=== PATIENT | female | born 1940 | race Caucasian/White ===

== ENCOUNTER 2022-10-28 09:28 | Outpatient (OUT) | payer MEDICARE, SELFPAY ==
[2022-10-28 09:46] LABS: Basophils Percent Auto 0.4 % (0.2-2.0); Eosinophils Absolute Auto 0.2 10^3/uL (0.0-0.7); Hematocrit 43.4 % (36.0-48.0); Hemoglobin 14.2 g/dL (12.0-16.0); Immature Granulocytes Abs Auto 0.01 10^3/uL (0.00-0.03); Immature Granulocytes Pct Auto 0.2 % (0.0-0.5); Lymphocytes Absolute Auto 1.6 10^3/uL (1.2-3.8); Lymphocytes Percent Auto 28.1 % (20.5-60.0); Mean Corpuscular HGB Conc 32.7 g/dL (29.9-35.2); Mean Corpuscular Hemoglobin 31.7 pg (26.7-34.0); Mean Corpuscular Volume 96.9 fL (81.0-99.0); Mean Platelet Volume 9.7 fL (9.5-13.5); Monocytes Absolute Auto 0.7 10^3/uL (0.3-0.8); Neutrophils Absolute Auto 3.2 10^3/uL (1.4-6.5); Neutrophils Percent Auto 55.3 % (43.0-75.0); Platelet Count 200 10^3/uL (150-450); Red Blood Count 4.48 10^6/uL (4.20-5.40); White Blood Count 5.7 10^3/uL (4.0-11.0)
[2022-10-28 10:26] LABS: Anion Gap 11.4; BUN Creatinine Ratio 16.9; Carbon Dioxide 28.5 mmol/L (21.0-32.0); Chloride 104 mmol/L (98-107); Chol HDL Ratio 3.2; Cholesterol 232 mg/dL (<=200); Estimated GFR (African America >60 (>=60); Estimated GFR (Non-African Ame >60 (>=60); Glucose 91 mg/dL (74-106); HDL Cholesterol 73 mg/dL (40-60); Potassium 3.9 mmol/L (3.5-5.1); Sodium 140 mmol/L (136-145); Triglycerides 103 mg/dL (<=150); VLDL CHOLESTEROL 20.6 mg/dL
== END 2022-10-28 09:29 ==
LOC: LAB 09:28
PROVIDERS: PCP Family Medicine
DX: I10 Essential (primary) hypertension (principal)
CPT/HCPCS: 36415; 80048; 80061; 85025

== ENCOUNTER 2022-10-31 10:06 | Outpatient (OUT) | payer MEDICARE, SELFPAY ==
--- NOTE | 2022-10-31 11:12 | CONS_ITS ---
CONSULTATION DATE: ??10/31/2022 TO:? Savanna Guajardo M.D. CHIEF COMPLAINT:? Includes left shoulder pain. HISTORY:? She reports the pain as being 2-7/10 pain, sharp in character, increased with activities such as lifting maneuvers and pushing/pulling maneuvers.? Denied any change in bowel and bladder habits or new sensorimotor changes in the upper or lower extremities. EXAM:? Her examination is notable for patient having no clinical radiculopathy or myelopathy involving the upper extremities.? She had nothing to suggest cervical facet loaded pain clinically on today?s visit.? She did have severe pain with left shoulder extension, internal rotation and adduction, as well as severe pain with left shoulder flexion with internal rotation.? She had a positive left sided empty can sign as well as full can sign, and a positive left sided Apley?s test.? IMPRESSION:? Our impression is patient appears to have chronic pain secondary to possible left rotator cuff tear with impingement syndrome. RECOMMENDATIONS:? I have recommended a left suprascapular nerve injection on today?s visit.? She is unable to have an MRI because of cochlear implants.? She had significant but only temporary reduction in symptoms with the left suprascapular nerve injection.? She may benefit from a rhizotomy of the left suprascapular nerve using radiofrequency ablation.? I have gone over the details of the procedure with the patient.? All her questions answered.? She agrees to proceed with the outlined plan. Of note, status post left suprascapular nerve injection in the office, she reports the pain is improved by at least 75%. As part of providing excellent, safe, comprehensive care, the following was completed at our patient's visit: 1. A medication reconciliation and review to ensure accurate knowledge of current/active medications, including asking our patients to inform us about any leru-eda-dzcjvki medications or herbal remedies/nutritional supplements/alternative remedies. 2. A review to specifically ensure our patients have had annual screening for: elevated body mass index (BMI, see intake chart for exact total), tobacco use, screening for depression, and screening for unhealthy alcohol use.? When screening is concerning, patients are provided with education and the specific recommendation to discuss the concerning health issue and treatment options with their primary care provider. NELSON
--- NOTE | 2022-10-31 11:12 | CONS_ITS ---
PROCEDURE DATE: ??10/31/2022 PROCEDURE:? Left suprascapular nerve injection in the office. PREOPERATIVE DIAGNOSIS:? Left rotator cuff tear.? Diagnosis codes:? S46.012a POSTOPERATIVE DIAGNOSIS:? Left rotator cuff tear. SOLUTION USED FOR INJECTION:? 2 mL of 2% lidocaine, 2 mL of 0.25% Marcaine and 10 mg of Kenalog, total of 5 mL and 1 mL used for the injection. IMMEDIATE COMPLICATIONS:? None. PROCEDURE:? After informed consent was obtained from the patient, placed in the sitting position.? Skin overlying the area was prepped with alcohol.? A 25 gauge 1 ? inch needle was inserted over the area of the suprascapular nerve.? Needle tip was advanced.? Resistance was encountered.? Patient had mild paresthesia, at which point we re-directed the needle tip and the paresthesia completely resolved.? We injected 1 mL of solution.? No indication of intravascular or intraneural needle tip placement.? No evidence of post procedural pneumothorax was noted.? She reports reduction in pain symptoms by at least 75%.? NELSON
== END 2022-10-31 10:07 | disposition home or self-care (01) ==
PROVIDERS: PCP Family Medicine; Visit Provider Anesthesiology Pain Medicine
DX: M25.512 Pain in left shoulder (principal); M75.42 Impingement syndrome of left shoulder; G89.29 Other chronic pain; M75.102 Unspecified rotator cuff tear or rupture of left shoulder, not specified as traumatic
CPT/HCPCS: 64418

== ENCOUNTER 2022-11-14 10:56 | Outpatient (OUT) | payer MEDICARE, SELFPAY ==
--- NOTE | 2022-11-14 11:20 | MM_ITS ---
Patient: EDUARDO LEA Exam Date: 11/14/2022 : 1940 Gender:F Ordering : DR Savanna Guajardo M.D. Admission #: [id number] Family : Order #: [id number] CLICK HERE TO VIEW EXAM RADIOLOGY REPORT PROCEDURE: MM TOMOSYNTHESIS SCREENING BI COMPARISON: MG MAMM SCREEN 3D [facility] CAD, 11/07/2021. MG MAMM SCREEN 3D [facility] CAD, 11/06/2020. MG MAMM SCREEN [facility] W CAD, 11/04/2019. MG MAMM [facility] SCRN W CAD DIG, 09/07/2013. INDICATIONS: Screening Calculator Name NCI Breast Cancer Risk Assessment Tool 5 Year Breast Cancer Risk 1.20% Lifetime Breast Cancer Risk 1.50% Personal Breast Cancer No Personal Ovarian Cancer No Treatments None Family Cancers Mother with ovarian cancer at age ~48. LOCATION: [facility] BREAST COMPOSITION: Extremely dense, which lowers the sensitivity of mammography. FINDINGS: DIAGNOSTIC CATEGORY 2--BENIGN FINDING: RIGHT BREAST: No significant suspicious finding. Scattered benign-appearing calcifications are present. No significant change has occurred. LEFT BREAST: No significant suspicious finding. No significant change has occurred. RECOMMENDATIONS: ROUTINE MAMMOGRAM AND CLINICAL EVALUATION IN 12 MONTHS. PLEASE NOTE: A NORMAL MAMMOGRAM DOES NOT EXCLUDE THE POSSIBILITY OF BREAST CANCER. A CLINICALLY SUSPICIOUS PALPABLE LUMP SHOULD BE BIOPSIED. Dictated by: David Alston M.D. on 11/14/2022 at 15:17 Approved by: David Alston M.D. on 11/14/2022 at 15:22
== END 2022-11-14 10:57 | disposition home or self-care (01) ==
LOC: MAMMO 10:56
PROVIDERS: PCP Family Medicine; Visit Provider Family Medicine
DX: Z12.31 Encounter for screening mammogram for malignant neoplasm of breast (principal); Z80.41 Family history of malignant neoplasm of ovary
CPT/HCPCS: 77063; 77067

== ENCOUNTER 2022-11-19 14:57 | Outpatient (OUT) | payer MEDICARE, SELFPAY ==
--- NOTE | 2022-11-19 17:47 | CONS_ITS ---
CONSULTATION DATE: ??11/19/2022 TO:? Savanna Guajardo M.D. CHIEF COMPLAINT:? Includes 3-5/10 pain in her left upper arm. HISTORY:? She describes it as a dull aching pain, which is increased with activities such as lifting maneuvers, pushing/pulling maneuvers.? She denies any change in bowel and bladder habits or new sensorimotor changes in the upper extremities. EXAMINATION:? Notable for patient having no clinical radiculopathy or myelopathy involving the upper extremities.? Patient appeared to have a moderate amount of crepitus of her left shoulder joint.? She had no tenderness overlying this area; however, she appeared to have some mild tenderness of the left deltoid.? Again, this is mild at best.? She had nothing to suggest rotator cuff dysfunction on today?s visit.? IMPRESSION:? Patient appears to have chronic pain secondary to residual left deltoid muscle tendonitis and/or spasm.? RECOMMENDATIONS:? I recommend no further intervention for her residual pain symptoms, but to continue with the use of baclofen and diclofenac as ordered.? Since she is doing fairly well, we will see the patient back in the office in approximately three months? time or sooner if needed. As part of providing excellent, safe, comprehensive care, the following was completed at our patient's visit: 1. A medication reconciliation and review to ensure accurate knowledge of current/active medications, including asking our patients to inform us about any lmie-apz-jniidwu medications or herbal remedies/nutritional supplements/alternative remedies. 2. A review to specifically ensure our patients have had annual screening for: elevated body mass index (BMI, see intake chart for exact total), tobacco use, screening for depression, and screening for unhealthy alcohol use.? When screening is concerning, patients are provided with education and the specific recommendation to discuss the concerning health issue and treatment options with their primary care provider. NELSON
== END 2022-11-19 14:58 | disposition home or self-care (01) ==
LOC: PM 14:59
PROVIDERS: PCP Family Medicine; Visit Provider Anesthesiology Pain Medicine
DX: G89.29 Other chronic pain (principal); M77.8 Other enthesopathies, not elsewhere classified; M62.838 Other muscle spasm
CPT/HCPCS: G0463

== ENCOUNTER 2022-12-06 09:38 | Outpatient (OUT) | payer MEDICARE, SELFPAY ==
--- NOTE | 2022-12-06 10:04 | PM.CN ---
Consult Note: HPI Data of Consult Patient: known to practice within the last 3 years Requesting Physician: Ana Gracia NP Primary Care Provider: Savanna Guajardo MD Consult Narrative cc:: CC: Ana Gracia NP Review of Systems ROS Status of ROS 10 or more systems reviewed and unremarkable except as noted in history and below Meds Home Medications and Allergies Home Medications Medication Instructions Recorded Confirmed Type acetaminophen 300 mg-codeine 30 mg 1 tab PO BID 11/06/22 11/06/22 History tablet baclofen 10 mg tablet 10 mg PO BID 11/06/22 11/06/22 History calcium-vitamin D3-vitamin K 500 1 tab PO DAILY 11/06/22 11/06/22 History mg-100 unit-40 mcg chewable tablet diclofenac sodium 50 mg 50 mg PO BID 11/06/22 11/06/22 History tablet,delayed release glucosamine-chondroitin 250 mg-200 2 tab PO DAILY 11/06/22 11/06/22 History mg tablet (Osteo Bi-Flex) lactobacillus combo no.13 1 1 cap PO DAILY 11/06/22 11/06/22 History billion cell capsule,delayed release (Probiotic Pearls Complete) magnesium 200 mg tablet 400 mg PO DAILY 11/06/22 11/06/22 History meclizine 25 mg chewable tablet 25 mg PO DAILY 11/06/22 11/06/22 History (Antivert) melatonin 5 mg tablet 5 mg PO DAILY 11/06/22 11/06/22 History metoprolol tartrate 50 mg tablet 50 mg PO DAILY 11/06/22 11/06/22 History multivitamin (Daily Multi-Vitamin 1 tab PO DAILY 11/06/22 11/06/22 History tablet) omega 9-xwo-jyk-fish oil 1,200 mg cap PO 11/06/22 History (144 mg-216 mg) capsule (Fish Oil) prasterone (dhea) 50 mg capsule 50 mg PO DAILY 11/06/22 11/06/22 History (DHEA) tramadol 50 mg tablet 50 mg PO BID 11/06/22 11/06/22 History vitamin B complex (B 1 tab PO DAILY 11/06/22 11/06/22 History Complex-Vitamin B12 tablet) zolmitriptan 5 mg tablet (Zomig) See Rx Instructions PO .COMPLEX 11/06/22 11/06/22 History Allergies Allergy/AdvReac Type Severity Reaction Status Date / Time No Known Drug Allergies Allergy Verified 11/06/22 15:33 Exam Constitutional Common normals: no apparent distress, average body habitus, oriented x3, healthy appearing, alert and well nourished General appearance: cooperative and well developed HENOR Common normals: normocephalic Head and scalp: normocephalic Head images: 1. Mouth: oral and palatal mucosa normal Eye Common normals: PERRL Pupil: PERRL Neck & C-Spine Common normals: full ROM General: normal visual inspection Cervical spine: cervical ROM abnormal, pain with cervical ROM, paracervical muscle tenderness and trapezius muscle tenderness Neck images: 1. Chest Common normals: inspection of chest normal Respiratory Common normals: normal respiratory effort, no retractions and no use of accessory muscles Back & Pelvis Thoracic spine/upper back: normal to inspection and thoracic ROM normal Lumbar spine/lower back: normal to inspection and lumbar ROM normal Extremity Common normals: normal to inspection and full ROM General: normal exam except as noted Neuro Common normals: oriented x3, CN's II-XII intact bilaterally, moves all extremities, no focal motor deficits, no sensory deficits noted, deep tendon reflexes 2+ bilaterally and gait normal Sensorium/orientation: alert Cranial nerves: CN normal except as noted Speech: speech normal Gait (neuro): normal gait Sensory exam: extremities Motor exam: strength 5/5 throughout and no movement abnormalities noted Psych Common normals: mental status grossly normal, thought process normal, cooperative, affect normal, speech normal and activity/motor behavior normal Attitude: calm and engaged Speech: normal speech Thought process: normal thought process Assessment and Plan Assessment and Plan (1) Cervical spondylosis: (2) Spondylosis of cervical region without myelopathy or radiculopathy: (3) Muscle spasm: Plan Pt following up in office for chronic neck pain. Patient experiencing pain in cervical area radiating down into shoulders. Patient has increased pain with lifting and activity, worsens throughout the day and evening. Patient experiencing pain bilaterally worse on the left than right. Sensation and strength intact 5/5 BUE. No radiculopathy, no headaches. Patient has failed conservative therapies at home including stretches, heat/ice, and prn NSAID use. Patient had FI in C3/4 13 Sep 2022 and received 80% relief of pain and improvement in ADLs. Patient would like to repeat FI injection to work towards a RFA thermal ablation. Patient prescribed naloxone as she is on tramadol, reviewed instructions with patient and importance of having while she is on a high risk opiod medication. Patients questions answered, will schedule for FI #2 and follow up in office.
== END 2022-12-06 09:39 | disposition home or self-care (01) ==
LOC: PM 09:39
PROVIDERS: PCP Family Medicine; Visit Provider Nurse Practitioner
DX: M47.812 Spondylosis without myelopathy or radiculopathy, cervical region (principal); M62.838 Other muscle spasm
CPT/HCPCS: G0463

== ENCOUNTER 2022-12-24 06:50 | Day surgery (SDC) | payer MEDICARE, SELFPAY ==
[2022-12-24 07:25] VITALS: BP 140/68; PULSE 54; RESP 16; TEMP 36.2; O2SAT 98
[2022-12-24 08:01] VITALS: RESP 20
[2022-12-24 08:03] VITALS: BP 143/66; PULSE 60; O2SAT 96
[2022-12-24] MEDS: BUPIVACAINE HCL 0.25% PF 25 MG/10 ML VIAL 8 ML INJ (08:04)
[2022-12-24 08:05] VITALS: BP 158/72; PULSE 57; O2SAT 96
--- NOTE | 2022-12-24 08:39 | W.PM.PROCNOT ---
Date of procedure: 12/24/22 Pre-op diagnosis: cervical spondylosis Post-op diagnosis: same as pre-op Procedure: Bilateral cervical 3/4, 4/5 facet injection Under fluoroscopic guidance Solution injected: 2millilitersMarcaine 0.25% Anesthesia :none Immediate complications none Time out process compliant After informed consent obtained from the patient placed in the Prone proposition . area was prepped and draped in a sterile fashion using betadine. 25 gauge spinal needle inserted over each of the above mentioned target areas . [place] were directed towards the target under fluoroscopic guidance . after encountering each of the targets , no indication of intravascular intraneuronal or intrathecal needle tip placement. Then 0 .5 to 1 Milliliter was injected at each level. [place] removed postoperatively. patient transferred to recovery in stable condition to be discharged home after meeting criteria Anesthesia: Local Surgeon: Christian Mortensen Condition: stable
== END 2022-12-24 08:14 | disposition home or self-care (01) ==
PROVIDERS: PCP Family Medicine; Visit Provider Anesthesiology Pain Medicine
DX: M47.812 Spondylosis without myelopathy or radiculopathy, cervical region (principal)
CPT/HCPCS: 64490; 64491

== ENCOUNTER 2023-01-01 08:36 | Outpatient (OUT) | payer MEDICARE, SELFPAY ==
--- NOTE | 2023-01-01 08:30 | PM.CN ---
Consult Note: HPI Data of Consult Patient: known to practice within the last 3 years Requesting Physician: Ana Gracia NP Primary Care Provider: Savanna Guajardo MD Consult Narrative Reason for consult: f/u from 12/24/22 Bilateral cervical 3/4, 4/5 facet injection #2 Narrative: Ninfa Franco a pleasant 82 year old female presents for evaluation of chronic neck and low back pain and evaluation after bilateral C 3/4 4/5 FB #2 procedure on 12/24. Patient received >80% pain relief and improvement in functional ability immediately following the procedure and for hours following. Patient found this to be beneficial and would like to discuss thermal RFA at bilateral C3/4 C4/5. cc:: CC: Ana Gracia NP Review of Systems ROS Status of ROS 10 or more systems reviewed and unremarkable except as noted in history and below Musculoskeletal Reports: back pain, neck pain, joint pain and muscle cramps PFSH PFS Medical History (Updated 01/01/23 @ 09:20 by Ana Gracia NP) Surgical History Meds Home Medications and Allergies Home Medications Medication Instructions Recorded Confirmed Type acetaminophen 300 mg-codeine 30 mg 1 tab PO BID 11/06/22 12/24/22 History tablet baclofen 10 mg tablet 10 mg PO BID 11/06/22 12/24/22 History calcium-vitamin D3-vitamin K 500 1 tab PO DAILY 11/06/22 12/24/22 History mg-100 unit-40 mcg chewable tablet diclofenac sodium 50 mg 50 mg PO BID 11/06/22 12/24/22 History tablet,delayed release glucosamine-chondroitin 250 mg-200 2 tab PO DAILY 11/06/22 12/24/22 History mg tablet (Osteo Bi-Flex) lactobacillus combo no.13 1 1 cap PO DAILY 11/06/22 12/24/22 History billion cell capsule,delayed release (Probiotic Pearls Complete) magnesium 200 mg tablet 400 mg PO DAILY 11/06/22 12/24/22 History meclizine 25 mg chewable tablet 25 mg PO DAILY 11/06/22 12/24/22 History (Antivert) melatonin 5 mg tablet 5 mg PO DAILY 11/06/22 12/24/22 History metoprolol tartrate 50 mg tablet 50 mg PO DAILY 11/06/22 12/24/22 History multivitamin (Daily Multi-Vitamin 1 tab PO DAILY 11/06/22 12/24/22 History tablet) omega 8-ths-zzj-fish oil 1,200 mg cap PO 11/06/22 History (144 mg-216 mg) capsule (Fish Oil) prasterone (dhea) 50 mg capsule 50 mg PO DAILY 11/06/22 12/24/22 History (DHEA) tramadol 50 mg tablet 50 mg PO BID 11/06/22 12/24/22 History vitamin B complex (B 1 tab PO DAILY 11/06/22 12/24/22 History Complex-Vitamin B12 tablet) zolmitriptan 5 mg tablet (Zomig) See Rx Instructions PO .COMPLEX 11/06/22 12/24/22 History Allergies Allergy/AdvReac Type Severity Reaction Status Date / Time No Known Drug Allergies Allergy Verified 12/24/22 07:27 Exam Narrative Exam Narrative: JEAN 11% Constitutional Documenting provider has reviewed patient's vital signs: yes Common normals: no apparent distress, average body habitus, oriented x3, healthy appearing, alert and well nourished General appearance: cooperative HENMT Common normals: normocephalic, hearing grossly normal bilaterally and moist oral mucous membranes Head and scalp: normocephalic Eye Common normals: PERRL Pupil: PERRL Neck & C-Spine Common normals: full ROM General: normal visual inspection Cervical spine: pain with cervical ROM and paracervical muscle tenderness Other: no radiculopathy. predominately axial neck pain Chest Common normals: inspection of chest normal Respiratory Common normals: normal respiratory effort, no retractions and no use of accessory muscles Back & Pelvis Thoracic spine/upper back: normal to inspection and thoracic ROM normal Lumbar spine/lower back: ROM limited and pain with ROM Sacroiliac joints: SI joint(s) abnormal (pain over left SIJ and with EVERT. Negative thigh thrust, danette, gaenslen) Extremity Common normals: normal to inspection and full ROM Neuro Common normals: oriented x3, CN's II-XII intact bilaterally, moves all extremities, no focal motor deficits, no sensory deficits noted, deep tendon reflexes 2+ bilaterally and gait normal Sensorium/orientation: alert Motor exam: strength 5/5 throughout and no movement abnormalities noted Psych Common normals: mental status grossly normal, thought process normal, cooperative, affect normal, speech normal and activity/motor behavior normal Speech: normal speech Thought process: normal thought process Results Additional Findings Additional findings: I have checked an [place]AR[place] report on this patient today and there are no aberrancies noted in the prescribing history.?? A drug screen was completed and reviewed within the last year, and if there has not been a drug screen completed we ordered one today to monitor higher risk, state monitored pain medication use. As part of providing excellent, safe, comprehensive care, the following was completed at our patient's visit: 1. A medication reconciliation and review to ensure accurate knowledge of current/active medications, including asking our patients to inform us about any gohi-wnc-whwcviz medications or herbal remedies/nutritional supplements/alternative remedies. 2. A review to specifically ensure our patients have had annual screening for: elevated body mass index (BMI), tobacco use, screening for depression, and screening for unhealthy alcohol use. When screening is concerning, patients are provided with education and the specific recommendation to discuss the concerning health issue and treatment options with their primary care provider. Assessment and Plan Assessment and Plan (1) Spondylosis of cervical region without myelopathy or radiculopathy: (2) Cervical spondylosis: (3) Muscle spasm: (4) Lumbar spondylosis: (5) Chronic left hip pain: Assessment and Plan: patient reporting left chronic hip pain, see assessment above will order left hip and SIJ xray (6) Chronic, continuous use of opioids: Assessment and Plan: no side effects. risks vs benefits discussed. (7) Medication management: Plan left then right c3/4 C4/5 thermal RFA with PO sedation (will order 5-10mg valium PRN prior to procedure) left hip/SIJ xray UTOX today refill diclofenac 50mg BID pain continue baclofen 10mg 1/2 tab-1tab HS PRN muscle spasms continue tramadol 50mg BID PRN pain continue HEP consider lumbar facet blocks next as patient demonstrating low back pain with radiation to left hip but no radiculopathy or neurogenic claudication, reviewed prior imaging of lumbar spine
--- NOTE | 2023-01-01 09:36 | XR_ITS ---
The [address] [address] Patient Name: EDUARDO LEA MRN: [id number] date: 1940 Sex: F Assigned Patient Location: PM Current Patient Location: Accession/Order Number: [id number] Exam Date: 01/01/2023 09:45 Report Date: 01/01/2023 13:39 At the request of: WILBERT BARRAGAN Procedure: XR hip LT 2V w/ pelvis PROCEDURE: XR hip LT 2V w/ pelvis DATE: 01/01/2023 8:45 AM CDT COMPARISONS: None CLINICAL INDICATION: Left hip pain FINDINGS: There is no evidence of fractures or other acute osseous abnormalities. There is some bone demineralization. There is no evidence of left hip degenerative change. There is evidence of some degenerative spondylosis of the lower lumbar spine seen on frontal view the pelvis. XR/XR hip LT 2V w/ pelvis IMPRESSION: No acute osseous abnormalities identified. No evidence of left hip degenerative changes.. Electronically authenticated by: GUILLERMO EM Date: 01/01/2023 13:39
== END 2023-01-01 08:37 | disposition home or self-care (01) ==
PROVIDERS: PCP Family Medicine; Visit Provider Nurse Practitioner
DX: M47.812 Spondylosis without myelopathy or radiculopathy, cervical region (principal); M62.838 Other muscle spasm; M47.816 Spondylosis without myelopathy or radiculopathy, lumbar region; M25.552 Pain in left hip; G89.29 Other chronic pain; Z79.891 Long term (current) use of opiate analgesic; Z51.81 Encounter for therapeutic drug level monitoring
CPT/HCPCS: 73502; G0463

== ENCOUNTER 2023-01-10 10:30 | Outpatient (OUT) | payer MEDICARE, SELFPAY ==
--- NOTE | 2023-01-10 10:39 | XR_ITS ---
The [address] [address] Patient Name: EDUARDO LEA MRN: [id number] date: 1940 Sex: F Assigned Patient Location: [facility] Current Patient Location: [facility] Accession/Order Number: [id number] Exam Date: 01/10/2023 10:55 Report Date: 01/10/2023 11:16 At the request of: RUBA HIGGINS Procedure: XR lumbar spine 2-3V EXAM: XR lumbar spine 2-3V HISTORY: Lesion Sciatic Nerve G57.02 COMPARISON: None. TECHNIQUE: 3 views FINDINGS: S-shaped scoliosis. Maintained vertebral body heights and disc spaces. Multilevel endplate degenerative changes of facet arthropathy. No gross acute fracture or subluxation. Constipation. Current exam is underpenetrated. XR/XR lumbar spine 2-3V IMPRESSION: Suboptimal exam that is underpenetration. Multilevel degenerative changes. Electronically authenticated by: CRUZ CARIAS Date: 01/10/2023 11:16
== END 2023-01-10 10:31 | disposition home or self-care (01) ==
LOC: RAD 10:33
PROVIDERS: PCP Family Medicine; Visit Provider Family Medicine
DX: G57.02 Lesion of sciatic nerve, left lower limb (principal)
CPT/HCPCS: 72100

== ENCOUNTER 2023-02-11 08:24 | Day surgery (SDC) | payer MEDICARE, SELFPAY ==
[2023-02-11 09:00] VITALS: BP 132/79; PULSE 75; RESP 16; TEMP 36.4; O2SAT 98
[2023-02-11] MEDS: 0.9 % SODIUM CHLORIDE 500 ML IV (09:13)
[2023-02-11] MEDS: BUPIVACAINE HCL 0.25% PF 25 MG/10 ML VIAL INJ (09:44)
[2023-02-11] MEDS: LIDOCAINE HCL 2% 400 MG/20 ML MDV 15 ML INJ (09:44)
[2023-02-11] MEDS: METHYLPREDNISOLONE ACETATE 40 MG/ML VIAL INJ (09:45)
[2023-02-11 10:02] VITALS: BP 120/65; PULSE 56; RESP 16; TEMP 36.7; O2SAT 100
[2023-02-11 10:05] VITALS: BP 121/62; PULSE 62; RESP 16; TEMP 36.7; O2SAT 99
--- NOTE | 2023-02-11 10:05 | W.PM.PROCNOT ---
Date of procedure: 02/11/23 Pre-op diagnosis: Cervical spondylosis Post-op diagnosis: same as pre-op Procedure: Left Cervical 3/4, 4/5 Radiofrequency ablation Under fluoroscopic guidance Rhizotomy was created using radio frequency ablation at 80?C for 90 seconds 1 to 2 lesions created at each site. Post lesioning injection of 2 mL each of 0.25% Marcaine and 2% lidocaine with Depo-Medrol 40mg. 0.5 to 1 mL injected at each site IV in place yes If Intravenous fluids: NS at KVO Anesthesia local 2% lidocaine for Anesthesia Other: MAC Timeout process compliant After informed consent obtained.Patient brought to the procedure room placed in the prone position skin overlying the area was prepped and draped in a sterile fashion using betadine. 25 gauge needle was used to create a skin wheal over each of the targeted areas utilizing 2% lidocaine. A rhizotomy needle with a 10 mm active tip was inserted over each of the anesthetized areas and directed towards each of the medial branches accomplished under fluoroscopic guidance. after encountering the same we had positive sensory stimulation, negative motor stimulation was noted. lesions were then created. Post lesioning, steroid solution was injected needles removed. Patient was transferred to recovery room in stable condition to be discharged home after meeting criteria. Anesthesia: Local Surgeon: Christian Mortensen Condition: stable
== END 2023-02-11 10:25 | disposition home or self-care (01) ==
LOC: SURGOUT 08:24
PROVIDERS: PCP Family Medicine; Visit Provider Anesthesiology Pain Medicine
DX: M47.812 Spondylosis without myelopathy or radiculopathy, cervical region (principal)
CPT/HCPCS: 64633; 64634; J1030; J2704

== ENCOUNTER 2023-02-25 08:07 | Day surgery (SDC) | payer MEDICARE, SELFPAY ==
[2023-02-25 08:52] VITALS: BP 144/75; PULSE 64; RESP 16; TEMP 36.7; O2SAT 95
[2023-02-25] MEDS: 0.9 % SODIUM CHLORIDE 500 ML IV (08:57)
[2023-02-25] MEDS: BUPIVACAINE HCL 0.25% PF 25 MG/10 ML VIAL 4 ML INJ (09:53)
[2023-02-25] MEDS: LIDOCAINE HCL 2% 400 MG/20 ML MDV 10 ML INJ (09:54)
[2023-02-25] MEDS: METHYLPREDNISOLONE ACETATE 40 MG/ML VIAL INJ (09:54)
[2023-02-25 10:06] VITALS: BP 126/70; PULSE 55; RESP 16; TEMP 36.4; O2SAT 97
[2023-02-25 10:10] VITALS: BP 130/69; PULSE 60; RESP 16; TEMP 36.4; O2SAT 96
--- NOTE | 2023-02-25 10:42 | W.PM.PROCNOT ---
Date of procedure: 02/25/23 Pre-op diagnosis: Cervical Spondylosis Post-op diagnosis: same as pre-op Procedure: Right Cervical 3/4, 4/5 Radiofrequency ablation Under fluoroscopic guidance Rhizotomy was created using radio frequency ablation at 80?C for 90 seconds 1 to 2 lesions created at each site. Post lesioning injection of 2 mL each of 0.25% Marcaine and 2% lidocaine with Depo-Medrol 40mg. 0.5 to 1 mL injected at each site IV in place yes If Intravenous fluids: NS at KVO Anesthesia local 2% lidocaine for Anesthesia Other: MAC Timeout process compliant After informed consent obtained.Patient brought to the procedure room placed in the prone position skin overlying the area was prepped and draped in a sterile fashion using betadine. 25 gauge needle was used to create a skin wheal over each of the targeted areas utilizing 2% lidocaine. A rhizotomy needle with a 10 mm active tip was inserted over each of the anesthetized areas and directed towards each of the medial branches accomplished under fluoroscopic guidance. after encountering the same we had positive sensory stimulation, negative motor stimulation was noted. lesions were then created. Post lesioning, steroid solution was injected needles removed. Patient was transferred to recovery room in stable condition to be discharged home after meeting criteria. Anesthesia: MAC Surgeon: Christian Mortensen Condition: stable
== END 2023-02-25 10:30 | disposition home or self-care (01) ==
LOC: SURGOUT 08:08
PROVIDERS: PCP Family Medicine; Visit Provider Anesthesiology Pain Medicine
DX: M47.812 Spondylosis without myelopathy or radiculopathy, cervical region (principal)
CPT/HCPCS: 64633; 64634; J1030; J2704

== ENCOUNTER 2023-03-27 08:23 | Outpatient (OUT) | payer MEDICARE, SELFPAY ==
--- NOTE | 2023-03-27 08:44 | PM.CN ---
Consult Note: HPI Data of Consult Patient: known to practice within the last 3 years Requesting Physician: Ana Gracia NP Primary Care Provider: Savanna Guajardo MD Consult Narrative Narrative: Ninfa Franco a pleasant 82 year old female presents for evaluation of chronic neck pain. Reporting 95% improvement on left side, no improvement on right side. Pain 5/10 achey pulling sensation improved with topical creams. cc:: CC: Ana Gracia NP Review of Systems ROS Status of ROS 10 or more systems reviewed and unremarkable except as noted in history and below Musculoskeletal Reports: neck pain PFSH PFSH Medical History (Updated 01/01/23 @ 09:20 by Ana Gracia NP) Hearing deficit ?H91.90 - Unspecified hearing loss, unspecified ear (ICD-10) Osteoarthritis ?M19.90 - Unspecified osteoarthritis, unspecified site (ICD-10) Surgical History History of bunionectomy of left great toe ?Z98.890 - Other specified postprocedural states (ICD-10) History of cervical discectomy ?Z98.890 - Other specified postprocedural states (ICD-10) History of hysterectomy ?Z90.710 - Acquired absence of both cervix and uterus (ICD-10) History of stapedectomy ?Z90.09 - Acquired absence of other part of head and neck (ICD-10) Meds Home Medications and Allergies Home Medications Medication Instructions Recorded Confirmed Type calcium-vitamin D3-vitamin K 500 1 tab PO DAILY 11/06/22 02/25/23 History mg-100 unit-40 mcg chewable tablet diclofenac sodium 50 mg 50 mg PO BID 11/06/22 02/25/23 History tablet,delayed release glucosamine-chondroitin 250 mg-200 2 tab PO DAILY 11/06/22 02/25/23 History mg tablet (Osteo Bi-Flex) lactobacillus combo no.13 1 1 cap PO DAILY 11/06/22 02/25/23 History billion cell capsule,delayed release (Probiotic Pearls Complete) magnesium 200 mg tablet 400 mg PO DAILY 11/06/22 02/25/23 History meclizine 25 mg chewable tablet 25 mg PO DAILY 11/06/22 02/25/23 History (Antivert) metoprolol tartrate 50 mg tablet 50 mg PO DAILY 11/06/22 02/25/23 History multivitamin (Daily Multi-Vitamin 1 tab PO DAILY 11/06/22 02/25/23 History tablet) omega 1-fei-dkz-fish oil 1,200 mg cap PO 11/06/22 History (144 mg-216 mg) capsule (Fish Oil) prasterone (dhea) 50 mg capsule 50 mg PO DAILY 11/06/22 02/25/23 History (DHEA) tramadol 50 mg tablet 50 mg PO BID 11/06/22 02/25/23 History vitamin B complex (B 1 tab PO DAILY 11/06/22 02/25/23 History Complex-Vitamin B12 tablet) zolmitriptan 5 mg tablet (Zomig) See Rx Instructions PO .COMPLEX 11/06/22 02/25/23 History tramadol 50 mg tablet 50 mg PO BID PRN pain 01/01/23 02/25/23 History Allergies Allergy/AdvReac Type Severity Reaction Status Date / Time No Known Drug Allergies Allergy Verified 02/25/23 08:49 Exam Narrative Exam Narrative: JEAN 11% Constitutional Documenting provider has reviewed patient's vital signs: yes Common normals: no apparent distress, average body habitus, oriented x3, healthy appearing, alert and well nourished General appearance: cooperative HENMT Common normals: normocephalic, hearing grossly normal bilaterally and moist oral mucous membranes Head and scalp: normocephalic Eye Common normals: PERRL Pupil: PERRL Neck & C-Spine Common normals: full ROM General: normal visual inspection Cervical spine: paracervical muscle tenderness Other: muscle tenderness Neck images: 1. 2. Chest Common normals: inspection of chest normal Respiratory Common normals: normal respiratory effort, no retractions and no use of accessory muscles Extremity Common normals: normal to inspection and full ROM Neuro Common normals: oriented x3, CN's II-XII intact bilaterally, moves all extremities, no focal motor deficits, no sensory deficits noted, deep tendon reflexes 2+ bilaterally and gait normal Sensorium/orientation: alert Motor exam: strength 5/5 throughout and no movement abnormalities noted Psych Common normals: mental status grossly normal, thought process normal, cooperative, affect normal, speech normal and activity/motor behavior normal Speech: normal speech Thought process: normal thought process Assessment and Plan Assessment and Plan (1) Cervical spondylosis: (2) Chronic, continuous use of opioids: Assessment and Plan: no side effects. risks vs benefits discussed. (3) Medication management: (4) Muscle spasm: Plan refill diclofenac 50mg BID pain continue baclofen 10mg 1/2 tab-1tab HS PRN muscle spasms continue tramadol 50mg BID PRN pain continue HEP start tens unit consider right cervical TPI if pain persists f/u when returns from [place] in the spring
== END 2023-03-27 08:24 | disposition home or self-care (01) ==
PROVIDERS: PCP Family Medicine; Visit Provider Nurse Practitioner
DX: M47.812 Spondylosis without myelopathy or radiculopathy, cervical region (principal); Z79.891 Long term (current) use of opiate analgesic; Z51.81 Encounter for therapeutic drug level monitoring; M62.838 Other muscle spasm
CPT/HCPCS: G0463

== ENCOUNTER 2023-09-09 18:18 | Emergency (ER) | payer MEDICARE, SELFPAY ==
[2023-09-09 18:20] VITALS: BP 149/89; PULSE 87; O2SAT 98; BMI 20.5
--- OUTSIDE RECORDS SUMMARY | 2023-09-09 18:26 | XMS_ITS | CCD ---
Author Organization [facility] Care Team Providers Care Reconsignment Clerk Name Role Phone GISELA, DR SAVANNA Willis Primary Care Unavailable BECKER ., DR VALENTINA Rothman Attending Unavailable BECKER ., DR VALENTINA Rothman Admitting Unavailable GUAJARDO, DR SAVANNA Willis Primary Care Unavailable BECKER ., DR VALENTINA Rothman Attending Unavailable BECKER ., DR VALENTINA Rothman Admitting Unavailable GUAJARDO, DR SAVANNA Willis Primary Care Unavailable BECKER ., DR VALENTINA Rothman Attending Unavailable BECKER ., DR VALENTINA Rothman Admitting Unavailable BECKER ., DR VALENTINA Rothman Admitting Unavailable BECKER ., DR VALENTINA Rothman Attending Unavailable GUAJARDO, DR SAVANNA Willis Consulting Unavailable GUAJARDO, DR SAVANNA Willis Primary Care Unavailable BECKER ., DR VALENTINA Rothman Consulting Unavailable LAKSHMIPATHY ., NARJOSHUAATH Admitting Jessy vailable LAKSHMIPATHY ., NARPAULINA Consulting Jessy vailable LAKSHMIPATHY ., AJ Attending Jessy vailable GUAJARDO, DR SAVANNA Willis Primary Care Unavailable GUAJARDO, DR SAVANNA Willis Primary Care Unavailable GUAJARDO, DR SAVANNA Willis Attending Unavailable MORAN, DR MINE Barriga Consulting Unavailable GUAJARDO, DR SAVANNA Willis Admitting Unavailable GUAJARDO, DR SAVANNA Willis Consulting Unavailable GUAJARDO, DR SAVANNA Willis Attending Unavailable GUAJARDO, DR SAVANNA Willis Admitting Unavailable BIRGIT, DR PB Mitchell Consulting Unavailable GUAJARDO, DR SAVANNA Willis Primary Care Unavailable GUAJARDO, DR SAVANNA Willis Consulting Unavailable GISELA, DR SAVANNA Willis Primary Care Unavailable LAKSHMIPATHY ., AJ Attending Jessy vailable LAKSHMIPATHY ., NARENDLOWELLATH Admitting Jessy vailable LAKSHMIPATHY ., NARPAULINA Consulting Jessy vailable RASTEGAR, ISAEL Consulting Unavailable GISELA, DR SAVANNA Willis Primary Care Unavailable GUAJARDO, DR SAVANNA Willis Consulting Unavailable GUAJARDO, DR SAVANNA Willis Attending Unavailable GUAJARDO, DR SAVANNA Willis Admitting Unavailable BECKER ., DR VALENTINA Rothman Admitting Unavailable BECKER ., DR VALENTINA Rothman Consulting Unavailable ROSITA ., DR VALENTINA Rothman Attending Unavailable GISELA, DR SAVANNA Willis Primary Care Unavailable ROSITA ., DR VALENTINA Rothman Admitting Unavailable ROSITA ., DR VALENTINA Rothman Attending Unavailable GISELA, DR SAVANNA Willis Primary Care Unavailable GISELA, DR SAVANNA Willis Consulting Unavailable VALERA ., JOLYNN Consulting Unavailable GISELA, DR SAVANNA Willis Primary Care Unavailable LAKSHMIPATHY ., NARENDRANATH Attending Jessy vacharismable MIMIMIERICY ., NARENDRANATH Admitting Jessy vailable LAKSHMIPATHY ., NARENDRANATH Consulting Jessy Savanna Mcclure Medications Current Medications Medication Drug Class(es) Dates Sig (Normalized) Sig (Original) atenolol 50 mg oral tablet (1 source) beta-Adrenergic Tera Start: 03-28-2023 take 1 tablet by mouth every twenty-four hours Atenolol 50 MG 1 tablet Orally Once a day for 90 days Mar, Active diclofenac potassium 25 mg oral tablet (7 sources) Nonsteroidal Anti-inflammatory Drug take 1 tablet by mouth four times daily at mealtime as needed Diclofenac Potassium 25 MG 1 tablet with food or milk as needed Orally Four times a day Active meclizine hydrochloride 25 mg oral tablet (7 sources) Antiemetic take 1 tablet by mouth every six hours as needed Meclizine HCl 25 MG 1 tablet orally every 6 hours prn for 30 days Active Metoprolol (7 sources) beta-Adrenergic Tera Metoprolol Succinate 25 MG 1 tablet once a day Active Multivitamin preparation (7 sources) Multivitamin Active predniSONE 20 mg oral tablet (5 sources) Start: 01-10-2023 take 2 tablets by mouth every twenty-four hours predniSONE 20 MG 2 tablets Orally Once a day for 5 days Jan, Active traMADol (5 sources) Opioid Agonist traMADol HCl Active Completed/Discontinued Medications Medication Drug Class(es) Dates Sig (Normalized) Sig (Original) triamcinolone acetonide 40 mg/ml injectable suspension (10 sources) Corticosteroid Start: 09-25-2022 Kenalog-40 Jan, 60 mg Problems Active Problems Problem Classification Problem Date Documented Date Episodic/Chronic Disorders of lipid metabolism (10 sources) Pure hypercholesterolemia; Translations: [Pure hypercholesterolemia, unspecified] Onset: 09-16-2013 Chronic Essential hypertension (8 sources) Essential (primary) hypertension; Translations: [Essential hypertension] Onset: 11-09-2021 Chronic Immunizations and screening for infectious disease (5 sources) Vaccination given; Translations: [Encounter for immunization] Episodic Nonspecific chest pain (4 sources) Chest pain, unspecified; Translations: [CHEST PAIN UNSPECIFIED] Onset: 10-02-2022 Episodic Osteoarthritis (1 source) Primary osteoarthritis, left shoulder; Translations: [PRIMARY OSTEOARTHRITIS LT SHOULDER] Onset: 12-27-2021 Chronic Other connective tissue disease (1 source) Other muscle spasm; Translations: [OTHER MUSCLE SPASM] Onset: 09-09-2022 Episodic Other hereditary and degenerative nervous system conditions (5 sources) Essential tremor; Translations: [Essential tremor] Onset: 03-12-2016 Chronic Other injuries and conditions due to external causes (5 sources) History of fall; Translations: [History of falling] Episodic Other lower respiratory disease (1 source) Pleurodynia; Translations: [PLEURODYNIA] Onset: 10-03-2022 Episodic Other nervous system disorders (1 source) Other chronic pain; Translations: [OTHER CHRONIC PAIN] Onset: 09-09-2022 Chronic Other nervous system disorders (5 sources) Carpal tunnel syndrome; Translations: [Carpal tunnel syndrome, right upper limb] Chronic Other nervous system disorders (5 sources) Left-sided piriformis syndrome; Translations: [Lesion of sciatic nerve, left lower limb] Chronic Other nervous system disorders (1 source) Lesion of sciatic nerve, left lower limb Chronic Other non-traumatic joint disorders (5 sources) Pain in left shoulder; Translations: [PAIN IN LEFT SHOULDER] Onset: 12-25-2021 Episodic Other screening for suspected conditions (not mental disorders or infectious disease) (5 sources) Encounter for screening mammogram for malignant neoplasm of breast; Translations: [ENC SCR MAMMO MALIG NEOPLASM BREAST] Onset: 11-07-2021 Episodic Other skin disorders (5 sources) Actinic keratosis; Translations: [Actinic keratosis] Episodic Other upper respiratory disease (7 sources) Seasonal allergic rhinitis; Translations: [Other seasonal allergic rhinitis] Onset: 09-10-2017 Chronic Other upper respiratory disease (5 sources) Allergic rhinitis; Translations: [Allergic rhinitis, unspecified] Chronic Other upper respiratory disease (1 source) Other seasonal allergic rhinitis Chronic Skin and subcutaneous tissue infections (9 sources) Cellulitis of right lower limb; Translations: [Cellulitis of right lower limb] Onset: 12-31-2021 Episodic Spondylosis; intervertebral disc disorders; other back problems (5 sources) Spondylosis without myelopathy or radiculopathy, cervical region; Translations: [SPONDYLS W/O MYELO-/RADICULOP CERV] Onset: 09-09-2022 Chronic Spondylosis; intervertebral disc disorders; other back problems (4 sources) Cervicalgia; Translations: [CERVICALGIA] Onset: 09-05-2022 Episodic Past or Other Problems Problem Classification Problem Date Documented Da te Episodic/Chronic Coagulation and hemorrhagic disorders (15 sources) Spontaneous ecchymosis; Translations: [Spontaneous ecchymoses] Onset: 12-26-2017 Episodic Other connective tissue disease (4 sources) Muscle wasting and atrophy, not elsewhere classified, unspecified site; Translations: [MUSCLE WASTING ATROPHY NEC UNS SITE] Onset: 01-28-2022 Episodic Other non-traumatic joint disorders (5 sources) Shoulder joint pain; Translations: [Pain in right shoulder] Onset: 03-12-2016 Episodic Residual codes; unclassified (1 source) Family history of malignant neoplasm of ovary; Translations: [FAM HX MALIGNANT NEOPLASM OVARY] Onset: 11-09-2021 Episodic Results Test Name Value Interpretation Reference Range Facil ity XR RIBS LT PA Stephen XR RIBS LT PA CH EXAMINATION: XR RIBS LT PA CH HISTORY: Chest pain ; left upper anterior rib pain since injury 6 days ago COMPARISON: No relevant comparison available. FINDINGS: LUNGS: Hyperexpanded lungs. No acute infiltrates or mass. PLEURA: No pneumothorax, effusion, or pleural thickening. MEDIASTINUM: No visible mass or adenopathy. CARDIAC: No cardiomegaly or cardiac silhouette abnormality. RIBS: No fracture. OTHER: Degenerative spurring along the inferior articular margin of humeral heads bilaterally. IMPRESSION: 1. No appreciable rib abnormality. 2. No acute cardiopulmonary process. Electronically authenticated by: PB GENAO Date: 2022-10-02 11:51 Normal [facility] XR CSPINE 2_3 VIEWSon 2022 XR CSPINE 2_3 VIEWS EXAM: XR CSPINE 2_3 VIEWS HISTORY: Neck pain COMPARISON: 12/13/2019 TECHNIQUE: 3 views cervical spine. FINDINGS: Bones: No radiographic evidence of fracture. Normal vertebral body heights. No aggressive appearing lesion. Alignment: No pathologic listhesis or abnormal curvature. Degenerative findings: There is fusion of C5-C6 vertebral body. There is disc desiccation at C6-C7. There are facet arthropathy. Additional findings: None. IMPRESSION: No acute finding. If symptoms persist, cervical spine MRI is recommended for better evaluation. Electronically authenticated by: ISAEL GRIFFIN Date: 2022-09-05 15:58 Normal [facility] CBC AUTO DIFFon 12-31-2021 BASO # 0.0 103/ul Normal 0.0-0.1 [facility] Comment on above: Performed By: #### C BC #### [facility] [address] [place] [address] Dr. Radha Land Basophils/100 WBC (Bld) 0.2 % Normal 0.2-2.0 [facility] Comment on above: Performed By: #### C BC #### [facility] [address] [place] [address] Dr. Radha Land EO # 0.2 103/ul Normal 0.0-0.7 [facility] Comment on above: Performed By: #### C BC #### [facility] [address] [place] [address] Dr. Radha Land Eosinophils/100 WBC (Bld) 1.7 % Normal 0.9-7.0 [facility] Comment on above: Performed By: #### C BC #### [facility] [address] [place] [address] Dr. Radha Land Erythrocyte distribution width (RBC) [Ratio] 13.4 % Normal 11.0-15.0 [facility] Comment on above: Performed By: #### C BC #### [facility] [address] [place] [address] Dr. Radha Land Hematocrit (Bld) [Volume fraction] 40.9 % Normal 36.0-48.0 [facility] Comment on above: Performed By: #### C BC #### [facility] [address] [place] [address] Dr. Radha Land Hemoglobin (Bld) [Mass/Vol] 13.1 g/dL Normal 12.0-16.0 [facility] Comment on above: Performed By: #### C BC #### [facility] [address] [place] [address] Dr. Radha Land IG # 0.05 10e3/ul Critically high 0.00-0.03 [facility] Comment on above: Performed By: #### C BC #### [facility] [address] [place] [address] Dr. Radha Land IG % 0.4 % Normal 0.0-0.5 [facility] Comment on above: Performed By: #### C BC #### [facility] [address] [place] [address] Dr. Radha Land LYMPH # 1.4 103/ul Normal 1.2-3.8 [facility] Comment on above: Performed By: #### C BC #### [facility] [address] [place] [address] Dr. Radha Land Lymphocytes/100 WBC (Bld) 10.8 % Critically low 20.5-60.0 [facility] Comment on above: Performed By: #### C BC #### [facility] [address] [place] [address] Dr. Radha Land MANUAL DIFF REQ NO Normal [facility] Comment on above: Performed By: #### C BC #### [facility] [address] [place] [address] Dr. Radha Land MCH (RBC) [Entitic mass] 31.5 pg Normal 26.7-34.0 [facility] Comment on above: Performed By: #### C BC #### [facility] [address] [place] [address] Dr. Radha Land MCHC (RBC) [Mass/Vol] 32.0 g/dL Normal 29.9-35.2 [facility] Comment on above: Performed By: #### C BC #### [facility] [address] [place] [address] Dr. Radha Land MCV (RBC) [Entitic vol] 98.3 fL Normal 81.0-99.0 [facility] Comment on above: Performed By: #### C BC #### [facility] [address] [place] [address] Dr. Radha Land MONO # 1.3 103/ul Critically high 0.3-0.8 [facility] Comment on above: Performed By: #### C BC #### [facility] [address] [place] [address] Dr. Radha Ladn Monocytes/100 WBC (Bld) 9.7 % Normal 1.7-12.0 [facility] Comment on above: Performed By: #### C BC #### [facility] [address] [place] [address] Dr. Radha Land NEUT # 10.2 103/ul Critically high 1.4-6.5 [facility] Comment on above: Performed By: #### C BC #### [facility] [address] [place] [address] Dr. Radha Land Neutrophils/100 WBC (Bld) 77.2 % Critically high 43.0-75.0 [facility] Comment on above: Performed By: #### C BC #### [facility] [address] [place] [address] Dr. Radha Land Platelet mean volume (Bld) [Entitic vol] 9.7 fL Normal 9.5-13.5 [facility] Comment on above: Performed By: #### C BC #### [facility] [address] [place] [address] Dr. Radha Land PLT 235 103/ul Normal 150-450 [facility] Comment on above: Performed By: #### C BC #### [facility] [address] [place] [address] Dr. Radha Land RBC 4.16 106/ul Critically low 4.20-5.40 [facility] Comment on above: Performed By: #### C BC #### [facility] [address] [place] [address] Dr. Radha Land WBC 13.2 103/ul Critically high 4.0-11.0 [facility] Comment on above: Performed By: #### C BC #### [facility] [address] [address] [address] Radha Land SED RATE WESTERGRENon 2021 SED RATE 35 mm/hr Critically high <=30 [facility] Comment on above: Performed By: #### S EDR #### [facility] [address] [address] [address] Radha Land CBC AUTO DIFFon 11-07-2021 BASO # 0.0 103/ul Normal 0.0-0.1 [facility] Comment on above: Performed By: #### C BC ####[facility] [address] [address]Dr. Radha Land Basophils/100 WBC (Bld) 0.3 % Normal 0.2-2.0 [facility] Comment on above: Performed By: #### C BC ####[facility] [address] [address]Dr. Radha Land EO # 0.2 103/ul Normal 0.0-0.7 [facility] Comment on above: Performed By: #### C BC ####[facility] [address] [address]Dr. Radha Land Eosinophils/100 WBC (Bld) 3.3 % Normal 0.9-7.0 [facility] Comment on above: Performed By: #### C BC ####[facility] [address] [address]DrHernandez Land Erythrocyte distribution width (RBC) [Ratio] 13.2 % Normal 11.0-15.0 [facility] Comment on above: Performed By: #### C BC ####[facility] [address] [address]DrHernandez Land Hematocrit (Bld) [Volume fraction] 41.9 % Normal 36.0-48.0 [facility] Comment on above: Performed By: #### C BC ####[facility] [address] [place], [place] [address]DrHernandez Land Hemoglobin (Bld) [Mass/Vol] 13.4 g/dL Normal 12.0-16.0 [facility] Comment on above: Performed By: #### C BC ####[facility] [address] [address]DrHernandez Land IG # 0.01 10e3/ul Normal 0.00-0.03 [facility] Comment on above: Performed By: #### C BC ####[facility] [address] [address]DrHernandez Land IG % 0.2 % Normal 0.0-0.5 [facility] Comment on above: Performed By: #### C BC ####[facility] [address] [place], [place] [address]DrHernandez Land LYMPH # 1.6 103/ul Normal 1.2-3.8 [facility] Comment on above: Performed By: #### C BC ####[facility] [address] [place] [address]DrHernandez Land Lymphocytes/100 WBC (Bld) 27.5 % Normal 20.5-60.0 [facility] Comment on above: Performed By: #### C BC ####[facility] [address] [place] [address]DrHernandez Land MANUAL DIFF REQ NO Normal [facility] Comment on above: Performed By: #### C BC ####[facility] [address] [address]DrHernandez Land MCH (RBC) [Entitic mass] 31.2 pg Normal 26.7-34.0 [facility] Comment on above: Performed By: #### C BC ####[facility] [address] [place] [id number] Land MCHC (RBC) [Mass/Vol] 32.0 g/dL Normal 29.9-35.2 [facility] Comment on above: Performed By: #### C BC ####[facility] [address] [place] [id number] Land MCV (RBC) [Entitic vol] 97.7 fL Normal 81.0-99.0 [facility] Comment on above: Performed By: #### C BC ####[facility] [address] [address]Dr. Radha Land MONO # 0.7 103/ul Normal 0.3-0.8 [facility] Comment on above: Performed By: #### C BC ####[facility] [address] [place] [id number]. Radha Land Monocytes/100 WBC (Bld) 12.4 % Critically high 1.7-12.0 [facility] Comment on above: Performed By: #### C BC ####[facility] [address] [place] [address]Dr. Radha Land NEUT # 3.2 103/ul Normal 1.4-6.5 [facility] Comment on above: Performed By: #### C BC ####[facility] [address] [place] [address]Dr. Radha Land Neutrophils/100 WBC (Bld) 56.3 % Normal 43.0-75.0 [facility] Comment on above: Performed By: #### C BC ####[facility] [address] [place], [place] [address]Dr. Radha Land Platelet mean volume (Bld) [Entitic vol] 9.4 fL Critically low 9.5-13.5 [facility] Comment on above: Performed By: #### C BC ####[facility] [address] [place], [place] [id number]. Radha Land PLT 226 103/ul Normal 150-450 [facility] Comment on above: Performed By: #### C BC ####[facility] [address] [place] [id number]. Radha Land RBC 4.29 106/ul Normal 4.20-5.40 [facility] Comment on above: Performed By: #### C BC ####[facility] [address] [place] [id number]. Radha Land WBC 5.7 103/ul Normal 4.0-11.0 [facility] Comment on above: Performed By: #### C BC ####[facility] [address] [place], [place] [address]UvDr. Radha Land LIPID PROFILEon 11-07-2021 CHOL-HDL RATIO NORM SEE BELOW Normal [facility] Comment on above: Result Comment: 3.3 - 4.4 LOW RISK 4.4 - 7.1 AVERAGE RISK 7.1 - 11.0 MODERATE RISK >11.0 HIGH RISK Performed By: #### L IPID, CMP #### [facility] [address] [place], [place] [address] Dr. Radha Land Cholesterol [Mass/Vol] 257 mg/dL Critically high <=200 [facility] Comment on above: Performed By: #### L IPID, CMP #### [facility] [address] [place], [place] [address] Dr. Radha Land Cholesterol in HDL [Mass/Vol] 76 mg/dL Critically high 40-60 [facility] Comment on above: Performed By: #### L IPID, CMP #### [facility] [address] [place], [place] [address] Dr. Radha Land Cholesterol in LDL [Mass/Vol] 163.8 mg/dL Normal [facility] Comment on above: Performed By: #### L IPID, CMP #### [facility] [address] [place], [place] [address] Dr. Radha Land Cholesterol.total/C holesterol in HDL [Mass ratio] 3.4 {ratio} Normal [facility] Comment on above: Performed By: #### L IPID, CMP #### [facility] [address] [place], [place] [address] Dr. Radha Land HDL NORMAL > or = 60 mg/dl - LO W CARDIOVASCULAR RISK <40 mg/dl - HIGH CARDIOVASCULAR RISK Normal [facility] Comment on above: Performed By: #### L IPID, CMP #### [facility] [address] [place], [place] [address] Dr. Radha Land LDL CALC NORMAL SEE BELOW Normal [facility] Comment on above: Result Comment: <100 mg/dl OPTIMAL 100 - 129 mg/dl NEAR OR ABOVE OPTIMAL 130 - 159 mg/dl BORDERLINE HIGH 160 - 189 mg/dl HIGH >190 mg/dl VERY HIGH Performed By: #### L IPID, CMP #### [facility] [address] [address] [address] Radha Land Triglyceride [Mass/Vol] 86 mg/dL Normal <=150 [facility] Comment on above: Performed By: #### L IPID, CMP #### [facility] [address] [address] [address] Radha Land VLDL CALC 17.2 mg/dL Normal [facility] Comment on above: Performed By: #### L IPID, CMP #### [facility] [address] [address] [address] Radha Land MG MAMM SCREEN 3D GIANCARLO CADon 11-07-2021 MG MAMM SCREEN 3D GIANCARLO CAD Patient: EDUARDO FRANCO Exam Date: 11/07/2021 : 1940 Gender:F Ordering : DR SAVANNA GUAJARDO M.D. Admission #: [id number] Family : Order #: [id number] CLICK HERE TO VIEW EXAM RADIOLOGY REPORT PROCEDURE: MAMMOGRAM SCREENING 3D BILATERAL CAD COMPARISON: MG MAMM SCREEN GIANCARLO W CAD, 11/04/2019. MG MAMM SCREEN 3D GIANCARLO CAD, 11/06/2020. INDICATIONS: Screening mammography Calculator Name NCI Breast Cancer Risk Assessment Tool 5 Year Breast Cancer Risk 1.20% Lifetime Breast Cancer Risk 1.70% Personal Breast Cancer No Personal Ovarian Cancer No Treatments None Family Cancers Mother with ovarian cancer at age 48. LOCATION: [facility] BREAST COMPOSITION: Extremely dense, which lowers the sensitivity of mammography. FINDINGS: DIAGNOSTIC CATEGORY 2--BENIGN FINDING. NO CHANGE FROM COMPARISON. Scattered benign-appearing calcifications are present. Scattered benign-appearing lymph nodes are present. RIGHT BREAST: No significant suspicious finding. LEFT BREAST: No significant suspicious finding. RECOMMENDATIONS: ROUTINE MAMMOGRAM AND CLINICAL EVALUATION IN 12 MONTHS. PLEASE NOTE: A NORMAL MAMMOGRAM DOES NOT EXCLUDE THE POSSIBILITY OF BREAST CANCER. A CLINICALLY SUSPICIOUS PALPABLE LUMP SHOULD BE BIOPSIED. Dictated by: Mine Arriaga MD on 11/07/2021 at 11:17 Approved by: Mine Arriaga MD on 11/07/2021 at 11:21 Normal [facility] PROF 14(COMP METB)on 022 Albumin [Mass/Vol] 3.6 g/dL Normal 3.4-5.0 [facility] Comment on above: Performed By: #### L IPID, CMP #### [facility] [address] [address] [address] Radha Land Albumin/Globulin [Mass ratio] 0.9 {ratio} Normal [facility] Comment on above: Performed By: #### L IPID, CMP #### [facility] [address] [address] [address] Radha Land ALP [Catalytic activity/Vol] 79 U/L Normal 46-116 [facility] Comment on above: Performed By: #### L IPID, CMP #### [facility] [address] [address] [address] Radha Land ALT [Catalytic activity/Vol] 32 U/L Normal 14-59 [facility] Comment on above: Performed By: #### L IPID, CMP #### [facility] [address] [address] [address] Radha Land Anion gap [Moles/Vol] 6.1 mmol/L Normal [facility] Comment on above: Performed By: #### L IPID, CMP #### [facility] [address] [address] [address] Radha Land AST [Catalytic activity/Vol] 28 U/L Normal 15-37 [facility] Comment on above: Performed By: #### L IPID, CMP #### [facility] [address] [address] [address] Radha Land Bilirubin [Mass/Vol] 0.6 mg/dL Normal 0.2-1.0 [facility] Comment on above: Performed By: #### L IPID, CMP #### [facility] [address] [address] [address] Radha Land Calcium [Mass/Vol] 9.1 mg/dL Normal 8.5-10.[address] [facility] Comment on above: Performed By: #### L IPID, CMP #### [facility] [address] [address] [address] Radha Land Chloride [Moles/Vol] 104 mmol/L Normal 98-107 [facility] Comment on above: Performed By: #### L IPID, CMP #### [facility] [address] [place] [address] Dr. Radha Land CO2 [Moles/Vol] 31.0 mmol/L Normal 21.0-32.0 [facility] Comment on above: Performed By: #### L IPID, CMP #### [facility] [address] [place] [address] Dr. Radha Land Creatinine [Mass/Vol] 0.86 mg/dL Normal 0.55-1.02 [facility] Comment on above: Performed By: #### L IPID, CMP #### [facility] [address] [place] [address] Dr. Radha Land EGFR-AF FAROESE >60 Normal >=60 [facility] Comment on above: Performed By: #### L IPID, CMP #### [facility] [address] [place] [address] Dr. Radha Land EGFR-NON AF FAROESE >60 Normal >=60 [facility] Comment on above: Performed By: #### L IPID, CMP #### [facility] [address] [place] [address] Dr. Radha Land Globulin (S) [Mass/Vol] 4.1 g/dL Normal [facility] Comment on above: Performed By: #### L IPID, CMP #### [facility] [address] [place] [address] Dr. Radha Land Glucose [Mass/Vol] 89 mg/dL Normal 74-106 [facility] Comment on above: Performed By: #### L IPID, CMP #### [facility] [address] [place] [address] Dr. Radha Land Potassium [Moles/Vol] 4.1 mmol/L Normal 3.5-5.1 [facility] Comment on above: Performed By: #### L IPID, CMP #### [facility] [address] [address] [address] Radha Land Protein [Mass/Vol] 7.7 g/dL Normal 6.4-8.2 [facility] Comment on above: Performed By: #### L IPID, CMP #### [facility] [address] [address] [address] Radha Land Sodium [Moles/Vol] 137 mmol/L Normal 136-145 [facility] Comment on above: Performed By: #### L IPID, CMP #### [facility] [address] [address] [address] Radha Land Urea nitrogen [Mass/Vol] 12.0 mg/dL Normal 7.0-18.0 [facility] Comment on above: Performed By: #### L IPID, CMP #### [facility] [address] [address] [address] Radha Land Urea nitrogen/Creatinine [Mass ratio] 14.0 mg/mg Normal [facility] Comment on above: Performed By: #### L IPID, CMP #### [facility] [address] [address] [address] Radha Land Vital Signs Date Time Vital Sign Value Performing Clinician Facility 01-10-2023 09:45-0400 Body height 165.1 cm Savanna Guajardo Other [facility] Other 01-10-2023 09:45-0400 Body mass index (BMI) [Ratio] 20.87 kg/m2 Savanna Guajardo Other [facility] Other 01-10-2023 09:45-0400 Body weight 56.88 kg Savanna Guajardo Other [facility] Other 01-10-2023 09:45-0400 Diastolic blood pressure 78 mm[Hg] Savanna Guajardo Other [facility] Other 01-10-2023 09:45-0400 Systolic blood pressure 142 mm[Hg] Savanna Guajardo Other [facility] Other 10-28-2022 08:30-0400 Body height 165.1 cm Savanna Guajardo Other [facility] Other 10-28-2022 08:30-0400 Body mass index (BMI) [Ratio] 20.47 kg/m2 Savanna Guajardo Other [facility] Other 10-28-2022 08:30-0400 Body weight 55.79 kg Savanna Guajardo Other [facility] Other 10-28-2022 08:30-0400 Diastolic blood pressure 47 mm[Hg] Savanna Guajardo Other [facility] Other 10-28-2022 08:30-0400 Systolic blood pressure 124 mm[Hg] Savanna Guajardo Other [facility] Other Encounters Encounter Date Encounter Type Care Provider Facility Start: 08-26-2023 End: 08-26-2023 ambulatory [facility] Work Phone: Start: 08-26-2023 End: 08-26-2023 Patient encounter procedure [facility] Work Phone: Start: 03-28-2023 End: 03-28-2023 ambulatory Savanna Guajardo Other [facility] Other Start: 03-28-2023 Telephone encounter Savanna Guajardo [facility] Start: 01-31-2023 End: 01-31-2023 ambulatory Savanna Guajardo Other [facility] Other Start: 01-31-2023 Nursing evaluation o f patient and report Savanna Guajardo [facility] Start: 01-14-2023 End: 01-14-2023 ambulatory Savanna Guajardo Other [facility] Other Start: 01-14-2023 Telephone encounter Savanna Guajardo [facility] Start: 01-10-2023 End: 01-10-2023 ambulatory Savanna Guajardo Other [facility] Other Start: 01-10-2023 Office outpatient visit 15 minutes Savanna Guajardo [facility] Start: 10-28-2022 End: 10-28-2022 ambulatory Savanna Guajardo Other [facility] Other Start: 10-28-2022 Patient encounter procedure Savanna Guajardo [facility] Start: 10-24-2022 End: 10-24-2022 ambulatory Savanna Guajardo Other [facility] Other Start: 10-24-2022 Telephone encounter Savanna Guajardo [facility] Start: 10-08-2022 End: 10-08-2022 ambulatory AJ ARCEO . Facility:[facility] Start: 10-02-2022 End: 10-03-[address] SAVANNA GUAJARDO Facility:[facility] Start: 09-05-2022 End: 09-06-[address] SAVANNA GUAJARDO Facility:[facility] Start: 09-05-2022 End: 09-06-[address] SAVANNA GUAJARDO Facility:[facility] Start: 05-03-[address] SAVANNA GUAJARDO Facil ity:[facility]1 Start: 03-26-[address] SAVANNA GUAJARDO Facil ity:[facility]1 Start: 01-28-2022 End: 01-29-[address] SAVANNA GUAJARDO Facility:[facility] Start: 01-07-2022 End: 01-08-[address] VALENTINA BECKER . Facility:[facility] Start: 12-31-2021 Adult health examination Savanna Guajardo Other [facility] Other Start: 12-31-2021 End: 01-01-[address] SAVANNA GUAJARDO Facility:[facility] Start: 12-25-2021 End: 12-26-[address] VALENTINA BECKER . Facility:[facility] Start: 12-19-2021 End: 12-20-[address] VALENTINA BECKER . Facility:[facility] Start: 11-07-2021 End: 11-08-[address] SAVANNA GUAJARDO Facility:[facility] Procedures Date Procedure Procedure Detail Performing Clinician Screening for malign ant neoplasm of breast Savanna Guajardo Other Immunizations Immunization Date Immunization Notes Care Provider Fa cili 02-28-2022 influenza virus vaccine, split virus (incl. purified surface antigen) Savanna Guajardo Other [facility] Other 02-28-2022 influenza virus vaccine, unspecified formulation [facility] 02-27-2021 influenza virus vaccine, split virus (incl. purified surface antigen) Savanna Guajardo Other [facility] Other 02-27-2021 influenza virus vaccine, unspecified formulation [facility] 02-16-2020 influenza virus vaccine, split virus (incl. purified surface antigen) Savanna Guajardo Other [facility] Other 02-16-2020 influenza virus vaccine, unspecified formulation [facility] 10-25-2019 pneumococcal polysaccharide vaccine, 23 valent Savanna Guajardo Other [facility] 03-10-2018 pneumococcal conjuga te vaccine, 13 valent Savanna Guajardo Other [facility] 01-08-2017 influenza virus vaccine, split virus (incl. purified surface antigen) Savanna Guajardo Other [facility] Other 01-08-2017 influenza virus vaccine, unspecified formulation [facility] 02-06-2016 influenza virus vaccine, split virus (incl. purified surface antigen) Savanna Guajardo Other [facility] Other 02-06-2016 influenza virus vaccine, unspecified formulation [facility] 03-24-2015 influenza virus vaccine, split virus (incl. purified surface antigen) Savanna Guajardo Other [facility] Other 03-24-2015 influenza virus vaccine, unspecified formulation [facility] 02-26-2013 tetanus and diphther ia toxoids, adsorbed, preservative free, for adult use (5 Lf of tetanus toxoid and 2 Lf of diphtheria toxoid) Savanna Guajardo Other [facility] Payers Date Payer Category Payer Medicare [id number] 1940 Unknown [id number] 2.16.84 [id number] 1940 Unknown [id number] 2.16.84 [id number] 1940 Unknown [id number] 2.16.84 [id number] 1940 Unknown [id number] 2.16.84 [id number] 1940 Unknown [id number] 2.16.84 [id number] 1940 Unknown [id number] 2.16.84 [id number] 1940 Unknown [id number] 2.16.84 [id number] 1940 Unknown [id number] 2.16.84 [id number] 1940 Unknown [id number] 2.16.84 [id number] 1940 Unknown [id number] 2.16.84 [id number] 1940 Unknown [id number] 2.16.84 [id number] 1940 Unknown [id number] 2.16.84 [id number] Private Health Insurance [id number] Social History Date Type Detail Facility Unknown if ever smoked [facility] Other Sex Assigned At Sex Assigned At Bir th [facility] Other Start: 1940 Sex Assigned At Female F [facility] Evaluation note 01-31-2023 Note Date & Type Note Facility 01-31-2023 Evaluation note Encounter Date Diagnosis Assessment Notes Jan, Seasonal allergic rhinitis, unspecified trigger (ICD-10 - J30.2) [facility] Other Evaluation note 01-10-2023 Note Date & Type Note Facility 01-10-2023 Evaluation note Encounter Date Diagnosis Assessment Notes Jan, Piriformis syndrome of left side (ICD-10 - G57.02) Unable to add more tramadol - likely has pain clinic w [facility]. PT order printed. Add steroids. Also gave copies of home exercises. [facility] Other Evaluation note 10-28-2022 Note Date & Type Note Facility 10-28-2022 Evaluation note Encounter Date Diagnosis Assessment Notes Oct, Medicare annual wellness visit, subsequent (ICD-10 - Z00.00) Personalized health advice was given to the beneficiary including a written plan for screenings discussed and provided. Advanced care planning reviewed and/or information given as requested. Additional counseling was provided here today in regards to, [ ]. The above visit was performed by [ ], under direct supervision of [ ]. Document reviewed and amended by provider signed below. Oct, Screening mammogram, encounter for (ICD-10 - Z12.31) Order handwritten and given to pt. Oct, Essential (primary) hypertension (ICD-10 - I10) Continue present meds. Due for labs. - order handwritten and given to pt [facility] Other Consultation note 09-05-2022 Note Date & Type Note Facility 09-05-2022 Note CONSULTATION CONSULTATION DATE: 09/05/2022 TO: Savanna Guajardo M.D. HISTORY: Patient is seen today, complaining of pain in her left upper neck and shoulder area. She reports the pain as being sharp in character, increased with activities such as lifting maneuvers, pushing/pulling maneuvers and cervical extension. She feels most comfortable in the semi-recumbent position. She denies any change in bowel and bladder habits or new sensorimotor changes in the upper extremities. EXAM: Notable for patient having no clinical radiculopathy or myelopathy involving her upper extremities. Patient did have severe pain with cervical facet loading maneuvers. It appeared to be most severe at the C4-5 level on the left side, and possibly C3-4 level on the left side as well, with associated myofascial spasm of the cervical paravertebral muscles. Patient also had a positive left sided Apley's sign, as well as a positive left sided full can test with associated pain with left shoulder abduction as well. IMPRESSION: Our impression is patient appears to have chronic pain secondary to cervical spondylosis, myofascial spasm of the cervical paravertebral muscles. Patient also appears to have left sided rotator cuff tear or strain. RECOMMENDATIONS: Will obtain cervical spine films with PA and lateral views, place a skin marker over the most painful area. It appears to be at approximately the C4-5 level. At this point, I have recommended proceeding with again, a diagnostic left sided C4-5, C3-4 level fact joint injection. I have placed her baclofen 10 mg pills, one-quarter pill b.i.d., half to one at bedtime and we will address her left rotator cuff matter at her next visit. She may be an appropriate candidate for a rhizotomy using radiofrequency ablation to the left suprascapular nerve. This was discussed briefly with the patient. We will evaluate this after we check her response to a diagnostic facet joint injection on the left side at C3-4, C4-5. As part of providing excellent, safe, comprehensive care, the following was completed at our patient's visit: 1. A medication reconciliation and review to ensure accurate knowledge of current/active medications, including asking our patients to inform us about any [id number] medications or herbal remedies/nutritional supplements/alternative remedies. 2. A review to specifically ensure our patients have had annual screening for: elevated body mass index (BMI, see intake chart for exact total), tobacco use, screening for depression, and screening for unhealthy alcohol use. When screening is concerning, patients are provided with education and the specific recommendation to discuss the concerning health issue and treatment options with their primary care provider. [facility] Consultation note 12-25-2021 Note Date & Type Note Facility 12-25-2021 Note CONSULTATION PROCEDURE DATE: 12/25/2021 PREOPERATIVE DIAGNOSIS: Left shoulder pain, osteoarthritis of the left shoulder. POSTOPERATIVE DIAGNOSIS: Left shoulder pain, osteoarthritis of the left shoulder. PROCEDURE: Left shoulder injection. Subsequent to obtaining informed consent, the patient placed in the sitting position. Alcohol prep was used to sterilize the site. A 25 gauge needle was advanced and it comes to rest in the left shoulder joint. Negative aspiration. Marcaine 0.125% along with Kenalog 40 mg are injected to the site. Negative heme. The patient tolerates the procedure well without any overt complication. Post procedurally range of motion exercises are performed. [facility] Consultation note 12-19-2021 Note Date & Type Note Facility 12-19-2021 Note CONSULTATION CONSULTATION DATE: 12/19/2021 This is a very pleasant, active and vibrant 81-year-old female returning to the clinic for a 3-month follow-up for her left arm, shoulder and neck pain. She was last seen on 09/13/2021 when at that time we changed her Tylenol 3 to Tramadol 50 mg b.i.d. which has been proven to be helpful. An ortho consult was sent to Dr. conde where she was office where she was seen by the physician bar assistant in the office and received left glenohumeral shoulder injections with Kenalog which proved to be very helpful. The patient states he has a 5-day bus trip coming up on January 01 and is hoping we can accomplish a repeat left shoulder injection prior to that trip. Activities such as twisting, pulling, turning, lifting and housework aggravate her pain. The use of heat is beneficial. She is on a vitamin regimen and is compliant with her exercises. REVIEW OF SYSTEMS, PAST MEDICAL HISTORY, ALLERGIES AND IMAGES: Have been reviewed and noted in the chart. PHYSICAL EXAM: VITAL SIGNS: Blood pressure 118/65, heart rate is 60, temperature is 97.7. Height is 65 , weighs 64 kg. . GENERAL APPEARANCE: Pleasant and appropriate, in no acute distress. FOCUSED EXAM: NECK: Range of motion is functional, lateral rotation and flexion/extension. No spinoaxial pain to compression of the cervical facets. Muscles are non-spasmodic to the trapezius, splenius capitis muscles. MUSCULOSKELETAL: Bilateral motor is 4 out of 5 bilaterally; slight weakness to the left upper extremity. Gross and fine motor movement is intact. Left shoulder with tenderness along the AC and glenohumeral joint to palpation. The patient has intact range of motion in adduction and abduction as well as lateral raises. NEUROLOGICAL: Negative polyneuropathy, brachioradialis is +2 bilaterally. DIAGNOSIS: Left shoulder osteoarthritis, cervicalgia. PLAN: Refill for her Tramadol 50 mg b.i.d. will be sent to the pharmacy. We were authorized to do a left shoulder steroid injection in hopes that we can accomplish this for her prior her bus trip. She will be contacted once we receive authorization. In the meantime, she is to use a menthol heat rub and continue with her heat on her shoulder daily. Compliance with her vitamin and exercise was encouraged. The patient agreed with the plan of care, to be contacted LARISA. [facility] Evaluation note Note Date & Type Note Facility Evaluation note No Information [facility] Other Evaluation note Note Date & Type Note Facility Evaluation note No assessment information [facility] Work Phone: History general Narrative - Reported Note Date & Type Note Facility History general Narrative - Reported Type Medical History migraine headache Medical History dizziness Medical History tremors Surgical History hysterectomy Surgical History bunionectomy Surgical History stapedectomy Hospitalization History see above [facility] Other Summary Purpose Family History Relationship Condition Age at Onset Recorded Date/T julia father Unknown family member Unknown Not Specified Unknown Advance Directives Advance Directive Response Recorded Date/ Time Advance Directives No August 25, 024 10:55am Chief Complaint and Reason for Visit Chief Complaint allergy shot Additional Source Comments INFORMATION SOURCE (unrecogn ized section and content) DATE CREATED AUTHOR 10/18/2022 [facility] REASON FOR VISIT (unrecogniz ed section and content) RefillWellnessHip Painlumbar xrayAllergy ShotAllergy Shotrefill Care Teams (unrecognized sec tion and content) Team Status: Active Member Role Status Dates Savanna Guajardo MD Primary Care Provider Active Team Status: Inactive Member Role Status Dates Savanna Guajardo MD Primary Care Provide r, Attending Provider Active Start: August 26, 2023 End: August 26, 2023 Goals (unrecognized section and content) Goals may be documented in a n alternate section FOR RECORDS PERTAINING TO PATIENTS WHO ARE OR HAVE BEEN ENROLLED IN A CHEMICAL DEPENDENCY/SUBSTANCEABUSE PROGRAM, SOME INFORMATION MAY BE OMITTED. This clinical summary was aggregated from multiple sources. Caution should be exercised in using it in the provision of clinical care. This summary normalizes information from multiple sources, and as a consequence, information in this document may materially change the coding, format and clinical context of patient data. In addition, data may be omitted in some cases. CLINICAL DECISIONS SHOULD BE BASED ON THE PRIMARY CLINICAL RECORDS. [facility] [employer] [facility]. provides no warranty or guarantee of the accuracy or completeness of information in this document.
[2023-09-09 18:33] VITALS: TEMP 37.1
[2023-09-09 18:37] VITALS: O2SAT 98
--- NOTE | 2023-09-09 18:39 | CT_ITS ---
[facility] [address] [id number] Patient Name: EDUARDO LEA MRN: [id number] date: 1940 Sex: F Assigned Patient Location: ER Current Patient Location: ER Accession/Order Number: [id number] Exam Date: 09/09/2023 19:10 Report Date: 09/09/2023 20:13 At the request of: MILA MONCADA Procedure: CT abdomen pelvis wo con EXAM: CT abdomen pelvis wo con , 09/09/2023 HISTORY: Left abd/flank pain COMPARISON: None. TECHNIQUE: Noncontrast CT scan of the abdomen and pelvis was performed. Coronal and sagittal reconstructions were performed. Dose reduction techniques were achieved by using automated exposure control and/or adjustment of mA and/or kV according to patient size and/or use of iterative reconstruction technique. FINDINGS: Moderate left-sided hydronephrosis and hydroureter due to an obstructing 4 mm calculus in the mid left ureter. The right kidney and ureter demonstrate no stone or dilatation. The urinary bladder is nondistended and shows no calculus. The liver demonstrate no obvious mass lesion. A few punctate benign calcifications in the liver. The spleen, pancreas and both adrenal glands are unremarkable. Cholelithiasis. No biliary dilatation. Mild atherosclerotic calcification of the abdominal aorta. Unremarkable IVC. Small umbilical hernia containing fatty tissue. Sigmoid and left colonic diverticulosis without diverticulitis. Moderate stool throughout the colon. No bowel loop dilatation. No free fluid in the peritoneal cavity. Status post hysterectomy. The bone windows demonstrate moderate degenerative changes at L5-S1 level. Mild osteopenia and levoscoliosis. Scans through the lung bases show minimal basal atelectasis. CT/CT abdomen pelvis wo con IMPRESSION: 1. Moderate left-sided hydronephrosis and hydroureter due to an obstructing 4 mm calculus in the mid left ureter. 2. Cholelithiasis. 3. Sigmoid and left colonic diverticulosis without diverticulitis. Electronically authenticated by: VIKKI CORREA Date: 09/09/2023 20:13
--- NOTE | 2023-09-09 18:40 | ED.ABDPAIN1 ---
HPI - Abdominal Pain General Chief Complaint: Abdominal Pain Stated Complaint: Flank Pain Time Seen by Provider: 09/09/23 18:39 Source: patient Mode of arrival: ambulance History of Present Illness HPI narrative: 83 year old female presents to the ED for intermittent left abd/flank pain. Onset was this afternoon after planting [place]. Reports intermittent, sharp pain. She has nausea when the pain occurs. Denies fever, chills, injury. Denies urinary sx, diarrhea. Related Data Home Medications ?Medication ?Instructions ?Recorded ?Confirmed calcium-vitamin D3-vitamin K 500 1 tab PO DAILY 11/06/22 09/09/23 mg-100 unit-40 mcg chewable tablet diclofenac sodium 50 mg 50 mg PO BID 11/06/22 09/09/23 tablet,delayed release glucosamine-chondroitin 250 mg-200 2 tab PO DAILY 11/06/22 09/09/23 mg tablet (Osteo Bi-Flex) lactobacillus combo no.13 1 1 cap PO DAILY 11/06/22 09/09/23 billion cell capsule,delayed release (Probiotic Pearls Complete) magnesium 200 mg tablet 400 mg PO DAILY 11/06/22 09/09/23 meclizine 25 mg chewable tablet 25 mg PO DAILY 11/06/22 09/09/23 (Antivert) metoprolol tartrate 50 mg tablet 50 mg PO DAILY 11/06/22 09/09/23 multivitamin (Daily Multi-Vitamin 1 tab PO DAILY 11/06/22 09/09/23 tablet) omega 3-xnk-wfw-fish oil 1,200 mg 1 cap PO DAILY 11/06/22 09/09/23 (144 mg-216 mg) capsule (Fish Oil) prasterone (dhea) 50 mg capsule 50 mg PO DAILY 11/06/22 02/25/23 (DHEA) vitamin B complex (B 1 tab PO DAILY 11/06/22 09/09/23 Complex-Vitamin B12 tablet) zolmitriptan 5 mg tablet (Zomig) See Rx Instructions PO .COMPLEX 11/06/22 09/09/23 atenolol 50 mg tablet 50 mg PO DAILY 09/09/23 09/09/23 naloxone 4 mg/actuation nasal spray 1 spray intranasal Q3M PRN opioid 09/09/23 09/09/23 overdose Previous Rx's ?Medication ?Instructions ?Recorded tramadol 50 mg tablet 50 mg PO BID PRN pain #60 tabs 03/27/23 cephalexin 500 mg capsule 500 mg PO BID 7 days #14 caps 09/09/23 hydrocodone 5 mg-acetaminophen 325 1 tab PO Q8H PRN pain 3 days #10 09/09/23 mg tablet tabs hydrocodone 5 mg-acetaminophen 325 1 tab PO Q8H PRN pain 3 days #10 09/09/23 mg tablet tabs ondansetron 4 mg disintegrating 4 mg PO Q8H PRN nausea and 09/09/23 tablet vomiting 4 days #12 tabs tamsulosin 0.4 mg capsule (Flomax) 0.4 mg PO DAILY #7 caps 09/09/23 Allergies Allergy/AdvReac Type Severity Reaction Status Date / Time No Known Drug Allergies Allergy Verified 02/25/23 08:49 Review of Systems ROS Constitutional Denies: fever or chills Ears, nose, mouth, and throat Denies: neck pain Cardiovascular Denies: shortness of breath when lying down Respiratory Denies: shortness of breath or cough Gastrointestinal Reports: abdominal pain and nausea; Denies: vomiting or diarrhea Genitourinary Denies: painful urination, urinary frequency, urinary urgency, urinary incontinence or blood in urine Musculoskeletal Reports: back pain; Denies: neck pain Integumentary/Breast Denies: rash, itching or redness Neurological Denies: headache or dizziness [facility] Medical History (Updated 09/09/23 @ 20:25 by Kayla Mendoza) Osteoarthritis ?M19.90 - Unspecified osteoarthritis, unspecified site (ICD-10) Hearing deficit ?H91.90 - Unspecified hearing loss, unspecified ear (ICD-10) Surgical History History of bunionectomy of left great toe ?Z98.890 - Other specified postprocedural states (ICD-10) History of cervical discectomy ?Z98.890 - Other specified postprocedural states (ICD-10) History of hysterectomy ?Z90.710 - Acquired absence of both cervix and uterus (ICD-10) History of stapedectomy ?Z90.09 - Acquired absence of other part of head and neck (ICD-10) Exam Constitutional Vital Signs, click to edit/add: Last Vital Signs Temp 98.7 F 09/09/23 18:33 Pulse 60 09/09/23 19:42 Resp 16 09/09/23 19:42 BP 117/54 09/09/23 19:42 Pulse Ox 97 09/09/23 19:42 O2 Del Method Room Air 09/09/23 18:37 Common normals: no apparent distress and oriented x3 General appearance: cooperative Eye Common normals: conjunctivae normal and no scleral icterus Neck & C-Spine Common normals: supple Chest Chest: symmetrical chest wall rise Respiratory Common normals: normal respiratory effort and no use of accessory muscles Effort & inspection: able to speak in complete sentences Cardio Common normals: regular rate and regular rhythm GI Common normals: Normal to inspection, nondistended, normoactive bowel sounds present, soft to palpation and non-tender Common normals: no CVA tenderness Neuro Common normals: oriented x3 Sensorium/orientation: awake and alert Course Vital Signs Vital signs: Vital Signs Pulse Rate 87 09/09/23 18:20 Respiratory Rate 16 09/09/23 18:20 Blood Pressure 149/89 H 09/09/23 18:20 Pulse Oximetry 98 09/09/23 18:20 Oxygen Delivery Method Room Air 09/09/23 18:20 Temperature 98.7 F 09/09/23 18:33 Pulse Rate 60 09/09/23 19:42 Respiratory Rate 16 09/09/23 19:42 Blood Pressure 117/54 09/09/23 19:42 Pulse Oximetry 97 09/09/23 19:42 Oxygen Delivery Method Room Air 09/09/23 18:37 MDM - Abdominal Pain MDM Narrative Medical decision making narrative: WBC count was unremarkable. Urinalysis was positive for blood. CT scan showed moderate left-sided hydronephrosis and hydroureter due to an obstructing 4 mm calculus in the mid left ureter. The patient declined medication for her discomfort here. Findings were discussed with the patient. Prescriptions were provided for Zofran, Keflex, [place], and Flomax. Follow up with urology for a recheck, further evaluation and treatment. Return precautions were discussed. Differential Diagnosis Differential diagnosis: Likely abdominal pain, calculus of kidney, diverticulitis, gastroenteritis and small bowel obstruction Medical Records Attestation: I reviewed the patient's medical records. Lab Data Attestation: I reviewed the patient's lab results. Labs: Lab Results 09/09/23 09/09/23 Range/Units 18:27 18:53 WBC 10.7 (4.0-11.0) 10^3/uL RBC 4.04 L (4.20-5.40) 10^6/uL Hgb 12.6 (12.0-16.0) g/dL Hct 39.0 (36.0-48.0) % MCV 96.5 (81.0-99.0) fL MCH 31.2 (26.7-34.0) pg MCHC 32.3 (29.9-35.2) g/dL RDW 13.0 (11.0-15.0) % Plt Count 240 (150-450) 10^3/uL MPV 9.5 (9.5-13.5) fL Neut % (Auto) 75.0 (43.0-75.0) % Lymph % (Auto) 13.7 L (20.5-60.0) % [place] % (Auto) 9.5 (1.7-12.0) % Eos % (Auto) 1.1 (0.9-7.0) % Baso % (Auto) 0.4 (0.2-2.0) % Neut # (Auto) 8.0 H (1.4-6.5) 10^3/uL Lymph # (Auto) 1.5 (1.2-3.8) 10^3/uL [place] # (Auto) 1.0 H (0.3-0.8) 10^3/uL Eos # (Auto) 0.1 (0.0-0.7) 10^3/uL Baso # (Auto) 0.0 (0.0-0.1) 10^3/uL Abs Immat Gran (auto) 0.03 (0.00-0.03) 10^3/uL Imm/Tot Granulo (auto) 0.3 (0.0-0.5) % Sodium 140 (136-145) mmol/L Potassium 3.9 (3.5-5.1) mmol/L Chloride 102 (98-107) mmol/L Carbon Dioxide 31.2 (21.0-32.0) mmol/L Anion Gap 10.7 BUN 22.0 H (7.0-18.0) mg/dL Creatinine 1.01 (0.55-1.02) mg/dL Est GFR ( Amer) >60 (>=60) Est GFR (Non-Af Amer) 52 L (>=60) BUN/Creatinine Ratio 21.8 Glucose 100 (74-106) mg/dL Calcium 9.8 (8.5-10.1) mg/dL Total Bilirubin 0.5 (0.2-1.0) mg/dL AST 24 (15-37) U/L ALT 30 (14-59) U/L Alkaline Phosphatase 74 (46-116) U/L Total Protein 7.1 (6.4-8.2) g/dL Albumin 3.6 (3.4-5.0) g/dL Globulin 3.5 g/dL Albumin/Globulin Ratio 1.0 Lipase 25.0 (16.0-77.0) U/L Urine Color Dk. yellow (YELLOW) Urine Clarity Clear (CLEAR) Urine pH 6.0 (5.0-9.0) Ur Specific [place] 1.020 (1.005-1.025) Urine Protein Negative (NEG/TRACE) mg/dL Urine Glucose (UA) Negative (NEGATIVE) mg/dL Urine Ketones Negative (NEGATIVE) mg/dL Urine Occult Blood Large A (NEGATIVE) Urine Nitrite Negative (NEGATIVE) Urine Bilirubin Negative (NEGATIVE) Urine Urobilinogen 0.2 (0.2-1.0) EU/dL Ur Leukocyte Esterase Trace A (NEGATIVE) Urine RBC 10-20 A (0-2) #/HPF Urine WBC 2-5 A (NONE SEEN) #/HPF Ur Squamous Epith Cells None seen (NONE/RARE) #/LPF Urine Crystals Seen A (None Seen) #/HPF Uric Acid Crystals Few Amorphous Sediment Rare Urine Bacteria None seen (NONE SEEN) #/HPF Urine Casts None seen (NONE SEEN) #/LPF Urine Mucus None seen (NONE SEEN) Ur Culture Indicated? No Imaging Data CT scan - abdomen: Attestation: I have reviewed the pertinent imaging results. Radiologist's impression: ITS Impressions Abdomen/Pelvis CT 09/09/23 18:39 IMPRESSION: 1. Moderate left-sided hydronephrosis and hydroureter due to an obstructing 4 mm calculus in the mid left ureter. 2. Cholelithiasis. 3. Sigmoid and left colonic diverticulosis without diverticulitis. Electronically authenticated by: VIKKI CORREA Date: 09/09/2023 20:13 Discharge Plan Discharge Stand Alone Forms: Portal Instructions Chief Complaint: Abdominal Pain Clinical Impression: Calculus of kidney Patient Disposition: Home, Self-Care Time of Disposition Decision: 20:25 Condition: Good Mode of Transportation: Private Vehicle Prescriptions / Home Meds: New cephalexin 500 mg capsule 500 mg PO BID 7 Days Qty: 14 0RF ondansetron 4 mg tablet,disintegrating 4 mg PO Q8H PRN (Reason: nausea and vomiting) 4 Days Qty: 12 0RF tamsulosin [Flomax] 0.4 mg capsule 0.4 mg PO DAILY Qty: 7 0RF hydrocodone-acetaminophen 5-325 mg tablet 1 tab PO Q8H PRN (Reason: pain) 3 Days Qty: 10 0RF hydrocodone-acetaminophen 5-325 mg tablet 1 tab PO Q8H PRN (Reason: pain) 3 Days Qty: 10 0RF No Action vitamin B complex [B Complex-Vitamin B12] Tablet 1 tab PO DAILY DHEA 50 mg capsule 50 mg PO DAILY diclofenac sodium 50 mg tablet,delayed release (DR/EC) 50 mg PO BID omega 1-ixl-zji-fish oil [Fish Oil] 1,200 (144-216) mg capsule 1 cap PO DAILY metoprolol tartrate 50 mg tablet 50 mg PO DAILY magnesium 200 mg tablet 400 mg PO DAILY meclizine [Antivert] 25 mg tablet,chewable 25 mg PO DAILY multivitamin [Daily Multi-Vitamin] Tablet 1 tab PO DAILY glucosamine-chondroitin [Osteo Bi-Flex] 250-200 mg tablet 2 tab PO DAILY Rx Instructions: give after food/meal Probiotic Pearls Complete 1 billion cell capsule,delayed release(DR/EC) 1 cap PO DAILY zolmitriptan [Zomig] 5 mg tablet See Rx Instructions .ROUTE .COMPLEX Rx Instructions: take 1 tab at onset of headache; if no relief, may repeat 1 tab after at least 2 hrs; max = 2 tabs/24 hrs calcium-vitamin D3-vitamin K 500-100-40 mg-unit-mcg tablet,chewable 1 tab PO DAILY tramadol 50 mg tablet 50 mg PO BID PRN (Reason: pain) Qty: 60 0RF atenolol 50 mg tablet 50 mg PO DAILY naloxone 4 mg/actuation spray,non-aerosol 1 spray INTRANASAL Q3M PRN (Reason: opioid overdose) Print Language: Bruneian Instructions: Kidney Stones (ED), How to Strain Your Urine (ED) Additional Instructions: Return to the ER if your condition worsens. Referrals: Savanna Guajardo MD [Primary Care Provider] - 1 week Roman Guan MD [Physician] - 1 week Discharge Date/Time: 09/09/23 20:53
[2023-09-09 18:48] LABS: Bilirubin Urine NEGATIVE (NEGATIVE); Blood Urine LARGE (NEGATIVE); Clarity Urine CLEAR (CLEAR); Color Urine DK. YELLOW (YELLOW); Glucose Urine UA NEGATIVE (NEGATIVE); Ketones Urine NEGATIVE (NEGATIVE); Leukocyte Esterase Urine TRACE (NEGATIVE); Nitrite Urine NEGATIVE (NEGATIVE); Protein Urine NEGATIVE (NEG/TRACE); Urobilinogen Urine 0.2 EU/dL (0.2-1.0)
[2023-09-09 18:50] LABS: Urine Microscopic Indicated YES
[2023-09-09 18:55] LABS: Bacteria Urine NONE SEEN #/HPF (NONE SEEN); Crystals Seen? Seen #/HPF (None Seen); Mucus Urine NONE SEEN (NONE SEEN); Squamous Epithelial Cell Urine NONE SEEN #/LPF (NONE/RARE); Uric Acid Crystals Urine FEW
[2023-09-09 18:56] LABS: Amorphous Sediment Urine RARE; Cast Seen? NONE SEEN #/LPF (NONE SEEN); Urine Culture Indicated NO
[2023-09-09] MEDS: 0.9 % SODIUM CHLORIDE 1,000 ML 100 ML IV (19:00)
[2023-09-09 19:05] LABS: Basophils Percent Auto 0.4 % (0.2-2.0); Eosinophils Absolute Auto 0.1 10^3/uL (0.0-0.7); Eosinophils Percent Auto 1.1 % (0.9-7.0); Hemoglobin 12.6 g/dL (12.0-16.0); Immature Granulocytes Abs Auto 0.03 10^3/uL (0.00-0.03); Immature Granulocytes Pct Auto 0.3 % (0.0-0.5); Lymphocytes Absolute Auto 1.5 10^3/uL (1.2-3.8); Lymphocytes Percent Auto 13.7 % (20.5-60.0); Mean Corpuscular HGB Conc 32.3 g/dL (29.9-35.2); Mean Corpuscular Hemoglobin 31.2 pg (26.7-34.0); Mean Corpuscular Volume 96.5 fL (81.0-99.0); Mean Platelet Volume 9.5 fL (9.5-13.5); Monocytes Percent Auto 9.5 % (1.7-12.0); Platelet Count 240 10^3/uL (150-450); Red Blood Count 4.04 10^6/uL (4.20-5.40); White Blood Count 10.7 10^3/uL (4.0-11.0)
[2023-09-09 19:17] LABS: Alanine Aminotransferase 30 U/L (14-59); Albumin Level 3.6 g/dL (3.4-5.0); Alkaline Phosphatase 74 U/L (46-116); Anion Gap 10.7; Aspartate Amino Transferase 24 U/L (15-37); BUN Creatinine Ratio 21.8; Bilirubin Total 0.5 mg/dL (0.2-1.0); Calcium 9.8 mg/dL (8.5-10.1); Carbon Dioxide 31.2 mmol/L (21.0-32.0); Chloride 102 mmol/L (98-107); Estimated GFR (African America >60 (>=60); Estimated GFR (Non-African Ame 52 (>=60); Globulin 3.5 g/dL; Glucose 100 mg/dL (74-106); Potassium 3.9 mmol/L (3.5-5.1); Sodium 140 mmol/L (136-145); Total Protein 7.1 g/dL (6.4-8.2)
[2023-09-09 19:42] VITALS: BP 117/54; PULSE 60; O2SAT 97
== END 2023-09-09 20:53 | disposition home or self-care (01) ==
PROVIDERS: Nurse Practitioner Family; Emergency Provider Emergency Medicine; PCP Family Medicine
DX: N13.2 Hydronephrosis with renal and ureteral calculous obstruction (principal); M19.90 Unspecified osteoarthritis, unspecified site; H91.90 Unspecified hearing loss, unspecified ear; Z98.890 Other specified postprocedural states; Z90.710 Acquired absence of both cervix and uterus; Z79.899 Other long term (current) drug therapy; Z90.09 Acquired absence of other part of head and neck
CPT/HCPCS: 36415; 74176; 80053; 81001; 83690; 85025; 99285

== ENCOUNTER 2023-09-15 12:41 | Outpatient (OUT) | payer MEDICARE, SELFPAY ==
--- OUTSIDE RECORDS SUMMARY | 2023-09-15 12:56 | XMS_ITS | CCD ---
Author Organization [facility] Care Team Providers Care Salesperson Burial Plots Name Role Phone GISELA, DR SAVANNA Willis Primary Care Unavailable ROSITA ., DR VALENTINA Rothman Attending Unavailable BECKER [...] DR VALENTINA Rothman Consulting Unavailable LAKSHMIPATHY ., NARPAULINA Admitting Jessy vailable LAKSHMIPATHY ., NARENDPATEL Consulting Jessy vailable LAKSHMIPATHY ., AJ Attending Jessy vailable GUAJARDO, DR SAVANNA Willis Primary Care Unavailable GISELA, DR SAVANNA Willis Primary Care Unavailable GISELA, DR SAVANNA Willis Attending Unavailable MARBLE, DR MINE Barriga Consulting Unavailable GISELA, DR SAVANNA Willis Admitting Unavailable GUAJARDO, DR SAVANNA Willis Consulting Unavailable GUAJARDO, DR SAVANNA Willis Attending Unavailable GUAJARDO, DR SAVANNA Willis Admitting Unavailable BIRGIT, DR PB Mitchell Consulting Unavailable GISELA, DR SAVANNA Willis Primary Care Unavailable GISELA, DR SAVANNA Willis Consulting Unavailable GISELA, DR SAVANNA Willis Primary Care Unavailable LAKSHMIPATHY ., AJ Attending Jessy vailable LAKSHMIPATHY ., NARENDRANATH Admitting Jessy vailable LAKSHMIPATHY ., NARENDLOWELLATH Consulting Jessy vailable RASTEDIOR ISAEL Consulting Unavailable GISELA, DR SAVANNA Willis Primary Care Unavailable GISELA, DR SAVANNA Willis Consulting Unavailable GUAJARDO, DR [...] Unavailable GISELA, DR SAVANNA Willis Consulting Unavailable VLAERA ., JOLYNN Consulting Unavailable GISELA, DR SAVANNA Willis Primary Care Unavailable LAKSHMIPATHY ., NARENDRANATH Attending Jessy vailable LAKSHMIERICY ., NARENDRANATH Admitting Jessy vailable LAKSHMIPATHY ., NARENDRANATH Consulting Jessy vailable Savanna Guajardo Unavailable Roman ORTEGA Attending Unavailable Medications Current Medications Medication Drug Class(es) Dates [...] by: PB GENAO Date: 2022-10-02 11:51 Normal [facility] XR CSPINE 2_3 VIEWSon 2022 XR CSPINE [...] ISAEL GRIFFIN Date: 2022-09-05 15:58 Normal [facility] CBC AUTO DIFFon 12-31-2021 BASO # 0.0 103/ul Normal 0.0-0.1 [facility] Comment on above: Performed By: #### C BC #### [facility] [address] [place] [address] Dr. Radha Land Basophils/100 WBC (Bld) 0.2 % Normal 0.2-2.0 [facility] Comment on above: Performed By: #### C BC #### [facility] [address] [place] [address] Dr. Radha Land EO # 0.2 103/ul Normal 0.0-0.7 [facility] Comment on above: Performed By: #### C BC #### [facility] [address] [place] [address] Dr. Radha Land Eosinophils/100 WBC (Bld) 1.7 % Normal 0.9-7.0 [facility] Comment on above: Performed By: #### C BC #### [facility] [address] [place] [address] Dr. Radha Land Erythrocyte distribution width (RBC) [Ratio] 13.4 % Normal 11.0-15.0 [facility] Comment on above: Performed By: #### C BC #### [facility] [address] [place] [address] Dr. Radha Land Hematocrit (Bld) [Volume fraction] 40.9 % Normal 36.0-48.0 [facility] Comment on above: Performed By: #### C BC #### [facility] [address] [place] [address] Dr. Radha Land Hemoglobin (Bld) [Mass/Vol] 13.1 g/dL Normal 12.0-16.0 [facility] Comment on above: Performed By: #### C BC #### [facility] [address] [place] [address] Dr. Radha Land IG # 0.05 10e3/ul Critically high 0.00-0.03 [facility] Comment on above: Performed By: #### C BC #### [facility] [address] [address] [address] Radha Land IG % 0.4 % Normal 0.0-0.5 [facility] Comment on above: Performed By: #### C BC #### [facility] [address] [place] [address] Dr. Radha Land LYMPH # 1.4 103/ul Normal 1.2-3.8 [facility] Comment on above: Performed By: #### C BC #### [facility] [address] [place] [address] Dr. Radha Land Lymphocytes/100 WBC (Bld) 10.8 % Critically low 20.5-60.0 [facility] Comment on above: Performed By: #### C BC #### [facility] [address] [place] [address] Dr. Radha Lnad MANUAL DIFF REQ NO Normal [facility] Comment on above: Performed By: #### C BC #### [facility] [address] [place] [address] Dr. Radha Land MCH (RBC) [Entitic mass] 31.5 pg Normal 26.7-34.0 [facility] Comment on above: Performed By: #### C BC #### [facility] [address] [place] [address] Dr. Radha Land MCHC (RBC) [Mass/Vol] 32.0 g/dL Normal 29.9-35.2 [facility] Comment on above: Performed By: #### C BC #### [facility] [address] [place] [address] Dr. Radha Land MCV (RBC) [Entitic vol] 98.3 fL Normal 81.0-99.0 [facility] Comment on above: Performed By: #### C BC #### [facility] [address] [place] [address] Dr. Radha Land MONO # 1.3 103/ul Critically high 0.3-0.8 [facility] Comment on above: Performed By: #### C BC #### [facility] [address] [place] [address] Dr. Radha Land Monocytes/100 WBC (Bld) 9.7 % Normal 1.7-12.0 [facility] Comment on above: Performed By: #### C BC #### [facility] [address] [place] [address] Dr. Radha Land NEUT # 10.2 103/ul Critically high 1.4-6.5 [facility] Comment on above: Performed By: #### C BC #### [facility] [address] [place] [address] Dr. Radha Land Neutrophils/100 WBC (Bld) 77.2 % Critically high 43.0-75.0 [facility] Comment on above: Performed By: #### C BC #### [facility] [address] [place] [address] Dr. Radha Land Platelet mean volume (Bld) [Entitic vol] 9.7 fL Normal 9.5-13.5 [facility] Comment on above: Performed By: #### C BC #### [facility] [address] [place] [address] Dr. Radha Land PLT 235 103/ul Normal 150-450 [facility] Comment on above: Performed By: #### C BC #### [facility] [address] [place], [place] [id number] Dr. Radha Land RBC 4.16 106/ul Critically low 4.20-5.40 [facility] Comment on above: Performed By: #### C BC #### [facility] [address] [place] [address] Dr. Radha Land WBC 13.2 103/ul Critically high 4.0-11.0 [facility] Comment on above: Performed By: #### C BC #### [facility] [address] [address] [address] Radha Land SED RATE WESTERGRENon 2021 SED RATE 35 mm/hr Critically high <=30 [facility] Comment on above: Performed By: #### S EDR #### [facility] [address] [address] [address] Radha Land CBC AUTO DIFFon 11-07-2021 BASO # 0.0 103/ul Normal 0.0-0.1 [facility] Comment on above: Performed By: #### C BC ####[facility] [address] [address]DrHernandez Land Basophils/100 WBC (Bld) 0.3 % Normal 0.2-2.0 [facility] Comment on above: Performed By: #### C BC ####[facility] [address] [place], [place] [address]Dr. Radha Land EO # 0.2 103/ul Normal 0.0-0.7 [facility] Comment on above: Performed By: #### C BC ####[facility] [address] [place], [place] [address]Dr. Radha Land Eosinophils/100 WBC (Bld) 3.3 % Normal 0.9-7.0 [facility] Comment on above: Performed By: #### C BC ####[facility] [address] [address]DrHernandez Land Erythrocyte distribution width (RBC) [Ratio] 13.2 % Normal 11.0-15.0 [facility] Comment on above: Performed By: #### C BC ####[facility] [address] [address]DrHernandez Land Hematocrit (Bld) [Volume fraction] 41.9 % Normal 36.0-48.0 [facility] Comment on above: Performed By: #### C BC ####[facility] [address] [place], [place] [address]DrHernandez Land Hemoglobin (Bld) [Mass/Vol] 13.4 g/dL Normal 12.0-16.0 [facility] Comment on above: Performed By: #### C BC ####[facility] [address] [address]DrHernandez Land IG # 0.01 10e3/ul Normal 0.00-0.03 [facility] Comment on above: Performed By: #### C BC ####[facility] [address] [address]DrHernandez Land IG % 0.2 % Normal 0.0-0.5 [facility] Comment on above: Performed By: #### C BC ####[facility] [address] [place], [place] [address]DrHernandez Land LYMPH # 1.6 103/ul Normal 1.2-3.8 [facility] Comment on above: Performed By: #### C BC ####[facility] [address] [place], [place] [address]DrHernandez Land Lymphocytes/100 WBC (Bld) 27.5 % Normal 20.5-60.0 [facility] Comment on above: Performed By: #### C BC ####[facility] [address] [place], [place] [address]DrHernandez Land MANUAL DIFF REQ NO Normal [facility] Comment on above: Performed By: #### C BC ####[facility] [address] [address]DrHernandez Land MCH (RBC) [Entitic mass] 31.2 pg Normal 26.7-34.0 [facility] Comment on above: Performed By: #### C BC ####[facility] [address] [address]DrHernandez Land MCHC (RBC) [Mass/Vol] 32.0 g/dL Normal 29.9-35.2 [facility] Comment on above: Performed By: #### C BC ####[facility] [address] [address]DrHernandez Land MCV (RBC) [Entitic vol] 97.7 fL Normal 81.0-99.0 [facility] Comment on above: Performed By: #### C BC ####[facility] [address] [address]DrHernandez Radha Land MONO # 0.7 103/ul Normal 0.3-0.8 [facility] Comment on above: Performed By: #### C BC ####[facility] [address] [address]DrHernandez Radha Emery Monocytes/100 WBC (Bld) 12.4 % Critically high 1.7-12.0 [facility] Comment on above: Performed By: #### C BC ####[facility] [address] [address]Dr. Radha Land NEUT # 3.2 103/ul Normal 1.4-6.5 [facility] Comment on above: Performed By: #### C BC ####[facility] [address] [address]Dr. Jacquelyncharlotte Land Neutrophils/100 WBC (Bld) 56.3 % Normal 43.0-75.0 [facility] Comment on above: Performed By: #### C BC ####[facility] [address] [place], [place] [address]DrHernandez Radha Emery Platelet mean volume (Bld) [Entitic vol] 9.4 fL Critically low 9.5-13.5 [facility] Comment on above: Performed By: #### C BC ####[facility] [address] [place], [place] [address]Dr. Radha Emery PLT 226 103/ul Normal 150-450 [facility] Comment on above: Performed By: #### C BC ####[facility] [address] [place], [place] [address]Dr. Radha Land RBC 4.29 106/ul Normal 4.20-5.40 [facility] Comment on above: Performed By: #### C BC ####[facility] [address] [id number]. Radha Land WBC 5.7 103/ul Normal 4.0-11.0 [facility] Comment on above: Performed By: #### C BC ####[facility] [address] [place], [place] [address]LjDr. Radha Land LIPID PROFILEon 11-07-2021 CHOL-HDL RATIO NORM SEE BELOW Normal [facility] Comment on above: Result Comment: 3.3 - 4.4 LOW RISK 4.4 - 7.1 AVERAGE RISK 7.1 - 11.0 MODERATE RISK >11.0 HIGH RISK Performed By: #### L IPID, CMP #### [facility] [address] [place], [place] [address] Dr. Radha Land Cholesterol [Mass/Vol] 257 mg/dL Critically high <=200 [facility] Comment on above: Performed By: #### L IPID, CMP #### [facility] [address] [place], [place] [address] Dr. Radha Land Cholesterol in HDL [Mass/Vol] 76 mg/dL Critically high 40-60 [facility] Comment on above: Performed By: #### L IPID, CMP #### [facility] [address] [place], [place] [address] Dr. Radha Land Cholesterol in LDL [Mass/Vol] 163.8 mg/dL Normal [facility] Comment on above: Performed By: #### L IPID, CMP #### [facility] [address] [place], [place] [address] Dr. Radha Land Cholesterol.total/C holesterol in HDL [Mass ratio] 3.4 {ratio} Normal [facility] Comment on above: Performed By: #### L IPID, CMP #### [facility] [address] [place], [place] [address] Dr. Radha Land HDL NORMAL > or = 60 mg/dl - LO W CARDIOVASCULAR RISK <40 mg/dl - HIGH CARDIOVASCULAR RISK Normal [facility] Comment on above: Performed By: #### L IPID, CMP #### [facility] [address] [place], [place] [address] Dr. Radha Land LDL CALC NORMAL SEE BELOW Normal [facility] Comment on above: Result Comment: <100 mg/dl OPTIMAL 100 - 129 mg/dl NEAR OR ABOVE OPTIMAL 130 - 159 mg/dl BORDERLINE HIGH 160 - 189 mg/dl HIGH >190 mg/dl VERY HIGH Performed By: #### L IPID, CMP #### [facility] [address] [address] [address] Radha Land Triglyceride [Mass/Vol] 86 mg/dL Normal <=150 [facility] Comment on above: Performed By: #### L IPID, CMP #### [facility] [address] [address] [address] Radha Land VLDL CALC 17.2 mg/dL Normal [facility] Comment on above: Performed By: #### L IPID, CMP #### [facility] [address] [address] [address] Radha Land MG MAMM SCREEN 3D GIANCARLO CADon 11-07-2021 MG MAMM SCREEN 3D GIANCARLO CAD Patient: EDUARDO LEA Exam Date: 11/07/2021 : 1940 Gender:F Ordering : DR SAVANNA GUAJARDO M.D. Admission #: [id number] Family : Order #: [id number] CLICK HERE TO VIEW EXAM RADIOLOGY REPORT [...] ovarian cancer at age 47. LOCATION: [facility] BREAST COMPOSITION: Extremely dense, which lowers [...] MD on 11/07/2021 at 11:21 Normal [facility] PROF 14(COMP METB)on 022 Albumin [Mass/Vol] 3.6 g/dL Normal 3.4-5.0 [facility] Comment on above: Performed By: #### L IPID, CMP #### [facility] [address] [address] [address] Radha Land Albumin/Globulin [Mass ratio] 0.9 {ratio} Normal [facility] Comment on above: Performed By: #### L IPID, CMP #### [facility] [address] [address] [address] Radha Land ALP [Catalytic activity/Vol] 79 U/L Normal 46-116 [facility] Comment on above: Performed By: #### L IPID, CMP #### [facility] [address] [address] [address] Radha Land ALT [Catalytic activity/Vol] 32 U/L Normal 14-59 [facility] Comment on above: Performed By: #### L IPID, CMP #### [facility] [address] [address] [address] Radha Land Anion gap [Moles/Vol] 6.1 mmol/L Normal [facility] Comment on above: Performed By: #### L IPID, CMP #### [facility] [address] [address] [address] Radha Land AST [Catalytic activity/Vol] 28 U/L Normal 15-37 [facility] Comment on above: Performed By: #### L IPID, CMP #### [facility] [address] [address] [address] Radha Land Bilirubin [Mass/Vol] 0.6 mg/dL Normal 0.2-1.0 [facility] Comment on above: Performed By: #### L IPID, CMP #### [facility] [address] [address] [address] Radha Land Calcium [Mass/Vol] 9.1 mg/dL Normal 8.5-10.1 [facility] Comment on above: Performed By: #### L IPID, CMP #### [facility] [address] [address] [address] Radha Land Chloride [Moles/Vol] 104 mmol/L Normal 98-107 [facility] Comment on above: Performed By: #### L IPID, CMP #### [facility] [address] [address] [address] Radha Land CO2 [Moles/Vol] 31.0 mmol/L Normal 21.0-32.0 [facility] Comment on above: Performed By: #### L IPID, CMP #### [facility] [address] [address] [address] Radha Land Creatinine [Mass/Vol] 0.86 mg/dL Normal 0.55-1.02 [facility] Comment on above: Performed By: #### L IPID, CMP #### [facility] [address] [place] [address] Dr. Radha Land EGFR-AF IRAQI >60 Normal >=60 [facility] Comment on above: Performed By: #### L IPID, CMP #### [facility] [address] [place] [address] Dr. Radha Land EGFR-NON AF IRAQI >60 Normal >=60 [facility] Comment on above: Performed By: #### L IPID, CMP #### [facility] [address] [place] [address] Dr. Radha Land Globulin (S) [Mass/Vol] 4.1 g/dL Normal [facility] Comment on above: Performed By: #### L IPID, CMP #### [facility] [address] [place] [address] Dr. Radha Land Glucose [Mass/Vol] 89 mg/dL Normal 74-106 [facility] Comment on above: Performed By: #### L IPID, CMP #### [facility] [address] [address] [address] Radha Land Potassium [Moles/Vol] 4.1 mmol/L Normal 3.5-5.1 [facility] Comment on above: Performed By: #### L IPID, CMP #### [facility] [address] [address] [address] Radha Land Protein [Mass/Vol] 7.7 g/dL Normal 6.4-8.2 [facility] Comment on above: Performed By: #### L IPID, CMP #### [facility] [address] [address] [address] Radha Land Sodium [Moles/Vol] 137 mmol/L Normal 136-145 [facility] Comment on above: Performed By: #### L IPID, CMP #### [facility] [address] [address] [address] Radha Land Urea nitrogen [Mass/Vol] 12.0 mg/dL Normal 7.0-18.0 [facility] Comment on above: Performed By: #### L IPID, CMP #### [facility] [address] [address] [address] Radha Land Urea nitrogen/Creatinine [Mass ratio] 14.0 mg/mg Normal [facility] Comment on above: Performed By: #### L IPID, CMP #### [facility] [address] [address] [address] Radha Land Vital Signs Date Time Vital Sign Value Performing Clinician Facility 01-10-2023 09:45-0400 Body height 165.1 cm Savanna Guajardo [facility] Other 01-10-2023 09:45-0400 Body mass index (BMI) [Ratio] 20.87 kg/m2 Savanna Guajardo [facility] Other 01-10-2023 09:45-0400 Body weight 56.88 kg Savanna Guajardo Other [facility] Other 01-10-2023 09:45-0400 Diastolic blood pressure 78 mm[Hg] Savanna Guajardo Other [facility] Other 01-10-2023 09:45-0400 Systolic blood pressure 142 mm[Hg] Savanna Guajardo Other [facility] Other 10-28-2022 08:30-0400 Body height 165.1 cm Savanna Guajardo Other [facility] Other 10-28-2022 08:30-0400 Body mass index (BMI) [Ratio] 20.47 kg/m2 Savanna Guajardo Other [facility] Other 10-28-2022 08:30-0400 Body weight 55.79 kg Savanna Guajardo Other [facility] Other 10-28-2022 08:30-0400 Diastolic blood pressure 47 mm[Hg] Savanna Guajardo Other [facility] Other 10-28-2022 08:30-0400 Systolic blood pressure 124 mm[Hg] Savanna Guajardo Other [facility] Other Encounters Encounter Date Encounter Type Care Provider Facility Start: 09-17-2023 ambulatory Roman ORTEGA [facility] ty:ANDREW Diallo Start: 09-11-2023 ambulatory Roman ORTEGA Facility :[facility]REW Diallo Start: 08-26-2023 End: 08-26-2023 ambulatory [facility] Work Phone: Start: 08-26-2023 End: 08-26-2023 Patient encounter procedure [facility] Work Phone: Start: 03-28-2023 End: 03-28-2023 ambulatory Savanna Guajardo Other [facility] Other Start: 03-28-2023 Telephone encounter Savanna Guajardo [facility] Start: 01-31-2023 End: 01-31-2023 ambulatory Savanna Guajardo Other [facility] Other Start: 01-31-2023 Nursing evaluation o f patient and report Savanna Guajardo [facility] Start: 01-14-2023 End: 01-14-2023 ambulatory Savanna Guajardo Other [facility] Other Start: 01-14-2023 Telephone encounter Savanna Guajardo [facility] Start: 01-10-2023 End: 01-10-2023 ambulatory Savanna Guajardo Other [facility] Other Start: 01-10-2023 Office outpatient visit 15 minutes Savanna Guajardo [facility] Start: 10-28-2022 End: 10-28-2022 ambulatory Savanna Guajardo Other [facility] Other Start: 10-28-2022 Patient encounter procedure Savanna Guajardo [facility] Start: 10-24-2022 End: 10-24-2022 ambulatory Savanna Guajardo Other [facility] Other Start: 10-24-2022 Telephone encounter Savanna Guajardo [facility] Start: 10-08-2022 End: 10-08-2022 ambulatory AJ LEMIAARON . Facility:[facility] Start: 10-02-2022 End: 10-03-2022 ambulatory [...] 12-31-2021 Adult health examination Savanna Guajardo Other [facility] Other Start: 12-31-2021 End: 01-01-[address] [...] Immunization Date Immunization Notes Care Provider Fa cility 02-28-2022 influenza virus vaccine, split virus (incl. purified surface antigen) Savanna Guajardo Other [facility] Other 02-28-2022 influenza virus vaccine, unspecified formulation [facility] 02-27-2021 influenza virus vaccine, split virus (incl. purified surface antigen) Savanna Guajardo Other [facility] Other 02-27-2021 influenza virus vaccine, unspecified formulation [facility] 02-16-2020 influenza virus vaccine, split virus (incl. purified surface antigen) Savanna Guajardo Other [facility] Other 02-16-2020 influenza virus vaccine, unspecified formulation [facility] 10-25-2019 pneumococcal polysaccharide vaccine, 23 valent Savanna Guajardo Other [facility] 03-10-2018 pneumococcal conjuga te vaccine, 13 valent Savanna Guajardo Other [facility] 01-08-2017 influenza virus vaccine, split virus (incl. purified surface antigen) Savanna Guajardo Other [facility] Other 01-08-2017 influenza virus vaccine, unspecified formulation [facility] 02-06-2016 influenza virus vaccine, split virus (incl. purified surface antigen) Savanna Guajardo Other [facility] Other 02-06-2016 influenza virus vaccine, unspecified formulation [facility] 03-24-2015 influenza virus vaccine, split virus (incl. purified surface antigen) Savanna Guajardo Other [facility] Other 03-24-2015 influenza virus vaccine, unspecified formulation [facility] 02-26-2013 tetanus and diphther ia toxoids, adsorbed, preservative free, for adult use (5 Lf of tetanus toxoid and 2 Lf of diphtheria toxoid) Savanna Guajardo Other [facility] Payers Date Payer Category Payer Medicare [id number] 1960 Medicare [id number] 1940 Unknown [id number] 2.16.84 [id number] 1940 Unknown [id number] 2.16.84 [id number] 1940 Unknown [id number] 2.16.84 [id number] 1940 Unknown [id number] 2.16.84 [id number] 1940 Unknown [id number] 2.16.84 [id number] 1940 Unknown [id number] 2.16.84 [id number] 1940 Unknown [id number] 2.16.84 [id number] 1940 Unknown [id number] 2.16.84 [id number] 1940 Unknown [id number] 2.16.84 0.1.679176.3.579.2.593 1940 Unknown [id number] 2.16.84 0.1.133196.3.579.2.593 1940 Unknown [id number] 2.16.84 [id number] 1940 Unknown [id number] 2.16.84 0.1.301886.3.579.2.593 1940 Unknown [id number] 2.16.8 40.1.874555.3.579.2.727 1940 Unknown [id number] 2.16.8 [id number] Private Health Insurance [id number] Social History Date Type Detail Facility Unknown if ever smoked [facility] Other Sex Assigned At Sex Assigned At Bir th [facility] Other Start: 1940 Sex Assigned At Female F [facility] Evaluation note 01-31-2023 Note Date & Type Note Facility 01-31-2023 Evaluation note Encounter Date Diagnosis Assessment Notes Jan, Seasonal allergic rhinitis, unspecified trigger (ICD-10 - J30.2) [facility] Other Evaluation note 01-10-2023 Note Date & Type Note Facility 01-10-2023 Evaluation note Encounter Date Diagnosis Assessment Notes Jan, Piriformis syndrome of left side (ICD-10 - G57.02) Unable to add more tramadol - likely has pain clinic w [facility]. PT order printed. Add steroids. Also gave copies of home exercises. [facility] Other Evaluation note 10-28-2022 Note Date & [...] - order handwritten and given to pt [facility] Other Consultation note 09-05-2022 Note Date & [...] our patients to inform us about any aefd-jkm-mbqbexk medications or herbal remedies/nutritional supplements/alternative remedies. 2. [...] options with their primary care provider. [facility] Consultation note 12-25-2021 Note Date & [...] range of motion exercises are performed. [facility] Consultation note 12-19-2021 Note Date & [...] where she was seen by the physician machine assistant in the office and received left [...] of care, to be contacted LARISA. [facility] Evaluation note Note Date & Type Note Facility Evaluation note No Information [facility] [employer] Other Evaluation note Note Date & Type Note Facility Evaluation note No assessment information [facility] [facility] Work Phone: History general Narrative - Reported Note Date & Type Note Facility History general Narrative - Reported Type Medical History migraine headache Medical History dizziness Medical History tremors Surgical History hysterectomy Surgical History bunionectomy Surgical History stapedectomy Hospitalization History see above Visible Measures Other Summary Purpose Family History No Family History Records Found Relationship Condition Age at Onset Recorded Date/T julia father Unknown family member Unknown Not Specified Unknown Advance Directives No Advanced Directives Records Found Advance Directive Response Recorded Date/ Time Advance Directives No August 25 024 10:55am Chief Complaint and Reason for Visit Chief Complaint allergy shot Additional Source Comments INFORMATION SOURCE (unrecogn ized section and content) DATE CREATED AUTHOR 10/18/2022 [facility] DATE CREATED AUTHOR AUTHOR'S ORGANTOD AT[facility] REASON FOR VISIT (unrecogniz ed section and [...] BE BASED ON THE PRIMARY CLINICAL RECORDS. [facility] [employer] [facility]. provides no warranty or guarantee of the accuracy or completeness of information in this document.
--- NOTE | 2023-09-15 13:02 | XR_ITS ---
The [address] [address] Patient Name: EDUARDO LEA MRN: [id number] date: 1940 Sex: F Assigned Patient Location: [facility] Current Patient Location: Accession/Order Number: [id number] Exam Date: 09/15/2023 12:58 Report Date: 09/17/2023 05:55 At the request of: STAN ORTEGA Procedure: XR abdomen 1V EXAMINATION: XR abdomen 1V HISTORY: Kidney Stone N20.0 , right flank pain COMPARISON: CT abdomen pelvis 09/09/2023, XR left hip header 01/01/2023 FINDINGS: KIDNEY/URETER - RIGHT: No visible renal or ureteral calcifications. KIDNEY/URETER - LEFT: 4 mm calcification projecting near superior aspect of left sacroiliac joint. PELVIS: No suspicious pelvic calcifications. BOWEL: No abnormal dilation or deviation. BONES: No acute abnormality. OTHER: Negative. No abnormal gaseous collections. XR/XR abdomen 1V IMPRESSION: 1. 1.2 cm opacity within right upper quadrant projecting over region of right kidney which could represent a stone, however, there were no kidney stones 9 days ago on the CT study suggesting this represents overlying artifact or bowel content. 2. 4 mm calcifications suspected to be within mid left ureter likely representing none to minimal progression of previously seen left ureteral stone. Electronically authenticated by: PB GENAO Date: 09/17/2023 05:55
== END 2023-09-15 12:42 | disposition home or self-care (01) ==
LOC: RAD 12:45
PROVIDERS: PCP Family Medicine; Visit Provider Urology
DX: N20.0 Calculus of kidney (principal)
CPT/HCPCS: 74018

== ENCOUNTER 2023-10-10 07:08 | Outpatient (OUT) | payer MEDICARE, SELFPAY ==
--- OUTSIDE RECORDS SUMMARY | 2023-10-10 07:12 | XMS_ITS | CCD ---
Author Organization [facility] Care Team Providers Care Methods Specialist Engineer Name Role Phone GISELA, DR SAVANNA Willis Primary Care Unavailable BECKER ., DR VALENTINA Rothman Attending Unavailable BECKER ., DR VALENTINA Rothman Admitting Unavailable HIGGINS, DR SAVANNA Willis Primary Care Unavailable BECKER ., DR VALENTINA Rothman Attending Unavailable BECKER ., DR VALENTINA Rothman Admitting Unavailable HIGGINS, DR SAVANNA Willis Primary Care Unavailable BECKER ., DR VALENTINA Rothman Attending Unavailable BECKER ., DR VALENTINA Rothman Admitting Unavailable BECKER ., DR VALENTINA Rothman Admitting Unavailable BECKER ., DR VALENTINA Rothman Attending Unavailable HIGGINS, DR SAVANNA Willis Consulting Unavailable HIGGINS, DR SAVANNA Willis Primary Care Unavailable BECKER ., DR VALENTINA Rothman Consulting Unavailable LAKSHMIPATHY ., NARPAULINA Admitting Jessy vailable LAKSHMIPATHY ., NARPAULINA Consulting Jessy vailable LAKSHMIPATHY ., AJ Attending Jessy vailable HIGGINS, DR SAVANNA Willis Primary Care Unavailable HIGGINS, DR SAVANNA Willis Primary Care Unavailable HIGGINS, DR SAVANNA Willis Attending Unavailable DURANT, DR MINE Barriga Consulting Unavailable GISELA, DR SAVANNA Willis Admitting Unavailable HIGGINS, DR SAVANNA Willis Consulting Unavailable HIGGINS, DR SAVANNA Willis Attending Unavailable HIGGINS, DR SAVANNA Willis Admitting Unavailable BIRGIT, DR PB Mitchell Consulting Unavailable GISELA, DR SAVANNA Willis Primary Care Unavailable HIGGINS, DR SAVANNA Willis Consulting Unavailable GISELA, DR SAVANNA Willis Primary Care Unavailable LAKSHMIPATHY ., AJ Attending Jessy vailable LAKSHMIPATHY ., NARENDLOWELLATH Admitting Jessy vailable LAKSHMIPATHY ., NARENDLOWELLATH Consulting Jessy vailable RASTEDIOR, ISAEL Consulting Unavailable GISELA, DR SAVANNA Willis Primary Care Unavailable GISELA, DR SAVANNA Willis Consulting Unavailable HIGGINS, DR SAVANNA Willis Attending Unavailable HIGGINS, DR SAVANNA Willis Admitting Unavailable BECKER ., DR VALENTINA Rothman Admitting Unavailable ROSITA ., DR VALENTINA Rothman Consulting Unavailable ROSITA ., DR VALENTINA Rothman Attending Unavailable GISELA, DR SAVANNA Willis Primary Care Unavailable ROSITA ., DR VALENTINA Rothman Admitting Unavailable ROSITA ., DR VLAENTINA Rothman Attending Unavailable HIGGINS, DR SAVANNA Willis Primary Care Unavailable HIGGINS, DR SAVANNA Willis Consulting Unavailable VALERA ., JOLYNN Consulting Unavailable GISELA, DR SAVANNA Willis Primary Care Unavailable LAKSHMIPATHY ., NARENDRANATH Attending Jessy vailable LAKSHMIPATHY ., NARENDRANATH Admitting Jessy vailable LAKSHMIPATHY ., NARENDRANATH Consulting Jessy vailable Savanna Higgins Unavailable SAVANNA HIGGINS Primary Care Physician Roman GUAN Attending Unavailable Roman GUAN Attending Unavailable Medications Current Medications Medication Drug Class(es) Dates Sig (Normalized) Sig (Original) atenolol 50 mg oral tablet (3 sources) beta-Adrenergic Tera Start: 09-29-2023 take 50 mg by mouth once daily Atenolol Active 50 MG PO Daily September 29, 2023 12:00am Start: 09-17-2023 take 1 tablet by mouth once da candice atenolol 50 mg Tab 50 mg = 1 tab(s), Oral, Daily Start Date: 09/17/23 Status: Ordered Start: 03-28-2023 take 1 tablet by christian th every twenty-four hours Atenolol 50 MG 1 tablet Orally Once a day for 90 days Mar, Active Caltrate (1 source) Start: 09-17-2023 take 1 mg by mouth once daily Caltrate mg, Oral, Daily, Refills(s) 0 Start Date: 09/17/23 Status: Ordered Caltrate 600 with D (1 source) Start: 02-19-2010 Caltrate 600 w ith D 1 tab(s), Oral, Daily, Refill(s) 0, Prophylaxis Start Date: 02/19/10 Status: Ordered Osteo Bi-Flex (1 source) Start: 09-17-2023 Osteo Bi-Flex Refill(s) 0 Start Date: 09/17/23 Status: Ordered diclofenac potassium 25 mg oral tablet (9 sources) Nonsteroidal Anti-inflammatory Drug Start: 09-29-2023 take 25 mg by mouth four times daily Diclofenac Potassium Active 25 MG PO Four times daily September 29, 2023 12:00am Start: 09-17-2023 diclofenac sod ium 50 mg Oral EC Tab 50 mg = 1 tab(s), Oral Start Date: 09/17/23 Status: Ordered take 1 tablet by christian th four times daily at mealtime as needed Diclofenac Potassium 25 MG 1 tablet with food or milk as needed Orally Four times a day Active Fish Oils (1 source) Start: 02-19-2010 take 1 tablet by mouth once daily [place]-3 Fish Oil 1 tab, Oral, Daily, Refill(s) 0, Prophylaxis Start Date: 02/19/10 Status: Ordered meclizine hydrochloride 25 mg oral tablet (8 sources) Antiemetic Start: 09-17-2023 meclizine 25 m g Tab 25 mg = 1 tab(s), Oral Start Date: 09/17/23 Status: Ordered take 1 tablet by christian th every six hours as needed Meclizine HCl 25 MG 1 tablet orally ever y 6 hours prn for 30 days Active methylPREDNISolone 4 mg oral tablet (1 source) Corticosteroid Start: 09-30-2023 take 1 tablet by mouth once Methylprednisolone (Medrol (Hebr)) 4 mg tablets,dose pack Active 0 PO per package directions September 30, 2023 12:00am PO PER PKG DIR for 6 days Misc Medication (1 source) Start: 02-28-2014 take 1 tablet by mouth once daily Misc Medication one tab, Oral, Daily Start Date: 02/28/14 Status: Ordered Multiple Vitamins oral capsule (1 source) Start: 02-19-2010 take 1 capsule by mouth once daily Multiple Vitamins oral capsule 1 cap(s), Oral, Daily, Refill(s) 0, Prophylaxis Start Date: 02/19/10 Status: Ordered Multivitamin preparation (7 sources) Multivitamin Act marysol predniSONE 20 mg oral tablet (5 sources) Start: 01-10-2023 take 2 tablets by mouth every twenty-four hours predniSONE 20 MG 2 tablets Orally Once a day for 5 days Jan, Active tamsulosin hydrochloride 0.4 mg oral capsule (1 source) alpha-Adrenergic Tera Start: 09-17-2023 End: 10-17-2023 take 1 capsule by mouth once daily Flomax 0.4 mg Cap 0.4 mg = 1 cap(s), Oral, Daily, Stop taking if experiencing dizziness or lightheadedness., X 30 day(s), # 30 cap(s), Refills(s) 0, Pharmacy: [facility]/pharmacy #[id number], 56.1, kg, 09/17/23 8:03:00 EDT, Weight Dosing Start Date: 09/17/23 Stop Date: 10/17/23 Status: Ordered tiZANidine 2 mg oral tablet (1 source) Central alpha-2 Adrenergic Agonist Start: 09-30-2023 take 2 mg by mouth every eight hours Tizanidine Active 2 MG PO Every 8 hours September 30, 2023 12:00am traMADol (5 sources) Opioid Agonist traMADol HCl Act marysol ZOLMitriptan 5 mg oral tablet (1 source) Serotonin-1b and Serotonin-1d Receptor Agonist Start: 02-19-2010 take 1 tablet by mouth once as needed for headache Zomig 5 mg oral tablet = 1 tab(s), Oral, Once, PRN for migraine headache, # 10 tab(s), Refills(s) 0 Start Date: 02/19/10 Status: Ordered Completed/Discontinued Medications Medication Drug Class(es) Dates Sig (Normalized) Sig (Original) 24 hr metoprolol succinate 25 mg extended release oral capsule (8 sources) beta-Adrenergic Tera Start: 09-29-2023 End: 09-30-2023 take 25 mg by mouth once daily Metoprolol Succinate Discontinued 25 MG PO Daily September 29, 2023 12:00am September 30, 2023 2:41pm Metoprolol Succi olena 25 MG 1 tablet once a day Active triamcinolone acetonide 40 mg/ml injectable suspension (10 sources) Corticosteroid Start: 09-25-2022 Kenalog-40 Jan, 60 mg Problems Active Problems Problem Classification Problem Date Documented Date Episodic/Chronic Calculus of urinary tract (2 sources) Ureteric stone; Translations: [Calculus of ureter] Onset: 09-17-2023 Episodic Cataract (1 source) Cataract 02-28-2014 Chronic Conditions associated with dizziness or vertigo (1 source) Meniere's disease 02-28-2014 Chronic Disorders of lipid metabolism (11 sources) Pure hypercholesterolemia; Translations: [Pure hypercholesterolemia, unspecified] Onset: 09-16-2013 02-28-2014 Chronic Essential hypertension (8 sources) Essential (primary) hypertension; Translations: [Essential hypertension] Onset: 11-09-2021 Chronic Headache; including migraine (1 source) Migraine 02-28-2014 Chronic Immunizations and screening for infectious disease [...] Spondylosis; intervertebral disc disorders; other back problems (6 sources) Cervicalgia; Translations: [Lumbago] Onset: 09-05-2022 Episodic Unclassified (1 source) tremors 1 02-28-2014 Comment on above: involuntary left su d Past or Other Problems Problem Classification Problem [...] Results Test Name Value Interpretation Reference Range Facility ED Note-Physicianon 09-18-19 ED Note-Physician [id number] 8#1.00TIFF [facility] [place] Formson 09-18-2023 Forms [id number] #1.00TIFF [facility] [place] RAD - CT Reporton 09-18-2023 RAD - CT Report [id number] 8#1.00TIFF [facility] [place] RAD - MISCon 09-18-2023 RAD - MISC [id number] 1#1.00TIFF [facility] [place] RAD - MISC [id number]# 1.00TIFF [facility] [id number] 9#1.00TIFF [facility] Ambulatory Visit Summaryon 0 09-17-2023 Ambulatory Visit Summary EDUARDO LEA :1940 Visit Date:09/17/2023 Ambulatory Visit Instructions Your Diagnosis Left ureteral stone Tests Performed XR Abdomen 1 View -- Results Pending -- Please visit your patient portal for your results or contact your primary care physician. Your Care Team Attending Physician - SHANNON SALGUERO, Roman Mitchell Primary Care Physician - SAVANNA HIGGINS MD This Is Your Medications List tamsulosin (Flomax 0.4 mg Cap) Contact prescribing physician if questions or concerns Non-Formulary Medication (Misc Medication) atenolol (atenolol 50 mg Tab) calcium carbonate (Caltrate) calcium-vitamin D (Caltrate 600 with D) chondroitin-glucosam ine (Osteo Bi-Flex) diclofenac (diclofenac sodium 50 mg Oral EC Tab) meclizine (meclizine 25 mg Tab) multivitamin (Multiple Vitamins oral capsule) omega-3 polyunsaturated fatty acids (Peru-3 Fish Oil) zolmitriptan (Zomig 5 mg oral tablet) Procedures Performed right cataract extraction with intraocular lens implantation (02/28/2014), Bunionectomy, Cataract extraction and insertion of intraocular lens, cervical herniated disc removed, Hysterectomy and bilateral salpingo-oophorectom y sample, stapidectomy. Discharge Vitals Heart Rate (Peripheral) 64 Blood Pressure 132/80 Weight 56.1 kg Weight 123.42 lb What to do next Scheduled Follow-Up Appointments Friday 12:15 PM EDT With: SHANNON SALGUERO, Roman Mitchell Where: [facility] Patient Educationon 09-17-19 Patient Education Urology Kidney Stones Kidney stones are solid, rock-like deposits that form inside of the kidneys. The kidneys are a pair of organs that make urine. A kidney stone may form in a kidney and move into other parts of the urinary tract, including the tubes that connect the kidneys to the bladder (ureters), the bladder, and the tube that carries urine out of the body (urethra). As the stone moves through these areas, it can cause intense pain and block the flow of urine. Kidney stones are created when high levels of certain minerals are found in the urine. The stones are usually passed out of the body through urination, but in some cases, medical treatment may be needed to remove them. What are the causes? Kidney stones may be caused by: ? A condition in which certain glands produce too much parathyroid hormone (primary hyperparathyroidism) , which causes too much calcium buildup in the blood. ? A buildup of uric acid crystals in the bladder (hyperuricosuria). Uric acid is a chemical that the body produces when you eat certain foods. It usually leaves the body in the urine. ? Narrowing (stricture) of one or both of the ureters. ? A kidney blockage that is present at (congenital obstruction). ? Past surgery on the kidney or the ureters. What increases the risk? The following factors may make you more likely to develop this condition: ? Having had a kidney stone in the past. ? Having a family history of kidney stones. ? Not drinking enough water. ? Eating a diet that is high in protein, salt (sodium), or sugar. ? Being overweight or obese. What are the signs or symptoms? Symptoms of a kidney stone may include: ? Pain in the side of the abdomen, right below the ribs (flank pain). Pain usually spreads (radiates) to the groin. ? Needing to urinate often or urgently. ? Painful urination. ? Blood in the urine (hematuria). ? Nausea. ? Vomiting. ? Fever and chills. How is this diagnosed? This condition may be diagnosed based on: ? Your symptoms and medical history. ? A physical exam. ? Blood tests. ? Urine tests. These may be done before and after the stone passes out of your body through urination. ? Imaging tests, such as a CT scan, abdominal X-ray, or ultrasound. ? A procedure to examine the inside of the bladder (cystoscopy). How is this treated? Treatment for kidney stones depends on the size, location, and makeup of the stones. Kidney stones will often pass out of the body through urination. You may need to: ? Increase your fluid intake to help pass the stone. In some cases, you may be given fluids through an IV and may need to be monitored in the hospital. ? Take medicine for pain. ? Make changes in your diet to help prevent kidney stones from coming back. Sometimes, procedures are needed to remove a kidney stone. This may involve: ? A procedure to break up kidney stones using: ? A focused beam of light (laser therapy). ? Shock waves (extracorporeal shock wave lithotripsy). ? Surgery to remove kidney stones. This may be needed if you have severe pain or have stones that block your urinary tract. Follow these instructions at home: Medicines ? Take [id number] and prescription medicines only as told by your health care provider. ? Ask your health care provider if the medicine prescribed to you requires you to avoid driving or using heavy machinery. Eating and drinking ? Drink enough fluid to keep your urine pale yellow. You may be instructed to drink at least 8?10 glasses of water each day. This will help you pass the kidney stone. ? If directed, change your diet. This may include: ? Limiting how much sodium you eat. ? Eating more fruits and vegetables. ? Limiting how much animal protein you eat. Animal proteins include red meat, poultry, fish, and eggs. ? Eating a normal amount of calcium (1,000?1,300 mg per day). ? Follow instructions from your health care provider about eating or drinking restrictions. General instructions ? Collect urine samples as told by your health care provider. You may need to collect a urine sample: ? 24 hours after you pass the stone. ? 8?12 weeks after you pass the kidney stone, and every 6?12 months after that. ? Strain your urine every time you urinate, for as long as directed. Use the strainer that your health care provider recommends. ? Do not throw out the kidney stone after passing it. Keep the stone so it can be tested by your health care provider. Testing the makeup of your kidney stone may help prevent you from getting kidney stones in the future. ? Keep all follow-up visits. You may need follow-up X-rays or ultrasounds to make sure that your stone has passed. How is this prevented? To prevent another kidney stone: ? Drink enough fluid to keep your urine pale yellow. This is the best way to prevent kidney stones. ? Eat a healthy diet. Follow recommendations from (more content not included)... [facility] Urology Office/Clinic Noteon 09-17-2023 Urology Office/Clinic Note Chief Complaint New pt HPI Staff 1 week follow up w/[facility]-09/15/23-[facility] Pt was seen at [facility] on 09/09/[address] due to abdominal [address] SCAN 09/09/23 Dysuria: denies pain or burning Incomplete bladder emptying: denies Hematuria: denies visible blood, UA shows MODERATE Frequency: every hour Urgency: denies Nocturia: sometimes Stream: denies hesitancy, denies weak stream Leaking: yes Post void dripping: denies Wearing pads/ Depends: yes wears pads daily, changes once a day Urge incontinence: yes Stress incontinence: yes Incontinence without Sensory Awareness: denies Abdominal pain: denies Flank pain: yes right sided flank pain Sexual complaints: denies History of Present Illness Tests reviewed: reviewed UA, [facility] I have reviewed the previous health record information and history for this patient from Dr. Guan. I have reviewed and verified the staff HPI to be accurate for this encounter. There have been no associated fever, chills, flank pain, or blood in the urine. Denies any urinary infections since last encounter. Review of Systems PHQ Score Initial Depression Screen Score: 0 SCORE ROS - Provider Constitutional: denies weight loss, denies hot flashes. Eyes: denies eye problems. Gastrointestinal: denies nausea, denies vomiting. Cardiovascular: denies chest pain or angina. Integumentary: no dryness Musculoskeletal: denies musculoskeletal symptoms. ENMT: denies otolaryngeal symptoms. Respiratory: no shortness of breath. Heme/Lymph: denies easy bleeding tendency, denies easy bruising tendency. Psychiatric: no confusion, no anxiety. Genitourinary: See HPI. Physical Exam Vitals & Measurements HR: 64(Peripheral) BP: 132/80 WT: 56.1 kg WT: 123.42 lb General Appearance: alert , no acute distress, well nourished, well developed female. Genitourinary: bladder nonpalpable, no flank pain. Assessment/Plan Eduardo is an 83 yo female new pt following up to [facility] ED visit 09/09/23 due to intermittent L abd/flank pain w/nausea. Pt accompanied by an adult male. 1. Left ureteral stone (N20.1: Calculus of ureter) CT AP wo con 09/09/23 - 4 mm obstructing stone mid L ureter, moderate L sided hydroureteronephrosi s. No R sided renal or ureteral stones. No bladder stones. [facility] 09/15/23 - 4 mm calcification projection suspected to be w/in mid L ureter likely representing none to minimal progression of previously seen L ureteral stone. UA shows moderate blood, neg for infection. Likely stone related. Will cont to monitor for resolution after stone free. Reviewed imaging with pt. Previously had a stone that she was unable to pass, required surgery 2 years ago in [place], [place]. Was told at this time that she had a puncture in her kidney that would heal. Having R sided pain in back (stone on L side) so this pain is unrelated. No fever, shaking, or chills. Completed Flomax script from ED. Discussed cont MET. Follow up 3 weeks with [facility] or sooner if needed. Pt understands and agrees with plan. -Restart Flomax 0.4 mg qd x 30 ct[address] SEs discussed. Rx sent to [facility]. -High fluid intake. -Pt to call or go to the ER if he were to experience fever, shaking, chills, uncontrolled nausea, vomiting, or pain. Follow-up With When Contact Information SHANNON SALGUERO, Roman Mitchell, URL [facility] [address], [place] [address]- Additional Instructions: 3 weeks with [facility] Patient Education Kidney Stones I, Cynthia Jones, personally scribed for Dr. Guan on 09/17/2023 08:39:08. . Documentation recorded by the scribe, Cynthia Jones, accurately reflects the services(s) I performed and decisions made by me. Authenticated by Dr. Guan on 09/17/2023 08:41:21. Problem List/Past Medical History Ongoing Hypercholesterolemia Left ureteral stone Meniere disease migraine headache tremors Historical No qualifying data Procedure/Surgical History right cataract extraction with intraocular lens implantation (02/28/2014), Bunionectomy, Cataract extraction and insertion of intraocular lens, cervical herniated disc removed, Hysterectomy and bilateral salpingo-oophorectom y sample, stapidectomy. Medications atenolol 50 mg Tab, 50 mg= 1 tab(s), Oral, Daily Caltrate, Oral, Daily Caltrate 600 with D, 1 tab(s), Oral, Daily diclofenac sodium 50 mg Oral EC Tab, 50 mg= 1 tab(s), Oral meclizine 25 mg Tab, 25 mg= 1 tab(s), Oral Misc Medication, one tab, Oral, Daily Multiple Vitamins oral capsule, 1 cap(s), Oral, Daily [place]-3 Fish Oil, 1 tab, Oral, Daily Osteo Bi-Flex Zomig 5 mg oral tablet, 1 tab(s), Oral, Once, PRN Allergies No Known Allergies Social History Alcohol - Denies Alcohol Use, 02/19/2010 Substance Abuse - Denies Substance Abuse, 02/19/2010 Tobacco - Denies Tobacco Use, 02/19/2010 Never (less than 100 in lifetime) Tobacco Use:. Never Smokeless Tobacco Use:., 09/17/2023 Family History Ovarian cancer: Mother. Lab Results (more content not included)... [facility] [place] Comment on above: Result Comment: Elec tronically Signed By: Roman GUAN MD\.br\Date and Time Signed: 09/17/23 08:41 EDT\.br\Electronically Co-Signed By: Cynthia Jones\.br\Date and Time Co-Signed: 09/17/23 08:39 EDT Basophils Auto (Bld) [#/Vol] on 09-09-2023 Basophils (Bld) [#/Vol] 0.0 10 3/uL 0.0-0.1 [facility] Basophils/100 WBC Auto (Bld) on 09-09-2023 Basophils/100 WBC (Bld) 0.4 % 0.2-2.0 [facility] Casts typing in urine sedime nt by light microscopyon 09-09-2023 Casts LM Nom (Urine sed) NONE SEEN #/LPF NONE SEEN [facility] Eosinophils/100 WBC Auto (Bl d)on 09-09-2023 Eosinophils/100 WBC (Bld) 1.1 % 0.9-7.0 [facility] Erythrocyte distribution wid th Auto (RBC) [Ratio]on 09-09-2023 Erythrocyte distribution width (RBC) [Ratio] 13.0 % 11.0-15.0 [facility] Estimated glomerular filtrat ion rate (GFR) non- Americanon 09-09-2023 GFR/1.73 sq M.predicted among non-blacks MDRD (S/P/Bld) [Vol rate/Area] 52 mL/min/{1.73_m2} >=60 [facility] Globulin Calc (S) [Mass/Vol] on 09-09-2023 Globulin (S) [Mass/Vol] 3.5 g/dL [facility] Hematocrit Auto (Bld) [Volum e fraction]on 09-09-2023 Hematocrit (Bld) [Volume fraction] 39.0 % 36.0-48.0 [facility] Hemoglobin [Mass/volume] in Bloodon 09-09-2023 Hemoglobin (Bld) [Mass/Vol] 12.6 g/dL 12.0-16.0 [facility] Laboratory - Chemistry and C hemistry - challengeon 09-09-2023 Albumin [Mass/Vol] 3.6 g/dL 3.4-5.0 [facility] ALP [Catalytic activity/Vol] 74 U/L 46-116 [facility] ALT [Catalytic activity/Vol] 30 U/L 14-59 [facility] AST [Catalytic activity/Vol] 24 U/L 15-37 [facility] Bilirubin [Mass/Vol] 0.5 mg/dL 0.2-1.0 [facility] Calcium [Mass/Vol] 9.8 mg/dL 8.5-10.1 [facility] Chloride [Moles/Vol] 102 mmol/L 98-107 [facility] CO2 [Moles/Vol] 31.2 mmol/L 21.0-32.0 [facility] Creatinine [Mass/Vol] 1.01 mg/dL 0.55-1.02 [facility] GFR/1.73 sq M.predicted MDRD (S/P/Bld) [Vol rate/Area] mL/min/{1.73_m2} >=60 [facility] Glucose [Mass/Vol] 100 mg/dL 74-106 [facility] Lipase [Catalytic activity/Vol] 25.0 U/L 16.0-77.0 [facility] Potassium [Moles/Vol] 3.9 mmol/L 3.5-5.1 [facility] Protein [Mass/Vol] 7.1 g/dL 6.4-8.2 [facility] Sodium [Moles/Vol] 140 mmol/L 136-145 [facility] Urea nitrogen [Mass/Vol] 22.0 mg/dL 7.0-18.0 [facility] Urea nitrogen/Creatinine [Mass ratio] 21.8 mg/mg [facility] Bilirubin Ql (U) Negative NEGATIVE [facility] Glucose (U) [Mass/Vol] Negative NEGATIVE [facility] Ketones Ql (U) Negative NEGATIVE [facility] pH (U) 6.0 [pH] 5.0-9.0 [facility] Specific gravity (U) [Rel density] 1.020 1.005-1.025 [facility] Urobilinogen Qn (U) 0.2 {Sosa'U}/dL 0.2-1.0 [facility] Laboratory - Hematology and Cell countson 09-09-2023 Immature granulocytes/100 WBC (Bld) 0.3 % 0.0-0.5 [facility] Laboratory - Specimen inform ationon 09-09-2023 Appearance (U) CLEAR CLEAR [facility] Color (U) DK. YELLOW YELLOW [facility] Laboratory - Urinalysison Amorphous sediment LM Ql (Urine sed) RARE [facility] Leukocyte esterase Test strip Ql (U) TRACE NEGATIVE [facility] Nitrite Ql (U) Negative NEGATIVE [facility] Protein Ql (U) Negative NEG/TRACE [facility] Leukocytes [#/volume] correc bill for nucleated erythrocytes in Blood by Automated counon 09-09-2023 WBC corrected for nucl RBC Auto (Bld) [#/Vol] 10.7 10 3/uL 4.0-11.0 [facility] Lymphocytes Auto (Bld) [#/Vo l]on 09-09-2023 Lymphocytes (Bld) [#/Vol] 1.5 10 3/uL 1.2-3.8 [facility] Lymphocytes/100 WBC Auto (Bl d)on 09-09-2023 Lymphocytes/100 WBC (Bld) 13.7 % 20.5-60.0 [facility] MCH Auto (RBC) [Entitic mass ]on 09-09-2023 MCH (RBC) [Entitic mass] 31.2 pg 26.7-34.0 [facility] MCHC Auto (RBC) [Mass/Vol]on 09-09-2023 MCHC (RBC) [Mass/Vol] 32.3 g/dL 29.9-35.2 [facility] MCV Auto (RBC) [Entitic vol] on 09-09-2023 MCV (RBC) [Entitic vol] 96.5 fL 81.0-99.0 [facility] Monocytes Auto (Bld) [#/Vol] on 09-09-2023 Monocytes (Bld) [#/Vol] 1.0 10 3/uL 0.3-0.8 [facility] Monocytes/100 WBC Auto (Bld) on 09-09-2023 Monocytes/100 WBC (Bld) 9.5 % 1.7-12.0 [facility] Mucus LM Ql (Urine sed)on Mucus Ql (Urine sed) NONE SEEN NONE SEEN [facility] Neutrophils Auto (Bld) [#/Vo l]on 09-09-2023 Neutrophils (Bld) [#/Vol] 8.0 10 3/uL 1.4-6.5 [facility] Neutrophils/100 WBC Auto (Bl d)on 09-09-2023 Neutrophils/100 WBC (Bld) 75.0 % 43.0-75.0 [facility] No Panel Informationon 09-08 Eosinophils # (Auto) 0.1 10 3/uL 0.0-0.7 [facility] Immature Granulocyte # (Auto) 0.03 10 3/uL 0.00-0.03 [facility] Urine Bacteria NONE SEEN #/HPF NONE SEEN [facility] Urine Culture Reflexed NO [facility] Urine Microscopic Review YES [facility] Urine Occult Blood LARGE NEGATIVE [facility] Urine Other Crystals Seen #/HPF None Seen [facility] Urine RBC 10-20 #/HPF 0-2 [facility] Urine Squamous Epithelial Cells NONE SEEN #/LPF NONE/RARE [facility] Urine Uric Acid Crystals FEW [facility] Urine WBC 2-5 #/HPF NONE SEEN [facility] Platelet mean volume Auto (B ld) [Entitic vol]on 09-09-2023 Platelet mean volume (Bld) [Entitic vol] 9.5 fL 9.5-13.5 [facility] Platelets Auto (Bld) [#/Vol] on 09-09-2023 Platelets (Bld) [#/Vol] 240 10 3/uL 150-450 [facility] RBC Auto (Bld) [#/Vol]on RBC (Bld) [#/Vol] 4.04 10 6/uL 4.20-5.40 [facility] Serum or plasma albumin/glob ulin mass ratioon 09-09-2023 Albumin/Globulin [Mass ratio] 1.0 {ratio} [facility] Serum or plasma anion gap de terminationon 09-09-2023 Anion gap [Moles/Vol] 10.7 mmol/L [facility] XR RIBS LT PA Stephen XR RIBS [...] by: PB GENAO Date: 2022-10-02 11:51 Normal [facility] XR CSPINE 2_3 VIEWSon 2022 [...] ISAEL GRIFFIN Date: 2022-09-05 15:58 Normal [facility] CBC AUTO DIFFon 12-31-2021 BASO # 0.0 103/ul Normal 0.0-0.1 [facility] Comment on above: Performed By: #### C BC #### [facility] [address] [place] [address] Dr. Radha Land Basophils/100 WBC (Bld) 0.2 % Normal 0.2-2.0 [facility] Comment on above: Performed By: #### C BC #### [facility] [address] [place] [address] Dr. Radha Land EO # 0.2 103/ul Normal 0.0-0.7 [facility] Comment on above: Performed By: #### C BC #### [facility] [address] [address] [address] Radha Land Eosinophils/100 WBC (Bld) 1.7 % Normal 0.9-7.0 [facility] Comment on above: Performed By: #### C BC #### [facility] [address] [place] [address] Dr. Radha Land Erythrocyte distribution width (RBC) [Ratio] 13.4 % Normal 11.0-15.0 [facility] Comment on above: Performed By: #### C BC #### [facility] [address] [place] [address] Dr. Radha Land Hematocrit (Bld) [Volume fraction] 40.9 % Normal 36.0-48.0 [facility] Comment on above: Performed By: #### C BC #### [facility] [address] [place] [address] Dr. Radha Land Hemoglobin (Bld) [Mass/Vol] 13.1 g/dL Normal 12.0-16.0 [facility] Comment on above: Performed By: #### C BC #### [facility] [address] [place] [address] Dr. Radha Land IG # 0.05 10e3/ul Critically high 0.00-0.03 [facility] Comment on above: Performed By: #### C BC #### [facility] [address] [place] [address] Dr. Radha Land IG % 0.4 % Normal 0.0-0.5 [facility] Comment on above: Performed By: #### C BC #### [facility] [address] [place] [address] Dr. Radha Land LYMPH # 1.4 103/ul Normal 1.2-3.8 [facility] Comment on above: Performed By: #### C BC #### [facility] [address] [place] [address] Dr. Radha Land Lymphocytes/100 WBC (Bld) 10.8 % Critically low 20.5-60.0 [facility] Comment on above: Performed By: #### C BC #### [facility] [address] [place] [address] Dr. Radha Land MANUAL DIFF REQ NO Normal [facility] Comment on above: Performed By: #### C BC #### [facility] [address] [place] [address] Dr. Radha Land MCH (RBC) [Entitic mass] 31.5 pg Normal 26.7-34.0 [facility] Comment on above: Performed By: #### C BC #### [facility] [address] [place] [address] Dr. Radha Land MCHC (RBC) [Mass/Vol] 32.0 g/dL Normal 29.9-35.2 [facility] Comment on above: Performed By: #### C BC #### [facility] [address] [place] [address] Dr. Radha Land MCV (RBC) [Entitic vol] 98.3 fL Normal 81.0-99.0 [facility] Comment on above: Performed By: #### C BC #### [facility] [address] [address] [address] Radha Land MONO # 1.3 103/ul Critically high 0.3-0.8 [facility] Comment on above: Performed By: #### C BC #### [facility] [address] [address] [address] Radha Land Monocytes/100 WBC (Bld) 9.7 % Normal 1.7-12.0 [facility] Comment on above: Performed By: #### C BC #### [facility] [address] [address] [address] Radha Land NEUT # 10.2 103/ul Critically high 1.4-6.5 [facility] Comment on above: Performed By: #### C BC #### [facility] [address] [place] [address] Dr. Radha Land Neutrophils/100 WBC (Bld) 77.2 % Critically high 43.0-75.0 [facility] Comment on above: Performed By: #### C BC #### [facility] [address] [place] [address] Dr. Radha Land Platelet mean volume (Bld) [Entitic vol] 9.7 fL Normal 9.5-13.5 [facility] Comment on above: Performed By: #### C BC #### [facility] [address] [place] [address] Dr. Radha Land PLT 235 103/ul Normal 150-450 [facility] Comment on above: Performed By: #### C BC #### [facility] [address] [place] [address] Dr. Radha Land RBC 4.16 106/ul Critically low 4.20-5.40 [facility] Comment on above: Performed By: #### C BC #### [facility] [address] [place] [address] Dr. Radha Land WBC 13.2 103/ul Critically high 4.0-11.0 [facility] Comment on above: Performed By: #### C BC #### [facility] [address] [place] [address] Dr. Radha Land SED RATE WESTERGRENon 2021 SED RATE 35 mm/hr Critically high <=30 [facility] Comment on above: Performed By: #### S EDR #### [facility] [address] [address] [address] Radha Land CBC AUTO DIFFon 11-07-2021 BASO # 0.0 103/ul Normal 0.0-0.1 [facility] Comment on above: Performed By: #### C BC ####[facility] [address] [address]DrHernandez Land Basophils/100 WBC (Bld) 0.3 % Normal 0.2-2.0 [facility] Comment on above: Performed By: #### C BC ####[facility] [address] [address]DrHernandez Land EO # 0.2 103/ul Normal 0.0-0.7 [facility] Comment on above: Performed By: #### C BC ####[facility] [address] [address]DrHernandez Land Eosinophils/100 WBC (Bld) 3.3 % Normal 0.9-7.0 [facility] Comment on above: Performed By: #### C BC ####[facility] [address] [id number] Land Erythrocyte distribution width (RBC) [Ratio] 13.2 % Normal 11.0-15.0 [facility] Comment on above: Performed By: #### C BC ####[facility] [address] [id number] Land Hematocrit (Bld) [Volume fraction] 41.9 % Normal 36.0-48.0 [facility] Comment on above: Performed By: #### C BC ####[facility] [address] [address]DrHernandez Land Hemoglobin (Bld) [Mass/Vol] 13.4 g/dL Normal 12.0-16.0 [facility] Comment on above: Performed By: #### C BC ####[facility] [address] [id number]. Radha Land IG # 0.01 10e3/ul Normal 0.00-0.03 [facility] Comment on above: Performed By: #### C BC ####[facility] [address] [id number]. Radha Land IG % 0.2 % Normal 0.0-0.5 [facility] Comment on above: Performed By: #### C BC ####[facility] [address] [id number]. Radha Land LYMPH # 1.6 103/ul Normal 1.2-3.8 [facility] Comment on above: Performed By: #### C BC ####[facility] [address] [address]Dr. Radha Land Lymphocytes/100 WBC (Bld) 27.5 % Normal 20.5-60.0 [facility] Comment on above: Performed By: #### C BC ####[facility] [address] [id number]. Radha Land MANUAL DIFF REQ NO Normal [facility] Comment on above: Performed By: #### C BC ####[facility] [address] [id number]. Radha Land MCH (RBC) [Entitic mass] 31.2 pg Normal 26.7-34.0 [facility] Comment on above: Performed By: #### C BC ####[facility] [address] [place], [place] [id number]. Radha Land MCHC (RBC) [Mass/Vol] 32.0 g/dL Normal 29.9-35.2 [facility] Comment on above: Performed By: #### C BC ####[facility] [address] [address]Dr. Radha Land MCV (RBC) [Entitic vol] 97.7 fL Normal 81.0-99.0 [facility] Comment on above: Performed By: #### C BC ####[facility] [address] [id number]. Radha Land MONO # 0.7 103/ul Normal 0.3-0.8 [facility] Comment on above: Performed By: #### C BC ####[facility] [address] [phone]. Radha Land Monocytes/100 WBC (Bld) 12.4 % Critically high 1.7-12.0 [facility] Comment on above: Performed By: #### C BC ####[facility] [address] [phone]. Radha Land NEUT # 3.2 103/ul Normal 1.4-6.5 [facility] Comment on above: Performed By: #### C BC ####[facility] [address] [place], [place] [address]Dr. Radha Land Neutrophils/100 WBC (Bld) 56.3 % Normal 43.0-75.0 [facility] Comment on above: Performed By: #### C BC ####[facility] [address] [address]Dr. Radha Land Platelet mean volume (Bld) [Entitic vol] 9.4 fL Critically low 9.5-13.5 [facility] Comment on above: Performed By: #### C BC ####[facility] [address] [phone]. Radha Land PLT 226 103/ul Normal 150-450 [facility] Comment on above: Performed By: #### C BC ####[facility] [address] [place], [place] [address]Dr. Radha Land RBC 4.29 106/ul Normal 4.20-5.40 [facility] Comment on above: Performed By: #### C BC ####[facility] [address] [address]Dr. Radha Land WBC 5.7 103/ul Normal 4.0-11.0 [facility] Comment on above: Performed By: #### C BC ####[facility] [address] [place], [place] [address]Dr. Radha Land LIPID PROFILEon 11-07-2021 CHOL-HDL RATIO NORM SEE BELOW Normal [facility] Comment on above: Result Comment: 3.3 - 4.4 LOW RISK 4.4 - 7.1 AVERAGE RISK 7.1 - 11.0 MODERATE RISK >11.0 HIGH RISK Performed By: #### L IPID, CMP #### [facility] [id number] Radha Land Cholesterol [Mass/Vol] 257 mg/dL Critically high <=200 [facility] Comment on above: Performed By: #### L IPID, CMP #### [facility] [id number] Radha Land Cholesterol in HDL [Mass/Vol] 76 mg/dL Critically high 40-60 [facility] Comment on above: Performed By: #### L IPID, CMP #### [facility] [address] [address] [address] Radha Land Cholesterol in LDL [Mass/Vol] 163.8 mg/dL Normal [facility] Comment on above: Performed By: #### L IPID, CMP #### [facility] [id number] Radha Land Cholesterol.total/Cho lesterol in HDL [Mass ratio] 3.4 {ratio} Normal [facility] Comment on above: Performed By: #### L IPID, CMP #### [facility] [id number] Radha Land HDL NORMAL > or = 60 mg/dl - LOW CARDIOVASCULAR RISK <40 mg/dl - HIGH CARDIOVASCULAR RISK Normal [facility] Comment on above: Performed By: #### L IPID, CMP #### [facility] [id number] Radha Land LDL CALC NORMAL SEE BELOW Normal [facility] Comment on above: Result Comment: <100 mg/dl OPTIMAL 100 - 129 mg/dl NEAR OR ABOVE OPTIMAL 130 - 159 mg/dl BORDERLINE HIGH 160 - 189 mg/dl HIGH >190 mg/dl VERY HIGH Performed By: #### L IPID, CMP #### [facility] [address] [place], [place] [address] Dr. Radha Land Triglyceride [Mass/Vol] 86 mg/dL Normal <=150 [facility] Comment on above: Performed By: #### L IPID, CMP #### [facility] [address] [place], [place] [address] Dr. Radha Land VLDL CALC 17.2 mg/dL Normal [facility] Comment on above: Performed By: #### L IPID, CMP #### [facility] [address] [place], [place] [address] Dr. Radha Land MG MAMM SCREEN 3D GIANCALRO CADon 11-07-2021 MG MAMM SCREEN 3D GIANCARLO CAD Patient: EDUARDO LEA Exam Date: 11/07/2021 : 1940 Gender:F Ordering : DR SAVANNA HIGGINS M.D. Admission #: [id number] Family : Order #: [id number] CLICK HERE TO VIEW EXAM RADIOLOGY REPORT [...] ovarian cancer at age 47. LOCATION: [facility] BREAST COMPOSITION: Extremely dense, which lowers the [...] MD on 11/07/2021 at 11:21 Normal [facility] PROF 14(COMP METB)on 022 Albumin [Mass/Vol] 3.6 g/dL Normal 3.4-5.0 [facility] Comment on above: Performed By: #### L IPID, CMP #### [facility] [address] [address] [address] Radha Land Albumin/Globulin [Mass ratio] 0.9 {ratio} Normal [facility] Comment on above: Performed By: #### L IPID, CMP #### [facility] [address] [address] [address] Radha Land ALP [Catalytic activity/Vol] 79 U/L Normal 46-116 [facility] Comment on above: Performed By: #### L IPID, CMP #### [facility] [address] [address] [address] Radha Land ALT [Catalytic activity/Vol] 32 U/L Normal 14-59 [facility] Comment on above: Performed By: #### L IPID, CMP #### [facility] [address] [address] [address] Radha Land Anion gap [Moles/Vol] 6.1 mmol/L Normal [facility] Comment on above: Performed By: #### L IPID, CMP #### [facility] [address] [address] [address] Radha Land AST [Catalytic activity/Vol] 28 U/L Normal 15-37 [facility] Comment on above: Performed By: #### L IPID, CMP #### [facility] [address] [address] [address] Radha Land Bilirubin [Mass/Vol] 0.6 mg/dL Normal 0.2-1.0 [facility] Comment on above: Performed By: #### L IPID, CMP #### [facility] [address] [address] [address] Radha Land Calcium [Mass/Vol] 9.1 mg/dL Normal 8.5-10.1 [facility] Comment on above: Performed By: #### L IPID, CMP #### [facility] [address] [address] [address] Radha Land Chloride [Moles/Vol] 104 mmol/L Normal 98-107 [facility] Comment on above: Performed By: #### L IPID, CMP #### [facility] [address] [address] [address] Radha Land CO2 [Moles/Vol] 31.0 mmol/L Normal 21.0-32.0 [facility] Comment on above: Performed By: #### L IPID, CMP #### [facility] [address] [address] [address] Radha Land Creatinine [Mass/Vol] 0.86 mg/dL Normal 0.55-1.02 [facility] Comment on above: Performed By: #### L IPID, CMP #### [facility] [address] [place] [address] Dr. Radha Land EGFR-AF GEORGIAN >60 Normal >=60 [facility] Comment on above: Performed By: #### L IPID, CMP #### [facility] [address] [place] [address] Dr. Radha Land EGFR-NON AF GEORGIAN >60 Normal >=60 [facility] Comment on above: Performed By: #### L IPID, CMP #### [facility] [address] [place] [address] Dr. Radha Land Globulin (S) [Mass/Vol] 4.1 g/dL Normal [facility] Comment on above: Performed By: #### L IPID, CMP #### [facility] [address] [address] [address] Radha Land Glucose [Mass/Vol] 89 mg/dL Normal 74-106 [facility] Comment on above: Performed By: #### L IPID, CMP #### [facility] [address] [address] [address] Radha Land Potassium [Moles/Vol] 4.1 mmol/L Normal 3.5-5.1 [facility] Comment on above: Performed By: #### L IPID, CMP #### [facility] [address] [address] [address] Radha Land Protein [Mass/Vol] 7.7 g/dL Normal 6.4-8.2 [facility] Comment on above: Performed By: #### L IPID, CMP #### [facility] [address] [address] [address] Radha Land Sodium [Moles/Vol] 137 mmol/L Normal 136-145 [facility] Comment on above: Performed By: #### L IPID, CMP #### [facility] [address] [address] [address] Radha Land Urea nitrogen [Mass/Vol] 12.0 mg/dL Normal 7.0-18.0 [facility] Comment on above: Performed By: #### L IPID, CMP #### [facility] [address] [place] [address] Dr. Radha Land Urea nitrogen/Creatinine [Mass ratio] 14.0 mg/mg Normal [facility] Comment on above: Performed By: #### L IPID, CMP #### [facility] [address] [place] [address] Dr. Radha Land Vital Signs Date Time Vital Sign Value Performing Clinician Facility 09-30-2023 14:31-0400 Body height 165.1 cm [facility] 09-30-2023 14:31-0400 Body mass index (BMI) [Ratio] 20.5 kg/m2 [facility] 09-30-2023 14:31-0400 Body weight 55.79 kg [facility] 09-30-2023 14:31-0400 Diastolic blood pressure 62 mm[Hg] [facility] 09-30-2023 14:31-0400 Heart rate 64 /min [facility] 09-30-2023 14:31-0400 Systolic blood pressure 104 mm[Hg] [facility] 09-17-2023 08:00-0400 Blood Pressure Location Roman GU[facility] 09-17-2023 08:00-0400 Diastolic blood pressure 80 mm[Hg] Roman GUAN [facility] 09-17-2023 08:00-0400 Heart rate 64 /min Roman GUAN [facility] 09-17-2023 08:00-0400 Systolic blood pressure 132 mm[Hg] Roman GUAN [facility] 01-10-2023 09:45-0400 Body height 165.1 cm Savanna Higgins Other [facility] Other 01-10-2023 09:45-0400 Body mass index (BMI) [Ratio] 20.87 kg/m2 Savanna Higgins Other [facility] Other 01-10-2023 09:45-0400 Body weight 56.88 kg Savanna Higgins Other [facility] Other 01-10-2023 09:45-0400 Diastolic blood pressure 78 mm[Hg] Savanna Higgins Other [employer] Other 01-10-2023 09:45-0400 Systolic blood pressure 142 mm[Hg] Savanna Higgins Other [employer] Other 10-28-2022 08:30-0400 Body height 165.1 cm Savanna Higgins Other [facility] Other 10-28-2022 08:30-0400 Body mass index (BMI) [Ratio] 20.47 kg/m2 Savanna Higgins Other [employer] Other 10-28-2022 08:30-0400 Body weight 55.79 kg Savanna Higgins Other [facility] Other 10-28-2022 08:30-0400 Diastolic blood pressure 47 mm[Hg] Savanna Higgins Other [employer] Other 10-28-2022 08:30-0400 Systolic blood pressure 124 mm[Hg] Savanna Higgins Other [employer] Other Encounters Encounter Date Encounter Type Care Provider Facility Start: 10-13-2023 ambulatory Romanarminda GUAN Facili ty:[facility] Start: 09-30-2023 End: 09-30-2023 ambulatory [facility] Work Phone: Start: 09-30-2023 End: 09-30-2023 Patient encounter procedure [facility] Work Phone: Start: 09-17-2023 End: 09-18-2023 ambulatory Roman GUAN Facility:[facility] Start: 09-17-2023 End: 09-17-2023 Patient encounter procedure Roman GU[facility] Start: 09-11-2023 ambulatory Roman GUAN Facility :[facility] Start: 09-09-2023 Non-patient / Non-visit [facility] Work Phone: Start: 08-26-2023 End: 08-26-2023 [facility] Work Phone: Start: 08-26-2023 End: 08-26-2023 Patient encounter procedure [facility] Work Phone: Start: 03-28-2023 End: 03-28-2023 ambulatory Savanna Higgins Other [employer] Other Start: 03-28-2023 Telephone encounter Savanna Higgins [facility] Start: 01-31-2023 End: 01-31-2023 ambulatory Savanna Higgins Other [employer] Other Start: 01-31-2023 Nursing evaluation o f patient and report Savanna Higgins [facility] Start: 01-14-2023 End: 01-14-2023 ambulatory Savanna Higgins Other [facility] Other Start: 01-14-2023 Telephone encounter Savanna Higgins [facility] Start: 01-10-2023 End: 01-10-2023 ambulatory Savanna Higgins Other [facility] Other Start: 01-10-2023 Office outpatient visit 15 minutes Savanna Higgins [facility] Start: 10-28-2022 End: 10-28-2022 ambulatory Savanna Higgins Other [facility] Other Start: 10-28-2022 Patient encounter procedure Savanna Higgins [facility] Start: 10-24-2022 End: 10-24-2022 ambulatory Savanna Higgins Other [facility] Other Start: 10-24-2022 Telephone encounter Savanna Higgins [facility] Start: 10-08-2022 End: 10-08-2022 ambulatory JA LEMIAARON . Facility:[facility] Start: 10-02-2022 End: 10-03-[address] SAVANNA HIGGNIS Facility:[facility] Start: 09-05-2022 End: 09-06-[address] SAVANNA HIGGINS Facility:[facility] Start: 09-05-2022 End: 09-06-[address] SAVANNA HIGGINS Facility:[facility] Start: 05-03-[address] SAVANNA HIGGINS Facil ity:[facility]1 Start: 03-26-[address] SAVANNA HIGGINS Facil ity:[facility]1 Start: 01-28-2022 End: 01-29-[address] SAVANNA HIGGINS Facility:[facility] Start: 01-07-2022 End: 01-08-[address] VALENTINA BECKER . Facility:[facility] Start: 12-31-2021 Adult health examination Savanna Higgins Other [facility] Other Start: 12-31-2021 End: 01-01-[address] SAVANNA HIGGINS Facility: Start: 12-25-2021 End: 12-26-[address] VALENTINA BECKER . Facility:[facility] Start: 12-19-2021 End: 12-20-[address] VALENTINA BECKER . Facility:[facility] Start: 11-07-2021 End: 11-08-[address] SAVANNA HIGGINS Facility: Procedures Date Procedure Procedure Detail Performing Clinician Start: 02-28-2014 right cataract extra ction with intraocular lens implantation Romanarminda GUAN Cataract extraction and insertion of intraocular lens Roman GUAN Comment on above: left eye cervical herniated d isc removed Roman GUAN Excision of bunion Roman SEVILLA Comment on above: bilateralwillard Hysterectomy and giancarlo ateral salpingo-oophorectomy sample (specimen) Roman GUAN Screening for malign ant neoplasm of breast Savanna Higgins Other stapidectomy 3 Roman Rothman Comment on above: right ear Plan of Treatment Date Care Activity Detail Author Patient Education Low back pain in adults [facility] Work Phone: Immunizations Immunization Date Immunization Notes Care Provider Fa cili 02-28-2022 influenza virus vaccine, split virus (incl. purified surface antigen) Savanna Higgnis Other [facility] Other 02-28-2022 influenza virus vaccine, unspecified formulation [facility] 02-27-2021 influenza virus vaccine, split virus (incl. purified surface antigen) Savanna Higgins Other [facility] Other 02-27-2021 influenza virus vaccine, unspecified formulation [facility] 02-16-2020 influenza virus vaccine, split virus (incl. purified surface antigen) Savanna Higgins Other [facility] Other 02-16-2020 influenza virus vaccine, unspecified formulation [facility] 10-25-2019 pneumococcal polysaccharide vaccine, 23 valent Savanna Higgins Other [facility] 03-10-2018 pneumococcal conjuga te vaccine, 13 valent Savanna Higgins Other [facility] 01-08-2017 influenza virus vaccine, split virus (incl. purified surface antigen) Savanna Higgins Other [facility] Other 01-08-2017 influenza virus vaccine, unspecified formulation [facility] 02-06-2016 influenza virus vaccine, split virus (incl. purified surface antigen) Savanna Higgins Other [facility] Other 02-06-2016 influenza virus vaccine, unspecified formulation [facility] 03-24-2015 influenza virus vaccine, split virus (incl. purified surface antigen) Savanna Higgins Other [facility] Other 03-24-2015 influenza virus vaccine, unspecified formulation [facility] 02-26-2013 tetanus and diphther ia toxoids, adsorbed, preservative free, for adult use (5 Lf of tetanus toxoid and 2 Lf of diphtheria toxoid) Savanna Higgins Other [facility] Payers Date Payer Category Payer Medicare [id number] 1960 Medicare [id number] 1940 Unknown [id number] 2.16.84 [id number] 1940 Unknown [id number] 2.16.84 0.1.785082.3.579.2.593 1940 Unknown [id number] 2.16.84 0.1.359455.3.579.2.593 1940 Unknown [id number] 2.16.84 0.1.751403.3.579.2.593 1940 Unknown [id number] 2.16.84 0.1.143237.3.579.2.593 1940 Unknown [id number] 2.16.84 0.1.273457.3.579.2.593 1940 Unknown [id number] 2.16.84 0.1.065606.3.579.2.593 1940 Unknown [id number] 2.16.84 0.1.184550.3.579.2.593 1940 Unknown [id number] 2.16.84 0.1.242903.3.579.2.593 1940 Unknown [id number] 2.16.84 0.1.361191.3.579.2.593 1940 Unknown [id number] 2.16.84 0.1.015381.3.579.2.593 1940 Unknown [id number] 2.16.84 0.1.848702.3.579.2.593 1940 Unknown [id number] 2.16.8 40.1.730521.3.579.2.727 1940 Unknown [id number] 2.16.8 40.1.170759.3.579.2.727 1940 Unknown [id number] 2.16.8 40.1.755425.3.579.2.727 Private Health Insurance [id number] Social History Date Type Detail Facility Unknown if ever smoked [facility] Other Sex Assigned At [facility] Start: 1940 Sex Ass[facility] Female [facility] Start: 09-17-2023 Tobacco smoking status Never s moked tobacco (finding) [facility] Tobacco smoking status Never [facility] Functional Status Date Assessment Result Facility 09-17-2023 Functional Status N/A [facility] Clinical Notes 12-19-2021 to 09-17-2023 Note Date & Type Note Facility 09-17-2023 Hospital Discharg e instructions Patient Education 09/17/2023 08:38:12 Kidney Stones Kidney Stones Kidney stones are solid, rock-like deposits that form inside of the kidneys. The kidneys are a pair of organs that make urine. A kidney stone may form in a kidney and move into other parts of the urinary tract, including the tubes that connect the kidneys to the bladder (ureters), the bladder, and the tube that carries urine out of the body (urethra). As the stone moves through these areas, it can cause intense pain and block the flow of urine. Kidney stones are created when high levels of certain minerals are found in the urine. The stones are usually passed out of the body through urination, but in some cases, medical treatment may be needed to remove them. What are the causes? Kidney stones may be caused by: A condition in which certain glands produce too much parathyroid hormone (primary hyperparathyroidism), which causes too much calcium buildup in the blood. A buildup of uric acid crystals in the bladder (hyperuricosuria). Uric acid is a chemical that the body produces when you eat certain foods. It usually leaves the body in the urine. Narrowing (stricture) of one or both of the ureters. A kidney blockage that is present at (congenital obstruction). Past surgery on the kidney or the ureters. What increases the risk? The following factors may make you more likely to develop this condition: Having had a kidney stone in the past. Having a family history of kidney stones. Not drinking enough water. Eating a diet that is high in protein, salt (sodium), or sugar. Being overweight or obese. What are the signs or symptoms? Symptoms of a kidney stone may include: Pain in the side of the abdomen, right below the ribs (flank pain). Pain usually spreads (radiates) to the groin. Needing to urinate often or urgently. Painful urination. Blood in the urine (hematuria). Nausea. Vomiting. Fever and chills. How is this diagnosed? This condition may be diagnosed based on: Your symptoms and medical history. A physical exam. Blood tests. Urine tests. These may be done before and after the stone passes out of your body through urination. Imaging tests, such as a CT scan, abdominal X-ray, or ultrasound. A procedure to examine the inside of the bladder (cystoscopy). How is this treated? Treatment for kidney stones depends on the size, location, and makeup of the stones. Kidney stones will often pass out of the body through urination. You may need to: Increase your fluid intake to help pass the stone. In some cases, you may be given fluids through an IV and may need to be monitored in the hospital. Take medicine for pain. Make changes in your diet to help prevent kidney stones from coming back. Sometimes, procedures are needed to remove a kidney stone. This may involve: A procedure to break up kidney stones using: ?A focused beam of light (laser therapy). ?Shock waves (extracorporeal shock wave lithotripsy). Surgery to remove kidney stones. This may be needed if you have severe pain or have stones that block your urinary tract. Follow these instructions at home: Medicines Take oguh-vey-ctzwbnn and prescription medicines only as told by your health care provider. Ask your health care provider if the medicine prescribed to you requires you to avoid driving or using heavy machinery. Eating and drinking Drink enough fluid to keep your urine pale yellow. You may be instructed to drink at least 8 10 glasses of water each day. This will help you pass the kidney stone. If directed, change your diet. This may include: ?Limiting how much sodium you eat. ?Eating more fruits and vegetables. ?Limiting how much animal protein you eat. Animal proteins include red meat, poultry, fish, and eggs. ?Eating a normal amount of calcium (1,000 1,300 mg per day). Follow instructions from your health care provider about eating or drinking restrictions. General instructions Collect urine samples as told by your health care provider. You may need to collect a urine sample: ?24 hours after you pass the stone. ?8 12 weeks after you pass the kidney stone, and every 6 12 months after that. Strain your urine every time you urinate, for as long as directed. Use the strainer that your health care provider recommends. Do not throw out the kidney stone after passing it. Keep the stone so it can be tested by your health care provider. Testing the makeup of your kidney stone may help prevent you from getting kidney stones in the future. Keep all follow-up visits. You may need follow-up X-rays or ultrasounds to make sure that your stone has passed. How is this prevented? To prevent another kidney stone: Drink enough fluid to keep your urine pale yellow. This is the best way to prevent kidney stones. Eat a healthy diet. Follow recommendations from your health care provider about foods to avoid. Recommendations vary depending on the type of kidney stone that you have. You may be instructed to eat a low-protein diet. Maintain a healthy weight. Where to find more information National Kidney Foundation (NKF): www.kidney.org Urology Care Foundation (F): www.urologyhealth.org Contact a health care provider if: You have pain that gets worse or does not get better with medicine. Get help right away if: You have a fever or chills. You develop severe pain. You develop new abdominal pain. You faint. You are unable to urinate. Summary Kidney stones are solid, rock-like deposits that form inside of the kidneys. Kidney stones can cause nausea, vomiting, blood in the urine, abdominal pain, and the urge to urinate often. Treatment for kidney stones depends on the size, location, and makeup of the stones. Kidney stones will often pass out of the body through urination. Kidney stones can be prevented by drinking enough fluids, eating a healthy diet, and maintaining a healthy weight. This information is not intended to replace advice given to you by your health care provider. Make sure you discuss any questions you have with your health care provider. Document Revised: 08/07/2022 Document Reviewed: 08/07/2022 [employer] Patient Education 2022 [employer]. Follow Up Care 09/11/2023 08:49:49 With:SHANNON SALGUERO, Roman Mitchell, URL Address: [facility] [address] , [place] [address]- When: Unknown [facility] 01-31-2023 Evaluation note Encounter Date Diagnosis Assessment Notes Jan, Seasonal allergic rhinitis, unspecified trigger (ICD-10 - J30.2) [facility] Other 09-01-2023 Evaluation note* Encounter Date Diagnosis Assessment Notes Treatment Notes Treatment Clinical Notes Jan, Piriformis syndrome of left side (ICD-10 - G57.02) Unable to add more tramadol - likely has pain clinic w [facility]. PT order printed. Add steroids. Also gave copies of home exercises. [facility] Other 06-19-2023 Evaluation note* Encounter Date Diagnosis Assessment Notes Treatment Notes Treatment Clinical Notes Oct, Medicare annual wellness visit, subsequent [...] - order handwritten and given to pt [facility] Other 04-27-2023 NoteCONSULTATION CONSULTATION DATE: 09/05/2022 TO: Savanna Higgins M.D. HISTORY: Patient is seen today, complaining [...] our patients to inform us about any zafw-nmw-aykhrfg medications or herbal remedies/nutritional supplements/alternative remedies. 2. [...] and treatment options with their primary care provider.[id number] Note CONSULTATION PROCEDURE DATE: 12/25/2021 PREOPERATIVE DIAGNOSIS: [...] Post procedurally range of motion exercises are performed.[facility] 12-19-2021 NoteCONSULTATION CONSULTATION DATE: 12/19/2021 This is a very [...] where she was seen by the physician assistant foreman in the office and received left glenohumeral [...] the plan of care, to be contacted [facility] Future Appointments Appointment Date:10/13/2023 12:15:00 PM Scheduled Provider:Roman GUAN MD Location:[facility] Appointment Type:URO Office Visit [facility] Evaluation [facility]No [facility] Other Evaluation noteNo assessment information available [facility] Work Phone: Evaluation note* Diagnosis Onset Date Resolution Status Right lumbar pain acute [facility] Work Phone: History general Narrative - Reported* Type Description Date Medical History migraine headache Medical History dizziness Medical History tremors Surgical History hysterectomy Surgical History bunionectomy Surgical History stapedectomy Hospitalization History see above [facility] Other Hospital course Narrative No data available for this section [facility] Progress note No data available for this section [facility] Summary Purpose Family History No Family History Records Found Relationship Condition Age at Onset Recorded Date/T julia father Unknown family member Unknown Not Specified Unknown Advance Directives No Advanced Directives Records Found Advance Directive Response Recorded Date/ Time Advance Directives No August 25 024 10:55am Chief Complaint and Reason for Visit Chief Complaint allergy shot Chief Complaint allergy shot check up Reason for Visit Right lumbar pain Additional Source Comments INFORMATION SOURCE (unrecogn ized section and content) DATE CREATED AUTHOR 10/18/2022 [facility] DATE CREATED AUTHOR AUTHOR'S ORGANIZ ATION 10/04/2023 [facility] REASON FOR VISIT (unrecogniz ed section and content) RefillWellnessHip Painlumbar xrayAllergy ShotAllergy Shotrefill Care Teams (unrecognized sec tion and content) Team Status: Active Member Role Status Dates Savanna Higgins MD Primary Care Provider Active Team Status: Inactive Member Role Status Dates Savanna Higgins MD Primary Care Provide r, Attending Provider Active Start: August 26, 2023 End: August 26, 2023 Team Status: Active Member Role Status Dates Savanna Higgins MD Primary Care Provide r, Attending Provider Active Start: September 09, 2023 Team Status: Inactive Member Role Status Dates Savanna Higgins MD Primary Care Provide r, Attending Provider Active Start: September 30, 2023 End: September 30, 2023 Goals (unrecognized section and content) Goals [...] BE BASED ON THE PRIMARY CLINICAL RECORDS. [facility] [employer] [facility]. provides no warranty or guarantee of the accuracy or completeness of information in this document.
--- NOTE | 2023-10-10 07:34 | XR_ITS ---
The [address] [address] Patient Name: EDUARDO LEA MRN: [id number] date: 1940 Sex: F Assigned Patient Location: [facility] Current Patient Location: [facility] Accession/Order Number: [id number] Exam Date: 10/10/2023 07:28 Report Date: 10/10/2023 08:00 At the request of: STAN ORTEGA Procedure: XR abdomen 1V EXAMINATION: XR abdomen 1V HISTORY: Kidney Stone N20.0 COMPARISON: No relevant comparison available. FINDINGS: KIDNEY/URETER - RIGHT: Personally seen large calcification now appears as 2 separate calcifications within inferior pole, 5 mm and 6 mm in size. KIDNEY/URETER - LEFT: No convincing renal or ureteral stones. Stable round calcification projecting near superior aspect of left sacroiliac joint is unchanged and favors a phlebolith. PELVIS: No visible ureteral stones. BOWEL: No abnormal dilation or deviation. BONES: No acute abnormality. OTHER: Scoliosis. Unremarkable bowel. XR/XR abdomen 1V IMPRESSION: 1. Fragmentation of previously seen large right kidney stone with a 5 mm and a 6 mm stone now projecting over the lower pole of the kidney. 2. No appreciable ureteral stones. Electronically authenticated by: PB GENAO Date: 10/10/2023 08:00
== END 2023-10-10 07:09 | disposition home or self-care (01) ==
LOC: LAB 07:11 → RAD 07:13
PROVIDERS: PCP Family Medicine; Visit Provider Urology
DX: N20.0 Calculus of kidney (principal)
CPT/HCPCS: 74018

== ENCOUNTER 2023-10-14 14:25 | Outpatient (OUT) | payer MEDICARE, SELFPAY ==
--- NOTE | 2023-10-14 14:28 | CT_ITS ---
The [address] [address] Patient Name: EDUARDO LEA MRN: [id number] date: 1940 Sex: F Assigned Patient Location: CT Current Patient Location: Accession/Order Number: [id number] Exam Date: 10/14/2023 14:35 Report Date: 10/15/2023 07:21 At the request of: STAN ORTEGA Procedure: CT abdomen pelvis wo con EXAM: CT abdomen pelvis wo con HISTORY: Kidney Stone COMPARISON: CT abdomen and pelvis 09/09/2023.. TECHNIQUE: Axial soft tissue windows of the abdomen and pelvis with coronal and sagittal reformats. CT dose reduction technique was used including Automated Exposure Control. Findings: Lack of intravenous contrast limits evaluation. ABDOMEN: Benign hepatic calcifications. The spleen, pancreas, and adrenal glands are unremarkable. There is a 0.7 cm stone within the gallbladder. Off the upper pole of the left kidney is a 1.5 cm cyst. No renal stones. No right-sided collecting system dilatation. Mild left pelviectasis. The bilateral ureters are nondilated. Evaluation of the bowel is limited given the absence of oral contrast. There are colonic diverticula. No bowel obstruction. The appendix is not definitely identified. The aorta is normal caliber. Mild atherosclerotic disease. No enlarged abdominal lymph nodes or free abdominal fluid. Tiny fat-containing umbilicus hernia. Pelvis: Near the left ureterovesicular junction there is a 0.5 cm stone. The uterus is surgically absent. No enlarged pelvic lymph nodes or free pelvic fluid. No aggressive sclerotic or lytic osseous lesions. Grade 1 anterolisthesis of L4 on L5. Multilevel degenerative spondylosis. Mild levoconvex scoliosis. CT/CT abdomen pelvis wo con IMPRESSION: 1. Mild left-sided pelvocaliectasis. This likely relates to a recently passed stone as there is a stone within the bladder near the left ureterovesicular junction. 2. Cholelithiasis. 3. Other nonemergent findings, as described above. Electronically authenticated by: MADINA DOBBS Date: 10/15/2023 07:21
== END 2023-10-14 14:26 | disposition home or self-care (01) ==
LOC: CT 14:25
PROVIDERS: PCP Family Medicine; Visit Provider Urology
DX: N20.0 Calculus of kidney (principal); K80.20 Calculus of gallbladder without cholecystitis without obstruction
CPT/HCPCS: 74176

== ENCOUNTER 2023-11-06 11:57 | Outpatient (OUT) | payer MEDICARE, SELFPAY ==
--- NOTE | 2023-11-06 | XR_ITS ---
The [address] [address] Patient Name: EDUARDO LEA MRN: [id number] date: 1940 Sex: F Assigned Patient Location: [facility] Current Patient Location: [facility] Accession/Order Number: [id number] Exam Date: 11/06/2023 12:05 Report Date: 11/06/2023 13:58 At the request of: RUBA HIGGINS Procedure: XR abdomen 1V EXAMINATION: XR abdomen 1V HISTORY: calculus of kidney COMPARISON: No relevant comparison available. FINDINGS: KIDNEY/URETER - RIGHT: Stable right nephrolithiasis KIDNEY/URETER - LEFT: No visible renal or ureteral calcifications. PELVIS: No visible ureteral calcifications. Any visible calcifications favor phleboliths. BOWEL: No abnormal dilation or deviation. BONES: No acute abnormality. Rotatory levoscoliosis. Moderate degenerative changes of the spine. OTHER: Negative. No abnormal gaseous collections. XR/XR abdomen 1V IMPRESSION: Stable right nephrolithiasis Electronically authenticated by: MINE GARCIA Date: 11/06/2023 13:58
--- OUTSIDE RECORDS SUMMARY | 2023-11-06 12:08 | XMS_ITS | CCD ---
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 Name Role Phone GISELA, DR SAVANNA Willis [...] ., NARPAULINA Admitting Jessy vailable LAKSHMIPATHY ., NARJOSHUAATH Consulting Jessy vailable LAKSHMIPATHY ., AJ Attending Jessy vailable HIGGINS, DR SAVANNA Willis Primary Care Unavailable HIGGINS, DR SAVANNA Willis Primary Care Unavailable HIGGINS, DR SAVANNA Willis Attending Unavailable SUM[place] ARGO, DR MINE Barriga Consulting Unavailable GISELA, DR SAVANNA Willis Admitting Unavailable HIGGINS, DR SAVANNA Willis Consulting Unavailable HIGGINS, DR SAVANNA Willis Attending Unavailable HIGGINS, DR SAVANNA Willis Admitting Unavailable BIRGIT, DR PB Mitchell Consulting Unavailable HIGGINS, DR SAVANNA Willis Primary Care Unavailable GISELA, DR SAVANNA Willis Consulting Unavailable GISELA, DR SAVANNA Willis Primary Care Unavailable LAKSHMIPATHY ., AJ Attending Jessy vailable LAKSHMIPATHY ., NARENDRANATH Admitting Jessy vailable LAKSHMIPATHY ., NARENDLOWELLATH Consulting Jessy vailable ISAEL GRIFFIN Consulting Unavailable GISELA, DR SAVANNA Willis Primary [...] SAVANNA Willis Primary Care Unavailable HIGGINS, DR SVAANNA Willis Consulting Unavailable VALERA ., JOLYNN Consulting [...] Sig (Original) atenolol 50 mg oral tablet (4 sources) beta-Adrenergic Tera Start: 09-17-2023 take 50 mg by mouth once daily Atenolol Active 50 MG PO Daily September 29, 2023 12:00am Start: 03-28-2023 take 1 tablet by christian th every twenty-four hours Atenolol 50 MG 1 tablet Orally Once a day for 90 days Mar, Active Caltrate (1 source) Start: 09-17-2023 take 1 mg by mouth once daily Caltrate mg, Oral, Daily, Refills(s) 0 Start Date: 09/17/23 Status: Ordered Caltrate 600 with D (2 sources) Start: 02-19-2010 Caltrate 600 w ith D 1 tab(s), Oral, Daily, Refill(s) 0, Prophylaxis Start Date: 02/19/10 Status: Ordered Osteo Bi-Flex (2 sources) Start: 09-17-2023 Osteo Bi-Flex Refill(s) 0 Start Date: 09/17/23 Status: Ordered diclofenac potassium 25 mg oral tablet (10 sources) Nonsteroidal Anti-inflammatory Drug Start: 09-29-2023 take [...] Four times a day Active Fish Oils (2 sources) Start: 02-19-2010 take 1 tablet by mouth once daily [place]-3 Fish Oil 1 tab, Oral, Daily, Refill(s) 0, Prophylaxis Start Date: 02/19/10 Status: Ordered meclizine hydrochloride 25 mg oral tablet (9 sources) Antiemetic Start: 09-17-2023 meclizine 25 m [...] 1 tablet by mouth once Methylprednisolone (Medrol (Herb)) 4 mg tablets,dose pack Active 0 PO per package directions September 30, 2023 12:00am PO PER PKG DIR for 6 days Misc Medication (1 source) Start: 02-28-2014 take 1 tablet by mouth once daily Misc Medication one tab, Oral, Daily Start Date: 02/28/14 Status: Ordered Multiple Vitamins oral capsule (2 sources) Start: 02-19-2010 take 1 capsule by mouth [...] Active tamsulosin hydrochloride 0.4 mg oral capsule (2 sources) alpha-Adrenergic Tera Start: 09-17-2023 End: 10-17-2023 take 1 capsule by mouth once daily Flomax 0.4 mg Cap 0.4 mg = 1 cap(s), Oral, Daily, Stop taking if experiencing dizziness or lightheadedness., X 30 day(s), # 30 cap(s), Refills(s) 0, Pharmacy: [facility]/pharmacy #[id number], 56.1, kg, 09/17/23 8:03:00 EDT, Weight Dosing Start Date: 09/17/23 Stop Date: 10/17/23 Status: Ordered tiZANidine 2 mg oral tablet (1 source) Central alpha-2 Adrenergic Agonist Start: 09-30-2023 take 2 mg by mouth every eight hours Tizanidine Active 2 MG PO Every 8 hours September 30, 2023 12:00am traMADol (5 sources) Opioid Agonist traMADol HCl Act marysol ZOLMitriptan 5 mg oral tablet (2 sources) Serotonin-1b and Serotonin-1d Receptor Agonist Start: 02-19-2010 [...] Documented Date Episodic/Chronic Calculus of urinary tract (7 sources) Ureteric stone; Translations: [Calculus of ureter] Onset: 09-17-2023 Episodic Cataract (2 sources) Cataract 02-28-2014 Chronic Conditions associated with dizziness or vertigo (2 sources) Meniere's disease 02-28-2014 Chronic Disorders of lipid metabolism (12 sources) Pure hypercholesterolemia; Translations: [Pure hypercholesterolemia, unspecified] Onset: 09-16-2013 02-28-2014 Chronic Essential hypertension (8 sources) Essential (primary) hypertension; Translations: [Essential hypertension] Onset: 11-09-2021 Chronic Headache; including migraine (2 sources) Migraine 02-28-2014 Chronic Immunizations and screening for [...] Cervicalgia; Translations: [Lumbago] Onset: 09-05-2022 Episodic Unclassified (2 sources) tremors 1 02-28-2014 Comment on above: involuntary [...] Test Name Value Interpretation Reference Range Facility RAD - CT Reporton 10-15-2023 [address] - [address] Report [id number]# 1.00TIFF [facility] Ambulatory Visit Summaryon 0 10-13-2023 Ambulatory Visit Summary EDUARDO LEA :1940 Visit Date:10/13/2023 Ambulatory Visit Instructions Your Diagnosis Kidney stones History of kidney stones Tests Performed CT Abdomen/Pelvis w/o Contrast -- Results Pending -- Please visit your patient portal for your results or contact your primary care physician. Your Care Team Attending Physician - SHANNON SALGUERO, Roman Mitchell Primary Care Physician - SAVANNA HIGGINS MD This Is Your Medications List Contact prescribing physician if questions or concerns atenolol (atenolol 50 mg Tab) calcium-vitamin D (Caltrate 600 with D) chondroitin-glucosam ine (Osteo Bi-Flex) diclofenac (diclofenac sodium 50 mg Oral EC Tab) meclizine (meclizine 25 mg Tab) multivitamin (Multiple Vitamins oral capsule) omega-3 polyunsaturated fatty acids ([place]-3 Fish Oil) tamsulosin (Flomax 0.4 mg Cap) zolmitriptan (Zomig 5 mg oral tablet) Procedures Performed right cataract extraction with intraocular lens implantation (02/28/2014), Bunionectomy, Cataract extraction and insertion of intraocular lens, cervical herniated disc removed, Hysterectomy and bilateral salpingo-oophorectom y sample, stapidectomy. Discharge Vitals Heart Rate (Peripheral) 80 Respiratory Rate 16 Blood Pressure 134/78 Height 165 cm Height 65 in Weight 57 kg Weight 125.4 lb BMI 20.94 What to do next You Need to Schedule the Following Appointments Follow Up with SHANNON SALGUERO, JJ Rucker When: Where: [facility] [address], [place] [address] [phone] Medications What How Much When Instructions Unchanged atenolol (atenolol 50 mg Tab) 1 Tablets By Mouth Every day Contact prescribing physician if questions or concerns Unchanged calcium-vitamin D (Caltrate 600 with D) 1 Tablets By Mouth Every day Contact prescribing physician if questions or concerns Unchanged chondroitin-glucosam ine (Osteo Bi-Flex) Contact prescribing physician if questions or concerns Unchanged diclofenac (diclofenac sodium 50 mg Oral EC Tab) 1 Tablets By Mouth Contact prescribing physician if questions or concerns Unchanged meclizine (meclizine 25 mg Tab) 1 Tablets By Mouth Contact prescribing physician if questions or concerns Unchanged multivitamin (Multiple Vitamins oral capsule) 1 Capsules By Mouth Every day Contact prescribing physician if questions or concerns Unchanged omega-3 polyunsaturated fatty acids ([place]-3 Fish Oil) 1 tab By Mouth Every day Contact prescribing physician if questions or concerns Unchanged tamsulosin (Flomax 0.4 mg Cap) 1 Capsules By Mouth Every day Duration: 30 Days Stop taking if experiencing dizziness or lightheadedness. Contact prescribing physician if questions or concerns Unchanged zolmitriptan (Zomig 5 mg oral tablet) 1 Tablets By Mouth Once as needed for for migraine headache Contact prescribing physician if questions or concerns Allergies No Known Allergies Problems Ongoing - Any problem that you are currently receiving treatment for. History of kidney stones Hypercholesterolemia Kidney stones Left ureteral stone Meniere disease migraine headache tremors Patient Survey You may receive a survey via text or e-mail asking about your office visit. Please share your experience with us by completing your survey. We appreciate your feedback and thank you for choosing us for your care. Education Materials Kidney Stones Kidney stones are rock-like masses that form inside of the kidneys. Kidneys are organs that make pee (urine). A kidney stone may move into other parts of the urinary tract, including: ? The tubes that connect the kidneys to the bladder (ureters). ? The bladder. ? The tube that carries urine out of the body (urethra). Kidney stones can cause very bad pain and can block the flow of pee. The stone usually leaves your body (passes) through your pee. You may need to have a doctor take out the stone. What are the causes? Kidney stones may be caused by: ? A condition in which certain glands make too much parathyroid hormone (primary hyperparathyroidism) . ? A buildup of a type of crystals in the bladder made of a chemical called uric acid. The body makes uric acid when you eat certain foods. ? Narrowing (stricture) of one or both of the ureters. ? A kidney blockage that you were born with. ? Past surgery on the kidney or the ureters, such as gastric bypass surgery. What increases the risk? You are more likely to develop this condition if: ? You have had a kidney stone in the past. ? You have a family history of kidney stones. ? You do not drink enough water. ? You eat a diet that is high in protein, salt (sodium), or sugar. ? You are overweight or very overweight (obese). What are the signs or symptoms? Symptoms of a kidney stone may include: ? Pain in the side of the belly, right below the ribs (flank pain). Pain usually spreads (radiates) to the groin. (more content not included)... [facility] Patient Educationon 10-13-19 24 Patient Education Urology Kidney Stones Kidney stones are rock-like masses that form inside of the kidneys. Kidneys are organs that make pee (urine). A kidney stone may move into other parts of the urinary tract, including: ? The tubes that connect the kidneys to the bladder (ureters). ? The bladder. ? The tube that carries urine out of the body (urethra). Kidney stones can cause very bad pain and can block the flow of pee. The stone usually leaves your body (passes) through your pee. You may need to have a doctor take out the stone. What are the causes? Kidney stones may be caused by: ? A condition in which certain glands make too much parathyroid hormone (primary hyperparathyroidism) . ? A buildup of a type of crystals in the bladder made of a chemical called uric acid. The body makes uric acid when you eat certain foods. ? Narrowing (stricture) of one or both of the ureters. ? A kidney blockage that you were born with. ? Past surgery on the kidney or the ureters, such as gastric bypass surgery. What increases the risk? You are more likely to develop this condition if: ? You have had a kidney stone in the past. ? You have a family history of kidney stones. ? You do not drink enough water. ? You eat a diet that is high in protein, salt (sodium), or sugar. ? You are overweight or very overweight (obese). What are the signs or symptoms? Symptoms of a kidney stone may include: ? Pain in the side of the belly, right below the ribs (flank pain). Pain usually spreads (radiates) to the groin. ? Needing to pee often or right away (urgently). ? Pain when going pee (urinating). ? Blood in your pee (hematuria). ? Feeling like you may vomit (nauseous). ? Vomiting. ? Fever and chills. How is this treated? Treatment depends on the size, location, and makeup of the kidney stones. The stones will often pass out of the body through peeing. You may need to: ? Drink more fluid to help pass the stone. In some cases, you may be given fluids through an IV tube put into one of your veins at the hospital. ? Take medicine for pain. ? Make changes in your diet to help keep kidney stones from coming back. Sometimes, medical procedures are needed to remove a kidney stone. This may involve: ? A procedure to break up kidney stones using a beam of light (laser) or shock waves. ? Surgery to remove the kidney stones. Follow these instructions at home: Medicines ? Take rxod-qcb-kehfvho and prescription medicines only as told by your doctor. ? Ask your doctor if the medicine prescribed to you requires you to avoid driving or using heavy machinery. Eating and drinking ? Drink enough fluid to keep your pee pale yellow. You may be told to drink at least 8?10 glasses of water each day. This will help you pass the stone. ? If told by your doctor, change your diet. This may include: ? Limiting how much salt you eat. ? Eating more fruits and vegetables. ? Limiting how much meat, poultry, fish, and eggs you eat. ? Follow instructions from your doctor about eating or drinking restrictions. General instructions ? Collect pee samples as told by your doctor. You may need to collect a pee sample: ? 24 hours after a stone comes out. ? 8?12 weeks after a stone comes out, and every 6?12 months after that. ? Strain your pee every time you pee (urinate), for as long as told. Use the strainer that your doctor recommends. ? Do not throw out the stone. Keep it so that it can be tested by your doctor. ? Keep all follow-up visits as told by your doctor. This is important. You may need follow-up tests. How is this prevented? To prevent another kidney stone: ? Drink enough fluid to keep your pee pale yellow. This is the best way to prevent kidney stones. ? Eat healthy foods. ? Avoid certain foods as told by your doctor. You may be told to eat less protein. ? Stay at a healthy weight. Where to find more information ? National Kidney Foundation (NKF): www.kidney.org ? U[employer] (UCF): www.urologyhealth.or g Contact a doctor if: ? You have pain that gets worse or does not get better with medicine. Get help right away if: ? You have a fever or chills. ? You get very bad pain. ? You get new pain in your belly (abdomen). ? You pass out (faint). ? You cannot pee. Summary ? Kidney stones are rock-like masses that form inside of the kidneys. ? Kidney stones can cause very bad pain and can block the flow of pee. ? The stones will often pass out of the body through peeing. ? Drink enough fluid to keep your pee pale yellow. This information is not intended to replace advice given to you by your health care provider. Make sure you discuss any questions you have with your health care provider. Document Revised: 12/31/2021 Document Reviewed: 12/31/2021 Elsevier Patient Education ? 2022 [employer] [facility] Urology Office/Clinic Noteon 10-13-2023 Urology Office/Clinic Note Chief Complaint 4wk KUB HPI Staff 3 week f/u with KUB Dx: left ureteral stone Flomax 0.4mg qd KUB 10/10/23 Has not been straining urine. Has not passed stone. Still getting frequent urge to void (q15min). Denies difficulty urinating. Denies pain/burning and visible blood in urine. Denies flank pain. History of Present Illness Tests reviewed: reviewed KUB I have reviewed the previous health record information and history for this patient from Dr. Guan. I have reviewed and verified the staff HPI to be accurate for this encounter. Review of Systems PHQ Score Initial [...] HPI. Physical Exam Vitals & Measurements HR: 80(Peripheral) RR: 16 BP: 134/78 HT: 65 in HT: 165 cm WT: 57 kg WT: 125.4 lb BMI: 20.94 General Appearance: alert , no acute distress, well nourished, well developed female. Assessment/Plan 1. Kidney stones (N20.0: Calculus of kidney) CT AP wo con 09/09/23 - 4 mm obstructing stone mid L ureter, moderate L sided hydroureteronephrosi s. No R sided renal or ureteral stones. No bladder stones. KUB 09/15/23 - 4 mm calcification projection suspected to be w/in mid L ureter likely representing none to minimal progression of previously seen L ureteral stone. KUB 10/10/23 TBH - Previously seen large calcification now appears as two separate calcifications within RIP, 5mm and 6mm. No convincing L renal or ureteral stones. Stable round calcification projecting near superior aspect of L sacroiliac joint is unchanged and favors a phlebolith. Has persistent R lower back pain that does not radiate (appears to be related to hip). PCP rx'd prednisone which she finished taking yesterday, had relief. Again discussed pain appears to be unrelated to stone. Denies gross hematuria. No sample provided for UA today. Started having increased frequency since noted stone. Reviewed recent KUB. Advised pt it is unclear whether left-sided stone is in the ureter. However sxs appear to be related. Discussed getting a more detailed imaging study. Pt is agreeable. -Schedule CT AP wo con 2. History of kidney stones (Z87.442: Personal history of urinary calculi) Previously had a stone that she was unable to pass, required surgery 2 years ago in [place], [place]. Was told at this time that she had a puncture in her kidney that would heal. Follow-up With When Contact Information SHANNON SALGUERO, Roman Mitchell, URL [facility] [address], [place] [address] [phone] Additional Instructions: f/u pending CT scan Patient Education Kidney Stones, Zadh-ed-[id number] I, Anabella Villalta, personally scribed for Dr. Guan on 10/13/2023 13:39:26. . Documentation recorded by the scribe, Anabella Villalta, accurately reflects the services(s) I performed and decisions made by me. Authenticated by Dr. Guan on 10/13/2023 13:41:24. Problem List/Past Medical History Ongoing History of kidney stones Hypercholesterolemia Kidney stones Left ureteral stone Meniere disease migraine headache tremors Historical No qualifying data Procedure/Surgical History right cataract extraction with intraocular lens implantation (02/28/2014), Bunionectomy, Cataract extraction and insertion of intraocular lens, cervical herniated disc removed, Hysterectomy and bilateral salpingo-oophorectom y sample, stapidectomy. Medications atenolol 50 mg Tab, 50 mg= 1 tab(s), Oral, Daily Caltrate 600 with D, 1 tab(s), Oral, Daily diclofenac sodium 50 mg Oral EC Tab, 50 mg= 1 tab(s), Oral Flomax 0.4 mg Cap, 0.4 mg= 1 cap(s), Oral, Daily meclizine 25 mg Tab, 25 mg= 1 tab(s), Oral Multiple Vitamins oral capsule, 1 cap(s), Oral, Daily [place]-3 Fish Oil, 1 tab, Oral, Daily Osteo Bi-Flex Zomig 5 mg oral tablet, 1 tab(s), Oral, Once, PRN Allergies No Known Allergies Social History Alcohol - Denies Alcohol Use, 02/19/2010 Substance Abuse - Denies Substance Abuse, 02/19/2010 Tobacco - Denies Tobacco Use, 02/19/2010 Never (less than 100 in lifetime) Tobacco Use:. Never Smokeless Tobacco Use:., 10/13/2023 Family History Ovarian cancer: Mother. Immunizations Vaccine Date Status Comments influenza virus vaccine, inactivated 02/14/2023 Recorded SARS-CoV-2 (COVID-19) [id number] 03/12/2022 Recorded 2023-10-13: TPV80 influenza virus vaccine, inactivated 02/28/2022 Recorded SARS-CoV-2 (COVID-19) mRNA-1273 vaccine 11/09/2021 Recorded 2023-10-13: TPV80 SARS-CoV-2 (COVID-19) mRNA-12 (more content not included)... [facility] Comment on above: Result Comment: Elec tronically Signed By: Roman GUAN MD\.br\Date and Time Signed: 10/13/23 13:41 EDT\.br\Electronically Co-Signed By: Anabella Villalta\.br\Date and Time Co-Signed: 10/13/23 13:39 EDT RAD - MISCon 10-12-2023 RAD - MISC [id number] #1.00TIFF [facility] ED Note-Physicianon 09-18-19 ED Note-Physician [id number] 8#1.00TIFF [facility] Formson 09-18-2023 Forms [id number] #1.00TIFF [facility] RAD - CT Reporton 09-18-2023 [address] - CT Report [id number] 8#1.00TIFF [facility] RAD - MISCon 09-18-2023 [facility] [id number] 1#1.00TIFF [facility] [id number]# 1.00TIFF [facility] [id number] 9#1.00TIFF [facility] Ambulatory Visit Summaryon 0 09-17-2023 Ambulatory Visit [...] physician if questions or concerns Non-Formulary Medication ([facility] Medication) atenolol (atenolol 50 mg Tab) calcium carbonate (Caltrate) calcium-vitamin D (Caltrate 600 with D) chondroitin-glucosam ine (Osteo Bi-Flex) diclofenac (diclofenac sodium 50 mg Oral EC Tab) meclizine (meclizine 25 mg Tab) multivitamin (Multiple Vitamins oral capsule) omega-3 polyunsaturated fatty acids ([place]-3 Fish Oil) zolmitriptan (Zomig 5 mg oral [...] SALGUERO, Roman Mitchell Where: [facility] Patient Educationon 09-17-19 Patient Education Urology Kidney [...] these instructions at home: Medicines ? Take pgcn-ire-hkmjinu and prescription medicines only as told by [...] recommendations from (more content not included)... [facility] Urology Office/Clinic Noteon 09-17-2023 Urology Office/Clinic Note Chief Complaint New pt HPI Staff 1 week follow up w/KUB-09/15/23-[facility] Pt was seen at [facility] on 09/09/[address] to [address] [...] yo female new pt following up to [facility] ED visit 09/09/23 due to intermittent L [...] pass, required surgery 2 years ago in [place]. Was told at this time that [...] [address] ct[address] SEs discussed. Rx sent to [facility]. -High fluid intake. -Pt to call or go to the ER if he were to experience fever, shaking, chills, uncontrolled nausea, vomiting, or pain. Follow-up With When Contact Information SHANNON SALGUERO, Roman Mitchell, URL [facility] [address], [place] [address]- Additional Instructions: 3 weeks with KUB Patient [...] Vitamins oral capsule, 1 cap(s), Oral, Daily [place]-3 Fish Oil, 1 tab, Oral, Daily Osteo [...] Lab Results (more content not included)... [facility] Comment on above: Result Comment: Elec tronically Signed By: Roman GUAN MD\.br\Date and Time Signed: 09/17/23 08:41 EDT\.br\Electronically Co-Signed By: Cynthia Jones\.br\Date and Time Co-Signed: 09/17/23 08:39 EDT Basophils Auto (Bld) [#/Vol] on 09-09-2023 Basophils (Bld) [#/Vol] 0.0 10 3/uL 0.0-0.1 [facility] Basophils/100 WBC Auto (Bld) on 09-09-2023 Basophils/100 WBC (Bld) 0.4 % 0.2-2.0 [facility] Casts typing in urine sedime nt by light microscopyon 09-09-2023 Casts LM Nom (Urine sed) NONE SEEN #/LPF NONE SEEN [facility] Eosinophils/100 WBC Auto (Bl d)on 09-09-2023 Eosinophils/100 WBC (Bld) 1.1 % 0.9-7.0 [facility] Erythrocyte distribution wid th Auto (RBC) [Ratio]on 09-09-2023 Erythrocyte distribution width (RBC) [Ratio] 13.0 % 11.0-15.0 [facility] Estimated glomerular filtrat ion rate (GFR) non- Americanon 09-09-2023 GFR/1.73 sq M.predicted among non-blacks MDRD (S/P/Bld) [Vol rate/Area] 52 mL/min/{1.73_m2} >=60 [facility] Globulin Calc (S) [Mass/Vol] on 09-09-2023 Globulin (S) [Mass/Vol] 3.5 g/dL [facility] Hematocrit Auto (Bld) [Volum e fraction]on 09-09-2023 Hematocrit (Bld) [Volume fraction] 39.0 % 36.0-48.0 [facility] Hemoglobin [Mass/volume] in Bloodon 09-09-2023 Hemoglobin (Bld) [Mass/Vol] 12.6 g/dL 12.0-16.0 [facility] Laboratory - Chemistry and C hemistry - challengeon 09-09-2023 Albumin [Mass/Vol] 3.6 g/dL 3.4-5.[address] [facility] ALP [Catalytic activity/Vol] 74 U/L 46-116 [facility] ALT [Catalytic activity/Vol] 30 U/L 14-59 [facility] AST [Catalytic activity/Vol] 24 U/L 15-37 [facility] Bilirubin [Mass/Vol] 0.5 mg/dL 0.2-1.0 [facility] Calcium [Mass/Vol] 9.8 mg/dL 8.5-10.[address] [facility] Chloride [Moles/Vol] 102 mmol/L 98-107 [facility] CO2 [Moles/Vol] 31.2 mmol/L 21.0-32.0 [facility] Creatinine [Mass/Vol] 1.01 mg/dL 0.55-1.02 [facility] GFR/1.73 sq M.predicted MDRD (S/P/Bld) [Vol rate/Area] mL/min/{1.73_m2} >=60 [facility] Glucose [Mass/Vol] 100 mg/dL 74-[address] [facility] Lipase [Catalytic activity/Vol] 25.0 U/L 16.0-77.0 [facility] Potassium [Moles/Vol] 3.9 mmol/L 3.5-5.1 [facility] Protein [Mass/Vol] 7.1 g/dL 6.4-8.[address] [facility] Sodium [Moles/Vol] 140 mmol/L 136-[address] [facility] Urea nitrogen [Mass/Vol] 22.0 mg/dL 7.0-18.0 [facility] Urea nitrogen/Creatinine [Mass ratio] 21.8 mg/mg [facility] Bilirubin Ql (U) Negative NEGATIVE [facility] Glucose (U) [Mass/Vol] Negative NEGATIVE [facility] Ketones Ql (U) Negative NEGATIVE [facility] pH (U) 6.0 [pH] 5.0-9.0 [facility] Specific gravity (U) [Rel density] 1.020 1.005-1.025 [facility] Urobilinogen Qn (U) 0.2 {Sosa'U}/dL 0.2-1.0 [facility] - Hematology and Cell countson 09-09-2023 Immature granulocytes/100 WBC (Bld) 0.3 % 0.0-0.5 [facility] - Specimen inform ationon 09-09-2023 Appearance (U) CLEAR CLEAR [facility] Color (U) DK. YELLOW YELLOW [facility] - Urinalysison Amorphous sediment LM Ql (Urine sed) RARE [facility] Leukocyte esterase Test strip Ql (U) TRACE NEGATIVE [facility] Nitrite Ql (U) Negative NEGATIVE [facility] Protein Ql (U) Negative NEG/TRACE [facility] Leukocytes [#/volume] correc bill for nucleated erythrocytes in Blood by Automated counon 09-09-2023 WBC corrected for nucl RBC Auto (Bld) [#/Vol] 10.7 10 3/uL 4.0-11.0 [facility] Lymphocytes Auto (Bld) [#/Vo l]on 09-09-2023 Lymphocytes (Bld) [#/Vol] 1.5 10 3/uL 1.2-3.8 [facility] Lymphocytes/100 WBC Auto (Bl d)on 09-09-2023 Lymphocytes/100 WBC (Bld) 13.7 % 20.5-60.0 [facility] MCH Auto (RBC) [Entitic mass ]on 09-09-2023 MCH (RBC) [Entitic mass] 31.2 pg 26.7-34.0 [facility] MCHC Auto (RBC) [Mass/Vol]on 09-09-2023 MCHC (RBC) [Mass/Vol] 32.3 g/dL 29.9-35.2 [facility] MCV Auto (RBC) [Entitic vol] on 09-09-2023 MCV (RBC) [Entitic vol] 96.5 fL 81.0-99.0 [facility] Monocytes Auto (Bld) [#/Vol] on 09-09-2023 Monocytes (Bld) [#/Vol] 1.0 10 3/uL 0.3-0.8 [facility] Monocytes/100 WBC Auto (Bld) on 09-09-2023 Monocytes/100 WBC (Bld) 9.5 % 1.7-12.0 [facility] Mucus LM Ql (Urine sed)on Mucus Ql (Urine sed) NONE SEEN NONE SEEN [facility] Neutrophils Auto (Bld) [#/Vo l]on 09-09-2023 Neutrophils (Bld) [#/Vol] 8.0 10 3/uL 1.4-6.5 [facility] Neutrophils/100 WBC Auto (Bl d)on 09-09-2023 Neutrophils/100 WBC (Bld) 75.0 % 43.0-75.0 [facility] No Panel Informationon 09-08 Eosinophils # (Auto) 0.1 10 3/uL 0.0-0.7 [facility] Immature Granulocyte # (Auto) 0.03 10 3/uL 0.00-0.03 [facility] Urine Bacteria NONE SEEN #/HPF NONE SEEN [facility] Urine Culture Reflexed NO [facility] Urine Microscopic Review YES [facility] Urine Occult Blood LARGE NEGATIVE [facility] Urine Other Crystals Seen #/HPF None Seen [facility] Urine RBC 10-20 #/HPF 0-2 [facility] Urine Squamous Epithelial Cells NONE SEEN #/LPF NONE/RARE [facility] Urine Uric Acid Crystals FEW [facility] Urine WBC 2-5 #/HPF NONE SEEN [facility] Platelet mean volume Auto (B ld) [Entitic vol]on 09-09-2023 Platelet mean volume (Bld) [Entitic vol] 9.5 fL 9.5-13.5 [facility] Platelets Auto (Bld) [#/Vol] on 09-09-2023 Platelets (Bld) [#/Vol] 240 10 3/uL 150-450 [facility] RBC Auto (Bld) [#/Vol]on RBC (Bld) [#/Vol] 4.04 10 6/uL 4.20-5.40 [facility] Serum or plasma albumin/glob ulin mass ratioon 09-09-2023 Albumin/Globulin [Mass ratio] 1.0 {ratio} [facility] Serum or plasma anion gap de terminationon 09-09-2023 Anion gap [Moles/Vol] 10.7 mmol/L [facility] XR RIBS LT PA Stephen [...] by: PB GENAO Date: 2022-10-02 11:51 Normal [facility] XR CSPINE 2_3 VIEWSon 2022 XR [...] ISAEL GRIFFIN Date: 2022-09-05 15:58 Normal [facility] CBC AUTO DIFFon 12-31-2021 BASO # 0.0 103/ul Normal 0.0-0.1 [facility] Comment on above: Performed By: #### C BC #### [facility] [address] [place] [address] Dr. Radha Land Basophils/100 WBC (Bld) 0.2 % Normal 0.2-2.0 [facility] Comment on above: Performed By: #### C BC #### [facility] [address] [place] [address] Dr. Radha Land EO # 0.2 103/ul Normal 0.0-0.7 [facility] Comment on above: Performed By: #### C BC #### [facility] [address] [place] [address] Dr. Radha Land Eosinophils/100 WBC (Bld) 1.7 % Normal 0.9-7.0 [facility] Comment on above: Performed By: #### C BC #### [facility] [address] [address] [address] Radha Land Erythrocyte distribution width (RBC) [Ratio] 13.4 % Normal 11.0-15.0 [facility] Comment on above: Performed By: #### C BC #### [facility] [address] [place] [address] Dr. Radha Land Hematocrit (Bld) [Volume fraction] 40.9 % Normal 36.0-48.0 [facility] Comment on above: Performed By: #### C BC #### [facility] [address] [place] [address] Dr. Radha Land Hemoglobin (Bld) [Mass/Vol] 13.1 g/dL Normal 12.0-16.0 [facility] Comment on above: Performed By: #### C BC #### [facility] [address] [place] [address] Dr. Radha Land IG # 0.05 10e3/ul Critically high 0.00-0.03 [facility] Comment on above: Performed By: #### C BC #### [facility] [address] [place] [address] Dr. Radha Land IG % 0.4 % Normal 0.0-0.5 [facility] Comment on above: Performed By: #### C BC #### [facility] [address] [place] [address] Dr. Radha Land LYMPH # 1.4 103/ul Normal 1.2-3.8 [facility] Comment on above: Performed By: #### C BC #### [facility] [address] [place] [address] Dr. Radha Land Lymphocytes/100 WBC (Bld) 10.8 % Critically low 20.5-60.0 [facility] Comment on above: Performed By: #### C BC #### [facility] [address] [place] [address] Dr. Radha Land MANUAL DIFF REQ NO Normal [facility] Comment on above: Performed By: #### C BC #### [facility] [address] [place] [address] Dr. Radha Land MCH (RBC) [Entitic mass] 31.5 pg Normal 26.7-34.0 [facility] Comment on above: Performed By: #### C BC #### [facility] [address] [place] [address] Dr. Radha Land MCHC (RBC) [Mass/Vol] 32.0 g/dL Normal 29.9-35.2 [facility] Comment on above: Performed By: #### C BC #### [facility] [address] [place] [address] Dr. Radha Land MCV (RBC) [Entitic vol] 98.3 fL Normal 81.0-99.0 [facility] Comment on above: Performed By: #### C BC #### [facility] [address] [place] [address] Dr. Radha Land MONO # 1.3 103/ul Critically high 0.3-0.8 [facility] Comment on above: Performed By: #### C BC #### [facility] [address] [place] [address] Dr. Radha Land Monocytes/100 WBC (Bld) 9.7 % Normal 1.7-12.0 [facility] Comment on above: Performed By: #### C BC #### [facility] [address] [place] [address] Dr. Radha Land NEUT # 10.2 103/ul Critically high 1.4-6.5 [facility] Comment on above: Performed By: #### C BC #### [facility] [address] [place] [address] Dr. Radha Land Neutrophils/100 WBC (Bld) 77.2 % Critically high 43.0-75.0 [facility] Comment on above: Performed By: #### C BC #### [facility] [address] [place] [address] Dr. Radha Land Platelet mean volume (Bld) [Entitic vol] 9.7 fL Normal 9.5-13.5 [facility] Comment on above: Performed By: #### C BC #### [facility] [address] [place] [address] Dr. Radha Land PLT 235 103/ul Normal 150-450 [facility] Comment on above: Performed By: #### C BC #### [facility] [address] [place] [address] Dr. Radha Land RBC 4.16 106/ul Critically low 4.20-5.40 [facility] Comment on above: Performed By: #### C BC #### [facility] [address] [place] [address] Dr. Radha Land WBC 13.2 103/ul Critically high 4.0-11.0 [facility] Comment on above: Performed By: #### C BC #### [facility] [address] [place] [address] Dr. Radha Land SED RATE WESTERGRENon 2021 SED RATE 35 mm/hr Critically high <=30 [facility] Comment on above: Performed By: #### S EDR #### [facility] [address] [address] [address] Radha Land CBC AUTO DIFFon 11-07-2021 BASO # 0.0 103/ul Normal 0.0-0.1 [facility] Comment on above: Performed By: #### C BC ####[facility] [address] [address]DrHernandez Land Basophils/100 WBC (Bld) 0.3 % Normal 0.2-2.0 [facility] Comment on above: Performed By: #### C BC ####[facility] [address] [place], [place] [address]DrHernandez Land EO # 0.2 103/ul Normal 0.0-0.7 [facility] Comment on above: Performed By: #### C BC ####[facility] [address] [place], [place] [address]Dr. Radha Land Eosinophils/100 WBC (Bld) 3.3 % Normal 0.9-7.0 [facility] Comment on above: Performed By: #### C BC ####[facility] [address] [address]DrHernandez Land Erythrocyte distribution width (RBC) [Ratio] 13.2 % Normal 11.0-15.0 [facility] Comment on above: Performed By: #### C BC ####[facility] [address] [place], [place] [address]DrHernandez Land Hematocrit (Bld) [Volume fraction] 41.9 % Normal 36.0-48.0 [facility] Comment on above: Performed By: #### C BC ####[facility] [address] [address]Dr. Radha Land Hemoglobin (Bld) [Mass/Vol] 13.4 g/dL Normal 12.0-16.0 [facility] Comment on above: Performed By: #### C BC ####[facility] [address] [address]Dr. Radha Land IG # 0.01 10e3/ul Normal 0.00-0.03 [facility] Comment on above: Performed By: #### C BC ####[facility] [address] [place], [place] [address]Dr. Radha Emery IG % 0.2 % Normal 0.0-0.5 [facility] Comment on above: Performed By: #### C BC ####[facility] [address] [place], [place] [address]Dr. Radha Emery LYMPH # 1.6 103/ul Normal 1.2-3.8 [facility] Comment on above: Performed By: #### C BC ####[facility] [address] [place], [place] [address]Dr. Radha Emery Lymphocytes/100 WBC (Bld) 27.5 % Normal 20.5-60.0 [facility] Comment on above: Performed By: #### C BC ####[facility] [address] [place], [place] [address]Dr. Radha Emery MANUAL DIFF REQ NO Normal [facility] Comment on above: Performed By: #### C BC ####[facility] [address] [place], [place] [address]Dr. Radha Land MCH (RBC) [Entitic mass] 31.2 pg Normal 26.7-34.0 [facility] Comment on above: Performed By: #### C BC ####[facility] [address] [place], [place] [address]Dr. Radha Emery MCHC (RBC) [Mass/Vol] 32.0 g/dL Normal 29.9-35.2 [facility] Comment on above: Performed By: #### C BC ####[facility] [address] [place], [place] [address]Dr. Radha Land MCV (RBC) [Entitic vol] 97.7 fL Normal 81.0-99.0 [facility] Comment on above: Performed By: #### C BC ####[facility] [address] [address]Dr. Radha Land MONO # 0.7 103/ul Normal 0.3-0.8 [facility] Comment on above: Performed By: #### C BC ####[facility] [address] [address]Dr. Radha Emery Monocytes/100 WBC (Bld) 12.4 % Critically high 1.7-12.0 [facility] Comment on above: Performed By: #### C BC ####[facility] [address] [place], [place] [address]Dr. Radha Land NEUT # 3.2 103/ul Normal 1.4-6.5 [facility] Comment on above: Performed By: #### C BC ####[facility] [address] [place], [place] [address]Dr. Radha Emery Neutrophils/100 WBC (Bld) 56.3 % Normal 43.0-75.0 [facility] Comment on above: Performed By: #### C BC ####[facility] [address] [place], [place] [address]Dr. Radha Emery Platelet mean volume (Bld) [Entitic vol] 9.4 fL Critically low 9.5-13.5 [facility] Comment on above: Performed By: #### C BC ####[facility] [address] [place], [place] [address]Dr. Radha Emery PLT 226 103/ul Normal 150-450 [facility] Comment on above: Performed By: #### C BC ####[facility] [address] [place], [place] [address]Dr. Jacquelyncharlotte Emery RBC 4.29 106/ul Normal 4.20-5.40 [facility] Comment on above: Performed By: #### C BC ####[facility] [address] [place], [place] [address]Dr. Radha Land WBC 5.7 103/ul Normal 4.0-11.0 [facility] Comment on above: Performed By: #### C BC ####[facility] [address] [place], [place] [address]WtDr. Radha Land LIPID PROFILEon 11-07-2021 CHOL-HDL RATIO NORM SEE BELOW [facility] Comment on above: Result Comment: 3.3 - 4.4 LOW RISK 4.4 - 7.1 AVERAGE RISK 7.1 - 11.0 MODERATE RISK >11.0 HIGH RISK Performed By: #### L IPID, CMP #### [facility] [address] [place], [place] [address] Dr. Radha Land Cholesterol [Mass/Vol] 257 mg/dL Critically high <=200 [facility] Comment on above: Performed By: #### L IPID, CMP #### [facility] [address] [place], [place] [address] Dr. Radha Land Cholesterol in HDL [Mass/Vol] 76 mg/dL Critically high 40-60 [facility] Comment on above: Performed By: #### L IPID, CMP #### [facility] [address] [place], [place] [address] Dr. Radha Land Cholesterol in LDL [Mass/Vol] 163.8 mg/dL Normal [facility] Comment on above: Performed By: #### L IPID, CMP #### [facility] [address] [place], [place] [address] Dr. Radha Land Cholesterol.total/Cho lesterol in HDL [Mass ratio] 3.4 {ratio} Normal [facility] Comment on above: Performed By: #### L IPID, CMP #### [facility] [address] [place], [place] [address] Dr. Radha Land HDL NORMAL > or = 60 mg/dl - LOW CARDIOVASCULAR RISK <40 mg/dl - HIGH CARDIOVASCULAR RISK Normal [facility] Comment on above: Performed By: #### L IPID, CMP #### [facility] [address] [place], [place] [address] Dr. Radha Land LDL CALC NORMAL SEE BELOW Normal [facility] Comment on above: Result Comment: <100 mg/dl OPTIMAL 100 - 129 mg/dl NEAR OR ABOVE OPTIMAL 130 - 159 mg/dl BORDERLINE HIGH 160 - 189 mg/dl HIGH >190 mg/dl VERY HIGH Performed By: #### L IPID, CMP #### [facility] [address] [address] [address] Radha Land Triglyceride [Mass/Vol] 86 mg/dL Normal <=150 [facility] Comment on above: Performed By: #### L IPID, CMP #### [facility] [address] [address] [address] Radha Land VLDL CALC 17.2 mg/dL Normal [facility] Comment on above: Performed By: #### L IPID, CMP #### [facility] [address] [address] [address] Radha Land MG MAMM SCREEN 3D GIANCAROL CADon 11-07-2021 MG MAMM SCREEN 3D GIANCARLO CAD Patient: EDUARDO LEA Exam Date: 11/07/2021 : 1940 Gender:F Ordering : DR SAVANNA HIGGINS M.D. Admission #: [id number] Family : Order #: [id number] CLICK HERE TO VIEW EXAM RADIOLOGY REPORT [...] ovarian cancer at age 47. LOCATION: [facility] BREAST COMPOSITION: Extremely dense, which lowers [...] Arriaga MD on 11/07/2021 at 11:21 Normal [facility] PROF 14(COMP METB)on 022 Albumin [Mass/Vol] 3.6 g/dL Normal 3.4-5.0 [facility] Comment on above: Performed By: #### L IPID, CMP #### [facility] [address] [place] [address] Dr. Radha Land Albumin/Globulin [Mass ratio] 0.9 {ratio} Normal [facility] Comment on above: Performed By: #### L IPID, CMP #### [facility] [address] [address] [address] Radha Land ALP [Catalytic activity/Vol] 79 U/L Normal 46-116 [facility] Comment on above: Performed By: #### L IPID, CMP #### [facility] [address] [place] [address] Dr. Radha Land ALT [Catalytic activity/Vol] 32 U/L Normal 14-59 [facility] Comment on above: Performed By: #### L IPID, CMP #### [facility] [address] [address] [address] Radha Land Anion gap [Moles/Vol] 6.1 mmol/L Normal [facility] Comment on above: Performed By: #### L IPID, CMP #### [facility] [address] [place] [address] Dr. Radha Land AST [Catalytic activity/Vol] 28 U/L Normal 15-37 [facility] Comment on above: Performed By: #### L IPID, CMP #### [facility] [address] [address] [address] Radha Land Bilirubin [Mass/Vol] 0.6 mg/dL Normal 0.2-1.0 [facility] Comment on above: Performed By: #### L IPID, CMP #### [facility] [address] [address] [address] Radha Land Calcium [Mass/Vol] 9.1 mg/dL Normal 8.5-10.1 [facility] Comment on above: Performed By: #### L IPID, CMP #### [facility] [address] [address] [address] Radha Land Chloride [Moles/Vol] 104 mmol/L Normal 98-107 [facility] Comment on above: Performed By: #### L IPID, CMP #### [facility] [address] [address] [address] Radha Land CO2 [Moles/Vol] 31.0 mmol/L Normal 21.0-32.0 [facility] Comment on above: Performed By: #### L IPID, CMP #### [facility] [address] [address] [address] Radha Land Creatinine [Mass/Vol] 0.86 mg/dL Normal 0.55-1.02 [facility] Comment on above: Performed By: #### L IPID, CMP #### [facility] [address] [place] [address] Dr. Radha Land EGFR-AF DUTCH >60 Normal >=60 [facility] Comment on above: Performed By: #### L IPID, CMP #### [facility] [address] [place] [address] Dr. Radha Land EGFR-NON AF DUTCH >60 Normal >=60 [facility] Comment on above: Performed By: #### L IPID, CMP #### [facility] [address] [place] [address] Dr. Radha Land Globulin (S) [Mass/Vol] 4.1 g/dL Normal [facility] Comment on above: Performed By: #### L IPID, CMP #### [facility] [address] [address] [address] Radha Land Glucose [Mass/Vol] 89 mg/dL Normal 74-106 [facility] Comment on above: Performed By: #### L IPID, CMP #### [facility] [address] [address] [address] Radha Land Potassium [Moles/Vol] 4.1 mmol/L Normal 3.5-5.1 [facility] Comment on above: Performed By: #### L IPID, CMP #### [facility] [address] [address] [address] Radha Land Protein [Mass/Vol] 7.7 g/dL Normal 6.4-8.2 [facility] Comment on above: Performed By: #### L IPID, CMP #### [facility] [address] [address] [address] Radha Land Sodium [Moles/Vol] 137 mmol/L Normal 136-145 [facility] Comment on above: Performed By: #### L IPID, CMP #### [facility] [address] [address] [address] Radha Land Urea nitrogen [Mass/Vol] 12.0 mg/dL Normal 7.0-18.0 [facility] Comment on above: Performed By: #### L IPID, CMP #### [facility] [address] [address] [address] Radha Land Urea nitrogen/Creatinine [Mass ratio] 14.0 mg/mg Normal [facility] Comment on above: Performed By: #### L IPID, CMP #### [facility] [address] [address] [address] Radha Land Vital Signs Date Time Vital Sign Value Performing Clinician Facility 10-13-2023 12:31-0400 Blood Pressure Location [facility] 10-13-2023 12:31-0400 Diastolic blood pressure 78 mm[Hg] Roman [facility] 10-13-2023 12:31-0400 Heart rate 80 /min Roman [facility] 10-13-2023 12:31-0400 Respiratory rate 16 /min Roman [facility] 10-13-2023 12:31-0400 Systolic blood pressure 134 mm[Hg] Roman GU[facility] 09-30-2023 14:31-0400 Body height 165.[address] [facility] 09-30-2023 14:31-0400 Body mass index (BMI) [Ratio] 20.5 kg/m2 [facility] 09-30-2023 14:31-0400 Body weight 55.[address] [facility] 09-30-2023 14:31-0400 Diastolic blood pressure 62 mm[Hg] [facility] 09-30-2023 14:31-0400 Heart rate 64 /min [facility] 09-30-2023 14:31-0400 Systolic blood pressure 104 mm[Hg] [facility] 09-17-2023 08:00-0400 Blood Pressure Location [facility] 09-17-2023 08:00-0400 Diastolic blood pressure 80 mm[Hg] Roman [facility] 09-17-2023 08:00-0400 Heart rate 64 /min Romanarminda GUAN [facility] 09-17-2023 08:00-0400 Systolic blood pressure 132 mm[Hg] Roman GU[facility] 01-10-2023 09:45-0400 Body height 165.1 cm Savanna Higgins Other [facility] Other 01-10-2023 09:45-0400 Body mass index (BMI) [Ratio] 20.87 kg/m2 Savanna Higgins Other [facility] Other 01-10-2023 09:45-0400 Body weight 56.88 kg Savanna Higgins Other [facility] Other 01-10-2023 09:45-0400 Diastolic blood pressure 78 mm[Hg] Savanna Higgins Other [facility] Other 01-10-2023 09:45-0400 Systolic blood pressure 142 mm[Hg] Savanna Higgins Other [facility] Other 10-28-2022 08:30-0400 Body height 165.1 cm Savanna Higgins Other [facility] Other 10-28-2022 08:30-0400 Body mass index (BMI) [Ratio] 20.47 kg/m2 Savanna Higgins Other [facility] Other 10-28-2022 08:30-0400 Body weight 55.79 kg Savanna Higgins Other [facility] Other 10-28-2022 08:30-0400 Diastolic blood pressure 47 mm[Hg] Savanna Higgins Other [facility] Other 10-28-2022 08:30-0400 Systolic blood pressure 124 mm[Hg] Savanna Higgins Other [facility] Other Encounters Encounter Date Encounter Type Care Provider Facility Start: 10-13-2023 End: 10-13-2023 ambulatory Roman GUAN Facility:[facility] Start: 10-13-2023 End: 10-13-2023 Patient encounter procedure Roman GUAN [facility] Start: 09-30-2023 End: 09-30-2023 ambulatory [facility] Work Phone: Start: 09-30-2023 End: 09-30-2023 Patient encounter procedure [facility] Work Phone: Start: 09-17-2023 End: 09-17-2023 ambulatory Roman GUAN Facility:[facility] Start: 09-17-2023 End: 09-17-2023 Patient encounter procedure Roman GUAN [facility] Start: 09-11-2023 ambulatory Roman GUAN Facility :[facility] Start: 09-09-2023 Non-patient / Non-visit [facility] Work Phone: Start: 08-26-2023 End: 08-26-2023 ambulatory [facility] Work Phone: Start: 08-26-2023 End: 08-26-2023 [facility] Start: 03-28-2023 End: 03-28-2023 ambulatory Savanna Higgins Other [facility] Other Start: 03-28-2023 Telephone encounter Savanna Higgins [facility] Start: 01-31-2023 End: 01-31-2023 ambulatory Savanna Higgins Other [facility] Other Start: 01-31-2023 Nursing evaluation o f patient and report Savanna Higgins [facility] Start: 01-14-2023 End: 01-14-2023 ambulatory Savanna Higgins Other [facility] Other Start: 01-14-2023 Telephone encounter Savanna Higgins [facility] Start: 01-10-2023 End: 01-10-2023 ambulatory Savanna Higgins Other [facility] Other Start: 01-10-2023 Office outpatient visit 15 minutes Savanna Higgins [facility] Start: 10-28-2022 End: 10-28-2022 ambulatory Savanna Higgins Other [facility] Other Start: 10-28-2022 Patient encounter procedure Savanna Higgins [facility] Start: 10-24-2022 End: 10-24-2022 ambulatory Savanna Higgins Other [facility] Other Start: 10-24-2022 Telephone encounter Savanna Higgins [facility] Start: 10-08-2022 End: 10-08-2022 ambulatory KYLEIGHRONY ESQUIVELLALAMIERICY . Facility:[facility] Start: 10-02-2022 End: 10-03-[address] SAVANNA HIGGINS Facility:[facility] Start: 09-05-2022 [...] 12-31-2021 Adult health examination Savanna Higgins Other [facility] Other Start: 12-31-2021 End: 01-01-[address] SAVANNA HIGGINS Facility:[facility] Start: 12-25-2021 End: 12-26-[address] VALENTINA BECKER . Facility:[facility] Start: 12-19-2021 End: 12-20-[address] VALENTINA BECKER . Facility:[facility] Start: 11-07-2021 End: 11-08-[address] SAVANNA HIGGINS Facility:[facility] Procedures Date Procedure Procedure Detail Performing Clinician Start: 02-28-2014 right cataract extra ction with intraocular lens implantation Roman GUAN Cataract extraction and insertion of intraocular lens Roman GUAN Comment on above: left eye cervical herniated d isc removed Roman GUAN Excision of bunion Roman SEVILLA Comment on above: bilateralwillard Hysterectomy and giancarlo ateral salpingo-oophorectomy sample (specimen) Roman GUAN Screening for malign ant neoplasm of breast Savanna Higgins Other stapidectomy 3 Roman ZAPATA S Comment on above: right ear Plan of Treatment Date Care Activity Detail Author Patient Education Low back pain in adults [facility] Work Phone: Immunizations Immunization Date Immunization Notes Care Provider Fa cility 02-14-2023 influenza virus vaccine, unspecified formulation Roman GUAN [facility] 03-12-2022 SARS-CoV-2 (COVID-19 ) [id number] Roman GUAN [facility] Comment on above: Result Comment: 2023: [id number] 02-28-2022 influenza virus vaccine, split virus (incl. purified surface antigen) Savanna Higgins Other [facility] Other 02-28-2022 influenza virus vaccine, unspecified formulation [facility] 11-09-2021 SARS-CoV-2 (COVID-19 ) mRNA-1273 vaccine Roman GUAN [facility] Comment on above: Result Comment: 2023: [id number] 03-08-2021 SARS-CoV-2 (COVID-19 ) mRNA-1273 vaccine Roman GUAN [facility] 02-27-2021 influenza virus vaccine, split virus (incl. purified surface antigen) Savanna Higgins Other [facility] Other 02-27-2021 influenza virus vaccine, unspecified formulation [facility] 06-29-2020 SARS-CoV-2 (COVID-19 ) mRNA-1273 vaccine Roman GUAN [facility] 06-01-2020 SARS-CoV-2 (COVID-19 ) mRNA-1273 vaccine Roman GUAN [facility] 03-14-2020 zoster vaccine recombinant Roman GUAN [facility] 02-16-2020 influenza virus vaccine, split virus (incl. purified surface antigen) Savanna Higgins Other [facility] Other 02-16-2020 influenza virus vaccine, unspecified formulation [facility] 10-25-2019 pneumococcal polysaccharide vaccine, 23 valent Savanna Higgins Other [facility] 01-25-2019 influenza virus vaccine, unspecified formulation Roman GUAN [facility] 03-10-2018 pneumococcal conjuga te vaccine, 13 valent Savanna Higgins Other [facility] 02-14-2018 influenza virus vaccine, unspecified formulation Roman GUAN [facility] 01-08-2017 influenza virus vaccine, split virus (incl. purified surface antigen) Savanna Higgins Other [facility] Other 01-08-2017 influenza virus vaccine, unspecified formulation [facility] 02-06-2016 influenza virus vaccine, split virus (incl. purified surface antigen) Savanna Higgins Other [facility] Other 02-06-2016 influenza virus vaccine, unspecified formulation [facility] 03-24-2015 influenza virus vaccine, split virus (incl. purified surface antigen) Savanna Higgins Other [facility] Other 03-24-2015 influenza virus vaccine, unspecified formulation [facility] 02-26-2013 tetanus and diphther ia toxoids, adsorbed, preservative free, for adult use (5 Lf of tetanus toxoid and 2 Lf of diphtheria toxoid) Savanna Higgins Other [facility] Payers Date Payer Category Payer Medicare [id number] 1960 Medicare [id number] 1940 Unknown [id number] 2.16.84 0.1.152361.3.579.2.593 1940 Unknown [id number] 2.16.84 0.1.838249.3.579.2.593 1940 Unknown [id number] 2.16.84 0.1.422594.3.579.2.593 1940 Unknown [id number] 2.16.84 0.1.519455.3.579.2.593 1940 Unknown [id number] 2.16.84 0.1.693321.3.579.2.593 1940 Unknown [id number] 2.16.84 0.1.354279.3.579.2.593 1940 Unknown [id number] 2.16.84 0.1.747682.3.579.2.593 1940 Unknown [id number] 2.16.84 0.1.748826.3.579.2.593 1940 Unknown [id number] 2.16.84 0.1.846674.3.579.2.593 1940 Unknown [id number] 2.16.84 0.1.324443.3.579.2.593 1940 Unknown [id number] 2.16.84 0.1.972808.3.579.2.593 1940 Unknown [id number] 2.16.84 0.1.414098.3.579.2.593 1940 Unknown [id number] 2.16.8 40.1.049311.3.579.2.727 1940 Unknown [id number] 2.16.8 40.1.076525.3.579.2.727 1940 Unknown [id number] 2.16.8 40.1.608490.3.579.2.727 Private Health Insurance [id number] [id number] Social History Date Type Detail Facility Unknown if ever smoked [facility] Other Sex Assigned At [facility] Start: 1940 Sex Assigned At Female F [facility] Start: 09-17-2023 End: 10-13-2023 Tobacco smoking status Never smoked tobacco (finding) [facility] Tobacco smoking status Never [facility] Functional Status Date Assessment Result Facility 10-13-2023 Functional Status N/A [facility] 09-17-2023 Functional Status N/A [facility] Clinical Notes 12-19-2021 to 10-13-2023 Note Date & Type Note Facility 10-13-2023 Hospital Discharg e instructions Patient Education 10/13/2023 13:39:08 Kidney Stones, Qbty-ns-Lmtt Kidney Stones Kidney stones are rock-like masses that form inside of the kidneys. Kidneys are organs that make pee (urine). A kidney stone may move into other parts of the urinary tract, including: The tubes that connect the kidneys to the bladder (ureters). The bladder. The tube that carries urine out of the body (urethra). Kidney stones can cause very bad pain and can block the flow of pee. The stone usually leaves your body (passes) through your pee. You may need to have a doctor take out the stone. What are the causes? Kidney stones may be caused by: A condition in which certain glands make too much parathyroid hormone (primary hyperparathyroidism). A buildup of a type of crystals in the bladder made of a chemical called uric acid. The body makes uric acid when you eat certain foods. Narrowing (stricture) of one or both of the ureters. A kidney blockage that you were born with. Past surgery on the kidney or the ureters, such as gastric bypass surgery. What increases the risk? You are more likely to develop this condition if: You have had a kidney stone in the past. You have a family history of kidney stones. You do not drink enough water. You eat a diet that is high in protein, salt (sodium), or sugar. You are overweight or very overweight (obese). What are the signs or symptoms? Symptoms of a kidney stone may include: Pain in the side of the belly, right below the ribs (flank pain). Pain usually spreads (radiates) to the groin. Needing to pee often or right away (urgently). Pain when going pee (urinating). Blood in your pee (hematuria). Feeling like you may vomit (nauseous). Vomiting. Fever and chills. How is this treated? Treatment depends on the size, location, and makeup of the kidney stones. The stones will often pass out of the body through peeing. You may need to: Drink more fluid to help pass the stone. In some cases, you may be given fluids through an IV tube put into one of your veins at the hospital. Take medicine for pain. Make changes in your diet to help keep kidney stones from coming back. Sometimes, medical procedures are needed to remove a kidney stone. This may involve: A procedure to break up kidney stones using a beam of light (laser) or shock waves. Surgery to remove the kidney stones. Follow these instructions at home: Medicines Take cuzm-zcc-macyuuh and prescription medicines only as told by your doctor. Ask your doctor if the medicine prescribed to you requires you to avoid driving or using heavy machinery. Eating and drinking Drink enough fluid to keep your pee pale yellow. You may be told to drink at least 8 10 glasses of water each day. This will help you pass the stone. If told by your doctor, change your diet. This may include: ?Limiting how much salt you eat. ?Eating more fruits and vegetables. ?Limiting how much meat, poultry, fish, and eggs you eat. Follow instructions from your doctor about eating or drinking restrictions. General instructions Collect pee samples as told by your doctor. You may need to collect a pee sample: ?24 hours after a stone comes out. ?8 12 weeks after a stone comes out, and every 6 12 months after that. Strain your pee every time you pee (urinate), for as long as told. Use the strainer that your doctor recommends. Do not throw out the stone. Keep it so that it can be tested by your doctor. Keep all follow-up visits as told by your doctor. This is important. You may need follow-up tests. How is this prevented? To prevent another kidney stone: Drink enough fluid to keep your pee pale yellow. This is the best way to prevent kidney stones. Eat healthy foods. Avoid certain foods as told by your doctor. You may be told to eat less protein. Stay at a healthy weight. Where to find more information National Kidney Foundation (NKF): www.kidney.org Urology Care Foundation (UCF): www.urologyhealth.org Contact a doctor if: You have pain that gets worse or does not get better with medicine. Get help right away if: You have a fever or chills. You get very bad pain. You get new pain in your belly (abdomen). You pass out (faint). You cannot pee. Summary Kidney stones are rock-like masses that form inside of the kidneys. Kidney stones can cause very bad pain and can block the flow of pee. The stones will often pass out of the body through peeing. Drink enough fluid to keep your pee pale yellow. This information is not intended to replace advice given to you by your health care provider. Make sure you discuss any questions you have with your health care provider. Document Revised: 12/31/2021 Document Reviewed: 12/31/2021 [employer] Patient Education 2022 [employer]. Follow Up Care 09/17/2023 08:40:02 With:SHANNON SALGUERO, Roman Mitchell, URL Address: [facility] [address] [place] [address]- [phone] When: Unknown [facility] 09-17-2023 Hospital Discharg e instructions Patient Education [...] Follow these instructions at home: Medicines Take nkhw-dwl-mmdkwbk and prescription medicines only as told by [...] Kidney Foundation (NKF): www.kidney.org Urology Care Foundation (UCF): www.urologyhealth.org Contact a health care provider if: [...] provider. Document Revised: 08/07/2022 Document Reviewed: 08/07/2022 [employer] Patient Education 2022 [employer]. Follow Up Care 09/11/2023 08:49:49 With:SHANNON SALGUERO, Roman R, URL Address: [facility] [address], [place] [address]- When: Unknown [facility] 01-31-2023 Evaluation note Encounter Date Diagnosis Assessment Notes Jan, Seasonal allergic rhinitis, unspecified trigger (ICD-10 - J30.2) [facility] Other 09-01-2023 Evaluation note* Encounter Date Diagnosis Assessment Notes Treatment Notes Treatment Clinical Notes Jan, Piriformis syndrome of left side (ICD-10 - G57.02) Unable to add more tramadol - likely has pain clinic w [facility]. PT order printed. Add steroids. Also gave copies of home exercises. [facility] Other 06-19-2023 Evaluation note* Encounter Date Diagnosis [...] - order handwritten and given to pt [facility] Other 04-27-2023 NoteCONSULTATION CONSULTATION DATE: 09/05/2022 TO: [...] our patients to inform us about any twkq-osd-jvcvzio medications or herbal remedies/nutritional supplements/alternative remedies. 2. [...] treatment options with their primary care provider.[id number] Note CONSULTATION PROCEDURE DATE: 12/25/2021 PREOPERATIVE DIAGNOSIS: [...] procedurally range of motion exercises are performed.[facility] 12-19-2021 NoteCONSULTATION CONSULTATION DATE: 12/19/2021 This [...] where she was seen by the physician patient observation assistant in the office and received left [...] the plan of care, to be contacted [place] Future Appointments Appointment Date:10/13/2023 12:15:00 PM Scheduled Provider:Roman GUAN MD Location:[facility] Appointment Type:URO Office Visit [facility] Evaluation noteNo InformationNort [employer] Other Evaluation noteNo assessment information available [facility] Work Phone: Evaluation note* Diagnosis Onset Date Resolution Status Right lumbar pain acute [facility] Work Phone: History general Narrative - Reported* Type Description Date Medical History migraine headache Medical History dizziness Medical History tremors Surgical History hysterectomy Surgical History bunionectomy Surgical History stapedectomy Hospitalization History see above [facility] Other Hospital course Narrative No data available for this section [facility] Progress note No data available for this section [facility] Summary Purpose Family History No Family History Records Found Relationship Condition Age at Onset Recorded Date/T julia father Unknown family member Unknown Not Specified Unknown Advance Directives No Advanced Directives Records Found Advance Directive Response Recorded Date/ Time Advance Directives No August 25 10:55am Chief Complaint and Reason for Visit Chief Complaint allergy shot Chief Complaint allergy shot check up Reason for Visit Right lumbar pain Additional Source Comments INFORMATION SOURCE (unrecogn ized section and content) DATE CREATED AUTHOR 10/18/2022 [facility] DATE CREATED AUTHOR AUTHOR'S ORGANIZ ATION 10/16/2023 [facility] REASON FOR VISIT [...] BE BASED ON THE PRIMARY CLINICAL RECORDS. [facility]. provides no warranty or guarantee of the accuracy or completeness of information in this document.
== END 2023-11-06 11:58 | disposition home or self-care (01) ==
LOC: RAD 11:58
PROVIDERS: PCP Family Medicine; Visit Provider Family Medicine
DX: N20.0 Calculus of kidney (principal)
CPT/HCPCS: 74018

== ENCOUNTER 2023-11-17 08:23 | Outpatient (OUT) | payer MEDICARE, SELFPAY ==
--- NOTE | 2023-11-17 08:25 | MM_ITS ---
Patient Name: EDUARDO LEA MR#: [id number] : 1940 Exam Date: 11/17/2023 Ordering Doctor: DR Savanna Guajardo M.D. RADIOLOGY REPORT PROCEDURE: MM TOMOSYNTHESIS SCREENING BI COMPARISON: MM TOMOSYNTHESIS SCREENING BI, 11/14/2022. MG MAMM SCREEN 3D GI[facility]LO CAD, 11/07/2021. INDICATIONS: Screening Calculator Name NCI Breast Cancer Risk Assessment Tool 5 Year Breast Cancer Risk 1.10% Lifetime Breast Cancer Risk 1.20% Personal Breast Cancer No Personal Ovarian Cancer No Treatments None Family Cancers Mother with ovarian cancer at age ~48. LOCATION: [facility] BREAST COMPOSITION: The breasts are extremely dense, which lowers the sensitivity of mammography. FINDINGS: DIAGNOSTIC CATEGORY 2--BENIGN FINDING. NO CHANGE FROM COMPARISON. Scattered benign-appearing calcifications are present. RIGHT BREAST: No significant suspicious finding. LEFT BREAST: No significant suspicious finding. RECOMMENDATIONS: ROUTINE MAMMOGRAM AND CLINICAL EVALUATION IN 12 MONTHS. PLEASE NOTE: A NORMAL MAMMOGRAM DOES NOT EXCLUDE THE POSSIBILITY OF BREAST CANCER. A CLINICALLY SUSPICIOUS PALPABLE LUMP SHOULD BE BIOPSIED. Dictated by: Bismark Arriaga MD on 11/17/2023 at 09:10 Approved by: Bismark Arriaga MD on 11/17/2023 at 09:10
--- OUTSIDE RECORDS SUMMARY | 2023-11-17 08:32 | XMS_ITS | CCD ---
Author Organization [facility] Care Team Providers Care Enrollment Nurse Name Role Phone GISELA, DR SAVANNA Willis [...] Unavailable HIGGINS, DR SAVANNA Willis Attending Unavailable FOOTVILLE, DR MINE [employer] Unavailable GISELA, DR [...] take 1 tablet by mouth once daily Cairo-3 Fish Oil 1 tab, Oral, Daily, Refill(s) [...] day(s), # 30 cap(s), Refills(s) 0, Pharmacy: [facility]/pharmacy #[id number], 56.1, kg, 09/17/23 8:03:00 EDT, [...] CT Reporton 10-15-2023 RAD - CT Report [id number]# 1.00TIFF Normal [facility] Ambulatory Visit Summaryon 0 10-13-2023 Ambulatory Visit [...] Vitamins oral capsule) omega-3 polyunsaturated fatty acids (Cairo-3 Fish Oil) tamsulosin (Flomax 0.4 mg Cap) [...] [address], [place] [address] [phone] Medications What How Much When Instructions Unchanged [...] or concerns Unchanged omega-3 polyunsaturated fatty acids (Cairo-3 Fish Oil) 1 tab By Mouth Every [...] the groin. (more content not included)... Normal [facility] Patient Educationon 10-13-19 24 Patient Education Urology [...] these instructions at home: Medicines ? Take ioks-ovf-vwazeag and prescription medicines only as told by [...] Reviewed: 12/31/2021 Elsevier Patient Education ? 2022 [employer] Najma [facility] Urology Office/Clinic Noteon 10-13-2023 Urology Office/Clinic Note [...] pass, required surgery 2 years ago in [place]. Was told at this time that she had a puncture in her kidney that would heal. Follow-up With When Contact Information SHANNON SALGUERO, Roman Mitchell, URL [facility] [address], [place] [address] [phone] Additional Instructions: f/u pending CT scan Patient Education Kidney Stones, Zwci-sy-Zlev I, Anabella Villalta, personally scribed for Dr. [...] Vitamins oral capsule, 1 cap(s), Oral, Daily Cairo-3 Fish Oil, 1 tab, Oral, Daily Osteo [...] virus vaccine, inactivated 02/14/2023 Recorded SARS-CoV-2 (COVID-19) mRNAMUL.ORD![id number] 03/12/2022 Recorded 2023-10-13: TPV80 influenza virus vaccine, inactivated 02/28/2022 Recorded SARS-CoV-2 (COVID-19) mRNA-1273 vaccine 11/09/2021 Recorded 2023-10-13: TPV80 SARS-CoV-2 (COVID-19) mRNA-12 (more content not included)... [facility] Comment on above: Result Comment: Elec tronically Signed By: Roman GUAN MD\.br\Date and Time Signed: 10/13/23 13:41 EDT\.br\Electronically Co-Signed By: Anabella Villalta\.br\Date and Time Co-Signed: 10/13/23 13:39 EDT RAD - MISCon 10-12-2023 RAD - MISC [id number] #1.00TIFF [facility] ED Note-Physicianon 09-18-19 ED Note-Physician [id number] 8#1.00TIFF [facility] Formson 09-18-2023 Forms [id number] #1.00TIFF [facility] RAD - CT Reporton 09-18-2023 RAD - CT Report [id number] 8#1.00TIFF [facility] RAD - MISCon 09-18-2023 [facility] [id number] 1#1.00TIFF [facility] [id number]# 1.00TIFF [facility] [id number] 9#1.00TIFF [facility] Ambulatory Visit Summaryon 0 09-17-2023 Ambulatory Visit [...] physician if questions or concerns Non-Formulary Medication ([facility]) atenolol (atenolol 50 mg Tab) calcium carbonate (Caltrate) calcium-vitamin D (Caltrate 600 with D) chondroitin-glucosam ine (Osteo Bi-Flex) diclofenac (diclofenac sodium 50 mg Oral EC Tab) meclizine (meclizine 25 mg Tab) multivitamin (Multiple Vitamins oral capsule) omega-3 polyunsaturated fatty acids (Cairo-3 Fish Oil) zolmitriptan (Zomig 5 mg oral [...] SALGUERO, Roman Mitchell Where: [facility] Patient Educationon 09-17-19 Patient Education Urology Kidney [...] these instructions at home: Medicines ? Take ynry-fah-ltjtero and prescription medicines only as told by [...] recommendations from (more content not included)... Normal [facility] Urology Office/Clinic Noteon 09-17-2023 Urology Office/Clinic Note Chief Complaint New pt HPI Staff 1 week follow up w/[facility]-09/15/23-[facility] Pt was seen at [facility] on 09/09/23 due to abdominal pain [...] yo female new pt following up to [facility] ED visit 09/09/23 due to intermittent [...] pass, required surgery 2 years ago in [place]. Was told at this time that [...] [address] ct[address] SEs discussed. Rx sent to [facility] [place]. -High fluid intake. -Pt to call or go to the ER if he were to experience fever, shaking, chills, uncontrolled nausea, vomiting, or pain. Follow-up With When Contact Information SHANNON SALGUERO, Roman Mitchell, URL [facility] [address], [place] [address]- Additional Instructions: 3 weeks with [facility] Patient [...] Vitamins oral capsule, 1 cap(s), Oral, Daily Cairo-3 Fish Oil, 1 tab, Oral, Daily Osteo [...] Lab Results (more content not included)... Normal [facility] Comment on above: Result Comment: Elec tronically Signed By: Roman GUAN MD\.br\Date and Time Signed: 09/17/23 08:41 EDT\.br\Electronically Co-Signed By: Cynthia Jones\.br\Date and Time Co-Signed: 09/17/23 08:39 EDT Basophils Auto (Bld) [#/Vol] on 09-09-2023 Basophils (Bld) [#/Vol] 0.0 10 3/uL 0.0-0.1 [facility] Basophils/100 WBC Auto (Bld) on 09-09-2023 Basophils/100 WBC (Bld) 0.4 % 0.2-2.0 [facility] Casts typing in urine sedime nt by light microscopyon 09-09-2023 Casts LM Nom (Urine sed) NONE SEEN #/LPF NONE SEEN [facility] Eosinophils/100 WBC Auto (Bl d)on 09-09-2023 Eosinophils/100 WBC (Bld) 1.1 % 0.9-7.0 [facility] Erythrocyte distribution wid th Auto (RBC) [Ratio]on 09-09-2023 Erythrocyte distribution width (RBC) [Ratio] 13.0 % 11.0-15.0 [facility] Estimated glomerular filtrat ion rate (GFR) non- Americanon 09-09-2023 GFR/1.73 sq M.predicted among non-blacks MDRD (S/P/Bld) [Vol rate/Area] 52 mL/min/{1.73_m2} >=60 [facility] Globulin Calc (S) [Mass/Vol] on 09-09-2023 Globulin (S) [Mass/Vol] 3.5 g/dL [facility] Hematocrit Auto (Bld) [Volum e fraction]on 09-09-2023 Hematocrit (Bld) [Volume fraction] 39.0 % 36.0-48.0 [facility] Hemoglobin [Mass/volume] in Bloodon 09-09-2023 Hemoglobin (Bld) [Mass/Vol] 12.6 g/dL 12.0-16.0 [facility] Laboratory - Chemistry and C hemistry - challengeon 09-09-2023 Albumin [Mass/Vol] 3.6 g/dL 3.4-5.0 [facility] ALP [Catalytic activity/Vol] 74 U/L 46-116 [facility] ALT [Catalytic activity/Vol] 30 U/L 14-59 [facility] AST [Catalytic activity/Vol] 24 U/L 15-37 [facility] Bilirubin [Mass/Vol] 0.5 mg/dL 0.2-1.0 [facility] Calcium [Mass/Vol] 9.8 mg/dL 8.5-10.1 [facility] Chloride [Moles/Vol] 102 mmol/L 98-107 [facility] CO2 [Moles/Vol] 31.2 mmol/L 21.0-32.0 [facility] Creatinine [Mass/Vol] 1.01 mg/dL 0.55-1.02 [facility] GFR/1.73 sq M.predicted MDRD (S/P/Bld) [Vol rate/Area] mL/min/{1.73_m2} >=60 [facility] Glucose [Mass/Vol] 100 mg/dL 74-106 [facility] Lipase [Catalytic activity/Vol] 25.0 U/L 16.0-77.0 [facility] Potassium [Moles/Vol] 3.9 mmol/L 3.5-5.1 [facility] Protein [Mass/Vol] 7.1 g/dL 6.4-8.2 [facility] Sodium [Moles/Vol] 140 mmol/L 136-145 [facility] Urea nitrogen [Mass/Vol] 22.0 mg/dL 7.0-18.0 [facility] Urea nitrogen/Creatinine [Mass ratio] 21.8 mg/mg [facility] Bilirubin Ql (U) Negative NEGATIVE [facility] Glucose (U) [Mass/Vol] Negative NEGATIVE [facility] Ketones Ql (U) Negative NEGATIVE [facility] pH (U) 6.0 [pH] 5.0-9.0 [facility] Specific gravity (U) [Rel density] 1.020 1.005-1.025 [facility] Urobilinogen Qn (U) 0.2 {Sosa'U}/dL 0.2-1.0 [facility] Laboratory - Hematology and Cell countson 09-09-2023 Immature granulocytes/100 WBC (Bld) 0.3 % 0.0-0.5 [facility] - Specimen inform ationon 09-09-2023 Appearance (U) CLEAR CLEAR [facility] Color (U) DK. YELLOW YELLOW [facility] - Urinalysison Amorphous sediment LM Ql (Urine sed) RARE [facility] Leukocyte esterase Test strip Ql (U) TRACE NEGATIVE [facility] Nitrite Ql (U) Negative NEGATIVE [facility] Protein Ql (U) Negative NEG/TRACE [facility] Leukocytes [#/volume] correc bill for nucleated erythrocytes in Blood by Automated counon 09-09-2023 WBC corrected for nucl RBC Auto (Bld) [#/Vol] 10.7 10 3/uL 4.0-11.0 [facility] Lymphocytes Auto (Bld) [#/Vo l]on 09-09-2023 Lymphocytes (Bld) [#/Vol] 1.5 10 3/uL 1.2-3.8 [facility] Lymphocytes/100 WBC Auto (Bl d)on 09-09-2023 Lymphocytes/100 WBC (Bld) 13.7 % 20.5-60.0 [facility] MCH Auto (RBC) [Entitic mass ]on 09-09-2023 MCH (RBC) [Entitic mass] 31.2 pg 26.7-34.0 [facility] MCHC Auto (RBC) [Mass/Vol]on 09-09-2023 MCHC (RBC) [Mass/Vol] 32.3 g/dL 29.9-35.2 [facility] MCV Auto (RBC) [Entitic vol] on 09-09-2023 MCV (RBC) [Entitic vol] 96.5 fL 81.0-99.0 [facility] Monocytes Auto (Bld) [#/Vol] on 09-09-2023 Monocytes (Bld) [#/Vol] 1.0 10 3/uL 0.3-0.8 [facility] Monocytes/100 WBC Auto (Bld) on 09-09-2023 Monocytes/100 WBC (Bld) 9.5 % 1.7-12.0 [facility] Mucus LM Ql (Urine sed)on Mucus Ql (Urine sed) NONE SEEN NONE SEEN [facility] Neutrophils Auto (Bld) [#/Vo l]on 09-09-2023 Neutrophils (Bld) [#/Vol] 8.0 10 3/uL 1.4-6.5 [facility] Neutrophils/100 WBC Auto (Bl d)on 09-09-2023 Neutrophils/100 WBC (Bld) 75.0 % 43.0-75.0 [facility] No Panel Informationon 09-08 Eosinophils # (Auto) 0.1 10 3/uL 0.0-0.7 [facility] Immature Granulocyte # (Auto) 0.03 10 3/uL 0.00-0.03 [facility] Urine Bacteria NONE SEEN #/HPF NONE SEEN [facility] Urine Culture Reflexed NO [facility] Urine Microscopic Review YES [facility] Urine Occult Blood LARGE NEGATIVE [facility] Urine Other Crystals Seen #/HPF None Seen [facility] Urine RBC 10-20 #/HPF 0-2 [facility] Urine Squamous Epithelial Cells NONE SEEN #/LPF NONE/RARE [facility] Urine Uric Acid Crystals FEW [facility] Urine WBC 2-5 #/HPF NONE SEEN [facility] Platelet mean volume Auto (B ld) [Entitic vol]on 09-09-2023 Platelet mean volume (Bld) [Entitic vol] 9.5 fL 9.5-13.5 [facility] Platelets Auto (Bld) [#/Vol] on 09-09-2023 Platelets (Bld) [#/Vol] 240 10 3/uL 150-450 [facility] RBC Auto (Bld) [#/Vol]on RBC (Bld) [#/Vol] 4.04 10 6/uL 4.20-5.40 [facility] Serum or plasma albumin/glob ulin mass ratioon 09-09-2023 Albumin/Globulin [Mass ratio] 1.0 {ratio} [facility] Serum or plasma anion gap de terminationon 09-09-2023 Anion gap [Moles/Vol] 10.7 mmol/L [facility] XR RIBS LT PA Stephen XR [...] PB GENAO Date: 2022-10-02 11:51 Normal [facility] XR CSPINE 2_3 VIEWSon 2022 [...] ISAEL GRIFFIN Date: 2022-09-05 15:58 Normal [facility] CBC AUTO DIFFon 12-31-2021 BASO # 0.0 103/ul Normal 0.0-0.1 [facility] Comment on above: Performed By: #### C BC #### [facility] [address] [place] [address] Dr. Radha Land Basophils/100 WBC (Bld) 0.2 % Normal 0.2-2.0 [facility] Comment on above: Performed By: #### C BC #### [facility] [address] [place] [address] Dr. Radha Land EO # 0.2 103/ul Normal 0.0-0.7 [facility] Comment on above: Performed By: #### C BC #### [facility] [address] [place] [address] Dr. Radha Land Eosinophils/100 WBC (Bld) 1.7 % Normal 0.9-7.0 [facility] Comment on above: Performed By: #### C BC #### [facility] [address] [address] [address] Radha Land Erythrocyte distribution width (RBC) [Ratio] 13.4 % Normal 11.0-15.0 [facility] Comment on above: Performed By: #### C BC #### [facility] [address] [place] [address] Dr. Radha Land Hematocrit (Bld) [Volume fraction] 40.9 % Normal 36.0-48.0 [facility] Comment on above: Performed By: #### C BC #### [facility] [address] [place] [address] Dr. Radha Land Hemoglobin (Bld) [Mass/Vol] 13.1 g/dL Normal 12.0-16.0 [facility] Comment on above: Performed By: #### C BC #### [facility] [address] [place] [address] Dr. Radha Land IG # 0.05 10e3/ul Critically high 0.00-0.03 [facility] Comment on above: Performed By: #### C BC #### [facility] [address] [place] [address] Dr. Radha Land IG % 0.4 % Normal 0.0-0.5 [facility] Comment on above: Performed By: #### C BC #### [facility] [address] [place] [address] Dr. Radha Land LYMPH # 1.4 103/ul Normal 1.2-3.8 [facility] Comment on above: Performed By: #### C BC #### [facility] [address] [place] [address] Dr. Radha Land Lymphocytes/100 WBC (Bld) 10.8 % Critically low 20.5-60.0 [facility] Comment on above: Performed By: #### C BC #### [facility] [address] [place] [address] Dr. Radha Land MANUAL DIFF REQ NO Normal [facility] Comment on above: Performed By: #### C BC #### [facility] [address] [place] [address] Dr. Radha Land MCH (RBC) [Entitic mass] 31.5 pg Normal 26.7-34.0 [facility] Comment on above: Performed By: #### C BC #### [facility] [address] [place] [address] Dr. Radha Land MCHC (RBC) [Mass/Vol] 32.0 g/dL Normal 29.9-35.2 [facility] Comment on above: Performed By: #### C BC #### [facility] [address] [place] [address] Dr. Radha Land MCV (RBC) [Entitic vol] 98.3 fL Normal 81.0-99.0 [facility] Comment on above: Performed By: #### C BC #### [facility] [address] [place] [address] Dr. Radha Land MONO # 1.3 103/ul Critically high 0.3-0.8 [facility] Comment on above: Performed By: #### C BC #### [facility] [address] [place] [address] Dr. Radha Land Monocytes/100 WBC (Bld) 9.7 % Normal 1.7-12.0 [facility] Comment on above: Performed By: #### C BC #### [facility] [address] [place] [address] Dr. Radha Land NEUT # 10.2 103/ul Critically high 1.4-6.5 [facility] Comment on above: Performed By: #### C BC #### [facility] [address] [place] [address] Dr. Radha Land Neutrophils/100 WBC (Bld) 77.2 % Critically high 43.0-75.0 [facility] Comment on above: Performed By: #### C BC #### [facility] [address] [place] [address] Dr. Radha Land Platelet mean volume (Bld) [Entitic vol] 9.7 fL Normal 9.5-13.5 [facility] Comment on above: Performed By: #### C BC #### [facility] [address] [place] [address] Dr. Radha Land PLT 235 103/ul Normal 150-450 [facility] Comment on above: Performed By: #### C BC #### [facility] [address] [place] [address] Dr. Radha Land RBC 4.16 106/ul Critically low 4.20-5.40 [facility] Comment on above: Performed By: #### C BC #### [facility] [address] [place] [address] Dr. Radha Land WBC 13.2 103/ul Critically high 4.0-11.0 [facility] Comment on above: Performed By: #### C BC #### [facility] [address] [place] [address] Dr. Radha Land SED RATE WESTERGRENon 2021 SED RATE 35 mm/hr Critically high <=30 [facility] Comment on above: Performed By: #### S EDR #### [facility] [address] [address] [address] Radha Land CBC AUTO DIFFon 11-07-2021 BASO # 0.0 103/ul Normal 0.0-0.1 [facility] Comment on above: Performed By: #### C BC ####[facility] [address] [address]DrHernandez Land Basophils/100 WBC (Bld) 0.3 % Normal 0.2-2.0 [facility] Comment on above: Performed By: #### C BC ####[facility] [address] [place], [place] [address]DrHernandez Land EO # 0.2 103/ul Normal 0.0-0.7 [facility] Comment on above: Performed By: #### C BC ####[facility] [address] [place], [place] [address]Dr. Radha Land Eosinophils/100 WBC (Bld) 3.3 % Normal 0.9-7.0 [facility] Comment on above: Performed By: #### C BC ####[facility] [address] [address]DrHernandez Land Erythrocyte distribution width (RBC) [Ratio] 13.2 % Normal 11.0-15.0 [facility] Comment on above: Performed By: #### C BC ####[facility] [address] [place], [place] [address]DrHernandez Land Hematocrit (Bld) [Volume fraction] 41.9 % Normal 36.0-48.0 [facility] Comment on above: Performed By: #### C BC ####[facility] [address] [address]Dr. Radha Land Hemoglobin (Bld) [Mass/Vol] 13.4 g/dL Normal 12.0-16.0 [facility] Comment on above: Performed By: #### C BC ####[facility] [address] [address]Dr. Radha Land IG # 0.01 10e3/ul Normal 0.00-0.03 [facility] Comment on above: Performed By: #### C BC ####[facility] [address] [place], [place] [address]Dr. Radha Emery IG % 0.2 % Normal 0.0-0.5 [facility] Comment on above: Performed By: #### C BC ####[facility] [address] [place], [place] [address]Dr. Radha Emery LYMPH # 1.6 103/ul Normal 1.2-3.8 [facility] Comment on above: Performed By: #### C BC ####[facility] [address] [place], [place] [address]Dr. Radha Emery Lymphocytes/100 WBC (Bld) 27.5 % Normal 20.5-60.0 [facility] Comment on above: Performed By: #### C BC ####[facility] [address] [place], [place] [address]Dr. Radha Emery MANUAL DIFF REQ NO Normal [facility] Comment on above: Performed By: #### C BC ####[facility] [address] [place], [place] [address]Dr. Radha Land MCH (RBC) [Entitic mass] 31.2 pg Normal 26.7-34.0 [facility] Comment on above: Performed By: #### C BC ####[facility] [address] [place], [place] [address]Dr. Radha Emery MCHC (RBC) [Mass/Vol] 32.0 g/dL Normal 29.9-35.2 [facility] Comment on above: Performed By: #### C BC ####[facility] [address] [place], [place] [address]Dr. Radha Land MCV (RBC) [Entitic vol] 97.7 fL Normal 81.0-99.0 [facility] Comment on above: Performed By: #### C BC ####[facility] [address] [address]Dr. Radha Land MONO # 0.7 103/ul Normal 0.3-0.8 [facility] Comment on above: Performed By: #### C BC ####[facility] [address] [address]Dr. Radha Emery Monocytes/100 WBC (Bld) 12.4 % Critically high 1.7-12.0 [facility] Comment on above: Performed By: #### C BC ####[facility] [address] [place], [place] [address]Dr. Radha Land NEUT # 3.2 103/ul Normal 1.4-6.5 [facility] Comment on above: Performed By: #### C BC ####[facility] [address] [place], [place] [address]Dr. Radha Emery Neutrophils/100 WBC (Bld) 56.3 % Normal 43.0-75.0 [facility] Comment on above: Performed By: #### C BC ####[facility] [address] [place], [place] [address]Dr. Radha Emery Platelet mean volume (Bld) [Entitic vol] 9.4 fL Critically low 9.5-13.5 [facility] Comment on above: Performed By: #### C BC ####[facility] [address] [place], [place] [address]Dr. Radha Emery PLT 226 103/ul Normal 150-450 [facility] Comment on above: Performed By: #### C BC ####[facility] [address] [place], [place] [address]Dr. Jacquelyncharlotte Emery RBC 4.29 106/ul Normal 4.20-5.40 [facility] Comment on above: Performed By: #### C BC ####[facility] [address] [place], [place] [address]Dr. Radha Land WBC 5.7 103/ul Normal 4.0-11.0 [facility] Comment on above: Performed By: #### C BC ####[facility] [address] [place], [place] [address]NwDr. Radha Land LIPID PROFILEon 11-07-2021 CHOL-HDL RATIO NORM SEE BELOW Normal [facility] Comment on above: Result Comment: 3.3 - 4.4 LOW RISK 4.4 - 7.1 AVERAGE RISK 7.1 - 11.0 MODERATE RISK >11.0 HIGH RISK Performed By: #### L IPID, CMP #### [facility] [address] [place], [place] [address] Dr. Radha Land Cholesterol [Mass/Vol] 257 mg/dL Critically high <=200 [facility] Comment on above: Performed By: #### L IPID, CMP #### [facility] [address] [place], [place] [address] Dr. Radha Land Cholesterol in HDL [Mass/Vol] 76 mg/dL Critically high 40-60 [facility] Comment on above: Performed By: #### L IPID, CMP #### [facility] [address] [place], [place] [address] Dr. Radha Land Cholesterol in LDL [Mass/Vol] 163.8 mg/dL Normal [facility] Comment on above: Performed By: #### L IPID, CMP #### [facility] [address] [place], [place] [address] Dr. Radha Land Cholesterol.total/Cho lesterol in HDL [Mass ratio] 3.4 {ratio} Normal [facility] Comment on above: Performed By: #### L IPID, CMP #### [facility] [address] [place], [place] [address] Dr. aRdha Land HDL NORMAL > or = 60 mg/dl - LOW CARDIOVASCULAR RISK <40 mg/dl - HIGH CARDIOVASCULAR RISK Normal [facility] Comment on above: Performed By: #### L IPID, CMP #### [facility] [address] [place], [place] [address] Dr. Radha Land LDL CALC NORMAL SEE BELOW Normal [facility] Comment on above: Result Comment: <100 mg/dl OPTIMAL 100 - 129 mg/dl NEAR OR ABOVE OPTIMAL 130 - 159 mg/dl BORDERLINE HIGH 160 - 189 mg/dl HIGH >190 mg/dl VERY HIGH Performed By: #### L IPID, CMP #### [facility] [address] [address] [address] Radha Land Triglyceride [Mass/Vol] 86 mg/dL Normal <=150 [facility] Comment on above: Performed By: #### L IPID, CMP #### [facility] [address] [address] [address] Radha Land VLDL CALC 17.2 mg/dL Normal [facility] Comment on above: Performed By: #### L IPID, CMP #### [facility] [address] [address] [address] Radha Land MG MAMM SCREEN 3D GIANCARLO CADon 11-07-2021 MG MAMM SCREEN 3D GIANCARLO CAD Patient: EDUARDO LEA Exam Date: 11/07/2021 : 1940 Gender:F Ordering : DR SAVANNA HIGGINS M.D. Admission #: [id number] Family : Order #: [id number] CLICK HERE TO VIEW EXAM RADIOLOGY REPORT [...] ovarian cancer at age 47. LOCATION: [facility] BREAST COMPOSITION: Extremely dense, which lowers the [...] Arriaga MD on 11/07/2021 at 11:21 Normal [facility] PROF 14(COMP METB)on 022 Albumin [Mass/Vol] 3.6 g/dL Normal 3.4-5.0 [facility] Comment on above: Performed By: #### L IPID, CMP #### [facility] [address] [place] [address] Dr. Radha Lnad Albumin/Globulin [Mass ratio] 0.9 {ratio} Normal [facility] Comment on above: Performed By: #### L IPID, CMP #### [facility] [address] [address] [address] Radha Land ALP [Catalytic activity/Vol] 79 U/L Normal 46-116 [facility] Comment on above: Performed By: #### L IPID, CMP #### [facility] [address] [place] [address] Dr. Radha Land ALT [Catalytic activity/Vol] 32 U/L Normal 14-59 [facility] Comment on above: Performed By: #### L IPID, CMP #### [facility] [address] [address] [address] Radha Land Anion gap [Moles/Vol] 6.1 mmol/L Normal [facility] Comment on above: Performed By: #### L IPID, CMP #### [facility] [address] [place] [address] Dr. Radha Land AST [Catalytic activity/Vol] 28 U/L Normal 15-37 [facility] Comment on above: Performed By: #### L IPID, CMP #### [facility] [address] [address] [address] Radha Land Bilirubin [Mass/Vol] 0.6 mg/dL Normal 0.2-1.0 [facility] Comment on above: Performed By: #### L IPID, CMP #### [facility] [address] [address] [address] Radha Land Calcium [Mass/Vol] 9.1 mg/dL Normal 8.5-10.1 [facility] Comment on above: Performed By: #### L IPID, CMP #### [facility] [address] [address] [address] Radha Land Chloride [Moles/Vol] 104 mmol/L Normal 98-107 [facility] Comment on above: Performed By: #### L IPID, CMP #### [facility] [address] [address] [address] Radha Land CO2 [Moles/Vol] 31.0 mmol/L Normal 21.0-32.0 [facility] Comment on above: Performed By: #### L IPID, CMP #### [facility] [address] [address] [address] Radha Land Creatinine [Mass/Vol] 0.86 mg/dL Normal 0.55-1.02 [facility] Comment on above: Performed By: #### L IPID, CMP #### [facility] [address] [place] [address] Dr. Radha Land EGFR-AF FRENCH >60 Normal >=60 [facility] Comment on above: Performed By: #### L IPID, CMP #### [facility] [address] [place] [address] Dr. Radha Land EGFR-NON AF FRENCH >60 Normal >=60 [facility] Comment on above: Performed By: #### L IPID, CMP #### [facility] [address] [place] [address] Dr. Radha Land Globulin (S) [Mass/Vol] 4.1 g/dL Normal [facility] Comment on above: Performed By: #### L IPID, CMP #### [facility] [address] [address] [address] Radha Land Glucose [Mass/Vol] 89 mg/dL Normal 74-106 [facility] Comment on above: Performed By: #### L IPID, CMP #### [facility] [address] [address] [address] Radha Land Potassium [Moles/Vol] 4.1 mmol/L Normal 3.5-5.1 [facility] Comment on above: Performed By: #### L IPID, CMP #### [facility] [address] [address] [address] Radha Land Protein [Mass/Vol] 7.7 g/dL Normal 6.4-8.2 [facility] Comment on above: Performed By: #### L IPID, CMP #### [facility] [address] [address] [address] Radha Land Sodium [Moles/Vol] 137 mmol/L Normal 136-145 [facility] Comment on above: Performed By: #### L IPID, CMP #### [facility] [address] [address] [address] Radha Land Urea nitrogen [Mass/Vol] 12.0 mg/dL Normal 7.0-18.0 [facility] Comment on above: Performed By: #### L IPID, CMP #### [facility] [address] [address] [address] Radha Land Urea nitrogen/Creatinine [Mass ratio] 14.0 mg/mg Normal [facility] Comment on above: Performed By: #### L IPID, CMP #### [facility] [address] [address] [address] Radha Land Vital Signs Date Time Vital Sign Value Performing Clinician Facility 10-13-2023 12:31-0400 Blood Pressure Location Roman GUAN [facility] 10-13-2023 12:31-0400 Diastolic blood pressure 78 mm[Hg] Roman GUAN [facility] 10-13-2023 12:31-0400 Heart rate 80 /min Roman GUAN [facility] 10-13-2023 12:31-0400 Respiratory rate 16 /min Roman GUAN [facility] 10-13-2023 12:31-0400 Systolic blood pressure 134 mm[Hg] Roman GUAN [facility] 09-30-2023 14:31-0400 Body height 165.1 cm [facility] 09-30-2023 14:31-0400 Body mass index (BMI) [Ratio] 20.5 kg/m2 [facility] 09-30-2023 14:31-0400 Body weight 55.79 kg [facility] 09-30-2023 14:31-0400 Diastolic blood pressure 62 mm[Hg] [facility] 09-30-2023 14:31-0400 Heart rate 64 /min [facility] 09-30-2023 14:31-0400 Systolic blood pressure 104 mm[Hg] [facility] 09-17-2023 08:00-0400 Blood Pressure Location Roman GUAN [facility] 09-17-2023 08:00-0400 Diastolic blood pressure 80 mm[Hg] Roman GUAN [facility] 09-17-2023 08:00-0400 Heart rate 64 /min Romanarminda GUAN [facility] 09-17-2023 08:00-0400 Systolic blood pressure 132 mm[Hg] Roman GUAN [facility] 01-10-2023 09:45-0400 Body height 165.1 cm Savanna Higgins Other [facility] Other 01-10-2023 09:45-0400 Body mass index (BMI) [Ratio] 20.87 kg/m2 Savanna Higgins Other [facility] Other 01-10-2023 09:45-0400 Body weight 56.88 kg Savanna Higgins Other [facility] Other 01-10-2023 09:45-0400 Diastolic blood pressure 78 mm[Hg] Savanna Higgins Other [facility] Other 01-10-2023 09:45-0400 Systolic blood pressure 142 mm[Hg] Savanna Higgins Other [facility] Other 10-28-2022 08:30-0400 Body height 165.1 cm Savanna Higgins Other [facility] Other 10-28-2022 08:30-0400 Body mass index (BMI) [Ratio] 20.47 kg/m2 Savanna Higgins Other [facility] Other 10-28-2022 08:30-0400 Body weight 55.79 kg Savanna Higgins Other [facility] Other 10-28-2022 08:30-0400 Diastolic blood pressure 47 mm[Hg] Savanna Higgins Other [facility] Other 10-28-2022 08:30-0400 Systolic blood pressure 124 mm[Hg] Savanna Higgins Other [facility] Other Encounters Encounter Date Encounter Type Care Provider Facility Start: 10-13-2023 End: 10-13-2023 ambulatory Roman GUAN Facility:[facility] Start: 10-13-2023 End: 10-13-2023 Patient encounter procedure Roman GUAN [facility] Start: 09-30-2023 End: 09-30-2023 ambulatory [facility] Work Phone: Start: 09-30-2023 End: 09-30-2023 Patient encounter procedure [facility] Work Phone: Start: 09-17-2023 End: 09-17-2023 ambulatory Roman GUAN Facility:[facility] Start: 09-17-2023 End: 09-17-2023 Patient encounter procedure Roman GUAN [facility] Start: 09-11-2023 ambulatory Roman GUAN Facility :[facility] Start: 09-09-2023 Non-patient / Non-visit [facility] [email or web address] Work Phone: Start: 08-26-2023 End: 08-26-2023 ambulatory [facility] Work Phone: Start: 08-26-2023 End: 08-26-2023 Patient encounter [facility]: Start: 03-28-2023 End: 03-28-2023 ambulatory Savanna Higgins Other [facility] Other Start: 03-28-2023 Telephone encounter Savanna Higgins [facility] Start: 01-31-2023 End: 01-31-2023 ambulatory Savanna Higgins Other [facility] Other Start: 01-31-2023 Nursing evaluation o f patient and report Savanna Higgins [facility] Start: 01-14-2023 End: 01-14-2023 ambulatory Savanna Higgins Other [facility] Other Start: 01-14-2023 Telephone encounter Savanna Higgins [facility] Start: 01-10-2023 End: 01-10-2023 ambulatory Savanna Higgins Other [facility] Other Start: 01-10-2023 Office outpatient visit 15 minutes Savanna Higgins [facility] Start: 10-28-2022 End: 10-28-2022 ambulatory Savanna Higgins Other [facility] Other Start: 10-28-2022 Patient encounter procedure Savanna Higgins [facility] Start: 10-24-2022 End: 10-24-2022 ambulatory Savanna Higgins Other [facility] Other Start: 10-24-2022 Telephone encounter Savanna Higgins [facility] Start: 10-08-2022 End: 10-08-2022 ambulatory KYLEIGHRONY ESQUIVELLALAMIERICY [...] 12-31-2021 Adult health examination Savanna Higgins Other [facility] Other Start: 12-31-2021 End: 01-01-[address] SAVANNA HIGGINS Facility:[facility] Start: 12-25-2021 End: 12-26-[address] VALENTINA BECKER . Facility:[facility] Start: 12-19-2021 End: 12-20-[address] VALENTIAN BECKER . Facility:[facility] Start: 11-07-2021 End: 11-08-2021 [...] Patient Education Low back pain in adults [facility] Work Phone: Immunizations Immunization Date Immunization Notes Care Provider Fa cility 02-14-2023 influenza virus vaccine, unspecified formulation Roman GUAN [facility] 03-12-2022 SARS-CoV-2 (COVID-19 ) [id number] Roman GUAN [facility] Comment on above: Result Comment: 2023: [id number] 02-28-2022 influenza virus vaccine, split virus (incl. purified surface antigen) Savanna Higgins Other [facility] Other 02-28-2022 influenza virus vaccine, unspecified formulation [facility] 11-09-2021 SARS-CoV-2 (COVID-19 ) mRNA-1273 vaccine Roman GUAN [facility] Comment on above: Result Comment: 2023: [id number] 03-08-2021 SARS-CoV-2 (COVID-19 ) mRNA-1273 vaccine Roman GUAN [facility] 02-27-2021 influenza virus vaccine, split virus (incl. purified surface antigen) Savanna Higgins Other [facility] Other 02-27-2021 influenza virus vaccine, unspecified formulation [facility] 06-29-2020 SARS-CoV-2 (COVID-19 ) mRNA-1273 vaccine Roman GUAN [facility] 06-01-2020 SARS-CoV-2 (COVID-19 ) mRNA-1273 vaccine Roman UGAN [facility] 03-14-2020 zoster vaccine recombinant Roman GUAN [facility] 02-16-2020 influenza virus vaccine, split virus (incl. purified surface antigen) Savanna Higgins Other [facility] Other 02-16-2020 influenza virus vaccine, unspecified formulation [facility] 10-25-2019 pneumococcal polysaccharide vaccine, 23 valent Savanna Higgins Other [facility] 01-25-2019 influenza virus vaccine, unspecified formulation Roman GUAN [facility] 03-10-2018 pneumococcal conjuga te vaccine, 13 valent Savanna Higgins Other [facility] 02-14-2018 influenza virus vaccine, unspecified formulation Roman GUAN [facility] 01-08-2017 influenza virus vaccine, split virus (incl. purified surface antigen) Savanna Higgins Other [facility] Other 01-08-2017 influenza virus vaccine, unspecified formulation [facility] 02-06-2016 influenza virus vaccine, split virus (incl. purified surface antigen) Savanna Higgins Other [facility] Other 02-06-2016 influenza virus vaccine, unspecified formulation [facility] 03-24-2015 influenza virus vaccine, split virus (incl. purified surface antigen) Savanna Higgins Other [facility] Other 03-24-2015 influenza virus vaccine, unspecified formulation [facility] 02-26-2013 tetanus and diphther ia toxoids, adsorbed, preservative free, for adult use (5 Lf of tetanus toxoid and 2 Lf of diphtheria toxoid) Savanna Higgins Other [facility] Payers Date Payer Category Payer Medicare [id number] 1960 Medicare [id number] 1940 Unknown [id number] 2.16.84 [id number] 1940 Unknown [id number] 2.16.84 [id number] 1940 Unknown [id number] 2.16.84 [id number] 1940 Unknown [id number] 2.16.84 0.1.817676.3.579.2.593 1940 Unknown [id number] 2.16.84 0.1.558038.3.579.2.593 1940 Unknown [id number] 2.16.84 0.1.731401.3.579.2.593 1940 Unknown [id number] 2.16.84 0.1.547311.3.579.2.593 1940 Unknown [id number] 2.16.84 0.1.954544.3.579.2.593 1940 Unknown [id number] 2.16.84 0.1.873394.3.579.2.593 1939 Unknown [id number] 2.16.84 0.1.594881.3.579.2.593 1939 Unknown [id number] 2.16.84 0.1.605363.3.579.2.593 1939 Unknown [id number] 2.16.84 0.1.693759.3.579.2.593 1940 Unknown [id number] 2.16.8 40.1.479453.3.579.2.727 1940 Unknown [id number] 2.16.8 40.1.131003.3.579.2.727 1940 Unknown [id number] 2.16.8 [id number] Private Health Insurance [id number] Social History Date Type Detail Facility Unknown if ever smoked [facility] Other Sex Assigned At [facility] Start: 1940 Sex Assigned At Female F [facility] Start: 09-17-2023 End: 10-13-2023 Tobacco smoking status Never smoked tobacco (finding) [facility] Tobacco smoking status Never [facility] Functional Status Date Assessment Result Facility 10-13-2023 Functional Status N/A [facility] 09-17-2023 Functional Status N/A [facility] Clinical Notes 12-19-2021 to 10-13-2023 Note Date & Type Note Facility 10-13-2023 Hospital Discharg e instructions Patient Education 10/13/2023 13:39:08 Kidney Stones, Skzr-kd-Hmwc Kidney Stones Kidney stones are rock-like masses [...] Follow these instructions at home: Medicines Take optf-bbl-veztsog and prescription medicines only as told by [...] provider. Document Revised: 12/31/2021 Document Reviewed: 12/31/2021 [employer] Patient Education 2022 [employer]. Follow Up Care 09/17/2023 08:40:02 With:SHANNON SALGUERO, Roman Mitchell, URL Address: [facility] [address] [place] [address]- [phone] When: Unknown [facility] 09-17-2023 Hospital Discharg e instructions Patient [...] Follow these instructions at home: Medicines Take phwg-kep-vyjrwic and prescription medicines only as told by [...] provider. Document Revised: 08/07/2022 Document Reviewed: 08/07/2022 [employer] Patient Education 2022 [employer]. Follow Up Care 09/11/2023 08:49:49 With:SHANNON SALGUERO, Roman R, URL Address: [facility] [address], [place] [address]- When: Unknown [facility] 01-31-2023 Evaluation note Encounter Date Diagnosis Assessment Notes Jan, Seasonal allergic rhinitis, unspecified trigger (ICD-10 - J30.2) [facility] Other 09-01-2023 Evaluation note* Encounter Date Diagnosis Assessment Notes Treatment Notes Treatment Clinical Notes Jan, Piriformis syndrome of left side (ICD-10 - G57.02) Unable to add more tramadol - likely has pain clinic w [facility]. PT order printed. Add steroids. Also gave copies of home exercises. [facility] Other 06-19-2023 Evaluation note* Encounter Date Diagnosis [...] - order handwritten and given to pt [facility] Other 04-27-2023 NoteCONSULTATION CONSULTATION DATE: 09/05/2022 TO: [...] our patients to inform us about any shhy-myv-zywzizp medications or herbal remedies/nutritional supplements/alternative remedies. 2. [...] treatment options with their primary care provider.[id number] Note CONSULTATION PROCEDURE DATE: 12/25/2021 PREOPERATIVE DIAGNOSIS: [...] procedurally range of motion exercises are performed.[facility] 12-19-2021 NoteCONSULTATION CONSULTATION DATE: 12/19/2021 This is [...] where she was seen by the physician fast food sales assistant in the office and received left [...] the plan of care, to be contacted [facility] Future Appointments Appointment Date:10/13/2023 12:15:00 PM Scheduled Provider:Roman GUAN MD Location:[facility] Appointment Type:URO Office Visit [facility] Evaluation noteNo InformationNort Sambazon Other Evaluation noteNo assessment information available [facility] Work Phone: Evaluation note* Diagnosis Onset Date Resolution Status Right lumbar pain acute [facility] Work Phone: History general Narrative - Reported* Type Description Date Medical History migraine headache Medical History dizziness Medical History tremors Surgical History hysterectomy Surgical History bunionectomy Surgical History stapedectomy Hospitalization History see above [facility] Other Hospital course Narrative No data available for this section [facility] note No data available for this section [facility] Summary Purpose Family History No [...] and content) DATE CREATED AUTHOR 10/18/2022 [facility] [place] [facility] DATE CREATED AUTHOR AUTHOR'S ORGANIZ ATION 10/16/2023 [facility] REASON FOR VISIT (unrecogniz ed section [...] BE BASED ON THE PRIMARY CLINICAL RECORDS. [facility] [employer] [facility]. provides no warranty or guarantee of the accuracy or completeness of information in this document.
== END 2023-11-17 08:24 | disposition home or self-care (01) ==
LOC: MAMMO 08:23
PROVIDERS: PCP Family Medicine; Visit Provider Family Medicine
DX: Z12.31 Encounter for screening mammogram for malignant neoplasm of breast (principal); Z80.41 Family history of malignant neoplasm of ovary
CPT/HCPCS: 77063; 77067

== ENCOUNTER 2023-11-25 13:20 | Outpatient (OUT) | payer MEDICARE, SELFPAY ==
--- NOTE | 2023-11-25 | CONS_ITS ---
CONSULTATION DATE: 11/25/2023 TO: Savanna Guajardo M.D. HISTORY: She presents today complaining of 5/10 pain in her lower back bilaterally, described as sharp, stabbing pain, increased with activity such as standing, walking and performing transitioning maneuvers. She feels most comfortable in the semi-recumbent position. Denies any change in bowel and bladder habits or new sensorimotor changes in the lower extremities. She has been out of her diclofenac for quite some time now. She has undergone activity modification since onset of her symptomatology. EXAMINATION: Notable for patient having severe pain with lumbar facet loading maneuvers, occurring bilaterally from approximately L4-S1, with associated myofascial spasms of the erector spinae muscle. 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 RECOMMENDATIONS: I recommend she restart her diclofenac 50 mg b.i.d. and aquatic therapy and to proceed with CT scan of her lumbar spine without contrast. As part of providing excellent, safe, comprehensive care, the following was completed at our patient's visit: 1. A medication reconciliation and review to ensure accurate knowledge of current/active medications, including asking our patients to inform us about any mzvm-bug-jvzwphn medications or herbal remedies/nutritional supplements/alternative remedies. 2. A review to specifically ensure our patients have had annual screening for: elevated body mass index (BMI, see intake chart for exact total), tobacco use, screening for depression, and screening for unhealthy alcohol use. When screening is concerning, patients are provided with education and the specific recommendation to discuss the concerning health issue and treatment options with their primary care provider. [facility]
--- OUTSIDE RECORDS SUMMARY | 2023-11-25 13:32 | XMS_ITS ---
Patient Summarization (C-CDA 2.1 CCD) Created on: November 25, 2023 Eduardo Lea : 1940 Sex: Female Author Organization Sample organization Care Team Providers Care Laboratory Equipment Cleaner Name Role Phone GISELA, DR SAVANNA Willis [...] DR VALENTINA Rothman Consulting Unavailable LAKSHMIPATHY ., AJ Admitting Jessy vailable LAKSHMIPATHY ., AJ Consulting Jessy vailable LAKSHMIPATHY ., AJ Attending Jessy vailable HIGGINS, DR SAVANNA Willis Primary Care Unavailable HIGGINS, DR SAVANNA Willis Primary Care Unavailable HIGGINS, DR SAVANNA Willis Attending Unavailable KLAMATH, DR MINE Barriga Consulting Unavailable HIGGINS, DR SAVANNA Willis Admitting Unavailable HIGGINS, DR SAVANNA Willis Consulting Unavailable HIGGINS, DR SAVANNA Willis Attending Unavailable HIGGINS, DR SAVANNA Willis Admitting Unavailable BIRGIT, DR PB Mitchell Consulting Unavailable HIGGINS, DR SAVANNA Willis Primary Care Unavailable HIGGINS, DR SAVANNA Willis Consulting Unavailable GISELA, DR SAVANNA Willis Primary Care Unavailable LAKSHMIPATHY ., NARPAULINA Attending Jessy vailable LAKSHMIPATHY ., NARENDLOWELLATH Admitting Jessy vailable LAKSHMIPATHY ., NARENDLOWELLATH Consulting Jessy vailable RASTEDIOR, ISAEL Consulting Unavailable GISELA, DR SAVANNA Willis Primary Care Unavailable HIGGINS, DR SAVANNA Willis Consulting Unavailable HIGGINS, DR SAVANNA Willis Attending Unavailable HIGGINS, DR SAVANNA Willis Admitting Unavailable BECKER ., DR VALENTINA Rothman Admitting Unavailable BECKER ., DR VALENTINA Rothman Consulting Unavailable BECKER ., DR VALENTINA Rothman Attending Unavailable GISELA, DR SAVANNA Willis Primary Care Unavailable BECKER ., DR VALENTINA Rothman Admitting Unavailable BECKER ., DR VALENTINA Rothman Attending Unavailable GISELA, DR SAVANNA Willis Primary Care Unavailable GISELA, DR SAVANNA Willis Consulting Unavailable VALERA ., JOLYNN Consulting Unavailable GISELA, DR SAVANNA Willis Primary Care Unavailable LAKSHMIPATHY ., NARENDRANATH Attending Jessy vailable LAKSHMIPATHY ., NARENDRANATH Admitting Jessy vailable LAKSHMIPATHY ., NARENDRANATH Consulting Jessy vailable Savanna Higgins Unavailable SAVANNA HIGGINS Primary Care Physician [phone] Roman GUAN Attending Unavailable Roman GUAN Attending Unavailable Encounters Encounter Date Encounter Type Care Provider Facility Start: 11-18-2023 End: 11-18-2023 ambulatory [facility] Work Phone: Start: 11-18-2023 End: 11-18-2023 Patient encounter procedure [facility] Work Phone: Start: 11-10-2023 Patient encounter procedure [facility] Start: 11-06-2023 End: 11-06-2023 Patient encounter procedure [facility] Work Phone: Start: 10-13-2023 End: 10-13-2023 ambulatory Roman GUAN Facility:[facility] Start: 10-13-2023 End: 10-13-2023 Patient encounter procedure Roman GUAN [facility] Start: 09-30-2023 End: 09-30-2023 ambulatory [facility] Work Phone: Start: 09-30-2023 End: 09-30-2023 Patient encounter procedure [facility] Physician [facility] Work Phone: Start: 09-17-2023 End: 09-17-2023 ambulatory Roman GUAN Facility:[facility] Start: 09-17-2023 End: 09-17-2023 Patient encounter procedure Roman GUAN [facility] Start: 09-11-2023 ambulatory Roman GUAN Facility : [facility] Start: 09-09-2023 Non-patient / Non-visit [facility] Work Phone: Start: 08-26-2023 End: 08-26-2023 ambulatory [facility] Work Phone: Start: 08-26-2023 End: 08-26-2023 Patient encounter procedure [facility] Start: 03-28-2023 End: 03-28-2023 ambulatory Savanna Higgins Other [facility] Other Start: 03-28-2023 Telephone encounter Savanna Higgins [facility] Start: 01-31-2023 End: 01-31-2023 ambulatory Savanna Higgins Other [facility] Other Start: 01-31-2023 Nursing evaluation o f patient and report Savanna Higgins [facility] Start: 01-14-2023 End: 01-14-2023 ambulatory Savanna Higgins Other [facility] Other Start: 01-14-2023 Telephone encounter Savanna Higgins [facility] Start: 01-10-2023 End: 01-10-2023 ambulatory Savanna Higgins Other [facility] Other Start: 01-10-2023 Office outpatient visit 15 minutes Savanna Higgins [facility] Start: 10-28-2022 End: 10-28-2022 ambulatory Savanna Higgins Other [facility] Other Start: 10-28-2022 Patient encounter procedure Savanna Gisela [facility] Start: 10-24-2022 End: 10-24-2022 ambulatory Savanna Higgins Other [facility] Other Start: 10-24-2022 Telephone encounter Savanna Higgins [facility] Start: 10-08-2022 End: 10-08-2022 ambulatory AJ ARCEO [...] 12-31-2021 Adult health examination Savanna Higgins Other [facility] Other Start: 12-31-2021 End: 01-01-[address] SAVANNA HIGGINS Facility:[facility] Start: 12-25-2021 End: 12-26-[address] VALENTINA BECKER . Facility:[facility] Start: 12-19-2021 End: 12-20-[address] VALENTINA BECKER . Facility:[facility] Start: 11-07-2021 End: 11-08-[address] SAVANNA HIGGINS Facility:[facility] Immunizations Immunization Date Immunization Notes Care Provider Fa cility 02-14-2023 influenza virus vaccine, unspecified formulation Roman GUAN [facility] 03-12-2022 SARS-CoV-2 (COVID-19 ) [id number].[id number] Roman GUAN [facility] Comment on above: Result Comment: 2023: TPV80 02-28-2022 influenza virus vaccine, split virus (incl. purified surface antigen) Savanna Higgins Other [facility] Other 02-28-2022 influenza virus vaccine, unspecified formulation [facility] 11-09-2021 SARS-CoV-2 (COVID-19 ) mRNA-1273 vaccine Roman GUAN [facility] Comment on above: Result Comment: 2023: TPV80 03-08-2021 SARS-CoV-2 (COVID-19 ) mRNA-1273 vaccine Romanarminda GUAN [facility] 02-27-2021 influenza virus vaccine, split virus (incl. purified surface antigen) Savanna Higgins Other [facility] Other 02-27-2021 influenza virus vaccine, unspecified formulation [facility] 06-29-2020 SARS-CoV-2 (COVID-19 ) mRNA-1273 vaccine Romanarminda GUAN [facility] 06-01-2020 SARS-CoV-2 (COVID-19 ) mRNA-1273 vaccine Romanarminda GUAN [facility] 03-14-2020 zoster vaccine recombinant Roman GUAN [facility] 02-16-2020 influenza virus vaccine, split virus (incl. purified surface antigen) Savanna Higgins Other [facility] Other 02-16-2020 influenza virus vaccine, unspecified formulation [facility] 10-25-2019 pneumococcal polysaccharide vaccine, 23 valent Savanna Higgins Other [facility] 01-25-2019 influenza virus vaccine, unspecified formulation Romanarminda GUAN [facility] 03-10-2018 pneumococcal conjuga te vaccine, 13 valent Savanna Higgins Other [facility] 02-14-2018 influenza virus vaccine, unspecified formulation Roman GUAN [facility] 01-08-2017 influenza virus vaccine, split virus (incl. purified surface antigen) Savanna Higgins Other [facility] Other 01-08-2017 influenza virus vaccine, unspecified formulation [facility] 02-06-2016 influenza virus vaccine, split virus (incl. purified surface antigen) Savanna Higgins Other [facility] Other 02-06-2016 influenza virus vaccine, unspecified formulation [facility] 03-24-2015 influenza virus vaccine, split virus (incl. purified surface antigen) Savanna Higgins Other [facility] Other 03-24-2015 influenza virus vaccine, unspecified formulation [facility] 02-26-2013 tetanus and diphther ia toxoids, adsorbed, preservative free, for adult use (5 Lf of tetanus toxoid and 2 Lf of diphtheria toxoid) Savanna Higgins Other [facility] Medications Current Medications Medication Drug Class(es) Dates Sig (Normalized) Sig (Original) atenolol 50 mg oral tablet (5 sources) beta-Adrenergic Tera Start: 09-17-2023 take 50 [...] Refill(s) 0 Start Date: 09/17/23 Status: Ordered Fish Oils (2 sources) Start: 02-19-2010 take 1 tablet by mouth once daily [place]-3 Fish Oil 1 tab, Oral, Daily, Refill(s) [...] 6 hours prn for 30 days Active meloxicam 7.5 mg oral tablet (2 sources) Nonsteroidal Anti-inflammatory Drug Start: 10-02-2023 End: 11-18-2023 take 7.5 mg by mouth once daily Meloxicam Active 7.5 MG PO Daily November 18, 2023 11:23am methylPREDNISolone 4 mg oral tablet (2 sources) Corticosteroid Start: 09-30-2023 take 1 tablet by [...] Multivitamin preparation (7 sources) Multivitamin Act marysol mupirocin 0.02 mg/mg topical ointment (1 source) RNA Synthetase Inhibitor Antibacterial Start: 11-18-2023 Mupirocin Active 1 APPLIC TOPICAL Twice daily November 18, 2023 12:00am predniSONE 20 mg oral tablet (5 sources) [...] day(s), # 30 cap(s), Refills(s) 0, Pharmacy: [facility]/pharmacy #[id number], 56.1, kg, 09/17/23 8:03:00 EDT, Weight Dosing Start Date: 09/17/23 Stop Date: 10/17/23 Status: Ordered tiZANidine 2 mg oral tablet (2 sources) Central alpha-2 Adrenergic Agonist Start: 09-30-2023 take [...] Drug Class(es) Dates Sig (Normalized) Sig (Original) diclofenac potassium 25 mg oral tablet (12 sources) Nonsteroidal Anti-inflammatory Drug Start: 10-02-2023 End: 10-02-2023 take 25 mg by mouth twice daily Diclofenac Potassium Discontinued 25 MG PO Twice daily October 02, 2023 11:30am October 02, 2023 4:24pm Start: 09-29-2023 End: 10-02-2023 take 25 mg by mouth four times daily Diclofenac Potassium Discontinued 25 MG PO Four times daily September 29, 2023 12:00am October 02, 2023 11:31am Start: 09-17-2023 diclofenac sod ium 50 mg Oral EC Tab 50 mg = 1 tab(s), Oral Start Date: 09/17/23 Status: Ordered take 1 tablet by [facility] four times daily at mealtime as needed Diclofenac Potassium 25 MG 1 tablet with food or milk as needed Orally Four times a day Active 24 hr metoprolol succinate 25 mg extended release oral capsule (9 sources) beta-Adrenergic Tera Start: 09-29-2023 End: 09-30-2023 take 25 mg by mouth once daily Metoprolol Succinate Discontinued 25 MG PO Daily September 29, 2023 12:00am September 30, 2023 2:41pm Metoprolol Succi olena 25 MG 1 tablet once a day Active triamcinolone acetonide 40 mg/ml injectable suspension (10 sources) Corticosteroid Start: 09-25-2022 Kenalog-40 Jan, 60 mg Payers Date Payer Category Payer Medicare [id number] 1960 Medicare [id number] 1940 Unknown [id number] 2.16.84 [id number] 1940 Unknown [id number] 2.16.84 0.1.424393.3.579.2.593 1940 Unknown [id number] 2.16.84 0.1.280616.3.579.2.593 1940 Unknown [id number] 2.16.84 0.1.536360.3.579.2.593 1940 Unknown [id number] 2.16.84 0.1.725027.3.579.2.593 1940 Unknown [id number] 2.16.84 0.1.812592.3.579.2.593 1940 Unknown [id number] 2.16.84 0.1.771405.3.579.2.593 1940 Unknown [id number] 2.16.84 0.1.475834.3.579.2.593 1940 Unknown [id number] 2.16.84 0.1.478168.3.579.2.593 1940 Unknown [id number] 2.16.84 0.1.943200.3.579.2.593 1940 Unknown [id number] 2.16.84 0.1.762236.3.579.2.593 1940 Unknown [id number] 2.16.84 0.1.574627.3.579.2.593 1940 Unknown [id number] 2.16.8 40.1.517241.3.579.2.727 1940 Unknown [id number] 2.16.8 40.1.068553.3.579.2.727 1940 Unknown [id number] 2.16.8 40.1.551574.3.579.2.727 Private Health Insurance [id number] Plan of Treatment Date Care Activity Detail Author Diagnostic radiograp hy of abdomen [facility] MG Breast - bilatera l Screening [facility] Patient Education Low back pain in adults [facility] Work Phone: Problems Active Problems Problem Classification Problem Date Documented Date Episodic/Chronic Calculus of urinary tract (9 sources) Ureteric stone; Translations: [Calculus of ureter] [...] conditions (not mental disorders or infectious disease) (7 sources) Encounter for screening mammogram for malignant neoplasm of breast; Translations: [Patient encounter status] Onset: 11-07-2021 Episodic Other skin disorders (5 [...] Spondylosis; intervertebral disc disorders; other back problems (8 sources) Cervicalgia; Translations: [Lumbago] Onset: 09-05-2022 Episodic [...] HX MALIGNANT NEOPLASM OVARY] Onset: 11-09-2021 Episodic Procedures Date Procedure Procedure Detail Performing Clinician [...] Roman Rothman Comment on above: right ear Results Test Name Value Interpretation Reference Range Facility RAD - CT Reporton 10-15-20[address] - [address] Report [id number]# 1.00TIFF Normal [facility] Ambulatory Visit Summaryon 0 10-13-2023 Ambulatory Visit Summary EDUARDO LEA :1940 Visit Date:10/13/2023 Ambulatory Visit Instructions Your Diagnosis Kidney stones History of kidney stones Tests Performed CT Abdomen/Pelvis w/o Contrast -- Results Pending -- Please visit your patient portal for your results or contact your primary care physician. Your Care Team Attending Physician - Roman GUAN MD Primary Care Physician - SAVANNA HIGGINS MD This Is Your Medications List Contact prescribing physician if questions or concerns atenolol (atenolol 50 mg Tab) calcium-vitamin D (Caltrate 600 with D) chondroitin-glucosam ine (Osteo Bi-Flex) diclofenac (diclofenac sodium 50 mg Oral EC Tab) meclizine (meclizine 25 mg Tab) multivitamin (Multiple Vitamins oral capsule) omega-3 polyunsaturated fatty acids ([place]-3 Fish Oil) tamsulosin (Flomax 0.4 mg Cap) [...] Following Appointments Follow Up with SHANNON SALGUERO, Roman Mitchell, URL When: Where: [facility] [address] [place] [address] [phone] Medications What How Much When Instructions Unchanged [...] or concerns Unchanged omega-3 polyunsaturated fatty acids ([place]-3 Fish Oil) 1 tab By Mouth Every [...] the groin. (more content not included)... Normal [facility] Patient Educationon 10-13-19 24 Patient Education [...] these instructions at home: Medicines ? Take kijx-rsi-xhumjkv and prescription medicines only as told by [...] provider. Document Revised: 12/31/2021 Document Reviewed: 12/31/2021 ElseNPTV Patient Education ? 2022 [employer]. [facility] Urology Office/Clinic Noteon 10-13-2023 Urology Office/Clinic Note [...] pass, required surgery 2 years ago in [place], [place]. Was told at this time that she had a puncture in her kidney that would heal. Follow-up With When Contact Information SHANNON SALGUERO, Roman Mitchell, URL [facility] [address], [place] [address]- [phone] Additional Instructions: f/u pending CT scan Patient Education Kidney Stones, Zjuy-nu-Rfdj Anabella Webber, personally scribed for Dr. Guan on 10/13/2023 13:39:26. . Documentation recorded by the scribeAnabella, accurately reflects the services(s) I performed and [...] Vitamins oral capsule, 1 cap(s), Oral, Daily [place]-3 Fish Oil, 1 tab, Oral, Daily Osteo [...] virus vaccine, inactivated 02/14/2023 Recorded SARS-CoV-2 (COVID-19) [id number].[id number] 03/12/2022 Recorded 2023-10-13: TPV80 influenza virus vaccine, inactivated 02/28/2022 Recorded SARS-CoV-2 (COVID-19) mRNA-1273 vaccine 11/09/2021 Recorded 2023-10-13: TPV80 SARS-CoV-2 (COVID-19) mRNA-12 (more content not included)... Normal [facility] Comment on above: Result Comment: Elec tronically Signed By: Roman GUAN MD\.br\Date and Time Signed: 10/13/23 13:41 EDT\.br\Electronically Co-Signed By: Anabella Villalta.br\Date and Time Co-Signed: 10/13/23 13:39 EDT RAD - MISCon 10-12-2023 RAD - MISC [id number] #1.00TIFF [facility] ED Note-Physicianon 09-18-19 ED Note-Physician [id number] 8#1.00TIFF Normal [facility] Formson 09-18-2023 Forms [id number] #1.00TIFF Normal [facility] RAD - CT Reporton 09-18-2023 [address] - CT Report [id number] 8#1.00TIFF Normal [facility] RAD - MISCon 09-18-2023 RAD - MISC [id number] 9#1.00TIFF [facility] RAD - MISC [id number]# 1.00TIFF [facility] RAD - MISC [id number] 1#1.00TIFF [facility] Ambulatory Visit Summaryon 0 09-17-2023 Ambulatory Visit [...] Vitamins oral capsule) omega-3 polyunsaturated fatty acids ([place]-3 Fish Oil) zolmitriptan (Zomig 5 mg oral tablet) Procedures Performed right cataract extraction with intraocular lens implantation (02/28/2014), Bunionectomy, Cataract extraction and insertion of intraocular lens, cervical herniated disc removed, Hysterectomy and bilateral salpingo-oophorectom y sample, stapidectomy. Discharge Vitals Heart Rate (Peripheral) 64 Blood Pressure 132/80 Weight 56.1 kg Weight 123.42 lb What to do next Scheduled Follow-Up Appointments Friday. 2023 12:15 PM EDT With: SHANNON SALGUERO, Roman Mitchell Where: [facility] [place] Normal [facility] Patient Educationon 09-17-19 24 Patient Education Urology Kidney Stones Kidney [...] these instructions at home: Medicines ? Take czcf-pht-ofgwmrr and prescription medicines only as told by [...] from (more content not included)... Normal [facility] Urology Office/Clinic Noteon 09-17-2023 Urology Office/Clinic Note Chief Complaint New pt HPI Staff 1 week follow up w/[facility]-09/15/23-[facility] Pt was seen at [facility] on 09/09/[address] to [address] [...] yo female new pt following up to [facility] ED visit 09/09/23 due to intermittent L [...] pass, required surgery 2 years ago in [place] Was told at this time that [...] [address] ct[address] SEs discussed. Rx sent to [facility] [place]. -High fluid intake. -Pt to call or go to the ER if he were to experience fever, shaking, chills, uncontrolled nausea, vomiting, or pain. Follow-up With When Contact Information SHANNON SALGUERO, Roman Mitchell, URL [facility] [address] [place] [address]- Additional Instructions: 3 weeks with [facility] Patient [...] Vitamins oral capsule, 1 cap(s), Oral, Daily [place]-3 Fish Oil, 1 tab, Oral, Daily Osteo [...] Lab Results (more content not included)... Normal [facility] Comment on above: Result Comment: Elec tronically Signed By: Roman GUAN MD\.br\Date and Time Signed: 09/17/23 08:41 EDT\.br\Electronically Co-Signed By: Cynthia Jones.br\Date and Time Co-Signed: 09/17/23 08:39 EDT Basophils Auto (Bld) [#/Vol] on 09-09-2023 Basophils (Bld) [#/Vol] 0.0 10 3/uL 0.0-0.[address] [facility] Basophils/100 WBC Auto (Bld) on 09-09-2023 Basophils/100 WBC (Bld) 0.4 % 0.2-2.[address] [facility] Casts typing in urine sedime nt by light microscopyon 09-09-2023 Casts LM Nom (Urine sed) NONE SEEN #/LPF NONE SEEN [facility] Eosinophils/100 WBC Auto (Bl d)on 09-09-2023 Eosinophils/100 WBC (Bld) 1.1 % 0.9-7.[address] [facility] Erythrocyte distribution wid th Auto (RBC) [Ratio]on 09-09-2023 Erythrocyte distribution width (RBC) [Ratio] 13.0 % 11.0-15.[address] [facility] Estimated glomerular filtrat ion rate (GFR) non- Americanon 09-09-2023 GFR/1.73 sq M.predicted among non-blacks MDRD (S/P/Bld) [Vol rate/Area] 52 mL/min/{1.73_m2} Low >=[address] [facility] Globulin Calc (S) [Mass/Vol] on 09-09-2023 Globulin (S) [Mass/Vol] 3.5 g/dL [facility] Hematocrit Auto (Bld) [Volum e fraction]on 09-09-2023 Hematocrit (Bld) [Volume fraction] 39.0 % 36.0-48.[address] [facility] Hemoglobin [Mass/volume] in Bloodon 09-09-2023 Hemoglobin (Bld) [Mass/Vol] 12.6 g/dL 12.0-16.[address] [facility] Laboratory - Chemistry and C hemistry - challengeon 09-09-2023 Albumin [Mass/Vol] 3.6 g/dL 3.4-5.0 [facility] ALP [Catalytic activity/Vol] 74 U/L 46-[address] [facility] ALT [Catalytic activity/Vol] 30 U/L 14-[address] [facility] AST [Catalytic activity/Vol] 24 U/L 15-[address] [facility] Bilirubin [Mass/Vol] 0.5 mg/dL 0.2-1.0 [facility] Bilirubin Ql (U) Negative NEGATIVE [facility] Calcium [Mass/Vol] 9.8 mg/dL 8.5-10.1 [facility] Chloride [Moles/Vol] 102 mmol/L 98-107 [facility] CO2 [Moles/Vol] 31.2 mmol/L 21.0-32.0 [facility] Creatinine [Mass/Vol] 1.01 mg/dL 0.55-1.02 [facility] GFR/1.73 sq M.predicted MDRD (S/P/Bld) [Vol rate/Area] mL/min/{1.73_m2} >=[address] [facility] Glucose (U) [Mass/Vol] Negative NEGATIVE [facility] Glucose [Mass/Vol] 100 mg/dL 74-106 [facility] Ketones Ql (U) Negative NEGATIVE [facility] Lipase [Catalytic activity/Vol] 25.0 U/L 16.0-77.[address] [facility] pH (U) 6.0 [pH] 5.0-9.[address] [facility] Potassium [Moles/Vol] 3.9 mmol/L 3.5-5.1 [facility] Protein [Mass/Vol] 7.1 g/dL 6.4-8.2 [facility] Sodium [Moles/Vol] 140 mmol/L 136-145 [facility] Specific gravity (U) [Rel density] 1.020 1.005-1.[address] [facility] Urea nitrogen [Mass/Vol] 22.0 mg/dL High 7.0-18.[address] [facility] Urea nitrogen/Creatinine [Mass ratio] 21.8 mg/mg [facility] Urobilinogen Qn (U) 0.2 {Sosa'U}/dL 0.2-1.[address] [facility] Laboratory - Hematology and Cell countson 09-09-2023 Immature granulocytes/100 WBC (Bld) 0.3 % 0.0-0.[address] [facility] Laboratory - Specimen inform ationon 09-09-2023 Appearance (U) CLEAR CLEAR [facility] Color (U) DK. YELLOW YELLOW [facility] Laboratory - Urinalysison Amorphous sediment LM Ql (Urine sed) RARE [facility] Leukocyte esterase Test strip Ql (U) TRACE Abnormal NEGATIVE [facility] Nitrite Ql (U) Negative NEGATIVE [facility] Protein Ql (U) Negative NEG/TRACE [facility] Leukocytes [#/volume] correc bill for nucleated erythrocytes in Blood by Automated counon 09-09-2023 WBC corrected for nucl RBC Auto (Bld) [#/Vol] 10.7 10 3/uL 4.0-11.[address] [facility] Lymphocytes Auto (Bld) [#/Vo l]on 09-09-2023 Lymphocytes (Bld) [#/Vol] 1.5 10 3/uL 1.2-3.[address] [facility] Lymphocytes/100 WBC Auto (Bl d)on 09-09-2023 Lymphocytes/100 WBC (Bld) 13.7 % Low 20.5-60.[address] [facility] MCH Auto (RBC) [Entitic mass ]on 09-09-2023 MCH (RBC) [Entitic mass] 31.2 pg 26.7-34.[address] [facility] MCHC Auto (RBC) [Mass/Vol]on 09-09-2023 MCHC (RBC) [Mass/Vol] 32.3 g/dL 29.9-35.2 [facility] MCV Auto (RBC) [Entitic vol] on 09-09-2023 MCV (RBC) [Entitic vol] 96.5 fL 81.0-99.[address] [facility] Monocytes Auto (Bld) [#/Vol] on 09-09-2023 Monocytes (Bld) [#/Vol] 1.0 10 3/uL High 0.3-0.[address] [facility] Monocytes/100 WBC Auto (Bld) on 09-09-2023 Monocytes/100 WBC (Bld) 9.5 % 1.7-12.[address] [facility] Mucus LM Ql (Urine sed)on Mucus Ql (Urine sed) NONE SEEN NONE SEEN [facility] Neutrophils Auto (Bld) [#/Vo l]on 09-09-2023 Neutrophils (Bld) [#/Vol] 8.0 10 3/uL High 1.4-6.5 [facility] [facility] Neutrophils/100 WBC Auto (Bl d)on 09-09-2023 Neutrophils/100 WBC (Bld) 75.0 % 43.0-75.[address] [facility] No Panel Informationon 09-08 Eosinophils # (Auto) 0.1 10 3/uL 0.0-0.7 [facility] Immature Granulocyte # (Auto) 0.03 10 3/uL 0.00-0.[address] [facility] Urine Bacteria NONE SEEN #/HPF NONE SEEN [facility] Urine Culture Reflexed NO [facility] Urine Microscopic Review YES [facility] Urine Occult Blood LARGE Abnormal NEGATIVE [facility] Urine Other Crystals Seen #/HPF Abnormal None Seen [facility] Urine RBC 10-20 #/HPF Abnormal 0-[address] [facility] Urine Squamous Epithelial Cells NONE SEEN #/LPF NONE/RARE [facility] Urine Uric Acid Crystals FEW [facility] Urine WBC 2-5 #/HPF Abnormal NONE SEEN [facility] Platelet mean volume Auto (B ld) [Entitic vol]on 09-09-2023 Platelet mean volume (Bld) [Entitic vol] 9.5 fL 9.5-13.[address] [facility] Platelets Auto (Bld) [#/Vol] on 09-09-2023 Platelets (Bld) [#/Vol] 240 10 3/uL 150-[address] [facility] RBC Auto (Bld) [#/Vol]on RBC (Bld) [#/Vol] 4.04 10 6/uL Low 4.20-5.40 [facility] Serum or plasma albumin/glob ulin mass ratioon 09-09-2023 Albumin/Globulin [Mass ratio] 1.0 {ratio} [facility] Serum or plasma anion gap de terminationon 09-09-2023 Anion gap [Moles/Vol] 10.7 mmol/L [facility] XR RIBS LT PA Stephen 3 XR RIBS LT PA CH EXAMINATION: XR [...] PB GENAO Date: 2022-10-02 11:51 Normal [facility] XR CSPINE 2_3 VIEWSon 2022 XR [...] ISAEL GRIFFIN Date: 2022-09-05 15:58 Normal [facility] CBC AUTO DIFFon 12-31-2021 BASO # 0.0 103/ul Normal 0.0-0.1 [facility] Comment on above: Performed By: #### C BC #### [facility] [address] [address] [address] Radha Land Basophils/100 WBC (Bld) 0.2 % Normal 0.2-2.0 [facility] Comment on above: Performed By: #### C BC #### [facility] [address] [address] [address] Radha Land EO # 0.2 103/ul Normal 0.0-0.7 [facility] Comment on above: Performed By: #### C BC #### [facility] [address] [address] [address] Radha Land Eosinophils/100 WBC (Bld) 1.7 % Normal 0.9-7.0 [facility] Comment on above: Performed By: #### C BC #### [facility] [address] [place] [address] Dr. Radha Land Erythrocyte distribution width (RBC) [Ratio] 13.4 % Normal 11.0-15.0 [facility] Comment on above: Performed By: #### C BC #### [facility] [address] [place] [address] Dr. Radha Land Hematocrit (Bld) [Volume fraction] 40.9 % Normal 36.0-48.0 [facility] Comment on above: Performed By: #### C BC #### [facility] [address] [place] [address] Dr. Radha Land Hemoglobin (Bld) [Mass/Vol] 13.1 g/dL Normal 12.0-16.0 [facility] Comment on above: Performed By: #### C BC #### [facility] [address] [place] [address] Dr. Radha Land IG # 0.05 10e3/ul Critically high 0.00-0.03 [facility] Comment on above: Performed By: #### C BC #### [facility] [address] [place] [address] Dr. Radha Land IG % 0.4 % Normal 0.0-0.5 [facility] Comment on above: Performed By: #### C BC #### [facility] [address] [place] [address] Dr. Radha Land LYMPH # 1.4 103/ul Normal 1.2-3.8 [facility] Comment on above: Performed By: #### C BC #### [facility] [address] [place] [address] Dr. Radha Land Lymphocytes/100 WBC (Bld) 10.8 % Critically low 20.5-60.0 [facility] Comment on above: Performed By: #### C BC #### [facility] [address] [place] [address] Dr. Radha Land MANUAL DIFF REQ NO Normal [facility] Comment on above: Performed By: #### C BC #### [facility] [address] [place] [address] Dr. Radha Land MCH (RBC) [Entitic mass] 31.5 pg Normal 26.7-34.0 [facility] Comment on above: Performed By: #### C BC #### [facility] [address] [place] [address] Dr. Radha Land MCHC (RBC) [Mass/Vol] 32.0 g/dL Normal 29.9-35.2 [facility] Comment on above: Performed By: #### C BC #### [facility] [address] [place] [address] Dr. Radha Land MCV (RBC) [Entitic vol] 98.3 fL Normal 81.0-99.0 [facility] Comment on above: Performed By: #### C BC #### [facility] [address] [place] [address] Dr. Radha Land MONO # 1.3 103/ul Critically high 0.3-0.8 [facility] Comment on above: Performed By: #### C BC #### [facility] [address] [place] [address] Dr. Radha Land Monocytes/100 WBC (Bld) 9.7 % Normal 1.7-12.0 [facility] Comment on above: Performed By: #### C BC #### [facility] [address] [place] [address] Dr. Radha Land NEUT # 10.2 103/ul Critically high 1.4-6.5 [facility] Comment on above: Performed By: #### C BC #### [facility] [address] [place] [address] Dr. Radha Land Neutrophils/100 WBC (Bld) 77.2 % Critically high 43.0-75.0 [facility] Comment on above: Performed By: #### C BC #### [facility] [address] [place] [address] Dr. Radha Land Platelet mean volume (Bld) [Entitic vol] 9.7 fL Normal 9.5-13.5 [facility] Comment on above: Performed By: #### C BC #### [facility] [address] [address] [address] Radha Land PLT 235 103/ul Normal 150-450 [facility] Comment on above: Performed By: #### C BC #### [facility] [address] [address] [address] Radha Land RBC 4.16 106/ul Critically low 4.20-5.40 [facility] Comment on above: Performed By: #### C BC #### [facility] [address] [address] [address] Radha Land WBC 13.2 103/ul Critically high 4.0-11.0 [facility] Comment on above: Performed By: #### C BC #### [facility] [address] [place] [address] Dr. Radha Land SED RATE WESTERGREN 2021 SED RATE 35 mm/hr Critically high <=30 [facility] Comment on above: Performed By: #### S EDR #### [facility] [address] [address] [address] Radha Land CBC AUTO DIFFon 11-07-2021 BASO # 0.0 103/ul Normal 0.0-0.1 [facility] Comment on above: Performed By: #### C BC ####[facility] [address] [address]DrHernandez Land Basophils/100 WBC (Bld) 0.3 % Normal 0.2-2.0 [facility] Comment on above: Performed By: #### C BC ####[facility] [address] [address]Dr. Radha Land EO # 0.2 103/ul Normal 0.0-0.7 [facility] Comment on above: Performed By: #### C BC ####[facility] [address] [address]DrHernandez Land Eosinophils/100 WBC (Bld) 3.3 % Normal 0.9-7.0 [facility] Comment on above: Performed By: #### C BC ####[facility] [address] [place], [place] [address]Dr. Radha Land Erythrocyte distribution width (RBC) [Ratio] 13.2 % Normal 11.0-15.0 [facility] Comment on above: Performed By: #### C BC ####[facility] [address] [place], [place] [address]Dr. Radha Land Hematocrit (Bld) [Volume fraction] 41.9 % Normal 36.0-48.0 [facility] Comment on above: Performed By: #### C BC ####[facility] [address] [place], [place] [address]Dr. Jacquelyncharlotte Land Hemoglobin (Bld) [Mass/Vol] 13.4 g/dL Normal 12.0-16.0 [facility] Comment on above: Performed By: #### C BC ####[facility] [address] [place], [place] [address]Dr. Radha Land IG # 0.01 10e3/ul Normal 0.00-0.03 [facility] Comment on above: Performed By: #### C BC ####[facility] [address] [place], [place] [address]Dr. Jacquelyncharlotte Land IG % 0.2 % Normal 0.0-0.5 [facility] Comment on above: Performed By: #### C BC ####[facility] [address] [place], [place] [address]Dr. Radha Land LYMPH # 1.6 103/ul Normal 1.2-3.8 [facility] Comment on above: Performed By: #### C BC ####[facility] [address] [place], [place] [address]Dr. Radha Land Lymphocytes/100 WBC (Bld) 27.5 % Normal 20.5-60.0 [facility] Comment on above: Performed By: #### C BC ####[facility] [address] [place], [place] [address]Dr. Radha Land MANUAL DIFF REQ NO Normal [facility] Comment on above: Performed By: #### C BC ####[facility] [address] [place], [place] [address]Dr. Radha Land MCH (RBC) [Entitic mass] 31.2 pg Normal 26.7-34.0 [facility] Comment on above: Performed By: #### C BC ####[facility] [address] [address]Dr. Radha Land MCHC (RBC) [Mass/Vol] 32.0 g/dL Normal 29.9-35.2 [facility] Comment on above: Performed By: #### C BC ####[facility] [address] [address]Dr. Radha Land MCV (RBC) [Entitic vol] 97.7 fL Normal 81.0-99.0 [facility] Comment on above: Performed By: #### C BC ####[facility] [address] [address]Dr. Radha Land MONO # 0.7 103/ul Normal 0.3-0.8 [facility] Comment on above: Performed By: #### C BC ####[facility] [address] [address]Dr. Radha Land Monocytes/100 WBC (Bld) 12.4 % Critically high 1.7-12.0 [facility] Comment on above: Performed By: #### C BC ####[facility] [address] [address]Dr. Radha Land NEUT # 3.2 103/ul Normal 1.4-6.5 [facility] Comment on above: Performed By: #### C BC ####[facility] [address] [address]Dr. Radha Emery Neutrophils/100 WBC (Bld) 56.3 % Normal 43.0-75.0 [facility] Comment on above: Performed By: #### C BC ####[facility] [address] [address]Dr. Radha Land Platelet mean volume (Bld) [Entitic vol] 9.4 fL Critically low 9.5-13.5 [facility] Comment on above: Performed By: #### C BC ####[facility] [address] [place], [place] [address]Yn. Radha Land PLT 226 103/ul Normal 150-450 [facility] Comment on above: Performed By: #### C BC ####[facility] [address] [place], [place] [address]Nd. Radha Land RBC 4.29 106/ul Normal 4.20-5.40 [facility] Comment on above: Performed By: #### C BC ####[facility] [address] [place], [place] [address]Ew. Radha Land WBC 5.7 103/ul Normal 4.0-11.0 [facility] Comment on above: Performed By: #### C BC ####[facility] [address] [place], [place] [address]Jv. Radha Land LIPID PROFILEon 11-07-2021 CHOL-HDL RATIO NORM SEE BELOW Normal [facility] Comment on above: Result Comment: 3.3 - 4.4 LOW RISK 4.4 - 7.1 AVERAGE RISK 7.1 - 11.0 MODERATE RISK >11.0 HIGH RISK Performed By: #### L IPID, CMP #### [facility] [address] [address] [address] Radha Land Cholesterol [Mass/Vol] 257 mg/dL Critically high <=200 [facility] Comment on above: Performed By: #### L IPID, CMP #### [facility] [address] [address] [address] Radha Land Cholesterol in HDL [Mass/Vol] 76 mg/dL Critically high 40-60 [facility] Comment on above: Performed By: #### L IPID, CMP #### [facility] [address] [address] [address] Radha Land Cholesterol in LDL [Mass/Vol] 163.8 mg/dL Normal [facility] Comment on above: Performed By: #### L IPID, CMP #### [facility] [address] [address] [address] Radha Land Cholesterol.total/Cho lesterol in HDL [Mass ratio] 3.4 {ratio} Normal [facility] Comment on above: Performed By: #### L IPID, CMP #### [facility] [address] [address] [address] Radha Land HDL NORMAL > or = 60 mg/dl - LOW CARDIOVASCULAR RISK <40 mg/dl - HIGH CARDIOVASCULAR RISK Normal [facility] Comment on above: Performed By: #### L IPID, CMP #### [facility] [address] [address] [address] Radha Land LDL CALC NORMAL SEE BELOW Normal [facility] Comment on above: Result Comment: <100 mg/dl OPTIMAL 100 - 129 mg/dl NEAR OR ABOVE OPTIMAL 130 - 159 mg/dl BORDERLINE HIGH 160 - 189 mg/dl HIGH >190 mg/dl VERY HIGH Performed By: #### L IPID, CMP #### [facility] [address] [address] [address] Radha Land Triglyceride [Mass/Vol] 86 mg/dL Normal <=150 [facility] Comment on above: Performed By: #### L IPID, CMP #### [facility] [address] [address] [address] Radha Land VLDL CALC 17.2 mg/dL Normal [facility] Comment on above: Performed By: #### L IPID, CMP #### [facility] [address] [address] [address] Radha Land MG MAMM SCREEN 3D GIANCARLO CADon 11-07-2021 MG MAMM SCREEN 3D GIANCARLO CAD Patient: EDUARDO LEA Exam Date: 11/07/2021 : 1940 Gender:F Ordering : DR SAVANNA HIGGINS M.D. Admission #: [id number] Family : Order #: [id number] CLICK HERE TO VIEW EXAM RADIOLOGY REPORT [...] ovarian cancer at age 47. LOCATION: [facility] BREAST COMPOSITION: Extremely dense, which lowers [...] Arriaga MD on 11/07/2021 at 11:21 Normal [facility] PROF 14(COMP METB)on 022 Albumin [Mass/Vol] 3.6 g/dL Normal 3.4-5.0 [facility] Comment on above: Performed By: #### L IPID, CMP #### [facility] [address] [place] [address] Dr. Radha Land Albumin/Globulin [Mass ratio] 0.9 {ratio} Normal [facility] Comment on above: Performed By: #### L IPID, CMP #### [facility] [address] [place] [address] Dr. Radha Land ALP [Catalytic activity/Vol] 79 U/L Normal 46-116 [facility] Comment on above: Performed By: #### L IPID, CMP #### [facility] [address] [place] [address] Dr. Radha Land ALT [Catalytic activity/Vol] 32 U/L Normal 14-59 [facility] Comment on above: Performed By: #### L IPID, CMP #### [facility] [address] [place] [address] Dr. Radha Land Anion gap [Moles/Vol] 6.1 mmol/L Normal [facility] Comment on above: Performed By: #### L IPID, CMP #### [facility] [address] [place] [address] Dr. Radha Land AST [Catalytic activity/Vol] 28 U/L Normal 15-37 [facility] Comment on above: Performed By: #### L IPID, CMP #### [facility] [address] [address] [address] Radha Land Bilirubin [Mass/Vol] 0.6 mg/dL Normal 0.2-1.0 [facility] Comment on above: Performed By: #### L IPID, CMP #### [facility] [address] [place] [address] Dr. Radha Land Calcium [Mass/Vol] 9.1 mg/dL Normal 8.5-10.1 [facility] Comment on above: Performed By: #### L IPID, CMP #### [facility] [address] [place] [address] Dr. Radha Land Chloride [Moles/Vol] 104 mmol/L Normal 98-107 [facility] Comment on above: Performed By: #### L IPID, CMP #### [facility] [address] [place] [address] Dr. Radha Land CO2 [Moles/Vol] 31.0 mmol/L Normal 21.0-32.0 [facility] Comment on above: Performed By: #### L IPID, CMP #### [facility] [address] [place] [address] Dr. Radha Land Creatinine [Mass/Vol] 0.86 mg/dL Normal 0.55-1.02 [facility] Comment on above: Performed By: #### L IPID, CMP #### [facility] [address] [place] [address] Dr. Radha Land EGFR-AF IRISH >60 Normal >=60 [facility] Comment on above: Performed By: #### L IPID, CMP #### [facility] [address] [place] [address] Dr. Radha Land EGFR-NON AF IRISH >60 Normal >=60 [facility] Comment on above: Performed By: #### L IPID, CMP #### [facility] [address] [place] [address] Dr. Radha Land Globulin (S) [Mass/Vol] 4.1 g/dL Normal [facility] Comment on above: Performed By: #### L IPID, CMP #### [facility] [address] [address] [address] Radha Land Glucose [Mass/Vol] 89 mg/dL Normal 74-106 [facility] Comment on above: Performed By: #### L IPID, CMP #### [facility] [address] [address] [address] Radha Land Potassium [Moles/Vol] 4.1 mmol/L Normal 3.5-5.1 [facility] Comment on above: Performed By: #### L IPID, CMP #### [facility] [address] [address] [address] Radha Land Protein [Mass/Vol] 7.7 g/dL Normal 6.4-8.2 [facility] Comment on above: Performed By: #### L IPID, CMP #### [facility] [address] [address] [address] Radha Land Sodium [Moles/Vol] 137 mmol/L Normal 136-145 [facility] Comment on above: Performed By: #### L IPID, CMP #### [facility] [address] [address] [address] Radha Land Urea nitrogen [Mass/Vol] 12.0 mg/dL Normal 7.0-18.0 [facility] Comment on above: Performed By: #### L IPID, CMP #### [facility] [address] [address] [address] Radha Land Urea nitrogen/Creatinine [Mass ratio] 14.0 mg/mg Normal [facility] Comment on above: Performed By: #### L IPID, CMP #### [facility] [address] [address] [address] Radha Land Social History Date Type Detail Facility Start: 09-17-2023 End: 10-13-2023 Tobacco smoking status Never smoked tobacco (finding) [facility] Start: 1940 Sex Assigned At Female F [facility] Unknown if ever smoked [facility] Other Sex Assigned At [facility] Tobacco smoking status Never [facility] Vital Signs Date Time Vital Sign Value Performing Clinician Facility 11-18-2023 10:53-0400 Body height 165.1 cm [facility] 11-18-2023 10:53-0400 Body mass index (BMI) [Ratio] 20.5 kg/m2 [facility] 11-18-2023 10:53-0400 Body weight 55.79 kg [facility] 11-18-2023 10:53-0400 Diastolic blood pressure 55 mm[Hg] [facility] 11-18-2023 10:53-0400 Heart rate 65 /min [facility] 11-18-2023 10:53-0400 Systolic blood pressure 132 mm[Hg] [facility] 11-06-2023 11:11-0400 Body height 165.1 cm [facility] 11-06-2023 11:11-0400 Body mass index (BMI) [Ratio] 20.2 kg/m2 [facility] 11-06-2023 11:11-0400 Body weight 55.33 kg [facility] 11-06-2023 11:11-0400 Diastolic blood pressure 67 mm[Hg] [facility] 11-06-2023 11:11-0400 Heart rate 61 /min [facility] 11-06-2023 11:11-0400 Systolic blood pressure 124 mm[Hg] [facility] 10-13-2023 12:31-0400 Blood Pressure Location Roman GUAN [facility] 10-13-2023 12:31-0400 Diastolic blood pressure 78 mm[Hg] Roman GUAN [facility] 10-13-2023 12:31-0400 Heart rate 80 /min Roman GUAN [facility] 10-13-2023 12:31-0400 Respiratory rate 16 /min Roman GUAN [facility] 10-13-2023 12:31-0400 Systolic blood pressure 134 mm[Hg] Roman GUAN [facility] 09-30-2023 14:31-0400 Body height 165.1 cm [facility] 09-30-2023 14:31-0400 Body mass index (BMI) [Ratio] 20.5 kg/m2 [facility] 09-30-2023 14:31-0400 Body weight 55.79 kg [facility] 09-30-2023 14:31-0400 Diastolic blood pressure 62 mm[Hg] [facility] 09-30-2023 14:31-0400 Heart rate 64 /min [facility] 09-30-2023 14:31-0400 Systolic blood pressure 104 mm[Hg] [facility] 09-17-2023 08:00-0400 Blood Pressure Location Roman GUAN [facility] [place] [facility] 09-17-2023 08:00-0400 Diastolic blood pressure 80 mm[Hg] Roman GUAN [facility] 09-17-2023 08:00-0400 Heart rate 64 /min Roman GUAN [facility] 09-17-2023 08:00-0400 Systolic blood pressure 132 mm[Hg] Roman GUAN [facility] 01-10-2023 09:45-0400 Body height 165.1 cm Savanna Higgins Other [facility] Other 01-10-2023 09:45-0400 Body mass index (BMI) [Ratio] 20.87 kg/m2 Savanna Higgins Other [facility] Other 01-10-2023 09:45-0400 Body weight 56.88 kg Savanna Higgins Other [facility] Other 01-10-2023 09:45-0400 Diastolic blood pressure 78 mm[Hg] Savanna Higgins Other [facility] Other 01-10-2023 09:45-0400 Systolic blood pressure 142 mm[Hg] Savanna Higgins Other [facility] Other 10-28-2022 08:30-0400 Body height 165.1 cm Savanna Higgins Other [facility] Other 10-28-2022 08:30-0400 Body mass index (BMI) [Ratio] 20.47 kg/m2 Savanna Higgins Other [facility] Other 10-28-2022 08:30-0400 Body weight 55.79 kg Savanna Higgins Other [facility] Other 10-28-2022 08:30-0400 Diastolic blood pressure 47 mm[Hg] Savanna Higgins Other [facility] Other 10-28-2022 08:30-0400 Systolic blood pressure 124 mm[Hg] Savanna Higgins Other [facility] Other Functional Status Date Assessment Result Facility 10-13-2023 Functional Status N/A [facility] 09-17-2023 Functional Status N/A [facility] Clinical Notes 12-19-2021 to 10-13-2023 Note Date & Type Note Facility 10-13-2023 Hospital Discharg e instructions Patient Education 10/13/2023 13:39:08 Kidney Stones, Dzwr-xr-Vvps Kidney Stones Kidney stones are rock-like masses [...] Follow these instructions at home: Medicines Take kmoz-lca-smvphgr and prescription medicines only as told by [...] provider. Document Revised: 12/31/2021 Document Reviewed: 12/31/2021 [employer] Patient Education 2022 [employer]. Follow Up Care 09/17/2023 08:40:02 With:SHANNON SALGUERO, JJ Rucker Address: [facility] [address] [place] [address]- [phone] When: Unknown [facility] 09-17-2023 Hospital Discharg e instructions Patient Education [...] Follow these instructions at home: Medicines Take xoda-ktk-grlxavd and prescription medicines only as told by [...] provider. Document Revised: 08/07/2022 Document Reviewed: 08/07/2022 [employer] Patient Education 2022 [employer]. Follow Up Care 09/11/2023 08:49:49 With:SHANNON SALGUERO, Roman Mitchell, URL Address: [facility] [address] , [place] [address]- When: Unknown [facility] 01-31-2023 Evaluation note Encounter Date Diagnosis Assessment Notes Jan, Seasonal allergic rhinitis, unspecified trigger (ICD-10 - J30.2) [facility] Other 09-01-2023 Evaluation note* Encounter Date Diagnosis Assessment Notes Treatment Notes Treatment Clinical Notes Jan, Piriformis syndrome of left side (ICD-10 - G57.02) Unable to add more tramadol - likely has pain clinic w [facility]. PT order printed. Add steroids. Also gave copies of home exercises. [facility] Other 06-19-2023 Evaluation note* Encounter Date Diagnosis [...] - order handwritten and given to pt [facility] Other 04-27-2023 NoteCONSULTATION CONSULTATION DATE: 09/05/2022 TO: [...] our patients to inform us about any [id number] medications or herbal remedies/nutritional supplements/alternative remedies. 2. [...] treatment options with their primary care provider.[id number] Note CONSULTATION PROCEDURE DATE: 12/25/2021 PREOPERATIVE DIAGNOSIS: [...] procedurally range of motion exercises are performed.[facility] 12-19-2021 NoteCONSULTATION CONSULTATION DATE: 12/19/2021 This [...] where she was seen by the physician hospital nursing assistant in the office and received left [...] the plan of care, to be contacted [facility] note Future Appointments Appointment Date:10/13/2023 12:15:00 PM Scheduled Provider:Roman GUAN MD Location:[facility] Appointment Type:URO Office Visit [facility] Evaluation noteNo InformationNort [employer] Other Evaluation noteNo assessment information available [facility] Work Phone: Evaluation note* Diagnosis Onset Date Resolution Status Right lumbar pain acute [facility] Work Phone: Evaluation note* Diagnosis Onset Date Resolution Status Right lumbar pain acute Medicare annual wellness visit, subsequent acute Nephrolithiasis acute Screening mammogram for breast cancer acute [facility] Work Phone: History general Narrative - Reported* Type Description Date Medical History migraine headache Medical History dizziness Medical History tremors Surgical History hysterectomy Surgical History bunionectomy Surgical History stapedectomy Hospitalization History see above [facility] Other Hospital course Narrative No data available for this section [facility] [place] note No data available for this section [facility] Summary Purpose Family History Relationship Condition Age at Onset Recorded Date/T julia father Unknown family member Unknown Not Specified Unknown Relationship Condition Age at Onset Recorded Date/T julia father Unknown family member Unknown mother Unknown Advance Directives Advance Directive Response Recorded Date/ Time Advance Directives No August 25, 024 10:55am Chief Complaint and Reason for Visit Chief Complaint allergy shot Chief Complaint allergy shot check up Reason for Visit Right lumbar pain Chief Complaint allergy shot check up wellness spot on leg Reason for Visit Right lumbar pain Medicare annual wellness visit, subsequent Nephrolithiasis Screening mammogram for breast cancer Additional Source Comments INFORMATION SOURCE (unrecogn ized section and content) DATE CREATED AUTHOR 10/18/2022 [facility] DATE CREATED AUTHOR AUTHOR'S ORGANIZ ATION 10/16/2023 [facility] REASON FOR VISIT (unrecogniz ed section [...] September 30, 2023 End: September 30, 2023 Team Status: Inactive Member Role Status Dates Savanna Higgins MD Primary Care Provide r, Attending Provider Active Start: November 06, 2023 End: November 06, 2023 Team Status: Inactive Member Role Status Dates Savanna Higgins MD Primary Care Provide r, Attending Provider Active Start: November 18, 2023 End: November 18, 2023 Goals (unrecognized section and content) Goals [...] BE BASED ON THE PRIMARY CLINICAL RECORDS. [employer] provides no warranty or guarantee of the accuracy or completeness of information in this document.
== END 2023-11-25 13:21 | disposition home or self-care (01) ==
LOC: PM 13:21
PROVIDERS: PCP Family Medicine; Visit Provider Anesthesiology Pain Medicine
DX: M47.816 Spondylosis without myelopathy or radiculopathy, lumbar region (principal); M62.838 Other muscle spasm
CPT/HCPCS: G0463

== ENCOUNTER 2023-12-02 09:06 | Outpatient (OUT) | payer MEDICARE, SELFPAY ==
--- NOTE | 2023-12-02 09:08 | CT_ITS ---
The [address] [address] Patient Name: EDUARDO LEA MRN: [id number] date: 1940 Sex: F Assigned Patient Location: CT Current Patient Location: Accession/Order Number: [id number] Exam Date: 12/02/2023 09:12 Report Date: 12/03/2023 05:58 At the request of: AJ ARCEO Procedure: CT lumbar spine wo con EXAMINATION: CT lumbar spine wo con HISTORY: Lumbar Spondylosis, Stenosis ; low back pain; no known injury COMPARISON: No relevant comparison available. TECHNIQUE: Axial, Coronal, and Sagittal images were created without IV contrast. Dose reduction techniques were achieved by using automated exposure control and/or adjustment of mA and/or kV according to patient size and/or use of iterative reconstruction technique. FINDINGS: VERTEBRAL BODIES: Left convex curvature lumbar spine. Minimal grade 1 anterior listhesis of L4 on 5. No fracture or bone lesion. FACET JOINTS: Moderate-marked degenerative facet arthropathy L3-L4 through L5-S1, left greater than right. No disruption or abnormal widening. DISCS: Marked disc space narrowing L2-L3, L5-S1 multilevel central canal stenosis. Multilevel moderate foramen narrowing; marked on the left at L5-S1. CENTRAL CANAL: Moderate-marked central canal narrowing posterior to L2-L3, L3-L4, L4-L5. No evidence of hemorrhage. PARASPINAL AREA: No visible mass. CT/CT lumbar spine wo con IMPRESSION: 1. Multilevel moderate-marked central canal and foraminal stenosis secondary to degenerative disc disease and facet arthropathy. 2. No appreciable acute abnormality. Electronically authenticated by: PB GENAO Date: 12/03/2023 05:58
--- OUTSIDE RECORDS SUMMARY | 2023-12-02 09:27 | XMS_ITS | CCD ---
Author Organization [facility] Care Team Providers Care Manager House Name Role Phone GISELA, DR SAVANNA Willis [...] Unavailable HIGGINS, DR SAVANNA Willis Attending Unavailable FULTON, DR MINE Barriga Consulting Unavailable HIGGINS, DR SAVANNA Willis Admitting Unavailable HIGGINS, DR SAVANNA Willis Consulting Unavailable HIGGINS, DR SAVANNA Willis Attending Unavailable HIGGINS, DR SAVANNA Willis Admitting Unavailable BIRGIT, DR PB Mitchell Consulting Unavailable HIGGINS, DR SAVANNA Willis Primary Care Unavailable HIGGINS, DR SAVANNA Willis Consulting Unavailable GISELA, DR SAVANNA Willis Primary Care Unavailable LAKSHMIPATHY ., NARENDPATEL Attending Jessy vailable LAKSHMIPATHY ., NARENDLOWELLATH Admitting Jessy vailable LAKSHMIPATHY ., NARENDLOWELLATH Consulting Jessy vailable RASTEGAR, ISAEL Consulting Unavailable [...] Primary Care Physician Roman GUAN Attending Unavailable SHANNON, Roman Mitchell Attending Unavailable Roman GUAN Attending Unavailable Medications [...] take 1 tablet by mouth once daily [place]-3 Fish Oil 1 tab, Oral, Daily, Refill(s) [...] day(s), # 30 cap(s), Refills(s) 0, Pharmacy: [facility]/pharmacy #[id number], 56.1, kg, 09/17/23 8:03:00 [...] 09/17/23 Status: [facility] four [facility] daily at mealtime as [...] shoulder; Translations: [PAIN IN LEFT SHOULDER] Onset: 08-16-2022 Episodic Other screening for suspected conditions (not [...] CT Reporton 10-15-2023 RAD - CT Report [id number]# 1.00TIFF Normal [facility] Ambulatory Visit Summaryon 0 10-13-2023 Ambulatory Visit Summary EDUARDO LEA :1940 Visit Date:10/13/2023 Ambulatory Visit Instructions Your Diagnosis Kidney stones History of kidney stones Tests Performed CT Abdomen/Pelvis w/o Contrast -- Results Pending -- Please visit your patient portal for your results or contact your primary care physician. Your Care Team Attending Physician - SHANNON SALGUERO, oRman Mitchell Primary Care Physician - SAVANNA HIGGINS MD This Is Your Medications List Contact prescribing physician if questions or concerns atenolol (atenolol 50 mg Tab) calcium-vitamin D (Caltrate 600 with D) chondroitin-glucosam ine (Osteo Bi-Flex) diclofenac (diclofenac sodium 50 mg Oral EC Tab) meclizine (meclizine 25 mg Tab) multivitamin (Multiple Vitamins oral capsule) omega-3 polyunsaturated fatty acids ([place]-3 Fish Oil) tamsulosin (Flomax 0.4 mg Cap) [...] Rucker When: Where: [facility] [address] , [place] [address] [phone] Medications What How Much When Instructions Unchanged [...] or concerns Unchanged omega-3 polyunsaturated fatty acids ([place]-3 Fish Oil) 1 tab By Mouth Every [...] the groin. (more content not included)... Normal [facility] Patient Educationon 10-13-19 24 Patient Education Urology [...] these instructions at home: Medicines ? Take bxit-qnh-ialihzg and prescription medicines only as told by [...] provider. Document Revised: 12/31/2021 Document Reviewed: 12/31/2021 [employer] Patient Education ? 2022 [employer]. [employer] [facility] Urology Office/Clinic Noteon 10-13-2023 Urology Office/Clinic Note [...] pass, required surgery 2 years ago in [place]. Was told at this time that she had a puncture in her kidney that would heal. Follow-up With When Contact Information SHANNON SALGUERO, Roman Mitchell, URL [facility] [address], [place] [address]- [phone] Additional Instructions: f/u pending CT scan Patient Education Kidney Stones, Paax-lf-Qlkn Anabella Webber, personally scribed for Dr. Guan [...] Vitamins oral capsule, 1 cap(s), Oral, Daily [place]-3 Fish Oil, 1 tab, Oral, Daily Osteo [...] virus vaccine, inactivated 02/14/2023 Recorded SARS-CoV-2 (COVID-19) [id number] 03/12/2022 Recorded 2023-10-13: TPV80 influenza virus vaccine, inactivated 02/28/2022 Recorded SARS-CoV-2 (COVID-19) mRNA-1273 vaccine 11/09/2021 Recorded 2023-10-13: TPV80 SARS-CoV-2 (COVID-19) mRNA-12 (more content not included)... Normal [facility] Comment on above: Result Comment: Elec tronically Signed By: Roman GUAN MD\.br\Date and Time Signed: 10/13/23 13:41 EDT\.br\Electronically Co-Signed By: Anabella Villalta\Date and Time Co-Signed: 10/13/23 13:39 EDT RAD - MISCon 10-12-2023 [facility] [id number] #1.00TIFF Normal [facility] ED Note-Physicianon 09-18-19 ED Note-Physician [id number] 8#1.00TIFF Normal [facility] Formson 09-18-2023 Forms [id number] #1.00TIFF Normal [facility] RAD - CT Reporton 09-18-2023 RAD - CT Report [id number] 8#1.00TIFF Normal [facility]23 [facility] [id number] 1#1.00TIFF Normal [facility] [id number]# 1.00TIFF [facility] [id number] 9#1.00TIFF [facility] Ambulatory Visit Summaryon 0 09-17-2023 Ambulatory [...] Vitamins oral capsule) omega-3 polyunsaturated fatty acids ([place]-3 Fish Oil) zolmitriptan (Zomig 5 mg oral [...] SALGUERO, Roman Mitchell Where: [facility] Patient Educationon 09-17-19 Patient Education Urology [...] these instructions at home: Medicines ? Take znys-knn-hurvddg and prescription medicines only as told by [...] recommendations from (more content not included)... Normal [facility] Urology Office/Clinic Noteon 09-17-2023 Urology Office/Clinic Note Chief Complaint New pt HPI Staff 1 week follow up w/[facility]-09/15/23-[facility] Pt was seen at [facility] on 09/09/23 due to abdominal pain [...] yo female new pt following up to [facility] ED visit 09/09/23 due to intermittent [...] pass, required surgery 2 years ago in [place]. Was told at this time that [...] [address] ct[address] SEs discussed. Rx sent to [facility]. -High fluid intake. -Pt to call or go to the ER if he were to experience fever, shaking, chills, uncontrolled nausea, vomiting, or pain. Follow-up With When Contact Information Roman GUAN MD, URL [facility] [address] [place] [address]- Additional Instructions: 3 weeks with [facility] Patient [...] Vitamins oral capsule, 1 cap(s), Oral, Daily [place]-3 Fish Oil, 1 tab, Oral, Daily Osteo [...] Lab Results (more content not included)... Normal [facility] Comment on above: Result Comment: Elec tronically Signed By: Roman GUAN MD\.br\Date and Time Signed: 09/17/23 08:41 EDT\.br\Electronically Co-Signed By: Cynthia Jonesbr\Date and Time Co-Signed: 09/17/23 08:39 EDT Basophils Auto (Bld) [#/Vol] on 09-09-2023 Basophils (Bld) [#/Vol] 0.0 10 3/uL 0.0-0.1 [facility] Basophils/100 WBC Auto (Bld) on 09-09-2023 Basophils/100 WBC (Bld) 0.4 % 0.2-2.0 [facility] Casts typing in urine sedime nt by light microscopyon 09-09-2023 Casts LM Nom (Urine sed) NONE SEEN #/LPF NONE SEEN [facility] Eosinophils/100 WBC Auto (Bl d)on 09-09-2023 Eosinophils/100 WBC (Bld) 1.1 % 0.9-7.0 [facility] Erythrocyte distribution wid th Auto (RBC) [Ratio]on 09-09-2023 Erythrocyte distribution width (RBC) [Ratio] 13.0 % 11.0-15.0 [facility] Estimated glomerular filtrat ion rate (GFR) non- Americanon 09-09-2023 GFR/1.73 sq M.predicted among non-blacks MDRD (S/P/Bld) [Vol rate/Area] 52 mL/min/{1.73_m2} Low >=60 [facility] Globulin Calc (S) [Mass/Vol] on 09-09-2023 Globulin (S) [Mass/Vol] 3.5 g/dL [facility] Hematocrit Auto (Bld) [Volum e fraction]on 09-09-2023 Hematocrit (Bld) [Volume fraction] 39.0 % 36.0-48.0 [facility] Hemoglobin [Mass/volume] in Bloodon 09-09-2023 Hemoglobin (Bld) [Mass/Vol] 12.6 g/dL 12.0-16.0 [facility] Laboratory - Chemistry and C hemistry - challengeon 09-09-2023 Albumin [Mass/Vol] 3.6 g/dL 3.4-5.0 [facility] ALP [Catalytic activity/Vol] 74 U/L 46-116 [facility] ALT [Catalytic activity/Vol] 30 U/L 14-59 [facility] AST [Catalytic activity/Vol] 24 U/L 15-37 [facility] Bilirubin [Mass/Vol] 0.5 mg/dL 0.2-1.0 [facility] Calcium [Mass/Vol] 9.8 mg/dL 8.5-10.1 [facility] Chloride [Moles/Vol] 102 mmol/L 98-107 [facility] CO2 [Moles/Vol] 31.2 mmol/L 21.0-32.0 [facility] Creatinine [Mass/Vol] 1.01 mg/dL 0.55-1.[address] [facility] GFR/1.73 sq M.predicted MDRD (S/P/Bld) [Vol rate/Area] mL/min/{1.73_m2} >=60 [facility] Glucose [Mass/Vol] 100 mg/dL 74-106 [facility] Lipase [Catalytic activity/Vol] 25.0 U/L 16.0-77.0 [facility] Potassium [Moles/Vol] 3.9 mmol/L 3.5-5.[address] [facility] Protein [Mass/Vol] 7.1 g/dL 6.4-8.2 [facility] Sodium [Moles/Vol] 140 mmol/L 136-145 [facility] Urea nitrogen [Mass/Vol] 22.0 mg/dL High 7.0-18.0 [facility] Urea nitrogen/Creatinine [Mass ratio] 21.8 mg/mg [facility] Bilirubin Ql (U) Negative NEGATIVE [facility] Glucose (U) [Mass/Vol] Negative NEGATIVE [facility] Ketones Ql (U) Negative NEGATIVE [facility] pH (U) 6.0 [pH] 5.0-9.0 [facility] Specific gravity (U) [Rel density] 1.020 1.005-1.025 [facility] Urobilinogen Qn (U) 0.2 {Sosa'U}/dL 0.2-1.0 [facility] Laboratory - Hematology and Cell countson 09-09-2023 Immature granulocytes/100 WBC (Bld) 0.3 % 0.0-0.5 [facility] Laboratory - Specimen inform ationon 09-09-2023 Appearance (U) CLEAR CLEAR [facility] Color (U) DK. YELLOW YELLOW [facility] Laboratory - Urinalysison Amorphous sediment LM Ql (Urine sed) RARE [facility] Leukocyte esterase Test strip Ql (U) TRACE Abnormal NEGATIVE [facility] Nitrite Ql (U) Negative NEGATIVE [facility] Protein Ql (U) Negative NEG/TRACE [facility] Leukocytes [#/volume] correc bill for nucleated erythrocytes in Blood by Automated counon 09-09-2023 WBC corrected for nucl RBC Auto (Bld) [#/Vol] 10.7 10 3/uL 4.0-11.0 [facility] Lymphocytes Auto (Bld) [#/Vo l]on 09-09-2023 Lymphocytes (Bld) [#/Vol] 1.5 10 3/uL 1.2-3.8 [facility] Lymphocytes/100 WBC Auto (Bl d)on 09-09-2023 Lymphocytes/100 WBC (Bld) 13.7 % Low 20.5-60.0 [facility] MCH Auto (RBC) [Entitic mass ]on 09-09-2023 MCH (RBC) [Entitic mass] 31.2 pg 26.7-34.0 [facility] MCHC Auto (RBC) [Mass/Vol]on 09-09-2023 MCHC (RBC) [Mass/Vol] 32.3 g/dL 29.9-35.[address] [facility] MCV Auto (RBC) [Entitic vol] on 09-09-2023 MCV (RBC) [Entitic vol] 96.5 fL 81.0-99.0 [facility] Monocytes Auto (Bld) [#/Vol] on 09-09-2023 Monocytes (Bld) [#/Vol] 1.0 10 3/uL High 0.3-0.8 [facility] Monocytes/100 WBC Auto (Bld) on 09-09-2023 Monocytes/100 WBC (Bld) 9.5 % 1.7-12.0 [facility] Mucus LM Ql (Urine sed)on Mucus Ql (Urine sed) NONE SEEN NONE SEEN [facility] Neutrophils Auto (Bld) [#/Vo l]on 09-09-2023 Neutrophils (Bld) [#/Vol] 8.0 10 3/uL High 1.4-6.5 [facility] Neutrophils/100 WBC Auto (Bl d)on 09-09-2023 Neutrophils/100 WBC (Bld) 75.0 % 43.0-75.0 [facility] No Panel Informationon 09-08 Eosinophils # (Auto) 0.1 10 3/uL 0.0-0.[address] [facility] Immature Granulocyte # (Auto) 0.03 10 3/uL 0.00-0.03 [facility] Urine Bacteria NONE SEEN #/HPF NONE SEEN [facility] Urine Culture Reflexed NO [facility] Urine Microscopic Review YES [facility] Urine Occult Blood LARGE Abnormal NEGATIVE [facility] Urine Other Crystals Seen #/HPF Abnormal None Seen [facility] Urine RBC 10-20 #/HPF Abnormal 0-2 [facility] Urine Squamous Epithelial Cells NONE SEEN #/LPF NONE/RARE [facility] Urine Uric Acid Crystals FEW [facility] Urine WBC 2-5 #/HPF Abnormal NONE SEEN [facility] Platelet mean volume Auto (B ld) [Entitic vol]on 09-09-2023 Platelet mean volume (Bld) [Entitic vol] 9.5 fL 9.5-13.5 [facility] Platelets Auto (Bld) [#/Vol] on 09-09-2023 Platelets (Bld) [#/Vol] 240 10 3/uL 150-450 [facility] RBC Auto (Bld) [#/Vol]on RBC (Bld) [#/Vol] 4.04 10 6/uL Low 4.20-5.40 [facility] Serum or plasma albumin/glob ulin mass ratioon 09-09-2023 Albumin/Globulin [Mass ratio] 1.0 {ratio} [facility] Serum or plasma anion gap de terminationon 09-09-2023 Anion gap [Moles/Vol] 10.7 mmol/L Fi [facility] XR RIBS LT PA Stephen 3 XR [...] PB GENAO Date: 2022-10-02 11:51 Normal [facility] XR CSPINE 2_3 VIEWSon 2022 [...] ISAEL GRIFFIN Date: 2022-09-05 15:58 Normal [facility] CBC AUTO DIFFon 12-31-2021 BASO # 0.0 103/ul Normal 0.0-0.1 [facility] Comment on above: Performed By: #### C BC #### [facility] [address] [address] [address] Radha Land Basophils/100 WBC (Bld) 0.2 % Normal 0.2-2.0 [facility] Comment on above: Performed By: #### C BC #### [facility] [address] [address] [address] Radha Land EO # 0.2 103/ul Normal 0.0-0.7 [facility] Comment on above: Performed By: #### C BC #### [facility] [address] [address] [address] Radha Land Eosinophils/100 WBC (Bld) 1.7 % Normal 0.9-7.0 [facility] Comment on above: Performed By: #### C BC #### [facility] [address] [place] [address] Dr. Radha Land Erythrocyte distribution width (RBC) [Ratio] 13.4 % Normal 11.0-15.0 [facility] Comment on above: Performed By: #### C BC #### [facility] [address] [place] [address] Dr. Radha Land Hematocrit (Bld) [Volume fraction] 40.9 % Normal 36.0-48.0 [facility] Comment on above: Performed By: #### C BC #### [facility] [address] [place] [address] Dr. Radha Land Hemoglobin (Bld) [Mass/Vol] 13.1 g/dL Normal 12.0-16.0 [facility] Comment on above: Performed By: #### C BC #### [facility] [address] [place] [address] Dr. Radha Land IG # 0.05 10e3/ul Critically high 0.00-0.03 [facility] Comment on above: Performed By: #### C BC #### [facility] [address] [place] [address] Dr. Radha Land IG % 0.4 % Normal 0.0-0.5 [facility] Comment on above: Performed By: #### C BC #### [facility] [address] [place] [address] Dr. Radha Land LYMPH # 1.4 103/ul Normal 1.2-3.8 [facility] Comment on above: Performed By: #### C BC #### [facility] [address] [place] [address] Dr. Radha Land Lymphocytes/100 WBC (Bld) 10.8 % Critically low 20.5-60.0 [facility] Comment on above: Performed By: #### C BC #### [facility] [address] [place] [address] Dr. Radha Land MANUAL DIFF REQ NO Normal [facility] Comment on above: Performed By: #### C BC #### [facility] [address] [place] [address] Dr. Radha Land MCH (RBC) [Entitic mass] 31.5 pg Normal 26.7-34.0 [facility] Comment on above: Performed By: #### C BC #### [facility] [address] [place] [address] Dr. Radha Land MCHC (RBC) [Mass/Vol] 32.0 g/dL Normal 29.9-35.2 [facility] Comment on above: Performed By: #### C BC #### [facility] [address] [place] [address] Dr. Radha Land MCV (RBC) [Entitic vol] 98.3 fL Normal 81.0-99.0 [facility] Comment on above: Performed By: #### C BC #### [facility] [address] [place] [address] Dr. Radha Land MONO # 1.3 103/ul Critically high 0.3-0.8 [facility] Comment on above: Performed By: #### C BC #### [facility] [address] [place] [address] Dr. Radha Land Monocytes/100 WBC (Bld) 9.7 % Normal 1.7-12.0 [facility] Comment on above: Performed By: #### C BC #### [facility] [address] [place] [address] Dr. Radha Land NEUT # 10.2 103/ul Critically high 1.4-6.5 [facility] Comment on above: Performed By: #### C BC #### [facility] [address] [place] [address] Dr. Radha Land Neutrophils/100 WBC (Bld) 77.2 % Critically high 43.0-75.0 [facility] Comment on above: Performed By: #### C BC #### [facility] [address] [place] [address] Dr. Radha Land Platelet mean volume (Bld) [Entitic vol] 9.7 fL Normal 9.5-13.5 [facility] Comment on above: Performed By: #### C BC #### [facility] [address] [address] [address] Radha Land PLT 235 103/ul Normal 150-450 [facility] Comment on above: Performed By: #### C BC #### [facility] [address] [address] [address] Radha Land RBC 4.16 106/ul Critically low 4.20-5.40 [facility] Comment on above: Performed By: #### C BC #### [facility] [address] [address] [address] Radha Land WBC 13.2 103/ul Critically high 4.0-11.0 [facility] Comment on above: Performed By: #### C BC #### [facility] [address] [address] [address] Radha Land [facility]ATE 35 mm/hr Critically high <=30 [facility] Comment on above: Performed By: #### S EDR #### [facility] [address] [place] [address] Dr. Radha Land CBC AUTO DIFFon 11-07-2021 BASO # 0.0 103/ul Normal 0.0-0.1 [facility] Comment on above: Performed By: #### C BC ####[facility] [address] [address]Dr. Radha Land Basophils/100 WBC (Bld) 0.3 % Normal 0.2-2.0 [facility] Comment on above: Performed By: #### C BC ####[facility] [address] [address]Dr. Radha Land EO # 0.2 103/ul Normal 0.0-0.7 [facility] Comment on above: Performed By: #### C BC ####[facility] [address] [address]Dr. Radha Land Eosinophils/100 WBC (Bld) 3.3 % Normal 0.9-7.0 [facility] Comment on above: Performed By: #### C BC ####[facility] [address] [place], [place] [address]Dr. Radha Land Erythrocyte distribution width (RBC) [Ratio] 13.2 % Normal 11.0-15.0 [facility] Comment on above: Performed By: #### C BC ####[facility] [address] [place], [place] [address]Dr. Radha Land Hematocrit (Bld) [Volume fraction] 41.9 % Normal 36.0-48.0 [facility] Comment on above: Performed By: #### C BC ####[facility] [address] [place], [place] [address]Dr. Radha Land Hemoglobin (Bld) [Mass/Vol] 13.4 g/dL Normal 12.0-16.0 [facility] Comment on above: Performed By: #### C BC ####[facility] [address] [place], [place] [address]Dr. Radha Land IG # 0.01 10e3/ul Normal 0.00-0.03 [facility] Comment on above: Performed By: #### C BC ####[facility] [address] [place], [place] [address]Dr. Radha Land IG % 0.2 % Normal 0.0-0.5 [facility] Comment on above: Performed By: #### C BC ####[facility] [address] [place], [place] [address]Dr. Radha Land LYMPH # 1.6 103/ul Normal 1.2-3.8 [facility] Comment on above: Performed By: #### C BC ####[facility] [address] [place], [place] [address]Dr. Radha Land Lymphocytes/100 WBC (Bld) 27.5 % Normal 20.5-60.0 [facility] Comment on above: Performed By: #### C BC ####[facility] [address] [address]Dr. Radha Land MANUAL DIFF REQ NO Normal [facility] Comment on above: Performed By: #### C BC ####[facility] [address] [address]Dr. Radha Land MCH (RBC) [Entitic mass] 31.2 pg Normal 26.7-34.0 [facility] Comment on above: Performed By: #### C BC ####[facility] [address] [address]Dr. Radha Land MCHC (RBC) [Mass/Vol] 32.0 g/dL Normal 29.9-35.2 [facility] Comment on above: Performed By: #### C BC ####[facility] [address] [address]Dr. Radha Emery MCV (RBC) [Entitic vol] 97.7 fL Normal 81.0-99.0 [facility] Comment on above: Performed By: #### C BC ####[facility] [address] [place], [place] [address]Dr. Radha Emery MONO # 0.7 103/ul Normal 0.3-0.8 [facility] Comment on above: Performed By: #### C BC ####[facility] [address] [address]Dr. Radha Emery Monocytes/100 WBC (Bld) 12.4 % Critically high 1.7-12.0 [facility] Comment on above: Performed By: #### C BC ####[facility] [address] [address]Dr. Radha Land NEUT # 3.2 103/ul Normal 1.4-6.5 [facility] Comment on above: Performed By: #### C BC ####[facility] [address] [place], [place] [address]Dr. Radha Emery Neutrophils/100 WBC (Bld) 56.3 % Normal 43.0-75.0 [facility] Comment on above: Performed By: #### C BC ####[facility] [address] [place], [place] [address]Gl. Radha Land Platelet mean volume (Bld) [Entitic vol] 9.4 fL Critically low 9.5-13.5 [facility] Comment on above: Performed By: #### C BC ####[facility] [address] [place], [place] [address]Ib. Radha Land PLT 226 103/ul Normal 150-450 [facility] Comment on above: Performed By: #### C BC ####[facility] [address] [id number][address] Radha Land RBC 4.29 106/ul Normal 4.20-5.40 [facility] Comment on above: Performed By: #### C BC ####[facility] [address] [id number]. Radha Land WBC 5.7 103/ul Normal 4.0-11.0 [facility] Comment on above: Performed By: #### C BC ####[facility] [address] [id number]. Radha Land LIPID PROFILEon 11-07-2021 CHOL-HDL RATIO NORM SEE BELOW Normal [facility] Comment on above: Result Comment: 3.3 - 4.4 LOW RISK 4.4 - 7.1 AVERAGE RISK 7.1 - 11.0 MODERATE RISK >11.0 HIGH RISK Performed By: #### L IPID, CMP #### [facility] [address] [address] [address] Radha Land Cholesterol [Mass/Vol] 257 mg/dL Critically high <=200 [facility] Comment on above: Performed By: #### L IPID, CMP #### [facility] [address] [address] [address] Radha Land Cholesterol in HDL [Mass/Vol] 76 mg/dL Critically high 40-60 [facility] Comment on above: Performed By: #### L IPID, CMP #### [facility] [address] [address] [address] Radha Land Cholesterol in LDL [Mass/Vol] 163.8 mg/dL Normal [facility] Comment on above: Performed By: #### L IPID, CMP #### [facility] [address] [address] [address] Radha Land Cholesterol.total/Cho lesterol in HDL [Mass ratio] 3.4 {ratio} Normal [facility] Comment on above: Performed By: #### L IPID, CMP #### [facility] [address] [address] [address] Radha Land HDL NORMAL > or = 60 mg/dl - LOW CARDIOVASCULAR RISK <40 mg/dl - HIGH CARDIOVASCULAR RISK Normal [facility] Comment on above: Performed By: #### L IPID, CMP #### [facility] [address] [address] [address] Radha Land LDL CALC NORMAL SEE BELOW Normal [facility] Comment on above: Result Comment: <100 mg/dl OPTIMAL 100 - 129 mg/dl NEAR OR ABOVE OPTIMAL 130 - 159 mg/dl BORDERLINE HIGH 160 - 189 mg/dl HIGH >190 mg/dl VERY HIGH Performed By: #### L IPID, CMP #### [facility] [address] [address] [address] Radha Land Triglyceride [Mass/Vol] 86 mg/dL Normal <=150 [facility] Comment on above: Performed By: #### L IPID, CMP #### [facility] [address] [address] [address] Radha Land VLDL CALC 17.2 mg/dL Normal [facility] Comment on above: Performed By: #### L IPID, CMP #### [facility] [address] [address] [address] Radha Land MG MAMM SCREEN 3D GIANCARLO CADon 11-07-2021 MG MAMM SCREEN 3D GIANCARLO CAD Patient: EDUARDO LEA Exam Date: 11/07/2021 : 1940 Gender:F Ordering : DR SAVANNA HIGGINS M.D. Admission #: [id number] Family : Order #: [id number] CLICK HERE TO VIEW EXAM RADIOLOGY REPORT [...] ovarian cancer at age 47. LOCATION: [facility] BREAST COMPOSITION: Extremely dense, which [...] Arriaga MD on 11/07/2021 at 11:21 Normal [facility] PROF 14(COMP METB)on 022 Albumin [Mass/Vol] 3.6 g/dL Normal 3.4-5.0 [facility] Comment on above: Performed By: #### L IPID, CMP #### [facility] [address] [place] [address] Dr. Radha Land Albumin/Globulin [Mass ratio] 0.9 {ratio} Normal [facility] Comment on above: Performed By: #### L IPID, CMP #### [facility] [address] [place] [address] Dr. Radha Land ALP [Catalytic activity/Vol] 79 U/L Normal 46-116 [facility] Comment on above: Performed By: #### L IPID, CMP #### [facility] [address] [address] [address] Radha Land ALT [Catalytic activity/Vol] 32 U/L Normal 14-59 [facility] Comment on above: Performed By: #### L IPID, CMP #### [facility] [address] [place] [address] Dr. Radha Land Anion gap [Moles/Vol] 6.1 mmol/L Normal [facility] Comment on above: Performed By: #### L IPID, CMP #### [facility] [address] [address] [address] Radha Land AST [Catalytic activity/Vol] 28 U/L Normal 15-37 [facility] Comment on above: Performed By: #### L IPID, CMP #### [facility] [address] [address] [address] Radha Land Bilirubin [Mass/Vol] 0.6 mg/dL Normal 0.2-1.0 [facility] Comment on above: Performed By: #### L IPID, CMP #### [facility] [address] [address] [address] Radha Land Calcium [Mass/Vol] 9.1 mg/dL Normal 8.5-10.1 [facility] Comment on above: Performed By: #### L IPID, CMP #### [facility] [address] [place] [address] Dr. Radha Land Chloride [Moles/Vol] 104 mmol/L Normal 98-107 [facility] Comment on above: Performed By: #### L IPID, CMP #### [facility] [address] [place] [address] Dr. Radha Land CO2 [Moles/Vol] 31.0 mmol/L Normal 21.0-32.0 [facility] Comment on above: Performed By: #### L IPID, CMP #### [facility] [address] [place] [address] Dr. Radha Land Creatinine [Mass/Vol] 0.86 mg/dL Normal 0.55-1.02 [facility] Comment on above: Performed By: #### L IPID, CMP #### [facility] [address] [place] [address] Dr. Radha Land EGFR-AF URUGUAYAN >60 Normal >=60 [facility] Comment on above: Performed By: #### L IPID, CMP #### [facility] [address] [place] [address] Dr. Radha Land EGFR-NON AF URUGUAYAN >60 Normal >=60 [facility] Comment on above: Performed By: #### L IPID, CMP #### [facility] [address] [address] [address] Radha Land Globulin (S) [Mass/Vol] 4.1 g/dL Normal [facility] Comment on above: Performed By: #### L IPID, CMP #### [facility] [address] [place] [address] Dr. Radha Land Glucose [Mass/Vol] 89 mg/dL Normal 74-106 [facility] Comment on above: Performed By: #### L IPID, CMP #### [facility] [address] [place] [address] Dr. Radha Land Potassium [Moles/Vol] 4.1 mmol/L Normal 3.5-5.1 [facility] Comment on above: Performed By: #### L IPID, CMP #### [facility] [address] [place] [address] Dr. Radha Land Protein [Mass/Vol] 7.7 g/dL Normal 6.4-8.2 [facility] Comment on above: Performed By: #### L IPID, CMP #### [facility] [address] [place] [address] Dr. Radha Land Sodium [Moles/Vol] 137 mmol/L Normal 136-145 [facility] Comment on above: Performed By: #### L IPID, CMP #### [facility] [address] [place] [address] Dr. Radha Land Urea nitrogen [Mass/Vol] 12.0 mg/dL Normal 7.0-18.0 [facility] Comment on above: Performed By: #### L IPID, CMP #### [facility] [address] [place] [address] Dr. Radha Land Urea nitrogen/Creatinine [Mass ratio] 14.0 mg/mg Normal [facility] Comment on above: Performed By: #### L IPID, CMP #### [facility] [address] [place] [address] Dr. Radha Land Vital Signs Date Time Vital Sign Value Performing Clinician Facility 11-18-2023 10:53-0400 Body height 165.1 cm [facility] 11-18-2023 10:53-0400 Body mass index (BMI) [Ratio] 20.5 kg/m2 [facility] 11-18-2023 10:53-0400 Body weight 55.79 kg [facility] 11-18-2023 10:53-0400 Diastolic blood pressure 55 mm[Hg] [facility] 11-18-2023 10:53-0400 Heart rate 65 /min [facility] 11-18-2023 10:53-0400 Systolic blood pressure 132 mm[Hg] [facility] 11-06-2023 11:11-0400 Body height 165.1 cm [facility] 11-06-2023 11:11-0400 Body mass index (BMI) [Ratio] 20.2 kg/m2 [facility] 11-06-2023 11:11-0400 Body weight 55.33 kg [facility] 11-06-2023 11:11-0400 Diastolic blood pressure 67 mm[Hg] [facility] 11-06-2023 11:11-0400 Heart rate 61 /min [facility] 11-06-2023 11:11-0400 Systolic blood pressure 124 mm[Hg] [facility] 10-13-2023 12:31-0400 Blood Pressure Location Roman GUAN [facility] 10-13-2023 12:31-0400 Diastolic blood pressure 78 mm[Hg] Roman GUAN [facility] 10-13-2023 12:31-0400 Heart rate 80 /min Roman GUAN [facility] 10-13-2023 12:31-0400 Respiratory rate 16 /min Roman GUAN [facility] 10-13-2023 12:31-0400 Systolic blood pressure 134 mm[Hg] Roman GUAN [facility] 09-30-2023 14:31-0400 Body height 165.1 cm [facility] 09-30-2023 14:31-0400 Body mass index (BMI) [Ratio] 20.5 kg/m2 [facility] 09-30-2023 14:31-0400 Body weight 55.79 kg [facility] 09-30-2023 14:31-0400 Diastolic blood pressure 62 mm[Hg] [facility] 09-30-2023 14:31-0400 Heart rate 64 /min [facility] 09-30-2023 14:31-0400 Systolic blood pressure 104 mm[Hg] [facility] 09-17-2023 08:00-0400 Blood Pressure Location Roman GUAN [facility] 09-17-2023 08:00-0400 Diastolic blood pressure 80 mm[Hg] Roman GUAN [facility] 09-17-2023 08:00-0400 Heart rate 64 /min Romanarminda GUAN [facility] 09-17-2023 08:00-0400 Systolic blood pressure 132 mm[Hg] Roman GUAN [facility] 01-10-2023 09:45-0400 Body height 165.1 cm Savanna Higgins Other [facility] Other 01-10-2023 09:45-0400 Body mass index (BMI) [Ratio] 20.87 kg/m2 Savanna Higgins Other [facility] Other 01-10-2023 09:45-0400 Body weight 56.88 kg Savanna Higgins Other [facility] Other 01-10-2023 09:45-0400 Diastolic blood pressure 78 mm[Hg] Savanna Higgins Other [facility] Other 01-10-2023 09:45-0400 Systolic blood pressure 142 mm[Hg] Savanna Higgins Other [facility] Other 10-28-2022 08:30-0400 Body height 165.1 cm Savanna Higgins Other [facility] Other 10-28-2022 08:30-0400 Body mass index (BMI) [Ratio] 20.47 kg/m2 Savanna Higgins Other [facility] Other 10-28-2022 08:30-0400 Body weight 55.79 kg Savanna Higgins Other [facility] Other 10-28-2022 08:30-0400 Diastolic blood pressure 47 mm[Hg] Savanna Higgins Other [facility] Other 10-28-2022 08:30-0400 Systolic blood pressure 124 mm[Hg] Savanna Higgins Other [employer] Other Encounters Encounter Date Encounter Type Care Provider Facility Start: 10-15-2024 ambulatory Roman Mota ty:[facility] [place] Start: 11-18-2023 End: 11-18-2023 ambulatory [facility] Work Phone: Start: 11-18-2023 End: 11-18-2023 Patient encounter procedure [facility] Work Phone: Start: 11-10-2023 Patient encounter procedure [facility] Start: 11-06-2023 End: 11-06-2023 Patient encounter procedure [facility] Work Phone: Start: 10-13-2023 End: 10-13-2023 ambulatory Roman GUAN Facility:[facility] [place] Start: 10-13-2023 End: 10-13-2023 Patient encounter procedure Roman GUAN [facility] [place] Start: 09-30-2023 End: 09-30-2023 ambulatory [facility] Work Phone: Start: 09-30-2023 End: 09-30-2023 Patient encounter procedure [facility] Work Phone: Start: 09-17-2023 End: 09-17-2023 ambulatory Roman GUAN Facility: [place] Start: 09-17-2023 End: 09-17-2023 Patient encounter procedure Roman GUAN [facility] [place] Start: 09-11-2023 ambulatory Roman GUAN Facility : [place] Start: 09-09-2023 Non-patient / Non-visit [facility] Work Phone: Start: 08-26-2023 End: 08-26-2023 ambulatory [facility] Work Phone: Start: 08-26-2023 End: 08-26-2023 Patient encounter procedure [facility] Work Phone: Start: 03-28-2023 End: 03-28-2023 ambulatory Savanna Higgins Other [facility] Other Start: 03-28-2023 Telephone encounter Savanna Higgins [facility] Start: 01-31-2023 End: 01-31-2023 ambulatory Savanna Higgins Other [facility] Other Start: 01-31-2023 Nursing evaluation o f patient and report Savanna Higgins [facility] Start: 01-14-2023 End: 01-14-2023 ambulatory Savanna Higgins Other [facility] Other Start: 01-14-2023 Telephone encounter Savanna Higgins [facility] Start: 01-10-2023 End: 01-10-2023 ambulatory Savanna Higgins Other [employer] [facility] Other Start: 01-10-2023 Office outpatient visit 15 minutes Savanna Higgins [facility] Start: 10-28-2022 End: 10-28-2022 ambulatory Savanna Higgins Other [facility] Other Start: 10-28-2022 Patient encounter procedure Savanna Higgins [facility] Start: 10-24-2022 End: 10-24-2022 ambulatory Savanna Higgins Other [facility] Other Start: 10-24-2022 Telephone encounter Savanna Higgins [facility] Start: 10-08-2022 End: 10-08-2022 ambulatory AJ LEMIAARON [...] 12-31-2021 Adult health examination Savanna Higgins Other [employer] Other Start: 12-31-2021 End: 01-01-[address] [...] breast Savanna Higgins Other stapidectomy 3 Roman JODI Rothman Comment on above: right ear Plan of Treatment Date Care Activity Detail Author Diagnostic radiograp hy of abdomen [facility] MG Breast - bilatera l Screening [facility] Patient Education Low back pain in adults [facility] Work Phone: Immunizations Immunization Date Immunization Notes Care Provider Fa cility 02-14-2023 influenza virus vaccine, unspecified formulation Roman GUAN [facility] 03-12-2022 SARS-CoV-2 (COVID-19 ) [id number] Roman GUAN [facility] Comment on above: Result Comment: 2023: [id number] 02-28-2022 influenza virus vaccine, split virus (incl. purified surface antigen) Savanna Higgins Other [employer] Other 02-28-2022 influenza virus vaccine, unspecified formulation [facility] 11-09-2021 SARS-CoV-2 (COVID-19 ) mRNA-1273 vaccine Roman GUAN [facility] Comment on above: Result Comment: 2023: [id number] 03-08-2021 SARS-CoV-2 (COVID-19 ) mRNA-1273 vaccine Roman GUAN [facility] 02-27-2021 influenza virus vaccine, split virus (incl. purified surface antigen) Savanna Higgins Other [employer] Other 02-27-2021 influenza virus vaccine, unspecified formulation [facility] 06-29-2020 SARS-CoV-2 (COVID-19 ) mRNA-1273 vaccine Roman GUAN [facility] 06-01-2020 SARS-CoV-2 (COVID-19 ) mRNA-1273 vaccine Roman GUAN [facility] 03-14-2020 zoster vaccine recombinant Roman GUAN [facility] 02-16-2020 influenza virus vaccine, split virus (incl. purified surface antigen) Savanna Higgins Other [employer] Other 02-16-2020 influenza virus vaccine, unspecified formulation [facility] 10-25-2019 pneumococcal polysaccharide vaccine, 23 valent Savanna Higgins Other [facility] 01-25-2019 influenza virus vaccine, unspecified formulation Roman GUAN [facility] 03-10-2018 pneumococcal conjuga te vaccine, 13 valent Savanna Higgins Other [facility] 02-14-2018 influenza virus vaccine, unspecified formulation Roman GUAN [facility] 01-08-2017 influenza virus vaccine, split virus (incl. purified surface antigen) Savanna Higgins Other [employer] Other 01-08-2017 influenza virus vaccine, unspecified formulation [facility] 02-06-2016 influenza virus vaccine, split virus (incl. purified surface antigen) Savanna Higgins Other [employer] Other 02-06-2016 influenza virus vaccine, unspecified formulation [facility] 03-24-2015 influenza virus vaccine, split virus (incl. purified surface antigen) Savanna Higgins Other [employer] Other 03-24-2015 influenza virus vaccine, unspecified formulation [facility] 02-26-2013 tetanus and diphther ia toxoids, adsorbed, preservative free, for adult use (5 Lf of tetanus toxoid and 2 Lf of diphtheria toxoid) Savanna Higgins Other [facility] Payers Date Payer Category Payer Medicare [id number] 1960 Medicare [id number] 1940 Unknown [id number] 2.16.84 [id number] 1940 Unknown [id number] 2.16.84 0.1.231855.3.579.2.593 1940 Unknown [id number] 2.16.84 0.1.233480.3.579.2.593 1940 Unknown [id number] 2.16.84 0.1.479113.3.579.2.593 1940 Unknown [id number] 2.16.84 0.1.191034.3.579.2.593 1940 Unknown [id number] 2.16.84 0.1.090334.3.579.2.593 1940 Unknown [id number] 2.16.84 0.1.324310.3.579.2.593 1940 Unknown [id number] 2.16.84 0.1.981176.3.579.2.593 1940 Unknown [id number] 2.16.84 0.1.610584.3.579.2.593 1940 Unknown [id number] 2.16.84 0.1.026006.3.579.2.593 1940 Unknown [id number] 2.16.84 0.1.149510.3.579.2.593 1940 Unknown [id number] 2.16.84 0.1.646334.3.579.2.593 1940 Unknown [id number] 2.16.8 40.1.018200.3.579.2.727 1940 Unknown [id number] 2.16.8 40.1.090660.3.579.2.727 1940 Unknown [id number] 2.16.8 40.1.554208.3.579.2.727 1940 Unknown [id number] 2.16.8 40.1.707786.3.579.2.727 Private Health Insurance [id number] Social History Date Type Detail Facility Unknown if ever smoked [employer] Other Sex Assigned At [facility] Start: 1940 Sex Assigned At Female F [facility] Start: 09-17-2023 End: 10-13-2023 Tobacco smoking status Never smoked tobacco (finding) [facility] Tobacco smoking status Never [facility] Functional Status Date Assessment Result Facility 10-13-2023 Functional Status N/A [facility] [place] 09-17-2023 Functional Status N/A [facility] Clinical Notes 12-19-2021 to 10-13-2023 Note Date & Type Note Facility 10-13-2023 Hospital Discharg e instructions Patient Education 10/13/2023 13:39:08 Kidney Stones, Okqh-jc-Cuyg Kidney Stones Kidney stones are rock-like masses [...] Follow these instructions at home: Medicines Take oefe-qhx-cvpegcr and prescription medicines only as told by [...] provider. Document Revised: 12/31/2021 Document Reviewed: 12/31/2021 [employer] Patient Education 2022 [employer]. Follow Up Care 09/17/2023 08:40:02 With:SHANNON SALGUERO, Roman Mitchell, JJ Address: [facility] [address], [place] [phone] When: Unknown [facility] 09-17-2023 Hospital Discharg e instructions Patient [...] Follow these instructions at home: Medicines Take jguh-vns-msdeogk and prescription medicines only as told by [...] provider. Document Revised: 08/07/2022 Document Reviewed: 08/07/2022 [employer] Patient Education 2022 [employer]. Follow Up Care 09/11/2023 08:49:49 With:SHANNON SALGUERO, JJ Rucker Address: [facility] [address], [place] [address]- When: Unknown [facility] [place] 01-31-2023 Evaluation note Encounter Date Diagnosis Assessment Notes Jan, Seasonal allergic rhinitis, unspecified trigger (ICD-10 - J30.2) [employer] Other 09-01-2023 Evaluation note* Encounter Date Diagnosis Assessment Notes Treatment Notes Treatment Clinical Notes Jan, Piriformis syndrome of left side (ICD-10 - G57.02) Unable to add more tramadol - likely has pain clinic w [facility]. PT order printed. Add steroids. Also gave copies of home exercises. [employer] Other 06-19-2023 Evaluation note* Encounter Date Diagnosis [...] - order handwritten and given to pt [employer] Other 04-27-2023 NoteCONSULTATION CONSULTATION DATE: 09/05/2022 TO: [...] our patients to inform us about any yoec-anp-ahfxprk medications or herbal remedies/nutritional supplements/alternative remedies. 2. [...] treatment options with their primary care provider.[id number] Note CONSULTATION PROCEDURE DATE: 12/25/2021 PREOPERATIVE DIAGNOSIS: [...] procedurally range of motion exercises are performed.[facility] 12-19-2021 NoteCONSULTATION CONSULTATION DATE: 12/19/2021 [...] where she was seen by the physician carpenter assistant in the office and received left [...] the plan of care, to be contacted [facility] Future Appointments Appointment Date:10/13/2023 12:15:00 PM Scheduled Provider:Roman GUAN MD Location:[facility] Appointment Type:URO Office Visit [facility] [place] Evaluation noteNo InformationNort [employer] Other Evaluation noteNo assessment information available [facility] Work Phone: Evaluation note* Diagnosis Onset Date Resolution Status Right lumbar pain acute [facility] Work Phone: Evaluation note* Diagnosis Onset Date Resolution Status Right lumbar pain acute Medicare annual wellness visit, subsequent acute Nephrolithiasis acute Screening mammogram for breast cancer acute [facility] Work Phone: History general Narrative - Reported* Type Description Date Medical History migraine headache Medical History dizziness Medical History tremors Surgical History hysterectomy Surgical History bunionectomy Surgical History stapedectomy Hospitalization History see above [employer] Other Hospital course Narrative No data available for this section [facility] [place] note No data available for this section [facility] [place] Summary Purpose Family History No Family History Records Found Relationship Condition Age at Onset Recorded Date/T julia father Unknown family member Unknown Not Specified Unknown Relationship Condition Age at Onset Recorded Date/T julia father Unknown family member Unknown mother Unknown Advance Directives No Advanced Directives Records [...] and content) DATE CREATED AUTHOR 10/18/2022 [facility] DATE CREATED AUTHOR AUTHOR'S ORGANIZ ATION 11/26/2023 [facility] REASON FOR VISIT (unrecogniz ed section [...] 2023 Team Status: Inactive Member Role Status Henrietta Higgins MD Primary Care Provide r, Attending Provider Active Start: November 06, 2023 End: November 06, 2023 Team Status: Inactive Member Role Status Henrietta Higgins MD Primary Care Provide r, Attending [...] BE BASED ON THE PRIMARY CLINICAL RECORDS. [facility] [facility]. provides no warranty or guarantee of the accuracy or completeness of information in this document.
== END 2023-12-02 09:07 | disposition home or self-care (01) ==
LOC: CT 09:06
PROVIDERS: PCP Family Medicine; Visit Provider Anesthesiology Pain Medicine
DX: M47.816 Spondylosis without myelopathy or radiculopathy, lumbar region (principal); M48.062 Spinal stenosis, lumbar region with neurogenic claudication; M51.36 Other intervertebral disc degeneration, lumbar region
CPT/HCPCS: 72131

== ENCOUNTER 2023-12-04 10:02 | Outpatient (RCR) | payer MEDICARE, SELFPAY | END 2024-01-16 10:14 | disposition home or self-care (01) | LOC: PT 10:02 | PROVIDERS: PCP Family Medicine; Visit Provider Anesthesiology Pain Medicine | DX: M47.816 Spondylosis without myelopathy or radiculopathy, lumbar region (principal) | CPT/HCPCS: 97110; 97113; 97161 ==

== ENCOUNTER 2023-12-09 12:51 | Outpatient (OUT) | payer MEDICARE, SELFPAY ==
--- NOTE | 2023-12-09 | CONS_ITS ---
CONSULTATION DATE: 12/09/2023 TO: Savanna Guajardo M.D. CHIEF COMPLAINT: Includes severe lower back pain, progressive left leg pain. HISTORY: She rates her pain today as being 4-7/10 pain, deep aching in character, increased with activities such as standing, walking and performing transitioning maneuvers. Denies any change in bowel and bladder habits, but reports progressive weakness of the left lower extremity. CURRENT MEDICATION: Includes diclofenac, tramadol p.r.n. Her JEAN on today?s visit is 31%. EXAMINATION: Notable for patient having hypoesthesia along the L5 dermatome, weakness of the left extensor hallucis. She had 3/5 strength of her left extensor hallucis. Straight leg raise is positive. She has a depressed left patella and Achilles reflex. She had no signs consistent with myelopathy involving the lower extremities. 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 RECOMMENDATIONS: I recommend patient start Zonegran 50 mg at h.s. The patient will initiate aquatic therapy. Prescription was given at her last visit, and to proceed with L5-S1 epidural steroid injection under fluoroscopic guidance. As part of providing excellent, safe, comprehensive care, the following was completed at our patient's visit: 1. A medication reconciliation and review to ensure accurate knowledge of current/active medications, including asking our patients to inform us about any vyja-sog-loliial medications or herbal remedies/nutritional supplements/alternative remedies. 2. A review to specifically ensure our patients have had annual screening for: elevated body mass index (BMI, see intake chart for exact total), tobacco use, screening for depression, and screening for unhealthy alcohol use. When screening is concerning, patients are provided with education and the specific recommendation to discuss the concerning health issue and treatment options with their primary care provider. NELSON
--- OUTSIDE RECORDS SUMMARY | 2023-12-09 13:12 | XMS_ITS | CCD ---
Author Organization [facility] Care Team Providers Care Custom Shop Worker Name Role Phone GISELA, DR SAVANNA Willis [...] Unavailable HIGGINS, DR SAVANNA Willis Attending Unavailable TECATE, DR MINE Barriga Consulting Unavailable HIGGINS, DR [...] Admitting Jessy vailable LAKSHMIPATHY ., NARENDLOWELLATH Consulting Jesys vailable RASTEGAR, ISAEL Consulting Unavailable GISELA, DR [...] take 1 tablet by mouth once daily White Oak-3 Fish Oil 1 tab, Oral, Daily, Refill(s) [...] day(s), # 30 cap(s), Refills(s) 0, Pharmacy: [facility]/pharmacy #[id number], 56.1, kg, 09/17/23 8:03:00 EDT, Weight [...] 09/17/23 Status: Ordered take 1 tablet by [facility] four times daily at mealtime [...] CT Reporton 10-15-2023 RAD - CT Report [id number]# 1.00TIFF Normal [facility] Ambulatory Visit Summaryon 0 10-13-2023 Ambulatory Visit [...] Vitamins oral capsule) omega-3 polyunsaturated fatty acids (White Oak-3 Fish Oil) tamsulosin (Flomax 0.4 mg Cap) [...] [address] , [place] [phone] Medications What How Much When Instructions Unchanged [...] or concerns Unchanged omega-3 polyunsaturated fatty acids (White Oak-3 Fish Oil) 1 tab By Mouth Every [...] groin. (more content not included)... Normal [facility] Patient Educationon 10-13-19 24 Patient Education Urology [...] these instructions at home: Medicines ? Take qkvk-gui-axhnkmt and prescription medicines only as told by [...] provider. Document Revised: 12/31/2021 Document Reviewed: 12/31/2021 [employer] with a Tweet Patient Education ? 2022 [employer]. [facility] Urology Office/Clinic Noteon 10-13-2023 Urology Office/Clinic Note [...] pass, required surgery 2 years ago in [place]. Was told at this time that she had a puncture in her kidney that would heal. Follow-up With When Contact Information SHANNON SALGUERO, Roman Mitchell, URL [facility] [address], [place] [address] [phone] Additional Instructions: f/u pending CT scan Patient Education Kidney Stones, Oder-uv-Zkbw Anabella Webber, personally scribed for Dr. Guan [...] Vitamins oral capsule, 1 cap(s), Oral, Daily White Oak-3 Fish Oil, 1 tab, Oral, Daily Osteo [...] virus vaccine, inactivated 02/14/2023 Recorded SARS-CoV-2 (COVID-19) [id number] 03/12/2022 Recorded 2023-10-13: TPV80 influenza virus vaccine, inactivated 02/28/2022 Recorded SARS-CoV-2 (COVID-19) mRNA-1273 vaccine 11/09/2021 Recorded 2023-10-13: TPV80 SARS-CoV-2 (COVID-19) mRNA-12 (more content not included)... Normal [facility] Comment on above: Result Comment: Elec tronically Signed By: Roman GUAN MD\.br\Date and Time Signed: 10/13/23 13:41 EDT\.br\Electronically Co-Signed By: Anabella Villalta\Date and Time Co-Signed: 10/13/23 13:39 EDT RAD - MISCon 10-12-2023 [facility] [id number] #1.00TIFF Normal [facility] ED Note-Physicianon 09-18-19 ED Note-Physician [id number] 8#1.00TIFF Normal [facility] Formson 09-18-2023 Forms [id number] #1.00TIFF Normal [facility] RAD - CT Reporton 09-18-2023 RAD - CT Report [id number] 8#1.00TIFF Normal [facility] [place] [id number] 1#1.00TIFF Normal [facility] [place] [facility] [place] [id number]# 1.00TIFF [facility] [place] [facility] [place] [id number] 9#1.00TIFF [facility] Ambulatory Visit Summaryon 0 09-17-2023 [...] Vitamins oral capsule) omega-3 polyunsaturated fatty acids (White Oak-3 Fish Oil) zolmitriptan (Zomig 5 mg oral [...] SALGUERO, Roman Mitchell Where: [facility] Patient Educationon 09-17-19 Patient Education Urology Kidney [...] these instructions at home: Medicines ? Take wttc-yhi-bocvhev and prescription medicines only as told by [...] recommendations from (more content not included)... Normal [facility] Urology Office/Clinic Noteon 09-17-2023 Urology Office/Clinic Note Chief Complaint New pt HPI Staff 1 week follow up w/[facility]-09/15/23-[facility] Pt was seen at [facility] on 09/09/23 due to abdominal pain [...] yo female new pt following up to [facility] ED visit 09/09/23 due to intermittent [...] pass, required surgery 2 years ago in [place] Was told at this time that [...] MD, URL [facility] [address] [place] [address]- Additional Instructions: 3 weeks with [facility] Patient [...] Vitamins oral capsule, 1 cap(s), Oral, Daily White Oak-3 Fish Oil, 1 tab, Oral, Daily Osteo [...] Lab Results (more content not included)... Normal [facility] Comment on above: Result Comment: Elec tronically Signed By: Roman GUAN MD\.br\Date and Time Signed: 09/17/23 08:41 EDT\.br\Electronically Co-Signed By: Cynthia Jonesbr\Date and Time Co-Signed: 09/17/23 08:39 EDT Basophils Auto (Bld) [#/Vol] on 09-09-2023 Basophils (Bld) [#/Vol] 0.0 10 3/uL 0.0-0.1 [facility] Basophils/100 WBC Auto (Bld) on 09-09-2023 Basophils/100 WBC (Bld) 0.4 % 0.2-2.0 [facility] Casts typing in urine sedime nt by light microscopyon 09-09-2023 Casts LM Nom (Urine sed) NONE SEEN #/LPF NONE SEEN [facility] Eosinophils/100 WBC Auto (Bl d)on 09-09-2023 Eosinophils/100 WBC (Bld) 1.1 % 0.9-7.0 [facility] Erythrocyte distribution wid th Auto (RBC) [Ratio]on 09-09-2023 Erythrocyte distribution width (RBC) [Ratio] 13.0 % 11.0-15.0 [facility] Estimated glomerular filtrat ion rate (GFR) non- Americanon 09-09-2023 GFR/1.73 sq M.predicted among non-blacks MDRD (S/P/Bld) [Vol rate/Area] 52 mL/min/{1.73_m2} Low >=60 [facility] Globulin Calc (S) [Mass/Vol] on 09-09-2023 Globulin (S) [Mass/Vol] 3.5 g/dL [facility] Hematocrit Auto (Bld) [Volum e fraction]on 09-09-2023 Hematocrit (Bld) [Volume fraction] 39.0 % 36.0-48.0 [facility] Hemoglobin [Mass/volume] in Bloodon 09-09-2023 Hemoglobin (Bld) [Mass/Vol] 12.6 g/dL 12.0-16.0 [facility] Laboratory - Chemistry and C hemistry - challengeon 09-09-2023 Albumin [Mass/Vol] 3.6 g/dL 3.4-5.0 [facility] ALP [Catalytic activity/Vol] 74 U/L 46-116 [facility] ALT [Catalytic activity/Vol] 30 U/L 14-59 [facility] AST [Catalytic activity/Vol] 24 U/L 15-37 [facility] Bilirubin [Mass/Vol] 0.5 mg/dL 0.2-1.0 [facility] Calcium [Mass/Vol] 9.8 mg/dL 8.5-10.1 [facility] Chloride [Moles/Vol] 102 mmol/L 98-107 [facility] CO2 [Moles/Vol] 31.2 mmol/L 21.0-32.0 [facility] Creatinine [Mass/Vol] 1.01 mg/dL 0.55-1.02 [facility] GFR/1.73 sq M.predicted MDRD (S/P/Bld) [Vol rate/Area] mL/min/{1.73_m2} >=60 [facility] Glucose [Mass/Vol] 100 mg/dL 74-106 [facility] Lipase [Catalytic activity/Vol] 25.0 U/L 16.0-77.0 [facility] Potassium [Moles/Vol] 3.9 mmol/L 3.5-5.1 [facility] Protein [Mass/Vol] 7.1 g/dL 6.4-8.2 [facility] Sodium [Moles/Vol] 140 mmol/L 136-145 [facility] Urea nitrogen [Mass/Vol] 22.0 mg/dL High 7.0-18.0 [facility] Urea nitrogen/Creatinine [Mass ratio] 21.8 mg/mg [facility] Bilirubin Ql (U) Negative NEGATIVE [facility] Glucose (U) [Mass/Vol] Negative NEGATIVE [facility] Ketones Ql (U) Negative NEGATIVE [facility] pH (U) 6.0 [pH] 5.0-9.0 [facility] Specific gravity (U) [Rel density] 1.020 1.005-1.025 [facility] Urobilinogen Qn (U) 0.2 {Sosa'U}/dL 0.2-1.0 [facility] Laboratory - Hematology and Cell countson 09-09-2023 Immature granulocytes/100 WBC (Bld) 0.3 % 0.0-0.5 [facility] Laboratory - Specimen inform ationon 09-09-2023 Appearance (U) CLEAR CLEAR [facility] Color (U) DK. YELLOW YELLOW [facility] Laboratory - Urinalysison Amorphous sediment LM Ql (Urine sed) RARE [facility] Leukocyte esterase Test strip Ql (U) TRACE Abnormal NEGATIVE [facility] Nitrite Ql (U) Negative NEGATIVE [facility] Protein Ql (U) Negative NEG/TRACE [facility] Leukocytes [#/volume] correc bill for nucleated erythrocytes in Blood by Automated counon 09-09-2023 WBC corrected for nucl RBC Auto (Bld) [#/Vol] 10.7 10 3/uL 4.0-11.0 [facility] Lymphocytes Auto (Bld) [#/Vo l]on 09-09-2023 Lymphocytes (Bld) [#/Vol] 1.5 10 3/uL 1.2-3.8 [facility] Lymphocytes/100 WBC Auto (Bl d)on 09-09-2023 Lymphocytes/100 WBC (Bld) 13.7 % Low 20.5-60.0 [facility] MCH Auto (RBC) [Entitic mass ]on 09-09-2023 MCH (RBC) [Entitic mass] 31.2 pg 26.7-34.0 [facility] MCHC Auto (RBC) [Mass/Vol]on 09-09-2023 MCHC (RBC) [Mass/Vol] 32.3 g/dL 29.9-35.2 [facility] MCV Auto (RBC) [Entitic vol] on 09-09-2023 MCV (RBC) [Entitic vol] 96.5 fL 81.0-99.0 [facility] Monocytes Auto (Bld) [#/Vol] on 09-09-2023 Monocytes (Bld) [#/Vol] 1.0 10 3/uL High 0.3-0.8 [facility] Monocytes/100 WBC Auto (Bld) on 09-09-2023 Monocytes/100 WBC (Bld) 9.5 % 1.7-12.0 [facility] Mucus LM Ql (Urine sed)on Mucus Ql (Urine sed) NONE SEEN NONE SEEN [facility] Neutrophils Auto (Bld) [#/Vo l]on 09-09-2023 Neutrophils (Bld) [#/Vol] 8.0 10 3/uL High 1.4-6.5 [facility] Neutrophils/100 WBC Auto (Bl d)on 09-09-2023 Neutrophils/100 WBC (Bld) 75.0 % 43.0-75.0 [facility] No Panel Informationon 09-08 Eosinophils # (Auto) 0.1 10 3/uL 0.0-0.7 [facility] Immature Granulocyte # (Auto) 0.03 10 3/uL 0.00-0.03 [facility] Urine Bacteria NONE SEEN #/HPF NONE SEEN [facility] Urine Culture Reflexed NO [facility] Urine Microscopic Review YES [facility] Urine Occult Blood LARGE Abnormal NEGATIVE [facility] Urine Other Crystals Seen #/HPF Abnormal None Seen [facility] Urine RBC 10-20 #/HPF Abnormal 0-2 [facility] Urine Squamous Epithelial Cells NONE SEEN #/LPF NONE/RARE [facility] Urine Uric Acid Crystals FEW [facility] Urine WBC 2-5 #/HPF Abnormal NONE SEEN [facility] Platelet mean volume Auto (B ld) [Entitic vol]on 09-09-2023 Platelet mean volume (Bld) [Entitic vol] 9.5 fL 9.5-13.5 [facility] Platelets Auto (Bld) [#/Vol] on 09-09-2023 Platelets (Bld) [#/Vol] 240 10 3/uL 150-450 [facility] RBC Auto (Bld) [#/Vol]on RBC (Bld) [#/Vol] 4.04 10 6/uL Low 4.20-5.40 [facility] Serum or plasma albumin/glob ulin mass ratioon 09-09-2023 Albumin/Globulin [Mass ratio] 1.0 {ratio} [facility] Serum or plasma anion gap de terminationon 09-09-2023 Anion gap [Moles/Vol] 10.7 mmol/L Fi [facility] XR RIBS LT PA Stephen 3 XR [...] PB GENAO Date: 2022-10-02 11:51 Normal [facility] XR CSPINE 2_3 VIEWSon 2022 XR [...] ISAEL GRIFFIN Date: 2022-09-05 15:58 Normal [facility] CBC AUTO DIFFon 12-31-2021 BASO # 0.0 103/ul Normal 0.0-0.1 [facility] Comment on above: Performed By: #### C BC #### [facility] [address] [address] [address] Radha Land Basophils/100 WBC (Bld) 0.2 % Normal 0.2-2.0 [facility] Comment on above: Performed By: #### C BC #### [facility] [address] [address] [address] Radha Ladn EO # 0.2 103/ul Normal 0.0-0.7 [facility] Comment on above: Performed By: #### C BC #### [facility] [address] [address] [address] Radha Land Eosinophils/100 WBC (Bld) 1.7 % Normal 0.9-7.0 [facility] Comment on above: Performed By: #### C BC #### [facility] [address] [place] [address] Dr. Radha Land Erythrocyte distribution width (RBC) [Ratio] 13.4 % Normal 11.0-15.0 [facility] Comment on above: Performed By: #### C BC #### [facility] [address] [place] [address] Dr. Radha Land Hematocrit (Bld) [Volume fraction] 40.9 % Normal 36.0-48.0 [facility] Comment on above: Performed By: #### C BC #### [facility] [address] [place] [address] Dr. Radha Land Hemoglobin (Bld) [Mass/Vol] 13.1 g/dL Normal 12.0-16.0 [facility] Comment on above: Performed By: #### C BC #### [facility] [address] [place] [address] Dr. Radha Land IG # 0.05 10e3/ul Critically high 0.00-0.03 [facility] Comment on above: Performed By: #### C BC #### [facility] [address] [place] [address] Dr. Radha Land IG % 0.4 % Normal 0.0-0.5 [facility] Comment on above: Performed By: #### C BC #### [facility] [address] [place] [address] Dr. Radha Land LYMPH # 1.4 103/ul Normal 1.2-3.8 [facility] Comment on above: Performed By: #### C BC #### [facility] [address] [place] [address] Dr. Radha Land Lymphocytes/100 WBC (Bld) 10.8 % Critically low 20.5-60.0 [facility] Comment on above: Performed By: #### C BC #### [facility] [address] [place] [address] Dr. Radha Land MANUAL DIFF REQ NO Normal [facility] Comment on above: Performed By: #### C BC #### [facility] [address] [place] [address] Dr. Radha Land MCH (RBC) [Entitic mass] 31.5 pg Normal 26.7-34.0 [facility] Comment on above: Performed By: #### C BC #### [facility] [address] [place] [address] Dr. Radha Land MCHC (RBC) [Mass/Vol] 32.0 g/dL Normal 29.9-35.2 [facility] Comment on above: Performed By: #### C BC #### [facility] [address] [place] [address] Dr. Radha Land MCV (RBC) [Entitic vol] 98.3 fL Normal 81.0-99.0 [facility] Comment on above: Performed By: #### C BC #### [facility] [address] [place] [address] Dr. Radha Land MONO # 1.3 103/ul Critically high 0.3-0.8 [facility] Comment on above: Performed By: #### C BC #### [facility] [address] [place] [address] Dr. Radha Land Monocytes/100 WBC (Bld) 9.7 % Normal 1.7-12.0 [facility] Comment on above: Performed By: #### C BC #### [facility] [address] [place] [address] Dr. Radha Land NEUT # 10.2 103/ul Critically high 1.4-6.5 [facility] Comment on above: Performed By: #### C BC #### [facility] [address] [place] [address] Dr. Radha Land Neutrophils/100 WBC (Bld) 77.2 % Critically high 43.0-75.0 [facility] Comment on above: Performed By: #### C BC #### [facility] [address] [place] [address] Dr. Radha Land Platelet mean volume (Bld) [Entitic vol] 9.7 fL Normal 9.5-13.5 [facility] Comment on above: Performed By: #### C BC #### [facility] [address] [address] [address] Radha Land PLT 235 103/ul Normal 150-450 [facility] Comment on above: Performed By: #### C BC #### [facility] [address] [address] [address] Radha Land RBC 4.16 106/ul Critically low 4.20-5.40 [facility] Comment on above: Performed By: #### C BC #### [facility] [address] [address] [address] Radha Land WBC 13.2 103/ul Critically high 4.0-11.0 [facility] Comment on above: Performed By: #### C BC #### [facility] [address] [address] [address] Radha Land [facility] SED RATE 35 mm/hr Critically high <=30 [facility] Comment on above: Performed By: #### S EDR #### [facility] [address] [place] [address] Dr. Radha Land CBC AUTO DIFFon 11-07-2021 BASO # 0.0 103/ul Normal 0.0-0.1 [facility] Comment on above: Performed By: #### C BC ####[facility] [address] [address]Dr. Radha Land Basophils/100 WBC (Bld) 0.3 % Normal 0.2-2.0 [facility] Comment on above: Performed By: #### C BC ####[facility] [address] [address]Dr. Radha Land EO # 0.2 103/ul Normal 0.0-0.7 [facility] Comment on above: Performed By: #### C BC ####[facility] [address] [address]Dr. Radha Land Eosinophils/100 WBC (Bld) 3.3 % Normal 0.9-7.0 [facility] Comment on above: Performed By: #### C BC ####[facility] [address] [place], [place] [address]Dr. Radha Land Erythrocyte distribution width (RBC) [Ratio] 13.2 % Normal 11.0-15.0 [facility] Comment on above: Performed By: #### C BC ####[facility] [address] [place], [place] [address]Dr. Radha Land Hematocrit (Bld) [Volume fraction] 41.9 % Normal 36.0-48.0 [facility] Comment on above: Performed By: #### C BC ####[facility] [address] [place], [place] [address]Dr. Radha Land Hemoglobin (Bld) [Mass/Vol] 13.4 g/dL Normal 12.0-16.0 [facility] Comment on above: Performed By: #### C BC ####[facility] [address] [place], [place] [address]Dr. Radha Land IG # 0.01 10e3/ul Normal 0.00-0.03 [facility] Comment on above: Performed By: #### C BC ####[facility] [address] [place], [place] [address]Dr. Radha Land IG % 0.2 % Normal 0.0-0.5 [facility] Comment on above: Performed By: #### C BC ####[facility] [address] [place], [place] [address]Dr. Radha Land LYMPH # 1.6 103/ul Normal 1.2-3.8 [facility] Comment on above: Performed By: #### C BC ####[facility] [address] [place], [place] [address]Dr. Radha Land Lymphocytes/100 WBC (Bld) 27.5 % Normal 20.5-60.0 [facility] Comment on above: Performed By: #### C BC ####[facility] [address] [address]Dr. Radha Land MANUAL DIFF REQ NO Normal [facility] Comment on above: Performed By: #### C BC ####[facility] [address] [address]Dr. Radha Land MCH (RBC) [Entitic mass] 31.2 pg Normal 26.7-34.0 [facility] Comment on above: Performed By: #### C BC ####[facility] [address] [address]Dr. Radha Land MCHC (RBC) [Mass/Vol] 32.0 g/dL Normal 29.9-35.2 [facility] Comment on above: Performed By: #### C BC ####[facility] [address] [address]Dr. Radha Emery MCV (RBC) [Entitic vol] 97.7 fL Normal 81.0-99.0 [facility] Comment on above: Performed By: #### C BC ####[facility] [address] [place], [place] [address]Dr. Radha Emery MONO # 0.7 103/ul Normal 0.3-0.8 [facility] Comment on above: Performed By: #### C BC ####[facility] [address] [address]Dr. Radha Emery Monocytes/100 WBC (Bld) 12.4 % Critically high 1.7-12.0 [facility] Comment on above: Performed By: #### C BC ####[facility] [address] [address]Dr. Radha Land NEUT # 3.2 103/ul Normal 1.4-6.5 [facility] Comment on above: Performed By: #### C BC ####[facility] [address] [place], [place] [address]Dr. Radha Emery Neutrophils/100 WBC (Bld) 56.3 % Normal 43.0-75.0 [facility] Comment on above: Performed By: #### C BC ####[facility] [address] [place], [place] [address]Qs. Radha Land Platelet mean volume (Bld) [Entitic vol] 9.4 fL Critically low 9.5-13.5 [facility] Comment on above: Performed By: #### C BC ####[facility] [address] [place], [place] [address]Bi. Radha Land PLT 226 103/ul Normal 150-450 [facility] Comment on above: Performed By: #### C BC ####[facility] [address] [address]Dr[address] Radha Land RBC 4.29 106/ul Normal 4.20-5.40 [facility] Comment on above: Performed By: #### C BC ####[facility] [address] [address] Radha Land WBC 5.7 103/ul Normal 4.0-11.0 [facility] Comment on above: Performed By: #### C BC ####[facility] [address] [address] Radha Land LIPID PROFILEon 11-07-2021 CHOL-HDL RATIO NORM SEE BELOW Normal [facility] Comment on above: Result Comment: 3.3 - 4.4 LOW RISK 4.4 - 7.1 AVERAGE RISK 7.1 - 11.0 MODERATE RISK >11.0 HIGH RISK Performed By: #### L IPID, CMP #### [facility] [address] [address] [address] Radha Land Cholesterol [Mass/Vol] 257 mg/dL Critically high <=200 [facility] Comment on above: Performed By: #### L IPID, CMP #### [facility] [address] [address] [address] Radha Land Cholesterol in HDL [Mass/Vol] 76 mg/dL Critically high 40-60 [facility] Comment on above: Performed By: #### L IPID, CMP #### [facility] [address] [address] [address] Radha Land Cholesterol in LDL [Mass/Vol] 163.8 mg/dL Normal [facility] Comment on above: Performed By: #### L IPID, CMP #### [facility] [address] [address] [address] Radha Land Cholesterol.total/Cho lesterol in HDL [Mass ratio] 3.4 {ratio} Normal [facility] Comment on above: Performed By: #### L IPID, CMP #### [facility] [address] [address] [address] Radha Land HDL NORMAL > or = 60 mg/dl - LOW CARDIOVASCULAR RISK <40 mg/dl - HIGH CARDIOVASCULAR RISK Normal [facility] Comment on above: Performed By: #### L IPID, CMP #### [facility] [address] [address] [address] Radha Land LDL CALC NORMAL SEE BELOW Normal [facility] [place] [facility] Comment on above: Result Comment: <100 mg/dl OPTIMAL 100 - 129 mg/dl NEAR OR ABOVE OPTIMAL 130 - 159 mg/dl BORDERLINE HIGH 160 - 189 mg/dl HIGH >190 mg/dl VERY HIGH Performed By: #### L IPID, CMP #### [facility] [address] [address] [address] Radha Land Triglyceride [Mass/Vol] 86 mg/dL Normal <=150 [facility] Comment on above: Performed By: #### L IPID, CMP #### [facility] [address] [address] [address] Radha Land VLDL CALC 17.2 mg/dL Normal [facility] Comment on above: Performed By: #### L IPID, CMP #### [facility] Laboratory [address] [address] [address] Radha Land MG MAMM SCREEN 3D GIANCARLO CADon 11-07-2021 MG MAMM SCREEN 3D GIANCARLO CAD Patient: EDUARDO LEA Exam Date: 11/07/2021 : 1940 Gender:F Ordering : DR SAVANNA HIGGINS M.D. Admission #: [id number] Family : Order #: [id number] CLICK HERE TO VIEW EXAM RADIOLOGY REPORT [...] ovarian cancer at age 47. LOCATION: [facility] BREAST COMPOSITION: Extremely dense, which lowers [...] Arriaga MD on 11/07/2021 at 11:21 Normal [facility] PROF 14(COMP METB)on 022 Albumin [Mass/Vol] 3.6 g/dL Normal 3.4-5.0 [facility] Comment on above: Performed By: #### L IPID, CMP #### [facility] [address] [place] [address] Dr. Radha Land Albumin/Globulin [Mass ratio] 0.9 {ratio} Normal [facility] Comment on above: Performed By: #### L IPID, CMP #### [facility] [address] [place] [address] Dr. Radha Land ALP [Catalytic activity/Vol] 79 U/L Normal 46-116 [facility] Comment on above: Performed By: #### L IPID, CMP #### [facility] [address] [address] [address] Radha Land ALT [Catalytic activity/Vol] 32 U/L Normal 14-59 [facility] Comment on above: Performed By: #### L IPID, CMP #### [facility] [address] [place] [address] Dr. Radha Land Anion gap [Moles/Vol] 6.1 mmol/L Normal [facility] Comment on above: Performed By: #### L IPID, CMP #### [facility] [address] [address] [address] aRdha Land AST [Catalytic activity/Vol] 28 U/L Normal 15-37 [facility] Comment on above: Performed By: #### L IPID, CMP #### [facility] [address] [address] [address] Radha Land Bilirubin [Mass/Vol] 0.6 mg/dL Normal 0.2-1.0 [facility] Comment on above: Performed By: #### L IPID, CMP #### [facility] [address] [address] [address] Radha Land Calcium [Mass/Vol] 9.1 mg/dL Normal 8.5-10.1 [facility] Comment on above: Performed By: #### L IPID, CMP #### [facility] [address] [place] [address] Dr. Radha Land Chloride [Moles/Vol] 104 mmol/L Normal 98-107 [facility] Comment on above: Performed By: #### L IPID, CMP #### [facility] [address] [place] [address] Dr. Radha Land CO2 [Moles/Vol] 31.0 mmol/L Normal 21.0-32.0 [facility] Comment on above: Performed By: #### L IPID, CMP #### [facility] [address] [place] [address] Dr. Radha Land Creatinine [Mass/Vol] 0.86 mg/dL Normal 0.55-1.02 [facility] Comment on above: Performed By: #### L IPID, CMP #### [facility] [address] [place] [address] Dr. Radha Land EGFR-AF ANGUILLAN >60 Normal >=60 [facility] Comment on above: Performed By: #### L IPID, CMP #### [facility] [address] [place] [address] Dr. Radha Land EGFR-NON AF ANGUILLAN >60 Normal >=60 [facility] Comment on above: Performed By: #### L IPID, CMP #### [facility] [address] [address] [address] Radha Land Globulin (S) [Mass/Vol] 4.1 g/dL Normal [facility] Comment on above: Performed By: #### L IPID, CMP #### [facility] [address] [place] [address] Dr. Radha Land Glucose [Mass/Vol] 89 mg/dL Normal 74-106 [facility] Comment on above: Performed By: #### L IPID, CMP #### [facility] [address] [place] [address] Dr. Radha Land Potassium [Moles/Vol] 4.1 mmol/L Normal 3.5-5.1 [facility] Comment on above: Performed By: #### L IPID, CMP #### [facility] [address] [place] [address] Dr. Radha Land Protein [Mass/Vol] 7.7 g/dL Normal 6.4-8.2 [facility] Comment on above: Performed By: #### L IPID, CMP #### [facility] [address] [place] [address] Dr. Radha Land Sodium [Moles/Vol] 137 mmol/L Normal 136-145 [facility] Comment on above: Performed By: #### L IPID, CMP #### [facility] [address] [place] [address] Dr. Radha Land Urea nitrogen [Mass/Vol] 12.0 mg/dL Normal 7.0-18.0 [facility] Comment on above: Performed By: #### L IPID, CMP #### [facility] [address] [place] [address] Dr. Radha Land Urea nitrogen/Creatinine [Mass ratio] 14.0 mg/mg Normal [facility] Comment on above: Performed By: #### L IPID, CMP #### [facility] [address] [place] [address] Dr. Radha Land Vital Signs Date Time Vital Sign Value Performing Clinician Facility 11-18-2023 10:53-0400 Body height 165.[address] [facility] 11-18-2023 10:53-0400 Body mass index (BMI) [Ratio] 20.5 kg/m2 [facility] 11-18-2023 10:53-0400 Body weight 55.[address] [facility] 11-18-2023 10:53-0400 Diastolic blood pressure 55 mm[Hg] [facility] 11-18-2023 10:53-0400 Heart rate 65 /min [facility] 11-18-2023 10:53-0400 Systolic blood pressure 132 mm[Hg] [facility] 11-06-2023 11:11-0400 Body height 165.[address] [facility] 11-06-2023 11:11-0400 Body mass index (BMI) [Ratio] 20.2 kg/m2 [facility] 11-06-2023 11:11-0400 Body weight 55.[address] [facility] 11-06-2023 11:11-0400 Diastolic blood pressure 67 mm[Hg] [facility] 11-06-2023 11:11-0400 Heart rate 61 /min [facility] 11-06-2023 11:11-0400 Systolic blood pressure 124 mm[Hg] [facility] 10-13-2023 12:31-0400 Blood Pressure Location Roman GUAN [facility] 10-13-2023 12:31-0400 Diastolic blood pressure 78 mm[Hg] Roman GUAN [facility] 10-13-2023 12:31-0400 Heart rate 80 /min Roman GUAN [facility] 10-13-2023 12:31-0400 Respiratory rate 16 /min Roman GUAN [facility] 10-13-2023 12:31-0400 Systolic blood pressure 134 mm[Hg] Roman GUAN [facility] 09-30-2023 14:31-0400 Body height 165.[address] [facility] 09-30-2023 14:31-0400 Body mass index (BMI) [Ratio] 20.5 kg/m2 [facility] 09-30-2023 14:31-0400 Body weight 55.[address] [facility] 09-30-2023 14:31-0400 Diastolic blood pressure 62 mm[Hg] [facility] 09-30-2023 14:31-0400 Heart rate 64 /min [facility] 09-30-2023 14:31-0400 Systolic blood pressure 104 mm[Hg] [facility] 09-17-2023 08:00-0400 Blood Pressure Location Roman GUAN [facility] 09-17-2023 08:00-0400 Diastolic blood pressure 80 mm[Hg] Roman GUAN [facility] 09-17-2023 08:00-0400 Heart rate 64 /min Romanarminda GUAN [facility] 09-17-2023 08:00-0400 Systolic blood pressure 132 mm[Hg] Roman GUAN [facility] 01-10-2023 09:45-0400 Body height 165.1 cm Savanna Higgins Other [facility] Other 01-10-2023 09:45-0400 Body mass index (BMI) [Ratio] 20.87 kg/m2 Savanna Higgins Other [facility] Other 01-10-2023 09:45-0400 Body weight 56.88 kg Savanna Higgins Other [facility] Other 01-10-2023 09:45-0400 Diastolic blood pressure 78 mm[Hg] aSvanna Higgins Other [facility] Other 01-10-2023 09:45-0400 Systolic blood pressure 142 mm[Hg] Savanna Higgins Other [facility] Other 10-28-2022 08:30-0400 Body height 165.1 cm Savanna Higgins Other [facility] Other 10-28-2022 08:30-0400 Body mass index (BMI) [Ratio] 20.47 kg/m2 Savanna Higgins Other [facility] Other 10-28-2022 08:30-0400 Body weight 55.79 kg Savanna Higgins Other [facility] Other 10-28-2022 08:30-0400 Diastolic blood pressure 47 mm[Hg] Savanna Higgins Other [facility] Other 10-28-2022 08:30-0400 Systolic blood pressure 124 mm[Hg] Savanna Higgins Other [facility] Other Encounters Encounter Date Encounter Type Care Provider Facility Start: 10-15-2024 ambulatory Roman Mota ty:[facility] Start: 11-18-2023 End: 11-18-2023 ambulatory [facility] Work Phone: Start: 11-18-2023 End: 11-18-2023 Patient encounter procedure [facility] Work Phone: Start: 11-10-2023 Patient encounter procedure [facility] Start: 11-06-2023 End: 11-06-2023 Patient encounter procedure [facility] Work Phone: Start: 10-13-2023 End: 10-13-2023 ambulatory Roman GUAN Facility:[facility] Start: 10-13-2023 End: 10-13-2023 Patient encounter procedure Roman GUAN [facility] Start: 09-30-2023 End: 09-30-2023 ambulatory [facility] Work Phone: Start: 09-30-2023 End: 09-30-2023 Patient encounter procedure [facility] Work Phone: Start: 09-17-2023 End: 09-17-2023 ambulatory Roman GUAN Facility: [place] Start: 09-17-2023 End: 09-17-2023 Patient encounter procedure Roman GUAN [facility] [place] Start: 09-11-2023 ambulatory Roman GUAN Facility : [place] Start: 09-09-2023 Non-patient / Non-visit [facility] Work Phone: Start: 08-26-2023 End: 08-26-2023 ambulatory [facility] Work Phone: Start: 08-26-2023 End: 08-26-2023 Patient encounter procedure [facility] Work Phone: Start: 03-28-2023 End: 03-28-2023 ambulatory Savanna Higgins Other [facility] Other Start: 03-28-2023 Telephone encounter Savanna Higgins [facility] Start: 01-31-2023 End: 01-31-2023 ambulatory Savanna Higgins Other [facility] Other Start: 01-31-2023 Nursing evaluation o f patient and report Savanna Higgins [facility] Start: 01-14-2023 End: 01-14-2023 ambulatory Savanna Higgins Other [facility] Other Start: 01-14-2023 Telephone encounter Savanna Higgins [facility] Start: 01-10-2023 End: 01-10-2023 ambulatory Savanna Higgins Other [facility] Other Start: 01-10-2023 Office outpatient visit 15 minutes Savanna Higgins [facility] Start: 10-28-2022 End: 10-28-2022 ambulatory Savanna Higgins Other [facility] Other Start: 10-28-2022 Patient encounter procedure Savanna Higgins [facility] Start: 10-24-2022 End: 10-24-2022 ambulatory Savanna Higgins Other [facility] Other Start: 10-24-2022 Telephone encounter Savanna Hgigins [facility] Start: 10-08-2022 End: 10-08-2022 ambulatory AJ LEMIAARON [...] 12-31-2021 Adult health examination Savanna Higgins Other [facility] Other Start: 12-31-2021 End: 01-01-[address] [...] Detail Author Diagnostic radiograp hy of abdomen [facility] MG Breast - bilatera l Screening [facility] Patient Education Low back pain in adults [facility] Work Phone: Immunizations Immunization Date Immunization Notes Care Provider Fa cility 02-14-2023 influenza virus vaccine, unspecified formulation Roman GUAN [facility] 03-12-2022 SARS-CoV-2 (COVID-19 ) [id number] Roman GUAN [facility] Comment on above: Result Comment: 2023: [id number] 02-28-2022 influenza virus vaccine, split virus (incl. purified surface antigen) Savanna Higgins Other [facility] Other 02-28-2022 influenza virus vaccine, unspecified formulation [facility] 11-09-2021 SARS-CoV-2 (COVID-19 ) mRNA-1273 vaccine Roman GUAN [facility] Comment on above: Result Comment: 2023: [id number] 03-08-2021 SARS-CoV-2 (COVID-19 ) mRNA-1273 vaccine Roman GUAN [facility] 02-27-2021 influenza virus vaccine, split virus (incl. purified surface antigen) Savanna Higgins Other [facility] Other 02-27-2021 influenza virus vaccine, unspecified formulation [facility] 06-29-2020 SARS-CoV-2 (COVID-19 ) mRNA-1273 vaccine Roman GUAN [facility] 06-01-2020 SARS-CoV-2 (COVID-19 ) mRNA-1273 vaccine Roman GUAN [facility] 03-14-2020 zoster vaccine recombinant Roman GUAN [facility] 02-16-2020 influenza virus vaccine, split virus (incl. purified surface antigen) Savanna Higgins Other [facility] Other 02-16-2020 influenza virus vaccine, unspecified formulation [facility] 10-25-2019 pneumococcal polysaccharide vaccine, 23 valent Savanna Higgins Other [facility] 01-25-2019 influenza virus vaccine, unspecified formulation Roman GUAN [facility] 03-10-2018 pneumococcal conjuga te vaccine, 13 valent Savanna Higgins Other [facility] 02-14-2018 influenza virus vaccine, unspecified formulation Roman GUAN [facility] 01-08-2017 influenza virus vaccine, split virus (incl. purified surface antigen) Savanna Higgins Other [facility] Other 01-08-2017 influenza virus vaccine, unspecified formulation [facility] 02-06-2016 influenza virus vaccine, split virus (incl. purified surface antigen) Savanna Higgins Other [facility] Other 02-06-2016 influenza virus vaccine, unspecified formulation [facility] 03-24-2015 influenza virus vaccine, split virus (incl. purified surface antigen) Savanna Higgins Other [facility] Other 03-24-2015 influenza virus vaccine, unspecified formulation [facility] 02-26-2013 tetanus and diphther ia toxoids, adsorbed, preservative free, for adult use (5 Lf of tetanus toxoid and 2 Lf of diphtheria toxoid) Savanna Higgins Other [facility] Payers Date Payer Category Payer Medicare [id number] 1960 Medicare [id number] 1940 Unknown [id number] 2.16.84 [id number] 1940 Unknown [id number] 2.16.84 0.1.418701.3.579.2.593 1940 Unknown [id number] 2.16.84 0.1.452691.3.579.2.593 1940 Unknown [id number] 2.16.84 0.1.385560.3.579.2.593 1940 Unknown [id number] 2.16.84 0.1.871156.3.579.2.593 1940 Unknown [id number] 2.16.84 0.1.479141.3.579.2.593 1940 Unknown [id number] 2.16.84 0.1.928965.3.579.2.593 1940 Unknown [id number] 2.16.84 0.1.202407.3.579.2.593 1940 Unknown [id number] 2.16.84 0.1.075234.3.579.2.593 1940 Unknown [id number] 2.16.84 0.1.064318.3.579.2.593 1940 Unknown [id number] 2.16.84 0.1.710769.3.579.2.593 1940 Unknown [id number] 2.16.84 0.1.222033.3.579.2.593 1940 Unknown [id number] 2.16.8 40.1.953776.3.579.2.727 1940 Unknown [id number] 2.16.8 40.1.204215.3.579.2.727 1940 Unknown [id number] 2.16.8 40.1.832381.3.579.2.727 1940 Unknown [id number] 2.16.8 40.1.284791.3.579.2.727 Private Health Insurance [id number] Social History Date Type Detail Facility Unknown if ever smoked [facility] Other Sex Assigned At [facility] Start: 1940 Sex Assigned At Female F [facility] Start: 09-17-2023 End: 10-13-2023 Tobacco smoking status Never smoked tobacco (finding) [facility] Tobacco smoking status Never [facility] Functional Status Date Assessment Result Facility 10-13-2023 Functional Status N/A [facility] 09-17-2023 Functional Status N/A [facility] Clinical Notes 12-19-2021 to 10-13-2023 Note Date & Type Note Facility 10-13-2023 Hospital Discharg e instructions Patient Education 10/13/2023 13:39:08 Kidney Stones, Mtgv-[id number] Kidney Stones Kidney stones are rock-like masses [...] Follow these instructions at home: Medicines Take mwyq-ybl-ncbzsqx and prescription medicines only as told by [...] provider. Document Revised: 12/31/2021 Document Reviewed: 12/31/2021 [employer] Patient Education 2022 [employer]. Follow Up Care 09/17/2023 08:40:02 With:SHANNON SALGEURO, Roman Mitchell, JJ Address: [facility] [address], [place] [address] [phone] When: Unknown [facility] 09-17-2023 Hospital Discharg e instructions Patient Education [...] Follow these instructions at home: Medicines Take orxf-iyi-nmhwcfl and prescription medicines only as told by [...] provider. Document Revised: 08/07/2022 Document Reviewed: 08/07/2022 [employer] Patient Education 2022 [employer]. Follow Up Care 09/11/2023 08:49:49 With:SHANNON SALGUERO, JJ Rucker Address: [facility] [address], [place] [address]- When: Unknown [facility] [place] 01-31-2023 Evaluation note Encounter Date Diagnosis Assessment Notes Jan, Seasonal allergic rhinitis, unspecified trigger (ICD-10 - J30.2) [place] [facility] Other 09-01-2023 Evaluation note* Encounter Date Diagnosis Assessment Notes Treatment Notes Treatment Clinical Notes Jan, Piriformis syndrome of left side (ICD-10 - G57.02) Unable to add more tramadol - likely has pain clinic [facility]. PT order printed. Add steroids. Also gave copies of home exercises. [facility] Other 06-19-2023 Evaluation note* Encounter Date Diagnosis [...] - order handwritten and given to pt [facility] Other 04-27-2023 NoteCONSULTATION CONSULTATION DATE: 09/05/2022 TO: [...] our patients to inform us about any yfxi-zbx-grnsuiv medications or herbal remedies/nutritional supplements/alternative remedies. 2. [...] treatment options with their primary care provider.[id number] Note CONSULTATION PROCEDURE DATE: 12/25/2021 PREOPERATIVE DIAGNOSIS: [...] procedurally range of motion exercises are performed.[facility] 12-19-2021 NoteCONSULTATION CONSULTATION DATE: 12/19/2021 This [...] where she was seen by the physician elementary assistant teacher in the office and received left glenohumeral [...] the plan of care, to be contacted [facility] Future Appointments Appointment Date:10/13/2023 12:15:00 PM Scheduled Provider:Roman GUAN MD Location:[facility] Appointment Type:URO Office Visit [facility] [place] Evaluation noteNo InformationNort [facility] Other Evaluation noteNo assessment information available [facility] Work Phone: Evaluation note* Diagnosis Onset Date Resolution Status Right lumbar pain acute [facility] Work Phone: Evaluation note* Diagnosis Onset Date Resolution Status Right lumbar pain acute Medicare annual wellness visit, subsequent acute Nephrolithiasis acute Screening mammogram for breast cancer acute [facility] Work Phone: History general Narrative - Reported* Type Description Date Medical History migraine headache Medical History dizziness Medical History tremors Surgical History hysterectomy Surgical History bunionectomy Surgical History stapedectomy Hospitalization History see above [facility] Other Hospital course Narrative No data available for this section [facility] [employer] note No data available for this section [facility] [place] Summary Purpose Family History No Family History [...] and content) DATE CREATED AUTHOR 10/18/2022 [facility] DATE CREATED AUTHOR AUTHOR'S ORGANIZ ATION 11/26/2023 [facility] REASON FOR VISIT (unrecogniz ed section [...] BE BASED ON THE PRIMARY CLINICAL RECORDS. [employer] [facility]. provides no warranty or guarantee of the accuracy or completeness of information in this document.
== END 2023-12-09 12:52 | disposition home or self-care (01) ==
LOC: PM 12:52
PROVIDERS: PCP Family Medicine; Visit Provider Anesthesiology Pain Medicine
DX: M48.062 Spinal stenosis, lumbar region with neurogenic claudication (principal); M54.16 Radiculopathy, lumbar region
CPT/HCPCS: G0463

== ENCOUNTER 2023-12-30 06:38 | Day surgery (SDC) | payer MEDICARE, SELFPAY ==
--- OUTSIDE RECORDS SUMMARY | 2023-12-30 06:41 | XMS_ITS | CCD ---
Author Organization [facility] Care Team Providers Care Sql Server Consultant Name Role Phone GISELA, DR SAVANNA Willis [...] DR VALENTINA Rothman Attending Unavailable HIGGINS, DR SAVNANA Willis Consulting Unavailable HIGGINS, DR SAVANNA Willis Primary Care Unavailable BECKER ., DR VALENTINA Rothman Consulting Unavailable LAKSHMIPATHY ., NARPAULINA Admitting Jessy vailable LAKSHMIPATHY ., NARENDPATEL Consulting Jessy vailable LAKSHMIPATHY ., AJ Attending Jessy vailable HIGGINS, DR SAVANNA Willis Primary Care Unavailable HIGGINS, DR SAVANNA Willis Primary Care Unavailable HIGGINS, DR SAVANNA Willis Attending Unavailable BEAVER, DR MINE Barriga Consulting Unavailable IHGGINS, DR SAVANNA Willis Admitting Unavailable HIGGINS, DR [...] Sig (Original) atenolol 50 mg oral tablet (6 sources) beta-Adrenergic Tera Start: 09-17-2023 take 50 [...] take 1 tablet by mouth once daily Brielle-3 Fish Oil 1 tab, Oral, Daily, Refill(s) [...] days Active meloxicam 7.5 mg oral tablet (4 sources) Nonsteroidal Anti-inflammatory Drug Start: 10-02-2023 End: 11-18-2023 take 7.5 mg by mouth once daily Meloxicam Active 7.5 MG PO Daily November 18, 2023 11:23am methylPREDNISolone 4 mg oral tablet (3 sources) Corticosteroid Start: 09-30-2023 take 1 tablet [...] Act marysol mupirocin 0.02 mg/mg topical ointment (2 sources) RNA Synthetase Inhibitor Antibacterial Start: 11-18-2023 Mupirocin [...] day(s), # 30 cap(s), Refills(s) 0, Pharmacy: [facility]/pharmacy #[id number], 56.1, kg, 09/17/23 8:03:00 EDT, Weight Dosing Start Date: 09/17/23 Stop Date: 10/17/23 Status: Ordered tiZANidine 2 mg oral tablet (3 sources) Central alpha-2 Adrenergic Agonist Start: 09-30-2023 [...] (Original) diclofenac potassium 25 mg oral tablet (14 sources) Nonsteroidal Anti-inflammatory Drug Start: 10-02-2023 End: [...] 09/17/23 Status: Ordered take 1 tablet by [facility] four times daily at mealtime as needed Diclofenac Potassium 25 MG 1 tablet with food or milk as needed Orally Four times a day Active 24 hr metoprolol succinate 25 mg extended release oral capsule (10 sources) beta-Adrenergic Tera Start: 09-29-2023 End: 09-30-2023 [...] Documented Date Episodic/Chronic Calculus of urinary tract (11 sources) Ureteric stone; Translations: [Calculus of ureter] [...] Translations: [CHEST PAIN UNSPECIFIED] Onset: 10-02-2022 Episodic Open wounds of extremities (2 sources) Laceration of left lower leg; Translations: [Laceration without foreign body, left lower leg, initial encounter] 12-03-2023 Episodic Osteoarthritis (1 source) Primary osteoarthritis, left [...] conditions (not mental disorders or infectious disease) (9 sources) Encounter for screening mammogram for malignant neoplasm of breast; Translations: [Patient encounter status] Onset: 11-07-2021 Episodic Other skin disorders (5 sources) Actinic keratosis; Translations: [Actinic keratosis] Episodic Other upper respiratory disease (8 sources) Seasonal allergic rhinitis; Translations: [Other seasonal allergic rhinitis] Onset: 09-10-2017 12-09-2023 Chronic Other upper respiratory disease (5 sources) [...] Spondylosis; intervertebral disc disorders; other back problems (12 sources) Cervicalgia; Translations: [Lumbago] Onset: 09-05-2022 Episodic [...] CT Reporton 10-15-2023 RAD - CT Report [id number]# 1.00TIFF Najma [facility] Ambulatory Visit Summaryon 0 10-13-2023 Ambulatory [...] Vitamins oral capsule) omega-3 polyunsaturated fatty acids (Brielle-3 Fish Oil) tamsulosin (Flomax 0.4 mg Cap) [...] Follow Up with SHANNON SALGUERO, Roman Mitchell, JJ When: Where: [facility] [address] , [place] [address] [phone] Medications What How Much When Instructions Unchanged [...] or concerns Unchanged omega-3 polyunsaturated fatty acids (Brielle-3 Fish Oil) 1 tab By Mouth Every [...] groin. (more content not included)... Normal [facility] Patient Educationon 10-13-19 Patient Education Urology Kidney Stones Kidney stones [...] these instructions at home: Medicines ? Take monp-kpg-hvkpzrl and prescription medicines only as told by [...] provider. Document Revised: 12/31/2021 Document Reviewed: 12/31/2021 [employer] Patient Education ? 2022 [employer]. [facility] [facility] Urology Office/Clinic Noteon 10-13-2023 Urology Office/Clinic [...] pass, required surgery 2 years ago [place] Was told at this time that she had a puncture in her kidney that would heal. Follow-up With When Contact Information SHANNON SALGUERO, Roman Mitchell, [facility] [address], [place] [address]- [phone] Additional Instructions: f/u pending CT scan Patient Education Kidney Stones, Mpar-ep-Irkj Anabella Webber, personally scribed for Dr. Guan [...] Vitamins oral capsule, 1 cap(s), Oral, Daily Brielle-3 Fish Oil, 1 tab, Oral, Daily Osteo [...] virus vaccine, inactivated 02/14/2023 Recorded SARS-CoV-2 (COVID-19) mRNAMUL.ORD![id number] 03/12/2022 Recorded 2023-10-13: TPV80 influenza virus vaccine, inactivated 02/28/2022 Recorded SARS-CoV-2 (COVID-19) mRNA-1273 vaccine 11/09/2021 Recorded 2023-10-13: TPV80 SARS-CoV-2 (COVID-19) mRNA-12 (more content not included)... Normal [facility] Comment on above: Result Comment: Elec tronically Signed By: SHANNON SALGUERO, Roman Mitchell\.danyell\Date and Time Signed: 10/13/23 13:41 EDT\.br\Electronically Co-Signed By: Anabella Villalta\.br\Date and Time Co-Signed: 10/13/23 13:39 EDT RAD - MISCon 10-12-2023 [facility] [id number] #1.00TIFF Normal [facility] ED Note-Physicianon 09-18-19 ED Note-Physician [id number] 8#1.00TIFF Normal [facility] Formson 09-18-2023 Forms [id number] #1.00TIFF Normal [facility] RAD - CT Reporton 09-18-2023 RAD - CT Report [id number] 8#1.00TIFF Normal [facility] RAD - MISCon 09-18-2023 RAD - MISC [id number] 1#1.00TIFF Normal [facility] RAD - MIS [id number]# 1.00TIFF Normal [facility] - MIS [id number] 9#1.00TIFF Normal [facility] Ambulatory Visit Summaryon 0 09-17-2023 Ambulatory Visit Summary EDUARDO LEA Akua :1940 Visit Date:09/17/2023 Ambulatory Visit Instructions Your [...] Vitamins oral capsule) omega-3 polyunsaturated fatty acids (Brielle-3 Fish Oil) zolmitriptan (Zomig 5 mg oral [...] SALGUERO, Roman Mitchell Where: [facility] Patient Educationon 09-17-19 Patient Education Urology [...] these instructions at home: Medicines ? Take radc-nog-thrfbcz and prescription medicines only as told by [...] recommendations from (more content not included)... Normal [facility] Urology Office/Clinic Noteon 09-17-2023 Urology Office/Clinic Note Chief Complaint New pt HPI Staff 1 week follow up w/[facility]-09/15/23-[facility] Pt was seen at [facility] on 09/09/23 due to abdominal pain [...] yo female new pt following up to [facility] ED visit 09/09/23 due to intermittent [...] pass, required surgery 2 years ago in [place] Was told at this time that [...] 30 ct[address] SEs discussed[facility] -High fluid intake. -Pt to call or go to the ER if he were to experience fever, shaking, chills, uncontrolled nausea, vomiting, or pain. Follow-up With When Contact Information SHANNON SALGUERO, Roman Mitchell, URL [facility] [address] [place] [address]- Additional Instructions: 3 weeks with [facility] Patient [...] Vitamins oral capsule, 1 cap(s), Oral, Daily Brielle-3 Fish Oil, 1 tab, Oral, Daily Osteo [...] Lab Results (more content not included)... Normal [facility] Comment on above: Result Comment: Elec tronically Signed By: SHANNON SALGUERO, Roman Mitchell\.br\Date and Time Signed: 09/17/23 08:41 EDT\.br\Electronically Co-Signed By: Cynthia Jones\.br\Date and Time Co-Signed: 09/17/23 08:39 EDT Basophils Auto (Bld) [#/Vol] on 09-09-2023 Basophils (Bld) [#/Vol] 0.0 10 3/uL 0.0-0.1 [facility] Basophils/100 WBC Auto (Bld) on 09-09-2023 Basophils/100 WBC (Bld) 0.4 % 0.2-2.0 [facility] Casts typing in urine sedime nt by light microscopyon 09-09-2023 Casts LM Nom (Urine sed) NONE SEEN #/LPF NONE SEEN [facility] Eosinophils/100 WBC Auto (Bl d)on 09-09-2023 Eosinophils/100 WBC (Bld) 1.1 % 0.9-7.0 [facility] Erythrocyte distribution wid th Auto (RBC) [Ratio]on 09-09-2023 Erythrocyte distribution width (RBC) [Ratio] 13.0 % 11.0-15.0 [facility] Estimated glomerular filtrat ion rate (GFR) non- Americanon 09-09-2023 GFR/1.73 sq M.predicted among non-blacks MDRD (S/P/Bld) [Vol rate/Area] 52 mL/min/{1.73_m2} Low >=60 [facility] Globulin Calc (S) [Mass/Vol] on 09-09-2023 Globulin (S) [Mass/Vol] 3.5 g/dL [facility] Hematocrit Auto (Bld) [Volum e fraction]on 09-09-2023 Hematocrit (Bld) [Volume fraction] 39.0 % 36.0-48.0 [facility] Hemoglobin [Mass/volume] in Bloodon 09-09-2023 Hemoglobin (Bld) [Mass/Vol] 12.6 g/dL 12.0-16.0 [facility] Laboratory - Chemistry and C hemistry - challengeon 09-09-2023 Albumin [Mass/Vol] 3.6 g/dL 3.4-5.0 [facility] ALP [Catalytic activity/Vol] 74 U/L 46-116 [facility] ALT [Catalytic activity/Vol] 30 U/L 14-59 [facility] AST [Catalytic activity/Vol] 24 U/L 15-37 [facility] Bilirubin [Mass/Vol] 0.5 mg/dL 0.2-1.0 [facility] Calcium [Mass/Vol] 9.8 mg/dL 8.5-10.1 [facility] Chloride [Moles/Vol] 102 mmol/L 98-107 [facility] CO2 [Moles/Vol] 31.2 mmol/L 21.0-32.0 [facility] Creatinine [Mass/Vol] 1.01 mg/dL 0.55-1.02 [facility] GFR/1.73 sq M.predicted MDRD (S/P/Bld) [Vol rate/Area] mL/min/{1.73_m2} >=60 [facility] Glucose [Mass/Vol] 100 mg/dL 74-106 [facility] Lipase [Catalytic activity/Vol] 25.0 U/L 16.0-77.0 [facility] Potassium [Moles/Vol] 3.9 mmol/L 3.5-5.1 [facility] Protein [Mass/Vol] 7.1 g/dL 6.4-8.2 [facility] Sodium [Moles/Vol] 140 mmol/L 136-145 [facility] Urea nitrogen [Mass/Vol] 22.0 mg/dL High 7.0-18.0 [facility] Urea nitrogen/Creatinine [Mass ratio] 21.8 mg/mg [facility] Bilirubin Ql (U) Negative NEGATIVE [facility] Glucose (U) [Mass/Vol] Negative NEGATIVE [facility] Ketones Ql (U) Negative NEGATIVE [facility] pH (U) 6.0 [pH] 5.0-9.0 [facility] Specific gravity (U) [Rel density] 1.020 1.005-1.025 [facility] Urobilinogen Qn (U) 0.2 {Sosa'U}/dL 0.2-1.0 [facility] - Hematology and Cell countson 09-09-2023 Immature granulocytes/100 WBC (Bld) 0.3 % 0.0-0.5 [facility] - Specimen inform ationon 09-09-2023 Appearance (U) CLEAR CLEAR [facility] Color (U) DK. YELLOW YELLOW [facility] - Urinalysison Amorphous sediment LM Ql (Urine sed) RARE [facility] Leukocyte esterase Test strip Ql (U) TRACE Abnormal NEGATIVE [facility] Nitrite Ql (U) Negative NEGATIVE [facility] Protein Ql (U) Negative NEG/TRACE [facility] Leukocytes [#/volume] correc bill for nucleated erythrocytes in Blood by Automated counon 09-09-2023 WBC corrected for nucl RBC Auto (Bld) [#/Vol] 10.7 10 3/uL 4.0-11.0 [facility] Lymphocytes Auto (Bld) [#/Vo l]on 09-09-2023 Lymphocytes (Bld) [#/Vol] 1.5 10 3/uL 1.2-3.8 [facility] Lymphocytes/100 WBC Auto (Bl d)on 09-09-2023 Lymphocytes/100 WBC (Bld) 13.7 % Low 20.5-60.0 [facility] MCH Auto (RBC) [Entitic mass ]on 09-09-2023 MCH (RBC) [Entitic mass] 31.2 pg 26.7-34.0 [facility] MCHC Auto (RBC) [Mass/Vol]on 09-09-2023 MCHC (RBC) [Mass/Vol] 32.3 g/dL 29.9-35.2 [facility] MCV Auto (RBC) [Entitic vol] on 09-09-2023 MCV (RBC) [Entitic vol] 96.5 fL 81.0-99.0 [facility] Monocytes Auto (Bld) [#/Vol] on 09-09-2023 Monocytes (Bld) [#/Vol] 1.0 10 3/uL High 0.3-0.8 [facility] Monocytes/100 WBC Auto (Bld) on 09-09-2023 Monocytes/100 WBC (Bld) 9.5 % 1.7-12.0 [facility] Mucus LM Ql (Urine sed)on Mucus Ql (Urine sed) NONE SEEN NONE SEEN [facility] Neutrophils Auto (Bld) [#/Vo l]on 09-09-2023 Neutrophils (Bld) [#/Vol] 8.0 10 3/uL High 1.4-6.5 [facility] Neutrophils/100 WBC Auto (Bl d)on 09-09-2023 Neutrophils/100 WBC (Bld) 75.0 % 43.0-75.0 [facility] No Panel Informationon 09-08 Eosinophils # (Auto) 0.1 10 3/uL 0.0-0.7 [facility] Immature Granulocyte # (Auto) 0.03 10 3/uL 0.00-0.03 [facility] Urine Bacteria NONE SEEN #/HPF NONE SEEN [facility] Urine Culture Reflexed NO [facility] Urine Microscopic Review YES [facility] Urine Occult Blood LARGE Abnormal NEGATIVE [facility] Urine Other Crystals Seen #/HPF Abnormal None Seen [facility] Urine RBC 10-20 #/HPF Abnormal 0-2 [facility] Urine Squamous Epithelial Cells NONE SEEN #/LPF NONE/RARE [facility] Urine Uric Acid Crystals FEW [facility] Urine WBC 2-5 #/HPF Abnormal NONE SEEN [facility] Platelet mean volume Auto (B ld) [Entitic vol]on 09-09-2023 Platelet mean volume (Bld) [Entitic vol] 9.5 fL 9.5-13.5 [facility] Platelets Auto (Bld) [#/Vol] on 09-09-2023 Platelets (Bld) [#/Vol] 240 10 3/uL 150-450 [facility] RBC Auto (Bld) [#/Vol]on RBC (Bld) [#/Vol] 4.04 10 6/uL Low 4.20-5.40 [facility] Serum or plasma albumin/glob ulin mass ratioon 09-09-2023 Albumin/Globulin [Mass ratio] 1.0 {ratio} [facility] Serum or plasma anion gap de terminationon 09-09-2023 Anion gap [Moles/Vol] 10.7 mmol/L [facility] XR RIBS LT PA Stephen 3 [...] acute cardiopulmonary process. Electronically authenticated by: PB EGNAO Date: 2022-10-02 11:[address] [facility] XR CSPINE 2_3 VIEWSon 2022 XR CSPINE [...] ISAEL GRIFFIN Date: 2022-09-05 15:[address] [facility] CBC AUTO DIFFon 12-31-2021 BASO # 0.0 103/ul Normal 0.0-0.1 [facility] Comment on above: Performed By: #### C BC #### [facility] [address] [address] [address] Radha Land Basophils/100 WBC (Bld) 0.2 % Normal 0.2-2.0 [facility] Comment on above: Performed By: #### C BC #### [facility] [address], [place] [address] Dr. Radha Land EO # 0.2 103/ul Normal 0.0-0.7 [facility] Comment on above: Performed By: #### C BC #### [facility] [address] [place] [address] Dr. Radha Land Eosinophils/100 WBC (Bld) 1.7 % Normal 0.9-7.0 [facility] Comment on above: Performed By: #### C BC #### [facility] [address] [place] [address] Dr. Radha Land Erythrocyte distribution width (RBC) [Ratio] 13.4 % Normal 11.0-15.0 [facility] Comment on above: Performed By: #### C BC #### [facility] [address] [place] [address] Dr. Radha Land Hematocrit (Bld) [Volume fraction] 40.9 % Normal 36.0-48.0 [facility] Comment on above: Performed By: #### C BC #### [facility] [address] [place] [address] Dr. Radha Land Hemoglobin (Bld) [Mass/Vol] 13.1 g/dL Normal 12.0-16.0 [facility] Comment on above: Performed By: #### C BC #### [facility] [address] [place] [address] Dr. Radha Land IG # 0.05 10e3/ul Critically high 0.00-0.03 [facility] Comment on above: Performed By: #### C BC #### [facility] [address] [place] [address] Dr. Radha Land IG % 0.4 % Normal 0.0-0.[address] [facility] Comment on above: Performed By: #### C BC #### [facility] [address] [place] [address] Dr. Radha Land LYMPH # 1.4 103/ul Normal 1.2-3.[address] [facility] Comment on above: Performed By: #### C BC #### [facility] [address] [place] [address] Dr. Radha Land Lymphocytes/100 WBC (Bld) 10.8 % Critically low 20.5-60.0 [facility] Comment on above: Performed By: #### C BC #### [facility] [address] [place] [address] Dr. Radha Land MANUAL DIFF REQ NO Normal [facility] Comment on above: Performed By: #### C BC #### [facility] [address] [place] [address] Dr. Radha Land MCH (RBC) [Entitic mass] 31.5 pg Normal 26.7-34.0 [facility] Comment on above: Performed By: #### C BC #### [facility] [address] [place] [address] Dr. Radha Land MCHC (RBC) [Mass/Vol] 32.0 g/dL Normal 29.9-35.2 [facility] Comment on above: Performed By: #### C BC #### [facility] [address] [place] [address] Dr. Radha Land MCV (RBC) [Entitic vol] 98.3 fL Normal 81.0-99.0 [facility] Comment on above: Performed By: #### C BC #### [facility] [address] [place] [address] Dr. Radha Land MONO # 1.3 103/ul Critically high 0.3-0.8 [facility] Comment on above: Performed By: #### C BC #### [facility] [address] [place] [address] Dr. Radha Land Monocytes/100 WBC (Bld) 9.7 % Normal 1.7-12.0 [facility] Comment on above: Performed By: #### C BC #### [facility] [address] [place] [address] Dr. Radha Land NEUT # 10.2 103/ul Critically high 1.4-6.5 [facility] Comment on above: Performed By: #### C BC #### [facility] [address] [place] [address] Dr. Radha Land Neutrophils/100 WBC (Bld) 77.2 % Critically high 43.0-75.0 [facility] Comment on above: Performed By: #### C BC #### [facility] [address] [place] [address] Dr. Radha Land Platelet mean volume (Bld) [Entitic vol] 9.7 fL Normal 9.5-13.5 [facility] Comment on above: Performed By: #### C BC #### [facility] [address] [address] [address] Radha Land PLT 235 103/ul Normal 150-[address] [facility] Comment on above: Performed By: #### C BC #### [facility] [address] [address] [address] Radha Land RBC 4.16 106/ul Critically low 4.20-5.40 [facility] Comment on above: Performed By: #### C BC #### [facility] [address] [place] [address] Dr. Radha Land WBC 13.2 103/ul Critically high 4.0-11.[address] [facility] Comment on above: Performed By: #### C BC #### [facility] [address] [place] [address] Dr. Radha Land SED RATE WESTERGRENon 2021 SED RATE 35 mm/hr Critically high <=30 [facility] Comment on above: Performed By: #### S EDR #### [facility] [address] [place] [address] Dr. Radha Land CBC AUTO DIFFon 11-07-2021 BASO # 0.0 103/ul Normal 0.0-0.1 [facility] Comment on above: Performed By: #### C BC ####[facility] [address] [address]Dr. Radha Land Basophils/100 WBC (Bld) 0.3 % Normal 0.2-2.0 [facility] Comment on above: Performed By: #### C BC ####[facility] [address] [address]Dr. Radha Land EO # 0.2 103/ul Normal 0.0-0.[address] [facility] Comment on above: Performed By: #### C BC ####[facility] [address] [place], [place] [address]Dr. Radha Emery Eosinophils/100 WBC (Bld) 3.3 % Normal 0.9-7.[address] [facility] Comment on above: Performed By: #### C BC ####[facility] [address] [place], [place] [address]Dr. Radha Land Erythrocyte distribution width (RBC) [Ratio] 13.2 % Normal 11.0-15.[address] [facility] Comment on above: Performed By: #### C BC ####[facility] [address] [place], [place] [address]Dr. Radha Land Hematocrit (Bld) [Volume fraction] 41.9 % Normal 36.0-48.[address] [facility] Comment on above: Performed By: #### C BC ####[facility] [address] [place], [place] [address]Dr. Radha Land Hemoglobin (Bld) [Mass/Vol] 13.4 g/dL Normal 12.0-16.[address] [facility] Comment on above: Performed By: #### C BC ####[facility] [address] [place], [place] [address]Dr. Radha Emery IG # 0.01 10e3/ul Normal 0.00-0.[address] [facility] Comment on above: Performed By: #### C BC ####[facility] [address] [place], [place] [address]Dr. Radha Land IG % 0.2 % Normal 0.0-0.[address] [facility] Comment on above: Performed By: #### C BC ####[facility] [address] [place], [place] [address]Dr. Radha Land LYMPH # 1.6 103/ul Normal 1.2-3.[address] [facility] Comment on above: Performed By: #### C BC ####[facility] [address] [place], [place] [address]Dr. Radha Land Lymphocytes/100 WBC (Bld) 27.5 % Normal 20.5-60.[address] [facility] Comment on above: Performed By: #### C BC ####[facility] [address] [address]DrHernandez Land MANUAL DIFF REQ NO Normal [facility] Comment on above: Performed By: #### C BC ####[facility] [address] [address]Dr. Radha Land MCH (RBC) [Entitic mass] 31.2 pg Normal 26.7-34.0 [facility] Comment on above: Performed By: #### C BC ####[facility] [address] [place], [place] [address]Dr. Radha Land MCHC (RBC) [Mass/Vol] 32.0 g/dL Normal 29.9-35.[address] [facility] Comment on above: Performed By: #### C BC ####[facility] [address] [place], [place] [address]DrHernandez Land MCV (RBC) [Entitic vol] 97.7 fL Normal 81.0-99.[address] [facility] Comment on above: Performed By: #### C BC ####[facility] [address] [place], [place] [address]DrHernandez Land MONO # 0.7 103/ul Normal 0.3-0.[address] [facility] Comment on above: Performed By: #### C BC ####[facility] [address] [place], [place] [address]DrHernandez Land Monocytes/100 WBC (Bld) 12.4 % Critically high 1.7-12.[address] [facility] Comment on above: Performed By: #### C BC ####[facility] [address] [place], [place] [address]DrHernandez Land NEUT # 3.2 103/ul Normal 1.4-6.[address] [facility] Comment on above: Performed By: #### C BC ####[facility] [address] [place], [place] [address]DrHernandez Land Neutrophils/100 WBC (Bld) 56.3 % Normal 43.0-75.0 [facility] Comment on above: Performed By: #### C BC ####[facility] [address] [address]Dr. Radha Land Platelet mean volume (Bld) [Entitic vol] 9.4 fL Critically low 9.5-13.5 [facility] Comment on above: Performed By: #### C BC ####[facility] [address] [address]Dr. Radha Land PLT 226 103/ul Normal 150-[address] [facility] Comment on above: Performed By: #### C BC ####[facility] [address] [address]Dr. Radha Land RBC 4.29 106/ul Normal 4.20-5.40 [facility] Comment on above: Performed By: #### C BC ####[facility] [facility] [id number] [address]Dr. Radha Land WBC 5.7 103/ul Normal 4.0-11.[address] [facility] Comment on above: Performed By: #### C BC ####[facility] [id number] [id number]. Radha Land LIPID PROFILEon 11-07-2021 CHOL-HDL RATIO NORM SEE BELOW Normal [facility] Comment on above: Result Comment: 3.3 - 4.4 LOW RISK 4.4 - 7.1 AVERAGE RISK 7.1 - 11.0 MODERATE RISK >11.0 HIGH RISK Performed By: #### L IPID, CMP #### [facility] [address] [address] [address] Radha Land Cholesterol [Mass/Vol] 257 mg/dL Critically high <=[address] [facility] Comment on above: Performed By: #### L IPID, CMP #### [facility] [address] [address] [address] Radha Land Cholesterol in HDL [Mass/Vol] 76 mg/dL Critically high 40-[address] [facility] Comment on above: Performed By: #### L IPID, CMP #### [facility] [address] [address] [address] Radha Land Cholesterol in LDL [Mass/Vol] 163.8 mg/dL Normal [facility] Comment on above: Performed By: #### L IPID, CMP #### [facility] [address] [address] [address] Radha Land Cholesterol.total/Cho lesterol in HDL [Mass ratio] 3.4 {ratio} Normal [facility] Comment on above: Performed By: #### L IPID, CMP #### [facility] [address] [address] [address] Radha Land HDL NORMAL > or = 60 mg/dl - LOW CARDIOVASCULAR RISK <40 mg/dl - HIGH CARDIOVASCULAR RISK Normal [facility] Comment on above: Performed By: #### L IPID, CMP #### [facility] [address] [place] [address] Dr. Radha aLnd LDL CALC NORMAL SEE BELOW Normal [facility] Comment on above: Result Comment: <100 mg/dl OPTIMAL 100 - 129 mg/dl NEAR OR ABOVE OPTIMAL 130 - 159 mg/dl BORDERLINE HIGH 160 - 189 mg/dl HIGH >190 mg/dl VERY HIGH Performed By: #### L IPID, CMP #### [facility] [address] [address] [address] Radha Land Triglyceride [Mass/Vol] 86 mg/dL Normal <=150 [facility] Comment on above: Performed By: #### L IPID, CMP #### [facility] [address] [address] [address] Radha Land VLDL CALC 17.2 mg/dL Normal [facility] Comment on above: Performed By: #### L IPID, CMP #### [facility] [address] [address] [address] Radha Land MG MAMM SCREEN 3D GIANCARLO CADon 11-07-2021 MG MAMM SCREEN 3D GIANCARLO CAD Patient: EDUARDO LEA Exam Date: 11/07/2021 : 1940 Gender:F Ordering : DR SAVANNA HIGGINS M.D. Admission #: [id number] Family : Order #: [id number] CLICK HERE TO VIEW EXAM RADIOLOGY REPORT [...] ovarian cancer at age 47. LOCATION: [facility] BREAST COMPOSITION: Extremely dense, which lowers [...] Arriaga MD on 11/07/2021 at 11:[address] [facility] PROF 14(COMP METB)on 022 Albumin [Mass/Vol] 3.6 g/dL Normal 3.4-5.0 [facility] Comment on above: Performed By: #### L IPID, CMP #### [facility] [address] [place] [address] Dr. Radha Land Albumin/Globulin [Mass ratio] 0.9 {ratio} Normal [facility] Comment on above: Performed By: #### L IPID, CMP #### [facility] [address] [place] [address] Dr. Radha Land ALP [Catalytic activity/Vol] 79 U/L Normal 46-116 [facility] Comment on above: Performed By: #### L IPID, CMP #### [facility] [address] [place] [address] Dr. Radha Land ALT [Catalytic activity/Vol] 32 U/L Normal 14-59 [facility] Comment on above: Performed By: #### L IPID, CMP #### [facility] [address] [address] [address] Radha Land Anion gap [Moles/Vol] 6.1 mmol/L Normal [facility] Comment on above: Performed By: #### L IPID, CMP #### [facility] [address] [place] [address] Dr. Radha Land AST [Catalytic activity/Vol] 28 U/L Normal 15-37 [facility] Comment on above: Performed By: #### L IPID, CMP #### [facility] [address] [place] [address] Dr. Radha Land Bilirubin [Mass/Vol] 0.6 mg/dL Normal 0.2-1.[address] [facility] Comment on above: Performed By: #### L IPID, CMP #### [facility] [address] [place] [address] Dr. Radha Land Calcium [Mass/Vol] 9.1 mg/dL Normal 8.5-10.1 [facility] Comment on above: Performed By: #### L IPID, CMP #### [facility] [address] [place] [address] Dr. Radha Land Chloride [Moles/Vol] 104 mmol/L Normal 98-[address] [facility] Comment on above: Performed By: #### L IPID, CMP #### [facility] [address] [place] [address] Dr. Radha Land CO2 [Moles/Vol] 31.0 mmol/L Normal 21.0-32.0 [facility] Comment on above: Performed By: #### L IPID, CMP #### [facility] [address] [place] [address] Dr. Radha Land Creatinine [Mass/Vol] 0.86 mg/dL Normal 0.55-1.[address] [facility] Comment on above: Performed By: #### L IPID, CMP #### [facility] [address] [place] [address] Dr. Radha Land EGFR-AF MICRONESIAN >60 Normal >=60 [facility] Comment on above: Performed By: #### L IPID, CMP #### [facility] [address] [address] [address] Radha Land EGFR-NON AF MICRONESIAN >60 Normal >=[address] [facility] Comment on above: Performed By: #### L IPID, CMP #### [facility] [address] [address] [address] Radha Land Globulin (S) [Mass/Vol] 4.1 g/dL Normal [facility] Comment on above: Performed By: #### L IPID, CMP #### [facility] [address] [address] [address] Radha Land Glucose [Mass/Vol] 89 mg/dL Normal 74-106 [facility] Comment on above: Performed By: #### L IPID, CMP #### [facility] [address] [place] [address] Dr. Radha Land Potassium [Moles/Vol] 4.1 mmol/L Normal 3.5-5.[address] [facility] Comment on above: Performed By: #### L IPID, CMP #### [facility] [address] [place] [address] Dr. Radha Land Protein [Mass/Vol] 7.7 g/dL Normal 6.4-8.2 [facility] Comment on above: Performed By: #### L IPID, CMP #### [facility] [address] [place] [address] Dr. Radha Land Sodium [Moles/Vol] 137 mmol/L Normal 136-145 [facility] Comment on above: Performed By: #### L IPID, CMP #### [facility] [address] [place] [address] Dr. Radha Land Urea nitrogen [Mass/Vol] 12.0 mg/dL Normal 7.0-18.[address] [facility] Comment on above: Performed By: #### L IPID, CMP #### [facility] [address] [place] [address] Dr. Radha Land Urea nitrogen/Creatinine [Mass ratio] 14.0 mg/mg Normal [facility] Comment on above: Performed By: #### L IPID, CMP #### [facility] [address] [address] [address] Radha Land Vital Signs Date Time Vital Sign Value Performing Clinician Facility 11-18-2023 10:53-0400 Body height 165.1 cm [facility] 11-18-2023 10:53-0400 Body mass index (BMI) [Ratio] 20.5 kg/m2 [facility] 11-18-2023 10:53-0400 Body weight 55.79 kg [facility] 11-18-2023 10:53-0400 Diastolic blood pressure 55 mm[Hg] [facility] 11-18-2023 10:53-0400 Heart rate 65 /min [facility] 11-18-2023 10:53-0400 Systolic blood pressure 132 mm[Hg] [facility] 11-06-2023 11:11-0400 Body height 165.1 cm [facility] 11-06-2023 11:11-0400 Body mass index (BMI) [Ratio] 20.2 kg/m2 [facility] 11-06-2023 11:11-0400 Body weight 55.33 kg [facility] 11-06-2023 11:11-0400 Diastolic blood pressure 67 mm[Hg] [facility] 11-06-2023 11:11-0400 Heart rate 61 /min [facility] 11-06-2023 11:11-0400 Systolic blood pressure 124 mm[Hg] [facility] 10-13-2023 12:31-0400 Blood Pressure Location Roman GUAN [facility] 10-13-2023 12:31-0400 Diastolic blood pressure 78 mm[Hg] Roman GUAN [facility] 10-13-2023 12:31-0400 Heart rate 80 /min Roman GUAN [facility] 10-13-2023 12:31-0400 Respiratory rate 16 /min Roman GUAN [facility] 10-13-2023 12:31-0400 Systolic blood pressure 134 mm[Hg] oRman GUAN [facility] 09-30-2023 14:31-0400 Body height 165.1 cm [facility] 09-30-2023 14:31-0400 Body mass index (BMI) [Ratio] 20.5 kg/m2 [facility] 09-30-2023 14:31-0400 Body weight 55.79 kg [facility] 09-30-2023 14:31-0400 Diastolic blood pressure 62 mm[Hg] [facility] 09-30-2023 14:31-0400 Heart rate 64 /min [facility] 09-30-2023 14:31-0400 Systolic blood pressure 104 mm[Hg] [facility] 09-17-2023 08:00-0400 Blood Pressure Location Roman GUAN [facility] 09-17-2023 08:00-0400 Diastolic blood pressure 80 mm[Hg] Romanarminda GUAN [facility] 09-17-2023 08:00-0400 Heart rate 64 /min Roman GUAN [facility] 09-17-2023 08:00-0400 Systolic blood pressure 132 mm[Hg] Roman GUAN [facility] 01-10-2023 09:45-0400 Body height 165.1 cm Savanna Higgins Other [employer] Other 01-10-2023 09:45-0400 Body mass index (BMI) [Ratio] 20.87 kg/m2 Savanna Higgins Other [employer] Other 01-10-2023 09:45-0400 Body weight 56.88 kg Savanna Higgins Other [employer] Other 01-10-2023 09:45-0400 Diastolic blood pressure 78 mm[Hg] Savanna Higgins Other [employer] Other 01-10-2023 09:45-0400 Systolic blood pressure 142 mm[Hg] Savanna Higgins Other [employer] Other 10-28-2022 08:30-0400 Body height 165.1 cm Savanna Higgins Other [employer] Other 10-28-2022 08:30-0400 Body mass index (BMI) [Ratio] 20.47 kg/m2 Savanna Higgins Other [employer] Other 10-28-2022 08:30-0400 Body weight 55.79 kg Savanna Higgins Other [employer] Other 10-28-2022 08:30-0400 Diastolic blood pressure 47 mm[Hg] Savanna Higgins Other [employer] Other 10-28-2022 08:30-0400 Systolic blood pressure 124 mm[Hg] Savanna Higgins Other [employer] Other Encounters Encounter Date Encounter Type Care Provider Facility Start: 10-15-2024 ambulatory Roman Mota ty:[facility] Start: 12-09-2023 End: 12-09-2023 ambulatory [facility] Work Phone: Start: 12-09-2023 End: 12-09-2023 Patient encounter procedure [facility] Work Phone: Start: 11-18-2023 End: 11-18-2023 [facility] Work [facility]: Start: 11-18-2023 End: 11-18-2023 Patient encounter procedure [facility] Work Phone: Start: 11-10-2023 Patient encounter procedure [facility] Start: 11-06-2023 End: 11-06-2023 Patient encounter procedure [facility] Work Phone: Start: 10-13-2023 End: 10-13-2023 ambulatory Romanarminda GUAN Facility:[facility] Start: 10-13-2023 End: 10-13-2023 Patient encounter procedure Roman GUAN [facility] Start: 09-30-2023 End: 09-30-2023 ambulatory [facility] Work Phone: Start: 09-30-2023 End: 09-30-2023 Patient encounter procedure [facility] Work Phone: Start: 09-17-2023 End: 09-17-2023 ambulatory Roman GUAN Facility:[facility] Start: 09-17-2023 End: 09-17-2023 Patient encounter procedure Roman GUAN [facility] Start: 09-11-2023 ambulatory Romanarminda GUAN Facility :[facility] [place] Start: 09-09-2023 Non-patient / Non-visit [facility] Work Phone: Start: 08-26-2023 End: 08-26-2023 ambulatory [facility] Work Phone: Start: 08-26-2023 End: 08-26-2023 Patient encounter procedure [facility] Work Phone: Start: 03-28-2023 End: 03-28-2023 ambulatory Savanna Higgins Other [employer] Other Start: 03-28-2023 Telephone encounter Savanna Higgins [facility] Start: 01-31-2023 End: 01-31-2023 ambulatory Savanna Higgins Other [employer] Other Start: 01-31-2023 Nursing evaluation o f patient and report Savanna Gisela [facility] Start: 01-14-2023 End: 01-14-2023 ambulatory Savanna Gisela Other [employer] Other Start: 01-14-2023 Telephone encounter Savanna Gisela [facility] Start: 01-10-2023 End: 01-10-2023 ambulatory Savanna Gisela Other [employer] Other Start: 01-10-2023 Office outpatient visit 15 minutes Savannagerman Higgins [facility] Start: 10-28-2022 End: 10-28-2022 ambulatory Savanna Gisela Other [employer] Other Start: 10-28-2022 Patient encounter procedure Savanna Gisela [facility] Start: 10-24-2022 End: 10-24-2022 ambulatory Savanna Gisela Other [employer] Other Start: 10-24-2022 Telephone encounter Savanna Higgins [facility] Start: 10-08-2022 End: 10-08-2022 ambulatory NARENDRANATH LAKSHMIPATHY . Facility:[facility] Start: 10-02-2022 End: 10-03-2022 ambulatory [...] 12-31-2021 Adult health examination Savanna Higgins Other [place] [employer] Other Start: 12-31-2021 End: 01-01-[address] [...] removed Roman GUAN Excision of bunion [facility] Comment on above: bilateralwillard Hysterectomy and giancarlo ateral salpingo-oophorectomy sample (specimen) Roman GUAN Screening for malign ant neoplasm of breast Savanna Higgins Other stapidectomy 3 Roman JODI Rothman Comment on above: right ear Plan of Treatment Date Care Activity Detail Author Diagnostic radiograp hy of abdomen [facility] MG Breast - bilatera l Screening [facility] Patient Education Low back pain in adults [facility] Work Phone: [facility] Immunizations Immunization Date Immunization Notes Care Provider Melchor dawkins 02-14-2023 influenza virus vaccine, unspecified formulation Roman GUAN [facility] 03-12-2022 SARS-CoV-2 (COVID-19 ) [id number] Roman GUAN [facility] Comment on above: Result Comment: 2023: [id number] 02-28-2022 influenza virus vaccine, split virus (incl. purified surface antigen) Savanna Higgins Other [employer] Other 02-28-2022 influenza virus vaccine, unspecified formulation [facility] 11-09-2021 SARS-CoV-2 (COVID-19 ) mRNA-1273 vaccine Roman GUAN [facility] Comment on above: Result Comment: 2023: [id number] 03-08-2021 SARS-CoV-2 (COVID-19 ) mRNA-1273 vaccine Roman GUAN [facility] 02-27-2021 influenza virus vaccine, split virus (incl. purified surface antigen) Savanna Higgins Other [employer] Other 02-27-2021 influenza virus vaccine, unspecified formulation [facility] 06-29-2020 SARS-CoV-2 (COVID-19 ) mRNA-1273 vaccine Roman GUAN [facility] 06-01-2020 SARS-CoV-2 (COVID-19 ) mRNA-1273 vaccine Roman GUAN [facility] 03-14-2020 zoster vaccine recombinant Roman GUAN [facility] 02-16-2020 influenza virus vaccine, split virus (incl. purified surface antigen) Savanna Higgins Other [employer] Other 02-16-2020 influenza virus vaccine, unspecified formulation [facility] 10-25-2019 pneumococcal polysaccharide vaccine, 23 valent Savanna Higgins Other [facility] 01-25-2019 influenza virus vaccine, unspecified formulation Roman GUAN [facility] 03-10-2018 pneumococcal conjuga te vaccine, 13 valent Savanna Higgins Other [facility] 02-14-2018 influenza virus vaccine, unspecified formulation Roman GUAN [facility] 01-08-2017 influenza virus vaccine, split virus (incl. purified surface antigen) Savanna Higgins Other [employer] Other 01-08-2017 influenza virus vaccine, unspecified formulation [facility] 02-06-2016 influenza virus vaccine, split virus (incl. purified surface antigen) Savanna Higgins Other [employer] Other 02-06-2016 influenza virus vaccine, unspecified formulation [facility] 03-24-2015 influenza virus vaccine, split virus (incl. purified surface antigen) Savanna Higgins Other [employer] Other 03-24-2015 influenza virus vaccine, unspecified formulation [facility] 02-26-2013 tetanus and diphther ia toxoids, adsorbed, preservative free, for adult use (5 Lf of tetanus toxoid and 2 Lf of diphtheria toxoid) Savanna Higgins Other [facility] Payers Date Payer Category Payer Medicare [id number] 1960 Medicare [id number] 1940 Unknown [id number] 2.16.84 [id number] 1940 Unknown [id number] 2.16.84 [id number] 1940 Unknown [id number] 2.16.84 0.1.443875.3.579.2.593 1940 Unknown [id number] 2.16.84 0.1.618135.3.579.2.593 1940 Unknown [id number] 2.16.84 0.1.800986.3.579.2.593 1940 Unknown [id number] 2.16.84 0.1.986350.3.579.2.593 1940 Unknown [id number] 2.16.84 0.1.577273.3.579.2.593 1940 Unknown [id number] 2.16.84 0.1.216275.3.579.2.593 1940 Unknown [id number] 2.16.84 0.1.308138.3.579.2.593 1940 Unknown [id number] 2.16.84 0.1.611923.3.579.2.593 1940 Unknown [id number] 2.16.84 0.1.081946.3.579.2.593 1940 Unknown [id number] 2.16.84 0.1.614748.3.579.2.593 1940 Unknown [id number] 2.16.8 40.1.167844.3.579.2.727 1940 Unknown [id number] 2.16.8 40.1.180638.3.579.2.727 1940 Unknown [id number] 2.16.8 40.1.122438.3.579.2.727 1940 Unknown [id number] 2.16.8 40.1.982842.3.579.2.727 Private Health Insurance [id number] Social History Date Type Detail Facility Unknown if ever smoked [employer] Other [facility]igned At [facility] Start: 1940 Sex Assigned At Female F [facility] Start: 09-17-2023 End: 10-13-2023 Tobacco smoking status Never smoked tobacco (finding) [facility] Tobacco smoking status Never [facility] Functional Status Date Assessment Result Facility 10-13-2023 Functional Status N/A [facility] 09-17-2023 Functional Status N/A [facility] Clinical Notes 12-19-2021 to 10-13-2023 Note Date & Type Note Facility 10-13-2023 Hospital Discharg e instructions Patient Education 10/13/2023 13:39:08 Kidney Stones, Efec-ts-Oqyb Kidney Stones Kidney stones are rock-like masses [...] Follow these instructions at home: Medicines Take cidz-blj-ktisbun and prescription medicines only as told by [...] provider. Document Revised: 12/31/2021 Document Reviewed: 12/31/2021 [employer] Patient Education 2022 [employer]. Follow Up Care 09/17/2023 08:40:02 With:SHANNON SALGUERO, Roman [place], URL Address: [facility] [address] , [place] [address]- [phone] When: Unknown [facility] 09-17-2023 Hospital Discharg e instructions Patient Education [...] Follow these instructions at home: Medicines Take visx-nxt-pvknrrg and prescription medicines only as told by [...] provider. Document Revised: 08/07/2022 Document Reviewed: 08/07/2022 [employer] Patient Education 2022 [employer]. Follow Up Care 09/11/2023 08:49:49 With:SHANNON SALGUERO, [facility] [place], JJ Address: [facility] [address], [place] [address]- When: Unknown [facility] 01-31-2023 Evaluation note Encounter Date Diagnosis Assessment Notes Jan, Seasonal allergic rhinitis, unspecified trigger (ICD-10 - J30.2) [employer] Other 09-01-2023 Evaluation note* Encounter Date Diagnosis Assessment Notes Treatment Notes Treatment Clinical Notes Jan, Piriformis syndrome of left side (ICD-10 - G57.02) Unable to add more tramadol - likely has pain clinic [facility]. PT order printed. Add steroids. Also gave copies of home exercises. [employer] Other 06-19-2023 Evaluation note* Encounter Date Diagnosis [...] - order handwritten and given to pt [employer] Other 04-27-2023 NoteCONSULTATION CONSULTATION DATE: 09/05/2022 TO: [...] our patients to inform us about any fmpr-jli-xveoyuz medications or herbal remedies/nutritional supplements/alternative remedies. 2. [...] treatment options with their primary care provider.[id number] Note CONSULTATION PROCEDURE DATE: 12/25/2021 PREOPERATIVE DIAGNOSIS: [...] procedurally range of motion exercises are performed.[facility] 12-19-2021 NoteCONSULTATION CONSULTATION DATE: 12/19/2021 This [...] where she was seen by the physician physician assistant in the office and received left [...] the plan of care, to be contacted LARISA.[facility] Future Appointments Appointment Date:10/13/2023 12:15:00 PM Scheduled Provider:Roman GUAN MD Location:[facility] Appointment Type:URO Office Visit [facility] Evaluation noteNo InformationNort [employer] Other Evaluation noteNo assessment information available [facility] Work Phone: Evaluation note* Diagnosis Onset Date Resolution Status Right lumbar pain acute [facility] Work Phone: Evaluation note* Diagnosis Onset Date Resolution Status Right lumbar pain acute Medicare annual wellness visit, subsequent acute Nephrolithiasis acute Screening mammogram for breast cancer acute [facility] Work Phone: Evaluation note* Diagnosis Onset Date Resolution Status Right lumbar pain acute Medicare annual wellness visit, subsequent acute Nephrolithiasis acute Screening mammogram for breast cancer acute Laceration of left lower leg without complication acute Lumbar back pain acute [facility] Work Phone: History general Narrative - Reported* Type Description Date Medical History migraine headache Medical History dizziness Medical History tremors Surgical History hysterectomy Surgical History bunionectomy Surgical History stapedectomy Hospitalization History see above [employer] Other Hospital course Narrative No data available for this section [facility] [place] [employer] Progress note No data available for this section [facility] [place] [employer] Summary Purpose Family History Relationship Condition Age [...] subsequent Nephrolithiasis Screening mammogram for breast cancer Chief Complaint check up wellness spot on leg Allergy shot Reason for Visit Right lumbar pain Medicare annual wellness visit, subsequent Nephrolithiasis Screening mammogram for breast cancer Laceration of left lower leg without complication Lumbar back pain Additional Source Comments INFORMATION SOURCE (unrecogn ized section and content) DATE CREATED AUTHOR 10/18/2022 [facility] DATE CREATED AUTHOR AUTHOR'S ORGANIZ ATION 11/26/2023 [facility] REASON FOR VISIT (unrecogniz ed section [...] November 18, 2023 End: November 18, 2023 Team Status: Inactive Member Role Status Dates Savanna Higgins MD Primary Care Provide r, Attending Provider Active Start: December 09, 2023 End: December 09, 2023 Goals (unrecognized section and content) Goals [...] BE BASED ON THE PRIMARY CLINICAL RECORDS. [employer] provides no warranty or guarantee of the accuracy or completeness of information in this document.
[2023-12-30 06:57] VITALS: BP 155/83; PULSE 63; TEMP 36.4; O2SAT 96
[2023-12-30 07:51] VITALS: BP 167/76; PULSE 63; O2SAT 97
[2023-12-30 07:54] VITALS: BP 158/74; PULSE 66; O2SAT 97
[2023-12-30] MEDS: IOHEXOL 240 MG/ML - 10 ML VIAL 12 MG INJ (07:57)
[2023-12-30] MEDS: BUPIVACAINE HCL 0.25% PF 25 MG/10 ML VIAL 2 ML INJ (07:57)
[2023-12-30] MEDS: 0.9 % SODIUM CHLORIDE 10 ML SYRINGE - SALINE FLUSH 2 ML INJ (07:57)
[2023-12-30] MEDS: METHYLPREDNISOLONE ACETATE 80 MG/ML VIAL INJ (07:57)
[2023-12-30] MEDS: LIDOCAINE HCL 2% 400 MG/20 ML MDV INJ (07:57)
--- NOTE | 2023-12-30 08:24 | P.ON_ITS ---
Date of procedure: 12/30/23 Pre-op diagnosis: Lumbar stenosis with neurogenic claudication Post-op diagnosis: same as pre-op Procedure: Lumbar 5/Sacral 1 Epidural Steroid Injection Under fluoroscopic guidance Immediate complications none Solution used for injection: Marcaine 0.25% 2mL, 2cc Normal saline, Depo-Medrol 80mg Omnipaque 3 mL Anesthesia local 2% lidocaine up to 4ml Timeout process compliant After informed consent obtained. Patient brought to the procedure room placed in the prone position. Skin overlying the area was prepped and draped in a sterile fashion using betadine. 25 gauge needle used to raise a skin wheel with local anesthetic over the target area identified under fluoroscopy. A 17 gauge Touhy needle Was inserted over the anesthetized area and directed towards the inter- space under fluoroscopic guidance. Epidural space was identified with loss of resistance technique to air. Needle Tip placement confirmed with injection of contrast solution in AP and Lateral views. Steroid solution was then injected. Anesthesia: Local Surgeon: Christian Mortensen Condition: stable
== END 2023-12-30 07:59 | disposition home or self-care (01) ==
LOC: SURGOUT 06:39
PROVIDERS: PCP Family Medicine; Visit Provider Anesthesiology Pain Medicine
DX: M48.062 Spinal stenosis, lumbar region with neurogenic claudication (principal)
CPT/HCPCS: 62323; J0665; J1010; Q9966

== ENCOUNTER 2024-01-08 09:01 | Outpatient (OUT) | payer MEDICARE, SELFPAY ==
--- NOTE | 2024-01-08 09:24 | PM.CN ---
Consult Note: HPI Data of Consult Patient: known to practice within the last 3 years Requesting Physician: Ana Gracia NP Primary Care Provider: Savanna Guajardo MD Consult Narrative Reason for consult: chronic low back pain Narrative: Ninfa Franco a pleasant 83 year old female presents for evaluation of chronic low back pain. Patient has a chronic history of low back pain unresponsive to conservative medications including tylenol, OTC NSAIDs, heat, ice and PT. Patient engaged in aquatherapy at this time with no benefit, has attended 6/8 visits. Patient recently underwent a L5/S1 STEVEN with 90% improvement in pain for 3 days before pain returned to baseline. Patient continues to have moderate to severe low back pain, at this time no radiculopathy. Pain 8/10 increased with twsiting pushing pulling standing bending and activity. Pain improved with diclofenac, tramadol, sitting, lying, and sleep. cc:: CC: Ana Gracia NP Review of Systems ROS Status of ROS 10 or more systems reviewed and unremarkable except as noted in history and below Musculoskeletal Reports: back pain, neck pain and joint pain; Denies: extremity pain, extremity swelling, muscle cramps or muscle weakness [facility] Medical History (Updated 01/08/24 @ 09:28 by Ana Gracia NP) Osteoarthritis ?M19.90 - Unspecified osteoarthritis, unspecified site (ICD-10) Hearing deficit ?H91.90 - Unspecified hearing loss, unspecified ear (ICD-10) Surgical History History of bunionectomy of left great toe ?Z98.890 - Other specified postprocedural states (ICD-10) History of stapedectomy ?Z90.09 - Acquired absence of other part of head and neck (ICD-10) History of cervical discectomy ?Z98.890 - Other specified postprocedural states (ICD-10) History of hysterectomy ?Z90.710 - Acquired absence of both cervix and uterus (ICD-10) Meds Home Medications and Allergies Home Medications ?Medication ?Instructions ?Recorded ?Confirmed ?Type calcium-vitamin D3-vitamin K 500 1 tab PO DAILY 11/06/22 12/30/23 History mg-100 unit-40 mcg chewable tablet diclofenac sodium 50 mg 50 mg PO BID 11/06/22 12/30/23 History tablet,delayed release glucosamine-chondroitin 250 mg-200 2 tab PO DAILY 11/06/22 12/30/23 History mg tablet (Osteo Bi-Flex) lactobacillus combo no.13 1 1 cap PO DAILY 11/06/22 12/30/23 History billion cell capsule,delayed release (Probiotic Pearls Complete) magnesium 200 mg tablet 400 mg PO DAILY 11/06/22 12/30/23 History meclizine 25 mg chewable tablet 25 mg PO DAILY 11/06/22 12/30/23 History (Antivert) metoprolol tartrate 50 mg tablet 50 mg PO DAILY 11/06/22 12/30/23 History multivitamin (Daily Multi-Vitamin 1 tab PO DAILY 11/06/22 12/30/23 History tablet) omega 5-pdx-rti-fish oil 1,200 mg 1 cap PO DAILY 11/06/22 12/30/23 History (144 mg-216 mg) capsule (Fish Oil) prasterone (dhea) 50 mg capsule 50 mg PO DAILY 11/06/22 12/30/23 History (DHEA) vitamin B complex (B 1 tab PO DAILY 11/06/22 12/30/23 History Complex-Vitamin B12 tablet) zolmitriptan 5 mg tablet (Zomig) See Rx Instructions PO .COMPLEX 11/06/22 12/30/23 History atenolol 50 mg tablet 50 mg PO DAILY 09/09/23 12/30/23 History hydrocodone 5 mg-acetaminophen 325 1 tab PO Q8H PRN pain 3 days #10 09/09/23 12/30/23 Rx mg tablet tabs naloxone 4 mg/actuation nasal spray 1 spray intranasal Q3M PRN opioid 09/09/23 12/30/23 History overdose ondansetron 4 mg disintegrating 4 mg PO Q8H PRN nausea and 09/09/23 12/30/23 Rx tablet vomiting 4 days #12 tabs tamsulosin 0.4 mg capsule (Flomax) 0.4 mg PO DAILY #7 caps 09/09/23 12/30/23 Rx tramadol 50 mg tablet 50 mg PO BID PRN pain #60 tabs 12/03/23 12/30/23 Rx Allergies Allergy/AdvReac Type Severity Reaction Status Date / Time No Known Drug Allergies Allergy Verified 12/30/23 06:50 Exam Constitutional Documenting provider has reviewed patient's vital signs: yes Common normals: no apparent distress, oriented x3, healthy appearing, alert and well nourished General appearance: cooperative HENMT Common normals: normocephalic, hearing grossly normal bilaterally and moist oral mucous membranes Head and scalp: normocephalic Eye Common normals: PERRL Pupil: PERRL Neck & C-Spine Common normals: full ROM General: normal visual inspection Chest Common normals: inspection of chest normal Respiratory Common normals: normal respiratory effort, no retractions and no use of accessory muscles Back & Pelvis Lumbar spine/lower back: ROM limited, pain with ROM and straight leg raise negative bilaterally; no lumbar spinal tenderness, no paraspinal muscle tenderness and no paraspinal muscle spasm Sacroiliac joints: SI joints normal Other: significant axial low back pain, facet tenderness over L2-4 facet joints no radiculopathy on exam, strength 5/5 in BLE, sensation intact BLE bilateral SIJ exam negative florence(patricks), gaenslens, thigh thrust, compression test Back image (female): 1. pain per pt Extremity Common normals: normal to inspection and full ROM Neuro Common normals: oriented x3, CN's II-XII intact bilaterally, moves all extremities, no focal motor deficits, no sensory deficits noted, deep tendon reflexes 2+ bilaterally and gait normal Sensorium/orientation: alert Motor exam: strength 5/5 throughout and no movement abnormalities noted Psych Common normals: mental status grossly normal, thought process normal, cooperative, affect normal, speech normal and activity/motor behavior normal Speech: normal speech Thought process: normal thought process Results Additional Findings Additional findings: If on a controlled substance or opioids, I have checked an [place] report on this patient and there are no aberrancies noted in the prescribing history.??If on a controlled substance or opioid a drug screen was completed and reviewed within the last year, and if there has not been a drug screen completed we ordered one today to monitor higher risk, state monitored pain medication use. As part of providing excellent, safe, comprehensive care, the following was completed at our patient's visit: 1. A medication reconciliation and review to ensure accurate knowledge of current/active medications, including asking our patients to inform us about any [id number] medications or herbal remedies/nutritional supplements/alternative remedies. 2. A review to specifically ensure our patients have had annual screening for screening for depression, screening for tobacco use, and screening for unhealthy alcohol use. For concerning screenings had a discussion with the patient, provided patient education, and recommended follow-up with primary care provider when appropriate. If patient noted with a risk of falling, they received education on strength, gait, and balance training to prevent future risk of falling. Assessment and Plan Assessment and Plan (1) Lumbar spondylosis: Assessment and Plan: The patient has had over 3 months of moderate to severe low back pain with functional impairment and inadequate response to conservative care including NSAIDS (unless there are contraindication such as concurrent blood thinners), multiple oral or topical pain medications, and home exercise program/physical therapy.? Patient has completed >6 weeks of guided home exercise program and/or formal physical therapy program without relief of their symptoms.? I have reviewed the imaging of the lumbar spine and no red flags were identified.? We discussed the risks and benefits of the procedure with the patient, and we are NOT planning on using sedation as outlined in the guidelines from Medicare unless there is a documented reason that sedation would be strongly recommended.?? The procedure will be completed with fluoroscopic guidance.? (2) Osteoarthritis: (3) Chronic prescription opiate use: (4) Cervical spondylosis: (5) Lumbar degenerative disc disease: Plan patient would like to trial bilateral L3-4 L4-5 MBB X2 working towards RFA for chronic bilateral low back pain secondary to lumbar spondylosis/lumbar facet arthropathy continue current medications continue aquatherapy as tolerated f/u after each injection
--- OUTSIDE RECORDS SUMMARY | 2024-01-08 09:25 | XMS_ITS | CCD ---
Author Organization [facility] Care Team Providers Care Adult Neuropsychologist Name Role Phone GISELA, DR SAVANNA Willis [...] ., AJ Admitting Jessy vailable LAKSHMIPATHY ., NARENDLOWELLATH Consulting Jessy vailable LAKSHMIPATHY ., AJ Attending Jessy vailable GISELA, DR SAVANNA Willis Primary Care Unavailable HIGGINS, DR SAVANNA Willis Primary Care Unavailable HIGGINS, DR SAVANNA Willis Attending Unavailable SALTSBURG, DR MINE Barriga Consulting Unavailable GISELA, DR SAVNANA Willis Admitting Unavailable HIGGINS, DR SAVANNA Willis Consulting Unavailable HIGGINS, DR SAVANNA Willis Attending Unavailable HIGGINS, DR SAVANNA Willis Admitting Unavailable BIRGIT, DR PB Mitchell Consulting Unavailable HIGGINS, DR SAAVNNA Willis Primary Care Unavailable GISELA, DR SAVANNA Willis Consulting Unavailable GISELA, DR SAVANNA Willis Primary Care Unavailable LAKSHMIPATHY ., NARPAULINA Attending Jessy vailable LAKSHMIPATHY ., NARENDRANATH Admitting [...] Mitchell Attending Unavailable Roman GUAN Attending Unavailable REBECA ROSENBERG Attending Unavailable Medications Current Medications Medication Drug [...] take 1 tablet by mouth once daily [place]-3 Fish Oil 1 tab, Oral, Daily, Refill(s) [...] 30 cap(s), Refills(s) 0, Pharmacy: [facility]/pharmacy #[id number], 56.1, kg, 09/17/23 8:03:00 EDT, Weight Dosing [...] Status: Ordered take 1 tablet by christian four times daily at mealtime as needed [...] CT Reporton 10-15-2023 RAD - CT Report [id number]# 1.00TIFF Najma [facility] Ambulatory Visit Summaryon 0 10-13-2023 Ambulatory [...] Vitamins oral capsule) omega-3 polyunsaturated fatty acids ([place]-3 Fish Oil) tamsulosin (Flomax 0.4 mg Cap) [...] [address] , [place] [address] [phone] Medications What How Much When Instructions Unchanged [...] or concerns Unchanged omega-3 polyunsaturated fatty acids ([place]-3 Fish Oil) 1 tab By Mouth Every [...] groin. (more content not included)... Normal [facility] Patient Educationon 10-13-19 Patient Education Urology Kidney [...] these instructions at home: Medicines ? Take jmij-qhr-mmnlvho and prescription medicines only as told by [...] provider. Document Revised: 12/31/2021 Document Reviewed: 12/31/2021 [employer] Patient Education ? 2022 [employer]. Map Decisions [facility] Urology Office/Clinic Noteon 10-13-2023 Urology Office/Clinic Note [...] pass, required surgery 2 years ago in [place]. Was told at this time that she had a puncture in her kidney that would heal. Follow-up With When Contact Information SHANNON SALGUERO, Roman Mitchell, L [facility] [address], [place] [address]- [phone] Additional Instructions: f/u pending CT scan Patient Education Kidney Stones, Jivp-bx-Hyvc Anabella Webber, personally scribed for Dr. Guan [...] Vitamins oral capsule, 1 cap(s), Oral, Daily [place]-3 Fish Oil, 1 tab, Oral, Daily Osteo [...] virus vaccine, inactivated 02/14/2023 Recorded SARS-CoV-2 (COVID-19) [id number].[id number] 03/12/2022 Recorded 2023-10-13: TPV80 influenza virus vaccine, inactivated 02/28/2022 Recorded SARS-CoV-2 (COVID-19) mRNA-1273 vaccine 11/09/2021 Recorded 2023-10-13: TPV80 SARS-CoV-2 (COVID-19) mRNA-12 (more content not included)... Normal [facility] Comment on above: Result Comment: Elec tronically Signed By: SHANNON SALGUERO, Roman Mitchell\.br\Date and Time Signed: 10/13/23 13:41 EDT\.br\Electronically Co-Signed By: Anabella Villalta\.br\Date and Time Co-Signed: 10/13/23 13:39 EDT RAD - MISCon 10-12-2023 [facility] [id number] #1.00TIFF Normal [facility] ED Note-Physicianon 09-18-19 ED Note-Physician [id number] 8#1.00TIFF Normal [facility] Formson 09-18-2023 Forms [id number] #1.00TIFF Normal [facility] RAD - CT Reporton 09-18-2023 RAD - CT Report [id number] 8#1.00TIFF Normal [facility] - MISC [id number] 1#1.00TIFF Normal [facility] RAD - MIS [id number]# 1.00TIFF Normal [facility] - MIS [id number] 9#1.00TIFF Normal [facility] Ambulatory Visit Summaryon 0 09-17-2023 Ambulatory Visit Summary ALPA LEABUNNY Fatima :1940 Visit Date:09/17/2023 Ambulatory Visit Instructions Your [...] Vitamins oral capsule) omega-3 polyunsaturated fatty acids ([place]-3 Fish Oil) zolmitriptan (Zomig 5 mg oral [...] SALGUERO, Roman Mitchell Where: [facility] Patient Educationon 09-17-19 Patient Education Urology [...] these instructions at home: Medicines ? Take mema-syj-gejhpci and prescription medicines only as told by [...] recommendations from (more content not included)... Normal [facility] Urology Office/Clinic Noteon 09-17-2023 Urology Office/Clinic Note Chief Complaint New pt HPI Staff 1 week follow up w/[facility]-09/15/23-[facility] Pt was seen at [facility] on 09/09/23 due to abdominal pain [...] yo female new pt following up to [facility] ED visit 09/09/23 due to intermittent [...] pass, required surgery 2 years ago in [place]. Was told at this time that [...] [address] ct[address] SEs discussed. Rx sent to [facility] [place]. -High fluid intake. -Pt to call or go to the ER if he were to experience fever, shaking, chills, uncontrolled nausea, vomiting, or pain. Follow-up With When Contact Information SHANNON SALGUERO, Roman Mitchell, URL [facility] [address] [place] [address]- Additional Instructions: 3 weeks with [facility] Patient [...] Vitamins oral capsule, 1 cap(s), Oral, Daily [place]-3 Fish Oil, 1 tab, Oral, Daily Osteo [...] Lab Results (more content not included)... Normal [facility] Comment on above: Result Comment: Elec tronically Signed By: Roman GUAN MD\.br\Date and Time Signed: 09/17/23 08:41 EDT\.br\Electronically Co-Signed By: Cynthia Jones\.br\Date and Time Co-Signed: 09/17/23 08:39 EDT Basophils Auto (Bld) [#/Vol] on 09-09-2023 Basophils (Bld) [#/Vol] 0.0 10 3/uL 0.0-0.1 [facility] Basophils/100 WBC Auto (Bld) on 09-09-2023 Basophils/100 WBC (Bld) 0.4 % 0.2-2.0 [facility] Casts typing in urine sedime nt by light microscopyon 09-09-2023 Casts LM Nom (Urine sed) NONE SEEN #/LPF NONE SEEN [facility] Eosinophils/100 WBC Auto (Bl d)on 09-09-2023 Eosinophils/100 WBC (Bld) 1.1 % 0.9-7.0 [facility] Erythrocyte distribution wid th Auto (RBC) [Ratio]on 09-09-2023 Erythrocyte distribution width (RBC) [Ratio] 13.0 % 11.0-15.0 [facility] Estimated glomerular filtrat ion rate (GFR) non- Americanon 09-09-2023 GFR/1.73 sq M.predicted among non-blacks MDRD (S/P/Bld) [Vol rate/Area] 52 mL/min/{1.73_m2} Low >=60 [facility] Globulin Calc (S) [Mass/Vol] on 09-09-2023 Globulin (S) [Mass/Vol] 3.5 g/dL [facility] Hematocrit Auto (Bld) [Volum e fraction]on 09-09-2023 Hematocrit (Bld) [Volume fraction] 39.0 % 36.0-48.0 [facility] Hemoglobin [Mass/volume] in Bloodon 09-09-2023 Hemoglobin (Bld) [Mass/Vol] 12.6 g/dL 12.0-16.0 [facility] Laboratory - Chemistry and C hemistry - challengeon 09-09-2023 Albumin [Mass/Vol] 3.6 g/dL 3.4-5.0 [facility] ALP [Catalytic activity/Vol] 74 U/L 46-116 [facility] ALT [Catalytic activity/Vol] 30 U/L 14-59 [facility] AST [Catalytic activity/Vol] 24 U/L 15-37 [facility] Bilirubin [Mass/Vol] 0.5 mg/dL 0.2-1.0 [facility] Calcium [Mass/Vol] 9.8 mg/dL 8.5-10.1 [facility] Chloride [Moles/Vol] 102 mmol/L 98-107 [facility] CO2 [Moles/Vol] 31.2 mmol/L 21.0-32.0 [facility] Creatinine [Mass/Vol] 1.01 mg/dL 0.55-1.02 [facility] GFR/1.73 sq M.predicted MDRD (S/P/Bld) [Vol rate/Area] mL/min/{1.73_m2} >=60 [facility] Glucose [Mass/Vol] 100 mg/dL 74-106 [facility] Lipase [Catalytic activity/Vol] 25.0 U/L 16.0-77.0 [facility] Potassium [Moles/Vol] 3.9 mmol/L 3.5-5.1 [facility] Protein [Mass/Vol] 7.1 g/dL 6.4-8.2 [facility] Sodium [Moles/Vol] 140 mmol/L 136-145 [facility] Urea nitrogen [Mass/Vol] 22.0 mg/dL High 7.0-18.0 [facility] Urea nitrogen/Creatinine [Mass ratio] 21.8 mg/mg [facility] Bilirubin Ql (U) Negative NEGATIVE [facility] Glucose (U) [Mass/Vol] Negative NEGATIVE [facility] Ketones Ql (U) Negative NEGATIVE [facility] pH (U) 6.0 [pH] 5.0-9.0 [facility] Specific gravity (U) [Rel density] 1.020 1.005-1.025 [facility] Urobilinogen Qn (U) 0.2 {Sosa'U}/dL 0.2-1.0 [facility] Laboratory - Hematology and Cell countson 09-09-2023 Immature granulocytes/100 WBC (Bld) 0.3 % 0.0-0.5 [facility] Laboratory - Specimen inform ationon 09-09-2023 Appearance (U) CLEAR CLEAR [facility] Color (U) DK. YELLOW YELLOW [facility] Laboratory - Urinalysison Amorphous sediment LM Ql (Urine sed) RARE [facility] Leukocyte esterase Test strip Ql (U) TRACE Abnormal NEGATIVE [facility] Nitrite Ql (U) Negative NEGATIVE [facility] Protein Ql (U) Negative NEG/TRACE [facility] Leukocytes [#/volume] correc bill for nucleated erythrocytes in Blood by Automated counon 09-09-2023 WBC corrected for nucl RBC Auto (Bld) [#/Vol] 10.7 10 3/uL 4.0-11.0 [facility] Lymphocytes Auto (Bld) [#/Vo l]on 09-09-2023 Lymphocytes (Bld) [#/Vol] 1.5 10 3/uL 1.2-3.8 [facility] Lymphocytes/100 WBC Auto (Bl d)on 09-09-2023 Lymphocytes/100 WBC (Bld) 13.7 % Low 20.5-60.0 [facility] MCH Auto (RBC) [Entitic mass ]on 09-09-2023 MCH (RBC) [Entitic mass] 31.2 pg 26.7-34.0 [facility] MCHC Auto (RBC) [Mass/Vol]on 09-09-2023 MCHC (RBC) [Mass/Vol] 32.3 g/dL 29.9-35.2 [facility] MCV Auto (RBC) [Entitic vol] on 09-09-2023 MCV (RBC) [Entitic vol] 96.5 fL 81.0-99.0 [facility] Monocytes Auto (Bld) [#/Vol] on 09-09-2023 Monocytes (Bld) [#/Vol] 1.0 10 3/uL High 0.3-0.8 [facility] Monocytes/100 WBC Auto (Bld) on 09-09-2023 Monocytes/100 WBC (Bld) 9.5 % 1.7-12.0 [facility] Mucus LM Ql (Urine sed)on Mucus Ql (Urine sed) NONE SEEN NONE SEEN [facility] Neutrophils Auto (Bld) [#/Vo l]on 09-09-2023 Neutrophils (Bld) [#/Vol] 8.0 10 3/uL High 1.4-6.5 [facility] Neutrophils/100 WBC Auto (Bl d)on 09-09-2023 Neutrophils/100 WBC (Bld) 75.0 % 43.0-75.0 [facility] No Panel Informationon 09-08 Eosinophils # (Auto) 0.1 10 3/uL 0.0-0.7 [facility] Immature Granulocyte # (Auto) 0.03 10 3/uL 0.00-0.03 [facility] Urine Bacteria NONE SEEN #/HPF NONE SEEN [facility] Urine Culture Reflexed NO [facility] Urine Microscopic Review YES [facility] Urine Occult Blood LARGE Abnormal NEGATIVE [facility] Urine Other Crystals Seen #/HPF Abnormal None Seen [facility] Urine RBC 10-20 #/HPF Abnormal 0-2 [facility] Urine Squamous Epithelial Cells NONE SEEN #/LPF NONE/RARE [facility] Urine Uric Acid Crystals FEW [facility] Urine WBC 2-5 #/HPF Abnormal NONE SEEN [facility] Platelet mean volume Auto (B ld) [Entitic vol]on 09-09-2023 Platelet mean volume (Bld) [Entitic vol] 9.5 fL 9.5-13.5 [facility] Platelets Auto (Bld) [#/Vol] on 09-09-2023 Platelets (Bld) [#/Vol] 240 10 3/uL 150-450 [facility] RBC Auto (Bld) [#/Vol]on RBC (Bld) [#/Vol] 4.04 10 6/uL Low 4.20-5.40 [facility] Serum or plasma albumin/glob ulin mass ratioon 09-09-2023 Albumin/Globulin [Mass ratio] 1.0 {ratio} [facility] Serum or plasma anion gap de terminationon 09-09-2023 Anion gap [Moles/Vol] 10.7 mmol/L [facility] XR RIBS LT PA Stephen XR [...] by: PB GENAO Date: 2022-10-02 11:51 Normal [facility] XR CSPINE 2_3 VIEWSon 2022 XR CSPINE [...] ISAEL GRIFFIN Date: 2022-09-05 15:58 Normal [facility] CBC AUTO DIFFon 12-31-2021 BASO # 0.0 103/ul Normal 0.0-0.1 [facility] Comment on above: Performed By: #### C BC #### [facility] [address] [place] [place], [place] [address] Dr. Radha Land Basophils/100 WBC (Bld) 0.2 % Normal 0.2-2.0 [facility] Comment on above: Performed By: #### C BC #### [facility] [address] [place] [address] Dr. Radha Land EO # 0.2 103/ul Normal 0.0-0.7 [facility] Comment on above: Performed By: #### C BC #### [facility] [address] [place] [address] Dr. Radha Land Eosinophils/100 WBC (Bld) 1.7 % Normal 0.9-7.0 [facility] Comment on above: Performed By: #### C BC #### [facility] [address] [place] [address] Dr. Radha Land Erythrocyte distribution width (RBC) [Ratio] 13.4 % Normal 11.0-15.0 [facility] Comment on above: Performed By: #### C BC #### [facility] [address] [place] [address] Dr. Radha Land Hematocrit (Bld) [Volume fraction] 40.9 % Normal 36.0-48.0 [facility] Comment on above: Performed By: #### C BC #### [facility] [address] [place] [address] Dr. Radha Land Hemoglobin (Bld) [Mass/Vol] 13.1 g/dL Normal 12.0-16.0 [facility] Comment on above: Performed By: #### C BC #### [facility] [address] [place] [address] Dr. Radha Land IG # 0.05 10e3/ul Critically high 0.00-0.[address] [facility] Comment on above: Performed By: #### C BC #### [facility] [address] [place] [address] Dr. Radha Land IG % 0.4 % Normal 0.0-0.5 [facility] Comment on above: Performed By: #### C BC #### [facility] [address] [place] [address] Dr. Radha Land LYMPH # 1.4 103/ul Normal 1.2-3.8 [facility] Comment on above: Performed By: #### C BC #### [facility] [address] [place] [address] Dr. Radha Land Lymphocytes/100 WBC (Bld) 10.8 % Critically low 20.5-60.0 [facility] Comment on above: Performed By: #### C BC #### [facility] [address] [place] [address] Dr. Radha Land MANUAL DIFF REQ NO Normal [facility] Comment on above: Performed By: #### C BC #### [facility] [address] [place] [address] Dr. Radha Land MCH (RBC) [Entitic mass] 31.5 pg Normal 26.7-34.0 [facility] Comment on above: Performed By: #### C BC #### [facility] [address] [place] [address] Dr. Radha Land MCHC (RBC) [Mass/Vol] 32.0 g/dL Normal 29.9-35.2 [facility] Comment on above: Performed By: #### C BC #### [facility] [address] [place] [address] Dr. Radha Land MCV (RBC) [Entitic vol] 98.3 fL Normal 81.0-99.0 [facility] Comment on above: Performed By: #### C BC #### [facility] [address] [place] [address] Dr. Radha Land MONO # 1.3 103/ul Critically high 0.3-0.8 [facility] Comment on above: Performed By: #### C BC #### [facility] [address] [place] [address] Dr. Radha Land Monocytes/100 WBC (Bld) 9.7 % Normal 1.7-12.0 [facility] Comment on above: Performed By: #### C BC #### [facility] [address] [place] [address] Dr. Radha Land NEUT # 10.2 103/ul Critically high 1.4-6.5 [facility] Comment on above: Performed By: #### C BC #### [facility] [address] [place] [address] Dr. Radha Land Neutrophils/100 WBC (Bld) 77.2 % Critically high 43.0-75.0 [facility] Comment on above: Performed By: #### C BC #### [facility] [address] [place] [address] [address] Radha Land Platelet mean volume (Bld) [Entitic vol] 9.7 fL Normal 9.5-13.5 [facility] Comment on above: Performed By: #### C BC #### [facility] [address] [place] [address] [address] Radha Land PLT 235 103/ul Normal 150-450 [facility] Comment on above: Performed By: #### C BC #### [facility] [address] [place] [address] [address] Radha Land RBC 4.16 106/ul Critically low 4.20-5.40 [facility] Comment on above: Performed By: #### C BC #### [facility] [address] [place] [address] [address] Radha Land WBC 13.2 103/ul Critically high 4.0-11.0 [facility] Comment on above: Performed By: #### C BC #### [facility] [address] [place] [address] Dr. Radha Land SED RATE WESTERGRENon 2021 SED RATE 35 mm/hr Critically high <=30 [facility] Comment on above: Performed By: #### S EDR #### [facility] [address] [place] [address] Dr. Radha Land CBC AUTO DIFFon 11-07-2021 BASO # 0.0 103/ul Normal 0.0-0.1 [facility] Comment on above: Performed By: #### C BC ####[facility] [address] [place] [address]Dr. Radha Land Basophils/100 WBC (Bld) 0.3 % Normal 0.2-2.0 [facility] Comment on above: Performed By: #### C BC ####[facility] [address] [address]Dr. Radha Land EO # 0.2 103/ul Normal 0.0-0.7 [facility] Comment on above: Performed By: #### C BC ####[facility] [address] [place] [address]Dr. Radha Land Eosinophils/100 WBC (Bld) 3.3 % Normal 0.9-7.0 [facility] Comment on above: Performed By: #### C BC ####[facility] [address] [place], [place] [address]Dr. Radha Land Erythrocyte distribution width (RBC) [Ratio] 13.2 % Normal 11.0-15.0 [facility] Comment on above: Performed By: #### C BC ####[facility] [address] [place], [place] [address]Dr. Radha Land Hematocrit (Bld) [Volume fraction] 41.9 % Normal 36.0-48.0 [facility] Comment on above: Performed By: #### C BC ####[facility] [address] [place], [place] [address]Dr. Radha Land Hemoglobin (Bld) [Mass/Vol] 13.4 g/dL Normal 12.0-16.0 [facility] Comment on above: Performed By: #### C BC ####[facility] [address] [place], [place] [address]Dr. Radha Land IG # 0.01 10e3/ul Normal 0.00-0.03 [facility] Comment on above: Performed By: #### C BC ####[facility] [address] [place], [place] [address]Dr. Radha Land IG % 0.2 % Normal 0.0-0.5 [facility] Comment on above: Performed By: #### C BC ####[facility] [address] [place], [place] [address]DrHernandez Radha Land LYMPH # 1.6 103/ul Normal 1.2-3.8 [facility] Comment on above: Performed By: #### C BC ####[facility] [address] [place], [place] [address]Dr. Radha Land Lymphocytes/100 WBC (Bld) 27.5 % Normal 20.5-60.0 [facility] Comment on above: Performed By: #### C BC ####[facility] [address] [place] [address]Dr. Radha Land MANUAL DIFF REQ NO Normal [facility] Comment on above: Performed By: #### C BC ####[facility] [address] [address]Dr. Radha Land MCH (RBC) [Entitic mass] 31.2 pg Normal 26.7-34.0 [facility] Comment on above: Performed By: #### C BC ####[facility] [address] [place], [place] [address]Dr. Radha Lnad MCHC (RBC) [Mass/Vol] 32.0 g/dL Normal 29.9-35.2 [facility] Comment on above: Performed By: #### C BC ####[facility] [address] [place], [place] [address]Dr. Radha Land MCV (RBC) [Entitic vol] 97.7 fL Normal 81.0-99.0 [facility] Comment on above: Performed By: #### C BC ####[facility] [address] [place], [place] [address]Dr. Radha Land MONO # 0.7 103/ul Normal 0.3-0.8 [facility] Comment on above: Performed By: #### C BC ####[facility] [address] [place], [place] [address]Dr. Radha Land Monocytes/100 WBC (Bld) 12.4 % Critically high 1.7-12.0 [facility] Comment on above: Performed By: #### C BC ####[facility] [address] [place], [place] [address]DrHernandez Land NEUT # 3.2 103/ul Normal 1.4-6.5 [facility] Comment on above: Performed By: #### C BC ####[facility] [address] [place], [place] [address]Dr. Radha Land Neutrophils/100 WBC (Bld) 56.3 % Normal 43.0-75.0 [facility] Comment on above: Performed By: #### C BC ####[facility] [address] [address]Dr. Radha Land Platelet mean volume (Bld) [Entitic vol] 9.4 fL Critically low 9.5-13.5 [facility] Comment on above: Performed By: #### C BC ####[facility] [address] [address]Dr. Jacquelyncharlotte Emery PLT 226 103/ul Normal 150-450 [facility] Comment on above: Performed By: #### C BC ####[facility] [address] [address]Dr. Jacquelyncharlotte Emery RBC 4.29 106/ul Normal 4.20-5.40 [facility] Comment on above: Performed By: #### C BC ####[facility] [address] [address]Dr. Radha Emery WBC 5.7 103/ul Normal 4.0-11.0 [facility] Comment on above: Performed By: #### C BC ####[facility] [address] [address]Dr. Jacquelyncharlotte Emery LIPID PROFILEon 11-07-2021 CHOL-HDL RATIO NORM SEE BELOW Normal [facility] Comment on above: Result Comment: 3.3 - 4.4 LOW RISK 4.4 - 7.1 AVERAGE RISK 7.1 - 11.0 MODERATE RISK >11.0 HIGH RISK Performed By: #### L IPID, CMP #### [facility] [address] [address] [address] Radha Land Cholesterol [Mass/Vol] 257 mg/dL Critically high <=200 [facility] Comment on above: Performed By: #### L IPID, CMP #### [facility] [address] [address] [address] Radha Land Cholesterol in HDL [Mass/Vol] 76 mg/dL Critically high 40-60 [facility] Comment on above: Performed By: #### L IPID, CMP #### [facility] [address] [address] [address] Radha Land Cholesterol in LDL [Mass/Vol] 163.8 mg/dL Normal [facility] Comment on above: Performed By: #### L IPID, CMP #### [facility] [address] [address] [address] Radha Land Cholesterol.total/Cho lesterol in HDL [Mass ratio] 3.4 {ratio} Normal [facility] Comment on above: Performed By: #### L IPID, CMP #### [facility] [address] [address] [address] Radha Land HDL NORMAL > or = 60 mg/dl - LOW CARDIOVASCULAR RISK <40 mg/dl - HIGH CARDIOVASCULAR RISK Normal [facility] Comment on above: Performed By: #### L IPID, CMP #### [facility] [address] [place] [address] Dr. Radha Land LDL CALC NORMAL SEE BELOW Normal [facility] Comment on above: Result Comment: <100 mg/dl OPTIMAL 100 - 129 mg/dl NEAR OR ABOVE OPTIMAL 130 - 159 mg/dl BORDERLINE HIGH 160 - 189 mg/dl HIGH >190 mg/dl VERY HIGH Performed By: #### L IPID, CMP #### [facility] Laboratory [address] [place] [address] Dr. Radha Land Triglyceride [Mass/Vol] 86 mg/dL Normal <=150 [facility] Comment on above: Performed By: #### L IPID, CMP #### [facility] [address] [place] [address] Dr. Radha Land VLDL CALC 17.2 mg/dL Normal [facility] Comment on above: Performed By: #### L IPID, CMP #### [facility] [address] [place] [address] Dr. Radha Land MG MAMM SCREEN 3D GIANCARLO CADon 11-07-2021 MG MAMM SCREEN 3D GIANCARLO CAD Patient: EDUARDO LEA Exam Date: 11/07/2021 : 1940 Gender:F Ordering : DR SAVANNA HIGGINS M.D. Admission #: [id number] Family : Order #: [id number] CLICK HERE TO VIEW EXAM RADIOLOGY REPORT [...] ovarian cancer at age 47. LOCATION: [facility] BREAST COMPOSITION: Extremely dense, which [...] Arriaga MD on 11/07/2021 at 11:21 Normal [facility] PROF 14(COMP METB)on 022 Albumin [Mass/Vol] 3.6 g/dL Normal 3.4-5.0 [facility] Comment on above: Performed By: #### L IPID, CMP #### [facility] [address] [place] [address] Dr. Radha Land Albumin/Globulin [Mass ratio] 0.9 {ratio} Normal [facility] Comment on above: Performed By: #### L IPID, CMP #### [facility] [address] [address] [address] Radha Land ALP [Catalytic activity/Vol] 79 U/L Normal 46-116 [facility] Comment on above: Performed By: #### L IPID, CMP #### [facility] [address] [place] [address] Dr. Radha Land ALT [Catalytic activity/Vol] 32 U/L Normal 14-59 [facility] Comment on above: Performed By: #### L IPID, CMP #### [facility] [address] [address] [address] Radha Land Anion gap [Moles/Vol] 6.1 mmol/L Normal [facility] Comment on above: Performed By: #### L IPID, CMP #### [facility] [address] [address] [address] Radha Land AST [Catalytic activity/Vol] 28 U/L Normal 15-37 [facility] Comment on above: Performed By: #### L IPID, CMP #### [facility] [address] [place] [address] Dr. Radha Land Bilirubin [Mass/Vol] 0.6 mg/dL Normal 0.2-1.0 [facility] Comment on above: Performed By: #### L IPID, CMP #### [facility] [address] [place] [address] Dr. Radha Land Calcium [Mass/Vol] 9.1 mg/dL Normal 8.5-10.1 [facility] Comment on above: Performed By: #### L IPID, CMP #### [facility] [address] [place] [address] Dr. Radha Land Chloride [Moles/Vol] 104 mmol/L Normal 98-107 [facility] Comment on above: Performed By: #### L IPID, CMP #### [facility] [address] [place] [address] Dr. Radha Land CO2 [Moles/Vol] 31.0 mmol/L Normal 21.0-32.0 [facility] Comment on above: Performed By: #### L IPID, CMP #### [facility] [address] [place] [address] Dr. Radha Land Creatinine [Mass/Vol] 0.86 mg/dL Normal 0.55-1.02 [facility] Comment on above: Performed By: #### L IPID, CMP #### [facility] [address] [place] [address] Dr. Radha Land EGFR-AF CAMBODIAN >60 Normal >=60 [facility] Comment on above: Performed By: #### L IPID, CMP #### [facility] [address] [address] [address] Radha Land EGFR-NON AF CAMBODIAN >60 Normal >=60 [facility] Comment on above: Performed By: #### L IPID, CMP #### [facility] [address] [address] [address] Radha Land Globulin (S) [Mass/Vol] 4.1 g/dL Normal [facility] Comment on above: Performed By: #### L IPID, CMP #### [facility] [address] [address] [address] Radha Land Glucose [Mass/Vol] 89 mg/dL Normal 74-106 [facility] Comment on above: Performed By: #### L IPID, CMP #### [facility] [address] [place] [address] Dr. Radha Land Potassium [Moles/Vol] 4.1 mmol/L Normal 3.5-5.1 [facility] Comment on above: Performed By: #### L IPID, CMP #### [facility] [address] [place] [address] Dr. Radha Land Protein [Mass/Vol] 7.7 g/dL Normal 6.4-8.2 [facility] Comment on above: Performed By: #### L IPID, CMP #### [facility] [address] [place] [address] Dr. Radha Land Sodium [Moles/Vol] 137 mmol/L Normal 136-145 [facility] Comment on above: Performed By: #### L IPID, CMP #### [facility] [address] [place] [address] Dr. Radha Land Urea nitrogen [Mass/Vol] 12.0 mg/dL Normal 7.0-18.0 [facility] Comment on above: Performed By: #### L IPID, CMP #### [facility] [address] [place] [address] Dr. Radha Land Urea nitrogen/Creatinine [Mass ratio] 14.0 mg/mg Normal [facility] Comment on above: Performed By: #### L IPID, CMP #### [facility] [address] [address] [address] Radha Land Vital Signs Date Time Vital Sign Value Performing Clinician Facility 11-18-2023 10:53-0400 Body height 165.1 cm [facility] 11-18-2023 10:53-0400 Body mass index (BMI) [Ratio] 20.5 kg/m2 [facility] 11-18-2023 10:53-0400 Body weight 55.79 kg [facility] 11-18-2023 10:53-0400 Diastolic blood pressure 55 mm[Hg] [facility] 11-18-2023 10:53-0400 Heart rate 65 /min [facility] 11-18-2023 10:53-0400 Systolic blood pressure 132 mm[Hg] [facility] 11-06-2023 11:11-0400 Body height 165.1 cm [facility] 11-06-2023 11:11-0400 Body mass index (BMI) [Ratio] 20.2 kg/m2 [facility] 11-06-2023 11:11-0400 Body weight 55.33 kg [facility] 11-06-2023 11:11-0400 Diastolic blood pressure 67 mm[Hg] [facility] 11-06-2023 11:11-0400 Heart rate 61 /min [facility] 11-06-2023 11:11-0400 Systolic blood pressure 124 mm[Hg] [facility] 10-13-2023 12:31-0400 Blood Pressure Location Roman GUAN [facility] 10-13-2023 12:31-0400 Diastolic blood pressure 78 mm[Hg] oRman GUAN [facility] 10-13-2023 12:31-0400 Heart rate 80 /min Roman GUAN [facility] 10-13-2023 12:31-0400 Respiratory rate 16 /min Roman GUAN [facility] 10-13-2023 12:31-0400 Systolic blood pressure 134 mm[Hg] Roman GUAN [facility] 09-30-2023 14:31-0400 Body height 165.1 cm [facility] 09-30-2023 14:31-0400 Body mass index (BMI) [Ratio] 20.5 kg/m2 [facility] 09-30-2023 14:31-0400 Body weight 55.79 kg [facility] 09-30-2023 14:31-0400 Diastolic blood pressure 62 mm[Hg] [facility] 09-30-2023 14:31-0400 Heart rate 64 /min [facility] 09-30-2023 14:31-0400 Systolic blood pressure 104 mm[Hg] [facility] 09-17-2023 08:00-0400 Blood Pressure Location Roman GUAN [facility] 09-17-2023 08:00-0400 Diastolic blood pressure 80 mm[Hg] Roman GUAN [facility] 09-17-2023 08:00-0400 Heart rate 64 /min Roman GUAN [facility] 09-17-2023 08:00-0400 Systolic blood pressure 132 mm[Hg] Roman GUAN [facility] 01-10-2023 09:45-0400 Body height 165.1 cm Savanna Higgins Other [facility] Other 01-10-2023 09:45-0400 Body mass index (BMI) [Ratio] 20.87 kg/m2 Savanna Higgins Other [facility] Other 01-10-2023 09:45-0400 Body weight 56.88 kg Savanna Higgins Other [facility] Other 01-10-2023 09:45-0400 Diastolic blood pressure 78 mm[Hg] Savanna Higgins Other [facility] Other 01-10-2023 09:45-0400 Systolic blood pressure 142 mm[Hg] Savanna Higgins Other [facility] Other 10-28-2022 08:30-0400 Body height 165.1 cm Savanna Higgins Other [facility] Other 10-28-2022 08:30-0400 Body mass index (BMI) [Ratio] 20.47 kg/m2 Savanna Higgins Other [facility] Other 10-28-2022 08:30-0400 Body weight 55.79 kg Savanna Higgins Other [facility] Other 10-28-2022 08:30-0400 Diastolic blood pressure 47 mm[Hg] Savanna Higgins Other [facility] Other 10-28-2022 08:30-0400 Systolic blood pressure 124 mm[Hg] Savanna Higgins Other [facility] Other Encounters Encounter Date Encounter Type Care Provider Facility Start: 10-15-2024 ambulatory Roman Mota ty:AND[facility] [place] Start: 01-05-2024 End: 01-05-2024 ambulatory REBECA ROSENBERG Not Available Start: 12-09-2023 End: 12-09-[address] [facility] Work Phone: Start: 12-09-2023 End: 12-09-2023 Patient encounter procedure [facility] Physician [facility] Work Phone: Start: 11-18-2023 End: 11-18-[address] [facility] Work Phone: Start: 11-18-2023 End: 11-18-2023 Patient encounter procedure [facility] Physician [facility] Work Phone: Start: 11-10-2023 Patient encounter procedure [facility] Start: 11-06-2023 End: 11-06-2023 Patient encounter procedure [facility] Physician [facility] Work Phone: Start: 10-13-2023 End: 10-13-2023 ambulatory Roman GUAN Facility:[facility] [place] Start: 10-13-2023 End: 10-13-2023 Patient encounter procedure Roman GUAN [facility] Start: 09-30-2023 End: 09-30-[address] [facility] Work Phone: Start: 09-30-2023 End: 09-30-2023 Patient encounter procedure [facility] Physician [facility] Work Phone: Start: 09-17-2023 End: 09-17-2023 ambulatory Roman GUAN Facility:[facility] [place] Start: 09-17-2023 End: 09-17-2023 Patient encounter procedure Roman GUAN [facility] Start: 09-11-2023 ambulatory Roman GUAN Facility :[facility] [place] Start: 09-09-2023 Non-patient / Non-visit [facility] Physician [facility] Work Phone: Start: 08-26-2023 End: 08-26-[address] [facility] Work Phone: Start: 08-26-2023 End: 08-26-2023 Patient encounter procedure [facility] Work Phone: Start: 03-28-2023 End: 03-28-2023 ambulatory Savanna Higgins Other [facility] Other Start: 03-28-2023 Telephone encounter Savanna Gisela [facility] Start: 01-31-2023 End: 01-31-2023 ambulatory Savanna Higgins Other [facility] Other Start: 01-31-2023 Nursing evaluation o f patient and report Savanna Higgins [facility] Start: 01-14-2023 End: 01-14-2023 ambulatory Savanna Higgins Other [facility] Other Start: 01-14-2023 Telephone encounter Savanna Higgins [facility] Start: 01-10-2023 End: 01-10-2023 ambulatory Savanna Higgins Other [facility] Other Start: 01-10-2023 Office outpatient visit 15 minutes Savanna Higgins [facility] Start: 10-28-2022 End: 10-28-2022 ambulatory Savanna Higgins Other [facility] Other Start: 10-28-2022 Patient encounter procedure Savanna Gisela [facility] Start: 10-24-2022 End: 10-24-2022 ambulatory Savanna Higgins Other [facility] Other Start: 10-24-2022 Telephone encounter Savanna Higgins [facility] Start: 10-08-2022 End: 10-08-2022 ambulatory NARENDRANATH LAKSHMIPATHY [...] Adult health examination Savanna Higgins Other [facility] Other Start: 12-31-2021 End: 01-01-[address] [...] Savanna Higgins Other stapidectomy 3 Roman JODI S Comment on above: right ear Plan of Treatment Date Care Activity Detail Author Diagnostic radiograp hy of abdomen [facility] MG Breast - bilatera l Screening [facility] Patient Education Low back pain in adults [facility] Work Phone: [facility] Immunizations Immunization Date Immunization Notes Care Provider Fa juancho 02-14-2023 influenza virus vaccine, unspecified formulation Roman GUAN [facility] 03-12-2022 SARS-CoV-2 (COVID-19 ) [id number] Roman GUAN [facility] Comment on above: Result Comment: 2023: [id number] 02-28-2022 influenza virus vaccine, split virus (incl. purified surface antigen) Savanna Higgins Other [facility] Other 02-28-2022 influenza virus vaccine, unspecified formulation [facility] 11-09-2021 SARS-CoV-2 (COVID-19 ) mRNA-1273 vaccine Roman GUAN [facility] Comment on above: Result Comment: 2023: [id number] 03-08-2021 SARS-CoV-2 (COVID-19 ) mRNA-1273 vaccine Roman GUAN [facility] 02-27-2021 influenza virus vaccine, split virus (incl. purified surface antigen) Savanna Higgins Other [facility] Other 02-27-2021 influenza virus vaccine, unspecified formulation [facility] 06-29-2020 SARS-CoV-2 (COVID-19 ) mRNA-1273 vaccine Roman GUAN [facility] 06-01-2020 SARS-CoV-2 (COVID-19 ) mRNA-1273 vaccine Roman GUAN [facility] 03-14-2020 zoster vaccine recombinant Roman GUAN [facility] 02-16-2020 influenza virus vaccine, split virus (incl. purified surface antigen) Savanna Higgins Other [facility] Other 02-16-2020 influenza virus vaccine, unspecified formulation [facility] 10-25-2019 pneumococcal polysaccharide vaccine, 23 valent Savanna Higgins Other [facility] 01-25-2019 influenza virus vaccine, unspecified formulation Roman GUAN [facility] 03-10-2018 pneumococcal conjuga te vaccine, 13 valent Savanna Higgins Other [facility] 02-14-2018 influenza virus vaccine, unspecified formulation Roman GUAN [facility] 01-08-2017 influenza virus vaccine, split virus (incl. purified surface antigen) Savanna Higgins Other [facility] Other 01-08-2017 influenza virus vaccine, unspecified formulation [facility] 02-06-2016 influenza virus vaccine, split virus (incl. purified surface antigen) Savanna Higgins Other [facility] Other 02-06-2016 influenza virus vaccine, unspecified formulation [facility] 03-24-2015 influenza virus vaccine, split virus (incl. purified surface antigen) Savanna Higgins Other [facility] Other 03-24-2015 influenza virus vaccine, unspecified formulation [facility] 02-26-2013 tetanus and diphther ia toxoids, adsorbed, preservative free, for adult use (5 Lf of tetanus toxoid and 2 Lf of diphtheria toxoid) Savanna Higgins Other [facility] Payers Date Payer Category Payer Medicare [id number] 1960 Medicare [id number] 1940 Unknown [id number] 2.16.84 [id number] 1940 Unknown [id number] 2.16.84 0.1.343485.3.579.2.593 1940 Unknown [id number] 2.16.84 0.1.272051.3.579.2.593 1940 Unknown [id number] 2.16.84 0.1.742952.3.579.2.593 1940 Unknown [id number] 2.16.84 0.1.399220.3.579.2.593 1940 Unknown [id number] 2.16.84 0.1.637726.3.579.2.593 1940 Unknown [id number] 2.16.84 0.1.986178.3.579.2.593 1940 Unknown [id number] 2.16.84 0.1.561553.3.579.2.593 1940 Unknown [id number] 2.16.84 0.1.733860.3.579.2.593 1940 Unknown [id number] 2.16.84 0.1.805186.3.579.2.593 1940 Unknown [id number] 2.16.84 0.1.016037.3.579.2.593 1940 Unknown [id number] 2.16.84 0.1.802534.3.579.2.593 1940 Unknown [id number] 2.16.8 40.1.511623.3.579.2.727 1940 Unknown [id number] 2.16.8 40.1.642077.3.579.2.727 1940 Unknown [id number] 2.16.8 40.1.725632.3.579.2.727 1940 Unknown [id number] 2.16.8 40.1.691762.3.579.2.727 1940 Unknown [id number] 2.16.84 0.1.106269.3.579.2.1259 Private Health Insurance [id number] Social History Date Type Detail Facility Unknown if ever smoked [facility] Other [facility]igned At [facility] Start: 1940 Sex Assigned At [facility] Start: 09-17-2023 End: 10-13-2023 Tobacco smoking status Never smoked tobacco (finding) [facility] Tobacco smoking status Never [facility] Functional Status Date Assessment Result Facility 10-13-2023 Functional Status N/A [facility] 09-17-2023 Functional Status N/A [facility] Clinical Notes 12-19-2021 to 10-13-2023 Note Date & Type Note Facility 10-13-2023 Hospital Discharg e instructions Patient Education 10/13/2023 13:39:08 Kidney Stones, Nihf-oa-Wljd Kidney Stones Kidney stones are rock-like masses [...] Follow these instructions at home: Medicines Take bbvw-txp-bmjskbq and prescription medicines only as told by [...] provider. Document Revised: 12/31/2021 Document Reviewed: 12/31/2021 [employer] Patient Education 2022 [employer]. Follow Up Care 09/17/2023 08:40:02 With:SHANNON SALGUERO, Roman Mitchell, URL Address: [facility] [address] [place] [phone] When: Unknown [facility] 09-17-2023 Hospital Discharg e instructions Patient [...] Follow these instructions at home: Medicines Take jwga-ddm-zhkvmrb and prescription medicines only as told by [...] provider. Document Revised: 08/07/2022 Document Reviewed: 08/07/2022 [employer] Patient Education 2022 [employer]. Follow Up Care 09/11/2023 08:49:49 With:SHANNON SALGUERO, Roman Mitchell, JJ Address: [facility] [address], [place] [address]- When: Unknown [facility] 01-31-2023 Evaluation note Encounter Date Diagnosis Assessment Notes Jan, Seasonal allergic rhinitis, unspecified trigger (ICD-10 - J30.2) [facility] Other 09-01-2023 Evaluation note* Encounter Date Diagnosis Assessment Notes Treatment Notes Treatment Clinical Notes Jan, Piriformis syndrome of left side (ICD-10 - G57.02) Unable to add more tramadol - likely has pain clinic w [facility]. PT order printed. Add steroids. Also gave copies of home exercises. [facility] Other 06-19-2023 Evaluation note* Encounter Date Diagnosis [...] - order handwritten and given to pt [facility] Other 04-27-2023 NoteCONSULTATION CONSULTATION DATE: 09/05/2022 TO: [...] our patients to inform us about any gqsd-vyl-valsfgo medications or herbal remedies/nutritional supplements/alternative remedies. 2. [...] treatment options with their primary care provider.[id number] Note CONSULTATION PROCEDURE DATE: 12/25/2021 PREOPERATIVE DIAGNOSIS: [...] procedurally range of motion exercises are performed.[facility] 12-19-2021 NoteCONSULTATION CONSULTATION DATE: 12/19/2021 [...] where she was seen by the physician educational program assistant in the office and received left [...] the plan of care, to be contacted [facility] Future Appointments Appointment Date:10/13/2023 12:15:00 PM Scheduled Provider:SHANNON SALGUERO, Roman Mitchell Location:[facility] Appointment Type:URO Office Visit [facility] Evaluation noteNo InformationNort Information Assurance Other Evaluation noteNo assessment information available [facility] Work Phone: Evaluation note* Diagnosis Onset Date Resolution Status Right lumbar pain acute [facility] Work Phone: Evaluation note* Diagnosis Onset Date Resolution Status Right lumbar pain acute Medicare annual wellness visit, subsequent acute Nephrolithiasis acute Screening mammogram for breast cancer acute [facility] Work Phone: Evaluation note* Diagnosis Onset Date Resolution Status Right lumbar pain acute Medicare annual wellness visit, subsequent acute Nephrolithiasis acute Screening mammogram for breast cancer acute Laceration of left lower leg without complication acute Lumbar back pain acute [facility] Work Phone: History general Narrative - Reported* Type Description Date Medical History migraine headache Medical History dizziness Medical History tremors Surgical History hysterectomy Surgical History bunionectomy Surgical History stapedectomy Hospitalization History see above [facility] Other Hospital course Narrative No data available for this section [facility] [place] note No data available for this section [facility] Skulpt Summary Purpose Family History No Family History [...] content) DATE CREATED AUTHOR [facility]/18/2022 [facility] DATE CREATED AUTHOR AUTHOR'S ORGANIZ ATION 11/26/2023 [facility] DATE CREATED AUTHOR AUTHOR'S ORGANIZ ATION 01/06/2024 [facility] EPIC REASON FOR VISIT (unrecogniz ed section and [...] ON THE PRIMARY CLINICAL RECORDS. [facility] [employer] [facility]. provides no warranty or guarantee of the accuracy or completeness of information in this document.
== END 2024-01-08 09:02 | disposition home or self-care (01) ==
LOC: PM 09:01
PROVIDERS: PCP Family Medicine; Visit Provider Nurse Practitioner
DX: M47.816 Spondylosis without myelopathy or radiculopathy, lumbar region (principal); Z79.891 Long term (current) use of opiate analgesic; M47.812 Spondylosis without myelopathy or radiculopathy, cervical region; M51.36 Other intervertebral disc degeneration, lumbar region
CPT/HCPCS: G0463

== ENCOUNTER 2024-02-02 07:46 | Day surgery (SDC) | payer MEDICARE, SELFPAY ==
--- OUTSIDE RECORDS SUMMARY | 2024-02-02 07:51 | XMS_ITS | CCD ---
Author Organization [facility] Care Team Providers Care Manager Business Management Name Role Phone GISELA, DR SAVANNA Willis [...] Unavailable HIGGINS, DR SAVANNA Willis Attending Unavailable WILLIAMSBURG, DR MINE [employer] Unavailable GISELA, DR [...] Higgins Unavailable SAVANNA HIGGINS Primary Care Physician [phone] Roman GUAN Attending Unavailable SHANNON, Roman Mitchell [...] take 1 tablet by mouth once daily [place]-3 Fish Oil 1 tab, Oral, Daily, Refill(s) [...] day(s), # 30 cap(s), Refills(s) 0, Pharmacy: [facility]/pharmacy #[id number], 56.1, kg, 09/17/23 8:03:00 EDT, Weight Dosing [...] CT Reporton 10-15-2023 RAD - CT Report [id number]# 1.00TIFF Najma Keenan [facility] Ambulatory Visit Summaryon 0 10-13-2023 Ambulatory [...] Vitamins oral capsule) omega-3 polyunsaturated fatty acids ([place]-3 Fish Oil) tamsulosin (Flomax 0.4 mg Cap) [...] [address] , [place] [address] [phone] Medications What How Much When Instructions Unchanged [...] or concerns Unchanged omega-3 polyunsaturated fatty acids ([place]-3 Fish Oil) 1 tab By Mouth Every [...] groin. (more content not included)... Normal Keenan [facility] Patient Educationon 10-13-19 Patient Education Urology [...] these instructions at home: Medicines ? Take mxmr-efu-mzqxxhm and prescription medicines only as told by [...] provider. Document Revised: 12/31/2021 Document Reviewed: 12/31/2021 [email or web address] Patient Education ? 2022 [employer] [facility] Urology Office/Clinic Noteon 10-13-2023 Urology [...] pass, required surgery 2 years ago in [place]. Was told at this time that she had a puncture in her kidney that would heal. Follow-up With When Contact Information SHANNON SALGUERO, Roman Mitchell, L [facility] [address], [place] [address] [phone] Additional Instructions: f/u pending CT scan Patient Education Kidney Stones, Eocr-ed-Feys Anabella Webber, personally scribed for Dr. Guan [...] Vitamins oral capsule, 1 cap(s), Oral, Daily [place]-3 Fish Oil, 1 tab, Oral, Daily Osteo [...] virus vaccine, inactivated 02/14/2023 Recorded SARS-CoV-2 (COVID-19) [id number] 03/12/2022 Recorded 2023-10-13: TPV80 influenza virus vaccine, inactivated 02/28/2022 Recorded SARS-CoV-2 (COVID-19) mRNA-1273 vaccine 11/09/2021 Recorded 2023-10-13: TPV80 SARS-CoV-2 (COVID-19) mRNA-12 (more content not included)... Normal [facility] Comment on above: Result Comment: Elec tronically Signed By: SHANNON SALGUERO, Roman Mitchell\.br\Date and Time Signed: 10/13/23 13:41 EDT\.br\Electronically Co-Signed By: Anabella Villalta\.br\Date and Time Co-Signed: 10/13/23 13:39 EDT RAD - MISCon 10-12-2023 [facility] [id number] #1.00TIFF Normal [facility] ED Note-Physicianon 09-18-19 ED Note-Physician [id number] 8#1.00TIFF Normal [facility] Formson 09-18-2023 Forms [id number] #1.00TIFF Normal [facility] RAD - CT Reporton 09-18-2023 RAD - CT Report [id number] 8#1.00TIFF Normal [facility] - MISC [id number] 1#1.00TIFF Normal [facility] RAD - MIS [id number]# 1.00TIFF Normal [facility] - MIS [id number] 9#1.00TIFF Normal [facility] Ambulatory Visit Summaryon 0 09-17-2023 [...] Vitamins oral capsule) omega-3 polyunsaturated fatty acids ([place]ne-3 Fish Oil) zolmitriptan (Zomig 5 mg oral [...] SALGUERO, Roman Mitchell Where: [facility] Patient Educationon 09-17-19 Patient Education Urology [...] these instructions at home: Medicines ? Take zbia-rvu-umedqzt and prescription medicines only as told by [...] recommendations from (more content not included)... Normal [facility] Urology Office/Clinic Noteon 09-17-2023 Urology [...] pass, required surgery 2 years ago in [place] Was told at this time [...] URL [facility] [address] [place] [address]- Additional Instructions: 3 weeks with [facility] Patient Education Kidney Stones I, Cynthia Jones, personally scribed for Dr. Guan on 09/17/2023 08:39:08. . Documentation recorded by the scribe, Cytnhia Jones, accurately reflects the services(s) I performed [...] Vitamins oral capsule, 1 cap(s), Oral, Daily [place]-3 Fish Oil, 1 tab, Oral, Daily Osteo [...] Lab Results (more content not included)... Normal [facility] Comment on above: Result Comment: Elec tronically Signed By: Roman GUAN MD\.br\Date and Time Signed: 09/17/23 08:41 EDT\.br\Electronically Co-Signed By: Cynthia Jones\.br\Date and Time Co-Signed: 09/17/23 08:39 EDT Basophils Auto (Bld) [#/Vol] on 09-09-2023 Basophils (Bld) [#/Vol] 0.0 10 3/uL 0.0-0.1 [facility] Basophils/100 WBC Auto (Bld) on 09-09-2023 Basophils/100 WBC (Bld) 0.4 % 0.2-2.0 [facility] Casts typing in urine sedime nt by light microscopyon 09-09-2023 Casts LM Nom (Urine sed) NONE SEEN #/LPF NONE SEEN [facility] Eosinophils/100 WBC Auto (Bl d)on 09-09-2023 Eosinophils/100 WBC (Bld) 1.1 % 0.9-7.0 [facility] Erythrocyte distribution wid th Auto (RBC) [Ratio]on 09-09-2023 Erythrocyte distribution width (RBC) [Ratio] 13.0 % 11.0-15.0 [facility] Estimated glomerular filtrat ion rate (GFR) non- Americanon 09-09-2023 GFR/1.73 sq M.predicted among non-blacks MDRD (S/P/Bld) [Vol rate/Area] 52 mL/min/{1.73_m2} Low >=60 [facility] Globulin Calc (S) [Mass/Vol] on 09-09-2023 Globulin (S) [Mass/Vol] 3.5 g/dL [facility] Hematocrit Auto (Bld) [Volum e fraction]on 09-09-2023 Hematocrit (Bld) [Volume fraction] 39.0 % 36.0-48.0 [facility] Hemoglobin [Mass/volume] in Bloodon 09-09-2023 Hemoglobin (Bld) [Mass/Vol] 12.6 g/dL 12.0-16.0 [facility] Laboratory - Chemistry and C hemistry - challengeon 09-09-2023 Albumin [Mass/Vol] 3.6 g/dL 3.4-5.0 [facility] ALP [Catalytic activity/Vol] 74 U/L 46-116 [facility] ALT [Catalytic activity/Vol] 30 U/L 14-59 [facility] AST [Catalytic activity/Vol] 24 U/L 15-37 [facility] Bilirubin [Mass/Vol] 0.5 mg/dL 0.2-1.0 [facility] Calcium [Mass/Vol] 9.8 mg/dL 8.5-10.1 [facility] Chloride [Moles/Vol] 102 mmol/L 98-107 [facility] CO2 [Moles/Vol] 31.2 mmol/L 21.0-32.0 [facility] Creatinine [Mass/Vol] 1.01 mg/dL 0.55-1.02 [facility] GFR/1.73 sq M.predicted MDRD (S/P/Bld) [Vol rate/Area] mL/min/{1.73_m2} >=60 [facility] Glucose [Mass/Vol] 100 mg/dL 74-106 [facility] Lipase [Catalytic activity/Vol] 25.0 U/L 16.0-77.0 [facility] Potassium [Moles/Vol] 3.9 mmol/L 3.5-5.1 [facility] Protein [Mass/Vol] 7.1 g/dL 6.4-8.2 [facility] Sodium [Moles/Vol] 140 mmol/L 136-145 [facility] Urea nitrogen [Mass/Vol] 22.0 mg/dL High 7.0-18.0 [facility] Urea nitrogen/Creatinine [Mass ratio] 21.8 mg/mg [facility] Bilirubin Ql (U) Negative NEGATIVE [facility] Glucose (U) [Mass/Vol] Negative NEGATIVE [facility] Ketones Ql (U) Negative NEGATIVE [facility] pH (U) 6.0 [pH] 5.0-9.0 [facility] Specific gravity (U) [Rel density] 1.020 1.005-1.025 [facility] Urobilinogen Qn (U) 0.2 {Sosa'U}/dL 0.2-1.0 [facility] Laboratory - Hematology and Cell countson 09-09-2023 Immature granulocytes/100 WBC (Bld) 0.3 % 0.0-0.5 [facility] Laboratory - Specimen inform ationon 09-09-2023 Appearance (U) CLEAR CLEAR [facility] Color (U) DK. YELLOW YELLOW [facility] Laboratory - Urinalysison Amorphous sediment LM Ql (Urine sed) RARE [facility] Leukocyte esterase Test strip Ql (U) TRACE Abnormal NEGATIVE [facility] Nitrite Ql (U) Negative NEGATIVE [facility] Protein Ql (U) Negative NEG/TRACE [facility] Leukocytes [#/volume] correc bill for nucleated erythrocytes in Blood by Automated counon 09-09-2023 WBC corrected for nucl RBC Auto (Bld) [#/Vol] 10.7 10 3/uL 4.0-11.0 [facility] Lymphocytes Auto (Bld) [#/Vo l]on 09-09-2023 Lymphocytes (Bld) [#/Vol] 1.5 10 3/uL 1.2-3.8 [facility] Lymphocytes/100 WBC Auto (Bl d)on 09-09-2023 Lymphocytes/100 WBC (Bld) 13.7 % Low 20.5-60.0 [facility] MCH Auto (RBC) [Entitic mass ]on 09-09-2023 MCH (RBC) [Entitic mass] 31.2 pg 26.7-34.0 [facility] MCHC Auto (RBC) [Mass/Vol]on 09-09-2023 MCHC (RBC) [Mass/Vol] 32.3 g/dL 29.9-35.2 [facility] MCV Auto (RBC) [Entitic vol] on 09-09-2023 MCV (RBC) [Entitic vol] 96.5 fL 81.0-99.0 [facility] Monocytes Auto (Bld) [#/Vol] on 09-09-2023 Monocytes (Bld) [#/Vol] 1.0 10 3/uL High 0.3-0.8 [facility] Monocytes/100 WBC Auto (Bld) on 09-09-2023 Monocytes/100 WBC (Bld) 9.5 % 1.7-12.0 [facility] Mucus LM Ql (Urine sed)on Mucus Ql (Urine sed) NONE SEEN NONE SEEN [facility] Neutrophils Auto (Bld) [#/Vo l]on 09-09-2023 Neutrophils (Bld) [#/Vol] 8.0 10 3/uL High 1.4-6.5 [facility] Neutrophils/100 WBC Auto (Bl d)on 09-09-2023 Neutrophils/100 WBC (Bld) 75.0 % 43.0-75.0 [facility] No Panel Informationon 09-08 Eosinophils # (Auto) 0.1 10 3/uL 0.0-0.7 [facility] Immature Granulocyte # (Auto) 0.03 10 3/uL 0.00-0.03 [facility] Urine Bacteria NONE SEEN #/HPF NONE SEEN [facility] Urine Culture Reflexed NO [facility] Urine Microscopic Review YES [facility] Urine Occult Blood LARGE Abnormal NEGATIVE [facility] Urine Other Crystals Seen #/HPF Abnormal None Seen [facility] Urine RBC 10-20 #/HPF Abnormal 0-2 [facility] Urine Squamous Epithelial Cells NONE SEEN #/LPF NONE/RARE [facility] Urine Uric Acid Crystals FEW [facility] Urine WBC 2-5 #/HPF Abnormal NONE SEEN [facility] Platelet mean volume Auto (B ld) [Entitic vol]on 09-09-2023 Platelet mean volume (Bld) [Entitic vol] 9.5 fL 9.5-13.5 [facility] Platelets Auto (Bld) [#/Vol] on 09-09-2023 Platelets (Bld) [#/Vol] 240 10 3/uL 150-450 [facility] RBC Auto (Bld) [#/Vol]on RBC (Bld) [#/Vol] 4.04 10 6/uL Low 4.20-5.[address] [facility] Serum or plasma albumin/glob ulin mass ratioon 09-09-2023 Albumin/Globulin [Mass ratio] 1.0 {ratio} [facility] Serum or plasma anion gap de terminationon 09-09-2023 Anion gap [Moles/Vol] 10.7 mmol/L [facility] XR RIBS LT PA Stephen XR [...] by: PB GENAO Date: 2022-10-02 11:51 Normal [facility] XR CSPINE 2_3 VIEWSon 2022 XR [...] ISAEL GRIFFIN Date: 2022-09-05 15:58 Normal [facility] CBC AUTO DIFFon 12-31-2021 BASO # 0.0 103/ul Normal 0.0-0.1 [facility] Comment on above: Performed By: #### C BC #### [facility] [address] [place], [place] [address] Dr. Radha Land Basophils/100 WBC (Bld) 0.2 % Normal 0.2-2.0 [facility] Comment on above: Performed By: #### C BC #### [facility] [address] [place] [address] Dr. Radha Land EO # 0.2 103/ul Normal 0.0-0.7 [facility] Comment on above: Performed By: #### C BC #### [facility] [address] [place] [address] Dr. Radha Land Eosinophils/100 WBC (Bld) 1.7 % Normal 0.9-7.0 [facility] Comment on above: Performed By: #### C BC #### [facility] [address] [place] [address] Dr. Radha Land Erythrocyte distribution width (RBC) [Ratio] 13.4 % Normal 11.0-15.0 [facility] Comment on above: Performed By: #### C BC #### [facility] [address] [place] [address] Dr. Radha Land Hematocrit (Bld) [Volume fraction] 40.9 % Normal 36.0-48.0 [facility] Comment on above: Performed By: #### C BC #### [facility] [address] [place] [address] Dr. Radha Land Hemoglobin (Bld) [Mass/Vol] 13.1 g/dL Normal 12.0-16.0 [facility] Comment on above: Performed By: #### C BC #### [facility] [address] [place] [address] Dr. Radha Land IG # 0.05 10e3/ul Critically high 0.00-0.03 [facility] Comment on above: Performed By: #### C BC #### [facility] [address] [place] [address] Dr. Radha Land IG % 0.4 % Normal 0.0-0.5 [facility] Comment on above: Performed By: #### C BC #### [facility] [address] [place] [address] Dr. Radha Land LYMPH # 1.4 103/ul Normal 1.2-3.8 [facility] Comment on above: Performed By: #### C BC #### [facility] [address] [place] [address] Dr. Radha Land Lymphocytes/100 WBC (Bld) 10.8 % Critically low 20.5-60.0 [facility] Comment on above: Performed By: #### C BC #### [facility] [address] [place] [address] Dr. Radha Land MANUAL DIFF REQ NO Normal [facility] Comment on above: Performed By: #### C BC #### [facility] [address] [place] [address] Dr. Radha Land MCH (RBC) [Entitic mass] 31.5 pg Normal 26.7-34.0 [facility] Comment on above: Performed By: #### C BC #### [facility] [address] [place] [address] Dr. Radha Land MCHC (RBC) [Mass/Vol] 32.0 g/dL Normal 29.9-35.2 [facility] Comment on above: Performed By: #### C BC #### [facility] [address] [place] [address] Dr. Radha Land MCV (RBC) [Entitic vol] 98.3 fL Normal 81.0-99.0 [facility] Comment on above: Performed By: #### C BC #### [facility] [address] [place] [address] Dr. Radha Land MONO # 1.3 103/ul Critically high 0.3-0.8 [facility] Comment on above: Performed By: #### C BC #### [facility] [address] [place] [address] Dr. Radha Land Monocytes/100 WBC (Bld) 9.7 % Normal 1.7-12.0 [facility] Comment on above: Performed By: #### C BC #### [facility] [address] [place] [address] Dr. Radha Land NEUT # 10.2 103/ul Critically high 1.4-6.5 [facility] Comment on above: Performed By: #### C BC #### [facility] [address] [place] [address] Dr. Radha Land Neutrophils/100 WBC (Bld) 77.2 % Critically high 43.0-75.0 [facility] Comment on above: Performed By: #### C BC #### [facility] [address] [place] [address] [address] Radha Land Platelet mean volume (Bld) [Entitic vol] 9.7 fL Normal 9.5-13.5 [facility] Comment on above: Performed By: #### C BC #### [facility] [address] [place] [address] [address] Radha Land PLT 235 103/ul Normal 150-450 [facility] Comment on above: Performed By: #### C BC #### [facility] [address] [place] [address] [address] Radha Land RBC 4.16 106/ul Critically low 4.20-5.40 [facility] Comment on above: Performed By: #### C BC #### [facility] [address] [place] [address] [address] Radha Land WBC 13.2 103/ul Critically high 4.0-11.0 [facility] Comment on above: Performed By: #### C BC #### [facility] [address] [place] [address] Dr. Radha Land SED RATE WESTERGRENon 2021 SED RATE 35 mm/hr Critically high <=30 [facility] Comment on above: Performed By: #### S EDR #### [facility] [address] [place] [address] Dr. Radha Land CBC AUTO DIFFon 11-07-2021 BASO # 0.0 103/ul Normal 0.0-0.1 [facility] Comment on above: Performed By: #### C BC ####[facility] [address] [place] [address]Dr. Radha Land Basophils/100 WBC (Bld) 0.3 % Normal 0.2-2.0 [facility] Comment on above: Performed By: #### C BC ####[facility] [address] [address]Dr. Radha Land EO # 0.2 103/ul Normal 0.0-0.7 [facility] Comment on above: Performed By: #### C BC ####[facility] [address] [place] [address]Dr. Radha Land Eosinophils/100 WBC (Bld) 3.3 % Normal 0.9-7.0 [facility] Comment on above: Performed By: #### C BC ####[facility] [address] [place], [place] [address]Dr. Radha Land Erythrocyte distribution width (RBC) [Ratio] 13.2 % Normal 11.0-15.0 [facility] Comment on above: Performed By: #### C BC ####[facility] [address] [place], [place] [address]Dr. Radha Land Hematocrit (Bld) [Volume fraction] 41.9 % Normal 36.0-48.0 [facility] Comment on above: Performed By: #### C BC ####[facility] [address] [place], [place] [address]Dr. Radha Land Hemoglobin (Bld) [Mass/Vol] 13.4 g/dL Normal 12.0-16.0 [facility] Comment on above: Performed By: #### C BC ####[facility] [address] [place], [place] [address]Dr. Radha Land IG # 0.01 10e3/ul Normal 0.00-0.03 [facility] Comment on above: Performed By: #### C BC ####[facility] [address] [place], [place] [address]Dr. Radha Land IG % 0.2 % Normal 0.0-0.5 [facility] Comment on above: Performed By: #### C BC ####[facility] [address] [place], [place] [address]DrHernandez Radha Land LYMPH # 1.6 103/ul Normal 1.2-3.8 [facility] Comment on above: Performed By: #### C BC ####[facility] [address] [place], [place] [address]Dr. Radha Land Lymphocytes/100 WBC (Bld) 27.5 % Normal 20.5-60.0 [facility] Comment on above: Performed By: #### C BC ####[facility] [address] [address]Dr. Radha Land MANUAL DIFF REQ NO Normal [facility] Comment on above: Performed By: #### C BC ####[facility] [address] [place] [address]Dr. Radha Land MCH (RBC) [Entitic mass] 31.2 pg Normal 26.7-34.0 [facility] Comment on above: Performed By: #### C BC ####[facility] [address] [place], [place] [address]Dr. Radha Land MCHC (RBC) [Mass/Vol] 32.0 g/dL Normal 29.9-35.2 [facility] Comment on above: Performed By: #### C BC ####[facility] [address] [place], [place] [address]Dr. Radha Land MCV (RBC) [Entitic vol] 97.7 fL Normal 81.0-99.0 [facility] Comment on above: Performed By: #### C BC ####[facility] [address] [place], [place] [address]Dr. Radha Land MONO # 0.7 103/ul Normal 0.3-0.8 [facility] Comment on above: Performed By: #### C BC ####[facility] [address] [place], [place] [address]Dr. Radha Land Monocytes/100 WBC (Bld) 12.4 % Critically high 1.7-12.0 [facility] Comment on above: Performed By: #### C BC ####[facility] [address] [place], [place] [address]DrHernandez Land NEUT # 3.2 103/ul Normal 1.4-6.5 [facility] Comment on above: Performed By: #### C BC ####[facility] [address] [place], [place] [address]Dr. Radha Land Neutrophils/100 WBC (Bld) 56.3 % Normal 43.0-75.0 [facility] Comment on above: Performed By: #### C BC ####[facility] [address] [address]Dr. Radha Land Platelet mean volume (Bld) [Entitic vol] 9.4 fL Critically low 9.5-13.5 [facility] Comment on above: Performed By: #### C BC ####[facility] [address] [id number]. Jacquelyncharlotte Emery PLT 226 103/ul Normal 150-450 [facility] Comment on above: Performed By: #### C BC ####[facility] [address] [address]Dr. Jacquelyncharlotte Emery RBC 4.29 106/ul Normal 4.20-5.40 [facility] Comment on above: Performed By: #### C BC ####[facility] [address] [place] [address]Dr. Radha Emery WBC 5.7 103/ul Normal 4.0-11.0 [facility] Comment on above: Performed By: #### C BC ####[facility] [address] [place] [address]Dr. Jacquelyncharlotte Emery LIPID PROFILEon 11-07-2021 CHOL-HDL RATIO NORM SEE BELOW Normal [facility] Comment on above: Result Comment: 3.3 - 4.4 LOW RISK 4.4 - 7.1 AVERAGE RISK 7.1 - 11.0 MODERATE RISK >11.0 HIGH RISK Performed By: #### L IPID, CMP #### [facility] [address] [place] [address] [address] Radha Land Cholesterol [Mass/Vol] 257 mg/dL Critically high <=200 [facility] Comment on above: Performed By: #### L IPID, CMP #### [facility] [address] [place] [address] [address] Radha Land Cholesterol in HDL [Mass/Vol] 76 mg/dL Critically high 40-60 [facility] Comment on above: Performed By: #### L IPID, CMP #### [facility] [address] [place] [address] [address] Radha Land Cholesterol in LDL [Mass/Vol] 163.8 mg/dL Normal [facility] Comment on above: Performed By: #### L IPID, CMP #### [facility] [address] [place] [address] [address] Radha Land Cholesterol.total/Cho lesterol in HDL [Mass ratio] 3.4 {ratio} Normal [facility] Comment on above: Performed By: #### L IPID, CMP #### [facility] [address] [place] [address] [address] Radha Land HDL NORMAL > or = 60 mg/dl - LOW CARDIOVASCULAR RISK <40 mg/dl - HIGH CARDIOVASCULAR RISK Normal [facility] Comment on above: Performed By: #### L IPID, CMP #### [facility] [address] [place] [address] Dr. Radha Land LDL CALC NORMAL SEE BELOW Normal [facility] Comment on above: Result Comment: <100 mg/dl OPTIMAL 100 - 129 mg/dl NEAR OR ABOVE OPTIMAL 130 - 159 mg/dl BORDERLINE HIGH 160 - 189 mg/dl HIGH >190 mg/dl VERY HIGH Performed By: #### L IPID, CMP #### [facility] [address] [place] [address] Dr. Radha Land Triglyceride [Mass/Vol] 86 mg/dL Normal <=150 [facility] Comment on above: Performed By: #### L IPID, CMP #### [facility] [address] [place] [address] Dr. Radha Land VLDL CALC 17.2 mg/dL Normal [facility] Comment on above: Performed By: #### L IPID, CMP #### [facility] [address] [place] [address] Dr. Radha [place] MG MAMM SCREEN 3D GIANCARLO CADon 11-07-2021 MG MAMM SCREEN 3D GIANCARLO CAD Patient: EDUARDO LEA Exam Date: 11/07/2021 : 1940 Gender:F Ordering : DR SAVANNA HIGGINS M.D. Admission #: [id number] Family : Order #: [id number] CLICK HERE TO VIEW EXAM RADIOLOGY REPORT [...] ovarian cancer at age 47. LOCATION: [facility] BREAST COMPOSITION: Extremely dense, which [...] Arriaga MD on 11/07/2021 at 11:21 Normal [facility] PROF 14(COMP METB)on 022 Albumin [Mass/Vol] 3.6 g/dL Normal 3.4-5.0 [facility] Comment on above: Performed By: #### L IPID, CMP #### [facility] [address] [place] [address] Dr. Radha Land Albumin/Globulin [Mass ratio] 0.9 {ratio} Normal [facility] Comment on above: Performed By: #### L IPID, CMP #### [facility] [address] [address] [address] Radha Land ALP [Catalytic activity/Vol] 79 U/L Normal 46-116 [facility] Comment on above: Performed By: #### L IPID, CMP #### [facility] [address] [place] [address] Dr. Radha Land ALT [Catalytic activity/Vol] 32 U/L Normal 14-59 [facility] Comment on above: Performed By: #### L IPID, CMP #### [facility] [address] [address] [address] Radha Land Anion gap [Moles/Vol] 6.1 mmol/L Normal [facility] Comment on above: Performed By: #### L IPID, CMP #### [facility] [address] [address] [address] Radha Land AST [Catalytic activity/Vol] 28 U/L Normal 15-37 [facility] Comment on above: Performed By: #### L IPID, CMP #### [facility] [address] [place] [address] Dr. Radha Land Bilirubin [Mass/Vol] 0.6 mg/dL Normal 0.2-1.0 [facility] Comment on above: Performed By: #### L IPID, CMP #### [facility] [address] [place] [address] Dr. Radha Land Calcium [Mass/Vol] 9.1 mg/dL Normal 8.5-10.1 [facility] Comment on above: Performed By: #### L IPID, CMP #### [facility] [address] [place] [address] Dr. Radha Land Chloride [Moles/Vol] 104 mmol/L Normal 98-107 [facility] Comment on above: Performed By: #### L IPID, CMP #### [facility] [address] [place] [address] Dr. Radha Land CO2 [Moles/Vol] 31.0 mmol/L Normal 21.0-32.0 [facility] Comment on above: Performed By: #### L IPID, CMP #### [facility] [address] [place] [address] Dr. Radha Land Creatinine [Mass/Vol] 0.86 mg/dL Normal 0.55-1.02 [facility] Comment on above: Performed By: #### L IPID, CMP #### [facility] [address] [place] [address] Dr. Radha Land EGFR-AF CAMBODIAN >60 Normal >=60 [facility] Comment on above: Performed By: #### L IPID, CMP #### [facility] [address] [address] [address] Radha Land EGFR-NON AF CAMBODIAN >60 Normal >=60 [facility] Comment on above: Performed By: #### L IPID, CMP #### [facility] [address] [address] [address] Radha aLnd Globulin (S) [Mass/Vol] 4.1 g/dL Normal [facility] Comment on above: Performed By: #### L IPID, CMP #### [facility] [address] [address] [address] Radha Land Glucose [Mass/Vol] 89 mg/dL Normal 74-106 [facility] Comment on above: Performed By: #### L IPID, CMP #### [facility] [address] [place] [address] Dr. Radha Land Potassium [Moles/Vol] 4.1 mmol/L Normal 3.5-5.1 [facility] Comment on above: Performed By: #### L IPID, CMP #### [facility] [address] [place] [address] Dr. Radha Land Protein [Mass/Vol] 7.7 g/dL Normal 6.4-8.2 [facility] Comment on above: Performed By: #### L IPID, CMP #### [facility] [address] [place] [address] Dr. Radha Land Sodium [Moles/Vol] 137 mmol/L Normal 136-145 [facility] Comment on above: Performed By: #### L IPID, CMP #### [facility] [address] [place] [address] Dr. Radha Land Urea nitrogen [Mass/Vol] 12.0 mg/dL Normal 7.0-18.0 [facility] Comment on above: Performed By: #### L IPID, CMP #### [facility] [address] [place] [address] Dr. Radha Land Urea nitrogen/Creatinine [Mass ratio] 14.0 mg/mg Normal [facility] Comment on above: Performed By: #### L IPID, CMP #### [facility] [address] [address] [address] Radha Land Vital Signs Date Time Vital Sign Value Performing Clinician Facility 11-18-2023 10:53-0400 Body height 165.1 cm [facility] 11-18-2023 10:53-0400 Body mass index (BMI) [Ratio] 20.5 kg/m2 [facility] 11-18-2023 10:53-0400 Body weight 55.79 kg [facility] 11-18-2023 10:53-0400 Diastolic blood pressure 55 mm[Hg] [facility] 11-18-2023 10:53-0400 Heart rate 65 /min [facility] 11-18-2023 10:53-0400 Systolic blood pressure 132 mm[Hg] [facility] 11-06-2023 11:11-0400 Body height 165.1 cm [facility] 11-06-2023 11:11-0400 Body mass index (BMI) [Ratio] 20.2 kg/m2 [facility] 11-06-2023 11:11-0400 Body weight 55.33 kg [facility] 11-06-2023 11:11-0400 Diastolic blood pressure 67 mm[Hg] [facility] 11-06-2023 11:11-0400 Heart rate 61 /min [facility] 11-06-2023 11:11-0400 Systolic blood pressure 124 mm[Hg] [facility] 10-13-2023 12:31-0400 Blood Pressure Location Roman GUAN [facility] 10-13-2023 12:31-0400 Diastolic blood pressure 78 mm[Hg] Roman GUAN [facility] 10-13-2023 12:31-0400 Heart rate 80 /min Roman GUAN [facility] 10-13-2023 12:31-0400 Respiratory rate 16 /min Roman GUAN [facility] 10-13-2023 12:31-0400 Systolic blood pressure 134 mm[Hg] Roman GUAN [facility] 09-30-2023 14:31-0400 Body height 165.1 cm [facility] 09-30-2023 14:31-0400 Body mass index (BMI) [Ratio] 20.5 kg/m2 [facility] 09-30-2023 14:31-0400 Body weight 55.79 kg [facility] 09-30-2023 14:31-0400 Diastolic blood pressure 62 mm[Hg] [facility] 09-30-2023 14:31-0400 Heart rate 64 /min [facility] 09-30-2023 14:31-0400 Systolic blood pressure 104 mm[Hg] [facility] 09-17-2023 08:00-0400 Blood Pressure Location Roman GUAN [facility] 09-17-2023 08:00-0400 Diastolic blood pressure 80 mm[Hg] Roman GUAN [facility] 09-17-2023 08:00-0400 Heart rate 64 /min Roman GUAN [facility] 09-17-2023 08:00-0400 Systolic blood pressure 132 mm[Hg] Roman GUAN [facility] 01-10-2023 09:45-0400 Body height 165.1 cm Savanna Higgins Other [facility] Other 01-10-2023 09:45-0400 Body mass index (BMI) [Ratio] 20.87 kg/m2 Savanna Higgins Other [facility] Other 01-10-2023 09:45-0400 Body weight 56.88 kg Savanna Higgins Other [facility] Other 01-10-2023 09:45-0400 Diastolic blood pressure 78 mm[Hg] Savanna Higgins Other [facility] Other 01-10-2023 09:45-0400 Systolic blood pressure 142 mm[Hg] Savanna Higgins Other [facility] Other 10-28-2022 08:30-0400 Body height 165.1 cm Savanna Higgins Other [facility] Other 10-28-2022 08:30-0400 Body mass index (BMI) [Ratio] 20.47 kg/m2 Savanna Higgnis Other [facility] Other 10-28-2022 08:30-0400 Body weight 55.79 kg Savanna Higgins Other [facility] Other 10-28-2022 08:30-0400 Diastolic blood pressure 47 mm[Hg] Savanna Higgins Other [facility] Other 10-28-2022 08:30-0400 Systolic blood pressure 124 mm[Hg] Savanna Higgins Other [facility] Other Encounters Encounter Date Encounter Type Care Provider Facility Start: 10-15-2024 ambulatory Roman Mota ty:ANDREW [place] Start: 01-05-2024 End: 01-05-2024 ambulatory REBECA ROSENBERG Not Available Start: 12-09-2023 End: 12-09-2023 ambulatory [facility] Work Phone: Start: 12-09-2023 End: 12-09-2023 Patient encounter procedure [facility] Physician [facility] Work Phone: Start: 11-18-2023 End: 11-18-2023 ambulatory [facility] Work Phone: Start: 11-18-2023 End: 11-18-2023 Patient encounter procedure [facility] Physician [facility] Work Phone: Start: 11-10-2023 Patient encounter procedure [facility] Start: 11-06-2023 End: 11-06-2023 Patient encounter procedure [facility] Physician [facility] Work Phone: Start: 10-13-2023 End: 10-13-2023 ambulatory Roman GUAN Facility:[facility] Start: 10-13-2023 End: 10-13-2023 Patient encounter procedure Roman GUAN [facility] Start: 09-30-2023 End: 09-30-2023 ambulatory [facility] Work Phone: Start: 09-30-2023 End: 09-30-2023 Patient encounter procedure [facility] Physician [facility] Work Phone: Start: 09-17-2023 End: 09-17-2023 ambulatory Roman GUAN Facility:[facility] Start: 09-17-2023 End: 09-17-2023 Patient encounter procedure Roman GUAN [facility] Start: 09-11-2023 ambulatory Roman GUAN Facility :[facility] Start: 09-09-2023 Non-patient / Non-visit [facility] Physician [facility] Work Phone: Start: 08-26-2023 End: 08-26-2023 ambulatory [facility] Work Phone: Start: 08-26-2023 End: 08-26-[address] [facility] Work Phone: Start: 03-28-2023 End: 03-28-2023 ambulatory Savanna Higgins Other [employer] [facility] Other Start: 03-28-2023 Telephone encounter Savanna Gisela [facility] Start: 01-31-2023 End: 01-31-2023 ambulatory Savanna Higgins Other [facility] Other Start: 01-31-2023 Nursing evaluation o f patient and report Savanna Higgins [facility] Start: 01-14-2023 End: 01-14-2023 ambulatory Savanna Higgins Other [facility] Other Start: 01-14-2023 Telephone encounter Savanna Higgins [facility] Start: 01-10-2023 End: 01-10-2023 ambulatory Savanna Higgins Other [facility] [facility] Other Start: 01-10-2023 Office outpatient visit 15 minutes Savanna Higgins [facility] Start: 10-28-2022 End: 10-28-2022 ambulatory Savanna Higgins Other [facility] Other Start: 10-28-2022 Patient encounter procedure Savanna Gisela [facility] Start: 10-24-2022 End: 10-24-2022 ambulatory Savanna Higgins Other [facility] Other Start: 10-24-2022 Telephone encounter Savanna Higgins [facility] Start: 10-08-2022 End: 10-08-2022 ambulatory [...] 12-31-2021 Adult health examination Savanna Higgins Other [facility] [employer] Other Start: 12-31-2021 End: 01-01-[address] [...] extraction and insertion of intraocular lens Roman UGAN Comment on above: left eye cervical herniated d isc removed Roman GUAN Excision of bunion Roman SEVILLA Comment on above: bilateralwillard Hysterectomy and giancarlo ateral salpingo-oophorectomy sample (specimen) Roman GUAN Screening for malign ant neoplasm of breast Savanna Higgins Other stapidectomy 3 Roman JODI S Comment on above: right ear Plan of Treatment Date Care Activity Detail Author Diagnostic radiograp hy of abdomen [facility] MG Breast - bilatera l Screening [facility] Patient Education Low back pain in adults [facility] Work Phone: [facility] Immunizations Immunization Date Immunization Notes Care Provider Fa juancho 02-14-2023 influenza virus vaccine, unspecified formulation Roman GUAN [facility] 03-12-2022 SARS-CoV-2 (COVID-19 ) [id number] Roman GUAN [facility] Comment on above: Result Comment: 2023: [id number] 02-28-2022 influenza virus vaccine, split virus (incl. purified surface antigen) Savanna Higgins Other [employer] [facility] Other 02-28-2022 influenza virus vaccine, unspecified formulation [facility] 11-09-2021 SARS-CoV-2 (COVID-19 ) mRNA-1273 vaccine Roman GUAN [facility] Comment on above: Result Comment: 2023: [id number] 03-08-2021 SARS-CoV-2 (COVID-19 ) mRNA-1273 vaccine Roman GUAN [facility] 02-27-2021 influenza virus vaccine, split virus (incl. purified surface antigen) Savanna Higgins Other [employer] [facility] Other 02-27-2021 influenza virus vaccine, unspecified formulation [facility] 06-29-2020 SARS-CoV-2 (COVID-19 ) mRNA-1273 vaccine Roman GUAN [facility] 06-01-2020 SARS-CoV-2 (COVID-19 ) mRNA-1273 vaccine Roman GUAN [facility] 03-14-2020 zoster vaccine recombinant Roman GUAN [facility] 02-16-2020 influenza virus vaccine, split virus (incl. purified surface antigen) Savanna Higgins Other [employer] [facility] Other 02-16-2020 influenza virus vaccine, unspecified formulation [facility] 10-25-2019 pneumococcal polysaccharide vaccine, 23 valent Savanna Higgins Other [facility] 01-25-2019 influenza virus vaccine, unspecified formulation Roman GUAN [facility] 03-10-2018 pneumococcal conjuga te vaccine, 13 valent Savanna Higgins Other [facility] 02-14-2018 influenza virus vaccine, unspecified formulation Roman GUAN [facility] 01-08-2017 influenza virus vaccine, split virus (incl. purified surface antigen) Savanna Higgins Other [employer] [facility] Other 01-08-2017 influenza virus vaccine, unspecified formulation [facility] 02-06-2016 influenza virus vaccine, split virus (incl. purified surface antigen) Savanna Higgins Other [employer] [facility] [employer] Other 02-06-2016 influenza virus vaccine, unspecified formulation [facility] 03-24-2015 influenza virus vaccine, split virus (incl. purified surface antigen) Savanna Higgins Other [employer] [facility] Other 03-24-2015 influenza virus vaccine, unspecified formulation [facility] 02-26-2013 tetanus and diphther ia toxoids, adsorbed, preservative free, for adult use (5 Lf of tetanus toxoid and 2 Lf of diphtheria toxoid) Savanna Higgins Other [facility] Payers Date Payer Category Payer Medicare [id number] 1960 Medicare [id number] 1940 Unknown [id number] 2.16.84 [id number] 1940 Unknown [id number] 2.16.84 [id number] 1940 Unknown [id number] 2.16.84 0.1.462453.3.579.2.593 1940 Unknown [id number] 2.16.84 0.1.821665.3.579.2.593 1940 Unknown [id number] 2.16.84 0.1.902474.3.579.2.593 1940 Unknown [id number] 2.16.84 0.1.249439.3.579.2.593 1940 Unknown [id number] 2.16.84 0.1.030809.3.579.2.593 1940 Unknown [id number] 2.16.84 0.1.534989.3.579.2.593 1940 Unknown [id number] 2.16.84 0.1.251708.3.579.2.593 1940 Unknown [id number] 2.16.84 0.1.221932.3.579.2.593 1940 Unknown [id number] 2.16.84 0.1.639054.3.579.2.593 1940 Unknown [id number] 2.16.84 0.1.385789.3.579.2.593 1940 Unknown [id number] 2.16.8 40.1.703983.3.579.2.727 1940 Unknown [id number] 2.16.8 40.1.329219.3.579.2.727 1940 Unknown [id number] 2.16.8 40.1.482736.3.579.2.727 1940 Unknown [id number] 2.16.8 40.1.807277.3.579.2.727 1940 Unknown [id number] 2.16.84 0.1.232945.3.579.2.1259 Private Health Insurance [id number] Social History Date Type Detail Facility Unknown if ever smoked [facility] [facility] Other Sex Assigned At [facility] Start: 1940 Sex Assigned At Female F [facility] Start: 09-17-2023 End: 10-13-2023 Tobacco smoking status Never smoked tobacco (finding) [facility] Tobacco smoking status Never [facility] Functional Status Date Assessment Result Facility 10-13-2023 Functional Status N/A [facility] 09-17-2023 Functional Status N/A [facility] Clinical Notes 12-19-2021 to 10-13-2023 Note Date & Type Note Facility 10-13-2023 Hospital Discharg e instructions Patient Education 10/13/2023 13:39:08 Kidney Stones, Iria-xk-Yzvt Kidney Stones Kidney stones are rock-like masses [...] Follow these instructions at home: Medicines Take uvei-uec-mgtlwgk and prescription medicines only as told by [...] provider. Document Revised: 12/31/2021 Document Reviewed: 12/31/2021 [employer] Patient Education 2022 [employer]. Follow Up Care 09/17/2023 08:40:02 With:SHANNON SALGUERO, Roman Mitchell, URL Address: [facility] [address] [place] [address] [phone] When: Unknown [facility] 09-17-2023 Hospital Discharg e instructions Patient [...] Follow these instructions at home: Medicines Take lyya-aad-fmyqrgd and prescription medicines only as told by [...] provider. Document Revised: 08/07/2022 Document Reviewed: 08/07/2022 [employer] Patient Education 2022 [employer]. Follow Up Care 09/11/2023 08:49:49 With:SHANNON SALGUERO, Roman Mitchell, JJ Address: [facility] [address] [place] [address]- When: Unknown [facility] 01-31-2023 Evaluation note Encounter Date Diagnosis Assessment Notes Jan, Seasonal allergic rhinitis, unspecified trigger (ICD-10 - J30.2) [facility] Other 09-01-2023 Evaluation note* Encounter Date Diagnosis Assessment Notes Treatment Notes Treatment Clinical Notes Jan, Piriformis syndrome of left side (ICD-10 - G57.02) Unable to add more tramadol - likely has pain clinic w [facility]. PT order printed. Add steroids. Also gave copies of home exercises. [facility] Other 06-19-2023 Evaluation note* Encounter Date Diagnosis [...] - order handwritten and given to pt [facility] [facility] Other 04-27-2023 NoteCONSULTATION CONSULTATION DATE: 09/05/2022 TO: [...] our patients to inform us about any cmim-vsi-xfnsuha medications or herbal remedies/nutritional supplements/alternative remedies. 2. [...] treatment options with their primary care provider.[id number] Note CONSULTATION PROCEDURE DATE: 12/25/2021 PREOPERATIVE DIAGNOSIS: [...] procedurally range of motion exercises are performed.[facility] 12-19-2021 NoteCONSULTATION CONSULTATION DATE: 12/19/2021 [...] she was seen by the physician assistant buyer in the office and received left glenohumeral [...] the plan of care, [facility] Future Appointments Appointment Date:10/13/2023 12:15:00 PM Scheduled Provider:SHANNON SALGUERO, Roman Mitchell Location:[facility] Appointment Type:URO Office Visit [facility] Evaluation noteNo InformationNort [employer] Other Evaluation noteNo assessment information available [facility] Work Phone: Evaluation note* Diagnosis Onset Date Resolution Status Right lumbar pain acute [facility] Work Phone: Evaluation note* Diagnosis Onset Date Resolution Status Right lumbar pain acute Medicare annual wellness visit, subsequent acute Nephrolithiasis acute Screening mammogram for breast cancer acute [facility] Work Phone: Evaluation note* Diagnosis Onset Date Resolution Status Right lumbar pain acute Medicare annual wellness visit, subsequent acute Nephrolithiasis acute Screening mammogram for breast cancer acute Laceration of left lower leg without complication acute Lumbar back pain acute [facility] Work Phone: History general Narrative - Reported* Type Description Date Medical History migraine headache Medical History dizziness Medical History tremors Surgical History hysterectomy Surgical History bunionectomy Surgical History stapedectomy Hospitalization History see above [employer] [facility] Other Hospital course Narrative No data available for this section [facility] note No data available for this section [facility] beSUCCESS Summary Purpose Family History No Family History [...] content) DATE CREATED AUTHOR [facility]18[facility]2022 [facility] DATE CREATED AUTHOR AUTHOR'S ORGANIZ ATION 11/26/2023 [facility] DATE CREATED AUTHOR AUTHOR'S ORGANIZ ATION 01/06/2024 [facility] EPIC REASON FOR VISIT (unrecogniz ed [...] BE BASED ON THE PRIMARY CLINICAL RECORDS. [facility]. provides no warranty or guarantee of the accuracy or completeness of information in this document.
[2024-02-02 08:07] VITALS: BP 146/71; PULSE 66; TEMP 36.3; O2SAT 99
[2024-02-02 08:41] VITALS: BP 132/69; PULSE 64; O2SAT 96
[2024-02-02] MEDS: BUPIVACAINE HCL 0.25% PF 25 MG/10 ML VIAL INJ (08:41)
[2024-02-02] MEDS: LIDOCAINE HCL 2% 400 MG/20 ML MDV 15 ML INJ (08:41)
[2024-02-02 08:43] VITALS: BP 160/76; PULSE 66; O2SAT 94
--- NOTE | 2024-02-02 08:44 | W.PM.PROCNOT ---
Date of procedure: 02/02/24 Pre-op diagnosis: Pain due to lumbar spondylosis without myelopathy Post-op diagnosis: same as pre-op Procedure: Procedure: Bilateral L3-4, L4-5 medial branch block Medications: Bupivacaine 0.25% 6cc The patient was seen and examined in the preoperative holding area.? An informed consent was obtained and placed on the chart.? The patient was brought to the medical procedure unit and placed in the prone position.? A timeout was completed verifying correct patient, procedure site, positioning, plan, and special equipment.? Using aseptic technique, the needle was placed at left L3. Under direct fluoroscopic visualization a Quincke-tipped spinal needle was advanced to the junction of the superior articulating process with the transverse process at the designated medial branch segment.? Preceded by negative aspiration, the above-mentioned injectate was placed in 1 mL aliquots.? The procedure was repeated at left L4, 5.? The needle was removed and insertion site was covered. The same procedure, at the same levels, was completed on the right side. The patient was taken to the postprocedural recovery area and monitored for an appropriate length of time before found suitable for discharge in the company of a responsible adult. Anesthesia: Local Surgeon: Dulce Cifuentes Pathology: none sent Condition: stable Disposition: no change
== END 2024-02-02 08:48 | disposition home or self-care (01) ==
LOC: SURGOUT 07:48
PROVIDERS: PCP Family Medicine; Visit Provider Anesthesiology
DX: M47.816 Spondylosis without myelopathy or radiculopathy, lumbar region (principal)
CPT/HCPCS: 64493; 64494; J0665

== ENCOUNTER 2024-02-11 09:03 | Outpatient (OUT) | payer MEDICARE, SELFPAY ==
--- NOTE | 2024-02-11 09:32 | PM.CN ---
Consult Note: HPI Data of Consult Patient: known to practice within the last 3 years Requesting Physician: Ana Gracia NP Primary Care Provider: Savanna Guajardo MD Consult Narrative Reason for consult: chronic low back pain Narrative: Ninfa Franco a pleasant 83 year old female presents for evaluation of chronic low back pain. Patient has a chronic history of low back pain unresponsive to conservative medications including tylenol, OTC NSAIDs, heat, ice and PT. Patient engaged in aquatherapy at this time with no benefit, has attended 6/8 visits. Patient recently underwent a L5/S1 STEVEN with 90% improvement in pain for 3 days before pain returned to baseline, recently underwent bilateral L3-4 L4-5 MBB #1 with less than 80% improvement. Patient continues to have moderate to severe low back pain, at this time no radiculopathy. Pain 8/10 increased with twisting pushing pulling standing bending and activity. Pain improved with diclofenac, tramadol, sitting, lying, and sleep. cc:: CC: Ana Gracia NP Review of Systems ROS Status of ROS 10 or more systems reviewed and unremarkable except as noted in history and below Musculoskeletal Reports: back pain PFSH PFSH Medical History Osteoarthritis ?M19.90 - Unspecified osteoarthritis, unspecified site (ICD-10) Hearing deficit ?H91.90 - Unspecified hearing loss, unspecified ear (ICD-10) Surgical History History of bunionectomy of left great toe ?Z98.890 - Other specified postprocedural states (ICD-10) History of stapedectomy ?Z90.09 - Acquired absence of other part of head and neck (ICD-10) History of cervical discectomy ?Z98.890 - Other specified postprocedural states (ICD-10) History of hysterectomy ?Z90.710 - Acquired absence of both cervix and uterus (ICD-10) Meds Home Medications and Allergies Home Medications ?Medication ?Instructions ?Recorded ?Confirmed ?Type calcium-vitamin D3-vitamin K 500 1 tab PO DAILY 11/06/22 02/02/24 History mg-100 unit-40 mcg chewable tablet diclofenac sodium 50 mg 50 mg PO BID 11/06/22 02/02/24 History tablet,delayed release glucosamine-chondroitin 250 mg-200 2 tab PO DAILY 11/06/22 02/02/24 History mg tablet (Osteo Bi-Flex) lactobacillus combo no.13 1 1 cap PO DAILY 11/06/22 02/02/24 History billion cell capsule,delayed release (Probiotic Pearls Complete) magnesium 200 mg tablet 400 mg PO DAILY 11/06/22 02/02/24 History meclizine 25 mg chewable tablet 25 mg PO DAILY 11/06/22 02/02/24 History (Antivert) metoprolol tartrate 50 mg tablet 50 mg PO DAILY 11/06/22 02/02/24 History multivitamin (Daily Multi-Vitamin 1 tab PO DAILY 11/06/22 02/02/24 History tablet) omega 7-whj-jeh-fish oil 1,200 mg 1 cap PO DAILY 11/06/22 02/02/24 History (144 mg-216 mg) capsule (Fish Oil) prasterone (dhea) 50 mg capsule 50 mg PO DAILY 11/06/22 02/02/24 History (DHEA) vitamin B complex (B 1 tab PO DAILY 11/06/22 02/02/24 History Complex-Vitamin B12 tablet) atenolol 50 mg tablet 50 mg PO DAILY 09/09/23 02/02/24 History hydrocodone 5 mg-acetaminophen 325 1 tab PO Q8H PRN pain 3 days #10 09/09/23 02/02/24 Rx mg tablet tabs ondansetron 4 mg disintegrating 4 mg PO Q8H PRN nausea and 09/09/23 02/02/24 Rx tablet vomiting 4 days #12 tabs tamsulosin 0.4 mg capsule (Flomax) 0.4 mg PO DAILY #7 caps 09/09/23 02/02/24 Rx tramadol 50 mg tablet 50 mg PO BID PRN pain #60 tabs 12/03/23 02/02/24 Rx Allergies Allergy/AdvReac Type Severity Reaction Status Date / Time No Known Drug Allergies Allergy Verified 02/02/24 08:16 Exam Constitutional Documenting provider has reviewed patient's vital signs: yes Common normals: no apparent distress, oriented x3, healthy appearing, alert and well nourished General appearance: cooperative HENMT Common normals: normocephalic, hearing grossly normal bilaterally and moist oral mucous membranes Head and scalp: normocephalic Eye Common normals: PERRL Pupil: PERRL Neck & C-Spine Common normals: full ROM General: normal visual inspection Chest Common normals: inspection of chest normal Respiratory Common normals: normal respiratory effort, no retractions and no use of accessory muscles Back & Pelvis Lumbar spine/lower back: ROM limited, pain with ROM and straight leg raise negative bilaterally; no lumbar spinal tenderness, no paraspinal muscle tenderness and no paraspinal muscle spasm Sacroiliac joints: SI joints normal Other: significant axial low back pain, facet tenderness over L2-4 facet joints no radiculopathy on exam, strength 5/5 in BLE, sensation intact BLE bilateral SIJ exam negative florence(patricks), gaenslens, thigh thrust, compression test Extremity Common normals: normal to inspection and full ROM Neuro Common normals: oriented x3, CN's II-XII intact bilaterally, moves all extremities, no focal motor deficits, no sensory deficits noted and deep tendon reflexes 2+ bilaterally Sensorium/orientation: alert Motor exam: strength 5/5 throughout and no movement abnormalities noted Psych Common normals: mental status grossly normal, thought process normal, cooperative, affect normal, speech normal and activity/motor behavior normal Speech: normal speech Thought process: normal thought process Results Additional Findings Additional findings: If on a controlled substance or opioids, I have checked an [place] report on this patient and there are no aberrancies noted in the prescribing history.??If on a controlled substance or opioid a drug screen was completed and reviewed within the last year, and if there has not been a drug screen completed we ordered one today to monitor higher risk, state monitored pain medication use. As part of providing excellent, safe, comprehensive care, the following was completed at our patient's visit: 1. A medication reconciliation and review to ensure accurate knowledge of current/active medications, including asking our patients to inform us about any [id number]-fngettt medications or herbal remedies/nutritional supplements/alternative remedies. 2. A review to specifically ensure our patients have had annual screening for screening for depression, screening for tobacco use, and screening for unhealthy alcohol use. For concerning screenings had a discussion with the patient, provided patient education, and recommended follow-up with primary care provider when appropriate. If patient noted with a risk of falling, they received education on strength, gait, and balance training to prevent future risk of falling. Assessment and Plan Assessment and Plan (1) Lumbar spondylosis: Assessment and Plan: The patient has had over 3 months of moderate to severe low back pain with functional impairment and inadequate response to conservative care including NSAIDS (unless there are contraindication such as concurrent blood thinners), multiple oral or topical pain medications, and home exercise program/physical therapy.? Patient has completed >6 weeks of guided home exercise program and/or formal physical therapy program without relief of their symptoms.? I have reviewed the imaging of the lumbar spine and no red flags were identified.? We discussed the risks and benefits of the procedure with the patient, and we are NOT planning on using sedation as outlined in the guidelines from Medicare unless there is a documented reason that sedation would be strongly recommended.?? The procedure will be completed with fluoroscopic guidance.? (2) Osteoarthritis: (3) Chronic prescription opiate use: Assessment and Plan: I feel these medications are improving the patient's quality of life and allow them to tolerate activities of daily living as well as participate in recreational activity.? The patient does not report intolerable side effects. The patient is NOT opioid naive and non-pharmacologic and non-opioid treatment has failed to significantly relieve the patient's pain and improve functionality. The patient has a diagnosis that is related to a somatic or visceral pain etiology. ? ?? I reviewed with the patient the potential risks and side effects with the use of? opioid medications including but not limited to respiratory depression,? sedation, and even . I verified the patient has access to naloxone should? these effects occur. I advised the patient to avoid the use of any other? sedation substances including alcohol, THC, and benzodiazepines while? taking opioid medications due to the risk of compounding side effects and? detrimental outcomes. I reviewed the [employer], pain treatment agreement, urine? drug screen, and opioid start talking forms. The patient was advised to let? their family know they had Naloxone in case they would need to administer? the medication.? ?? A drug screen was completed within the last year, and no aberrancies were noted regarding their use of controlled substances. The patient understands they are subject to the terms and conditions of the pain contract that they have signed. ? ?? I have checked an [place] report on this patient today and there are no aberrancies noted in the prescribing history.? (4) Cervical spondylosis: (5) Lumbar degenerative disc disease: Plan cancel bilateral L3-4 L4-5 MBB #2 as patient did not get >80% improvement, change to left L2-3 L3-4 MBB x1 working towards RFA for chronic bilateral low back pain secondary to lumbar spondylosis/lumbar facet arthropathy continue current medications update UDS today continue aquatherapy as tolerated f/u after injection with Dr Mortensen per pt request
== END 2024-02-11 09:04 | disposition home or self-care (01) ==
LOC: PM 09:03
PROVIDERS: PCP Family Medicine; Visit Provider Nurse Practitioner
DX: M47.816 Spondylosis without myelopathy or radiculopathy, lumbar region (principal); M19.90 Unspecified osteoarthritis, unspecified site; Z79.891 Long term (current) use of opiate analgesic; M47.812 Spondylosis without myelopathy or radiculopathy, cervical region; M51.369 Other intervertebral disc degeneration, lumbar region without mention of lumbar back pain or lower extremity pain
CPT/HCPCS: G0463

== ENCOUNTER 2024-02-24 07:25 | Day surgery (SDC) | payer MEDICARE, SELFPAY ==
[2024-02-24 07:28] VITALS: BP 129/70; PULSE 71; TEMP 36.2; O2SAT 98
[2024-02-24 08:18] VITALS: BP 187/86; PULSE 80; O2SAT 97
[2024-02-24 08:19] VITALS: BP 180/86; PULSE 74; O2SAT 97
[2024-02-24] MEDS: BUPIVACAINE HCL 0.25% PF 25 MG/10 ML VIAL 8 ML INJ (08:23)
--- NOTE | 2024-02-24 09:32 | W.PM.PROCNOT ---
Date of procedure: 02/24/24 Pre-op diagnosis: Lumbar spondylosis Post-op diagnosis: same as pre-op Procedure: Bilateral Lumbar 2/3, 3/4 medial branch block Preop diagnosis includes pain secondary to spondylosis, Postop diagnosis same Under fluoroscopic guidance Solution injected: 2milliliters Marcaine 0.25% Anesthesia :none Immediate complications none Time out process compliant After informed consent obtained from the patient placed in the Prone proposition . area was prepped and draped in a sterile fashion using betadine .25 gauge spinal needle inserted over each of the above mentioned target areas . Jackson were directed towards the target under fluoroscopic guidance . after encountering each of the targets , no indication of intravascular intraneuronal or intrathecal needle tip placement. Then 0 .5 to 1 Milliliter was injected at each level. Jackson removed postoperatively. patient transferred to recovery in stable condition to be discharged home after meeting criteria Anesthesia: Local Surgeon: Christian Mortensen Condition: stable
== END 2024-02-24 08:28 | disposition home or self-care (01) ==
LOC: SURGOUT 07:26
PROVIDERS: PCP Family Medicine; Visit Provider Anesthesiology Pain Medicine
DX: M47.816 Spondylosis without myelopathy or radiculopathy, lumbar region (principal)
CPT/HCPCS: 64493; 64494; J0665

== ENCOUNTER 2024-03-16 13:27 | Outpatient (OUT) | payer MEDICARE, SELFPAY ==
--- NOTE | 2024-03-16 | CONS_ITS ---
CONSULTATION DATE: 03/16/2024 TO: Savanna Guajardo M.D. CHIEF COMPLAINT: Includes bilateral lower back pain. HISTORY: She rates the pain between 1-7/10 pain, sharp in character, increased with activities such as standing, walking and performing transitioning maneuvers. She feels most comfortable in the semi-recumbent position. Denies any change in bowel and bladder habits or new sensorimotor changes in the lower extremities. CURRENT MEDICATION: Includes diclofenac 50 mg b.i.d., tramadol 50 mg b.i.d. p.r.n., which she uses quite infrequently. She denies any side effects. Her JEAN on today?s visit is 24%. EXAMINATION: Notable for patient having no clinical radiculopathy or myelopathy involving the lower extremities. Patient did have significant pain with facet joint loading maneuvers from L2-L4. 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 She has undergone one diagnostic L2-3, L3-4 medial branch block. She reports that her pain was improved by at least 85% during the immediate post-procedural period, lasting for several hours with recurrence of pain back to baseline. RECOMMENDATIONS: I recommend we repeat this x1 to establish reliability. I have gone over the details of the procedure with the patient. All her questions answered. She agrees to proceed with the outlined plan. As part of providing excellent, safe, comprehensive care, the following was completed at our patient's visit: 1. A medication reconciliation and review to ensure accurate knowledge of current/active medications, including asking our patients to inform us about any [id number] medications or herbal remedies/nutritional supplements/alternative remedies. 2. A review to specifically ensure our patients have had annual screening for: elevated body mass index (BMI, see intake chart for exact total), tobacco use, screening for depression, and screening for unhealthy alcohol use. When screening is concerning, patients are provided with education and the specific recommendation to discuss the concerning health issue and treatment options with their primary care provider. NELSON
== END 2024-03-16 13:28 | disposition home or self-care (01) ==
PROVIDERS: PCP Family Medicine; Visit Provider Anesthesiology Pain Medicine
DX: M47.817 Spondylosis without myelopathy or radiculopathy, lumbosacral region (principal); G89.29 Other chronic pain
CPT/HCPCS: G0463

== ENCOUNTER 2024-03-30 09:05 | Day surgery (SDC) | payer MEDICARE, SELFPAY ==
--- OUTSIDE RECORDS SUMMARY | 2024-03-30 09:27 | XMS_ITS | CCD ---
Author Organization [facility] Care Team Providers Care Teradata Developer Name Role Phone GISELA, DR SAVANNA Willis [...] Unavailable HIGGINS, DR SAVANNA Willis Attending Unavailable HURLOCK, DR MINE Barriga Consulting Unavailable HIGGINS, DR [...] GUAN Attending Unavailable REBECA ROSENBERG Attending Unavailable Vane SALGUERO, Dulce Cooper Attending Unavailable Medications Current Medications Medication Drug Class(es) Dates Sig (Normalized) Sig (Original) atenolol 50 mg oral tablet (7 sources) beta-Adrenergic Tera Start: 09-17-2023 take 50 mg by mouth once daily Atenolol Active 50 MG PO Daily September 28, 2023 11:00pm Start: 03-28-2023 take 1 tablet by christian [...] take 1 tablet by mouth once daily Arco-3 Fish Oil 1 tab, Oral, Daily, Refill(s) [...] days Active meloxicam 7.5 mg oral tablet (6 sources) Nonsteroidal Anti-inflammatory Drug Start: 10-02-2023 End: 11-18-2023 take 7.5 mg by mouth once daily Meloxicam Active 7.5 MG PO Daily November 18, 2023 10:23am methylPREDNISolone 4 mg oral tablet (4 sources) Corticosteroid Start: 09-30-2023 take 1 tablet by mouth once Methylprednisolone (Medrol (Herb)) 4 mg tablets,dose pack Active 0 PO per package directions September 29, 2023 11:00pm PO PER PKG DIR for 6 days [...] Act marysol mupirocin 0.02 mg/mg topical ointment (3 sources) RNA Synthetase Inhibitor Antibacterial Start: 11-18-2023 Mupirocin Active 1 APPLIC TOPICAL Twice daily November 17, 2023 11:00pm predniSONE 20 mg oral tablet (5 sources) [...] Refills(s) 0, Pharmacy: [facility]/pharmacy #[id number], 56.1, kg, 09/17/23 8:03:00 EDT, Weight Dosing Start Date: 09/17/23 Stop Date: 10/17/23 Status: Ordered tiZANidine 2 mg oral tablet (4 sources) Central alpha-2 Adrenergic Agonist Start: 09-30-2023 take 2 mg by mouth every eight hours Tizanidine Active 2 MG PO Every 8 hours September 29, 2023 11:00pm traMADol (5 sources) Opioid Agonist traMADol HCl [...] (Original) diclofenac potassium 25 mg oral tablet (16 sources) Nonsteroidal Anti-inflammatory Drug Start: 10-02-2023 End: 10-02-2023 take 25 mg by mouth twice daily Diclofenac Potassium Discontinued 25 MG PO Twice daily October 02, 2023 10:30am October 02, 2023 3:24pm Start: 09-29-2023 End: 10-02-2023 take 25 mg by mouth four times daily Diclofenac Potassium Discontinued 25 MG PO Four times daily September 28, 2023 11:00pm October 02, 2023 10:31am Start: 09-17-2023 diclofenac sod ium 50 mg Oral EC Tab 50 mg = 1 tab(s), Oral Start Date: 09/17/23 Status: Ordered take 1 tablet by christian th four times daily at mealtime as needed Diclofenac Potassium 25 MG 1 tablet with food or milk as needed Orally Four times a day Active 24 hr metoprolol succinate 25 mg extended release oral capsule (11 sources) beta-Adrenergic Tera Start: 09-29-2023 End: 09-30-2023 take 25 mg by mouth once daily Metoprolol Succinate Discontinued 25 MG PO Daily September 28, 2023 11:00pm September 30, 2023 1:41pm Metoprolol Succi olena 25 MG 1 tablet once a day Active triamcinolone acetonide 40 mg/ml injectable suspension (10 sources) Corticosteroid Start: 09-25-2022 Kenalog-40 Jan, 60 mg Problems Active Problems Problem Classification Problem Date Documented Date Episodic/Chronic Calculus of urinary tract (12 sources) Ureteric stone; Translations: [Calculus of ureter] [...] Onset: 10-02-2022 Episodic Open wounds of extremities (3 sources) Laceration of left lower leg; Translations: [...] conditions (not mental disorders or infectious disease) (10 sources) Encounter for screening mammogram for malignant neoplasm of breast; Translations: [Patient encounter status] Onset: 11-07-2021 Episodic Other skin disorders (5 sources) Actinic keratosis; Translations: [Actinic keratosis] Episodic Other upper respiratory disease (9 sources) Seasonal allergic rhinitis; Translations: [Other seasonal [...] Spondylosis; intervertebral disc disorders; other back problems (14 sources) Cervicalgia; Translations: [Lumbago] Onset: 09-05-2022 Episodic [...] CT Reporton 10-15-2023 RAD - CT Report [id number]# 1.00TIFF Najma Keenan [facility] [...] Vitamins oral capsule) omega-3 polyunsaturated fatty acids (Arco-3 Fish Oil) tamsulosin (Flomax 0.4 mg Cap) [...] URL When: Where: [facility] [address] , [place] [address] [phone] Medications What How Much When Instructions Unchanged [...] or concerns Unchanged omega-3 polyunsaturated fatty acids (Arco-3 Fish Oil) 1 tab By Mouth Every [...] [facility] Patient Educationon 10-13-19 24 Patient Education [...] these instructions at home: Medicines ? Take vziw-hkb-xiqwmij and prescription medicines only as told by [...] provider. Document Revised: 12/31/2021 Document Reviewed: 12/31/2021 Else[employer] Dot Payment Patient Education ? 2022 [employer]. [facility] Urology Office/Clinic Noteon 10-13-2023 Urology Office/Clinic [...] pass, required surgery 2 years ago in [place], [place]. Was told at this time that she had a puncture in her kidney that would heal. Follow-up With When Contact Information SHANNON SALGUERO, Roman Mitchell, URL [facility] [address], [place] [address]- [phone] Additional Instructions: f/u pending CT scan Patient Education Kidney Stones, Ajan-cg-Akfk Anabella Webber, personally scribed for Dr. Guan [...] Vitamins oral capsule, 1 cap(s), Oral, Daily Arco-3 Fish Oil, 1 tab, Oral, Daily Osteo [...] virus vaccine, inactivated 02/14/2023 Recorded SARS-CoV-2 (COVID-19) [id number] 03/12/2022 Recorded 2023-10-13: TPV80 influenza virus vaccine, inactivated 02/28/2022 Recorded SARS-CoV-2 (COVID-19) mRNA-1273 vaccine 11/09/2021 Recorded 2023-10-13: TPV80 SARS-CoV-2 (COVID-19) mRNA-12 (more content not included)... Normal [facility] Comment on above: Result Comment: Elec tronically Signed By: Roman GUAN MD\.br\Date and Time Signed: 10/13/23 13:41 EDT\.br\Electronically Co-Signed By: Anabella Villalta\.br\Date and Time Co-Signed: 10/13/23 13:39 EDT RAD - MISCon 10-12-2023 RAD - MIS [id number] #1.00TIFF Normal [facility] ED Note-Physicianon 09-18-19 ED Note-Physician [id number] 8#1.00TIFF Normal [facility] Formson 09-18-2023 Forms [id number] #1.00TIFF Normal [facility] RAD - CT Reporton 09-18-2023 RAD - CT Report [id number] 8#1.00TIFF Normal [facility] RAD - MISCon 09-18-2023 RAD - MISC [id number] 1#1.00TIFF Normal [facility] RAD - MIS [id number]# 1.00TIFF Normal [facility] RAD - MISC [id number] 9#1.00TIFF Normal [facility] Ambulatory Visit Summaryon 0 09-17-2023 [...] Vitamins oral capsule) omega-3 polyunsaturated fatty acids (Arco-3 Fish Oil) zolmitriptan (Zomig 5 mg oral [...] SALGUERO, Roman Mitchell Where: [facility] Patient Educationon 09-17-19 24 Patient Education Urology [...] these instructions at home: Medicines ? Take hzjf-nvr-lvpvncn and prescription medicines only as told by [...] recommendations from (more content not included)... Normal [facility] Urology Office/Clinic Noteon 09-17-2023 Urology Office/Clinic Note Chief Complaint New pt HPI Staff 1 week follow up w/[facility]-09/15/23-[facility] Pt was seen at [facility] on 09/09/23 due to abdominal pain [...] yo female new pt following up to [facility] ED visit 09/09/23 due to intermittent L [...] pass, required surgery 2 years ago in [place]. Was told at this time that [...] [address] ct[address] SEs discussed. Rx sent to [facility] [place]. -High fluid intake. -Pt to call or go to the ER if he were to experience fever, shaking, chills, uncontrolled nausea, vomiting, or pain. Follow-up With When Contact Information SHANNON SALGUERO, Roman Mitchell, URL [facility] [address] [place] [address]- Additional Instructions: 3 weeks with [facility] Patient [...] Vitamins oral capsule, 1 cap(s), Oral, Daily Arco-3 Fish Oil, 1 tab, Oral, Daily Osteo [...] Lab Results (more content not included)... Normal [facility] Comment on above: Result Comment: Elec tronically Signed By: Roman GUAN MD\.br\Date and Time Signed: 09/17/23 08:41 EDT\.br\Electronically Co-Signed By: Cynthia Jones\.br\Date and Time Co-Signed: 09/17/23 08:39 EDT Basophils Auto (Bld) [#/Vol] on 09-09-2023 Basophils (Bld) [#/Vol] 0.0 10 3/uL 0.0-0.1 [facility] Basophils/100 WBC Auto (Bld) on 09-09-2023 Basophils/100 WBC (Bld) 0.4 % 0.2-2.0 [facility] Casts typing in urine sedime nt by light microscopyon 09-09-2023 Casts LM Nom (Urine sed) NONE SEEN #/LPF NONE SEEN [facility] Eosinophils/100 WBC Auto (Bl d)on 09-09-2023 Eosinophils/100 WBC (Bld) 1.1 % 0.9-7.0 [facility] Erythrocyte distribution wid th Auto (RBC) [Ratio]on 09-09-2023 Erythrocyte distribution width (RBC) [Ratio] 13.0 % 11.0-15.0 [facility] Estimated glomerular filtrat ion rate (GFR) non- Americanon 09-09-2023 GFR/1.73 sq M.predicted among non-blacks MDRD (S/P/Bld) [Vol rate/Area] 52 mL/min/{1.73_m2} Low >=60 [facility] Globulin Calc (S) [Mass/Vol] on 09-09-2023 Globulin (S) [Mass/Vol] 3.5 g/dL [facility] Hematocrit Auto (Bld) [Volum e fraction]on 09-09-2023 Hematocrit (Bld) [Volume fraction] 39.0 % 36.0-48.0 [facility] Hemoglobin [Mass/volume] in Bloodon 09-09-2023 Hemoglobin (Bld) [Mass/Vol] 12.6 g/dL 12.0-16.0 [facility] Laboratory - Chemistry and C hemistry - challengeon 09-09-2023 Albumin [Mass/Vol] 3.6 g/dL 3.4-5.0 [facility] ALP [Catalytic activity/Vol] 74 U/L 46-116 [facility] ALT [Catalytic activity/Vol] 30 U/L 14-59 [facility] AST [Catalytic activity/Vol] 24 U/L 15-37 [facility] Bilirubin [Mass/Vol] 0.5 mg/dL 0.2-1.0 [facility] Calcium [Mass/Vol] 9.8 mg/dL 8.5-10.1 [facility] Chloride [Moles/Vol] 102 mmol/L 98-107 [facility] CO2 [Moles/Vol] 31.2 mmol/L 21.0-32.0 [facility] Creatinine [Mass/Vol] 1.01 mg/dL 0.55-1.02 [facility] GFR/1.73 sq M.predicted MDRD (S/P/Bld) [Vol rate/Area] mL/min/{1.73_m2} >=60 [facility] Glucose [Mass/Vol] 100 mg/dL 74-106 [facility] Lipase [Catalytic activity/Vol] 25.0 U/L 16.0-77.0 [facility] Potassium [Moles/Vol] 3.9 mmol/L 3.5-5.1 [facility] Protein [Mass/Vol] 7.1 g/dL 6.4-8.2 [facility] Sodium [Moles/Vol] 140 mmol/L 136-145 [facility] Urea nitrogen [Mass/Vol] 22.0 mg/dL High 7.0-18.0 [facility] Urea nitrogen/Creatinine [Mass ratio] 21.8 mg/mg [facility] Bilirubin Ql (U) Negative NEGATIVE [facility] Glucose (U) [Mass/Vol] Negative NEGATIVE [facility] Ketones Ql (U) Negative NEGATIVE [facility] pH (U) 6.0 [pH] 5.0-9.0 [facility] Specific gravity (U) [Rel density] 1.020 1.005-1.025 [facility] Urobilinogen Qn (U) 0.2 {Sosa'U}/dL 0.2-1.0 [facility] Laboratory - Hematology and Cell countson 09-09-2023 Immature granulocytes/100 WBC (Bld) 0.3 % 0.0-0.5 [facility] Laboratory - Specimen inform ationon 09-09-2023 Appearance (U) CLEAR CLEAR [facility] Color (U) DK. YELLOW YELLOW [facility] Laboratory - Urinalysison Amorphous sediment LM Ql (Urine sed) RARE [facility] Leukocyte esterase Test strip Ql (U) TRACE Abnormal NEGATIVE [facility] Nitrite Ql (U) Negative NEGATIVE [facility] Protein Ql (U) Negative NEG/TRACE [facility] Leukocytes [#/volume] correc bill for nucleated erythrocytes in Blood by Automated counon 09-09-2023 WBC corrected for nucl RBC Auto (Bld) [#/Vol] 10.7 10 3/uL 4.0-11.0 [facility] Lymphocytes Auto (Bld) [#/Vo l]on 09-09-2023 Lymphocytes (Bld) [#/Vol] 1.5 10 3/uL 1.2-3.8 [facility] Lymphocytes/100 WBC Auto (Bl d)on 09-09-2023 Lymphocytes/100 WBC (Bld) 13.7 % Low 20.5-60.0 [facility] MCH Auto (RBC) [Entitic mass ]on 09-09-2023 MCH (RBC) [Entitic mass] 31.2 pg 26.7-34.0 [facility] MCHC Auto (RBC) [Mass/Vol]on 09-09-2023 MCHC (RBC) [Mass/Vol] 32.3 g/dL 29.9-35.2 [facility] MCV Auto (RBC) [Entitic vol] on 09-09-2023 MCV (RBC) [Entitic vol] 96.5 fL 81.0-99.0 [facility] Monocytes Auto (Bld) [#/Vol] on 09-09-2023 Monocytes (Bld) [#/Vol] 1.0 10 3/uL High 0.3-0.8 [facility] Monocytes/100 WBC Auto (Bld) on 09-09-2023 Monocytes/100 WBC (Bld) 9.5 % 1.7-12.0 [facility] Mucus LM Ql (Urine sed)on Mucus Ql (Urine sed) NONE SEEN NONE SEEN [facility] Neutrophils Auto (Bld) [#/Vo l]on 09-09-2023 Neutrophils (Bld) [#/Vol] 8.0 10 3/uL High 1.4-6.5 [facility] Neutrophils/100 WBC Auto (Bl d)on 09-09-2023 Neutrophils/100 WBC (Bld) 75.0 % 43.0-75.0 [facility] No Panel Informationon 09-08 Eosinophils # (Auto) 0.1 10 3/uL 0.0-0.7 [facility] Immature Granulocyte # (Auto) 0.03 10 3/uL 0.00-0.03 [facility] Urine Bacteria NONE SEEN #/HPF NONE SEEN [facility] Urine Culture Reflexed NO [facility] Urine Microscopic Review YES [facility] Urine Occult Blood LARGE Abnormal NEGATIVE [facility] Urine Other Crystals Seen #/HPF Abnormal None Seen [facility] Urine RBC 10-20 #/HPF Abnormal 0-2 [facility] Urine Squamous Epithelial Cells NONE SEEN #/LPF NONE/RARE [facility] Urine Uric Acid Crystals FEW [facility] Urine WBC 2-5 #/HPF Abnormal NONE SEEN [facility] Platelet mean volume Auto (B ld) [Entitic vol]on 09-09-2023 Platelet mean volume (Bld) [Entitic vol] 9.5 fL 9.5-13.5 [facility] Platelets Auto (Bld) [#/Vol] on 09-09-2023 Platelets (Bld) [#/Vol] 240 10 3/uL 150-450 [facility] RBC Auto (Bld) [#/Vol]on RBC (Bld) [#/Vol] 4.04 10 6/uL Low 4.20-5.40 [facility] Serum or plasma albumin/glob ulin mass ratioon 09-09-2023 Albumin/Globulin [Mass ratio] 1.0 {ratio} [facility] Serum or plasma anion gap de terminationon 09-09-2023 Anion gap [Moles/Vol] 10.7 mmol/L [facility] XR RIBS LT PA Stephen 3 XR [...] by: PB GENAO Date: 2022-10-02 11:51 Normal [facility] XR CSPINE 2_3 [...] recommended for better evaluation. Electronically authenticated by: IASEL GRIFFIN Date: 2022-09-05 15:58 Normal [facility] CBC AUTO DIFFon 12-31-2021 BASO # 0.0 103/ul Normal 0.0-0.1 [facility] Comment on above: Performed By: #### C BC #### [facility] [address] [address] [address] Radha Land Basophils/100 WBC (Bld) 0.2 % Normal 0.2-2.0 [facility] Comment on above: Performed By: #### C BC #### [facility] [address] [place] [address] Dr. Radha Land EO # 0.2 103/ul Normal 0.0-0.7 [facility] Comment on above: Performed By: #### C BC #### [facility] [address] [place] [address] Dr. Radha Land Eosinophils/100 WBC (Bld) 1.7 % Normal 0.9-7.0 [facility] Comment on above: Performed By: #### C BC #### [facility] [address] [place] [address] Dr. Radha Land Erythrocyte distribution width (RBC) [Ratio] 13.4 % Normal 11.0-15.0 [facility] Comment on above: Performed By: #### C BC #### [facility] [address] [place] [address] Dr. Radha Land Hematocrit (Bld) [Volume fraction] 40.9 % Normal 36.0-48.0 [facility] Comment on above: Performed By: #### C BC #### [facility] [address] [place] [address] Dr. Radha Land Hemoglobin (Bld) [Mass/Vol] 13.1 g/dL Normal 12.0-16.0 [facility] Comment on above: Performed By: #### C BC #### [facility] [address] [place] [address] Dr. Radha Land IG # 0.05 10e3/ul Critically high 0.00-0.03 [facility] Comment on above: Performed By: #### C BC #### [facility] [address] [place] [address] Dr. Radha Land IG % 0.4 % Normal 0.0-0.5 [facility] Comment on above: Performed By: #### C BC #### [facility] [address] [place] [address] Dr. Radha Land LYMPH # 1.4 103/ul Normal 1.2-3.8 [facility] Comment on above: Performed By: #### C BC #### [facility] [address] [address] [address] Radha Land Lymphocytes/100 WBC (Bld) 10.8 % Critically low 20.5-60.0 [facility] Comment on above: Performed By: #### C BC #### [facility] [address] [place] [address] Dr. Radha Land MANUAL DIFF REQ NO Normal [facility] Comment on above: Performed By: #### C BC #### [facility] [address] [place] [address] Dr. Radha Land MCH (RBC) [Entitic mass] 31.5 pg Normal 26.7-34.0 [facility] Comment on above: Performed By: #### C BC #### [facility] [address] [place] [address] Dr. Radha Land MCHC (RBC) [Mass/Vol] 32.0 g/dL Normal 29.9-35.2 [facility] Comment on above: Performed By: #### C BC #### [facility] [address] [place] [address] Dr. Radha Land MCV (RBC) [Entitic vol] 98.3 fL Normal 81.0-99.0 [facility] Comment on above: Performed By: #### C BC #### [facility] [address] [place] [address] Dr. Radha Land MONO # 1.3 103/ul Critically high 0.3-0.8 [facility] Comment on above: Performed By: #### C BC #### [facility] [address] [place] [address] Dr. Radha Land Monocytes/100 WBC (Bld) 9.7 % Normal 1.7-12.0 [facility] Comment on above: Performed By: #### C BC #### [facility] [address] [place] [address] Dr. Radha Land NEUT # 10.2 103/ul Critically high 1.4-6.5 [facility] Comment on above: Performed By: #### C BC #### [facility] [address] [address] [address] Radha Land Neutrophils/100 WBC (Bld) 77.2 % Critically high 43.0-75.0 [facility] Comment on above: Performed By: #### C BC #### [facility] [address] [address] [address] Radha Land Platelet mean volume (Bld) [Entitic vol] 9.7 fL Normal 9.5-13.5 [facility] Comment on above: Performed By: #### C BC #### [facility] [address] [address] [address] Radha Land PLT 235 103/ul Normal 150-450 [facility] Comment on above: Performed By: #### C BC #### [facility] [address] [address] [address] Radha Land RBC 4.16 106/ul Critically low 4.20-5.40 [facility] Comment on above: Performed By: #### C BC #### [facility] [address] [address] [address] Radha Land WBC 13.2 103/ul Critically high 4.0-11.0 [facility] Comment on above: Performed By: #### C BC #### [facility] [address] [address] [address] Radha Land SED RATE WESTERGRENon 2021 SED RATE 35 mm/hr Critically high <=30 [facility] Comment on above: Performed By: #### S EDR #### [facility] [address] [address] [address] Radha Land CBC AUTO DIFFon 11-07-2021 BASO # 0.0 103/ul Normal 0.0-0.1 [facility] Comment on above: Performed By: #### C BC ####[facility] [address] [address]Dr. Radha Land Basophils/100 WBC (Bld) 0.3 % Normal 0.2-2.0 [facility] Comment on above: Performed By: #### C BC ####[facility] [address] [id number][address] Radha Land EO # 0.2 103/ul Normal 0.0-0.7 [facility] Comment on above: Performed By: #### C BC ####[facility] [address] [id number]. Radha Land Eosinophils/100 WBC (Bld) 3.3 % Normal 0.9-7.0 [facility] Comment on above: Performed By: #### C BC ####[facility] [address] [address]Dr. Radha Land Erythrocyte distribution width (RBC) [Ratio] 13.2 % Normal 11.0-15.0 [facility] Comment on above: Performed By: #### C BC ####[facility] [address] [address]Dr. Radha Land Hematocrit (Bld) [Volume fraction] 41.9 % Normal 36.0-48.0 [facility] Comment on above: Performed By: #### C BC ####[facility] [address] [address]Dr. Radha Land Hemoglobin (Bld) [Mass/Vol] 13.4 g/dL Normal 12.0-16.0 [facility] Comment on above: Performed By: #### C BC ####[facility] [address] [address]Dr. Radha Land IG # 0.01 10e3/ul Normal 0.00-0.03 [facility] Comment on above: Performed By: #### C BC ####[facility] [address] [address]Dr. Radha Land IG % 0.2 % Normal 0.0-0.5 [facility] Comment on above: Performed By: #### C BC ####[facility] [address] [address]Dr. Radha Land LYMPH # 1.6 103/ul Normal 1.2-3.8 [facility] Comment on above: Performed By: #### C BC ####[facility] [address] [id number][address] Radha Land Lymphocytes/100 WBC (Bld) 27.5 % Normal 20.5-60.0 [facility] Comment on above: Performed By: #### C BC ####[facility] [address] [id number][address] Radha Land MANUAL DIFF REQ NO Normal [facility] Comment on above: Performed By: #### C BC ####[facility] [address] [id number][address] Radha Land MCH (RBC) [Entitic mass] 31.2 pg Normal 26.7-34.0 [facility] Comment on above: Performed By: #### C BC ####[facility] [address] [address]Dr. Radha Land MCHC (RBC) [Mass/Vol] 32.0 g/dL Normal 29.9-35.2 [facility] Comment on above: Performed By: #### C BC ####[facility] [address] [place] [address]Dr. Radha Emery MCV (RBC) [Entitic vol] 97.7 fL Normal 81.0-99.0 [facility] Comment on above: Performed By: #### C BC ####[facility] [address] [place], [place] [address]Dr. Radha Emery MONO # 0.7 103/ul Normal 0.3-0.8 [facility] Comment on above: Performed By: #### C BC ####[facility] [address] [place] [address]Dr. Radha Emery Monocytes/100 WBC (Bld) 12.4 % Critically high 1.7-12.0 [facility] Comment on above: Performed By: #### C BC ####[facility] [address] [place] [address]Dr. Jacquelyncharlotte Emery NEUT # 3.2 103/ul Normal 1.4-6.5 [facility] Comment on above: Performed By: #### C BC ####[facility] [address] [place], [place] [address]Dz. Radha Land Neutrophils/100 WBC (Bld) 56.3 % Normal 43.0-75.0 [facility] Comment on above: Performed By: #### C BC ####[facility] [address] [place], [place] [address]Kk. Radha Land Platelet mean volume (Bld) [Entitic vol] 9.4 fL Critically low 9.5-13.5 [facility] Comment on above: Performed By: #### C BC ####[facility] [address] [place], [place] [address]Rx. Radha Land PLT 226 103/ul Normal 150-450 [facility] Comment on above: Performed By: #### C BC ####[facility] [address] [place], [place] [address]Vy. Radha Land RBC 4.29 106/ul Normal 4.20-5.40 [facility] Comment on above: Performed By: #### C BC ####[facility] [address] [place], [place] [address]Nr. Radha Land WBC 5.7 103/ul Normal 4.0-11.0 [facility] Comment on above: Performed By: #### C BC ####[facility] [address] [place], [place] [address]Vp. Radha Land LIPID PROFILEon 11-07-2021 CHOL-HDL RATIO NORM SEE BELOW Normal [facility] Comment on above: Result Comment: 3.3 - 4.4 LOW RISK 4.4 - 7.1 AVERAGE RISK 7.1 - 11.0 MODERATE RISK >11.0 HIGH RISK Performed By: #### L IPID, CMP #### [facility] [address] [place], [place] [address] Dr. Radha Land Cholesterol [Mass/Vol] 257 mg/dL Critically high <=200 [facility] Comment on above: Performed By: #### L IPID, CMP #### [facility] [address] [place], [place] [address] Dr. Radha Land Cholesterol in HDL [Mass/Vol] 76 mg/dL Critically high 40-60 [facility] Comment on above: Performed By: #### L IPID, CMP #### [facility] [address] [place] [address] [address] Radha Land Cholesterol in LDL [Mass/Vol] 163.8 mg/dL Normal [facility] Comment on above: Performed By: #### L IPID, CMP #### [facility] [address] [place] [address] [address] Radha Land Cholesterol.total/Cho lesterol in HDL [Mass ratio] 3.4 {ratio} Normal [facility] Comment on above: Performed By: #### L IPID, CMP #### [facility] [address] [place] [address] [address] Radha Land HDL NORMAL > or = 60 mg/dl - LOW CARDIOVASCULAR RISK <40 mg/dl - HIGH CARDIOVASCULAR RISK Normal [facility] Comment on above: Performed By: #### L IPID, CMP #### [facility] [address] [place] [address] [address] Radha Land LDL CALC NORMAL SEE BELOW Normal [facility] Comment on above: Result Comment: <100 mg/dl OPTIMAL 100 - 129 mg/dl NEAR OR ABOVE OPTIMAL 130 - 159 mg/dl BORDERLINE HIGH 160 - 189 mg/dl HIGH >190 mg/dl VERY HIGH Performed By: #### L IPID, CMP #### [facility] [address] [place] [address] [address] Radha Land Triglyceride [Mass/Vol] 86 mg/dL Normal <=150 [facility] Comment on above: Performed By: #### L IPID, CMP #### [facility] [address] [place] [address] [address] Radha Land VLDL CALC 17.2 mg/dL Normal [facility] Comment on above: Performed By: #### L IPID, CMP #### [facility] [address] [place] [address] Dr. Radha aLnd MG MAMM SCREEN 3D GIANCARLO CADon 11-07-2021 MG MAMM SCREEN 3D GIANCARLO CAD Patient: EDUARDO LEA. Exam Date: 11/07/2021 : 1940 Gender:F Ordering : DR SAVANNA HIGGINS M.D. Admission #: [id number] Family : Order #: [id number] CLICK HERE TO VIEW EXAM RADIOLOGY REPORT [...] at age 47. LOCATION: [facility] BREAST COMPOSITION: Extremely dense, which lowers [...] Arriaga MD on 11/07/2021 at 11:21 Normal [facility] PROF 14(COMP METB)on 022 Albumin [Mass/Vol] 3.6 g/dL Normal 3.4-5.0 [facility] Comment on above: Performed By: #### L IPID, CMP #### [facility] [address] [place] [address] Dr. Radha Land Albumin/Globulin [Mass ratio] 0.9 {ratio} Normal [facility] Comment on above: Performed By: #### L IPID, CMP #### [facility] [address] [place] [address] [address] Radha Land ALP [Catalytic activity/Vol] 79 U/L Normal 46-116 [facility] Comment on above: Performed By: #### L IPID, CMP #### [facility] [address] [place], [place] [address] Dr. Radha Land ALT [Catalytic activity/Vol] 32 U/L Normal 14-59 [facility] Comment on above: Performed By: #### L IPID, CMP #### [facility] [address] [place] [address] [address] Radha Land Anion gap [Moles/Vol] 6.1 mmol/L Normal [facility] Comment on above: Performed By: #### L IPID, CMP #### [facility] [address] [place] [address] [address] Radha Land AST [Catalytic activity/Vol] 28 U/L Normal 15-37 [facility] Comment on above: Performed By: #### L IPID, CMP #### [facility] [address] [place] [address] [address] Radha Land Bilirubin [Mass/Vol] 0.6 mg/dL Normal 0.2-1.0 [facility] Comment on above: Performed By: #### L IPID, CMP #### [facility] [address] [place] [address] [address] Radha Land Calcium [Mass/Vol] 9.1 mg/dL Normal 8.5-10.1 [facility] Comment on above: Performed By: #### L IPID, CMP #### [facility] [address] [place] [address] [address] Radha Land Chloride [Moles/Vol] 104 mmol/L Normal 98-107 [facility] Comment on above: Performed By: #### L IPID, CMP #### [facility] [address] [place] [address] [address] Radha Land CO2 [Moles/Vol] 31.0 mmol/L Normal 21.0-32.0 [facility] Comment on above: Performed By: #### L IPID, CMP #### [facility] [address] [place] [address] [address] Radha Land Creatinine [Mass/Vol] 0.86 mg/dL Normal 0.55-1.02 [facility] Comment on above: Performed By: #### L IPID, CMP #### [facility] [address] [place] [address] [address] Radha Land EGFR-AF FAROESE >60 Normal >=60 [facility] Comment on above: Performed By: #### L IPID, CMP #### [facility] [address] [place] [address] [address] Radha Land EGFR-NON AF FAROESE >60 Normal >=60 [facility] Comment on above: Performed By: #### L IPID, CMP #### [facility] [address] [place] [address] [address] Radha Land Globulin (S) [Mass/Vol] 4.1 g/dL Normal [facility] Comment on above: Performed By: #### L IPID, CMP #### [facility] [address] [place] [address] [address] Radha Land Glucose [Mass/Vol] 89 mg/dL Normal 74-106 [facility] Comment on above: Performed By: #### L IPID, CMP #### [facility] [address] [place] [address] [address] Radha Land Potassium [Moles/Vol] 4.1 mmol/L Normal 3.5-5.1 [facility] Comment on above: Performed By: #### L IPID, CMP #### [facility] [address] [place] [address] [address] Radha Land Protein [Mass/Vol] 7.7 g/dL Normal 6.4-8.[address] [facility] Comment on above: Performed By: #### L IPID, CMP #### [facility] [address] [place] [address] [address] Radha Land Sodium [Moles/Vol] 137 mmol/L Normal 136-[address] [facility] Comment on above: Performed By: #### L IPID, CMP #### [facility] [address] [place] [address] [address] Radha Land Urea nitrogen [Mass/Vol] 12.0 mg/dL Normal 7.0-18.0 [facility] Comment on above: Performed By: #### L IPID, CMP #### [facility] [address] [place] [address] [address] Radha Land Urea nitrogen/Creatinine [Mass ratio] 14.0 mg/mg Normal [facility] Comment on above: Performed By: #### L IPID, CMP #### [facility] [address] [place] [address] [address] Radha Land Vital Signs Date Time Vital Sign Value Performing Clinician Facility 11-18-2023 10:53-0400 Body height 165.1 cm [facility] 11-18-2023 10:53-0400 Body mass index (BMI) [Ratio] 20.5 kg/m2 [facility] 11-18-2023 10:53-0400 Body weight 55.79 kg [facility] 11-18-2023 10:53-0400 Diastolic blood pressure 55 mm[Hg] [facility] 11-18-2023 10:53-0400 Heart rate 65 /min [facility] 11-18-2023 10:53-0400 Systolic blood pressure 132 mm[Hg] [facility] 11-06-2023 11:11-0400 Body height 165.1 cm [facility] 11-06-2023 11:11-0400 Body mass index (BMI) [Ratio] 20.2 kg/m2 [facility] 11-06-2023 11:11-0400 Body weight 55.33 kg [facility] 11-06-2023 11:11-0400 Diastolic blood pressure 67 mm[Hg] [facility] 11-06-2023 11:11-0400 Heart rate 61 /min [facility] 11-06-2023 11:11-0400 Systolic blood pressure 124 mm[Hg] [facility] 10-13-2023 12:31-0400 Blood Pressure Location Roman GUAN [facility] 10-13-2023 12:31-0400 Diastolic blood pressure 78 mm[Hg] Roman GUAN [facility] 10-13-2023 12:31-0400 Heart rate 80 /min Roman GUAN [facility] 10-13-2023 12:31-0400 Respiratory rate 16 /min Roman GUAN [facility] 10-13-2023 12:31-0400 Systolic blood pressure 134 mm[Hg] Roman GUAN [facility] 09-30-2023 14:31-0400 Body height 165.1 cm [facility] 09-30-2023 14:31-0400 Body mass index (BMI) [Ratio] 20.5 kg/m2 [facility] 09-30-2023 14:31-0400 Body weight 55.79 kg [facility] 09-30-2023 14:31-0400 Diastolic blood pressure 62 mm[Hg] [facility] 09-30-2023 14:31-0400 Heart rate 64 /min [facility] 09-30-2023 14:31-0400 Systolic blood pressure 104 mm[Hg] [facility] 09-17-2023 08:00-0400 Blood Pressure Location Roman GUAN [facility] 09-17-2023 08:00-0400 Diastolic blood pressure 80 mm[Hg] Roman GUAN [facility] 09-17-2023 08:00-0400 Heart rate 64 /min Romanarminda GUAN [facility] 09-17-2023 08:00-0400 Systolic blood pressure 132 mm[Hg] Romanarminda GUAN [facility] 01-10-2023 09:45-0400 Body height 165.1 cm Savanna Higgins Other [email or web address] Other 01-10-2023 09:45-0400 Body mass index (BMI) [Ratio] 20.87 kg/m2 Savanna Higgins Other [email or web address] Other 01-10-2023 09:45-0400 Body weight 56.88 kg Savanna Higgins Other [email or web address] Other 01-10-2023 09:45-0400 Diastolic blood pressure 78 mm[Hg] Savanna Higgins Other [email or web address] Other 01-10-2023 09:45-0400 Systolic blood pressure 142 mm[Hg] Savanna Higgins Other [email or web address] Other 10-28-2022 08:30-0400 Body height 165.1 cm Savanna Higgins Other [email or web address] Other 10-28-2022 08:30-0400 Body mass index (BMI) [Ratio] 20.47 kg/m2 Savanna Higgins Other [email or web address] Other 10-28-2022 08:30-0400 Body weight 55.79 kg Savanna Higgins Other [email or web address] Other 10-28-2022 08:30-0400 Diastolic blood pressure 47 mm[Hg] Savanna Higgins Other [email or web address] Other 10-28-2022 08:30-0400 Systolic blood pressure 124 mm[Hg] Savanna Higgins Other [email or web address] Other Encounters Encounter Date Encounter Type Care Provider Facility Start: 10-15-2024 ambulatory Roman Mota ty:[facility] [place] Start: 03-16-2024 End: 03-16-2024 ambulatory [facility] Work Phone: Start: 03-16-2024 End: 03-16-2024 Patient encounter procedure [facility] Work Phone: Start: 02-02-2024 End: 02-02-2024 ambulatory Dulce Cifuentes MD Facility: [facility] Start: 01-05-2024 End: 01-05-2024 ambulatory REBECA ROSENBERG Not Available Start: 12-09-2023 End: 12-09-2023 ambulatory [facility] Work Phone: Start: 12-09-2023 End: 12-09-2023 Patient encounter procedure [facility] Work Phone: Start: 11-18-2023 End: 11-18-2023 ambulatory [facility] Work Phone: Start: 11-18-2023 End: 11-18-2023 Patient encounter procedure [facility] Work Phone: Start: 11-10-2023 Patient encounter procedure [facility] Start: 11-06-2023 End: 11-06-2023 Patient encounter procedure [facility] Work Phone: Start: 10-13-2023 End: 10-13-2023 ambulatory Roman GUAN Facility:[facility] Start: 10-13-2023 End: 10-13-2023 Patient encounter procedure Roman GUAN [facility] Start: 09-30-2023 End: 09-30-2023 ambulatory [facility] Work Phone: Start: 09-30-2023 End: 09-30-2023 Patient encounter procedure [facility] Work Phone: Start: 09-17-2023 End: 09-17-2023 ambulatory Roman GUAN Facility:[facility] [place] Start: 09-17-2023 End: 09-17-2023 Patient encounter procedure Roman GUAN [facility] [place] Start: 09-11-2023 ambulatory Roman GUAN Facility :[facility] Start: 09-09-2023 Non-patient / Non-visit [facility] Work Phone: Start: 08-26-2023 End: 08-26-2023 ambulatory [facility] Work Phone: Start: 08-26-2023 End: 08-26-2023 Patient encounter procedure [facility] Work Phone: Start: 03-28-2023 End: 03-28-2023 ambulatory Savanna Higgins Other [email or web address] Other Start: 03-28-2023 Telephone encounter Savanna Higgins [facility] Start: 01-31-2023 End: 01-31-2023 ambulatory Savanna Higgins Other [email or web address] Other Start: 01-31-2023 Nursing evaluation o f patient and report Savanna Higgins [facility] Start: 01-14-2023 End: 01-14-2023 ambulatory Savanna Higgins Other [email or web address] Other Start: 01-14-2023 Telephone encounter Savanna Gisela [facility] Start: 01-10-2023 End: 01-10-2023 ambulatory Savanna Higgins Other [email or web address] Other Start: 01-10-2023 Office outpatient visit 15 minutes Savanna Higgins [facility] Start: 10-28-2022 End: 10-28-2022 ambulatory Savanna Higgins Other [email or web address] Other Start: 10-28-2022 Patient encounter procedure Savanna Gisela [facility] Start: 10-24-2022 End: 10-24-2022 ambulatory Savanna Higgins Other [email or web address] Other Start: 10-24-2022 Telephone encounter Savanna Higgins [facility] Start: 10-08-2022 End: 10-08-2022 ambulatory AJ [...] 12-31-2021 Adult health examination Savanna Higgins Other [email or web address] Other Start: 12-31-2021 End: 01-01-[address] [...] Detail Author Diagnostic radiograp hy of abdomen [facility] MG Breast - bilatera l Screening [facility] Patient Education Low back pain in adults [facility] Work Phone: [facility] Immunizations Immunization Date Immunization Notes Care Provider Fa cility 03-16-2024 influenza, high dose seasonal, preservative-free [facility] 02-14-2023 influenza virus vaccine, unspecified formulation Roman GUAN [facility] 03-12-2022 SARS-CoV-2 (COVID-19 ) [id number] Roman GUAN [facility] Comment on above: Result Comment: 2023: [id number] 02-28-2022 influenza virus vaccine, split virus (incl. purified surface antigen) Savanna Higgins Other [email or web address] Other 02-28-2022 influenza virus vaccine, unspecified formulation [facility] 11-09-2021 SARS-CoV-2 (COVID-19 ) mRNA-1273 vaccine Roman GUAN [facility] Comment on above: Result Comment: 2023: [id number] 03-08-2021 SARS-CoV-2 (COVID-19 ) mRNA-1273 vaccine Roman GUAN [facility] 02-27-2021 influenza virus vaccine, split virus (incl. purified surface antigen) Savanna Higgins Other [email or web address] Other 02-27-2021 influenza virus vaccine, unspecified formulation [facility] 06-29-2020 SARS-CoV-2 (COVID-19 ) mRNA-1273 vaccine Roman GUAN [facility] 06-01-2020 SARS-CoV-2 (COVID-19 ) mRNA-1273 vaccine Roman GUNA [facility] 03-14-2020 zoster vaccine recombinant Roman GUAN [facility] 02-16-2020 influenza virus vaccine, split virus (incl. purified surface antigen) Savanna Higgins Other [employer] [facility] boarding pass Other 02-16-2020 influenza virus vaccine, unspecified formulation [facility] 10-25-2019 pneumococcal polysaccharide vaccine, 23 valent Savanna Higgins Other [facility] 01-25-2019 influenza virus vaccine, unspecified formulation Roman GUAN [facility] 03-10-2018 pneumococcal conjuga te vaccine, 13 valent Savanna Higgins Other [facility] 02-14-2018 influenza virus vaccine, unspecified formulation Roman GUAN [facility] 01-08-2017 influenza virus vaccine, split virus (incl. purified surface antigen) Savanna Higgins Other [employer] [facility] boarding pass Other 01-08-2017 influenza virus vaccine, unspecified formulation [facility] 02-06-2016 influenza virus vaccine, split virus (incl. purified surface antigen) Savanna Higgins Other [employer] [facility] boarding pass Other 02-06-2016 influenza virus vaccine, unspecified formulation [facility] 03-24-2015 influenza virus vaccine, split virus (incl. purified surface antigen) Savanna Higgins Other [employer] [facility] boarding pass Other 03-24-2015 influenza virus vaccine, unspecified formulation [facility] 02-26-2013 tetanus and diphther ia toxoids, adsorbed, preservative free, for adult use (5 Lf of tetanus toxoid and 2 Lf of diphtheria toxoid) Savanna Higgins Other [facility] Payers Date Payer Category Payer Medicare 2014 Medicare [id number] 1960 Medicare [id number] 1940 Unknown [id number] 2.16.84 [id number] 1940 Unknown [id number] 2.16.84 0.1.755875.3.579.2.593 1940 Unknown [id number] 2.16.84 0.1.420470.3.579.2.593 1940 Unknown [id number] 2.16.84 0.1.079883.3.579.2.593 1940 Unknown [id number] 2.16.84 0.1.006877.3.579.2.593 1940 Unknown [id number] 2.16.84 0.1.055981.3.579.2.593 1940 Unknown [id number] 2.16.84 0.1.226902.3.579.2.593 1940 Unknown [id number] 2.16.84 0.1.420060.3.579.2.593 1940 Unknown [id number] 2.16.84 0.1.128178.3.579.2.593 1940 Unknown [id number] 2.16.84 0.1.391364.3.579.2.593 1940 Unknown [id number] 2.16.84 0.1.443873.3.579.2.593 1940 Unknown [id number] 2.16.84 0.1.284580.3.579.2.593 1940 Unknown [id number] 2.16.8 40.1.131186.3.579.2.727 1940 Unknown [id number] 2.16.8 40.1.302602.3.579.2.727 1940 Unknown [id number] 2.16.8 40.1.635076.3.579.2.727 1940 Unknown [id number] 2.16.8 40.1.386497.3.579.2.727 1940 Unknown [id number] 2.16.84 0.1.181094.3.579.2.1259 1940 Unknown [id number] 2.16. 840.1.755262.3.579.2.196 Private Health Insurance [id number] Social History Date Type Detail Facility Unknown if ever smoked [email or web address] Other Sex Assigned At [facility] Start: 1940 Sex Assigned At Female F [facility] Start: 09-17-2023 End: 10-13-2023 Tobacco smoking status Never smoked tobacco (finding) [facility] Tobacco smoking status Never [facility] Functional Status Date Assessment Result Facility 10-13-2023 Functional Status N/A [facility] 09-17-2023 Functional Status N/A [facility] Clinical Notes 12-19-2021 to 10-13-2023 Note Date & Type Note Facility 10-13-2023 Hospital Discharg e instructions Patient Education 10/13/2023 13:39:08 Kidney Stones, Rcbc-yd-Rwug Kidney Stones Kidney stones are rock-like masses [...] Follow these instructions at home: Medicines Take dves-qqq-bscvdee and prescription medicines only as told by [...] provider. Document Revised: 12/31/2021 Document Reviewed: 12/31/2021 [employer] Patient Education 2022 [employer]. Follow Up Care 09/17/2023 08:40:02 With:SHANNON SALGUERO, Roman Mitchell, URL Address: [facility] [address], [place] [phone] When: Unknown [facility] 09-17-2023 Hospital Discharg e instructions [...] Follow these instructions at home: Medicines Take hefs-sgz-rbljtix and prescription medicines only as told by [...] provider. Document Revised: 08/07/2022 Document Reviewed: 08/07/2022 [employer] Patient Education 2022 [employer]. Follow Up Care 09/11/2023 08:49:49 With:SHANNON SALGUERO, Roman Mitchell, URL Address: [facility] [address] [place] [address]- When: Unknown [facility] 01-31-2023 Evaluation note Encounter Date Diagnosis Assessment Notes Jan, Seasonal allergic rhinitis, unspecified trigger (ICD-10 - J30.2) [email or web address] Other 09-01-2023 Evaluation note* Encounter Date Diagnosis Assessment Notes Treatment Notes Treatment Clinical Notes Jan, Piriformis syndrome of left side (ICD-10 - G57.02) Unable to add more tramadol - likely has pain clinic w [facility]. PT order printed. Add steroids. Also gave copies of home exercises. [email or web address] Other 06-19-2023 Evaluation note* Encounter Date Diagnosis [...] - order handwritten and given to pt [email or web address] Other 04-27-2023 NoteCONSULTATION CONSULTATION DATE: 09/05/2022 TO: [...] our patients to inform us about any acfk-yhk-xbiqlay medications or herbal remedies/nutritional supplements/alternative remedies. 2. [...] with their primary care provider.[id number] Note CONSULTATION PROCEDURE DATE: 12/25/2021 PREOPERATIVE DIAGNOSIS: [...] of motion exercises are performed.[facility] 12-19-2021 NoteCONSULTATION CONSULTATION DATE: 12/19/2021 This [...] where she was seen by the physician facilities maintenance assistant in the office and received left [...] the plan of care, to be contacted [facility] [facility] Future Appointments Appointment Date:10/13/2023 12:15:00 PM Scheduled Provider:Roman GUAN MD Location:[facility] Appointment Type:URO Office Visit [facility] [place] Evaluation noteNo InformationNortExcela [facility] boarding pass Other Evaluation noteNo assessment information available [facility] Work Phone: Evaluation note* Diagnosis Onset Date Resolution Status Right lumbar pain acute [facility] Work Phone: Evaluation note* Diagnosis Onset Date Resolution Status Right lumbar pain acute Medicare annual wellness visit, subsequent acute Nephrolithiasis acute Screening mammogram for breast cancer acute [facility] Work Phone: Evaluation note* Diagnosis Onset Date Resolution Status Right lumbar pain acute Medicare annual wellness visit, subsequent acute Nephrolithiasis acute Screening mammogram for breast cancer acute Laceration of left lower leg without complication acute Lumbar back pain acute [facility] Work Phone: Hisodx[facility] general Narrative - Reported* Type Description Date Medical History migraine headache Medical History dizziness Medical History tremors Surgical History hysterectomy Surgical History bunionectomy Surgical History stapedectomy Hospitalization History see above [place] [employer] Other Hospital course Narrative No data available for this section [facility] [place] [employer] note No data available for this section [facility] [place] Summary Purpose Family History Relationship Condition Age at Onset Recorded Date/T julia father Unknown family member Unknown Not Specified Unknown Relationship Condition Age at Onset Recorded Date/T julia father Unknown family member Unknown mother Unknown Advance Directives Advance Directive Response Recorded Date/ Time Advance Directives No August 25 10:55am Advance Directive Response Recorded Date/ Time Advance Directives No August 25 9:55am Chief Complaint and Reason for Visit Chief [...] lower leg without complication Lumbar back pain Chief Complaint flu shot Additional Source Comments INFORMATION SOURCE (unrecogn ized section and content) DATE CREATED AUTHOR 10/18/2022 [facility] DATE CREATED AUTHOR AUTHOR'S ORGANIZ ATION 11/26/2023 [facility] DATE CREATED AUTHOR AUTHOR'S ORGANIZ ATION 01/06/2024 [facility] EPIC DATE CREATED AUTHOR AUTHOR'S ORGANIZ ATION 02/09/2024 [facility] REASON FOR VISIT (unrecogniz ed [...] 2023 Team Status: Active Member Role Status Henrietta Higgins MD Primary [...] December 09, 2023 End: December 09, 2023 Team Status: Inactive Member Role Status Henrietta Higgins MD Primary Care Provider Active Start: March 16, 2024 End: March 16, 2024 Mike Alfonso DO Attending Provider Active Sta rt: March 16, 2024 End: March 16, 2024 Goals (unrecognized section and content) Goals may [...] THE PRIMARY CLINICAL RECORDS. [facility] [employer]. provides no warranty or guarantee of the accuracy or completeness of information in this document.
[2024-03-30 09:33] VITALS: BP 123/73; PULSE 70; TEMP 36.7; O2SAT 97
[2024-03-30 10:35] VITALS: BP 136/61; PULSE 70; O2SAT 95
[2024-03-30 10:37] VITALS: BP 167/72; PULSE 76; O2SAT 99
[2024-03-30] MEDS: BUPIVACAINE HCL 0.25% PF 25 MG/10 ML VIAL 6 ML INJ (10:40)
--- NOTE | 2024-03-30 11:08 | P.ON_ITS ---
Date of procedure: 03/30/24 Pre-op diagnosis: Lumbar spondylosis Post-op diagnosis: same as pre-op Procedure: Bilateral Lumbar 2/3, 3/4 medial branch block Preop diagnosis includes pain secondary to spondylosis, Postop diagnosis same Under fluoroscopic guidance Solution injected: 2milliliters Marcaine 0.25% Anesthesia :none Immediate complications none Time out process compliant After informed consent obtained from the patient placed in the [employer] proposition . area was prepped and draped in a sterile fashion using betadine .25 gauge spinal needle inserted over each of the above mentioned target areas . [place] were directed towards the target under fluoroscopic guidance . after encountering each of the targets , no indication of intravascular intraneuronal or intrathecal needle tip placement. Then 0 .5 to 1 Milliliter was injected at each level. [place] removed postoperatively. patient transferred to recovery in stable condition to be discharged home after meeting criteria Anesthesia: Local Surgeon: Christian Mortensen Condition: stable
== END 2024-03-30 10:45 | disposition home or self-care (01) ==
LOC: SURGOUT 09:06
PROVIDERS: PCP Family Medicine; Visit Provider Anesthesiology Pain Medicine
DX: M47.816 Spondylosis without myelopathy or radiculopathy, lumbar region (principal)
CPT/HCPCS: 64493; 64494; J0665

== ENCOUNTER 2024-04-07 09:18 | Outpatient (OUT) | payer MEDICARE, SELFPAY ==
--- OUTSIDE RECORDS SUMMARY | 2024-04-07 09:24 | XMS_ITS | CCD ---
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 Name Role Phone GISELA, DR SAVANNA Willis [...] Unavailable HIGGINS, DR SAVANNA Willis Attending Unavailable ROSSTON, DR MINE Barriga Consulting Unavailable HIGGINS, DR SAVANNA Willis Admitting Unavailable HIGGINS, DR SAVANNA Willis Consulting Unavailable HIGGINS, DR SAVANNA Willis Attending Unavailable HIGGINS, DR SAVANNA Willis Admitting Unavailable BIRGIT, DR PB Mitchell Consulting Unavailable HIGGINS, DR ASVANNA Willis Primary Care Unavailable HIGGINS, DR SAVANNA Willis Consulting Unavailable GISELA, DR SAVANNA Willis Primary Care Unavailable LAKSHMIPATHY ., NARENDPATEL Attending Jessy vailable LAKSHMIPATHY ., NARENDLOWELLATH Admitting Jessy vailable LAKSHMIPATHY ., NARENDLOWELLATH Consulting Jessy vailable RASTEDIOR, ISAEL Consulting Unavailable GISELA, DR SAVANNA Willis Primary Care Unavailable HIGGINS, DR ASVANNA Willis Consulting Unavailable HIGGINS, DR SAVANNA Willis [...] Higgins Unavailable SAVANNA HIGGINS Primary Care Physician [phone] Roman GUAN Attending Unavailable SHANNON, Roman Mitchell Attending Unavailable Roman GUAN Attending Unavailable REBECA ROSENBERG Attending Unavailable Vane SAGLUERO, Dulce Cooper Attending Unavailable Medications Current Medications [...] take 1 tablet by mouth once daily Parkdale-3 Fish Oil 1 tab, Oral, Daily, Refill(s) [...] day(s), # 30 cap(s), Refills(s) 0, Pharmacy: [facility]/pharmacy #[id number], 56.1, kg, 09/17/23 8:03:00 EDT, Weight Dosing [...] CT Reporton 10-15-2023 RAD - CT Report [id number]# 1.00TIFF Najma Keenan [facility] Ambulatory Visit Summaryon 0 10-13-2023 Ambulatory [...] Vitamins oral capsule) omega-3 polyunsaturated fatty acids (Parkdale-3 Fish Oil) tamsulosin (Flomax 0.4 mg Cap) [...] [facility] [address] , [place] [address] [phone] Medications What How Much When Instructions Unchanged [...] or concerns Unchanged omega-3 polyunsaturated fatty acids (Parkdale-3 Fish Oil) 1 tab By Mouth Every [...] groin. (more content not included)... Normal Keenan [facility] Patient Educationon 10-13-19 24 Patient Education [...] these instructions at home: Medicines ? Take twhc-siy-mrolqls and prescription medicines only as told by [...] provider. Document Revised: 12/31/2021 Document Reviewed: 12/31/2021 [employer] Patient Education ? 2022 [employer] [facility] Urology Office/Clinic Noteon 10-13-2023 Urology Office/Clinic [...] pass, required surgery 2 years ago in [place] Was told at this time that she had a puncture in her kidney that would heal. Follow-up With When Contact Information SHANNON SALGUERO, Roman Mitchell, URL [facility] [address], [place] [address] [phone] Additional Instructions: f/u pending CT scan Patient Education Kidney Stones, Spik-eu-Hykv Anabella Webber, personally scribed for Dr. Guan [...] Vitamins oral capsule, 1 cap(s), Oral, Daily Parkdale-3 Fish Oil, 1 tab, Oral, Daily Osteo [...] virus vaccine, inactivated 02/14/2023 Recorded SARS-CoV-2 (COVID-19) [id number].[id number] 03/12/2022 Recorded 2023-10-13: TPV80 influenza virus vaccine, inactivated 02/28/2022 Recorded SARS-CoV-2 (COVID-19) mRNA-1273 vaccine 11/09/2021 Recorded 2023-10-13: TPV80 SARS-CoV-2 (COVID-19) mRNA-12 (more content not included)... Normal [facility] Comment on above: Result Comment: Elec tronically Signed By: Roman GUAN MD\.br\Date and Time Signed: 10/13/23 13:41 EDT\.br\Electronically Co-Signed By: Anabella Villalta\.br\Date and Time Co-Signed: 10/13/23 13:39 EDT RAD - MISCon 10-12-2023 RAD - MIS [id number] #1.00TIFF Normal [facility] ED Note-Physicianon 09-18-19 ED Note-Physician [id number] 8#1.00TIFF Normal [facility] Formson 09-18-2023 Forms [id number] #1.00TIFF Normal [facility] RAD - CT Reporton 09-18-2023 RAD - CT Report [id number] 8#1.00TIFF Normal [facility] RAD - MISCon 09-18-2023 RAD - MISC [id number] 1#1.00TIFF Normal [facility] RAD - MIS [id number]# 1.00TIFF Normal [facility] RAD - MISC [id number] 9#1.00TIFF Normal [facility] Ambulatory Visit Summaryon 0 09-17-2023 Ambulatory [...] Vitamins oral capsule) omega-3 polyunsaturated fatty acids (Parkdale-3 Fish Oil) zolmitriptan (Zomig 5 mg oral [...] SALGUERO, Roman Mitchell Where: [facility] Patient Educationon 09-17-19 24 Patient Education [...] these instructions at home: Medicines ? Take rcye-khl-wcjzoks and prescription medicines only as told by [...] recommendations from (more content not included)... Normal [facility] Urology Office/Clinic Noteon 09-17-2023 Urology Office/Clinic Note Chief Complaint New pt HPI Staff 1 week follow up w/[facility]-09/15/23-[facility] Pt was seen at [facility] on 09/09/23 due to abdominal pain [...] pass, required surgery 2 years ago in [place] Was told at this time that [...] [address] ct[address] SEs discussed. Rx sent to [facility] [place]. -High fluid intake. -Pt to call or go to the ER if he were to experience fever, shaking, chills, uncontrolled nausea, vomiting, or pain. Follow-up With When Contact Information SHANNON SALGUERO, Roman Mitchell, URL [facility] [address] [place] [address]- Additional Instructions: 3 weeks with [facility] Patient [...] Vitamins oral capsule, 1 cap(s), Oral, Daily Parkdale-3 Fish Oil, 1 tab, Oral, Daily Osteo [...] Lab Results (more content not included)... Normal [facility] Comment on above: Result Comment: Elec tronically Signed By: Roman GUAN MD\.br\Date and Time Signed: 09/17/23 08:41 EDT\.br\Electronically Co-Signed By: Cynthia Jones\.br\Date and Time Co-Signed: 09/17/23 08:39 EDT Basophils Auto (Bld) [#/Vol] on 09-09-2023 Basophils (Bld) [#/Vol] 0.0 10 3/uL 0.0-0.1 [facility] Basophils/100 WBC Auto (Bld) on 09-09-2023 Basophils/100 WBC (Bld) 0.4 % 0.2-2.0 [facility] Casts typing in urine sedime nt by light microscopyon 09-09-2023 Casts LM Nom (Urine sed) NONE SEEN #/LPF NONE SEEN [facility] Eosinophils/100 WBC Auto (Bl d)on 09-09-2023 Eosinophils/100 WBC (Bld) 1.1 % 0.9-7.0 [facility] Erythrocyte distribution wid th Auto (RBC) [Ratio]on 09-09-2023 Erythrocyte distribution width (RBC) [Ratio] 13.0 % 11.0-15.0 [facility] Estimated glomerular filtrat ion rate (GFR) non- Americanon 09-09-2023 GFR/1.73 sq M.predicted among non-blacks MDRD (S/P/Bld) [Vol rate/Area] 52 mL/min/{1.73_m2} Low >=60 [facility] Globulin Calc (S) [Mass/Vol] on 09-09-2023 Globulin (S) [Mass/Vol] 3.5 g/dL [facility] Hematocrit Auto (Bld) [Volum e fraction]on 09-09-2023 Hematocrit (Bld) [Volume fraction] 39.0 % 36.0-48.0 [facility] Hemoglobin [Mass/volume] in Bloodon 09-09-2023 Hemoglobin (Bld) [Mass/Vol] 12.6 g/dL 12.0-16.0 [facility] Laboratory - Chemistry and C hemistry - challengeon 09-09-2023 Albumin [Mass/Vol] 3.6 g/dL 3.4-5.0 [facility] ALP [Catalytic activity/Vol] 74 U/L 46-116 [facility] ALT [Catalytic activity/Vol] 30 U/L 14-59 [facility] AST [Catalytic activity/Vol] 24 U/L 15-37 [facility] Bilirubin [Mass/Vol] 0.5 mg/dL 0.2-1.0 [facility] Calcium [Mass/Vol] 9.8 mg/dL 8.5-10.1 [facility] Chloride [Moles/Vol] 102 mmol/L 98-107 [facility] CO2 [Moles/Vol] 31.2 mmol/L 21.0-32.0 [facility] Creatinine [Mass/Vol] 1.01 mg/dL 0.55-1.[address] [facility] GFR/1.73 sq M.predicted MDRD (S/P/Bld) [Vol rate/Area] mL/min/{1.73_m2} >=60 [facility] Glucose [Mass/Vol] 100 mg/dL 74-106 [facility] Lipase [Catalytic activity/Vol] 25.0 U/L 16.0-77.0 [facility] Potassium [Moles/Vol] 3.9 mmol/L 3.5-5.[address] [facility] Protein [Mass/Vol] 7.1 g/dL 6.4-8.2 [facility] Sodium [Moles/Vol] 140 mmol/L 136-145 [facility] Urea nitrogen [Mass/Vol] 22.0 mg/dL High 7.0-18.0 [facility] Urea nitrogen/Creatinine [Mass ratio] 21.8 mg/mg [facility] Bilirubin Ql (U) Negative NEGATIVE [facility] Glucose (U) [Mass/Vol] Negative NEGATIVE [facility] Ketones Ql (U) Negative NEGATIVE [facility] pH (U) 6.0 [pH] 5.0-9.0 [facility] Specific gravity (U) [Rel density] 1.020 1.005-1.025 [facility] Urobilinogen Qn (U) 0.2 {Sosa'U}/dL 0.2-1.0 [facility] Laboratory - Hematology and Cell countson 09-09-2023 Immature granulocytes/100 WBC (Bld) 0.3 % 0.0-0.5 [facility] Laboratory - Specimen inform ationon 09-09-2023 Appearance (U) CLEAR CLEAR [facility] Color (U) DK. YELLOW YELLOW [facility] Laboratory - Urinalysison Amorphous sediment LM Ql (Urine sed) RARE [facility] Leukocyte esterase Test strip Ql (U) TRACE Abnormal NEGATIVE [facility] Nitrite Ql (U) Negative NEGATIVE [facility] Protein Ql (U) Negative NEG/TRACE [facility] Leukocytes [#/volume] correc bill for nucleated erythrocytes in Blood by Automated counon 09-09-2023 WBC corrected for nucl RBC Auto (Bld) [#/Vol] 10.7 10 3/uL 4.0-11.0 [facility] Lymphocytes Auto (Bld) [#/Vo l]on 09-09-2023 Lymphocytes (Bld) [#/Vol] 1.5 10 3/uL 1.2-3.8 [facility] Lymphocytes/100 WBC Auto (Bl d)on 09-09-2023 Lymphocytes/100 WBC (Bld) 13.7 % Low 20.5-60.0 [facility] MCH Auto (RBC) [Entitic mass ]on 09-09-2023 MCH (RBC) [Entitic mass] 31.2 pg 26.7-34.0 [facility] MCHC Auto (RBC) [Mass/Vol]on 09-09-2023 MCHC (RBC) [Mass/Vol] 32.3 g/dL 29.9-35.[address] [facility] MCV Auto (RBC) [Entitic vol] on 09-09-2023 MCV (RBC) [Entitic vol] 96.5 fL 81.0-99.0 [facility] Monocytes Auto (Bld) [#/Vol] on 09-09-2023 Monocytes (Bld) [#/Vol] 1.0 10 3/uL High 0.3-0.8 [facility] Monocytes/100 WBC Auto (Bld) on 09-09-2023 Monocytes/100 WBC (Bld) 9.5 % 1.7-12.0 [facility] Mucus LM Ql (Urine sed)on Mucus Ql (Urine sed) NONE SEEN NONE SEEN [facility] Neutrophils Auto (Bld) [#/Vo l]on 09-09-2023 Neutrophils (Bld) [#/Vol] 8.0 10 3/uL High 1.4-6.5 [facility] Neutrophils/100 WBC Auto (Bl d)on 09-09-2023 Neutrophils/100 WBC (Bld) 75.0 % 43.0-75.0 [facility] No Panel Informationon 09-08 Eosinophils # (Auto) 0.1 10 3/uL 0.0-0.[address] [facility] Immature Granulocyte # (Auto) 0.03 10 3/uL 0.00-0.03 [facility] Urine Bacteria NONE SEEN #/HPF NONE SEEN [facility] Urine Culture Reflexed NO [facility] Urine Microscopic Review YES [facility] Urine Occult Blood LARGE Abnormal NEGATIVE [facility] Urine Other Crystals Seen #/HPF Abnormal None Seen [facility] Urine RBC 10-20 #/HPF Abnormal 0-2 [facility] Urine Squamous Epithelial Cells NONE SEEN #/LPF NONE/RARE [facility] Urine Uric Acid Crystals FEW [facility] Urine WBC 2-5 #/HPF Abnormal NONE SEEN [facility] Platelet mean volume Auto (B ld) [Entitic vol]on 09-09-2023 Platelet mean volume (Bld) [Entitic vol] 9.5 fL 9.5-13.5 [facility] Platelets Auto (Bld) [#/Vol] on 09-09-2023 Platelets (Bld) [#/Vol] 240 10 3/uL 150-450 [facility] RBC Auto (Bld) [#/Vol]on RBC (Bld) [#/Vol] 4.04 10 6/uL Low 4.20-5.40 [facility] Serum or plasma albumin/glob ulin mass ratioon 09-09-2023 Albumin/Globulin [Mass ratio] 1.0 {ratio} [facility] Serum or plasma anion gap de terminationon 09-09-2023 Anion gap [Moles/Vol] 10.7 mmol/L [facility] XR RIBS LT PA Stephen [...] by: PB GENAO Date: 2022-10-02 11:51 Normal [facility] XR CSPINE 2_3 VIEWSon 2022 XR [...] ISAEL GRIFFIN Date: 2022-09-05 15:58 Normal [facility] CBC AUTO DIFFon 12-31-2021 BASO # 0.0 103/ul Normal 0.0-0.1 [facility] Comment on above: Performed By: #### C BC #### [facility] [address] [address] [address] Radha Land Basophils/100 WBC (Bld) 0.2 % Normal 0.2-2.0 [facility] Comment on above: Performed By: #### C BC #### [facility] [address] [place] [address] Dr. Radha Land EO # 0.2 103/ul Normal 0.0-0.7 [facility] Comment on above: Performed By: #### C BC #### [facility] [address] [place] [address] Dr. Radha Land Eosinophils/100 WBC (Bld) 1.7 % Normal 0.9-7.0 [facility] Comment on above: Performed By: #### C BC #### [facility] [address] [place] [address] Dr. Radha Land Erythrocyte distribution width (RBC) [Ratio] 13.4 % Normal 11.0-15.0 [facility] Comment on above: Performed By: #### C BC #### [facility] [address] [place] [address] Dr. Radha Land Hematocrit (Bld) [Volume fraction] 40.9 % Normal 36.0-48.0 [facility] Comment on above: Performed By: #### C BC #### [facility] [address] [place] [address] Dr. Radha Land Hemoglobin (Bld) [Mass/Vol] 13.1 g/dL Normal 12.0-16.0 [facility] Comment on above: Performed By: #### C BC #### [facility] [address] [place] [address] Dr. Radha Land IG # 0.05 10e3/ul Critically high 0.00-0.03 [facility] Comment on above: Performed By: #### C BC #### [facility] [address] [place] [address] Dr. Radha Land IG % 0.4 % Normal 0.0-0.5 [facility] Comment on above: Performed By: #### C BC #### [facility] [address] [place] [address] Dr. Radha Land LYMPH # 1.4 103/ul Normal 1.2-3.8 [facility] Comment on above: Performed By: #### C BC #### [facility] [address] [address] [address] Radha Land Lymphocytes/100 WBC (Bld) 10.8 % Critically low 20.5-60.0 [facility] Comment on above: Performed By: #### C BC #### [facility] [address] [place] [address] Dr. Radha Land MANUAL DIFF REQ NO Normal [facility] Comment on above: Performed By: #### C BC #### [facility] [address] [place] [address] Dr. Radha Land MCH (RBC) [Entitic mass] 31.5 pg Normal 26.7-34.0 [facility] Comment on above: Performed By: #### C BC #### [facility] [address] [place] [address] Dr. Radha Land MCHC (RBC) [Mass/Vol] 32.0 g/dL Normal 29.9-35.2 [facility] Comment on above: Performed By: #### C BC #### [facility] [address] [place] [address] Dr. Radha Land MCV (RBC) [Entitic vol] 98.3 fL Normal 81.0-99.0 [facility] Comment on above: Performed By: #### C BC #### [facility] [address] [place] [address] Dr. Radha Land MONO # 1.3 103/ul Critically high 0.3-0.8 [facility] Comment on above: Performed By: #### C BC #### [facility] [address] [place] [address] Dr. Radha Land Monocytes/100 WBC (Bld) 9.7 % Normal 1.7-12.0 [facility] Comment on above: Performed By: #### C BC #### [facility] [address] [place] [address] Dr. Radha Land NEUT # 10.2 103/ul Critically high 1.4-6.5 [facility] Comment on above: Performed By: #### C BC #### [facility] [address] [address] [address] Radha Land Neutrophils/100 WBC (Bld) 77.2 % Critically high 43.0-75.0 [facility] Comment on above: Performed By: #### C BC #### [facility] [address] [address] [address] Radha Land Platelet mean volume (Bld) [Entitic vol] 9.7 fL Normal 9.5-13.5 [facility] Comment on above: Performed By: #### C BC #### [facility] [address] [address] [address] Radha Land PLT 235 103/ul Normal 150-450 [facility] Comment on above: Performed By: #### C BC #### [facility] [address] [address] [address] Radha Land RBC 4.16 106/ul Critically low 4.20-5.40 [facility] Comment on above: Performed By: #### C BC #### [facility] [address] [address] [address] Radha Land WBC 13.2 103/ul Critically high 4.0-11.0 [facility] Comment on above: Performed By: #### C BC #### [facility] [address] [address] [address] Radha Land SED RATE WESTERGRENon 2021 SED RATE 35 mm/hr Critically high <=30 [facility] Comment on above: Performed By: #### S EDR #### [facility] [address] [address] [address] Radha Land CBC AUTO DIFFon 11-07-2021 BASO # 0.0 103/ul Normal 0.0-0.1 [facility] Comment on above: Performed By: #### C BC ####[facility] [address] [address]Dr. Radha Land Basophils/100 WBC (Bld) 0.3 % Normal 0.2-2.0 [facility] Comment on above: Performed By: #### C BC ####[facility] [address] [address]Dr. Radha Land EO # 0.2 103/ul Normal 0.0-0.7 [facility] Comment on above: Performed By: #### C BC ####[facility] [address] [address]Dr. Radha Land Eosinophils/100 WBC (Bld) 3.3 % Normal 0.9-7.0 [facility] Comment on above: Performed By: #### C BC ####[facility] [address] [address]Dr. Radha Land Erythrocyte distribution width (RBC) [Ratio] 13.2 % Normal 11.0-15.0 [facility] Comment on above: Performed By: #### C BC ####[facility] [address] [address]Dr. Radha Land Hematocrit (Bld) [Volume fraction] 41.9 % Normal 36.0-48.0 [facility] Comment on above: Performed By: #### C BC ####[facility] [address] [address]Dr. Radha Land Hemoglobin (Bld) [Mass/Vol] 13.4 g/dL Normal 12.0-16.0 [facility] Comment on above: Performed By: #### C BC ####[facility] [address] [address]Dr. Rahda Land IG # 0.01 10e3/ul Normal 0.00-0.03 [facility] Comment on above: Performed By: #### C BC ####[facility] [address] [address]Dr. Radha Land IG % 0.2 % Normal 0.0-0.5 [facility] Comment on above: Performed By: #### C BC ####[facility] [address] [address]Dr. Radha Land LYMPH # 1.6 103/ul Normal 1.2-3.8 [facility] Comment on above: Performed By: #### C BC ####[facility] [address] [address]Dr. Radha Land Lymphocytes/100 WBC (Bld) 27.5 % Normal 20.5-60.0 [facility] Comment on above: Performed By: #### C BC ####[facility] [address] [address]Dr. Radha Land MANUAL DIFF REQ NO Normal [facility] Comment on above: Performed By: #### C BC ####[facility] [address] [address]Dr. Radha Land MCH (RBC) [Entitic mass] 31.2 pg Normal 26.7-34.0 [facility] Comment on above: Performed By: #### C BC ####[facility] [address] [address]Dr. Radha Land MCHC (RBC) [Mass/Vol] 32.0 g/dL Normal 29.9-35.2 [facility] Comment on above: Performed By: #### C BC ####[facility] [address] [address]Dr. Radha Emery MCV (RBC) [Entitic vol] 97.7 fL Normal 81.0-99.0 [facility] Comment on above: Performed By: #### C BC ####[facility] [address] [place], [place] [address]Dr. Radha Emery MONO # 0.7 103/ul Normal 0.3-0.8 [facility] Comment on above: Performed By: #### C BC ####[facility] [address] [address]Dr. Radha Emery Monocytes/100 WBC (Bld) 12.4 % Critically high 1.7-12.0 [facility] Comment on above: Performed By: #### C BC ####[facility] [address] [address]Dr. Jacquleyncharlotte Emrey NEUT # 3.2 103/ul Normal 1.4-6.5 [facility] Comment on above: Performed By: #### C BC ####[facility] [address] [place], [place] [address]Lc. Radha Land Neutrophils/100 WBC (Bld) 56.3 % Normal 43.0-75.0 [facility] Comment on above: Performed By: #### C BC ####[facility] [address] [place], [place] [address]Oe. Radha Land Platelet mean volume (Bld) [Entitic vol] 9.4 fL Critically low 9.5-13.5 [facility] Comment on above: Performed By: #### C BC ####[facility] [address] [place], [place] [address]Mg. Radha Land PLT 226 103/ul Normal 150-450 [facility] Comment on above: Performed By: #### C BC ####[facility] [address] [place], [place] [address]Bs. Radha Land RBC 4.29 106/ul Normal 4.20-5.40 [facility] Comment on above: Performed By: #### C BC ####[facility] [address] [place], [place] [address]Vw. Radha Land WBC 5.7 103/ul Normal 4.0-11.0 [facility] Comment on above: Performed By: #### C BC ####[facility] [address] [place], [place] [address]Aa. Radha Land LIPID PROFILEon 11-07-2021 CHOL-HDL RATIO NORM SEE BELOW Normal [facility] Comment on above: Result Comment: 3.3 - 4.4 LOW RISK 4.4 - 7.1 AVERAGE RISK 7.1 - 11.0 MODERATE RISK >11.0 HIGH RISK Performed By: #### L IPID, CMP #### [facility] [address] [place], [place] [address] Dr. Radha Land Cholesterol [Mass/Vol] 257 mg/dL Critically high <=200 [facility] Comment on above: Performed By: #### L IPID, CMP #### [facility] [address] [place], [place] [address] Dr. Radha Land Cholesterol in HDL [Mass/Vol] 76 mg/dL Critically high 40-60 [facility] Comment on above: Performed By: #### L IPID, CMP #### [facility] [address] [address] [address] Radha Land Cholesterol in LDL [Mass/Vol] 163.8 mg/dL Normal [facility] Comment on above: Performed By: #### L IPID, CMP #### [facility] [address] [address] [address] Radha Land Cholesterol.total/Cho lesterol in HDL [Mass ratio] 3.4 {ratio} Normal [facility] Comment on above: Performed By: #### L IPID, CMP #### [facility] [address] [address] [address] Radha Land HDL NORMAL > or = 60 mg/dl - LOW CARDIOVASCULAR RISK <40 mg/dl - HIGH CARDIOVASCULAR RISK Normal [facility] Comment on above: Performed By: #### L IPID, CMP #### [facility] [address] [address] [address] Radha Land LDL CALC NORMAL SEE BELOW Normal [facility] Comment on above: Result Comment: <100 mg/dl OPTIMAL 100 - 129 mg/dl NEAR OR ABOVE OPTIMAL 130 - 159 mg/dl BORDERLINE HIGH 160 - 189 mg/dl HIGH >190 mg/dl VERY HIGH Performed By: #### L IPID, CMP #### [facility] [address] [address] [address] Radha Land Triglyceride [Mass/Vol] 86 mg/dL Normal <=150 [facility] Comment on above: Performed By: #### L IPID, CMP #### [facility] [address] [address] [address] Radha Land VLDL CALC 17.2 mg/dL Normal [facility] Comment on above: Performed By: #### L IPID, CMP #### [facility] [address] [place] [address] Dr. Radha Land MG MAMM SCREEN 3D GIANCARLO CADon 11-07-2021 MG MAMM SCREEN 3D GIANCARLO CAD Patient: EDUARDO LEA. Exam Date: 11/07/2021 : 1940 Gender:F Ordering : DR SAVANNA HIGGINS M.D. Admission #: [id number] Family : Order #: [id number] CLICK HERE TO VIEW EXAM RADIOLOGY REPORT [...] ovarian cancer at age 47. LOCATION: [facility] BREAST COMPOSITION: Extremely dense, which lowers [...] Arriaga MD on 11/07/2021 at 11:21 Normal [facility] PROF 14(COMP METB)on 022 Albumin [Mass/Vol] 3.6 g/dL Normal 3.4-5.0 [facility] Comment on above: Performed By: #### L IPID, CMP #### [facility] [address] [place] [address] Dr. Radha Land Albumin/Globulin [Mass ratio] 0.9 {ratio} Normal [facility] Comment on above: Performed By: #### L IPID, CMP #### [facility] [address] [address] [address] Radha Land ALP [Catalytic activity/Vol] 79 U/L Normal 46-116 [facility] Comment on above: Performed By: #### L IPID, CMP #### [facility] [address] [place], [place] [address] Dr. Radha Land ALT [Catalytic activity/Vol] 32 U/L Normal 14-59 [facility] Comment on above: Performed By: #### L IPID, CMP #### [facility] [address] [address] [address] Radha Land Anion gap [Moles/Vol] 6.1 mmol/L Normal [facility] Comment on above: Performed By: #### L IPID, CMP #### [facility] [address] [address] [address] Radha Land AST [Catalytic activity/Vol] 28 U/L Normal 15-37 [facility] Comment on above: Performed By: #### L IPID, CMP #### [facility] [address] [address] [address] Radha Land Bilirubin [Mass/Vol] 0.6 mg/dL Normal 0.2-1.0 [facility] Comment on above: Performed By: #### L IPID, CMP #### [facility] [address] [address] [address] Radha Land Calcium [Mass/Vol] 9.1 mg/dL Normal 8.5-10.1 [facility] Comment on above: Performed By: #### L IPID, CMP #### [facility] [address] [address] [address] Radha Land Chloride [Moles/Vol] 104 mmol/L Normal 98-107 [facility] Comment on above: Performed By: #### L IPID, CMP #### [facility] [address] [address] [address] Radha Land CO2 [Moles/Vol] 31.0 mmol/L Normal 21.0-32.0 [facility] Comment on above: Performed By: #### L IPID, CMP #### [facility] [address] [address] [address] Radha Land Creatinine [Mass/Vol] 0.86 mg/dL Normal 0.55-1.02 [facility] Comment on above: Performed By: #### L IPID, CMP #### [facility] [address] [address] [address] Radha Land EGFR-AF CITIZEN OF [place] >60 Normal >=60 [facility] Comment on above: Performed By: #### L IPID, CMP #### [facility] [address] [address] [address] Radha Land EGFR-NON AF CITIZEN OF [place] >60 Normal >=60 [facility] Comment on above: Performed By: #### L IPID, CMP #### [facility] [address] [address] [address] Radha Land Globulin (S) [Mass/Vol] 4.1 g/dL Normal [facility] Comment on above: Performed By: #### L IPID, CMP #### [facility] [address] [address] [address] Radha Land Glucose [Mass/Vol] 89 mg/dL Normal 74-106 [facility] Comment on above: Performed By: #### L IPID, CMP #### [facility] [address] [address] [address] Radha Land Potassium [Moles/Vol] 4.1 mmol/L Normal 3.5-5.1 [facility] Comment on above: Performed By: #### L IPID, CMP #### [facility] [address] [address] [address] Radha Land Protein [Mass/Vol] 7.7 g/dL Normal 6.4-8.2 [facility] Comment on above: Performed By: #### L IPID, CMP #### [facility] [address] [address] [address] Radha Land Sodium [Moles/Vol] 137 mmol/L Normal 136-145 [facility] Comment on above: Performed By: #### L IPID, CMP #### [facility] [address] [address] [address] Radha Land Urea nitrogen [Mass/Vol] 12.0 mg/dL Normal 7.0-18.0 [facility] Comment on above: Performed By: #### L IPID, CMP #### [facility] [address] [address] [address] Radha Land Urea nitrogen/Creatinine [Mass ratio] 14.0 mg/mg Normal [facility] Comment on above: Performed By: #### L IPID, CMP #### [facility] [address] [address] [address] Radha Land Vital Signs Date Time Vital Sign Value Performing Clinician Facility 11-18-2023 10:53-0400 Body height 165.1 cm [facility] 11-18-2023 10:53-0400 Body mass index (BMI) [Ratio] 20.5 kg/m2 [facility] 11-18-2023 10:53-0400 Body weight 55.79 kg [facility] 11-18-2023 10:53-0400 Diastolic blood pressure 55 mm[Hg] [facility] 11-18-2023 10:53-0400 Heart rate 65 /min [facility] 11-18-2023 10:53-0400 Systolic blood pressure 132 mm[Hg] [facility] 11-06-2023 11:11-0400 Body height 165.1 cm [facility] 11-06-2023 11:11-0400 Body mass index (BMI) [Ratio] 20.2 kg/m2 [facility] 11-06-2023 11:11-0400 Body weight 55.33 kg [facility] 11-06-2023 11:11-0400 Diastolic blood pressure 67 mm[Hg] [facility] 11-06-2023 11:11-0400 Heart rate 61 /min [facility] 11-06-2023 11:11-0400 Systolic blood pressure 124 mm[Hg] [facility] 10-13-2023 12:31-0400 Blood Pressure Location Roman GUAN [facility] 10-13-2023 12:31-0400 Diastolic blood pressure 78 mm[Hg] Roman GUAN [facility] 10-13-2023 12:31-0400 Heart rate 80 /min Roman GUAN [facility] 10-13-2023 12:31-0400 Respiratory rate 16 /min Roman GUAN [facility] 10-13-2023 12:31-0400 Systolic blood pressure 134 mm[Hg] Roman GUAN [facility] 09-30-2023 14:31-0400 Body height 165.1 cm [facility] 09-30-2023 14:31-0400 Body mass index (BMI) [Ratio] 20.5 kg/m2 [facility] 09-30-2023 14:31-0400 Body weight 55.79 kg [facility] 09-30-2023 14:31-0400 Diastolic blood pressure 62 mm[Hg] [facility] 09-30-2023 14:31-0400 Heart rate 64 /min [facility] 09-30-2023 14:31-0400 Systolic blood pressure 104 mm[Hg] [facility] 09-17-2023 08:00-0400 Blood Pressure Location Roman GUAN [facility] 09-17-2023 08:00-0400 Diastolic blood pressure 80 mm[Hg] Roman GUAN [facility] 09-17-2023 08:00-0400 Heart rate 64 /min Romanarminda GUAN [facility] 09-17-2023 08:00-0400 Systolic blood pressure 132 mm[Hg] Romanarminda GUAN [facility] 01-10-2023 09:45-0400 Body height 165.1 cm Savanna Higgins Other [employer] Other 01-10-2023 09:45-0400 Body mass index (BMI) [Ratio] 20.87 kg/m2 Savanna Higgins Other [employer] Other 01-10-2023 09:45-0400 Body weight 56.88 kg Savanna Higgins Other [employer] Other 01-10-2023 09:45-0400 Diastolic blood pressure 78 mm[Hg] Savanna Higgins Other [employer] Other 01-10-2023 09:45-0400 Systolic blood pressure 142 mm[Hg] Savanna Higgins Other [employer] Other 10-28-2022 08:30-0400 Body height 165.1 cm Savanna Higgins Other [employer] Other 10-28-2022 08:30-0400 Body mass index (BMI) [Ratio] 20.47 kg/m2 Savanna Higgins Other [employer] Other 10-28-2022 08:30-0400 Body weight 55.79 kg Savanna Higgins Other [employer] Other 10-28-2022 08:30-0400 Diastolic blood pressure 47 mm[Hg] Savanna Higgins Other [employer] Other 10-28-2022 08:30-0400 Systolic blood pressure 124 mm[Hg] Savanna Higgins Other [employer] Other Encounters Encounter Date Encounter Type Care Provider Facility Start: 10-15-2024 ambulatory Roman Mota ty:[facility] [place] Start: 03-16-2024 End: 03-16-2024 ambulatory [facility] Work Phone: Start: 03-16-2024 End: 03-16-2024 Patient encounter procedure [facility] Work Phone: Start: 02-02-2024 End: 02-02-2024 ambulatory Dulce Cifuentes MD Facility: [place] Start: 01-05-2024 End: 01-05-2024 ambulatory REBECA ROSENBERG Not Available Start: 12-09-2023 End: 12-09-2023 ambulatory [facility] Work Phone: Start: 12-09-2023 End: 12-09-2023 Patient encounter procedure [facility] Work Phone: Start: 11-18-2023 End: 11-18-2023 ambulatory [facility] Work Phone: Start: 11-18-2023 End: 11-18-2023 Patient encounter procedure [facility] Work Phone: Start: 11-10-2023 Patient encounter procedure [facility] Start: 11-06-2023 End: 11-06-2023 Patient encounter procedure [facility] Work Phone: Start: 10-13-2023 End: 10-13-2023 ambulatory Roman GUAN Facility:[facility] Start: 10-13-2023 End: 10-13-2023 Patient encounter procedure Roman GUAN [facility] [place] Start: 09-30-2023 End: 09-30-2023 ambulatory [facility] Work Phone: Start: 09-30-2023 End: 09-30-2023 Patient encounter procedure [facility] Work Phone: Start: 09-17-2023 End: 09-17-2023 ambulatory Roman GUAN Facility:[facility] Start: 09-17-2023 End: 09-17-2023 Patient encounter procedure Roman GUAN [facility] [place] Start: 09-11-2023 ambulatory Roman GUAN Facility :[facility] Start: 09-09-2023 Non-patient / Non-visit [facility] [employer] Work Phone: Start: 08-26-2023 End: 08-26-2023 ambulatory [facility] Work Phone: Start: 08-26-2023 End: 08-26-2023 Patient encounter procedure [facility] Work Phone: Start: 03-28-2023 End: 03-28-2023 ambulatory Savanna Higgins Other [employer] Other Start: 03-28-2023 Telephone encounter Savanna Higgins [facility] Start: 01-31-2023 End: 01-31-2023 ambulatory Savanna Higgins Other [employer] Other Start: 01-31-2023 Nursing evaluation o f patient and report Savanna Higgins [facility] Start: 01-14-2023 End: 01-14-2023 ambulatory Savanna Higgins Other [employer] Other Start: 01-14-2023 Telephone encounter Savanna Gisela [facility] Start: 01-10-2023 End: 01-10-2023 ambulatory Savanna Higgins Other [employer] Other Start: 01-10-2023 Office outpatient visit 15 minutes Savanna Higgins [facility] Start: 10-28-2022 End: 10-28-2022 ambulatory Savanna Higgins Other [employer] Other Start: 10-28-2022 Patient encounter procedure Savanna Gisela [facility] Start: 10-24-2022 End: 10-24-2022 ambulatory Savanna Higgins Other [employer] Other Start: 10-24-2022 Telephone encounter Savanna Higgins [facility] Start: 10-08-2022 End: 10-08-2022 ambulatory AJ [...] 12-31-2021 Adult health examination Savanna Higgins Other [employer] Other Start: 12-31-2021 End: 01-01-[address] [...] Detail Author Diagnostic radiograp hy of abdomen [facility] MG Breast - bilatera l Screening [facility] Patient Education Low back pain in adults [facility] Work Phone: [facility] Immunizations Immunization Date Immunization Notes Care Provider Fa cility 03-16-2024 influenza, high dose seasonal, preservative-free [facility] 02-14-2023 influenza virus vaccine, unspecified formulation Roman GUAN [facility] 03-12-2022 SARS-CoV-2 (COVID-19 ) [id number] Roman GUAN [facility] Comment on above: Result Comment: 2023: [id number] 02-28-2022 influenza virus vaccine, split virus (incl. purified surface antigen) Savanna Higgins Other [employer] Other 02-28-2022 influenza virus vaccine, unspecified formulation [facility] 11-09-2021 SARS-CoV-2 (COVID-19 ) mRNA-1273 vaccine Roman GUAN [facility] Comment on above: Result Comment: 2023: [id number] 03-08-2021 SARS-CoV-2 (COVID-19 ) mRNA-1273 vaccine Roman GUAN [facility] 02-27-2021 influenza virus vaccine, split virus (incl. purified surface antigen) Savanna Higgins Other [employer] Other 02-27-2021 influenza virus vaccine, unspecified formulation [facility] 06-29-2020 SARS-CoV-2 (COVID-19 ) mRNA-1273 vaccine Roman GUAN [facility] 06-01-2020 SARS-CoV-2 (COVID-19 ) mRNA-1273 vaccine Roman GUAN [facility] 03-14-2020 zoster vaccine recombinant Roman GUAN [facility] 02-16-2020 influenza virus vaccine, split virus (incl. purified surface antigen) Savanna Higgins Other [facility] [employer] Other 02-16-2020 influenza virus vaccine, unspecified formulation [facility] 10-25-2019 pneumococcal polysaccharide vaccine, 23 valent Savanna Higgins Other [facility] 01-25-2019 influenza virus vaccine, unspecified formulation Roman GUAN [facility] 03-10-2018 pneumococcal conjuga te vaccine, 13 valent Savanna Higgins Other [facility] 02-14-2018 influenza virus vaccine, unspecified formulation Roman GUAN [facility] 01-08-2017 influenza virus vaccine, split virus (incl. purified surface antigen) Savanna Higgins Other [facility] [employer] Other 01-08-2017 influenza virus vaccine, unspecified formulation [facility] 02-06-2016 influenza virus vaccine, split virus (incl. purified surface antigen) Savanna Higgins Other [facility] [employer] Other 02-06-2016 influenza virus vaccine, unspecified formulation [facility] 03-24-2015 influenza virus vaccine, split virus (incl. purified surface antigen) Savanna Higgins Other [facility] [employer] Other 03-24-2015 influenza virus vaccine, unspecified formulation [facility] 02-26-2013 tetanus and diphther ia toxoids, adsorbed, preservative free, for adult use (5 Lf of tetanus toxoid and 2 Lf of diphtheria toxoid) Savanna Higgins Other [facility] Payers Date Payer Category Payer Medicare 2014 Medicare [id number] 1960 Medicare [id number] 1940 Unknown [id number] 2.16.84 [id number] 1940 Unknown [id number] 2.16.84 0.1.519342.3.579.2.593 1940 Unknown [id number] 2.16.84 0.1.897405.3.579.2.593 1940 Unknown [id number] 2.16.84 0.1.100971.3.579.2.593 1940 Unknown [id number] 2.16.84 0.1.777837.3.579.2.593 1940 Unknown [id number] 2.16.84 0.1.423958.3.579.2.593 1940 Unknown [id number] 2.16.84 0.1.353705.3.579.2.593 1940 Unknown [id number] 2.16.84 0.1.656718.3.579.2.593 1940 Unknown [id number] 2.16.84 0.1.290646.3.579.2.593 1940 Unknown [id number] 2.16.84 0.1.811461.3.579.2.593 1940 Unknown [id number] 2.16.84 0.1.590517.3.579.2.593 1940 Unknown [id number] 2.16.84 0.1.291369.3.579.2.593 1940 Unknown [id number] 2.16.8 40.1.655107.3.579.2.727 1940 Unknown [id number] 2.16.8 40.1.727712.3.579.2.727 1940 Unknown [id number] 2.16.8 40.1.152518.3.579.2.727 1940 Unknown [id number] 2.16.8 40.1.274000.3.579.2.727 1940 Unknown [id number] 2.16.84 0.1.407413.3.579.2.1259 1940 Unknown [id number] 2.16. 840.1.323190.3.579.2.196 Private Health Insurance [id number] 2.16.840.1.182012.19 Social History Date Type Detail Facility Unknown if ever smoked [employer] Other Sex Assigned At [facility] Start: 1940 Sex Assigned At Female F [facility] Start: 09-17-2023 End: 10-13-2023 Tobacco smoking status Never smoked tobacco (finding) [facility] Tobacco smoking status Never [facility] Functional Status Date Assessment Result Facility 10-13-2023 Functional Status N/A [facility] 09-17-2023 Functional Status N/A [facility] Clinical Notes 12-19-2021 to 10-13-2023 Note Date & Type Note Facility 10-13-2023 Hospital Discharg e instructions Patient Education 10/13/2023 13:39:08 Kidney Stones, Dinb-nb-Fjml Kidney Stones Kidney stones are rock-like masses [...] Follow these instructions at home: Medicines Take orto-lux-nkocmkm and prescription medicines only as told by [...] provider. Document Revised: 12/31/2021 Document Reviewed: 12/31/2021 [place] Patient Education 2022 [employer]. Follow Up Care 09/17/2023 08:40:02 With:SHANNON SALGUERO, Roman Mitchell, URL Address: [facility] [address], [place] [address]- [phone] When: Unknown [facility] [place] 09-17-2023 Hospital Discharg e instructions [...] Follow these instructions at home: Medicines Take hllm-uol-wgfdgmk and prescription medicines only as told by [...] provider. Document Revised: 08/07/2022 Document Reviewed: 08/07/2022 [employer] Patient Education 2022 [employer] Competence. Follow Up Care 09/11/2023 08:49:49 With:SHANNON SALGUERO, Roman Mitchell, URL Address: [facility] [address] [place] [address]- When: Unknown [facility] 01-31-2023 Evaluation note Encounter Date Diagnosis Assessment Notes Jan, Seasonal allergic rhinitis, unspecified trigger (ICD-10 - J30.2) [employer] Other 09-01-2023 Evaluation note* Encounter Date Diagnosis Assessment Notes Treatment Notes Treatment Clinical Notes Jan, Piriformis syndrome of left side (ICD-10 - G57.02) Unable to add more tramadol - likely has pain clinic w [place] [facility]. PT order printed. Add steroids. Also gave copies of home exercises. [employer] Other 06-19-2023 Evaluation note* Encounter Date Diagnosis [...] - order handwritten and given to pt [employer] Other 04-27-2023 NoteCONSULTATION CONSULTATION DATE: 09/05/2022 TO: [...] our patients to inform us about any erdu-ymh-dbnpdkf medications or herbal remedies/nutritional supplements/alternative remedies. 2. [...] treatment options with their primary care provider.[id number] Note CONSULTATION PROCEDURE DATE: 12/25/2021 PREOPERATIVE DIAGNOSIS: [...] procedurally range of motion exercises are performed.[facility] 12-19-2021 NoteCONSULTATION CONSULTATION DATE: 12/19/2021 This [...] where she was seen by the physician clinical data assistant in the office and received left [...] the plan of care, to be contacted [facility] Future Appointments Appointment Date:10/13/2023 12:15:00 PM Scheduled Provider:Roman GUAN MD Location:[facility] Appointment Type:URO Office Visit [facility] [employer] Other Evaluation noteNo assessment information available [facility] Work Phone: Evaluation note* Diagnosis Onset Date Resolution Status Right lumbar pain acute [facility] Work Phone: Evaluation note* Diagnosis Onset Date Resolution Status Right lumbar pain acute Medicare annual wellness visit, subsequent acute Nephrolithiasis acute Screening mammogram for breast cancer acute [facility] Work Phone: Evaluation note* Diagnosis Onset Date Resolution Status Right lumbar pain acute Medicare annual wellness visit, subsequent acute Nephrolithiasis acute Screening mammogram for breast cancer acute Laceration of left lower leg without complication acute Lumbar back pain acute [facility] Work Phone: [employer] general Narrative - Reported* Type Description Date Medical History migraine headache Medical History dizziness Medical History tremors Surgical History hysterectomy Surgical History bunionectomy Surgical History stapedectomy Hospitalization History see above [place] [employer] Other Hospital course Narrative No data available for this section [facility] [place] [employer] note No data available for this section [facility] Summary Purpose Family History Relationship [...] DATE CREATED AUTHOR AUTHOR'S ORGANIZ ATION 11/26/2023 [facility] DATE CREATED AUTHOR AUTHOR'S ORGANIZ ATION 01/06/2024 [facility] EPIC DATE CREATED AUTHOR AUTHOR'S ORGANIZ ATION 02/09/2024 [facility] REASON FOR VISIT (unrecogniz ed section [...] BE BASED ON THE PRIMARY CLINICAL RECORDS. [facility], [facility]. provides no warranty or guarantee of the accuracy or completeness of information in this document.
--- NOTE | 2024-04-07 09:48 | PM.CN ---
Consult Note: HPI Data of Consult Patient: known to practice within the last 3 years Requesting Physician: Ana Gracia NP Primary Care Provider: Savanna Guajardo MD Consult Narrative Reason for consult: chronic low back pain Narrative: Ninfa Franco a pleasant 83 year old female presents for evaluation of chronic low back pain. Patient has a chronic history of low back pain unresponsive to conservative medications including tylenol, OTC NSAIDs, heat, ice and PT. Patient engaged in aquatherapy at this time with no benefit, has attended 6/8 visits. Patient recently underwent a L5/S1 STEVEN with 90% improvement in pain for 3 days before pain returned to baseline, recently underwent bilateral L3-4 L4-5 MBB #1 with less than 80% improvement and bilateral L2-3 L3-4 MBB without improvement. Patient continues to have moderate to severe low back pain, at this time no radiculopathy. Pain 8/10 increased with twisting pushing pulling standing bending and activity. Pain improved with diclofenac, tramadol, sitting, lying, and sleep. cc:: CC: Ana Gracia NP Review of Systems ROS Status of ROS 10 or more systems reviewed and unremarkable except as noted in history and below Musculoskeletal Reports: back pain PFSH PFSH Medical History Osteoarthritis ?M19.90 - Unspecified osteoarthritis, unspecified site (ICD-10) Hearing deficit ?H91.90 - Unspecified hearing loss, unspecified ear (ICD-10) Surgical History History of bunionectomy of left great toe ?Z98.890 - Other specified postprocedural states (ICD-10) History of stapedectomy ?Z90.09 - Acquired absence of other part of head and neck (ICD-10) History of cervical discectomy ?Z98.890 - Other specified postprocedural states (ICD-10) History of hysterectomy ?Z90.710 - Acquired absence of both cervix and uterus (ICD-10) Meds Home Medications and Allergies Home Medications ?Medication ?Instructions ?Recorded ?Confirmed ?Type calcium 500 mg-vitamin D3 100 1 tab PO DAILY 11/06/22 03/30/24 History unit-vitamin K 40 mcg chewable tablet diclofenac sodium 50 mg 50 mg PO BID 11/06/22 03/30/24 History tablet,delayed release glucosamine-chondroitin 250 mg-200 2 tab PO DAILY 11/06/22 03/30/24 History mg tablet (Osteo Bi-Flex) lactobacillus combo no.13 1 1 cap PO DAILY 11/06/22 03/30/24 History billion cell capsule,delayed release (Probiotic Pearls Complete) magnesium 200 mg tablet 400 mg PO DAILY 11/06/22 03/30/24 History meclizine 25 mg chewable tablet 25 mg PO DAILY 11/06/22 03/30/24 History (Antivert) multivitamin (Daily Multi-Vitamin 1 tab PO DAILY 11/06/22 03/30/24 History tablet) omega 0-mje-xtw-fish oil 1,200 mg 1 cap PO DAILY 11/06/22 03/30/24 History (144 mg-216 mg) capsule (Fish Oil) prasterone (dhea) 50 mg capsule 50 mg PO DAILY 11/06/22 03/30/24 History (DHEA) vitamin B complex (B 1 tab PO DAILY 11/06/22 03/30/24 History Complex-Vitamin B12 tablet) atenolol 50 mg tablet 50 mg PO DAILY 09/09/23 03/30/24 History ondansetron 4 mg disintegrating 4 mg PO Q8H PRN nausea and 09/09/23 03/30/24 Rx tablet vomiting 4 days #12 tabs tramadol 50 mg tablet 50 mg PO BID PRN pain #60 tabs 12/03/23 03/30/24 Rx diclofenac sodium 50 mg 50 mg PO BID #60 tabs 03/16/24 03/30/24 Rx tablet,delayed release tramadol 50 mg tablet 50 mg PO BID PRN pain #60 tabs 03/16/24 03/30/24 Rx Allergies Allergy/AdvReac Type Severity Reaction Status Date / Time No Known Drug Allergies Allergy Verified 03/30/24 09:38 Exam Constitutional Documenting provider has reviewed patient's vital signs: yes Common normals: no apparent distress, oriented x3, healthy appearing, alert and well nourished General appearance: cooperative [facility] Common normals: normocephalic, hearing grossly normal bilaterally and moist oral mucous membranes Head and scalp: normocephalic Eye Common normals: PERRL Pupil: PERRL Neck & C-Spine Common normals: full ROM General: normal visual inspection Chest Common normals: inspection of chest normal Respiratory Common normals: normal respiratory effort, no retractions and no use of accessory muscles Back & Pelvis Lumbar spine/lower back: ROM limited, pain with ROM and straight leg raise negative bilaterally; no lumbar spinal tenderness, no paraspinal muscle tenderness and no paraspinal muscle spasm Sacroiliac joints: SI joint(s) abnormal Other: significant axial low back pain, facet tenderness over L2-4 facet joints no radiculopathy on exam, strength 5/5 in BLE, sensation intact BLE bilateral SIJ exam positive florence(patricks), gaenslens, thigh thrust, compression test increased pain over bilateral superior gluteal nerves and flank Extremity Common normals: normal to inspection and full ROM Neuro Common normals: oriented x3, CN's II-XII intact bilaterally, moves all extremities, no focal motor deficits, no sensory deficits noted and deep tendon reflexes 2+ bilaterally Sensorium/orientation: alert Motor exam: strength 5/5 throughout and no movement abnormalities noted Psych Common normals: mental status grossly normal, thought process normal, cooperative, affect normal, speech normal and activity/motor behavior normal Speech: normal speech Thought process: normal thought process Assessment and Plan Assessment and Plan (1) Unspecified mononeuropathy of right lower limb: (2) Unspecified mononeuropathy of left lower limb: (3) Lumbar spondylosis: (4) Lumbar degenerative disc disease: (5) Chronic prescription opiate use: (6) Spondylosis of cervical region without myelopathy or radiculopathy: (7) Myalgia, other site: Plan at this time pt is not interested in additional interventions, pt is following with [facility] for consideration of surgical intervention. DC tramadol, start hydrocodone-acetaminophen 5-325mg once daily for moderate to severe pain. 1 week trial at this time. if pt finds more benefit we will have her bring tramadol in for disposal DC diclofenac 50mg BID PRN, continue aleve. can consider diclofenac 75mg BID PRN in the future. risks vs benefits of regimen reviewed. continue HEP as tolerated f/u 4-6 weeks to evaluate medication changes and discuss bilateral superior gluteal nerve block working towards RFA
== END 2024-04-07 09:19 | disposition home or self-care (01) ==
PROVIDERS: PCP Family Medicine; Visit Provider Nurse Practitioner
DX: G57.93 Unspecified mononeuropathy of bilateral lower limbs (principal); M47.816 Spondylosis without myelopathy or radiculopathy, lumbar region; M51.369 Other intervertebral disc degeneration, lumbar region without mention of lumbar back pain or lower extremity pain; Z79.891 Long term (current) use of opiate analgesic; M47.812 Spondylosis without myelopathy or radiculopathy, cervical region; M79.18 Myalgia, other site
CPT/HCPCS: G0463

== ENCOUNTER 2024-04-13 07:42 | Outpatient (OUT) | payer MEDICARE, SELFPAY ==
--- NOTE | 2024-04-13 07:45 | CT_ITS ---
[address] [address] Patient Name: EDUARDO LEA MRN: [id number] date: 1940 Sex: F Assigned Patient Location: CT Current Patient Location: CT Accession/Order Number: [id number] Exam Date: 04/13/2024 07:51 Report Date: 04/13/2024 08:15 At the request of: RUBA HIGGINS Procedure: CT lumbar spine wo con EXAMINATION: CT lumbar spine wo con HISTORY: Lumbar back pain, M54.50 COMPARISON: No relevant comparison available. TECHNIQUE: Axial, Coronal, and Sagittal CT images were created without I.V. contrast material. Dose reduction techniques were achieved by using automated exposure control and/or adjustment of mA and/or kV according to patient size and/or use of iterative reconstruction technique. FINDINGS: PARASPINAL AREA: Normal with no visible mass. BONES: Rotatory levocurvature centered at the L2-L3 level. Moderate degenerative spondylosis and facet osteoarthropathy DISC LEVELS: 12-L1: Early degenerative disc disease is present without focal protrusion or neural impingement. L1-L2: Early degenerative disc disease is present without focal protrusion or neural impingement. L2-L3: Disc collapse with endplate sclerosis. Mild to moderate diffuse disc/osteophyte complex. No central or foraminal stenosis L3-L4: Mild disc space narrowing. Mild disc/osteophyte complex and facet osteoarthropathy. No central or foraminal stenosis L4-L5: Posterior broad-based disc herniation extending up to 5 mm. Bilateral facet osteoarthropathy. No central canal stenosis or right foraminal stenosis. Mild narrowing of the left neural foramen L5-S1: Disc collapse with endplate sclerosis. Mild to moderate diffuse disc/osteophyte complex and facet osteoarthropathy. No central canal or right foraminal stenosis. Moderate narrowing of the left neural foramen, sagittal image 18 CT/CT lumbar spine wo con IMPRESSION: Degenerative changes resulting in left L4-L5 and right L5-S1 foraminal stenosis Electronically authenticated by: MINE GARCIA Date: 04/13/2024 08:15
== END 2024-04-13 07:43 | disposition home or self-care (01) ==
LOC: CT 07:43
PROVIDERS: PCP Family Medicine; Visit Provider Family Medicine
DX: M54.50 Low back pain, unspecified (principal); M51.369 Other intervertebral disc degeneration, lumbar region without mention of lumbar back pain or lower extremity pain
CPT/HCPCS: 72131

== ENCOUNTER 2024-04-29 09:53 | Outpatient (OUT) | payer MEDICARE, SELFPAY ==
--- OUTSIDE RECORDS SUMMARY | 2024-04-29 10:13 | XMS_ITS | CCD ---
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 Name Role Phone GISELA, DR SAVANNA Willis [...] Unavailable HIGGINS, DR SAVANNA Willis Attending Unavailable [place], DR MINE Barriga Consulting Unavailable HIGGINS, DR SAVANNA Willis Admitting Unavailable HIGGINS, DR SAVANNA Willis Consulting Unavailable HIGGINS, DR SAVANNA Willis Attending Unavailable HIGGINS, DR SAVNANA Willis Admitting Unavailable BIRGIT, DR PB Mitchell [...] Higgins Unavailable SAVANNA HIGGINS Primary Care Physician [phone] Roman GUAN Attending Unavailable SHANNON, Roman Mitchell [...] take 1 tablet by mouth once daily [place]-3 Fish Oil 1 tab, Oral, Daily, Refill(s) [...] day(s), # 30 cap(s), Refills(s) 0, Pharmacy: [facility]/pharmacy #[id number], 56.1, kg, 09/17/23 8:03:00 EDT, Weight Dosing [...] CT Reporton 10-15-2023 RAD - CT Report [id number]# 1.00TIFF Najma [facility] Ambulatory Visit Summaryon 0 10-13-2023 Ambulatory [...] Vitamins oral capsule) omega-3 polyunsaturated fatty acids ([place]-3 Fish Oil) tamsulosin (Flomax 0.4 mg Cap) [...] [facility] [address] , [place] [address] [phone] Medications What How Much When Instructions Unchanged [...] or concerns Unchanged omega-3 polyunsaturated fatty acids ([place]-3 Fish Oil) 1 tab By Mouth Every [...] groin. (more content not included)... Normal [facility] Patient Educationon 10-13-19 24 Patient Education [...] these instructions at home: Medicines ? Take iaro-bge-rivwfiw and prescription medicines only as told by [...] provider. Document Revised: 12/31/2021 Document Reviewed: 12/31/2021 [employer] Patient Education ? 2022 Epyon. uchoose [facility] Urology Office/Clinic Noteon 10-13-2023 Urology Office/Clinic [...] pass, required surgery 2 years ago in [place] Was told at this time that she had a puncture in her kidney that would heal. Follow-up With When Contact Information SHANNON SALGUERO, Roman Mitchell, URL [facility] [address], [place] [address]- [phone] Additional Instructions: f/u pending CT scan Patient Education Kidney Stones, Wbtw-ge-Aztr Anabella Webber, personally scribed for Dr. Guan [...] Vitamins oral capsule, 1 cap(s), Oral, Daily [place]-3 Fish Oil, 1 tab, Oral, Daily Osteo [...] virus vaccine, inactivated 02/14/2023 Recorded SARS-CoV-2 (COVID-19) [id number] 03/12/2022 Recorded 2023-10-13: TPV80 influenza virus vaccine, inactivated 02/28/2022 Recorded SARS-CoV-2 (COVID-19) mRNA-1273 vaccine 11/09/2021 Recorded 2023-10-13: TPV80 SARS-CoV-2 (COVID-19) mRNA-12 (more content not included)... Normal [facility] Comment on above: Result Comment: Elec tronically Signed By: Roman GUAN MD\.br\Date and Time Signed: 10/13/23 13:41 EDT\.br\Electronically Co-Signed By: Anabella Villalta\.br\Date and Time Co-Signed: 10/13/23 13:39 EDT RAD - MISCon 10-12-2023 RAD - MIS [id number] #1.00TIFF Normal [facility] ED Note-Physicianon 09-18-19 ED Note-Physician [id number] 8#1.00TIFF Normal [facility] Formson 09-18-2023 Forms [id number] #1.00TIFF Normal [facility] RAD - CT Reporton 09-18-2023 RAD - CT Report [id number] 8#1.00TIFF Normal [facility] RAD - MISCon 09-18-2023 RAD - MISC [id number] 1#1.00TIFF Normal [facility] RAD - MIS [id number]# 1.00TIFF Normal [facility] RAD - MISC [id number] 9#1.00TIFF Normal [facility] Ambulatory Visit Summaryon 0 09-17-2023 [...] Vitamins oral capsule) omega-3 polyunsaturated fatty acids ([place]-3 Fish Oil) zolmitriptan (Zomig 5 mg oral [...] SALGUERO, Roman Mitchell Where: [facility] Patient Educationon 09-17-19 24 Patient Education Urology [...] these instructions at home: Medicines ? Take tuuq-ork-mwcpbfk and prescription medicines only as told by [...] (more content not included)... Normal [facility] Urology Office/Clinic Noteon 09-17-2023 Urology Office/Clinic Note Chief Complaint New pt HPI Staff 1 week follow up w/[facility]-09/15/23-[facility] Pt was seen at [facility] on 09/09/23 due to abdominal [...] pass, required surgery 2 years ago in [place] Was told at this time that [...] 30 ct. SEs discussed. Rx sent to [facility] [place]. -High fluid intake. -Pt to call or go to the ER if he were to experience fever, shaking, chills, uncontrolled nausea, vomiting, or pain. Follow-up With When Contact Information SHANNON SALGUERO, Roman Mitchell, URL [facility] [address] [place] [address]- Additional Instructions: 3 weeks with [facility] Patient [...] Vitamins oral capsule, 1 cap(s), Oral, Daily [place]-3 Fish Oil, 1 tab, Oral, Daily Osteo [...] (more content not included)... Normal [facility] Comment on above: Result Comment: Elec tronically Signed By: Roman GUAN MD\.br\Date and Time Signed: 09/17/23 08:41 EDT\.br\Electronically Co-Signed By: Cynthia Jones\.br\Date and Time Co-Signed: 09/17/23 08:39 EDT Basophils Auto (Bld) [#/Vol] on 09-09-2023 Basophils (Bld) [#/Vol] 0.0 10 3/uL 0.0-0.1 [facility] Basophils/100 WBC Auto (Bld) on 09-09-2023 Basophils/100 WBC (Bld) 0.4 % 0.2-2.0 [facility] Casts typing in urine sedime nt by light microscopyon 09-09-2023 Casts LM Nom (Urine sed) NONE SEEN #/LPF NONE SEEN [facility] Eosinophils/100 WBC Auto (Bl d)on 09-09-2023 Eosinophils/100 WBC (Bld) 1.1 % 0.9-7.0 [facility] Erythrocyte distribution wid th Auto (RBC) [Ratio]on 09-09-2023 Erythrocyte distribution width (RBC) [Ratio] 13.0 % 11.0-15.0 [facility] Estimated glomerular filtrat ion rate (GFR) non- Americanon 09-09-2023 GFR/1.73 sq M.predicted among non-blacks MDRD (S/P/Bld) [Vol rate/Area] 52 mL/min/{1.73_m2} Low >=60 [facility] Globulin Calc (S) [Mass/Vol] on 09-09-2023 Globulin (S) [Mass/Vol] 3.5 g/dL [facility] Hematocrit Auto (Bld) [Volum e fraction]on 09-09-2023 Hematocrit (Bld) [Volume fraction] 39.0 % 36.0-48.0 [facility] Hemoglobin [Mass/volume] in Bloodon 09-09-2023 Hemoglobin (Bld) [Mass/Vol] 12.6 g/dL 12.0-16.0 [facility] Laboratory - Chemistry and C hemistry - challengeon 09-09-2023 Albumin [Mass/Vol] 3.6 g/dL 3.4-5.0 [facility] ALP [Catalytic activity/Vol] 74 U/L 46-116 [facility] ALT [Catalytic activity/Vol] 30 U/L 14-59 [facility] AST [Catalytic activity/Vol] 24 U/L 15-37 [facility] Bilirubin [Mass/Vol] 0.5 mg/dL 0.2-1.0 [facility] Calcium [Mass/Vol] 9.8 mg/dL 8.5-10.1 [facility] Chloride [Moles/Vol] 102 mmol/L 98-107 [facility] CO2 [Moles/Vol] 31.2 mmol/L 21.0-32.0 [facility] Creatinine [Mass/Vol] 1.01 mg/dL 0.55-1.02 [facility] GFR/1.73 sq M.predicted MDRD (S/P/Bld) [Vol rate/Area] mL/min/{1.73_m2} >=60 [facility] Glucose [Mass/Vol] 100 mg/dL 74-106 [facility] Lipase [Catalytic activity/Vol] 25.0 U/L 16.0-77.0 [facility] Potassium [Moles/Vol] 3.9 mmol/L 3.5-5.1 [facility] Protein [Mass/Vol] 7.1 g/dL 6.4-8.2 [facility] Sodium [Moles/Vol] 140 mmol/L 136-145 [facility] Urea nitrogen [Mass/Vol] 22.0 mg/dL High 7.0-18.0 [facility] Urea nitrogen/Creatinine [Mass ratio] 21.8 mg/mg [facility] Bilirubin Ql (U) Negative NEGATIVE [facility] Glucose (U) [Mass/Vol] Negative NEGATIVE [facility] Ketones Ql (U) Negative NEGATIVE [facility] pH (U) 6.0 [pH] 5.0-9.0 [facility] Specific gravity (U) [Rel density] 1.020 1.005-1.025 [facility] Urobilinogen Qn (U) 0.2 {Sosa'U}/dL 0.2-1.0 [facility] Laboratory - Hematology and Cell countson 09-09-2023 Immature granulocytes/100 WBC (Bld) 0.3 % 0.0-0.5 [facility] Laboratory - Specimen inform ationon 09-09-2023 Appearance (U) CLEAR CLEAR [facility] Color (U) DK. YELLOW YELLOW [facility] Laboratory - Urinalysison Amorphous sediment LM Ql (Urine sed) RARE [facility] Leukocyte esterase Test strip Ql (U) TRACE Abnormal NEGATIVE [facility] Nitrite Ql (U) Negative NEGATIVE [facility] Protein Ql (U) Negative NEG/TRACE [facility] Leukocytes [#/volume] correc bill for nucleated erythrocytes in Blood by Automated counon 09-09-2023 WBC corrected for nucl RBC Auto (Bld) [#/Vol] 10.7 10 3/uL 4.0-11.0 [facility] Lymphocytes Auto (Bld) [#/Vo l]on 09-09-2023 Lymphocytes (Bld) [#/Vol] 1.5 10 3/uL 1.2-3.8 [facility] Lymphocytes/100 WBC Auto (Bl d)on 09-09-2023 Lymphocytes/100 WBC (Bld) 13.7 % Low 20.5-60.0 [facility] MCH Auto (RBC) [Entitic mass ]on 09-09-2023 MCH (RBC) [Entitic mass] 31.2 pg 26.7-34.0 [facility] MCHC Auto (RBC) [Mass/Vol]on 09-09-2023 MCHC (RBC) [Mass/Vol] 32.3 g/dL 29.9-35.2 [facility] MCV Auto (RBC) [Entitic vol] on 09-09-2023 MCV (RBC) [Entitic vol] 96.5 fL 81.0-99.0 [facility] Monocytes Auto (Bld) [#/Vol] on 09-09-2023 Monocytes (Bld) [#/Vol] 1.0 10 3/uL High 0.3-0.8 [facility] Monocytes/100 WBC Auto (Bld) on 09-09-2023 Monocytes/100 WBC (Bld) 9.5 % 1.7-12.0 [facility] Mucus LM Ql (Urine sed)on Mucus Ql (Urine sed) NONE SEEN NONE SEEN [facility] Neutrophils Auto (Bld) [#/Vo l]on 09-09-2023 Neutrophils (Bld) [#/Vol] 8.0 10 3/uL High 1.4-6.5 [facility] Neutrophils/100 WBC Auto (Bl d)on 09-09-2023 Neutrophils/100 WBC (Bld) 75.0 % 43.0-75.0 [facility] No Panel Informationon 09-08 Eosinophils # (Auto) 0.1 10 3/uL 0.0-0.7 [facility] Immature Granulocyte # (Auto) 0.03 10 3/uL 0.00-0.03 [facility] Urine Bacteria NONE SEEN #/HPF NONE SEEN [facility] Urine Culture Reflexed NO [facility] Urine Microscopic Review YES [facility] Urine Occult Blood LARGE Abnormal NEGATIVE [facility] Urine Other Crystals Seen #/HPF Abnormal None Seen [facility] Urine RBC 10-20 #/HPF Abnormal 0-2 [facility] Urine Squamous Epithelial Cells NONE SEEN #/LPF NONE/RARE [facility] Urine Uric Acid Crystals FEW [facility] Urine WBC 2-5 #/HPF Abnormal NONE SEEN [facility] Platelet mean volume Auto (B ld) [Entitic vol]on 09-09-2023 Platelet mean volume (Bld) [Entitic vol] 9.5 fL 9.5-13.5 [facility] Platelets Auto (Bld) [#/Vol] on 09-09-2023 Platelets (Bld) [#/Vol] 240 10 3/uL 150-450 [facility] RBC Auto (Bld) [#/Vol]on RBC (Bld) [#/Vol] 4.04 10 6/uL Low 4.20-5.40 [facility] Serum or plasma albumin/glob ulin mass ratioon 09-09-2023 Albumin/Globulin [Mass ratio] 1.0 {ratio} [facility] Serum or plasma anion gap de terminationon 09-09-2023 Anion gap [Moles/Vol] 10.7 mmol/L [facility] XR RIBS LT PA Stephen [...] by: PB GENAO Date: 2022-10-02 11:51 Normal [facility] XR CSPINE 2_3 VIEWSon 2022 [...] ISAEL GRIFFIN Date: 2022-09-05 15:58 Normal [facility] CBC AUTO DIFFon 12-31-2021 BASO # 0.0 103/ul Normal 0.0-0.1 [facility] Comment on above: Performed By: #### C BC #### [facility] [address] [address] [address] Radha Land Basophils/100 WBC (Bld) 0.2 % Normal 0.2-2.0 [facility] Comment on above: Performed By: #### C BC #### [facility] [address] [place] [address] Dr. Radha Land EO # 0.2 103/ul Normal 0.0-0.7 [facility] Comment on above: Performed By: #### C BC #### [facility] [address] [place] [address] Dr. Radha Land Eosinophils/100 WBC (Bld) 1.7 % Normal 0.9-7.0 [facility] Comment on above: Performed By: #### C BC #### [facility] [address] [place] [address] Dr. Radha Land Erythrocyte distribution width (RBC) [Ratio] 13.4 % Normal 11.0-15.0 [facility] Comment on above: Performed By: #### C BC #### [facility] [address] [place] [address] Dr. Radha Land Hematocrit (Bld) [Volume fraction] 40.9 % Normal 36.0-48.0 [facility] Comment on above: Performed By: #### C BC #### [facility] [address] [place] [address] Dr. Radha Land Hemoglobin (Bld) [Mass/Vol] 13.1 g/dL Normal 12.0-16.0 [facility] Comment on above: Performed By: #### C BC #### [facility] [address] [place] [address] Dr. Radha Land IG # 0.05 10e3/ul Critically high 0.00-0.03 [facility] Comment on above: Performed By: #### C BC #### [facility] [address] [place] [address] Dr. Radha Land IG % 0.4 % Normal 0.0-0.5 [facility] Comment on above: Performed By: #### C BC #### [facility] [address] [place] [address] Dr. Radha Land LYMPH # 1.4 103/ul Normal 1.2-3.8 [facility] Comment on above: Performed By: #### C BC #### [facility] [address] [address] [address] Radha Land Lymphocytes/100 WBC (Bld) 10.8 % Critically low 20.5-60.0 [facility] Comment on above: Performed By: #### C BC #### [facility] [address] [place] [address] Dr. Radha Land MANUAL DIFF REQ NO Normal [facility] Comment on above: Performed By: #### C BC #### [facility] [address] [place] [address] Dr. Radha Land MCH (RBC) [Entitic mass] 31.5 pg Normal 26.7-34.0 [facility] Comment on above: Performed By: #### C BC #### [facility] [address] [place] [address] Dr. Radha Land MCHC (RBC) [Mass/Vol] 32.0 g/dL Normal 29.9-35.2 [facility] Comment on above: Performed By: #### C BC #### [facility] [address] [place] [address] Dr. Radha Land MCV (RBC) [Entitic vol] 98.3 fL Normal 81.0-99.0 [facility] Comment on above: Performed By: #### C BC #### [facility] [address] [place] [address] Dr. Radha Land MONO # 1.3 103/ul Critically high 0.3-0.8 [facility] Comment on above: Performed By: #### C BC #### [facility] [address] [place] [address] Dr. Radha Land Monocytes/100 WBC (Bld) 9.7 % Normal 1.7-12.0 [facility] Comment on above: Performed By: #### C BC #### [facility] [address] [place] [address] Dr. Radha Land NEUT # 10.2 103/ul Critically high 1.4-6.[address] [facility] Comment on above: Performed By: #### C BC #### [facility] [address] [address] [address] Radha Land Neutrophils/100 WBC (Bld) 77.2 % Critically high 43.0-75.0 [facility] Comment on above: Performed By: #### C BC #### [facility] [address] [address] [address] Radha Land Platelet mean volume (Bld) [Entitic vol] 9.7 fL Normal 9.5-13.5 [facility] Comment on above: Performed By: #### C BC #### [facility] [address] [address] [address] Radha Land PLT 235 103/ul Normal 150-450 [facility] Comment on above: Performed By: #### C BC #### [facility] [address] [address] [address] Radha Land RBC 4.16 106/ul Critically low 4.20-5.40 [facility] Comment on above: Performed By: #### C BC #### [facility] [address] [address] [address] Radha Land WBC 13.2 103/ul Critically high 4.0-11.[address] [facility] Comment on above: Performed By: #### C BC #### [facility] [address] [address] [address] Radha Land SED RATE WESTERGRENon 2021 SED RATE 35 mm/hr Critically high <=30 [facility] Comment on above: Performed By: #### S EDR #### [facility] [address] [address] [address] Radha Land CBC AUTO DIFFon 11-07-2021 BASO # 0.0 103/ul Normal 0.0-0.1 [facility] Comment on above: Performed By: #### C BC ####[facility] [address] [address]Dr. Radha Land Basophils/100 WBC (Bld) 0.3 % Normal 0.2-2.0 [facility] Comment on above: Performed By: #### C BC ####[facility] [address] [address]Dr. Radha Land EO # 0.2 103/ul Normal 0.0-0.7 [facility] Comment on above: Performed By: #### C BC ####[facility] [address] [address]Dr. Radha Land Eosinophils/100 WBC (Bld) 3.3 % Normal 0.9-7.0 [facility] Comment on above: Performed By: #### C BC ####[facility] [address] [address]Dr. Radha Land Erythrocyte distribution width (RBC) [Ratio] 13.2 % Normal 11.0-15.0 [facility] Comment on above: Performed By: #### C BC ####[facility] [address] [address]Dr. Radha Land Hematocrit (Bld) [Volume fraction] 41.9 % Normal 36.0-48.0 [facility] Comment on above: Performed By: #### C BC ####[facility] [address] [address]Dr. Radha Land Hemoglobin (Bld) [Mass/Vol] 13.4 g/dL Normal 12.0-16.0 [facility] Comment on above: Performed By: #### C BC ####[facility] [address] [address]Dr. Radha Land IG # 0.01 10e3/ul Normal 0.00-0.03 [facility] Comment on above: Performed By: #### C BC ####[facility] [address] [address]Dr. Radha Land IG % 0.2 % Normal 0.0-0.5 [facility] Comment on above: Performed By: #### C BC ####[facility] [address] [address]Dr. Radha Land LYMPH # 1.6 103/ul Normal 1.2-3.8 [facility] Comment on above: Performed By: #### C BC ####[facility] [address] [address]Dr. Radha Land Lymphocytes/100 WBC (Bld) 27.5 % Normal 20.5-60.0 [facility] Comment on above: Performed By: #### C BC ####[facility] [address] [address]Dr. Radha Land MANUAL DIFF REQ NO Normal [facility] Comment on above: Performed By: #### C BC ####[facility] [address] [address]Dr. Radha Land MCH (RBC) [Entitic mass] 31.2 pg Normal 26.7-34.0 [facility] Comment on above: Performed By: #### C BC ####[facility] [address] [address]Dr. Radha Land MCHC (RBC) [Mass/Vol] 32.0 g/dL Normal 29.9-35.2 [facility] Comment on above: Performed By: #### C BC ####[facility] [address] [address]Dr. Radha Emery MCV (RBC) [Entitic vol] 97.7 fL Normal 81.0-99.0 [facility] Comment on above: Performed By: #### C BC ####[facility] [address] [place], [place] [address]Dr. Radha Emery MONO # 0.7 103/ul Normal 0.3-0.8 [facility] Comment on above: Performed By: #### C BC ####[facility] [address] [address]Dr. Radha Emery Monocytes/100 WBC (Bld) 12.4 % Critically high 1.7-12.0 [facility] Comment on above: Performed By: #### C BC ####[facility] [address] [address]Dr. Jacquelyncharlotte Emery NEUT # 3.2 103/ul Normal 1.4-6.5 [facility] Comment on above: Performed By: #### C BC ####[facility] [address] [place], [place] [address]Zv. Radha Land Neutrophils/100 WBC (Bld) 56.3 % Normal 43.0-75.0 [facility] Comment on above: Performed By: #### C BC ####[facility] [address] [place], [place] [address]Za. Radha Land Platelet mean volume (Bld) [Entitic vol] 9.4 fL Critically low 9.5-13.5 [facility] Comment on above: Performed By: #### C BC ####[facility] [address] [place], [place] [address]Eg. Radha Land PLT 226 103/ul Normal 150-450 [facility] Comment on above: Performed By: #### C BC ####[facility] [address] [place], [place] [address]Bd. Radha Land RBC 4.29 106/ul Normal 4.20-5.40 [facility] Comment on above: Performed By: #### C BC ####[facility] [address] [place], [place] [address]Jr. Radha Land WBC 5.7 103/ul Normal 4.0-11.0 [facility] Comment on above: Performed By: #### C BC ####[facility] [address] [place], [place] [address]Wm. Radha Land LIPID PROFILEon 11-07-2021 CHOL-HDL RATIO NORM SEE BELOW Normal [facility] Comment on above: Result Comment: 3.3 - 4.4 LOW RISK 4.4 - 7.1 AVERAGE RISK 7.1 - 11.0 MODERATE RISK >11.0 HIGH RISK Performed By: #### L IPID, CMP #### [facility] [address] [place], [place] [address] Dr. Radha Land Cholesterol [Mass/Vol] 257 mg/dL Critically high <=200 [facility] Comment on above: Performed By: #### L IPID, CMP #### [facility] [address] [place], [place] [address] Dr. Radha Land Cholesterol in HDL [Mass/Vol] 76 mg/dL Critically high 40-60 [facility] Comment on above: Performed By: #### L IPID, CMP #### [facility] [address] [address] [address] Radha Land Cholesterol in LDL [Mass/Vol] 163.8 mg/dL Normal [facility] Comment on above: Performed By: #### L IPID, CMP #### [facility] [address] [address] [address] Radha Land Cholesterol.total/Cho lesterol in HDL [Mass ratio] 3.4 {ratio} Normal [facility] Comment on above: Performed By: #### L IPID, CMP #### [facility] [address] [address] [address] Radha Land HDL NORMAL > or = 60 mg/dl - LOW CARDIOVASCULAR RISK <40 mg/dl - HIGH CARDIOVASCULAR RISK Normal [facility] Comment on above: Performed By: #### L IPID, CMP #### [facility] [address] [address] [address] Radha Land LDL CALC NORMAL SEE BELOW Normal [facility] Comment on above: Result Comment: <100 mg/dl OPTIMAL 100 - 129 mg/dl NEAR OR ABOVE OPTIMAL 130 - 159 mg/dl BORDERLINE HIGH 160 - 189 mg/dl HIGH >190 mg/dl VERY HIGH Performed By: #### L IPID, CMP #### [facility] [address] [address] [address] Radha Land Triglyceride [Mass/Vol] 86 mg/dL Normal <=150 [facility] Comment on above: Performed By: #### L IPID, CMP #### [facility] [address] [address] [address] Radha Land VLDL CALC 17.2 mg/dL Normal [facility] Comment on above: Performed By: #### L IPID, CMP #### [facility] [address] [place] [address] Dr. Radha Land MG MAMM SCREEN 3D GIANCARLO CADon 11-07-2021 MG MAMM SCREEN 3D GIANCARLO CAD Patient: EDUARDO LEA. Exam Date: 11/07/2021 : 1940 Gender:F Ordering : DR SAVANNA HIGGINS M.D. Admission #: [id number] Family : Order #: [id number] CLICK HERE TO VIEW EXAM RADIOLOGY REPORT [...] ovarian cancer at age 47. LOCATION: [facility] BREAST COMPOSITION: Extremely dense, which lowers the [...] Arriaga MD on 11/07/2021 at 11:21 Normal [facility] PROF 14(COMP METB)on 022 Albumin [Mass/Vol] 3.6 g/dL Normal 3.4-5.0 [facility] Comment on above: Performed By: #### L IPID, CMP #### [facility] [address] [place] [address] Dr. Radha Land Albumin/Globulin [Mass ratio] 0.9 {ratio} Normal [facility] Comment on above: Performed By: #### L IPID, CMP #### [facility] [address] [address] [address] Radha Land ALP [Catalytic activity/Vol] 79 U/L Normal 46-116 [facility] Comment on above: Performed By: #### L IPID, CMP #### [facility] [address] [place], [place] [address] Dr. Radha Land ALT [Catalytic activity/Vol] 32 U/L Normal 14-59 [facility] Comment on above: Performed By: #### L IPID, CMP #### [facility] [address] [address] [address] Radha Land Anion gap [Moles/Vol] 6.1 mmol/L Normal [facility] Comment on above: Performed By: #### L IPID, CMP #### [facility] [address] [address] [address] Radha Land AST [Catalytic activity/Vol] 28 U/L Normal 15-37 [facility] Comment on above: Performed By: #### L IPID, CMP #### [facility] [address] [address] [address] Radha Land Bilirubin [Mass/Vol] 0.6 mg/dL Normal 0.2-1.0 [facility] Comment on above: Performed By: #### L IPID, CMP #### [facility] [address] [address] [address] Radha Land Calcium [Mass/Vol] 9.1 mg/dL Normal 8.5-10.1 [facility] Comment on above: Performed By: #### L IPID, CMP #### [facility] [address] [address] [address] Radha Land Chloride [Moles/Vol] 104 mmol/L Normal 98-107 [facility] Comment on above: Performed By: #### L IPID, CMP #### [facility] [address] [address] [address] Radha Land CO2 [Moles/Vol] 31.0 mmol/L Normal 21.0-32.0 [facility] Comment on above: Performed By: #### L IPID, CMP #### [facility] [address] [address] [address] Radha Land Creatinine [Mass/Vol] 0.86 mg/dL Normal 0.55-1.02 [facility] Comment on above: Performed By: #### L IPID, CMP #### [facility] [address] [address] [address] Radha Land EGFR-AF BOTSWANAN >60 Normal >=[address] [facility] Comment on above: Performed By: #### L IPID, CMP #### [facility] [address] [address] [address] Radha Land EGFR-NON AF BOTSWANAN >60 Normal >=60 [facility] Comment on above: Performed By: #### L IPID, CMP #### [facility] [address] [address] [address] Radha Land Globulin (S) [Mass/Vol] 4.1 g/dL Normal [facility] Comment on above: Performed By: #### L IPID, CMP #### [facility] [address] [address] [address] Radha Land Glucose [Mass/Vol] 89 mg/dL Normal 74-106 [facility] Comment on above: Performed By: #### L IPID, CMP #### [facility] [address] [address] [address] Radha Land Potassium [Moles/Vol] 4.1 mmol/L Normal 3.5-5.1 [facility] Comment on above: Performed By: #### L IPID, CMP #### [facility] [address] [address] [address] Radha Land Protein [Mass/Vol] 7.7 g/dL Normal 6.4-8.2 [facility] Comment on above: Performed By: #### L IPID, CMP #### [facility] [address] [address] [address] Radha Land Sodium [Moles/Vol] 137 mmol/L Normal 136-145 [facility] Comment on above: Performed By: #### L IPID, CMP #### [facility] [address] [address] [address] Radha Land Urea nitrogen [Mass/Vol] 12.0 mg/dL Normal 7.0-18.0 [facility] Comment on above: Performed By: #### L IPID, CMP #### [facility] [address] [address] [address] Radha Land Urea nitrogen/Creatinine [Mass ratio] 14.0 mg/mg Normal [facility] Comment on above: Performed By: #### L IPID, CMP #### [facility] [address] [address] [address] Radha Land Vital Signs Date Time Vital Sign Value Performing Clinician Facility 11-18-2023 10:53-0400 Body height 165.1 cm [facility] 11-18-2023 10:53-0400 Body mass index (BMI) [Ratio] 20.5 kg/m2 [facility] 11-18-2023 10:53-0400 Body weight 55.79 kg [facility] 11-18-2023 10:53-0400 Diastolic blood pressure 55 mm[Hg] [facility] 11-18-2023 10:53-0400 Heart rate 65 /min [facility] 11-18-2023 10:53-0400 Systolic blood pressure 132 mm[Hg] [facility] 11-06-2023 11:11-0400 Body height 165.1 cm [facility] 11-06-2023 11:11-0400 Body mass index (BMI) [Ratio] 20.2 kg/m2 [facility] 11-06-2023 11:11-0400 Body weight 55.33 kg [facility] 11-06-2023 11:11-0400 Diastolic blood pressure 67 mm[Hg] [facility] 11-06-2023 11:11-0400 Heart rate 61 /min [facility] 11-06-2023 11:11-0400 Systolic blood pressure 124 mm[Hg] [facility] 10-13-2023 12:31-0400 Blood Pressure Location Roman GUAN [facility] 10-13-2023 12:31-0400 Diastolic blood pressure 78 mm[Hg] Roman GUAN [facility] 10-13-2023 12:31-0400 Heart rate 80 /min Roman GUAN [facility] 10-13-2023 12:31-0400 Respiratory rate 16 /min Roman GUAN [facility] 10-13-2023 12:31-0400 Systolic blood pressure 134 mm[Hg] Roman GUAN [facility] 09-30-2023 14:31-0400 Body height 165.1 cm [facility] 09-30-2023 14:31-0400 Body mass index (BMI) [Ratio] 20.5 kg/m2 [facility] 09-30-2023 14:31-0400 Body weight 55.79 kg [facility] 09-30-2023 14:31-0400 Diastolic blood pressure 62 mm[Hg] [facility] 09-30-2023 14:31-0400 Heart rate 64 /min [facility] 09-30-2023 14:31-0400 Systolic blood pressure 104 mm[Hg] [facility] 09-17-2023 08:00-0400 Blood Pressure Location Roman GUAN [facility] 09-17-2023 08:00-0400 Diastolic blood pressure 80 mm[Hg] Roman GUAN [facility] 09-17-2023 08:00-0400 Heart rate 64 /min Romanarminda GUAN [facility] 09-17-2023 08:00-0400 Systolic blood pressure 132 mm[Hg] Romanarminda GUAN [facility] 01-10-2023 09:45-0400 Body height 165.1 cm Savanna Higgins Other [facility] 01-10-2023 09:45-0400 Body mass index (BMI) [Ratio] 20.87 kg/m2 Savanna Higgins Other [facility] 01-10-2023 09:45-0400 Body weight 56.88 kg Savanna Higgins Other [facility] Other 01-10-2023 09:45-0400 Diastolic blood pressure 78 mm[Hg] Savanna Higgins Other [facility] Other 01-10-2023 09:45-0400 Systolic blood pressure 142 mm[Hg] Savanna Higgins Other [facility] Other 10-28-2022 08:30-0400 Body height 165.1 cm Savanna Higgins Other [facility] Other 10-28-2022 08:30-0400 Body mass index (BMI) [Ratio] 20.47 kg/m2 Savanna Higgins Other [facility] Other 10-28-2022 08:30-0400 Body weight 55.79 kg Savanna Higgins Other [facility] Other 10-28-2022 08:30-0400 Diastolic blood pressure 47 mm[Hg] Savanna Higgins Other [facility] Other 10-28-2022 08:30-0400 Systolic blood pressure 124 mm[Hg] Savanna Higgins Other [facility] Other Encounters Encounter Date Encounter Type Care Provider Facility Start: 10-15-2024 ambulatory Roman Mota ty:[facility] [place] Start: 03-16-2024 End: 03-16-2024 ambulatory [facility] Work Phone: Start: 03-16-2024 End: 03-16-2024 Patient encounter procedure [facility] Work Phone: Start: 02-02-2024 End: 02-02-2024 ambulatory Dulce Cifuentes MD Facility: [facility] Start: 01-05-2024 End: 01-05-2024 ambulatory REBECA ROSENBERG Not Available Start: 12-09-2023 End: 12-09-2023 ambulatory [facility] Work Phone: Start: 12-09-2023 End: 12-09-2023 Patient encounter procedure [facility] Work Phone: Start: 11-18-2023 End: 11-18-2023 ambulatory [facility] Work Phone: Start: 11-18-2023 End: 11-18-2023 Patient encounter procedure [facility] Work Phone: Start: 11-10-2023 Patient encounter procedure [facility] Start: 11-06-2023 End: 11-06-2023 Patient encounter procedure [facility] Work Phone: Start: 10-13-2023 End: 10-13-2023 ambulatory Roman GUAN Facility:[facility] Start: 10-13-2023 End: 10-13-2023 Patient encounter procedure Roman GUAN [facility] Start: 09-30-2023 End: 09-30-2023 ambulatory [facility] Work Phone: Start: 09-30-2023 End: 09-30-2023 Patient encounter procedure [facility] Work Phone: Start: 09-17-2023 End: 09-17-2023 ambulatory Roman GUAN Facility:[facility] Start: 09-17-2023 End: 09-17-2023 Patient encounter procedure Roman GUAN [facility] [place] Start: 09-11-2023 ambulatory Roman GUAN Facility :[facility] Start: 09-09-2023 Non-patient / Non-visit [facility] [employer] Work Phone: Start: 08-26-2023 End: 08-26-2023 ambulatory [facility] Work Phone: Start: 08-26-2023 End: 08-26-2023 Patient encounter procedure [facility] Work Phone: Start: 03-28-2023 End: 03-28-2023 ambulatory Savanna Higgins Other [facility] Other Start: 03-28-2023 Telephone encounter Savanna Higgins [facility] Start: 01-31-2023 End: 01-31-2023 ambulatory Savanna Higgins Other [facility] Other Start: 01-31-2023 Nursing evaluation o f patient and report Savanna Higgins [facility] Start: 01-14-2023 End: 01-14-2023 ambulatory Savanna Higgins Other [facility] Other Start: 01-14-2023 Telephone encounter Savanna Gisela [facility] Start: 01-10-2023 End: 01-10-2023 ambulatory Savanna Higgins Other [facility] Other Start: 01-10-2023 Office outpatient visit 15 minutes Savanna Higgins [facility] Start: 10-28-2022 End: 10-28-2022 ambulatory Savanna Higgins Other [facility] Other Start: 10-28-2022 Patient encounter procedure Savanna Gisela [facility] Start: 10-24-2022 End: 10-24-2022 ambulatory Savanna Higgins Other [facility] Other Start: 10-24-2022 Telephone encounter Savanna Higgins [facility] Start: 10-08-2022 End: 10-08-2022 ambulatory AJ [...] 12-31-2021 Adult health examination Savanna Higgins Other [facility] Other Start: 12-31-2021 End: 01-01-[address] [...] Detail Author Diagnostic radiograp hy of abdomen [facility] MG Breast - bilatera l Screening [facility] Patient Education Low back pain in adults [facility] Work Phone: [facility] Immunizations Immunization Date Immunization Notes Care Provider Fa cility 03-16-2024 influenza, high dose seasonal, preservative-free [facility] 02-14-2023 influenza virus vaccine, unspecified formulation Roman GUAN [facility] 03-12-2022 SARS-CoV-2 (COVID-19 ) [id number] Roman GUAN [facility] Comment on above: Result Comment: 2023: [id number] 02-28-2022 influenza virus vaccine, split virus (incl. purified surface antigen) Savanna Higgins Other [facility] Other 02-28-2022 influenza virus vaccine, unspecified formulation [facility] 11-09-2021 SARS-CoV-2 (COVID-19 ) mRNA-1273 vaccine Roman GUAN [facility] Comment on above: Result Comment: 2023: [id number] 03-08-2021 SARS-CoV-2 (COVID-19 ) mRNA-1273 vaccine Roman GUAN [facility] 02-27-2021 influenza virus vaccine, split virus (incl. purified surface antigen) Savanna Higgins Other [facility] Other 02-27-2021 influenza virus vaccine, unspecified formulation [facility] 06-29-2020 SARS-CoV-2 (COVID-19 ) mRNA-1273 vaccine Roman GUAN [facility] 06-01-2020 SARS-CoV-2 (COVID-19 ) mRNA-1273 vaccine Roman GUAN [facility] 03-14-2020 zoster vaccine recombinant Roman GUAN [facility] 02-16-2020 influenza virus vaccine, split virus (incl. purified surface antigen) Savanna Higgins Other [employer] [facility] [employer] Other 02-16-2020 influenza virus vaccine, unspecified formulation [facility] 10-25-2019 pneumococcal polysaccharide vaccine, 23 valent Savanna Higgins Other [facility] 01-25-2019 influenza virus vaccine, unspecified formulation Roman GUAN [facility] 03-10-2018 pneumococcal conjuga te vaccine, 13 valent Savanna Higgins Other [facility] 02-14-2018 influenza virus vaccine, unspecified formulation Roman GUAN [facility] 01-08-2017 influenza virus vaccine, split virus (incl. purified surface antigen) Savanna Higgins Other [employer] [facility] [employer] Other 01-08-2017 influenza virus vaccine, unspecified formulation [facility] 02-06-2016 influenza virus vaccine, split virus (incl. purified surface antigen) Savanna Higgins Other [facility] [facility] [employer] Other 02-06-2016 influenza virus vaccine, unspecified formulation [facility] 03-24-2015 influenza virus vaccine, split virus (incl. purified surface antigen) Savanna Higgins Other [facility] [facility] [employer] Other 03-24-2015 influenza virus vaccine, unspecified formulation [facility] 02-26-2013 tetanus and diphther ia toxoids, adsorbed, preservative free, for adult use (5 Lf of tetanus toxoid and 2 Lf of diphtheria toxoid) Savanna Higgins Other [facility] Payers Date Payer Category Payer Medicare 2014 Medicare [id number] 1960 Medicare [id number] 1940 Unknown [id number] 2.16.84 [id number] 1940 Unknown [id number] 2.16.84 0.1.859389.3.579.2.593 1940 Unknown [id number] 2.16.84 0.1.536657.3.579.2.593 1940 Unknown [id number] 2.16.84 0.1.075757.3.579.2.593 1940 Unknown [id number] 2.16.84 0.1.159293.3.579.2.593 1940 Unknown [id number] 2.16.84 0.1.965719.3.579.2.593 1940 Unknown [id number] 2.16.84 0.1.261736.3.579.2.593 1940 Unknown [id number] 2.16.84 0.1.401033.3.579.2.593 1940 Unknown [id number] 2.16.84 0.1.950877.3.579.2.593 1940 Unknown [id number] 2.16.84 0.1.556051.3.579.2.593 1940 Unknown [id number] 2.16.84 0.1.248048.3.579.2.593 1940 Unknown [id number] 2.16.84 0.1.730850.3.579.2.593 1940 Unknown [id number] 2.16.8 40.1.971083.3.579.2.727 1940 Unknown [id number] 2.16.8 40.1.957496.3.579.2.727 1940 Unknown [id number] 2.16.8 40.1.769065.3.579.2.727 1940 Unknown [id number] 2.16.8 40.1.417126.3.579.2.727 1940 Unknown [id number] 2.16.84 0.1.388210.3.579.2.1259 1940 Unknown [id number] 2.16. 840.1.308191.3.579.2.196 Private Health Insurance [id number] Social History Date Type Detail Facility Unknown if ever smoked [facility] Other Sex [facility]igned At [facility] Start: 1940 Sex Assigned At Female F [facility] Start: 09-17-2023 End: 10-13-2023 Tobacco smoking status Never smoked tobacco (finding) [facility] Tobacco smoking status Never [facility] Functional Status Date Assessment Result Facility 10-13-2023 Functional Status N/A [facility] 09-17-2023 Functional Status N/A [facility] Clinical Notes 12-19-2021 to 10-13-2023 Note Date & Type Note Facility 10-13-2023 Hospital Discharg e instructions Patient Education 10/13/2023 13:39:08 Kidney Stones, Hnqp-zc-Nozq Kidney Stones Kidney stones are rock-like masses [...] Follow these instructions at home: Medicines Take mwxn-rbo-btmwpco and prescription medicines only as told by [...] provider. Document Revised: 12/31/2021 Document Reviewed: 12/31/2021 [employer] Patient Education 2022 [employer] Follow Up Care 09/17/2023 08:40:02 With:SHANNON SALGUERO, Roman Mitchell, URL Address: [facility] [address], [place] [address] [phone] When: Unknown [facility] [place] 09-17-2023 Hospital Discharg e instructions [...] Follow these instructions at home: Medicines Take ulci-xha-njcevpc and prescription medicines only as told by [...] provider. Document Revised: 08/07/2022 Document Reviewed: 08/07/2022 [employer] Patient Education 2022 [employer]. Follow Up Care 09/11/2023 08:49:49 With:SHANNON SALGUERO, Roman Mitchell, URL Address: [facility] [address] [place] [address]- When: Unknown [facility] 01-31-2023 Evaluation note Encounter Date Diagnosis Assessment Notes Jan, Seasonal allergic rhinitis, unspecified trigger (ICD-10 - J30.2) [facility] Other 09-01-2023 Evaluation note* Encounter Date Diagnosis Assessment Notes Treatment Notes Treatment Clinical Notes Jan, Piriformis syndrome of left side (ICD-10 - G57.02) Unable to add more tramadol - likely has pain clinic w [facility]. PT order printed. Add steroids. Also gave copies of home exercises. [facility] Other 06-19-2023 Evaluation note* Encounter Date Diagnosis [...] - order handwritten and given to pt [facility] Other 04-27-2023 NoteCONSULTATION CONSULTATION DATE: 09/05/2022 TO: [...] our patients to inform us about any kxuc-tzj-usqutxe medications or herbal remedies/nutritional supplements/alternative remedies. 2. [...] treatment options with their primary care provider.[id number] Note CONSULTATION PROCEDURE DATE: 12/25/2021 PREOPERATIVE DIAGNOSIS: [...] procedurally range of motion exercises are performed.[facility] 12-19-2021 NoteCONSULTATION CONSULTATION DATE: 12/19/2021 This is [...] where she was seen by the physician nutritional assistant in the office and received left [...] care, to be contacted [facility] Future Appointments Appointment Date:10/13/2023 12:15:00 PM Scheduled Provider:Roman GUAN MD Location:[facility] Appointment Type:URO Office Visit [facility] [place] [facility] [employer] Other Evaluation noteNo assessment information available [facility] Work Phone: Evaluation note* Diagnosis Onset Date Resolution Status Right lumbar pain acute [facility] Work Phone: Evaluation note* Diagnosis Onset Date Resolution Status Right lumbar pain acute Medicare annual wellness visit, subsequent acute Nephrolithiasis acute Screening mammogram for breast cancer acute [facility] Work Phone: Evaluation note* Diagnosis Onset Date Resolution Status Right lumbar pain acute Medicare annual wellness visit, subsequent acute Nephrolithiasis acute Screening mammogram for breast cancer acute Laceration of left lower leg without complication acute Lumbar back pain acute [facility] Work Phone: [employer] general Narrative - Reported* Type Description Date Medical History migraine headache Medical History dizziness Medical History tremors Surgical History hysterectomy Surgical History bunionectomy Surgical History stapedectomy Hospitalization History see above [facility] Other Hospital course Narrative No data available for this section [facility] [place] [employer] note No data available for this section [facility] [place] Summary Purpose Family History Relationship [...] DATE CREATED AUTHOR AUTHOR'S ORGANIZ ATION 11/26/[address] [place] [facility] DATE CREATED AUTHOR AUTHOR'S ORGANIZ ATION 01/06/2024 [facility] EPIC DATE CREATED AUTHOR AUTHOR'S ORGANIZ ATION 02/09/2024 [facility] REASON FOR VISIT (unrecogniz ed section [...] BE BASED ON THE PRIMARY CLINICAL RECORDS. [facility] [employer], [facility]. provides no warranty or guarantee of the accuracy or completeness of information in this document.
--- NOTE | 2024-04-29 10:20 | PM.CN ---
Consult Note: HPI Data of Consult Patient: known to practice within the last 3 years Requesting Physician: Ana Gracia NP Primary Care Provider: Savanna Guajardo MD Consult Narrative Reason for consult: chronic low back pain Narrative: Ninfa Franco a pleasant 83 year old female presents for evaluation of chronic low back pain. Patient has a chronic history of low back pain unresponsive to conservative medications including tylenol, OTC NSAIDs, heat, ice and PT. Patient recently underwent a L5/S1 STEVEN with 90% improvement in pain for 3 days before pain returned to baseline, recently underwent bilateral L3-4 L4-5 MBB #1 with less than 80% improvement and bilateral L2-3 L3-4 MBB without improvement. Patient continues to have moderate to severe low back pain, at this time no radiculopathy. Pain 8/10 increased with twisting pushing pulling standing bending and activity. Pain improved with diclofenac, lying down, and sleep. failed tramadol and hydrocodone-acetaminophen 5-325mg cc:: CC: Ana Gracia NP Review of Systems ROS Status of ROS 10 or more systems reviewed and unremarkable except as noted in history and below Musculoskeletal Reports: back pain PFSH PFSH Medical History Osteoarthritis ?M19.90 - Unspecified osteoarthritis, unspecified site (ICD-10) Hearing deficit ?H91.90 - Unspecified hearing loss, unspecified ear (ICD-10) Surgical History History of bunionectomy of left great toe ?Z98.890 - Other specified postprocedural states (ICD-10) History of stapedectomy ?Z90.09 - Acquired absence of other part of head and neck (ICD-10) History of cervical discectomy ?Z98.890 - Other specified postprocedural states (ICD-10) History of hysterectomy ?Z90.710 - Acquired absence of both cervix and uterus (ICD-10) Meds Home Medications and Allergies Home Medications ?Medication ?Instructions ?Recorded ?Confirmed ?Type calcium 500 mg-vitamin D3 100 1 tab PO DAILY 11/06/22 03/30/24 History unit-vitamin K 40 mcg chewable tablet diclofenac sodium 50 mg 50 mg PO BID 11/06/22 03/30/24 History tablet,delayed release glucosamine-chondroitin 250 mg-200 2 tab PO DAILY 11/06/22 03/30/24 History mg tablet (Osteo Bi-Flex) lactobacillus combo no.13 1 1 cap PO DAILY 11/06/22 03/30/24 History billion cell capsule,delayed release (Probiotic Pearls Complete) magnesium 200 mg tablet 400 mg PO DAILY 11/06/22 03/30/24 History meclizine 25 mg chewable tablet 25 mg PO DAILY 11/06/22 03/30/24 History (Antivert) multivitamin (Daily Multi-Vitamin 1 tab PO DAILY 11/06/22 03/30/24 History tablet) omega 9-xqh-uis-fish oil 1,200 mg 1 cap PO DAILY 11/06/22 03/30/24 History (144 mg-216 mg) capsule (Fish Oil) prasterone (dhea) 50 mg capsule 50 mg PO DAILY 11/06/22 03/30/24 History (DHEA) vitamin B complex (B 1 tab PO DAILY 11/06/22 03/30/24 History Complex-Vitamin B12 tablet) atenolol 50 mg tablet 50 mg PO DAILY 09/09/23 03/30/24 History ondansetron 4 mg disintegrating 4 mg PO Q8H PRN nausea and 09/09/23 03/30/24 Rx tablet vomiting 4 days #12 tabs tramadol 50 mg tablet 50 mg PO BID PRN pain #60 tabs 12/03/23 03/30/24 Rx diclofenac sodium 50 mg 50 mg PO BID #60 tabs 03/16/24 03/30/24 Rx tablet,delayed release tramadol 50 mg tablet 50 mg PO BID PRN pain #60 tabs 03/16/24 03/30/24 Rx hydrocodone 5 mg-acetaminophen 325 1 tab PO DAILY PRN pain #7 tabs 04/07/24 Rx mg tablet Allergies Allergy/AdvReac Type Severity Reaction Status Date / Time No Known Drug Allergies Allergy Verified 03/30/24 09:38 Exam Constitutional Documenting provider has reviewed patient's vital signs: yes Common normals: no apparent distress, oriented x3, healthy appearing, alert and well nourished General appearance: cooperative HENTN Common normals: normocephalic, hearing grossly normal bilaterally and moist oral mucous membranes Head and scalp: normocephalic Eye Common normals: PERRL Pupil: PERRL Neck & C-Spine Common normals: full ROM General: normal visual inspection Chest Common normals: inspection of chest normal Respiratory Common normals: normal respiratory effort, no retractions and no use of accessory muscles Back & Pelvis Lumbar spine/lower back: ROM limited, pain with ROM and straight leg raise negative bilaterally; no lumbar spinal tenderness, no paraspinal muscle tenderness and no paraspinal muscle spasm Sacroiliac joints: SI joint(s) abnormal Other: significant axial low back pain, facet tenderness over L2-4 facet joints no radiculopathy on exam, strength 5/5 in BLE, sensation intact BLE bilateral SIJ exam positive florence(patricks), gaenslens, thigh thrust, compression test increased pain over bilateral superior gluteal nerves and flank Extremity Common normals: normal to inspection and full ROM Neuro Common normals: oriented x3, CN's II-XII intact bilaterally, moves all extremities, no focal motor deficits, no sensory deficits noted and deep tendon reflexes 2+ bilaterally Sensorium/orientation: alert Motor exam: strength 5/5 throughout and no movement abnormalities noted Psych Common normals: mental status grossly normal, thought process normal, cooperative, affect normal, speech normal and activity/motor behavior normal Speech: normal speech Thought process: normal thought process Assessment and Plan Assessment and Plan (1) Unspecified mononeuropathy of right lower limb: (2) Unspecified mononeuropathy of left lower limb: (3) Lumbar spondylosis: (4) Lumbar degenerative disc disease: (5) Chronic prescription opiate use: (6) Spondylosis of cervical region without myelopathy or radiculopathy: (7) Myalgia, other site: Plan continue diclofenac 50mg BID PRN pain/risks vs benefits reviewed continue HEP as tolerated not a surgical candidate per NS pending PT pt going to [place] until august, can call for f/u appointment around 6 months from now
== END 2024-04-29 09:54 | disposition home or self-care (01) ==
LOC: PM 09:53
PROVIDERS: PCP Family Medicine; Visit Provider Nurse Practitioner
DX: G57.83 Other specified mononeuropathies of bilateral lower limbs (principal); M47.816 Spondylosis without myelopathy or radiculopathy, lumbar region; M51.369 Other intervertebral disc degeneration, lumbar region without mention of lumbar back pain or lower extremity pain; Z79.891 Long term (current) use of opiate analgesic; M47.812 Spondylosis without myelopathy or radiculopathy, cervical region; M79.18 Myalgia, other site
CPT/HCPCS: G0463

== ENCOUNTER 2024-09-23 12:56 | Outpatient (RCR) | payer MEDICARE, SELFPAY | END 2024-10-08 14:32 | disposition home or self-care (01) | LOC: PT 12:56 | PROVIDERS: PCP Family Medicine; Visit Provider Neurological Surgery | DX: M54.50 Low back pain, unspecified (principal) | CPT/HCPCS: 20561; 97110; 97140; 97161 ==

== ENCOUNTER 2024-11-01 12:27 | Outpatient (OUT) | payer MEDICARE, SELFPAY ==
--- NOTE | 2024-11-01 13:16 | PM.CN ---
Consult Note: HPI Data of Consult Patient: known to practice within the last 3 years Consult date: 11/01/24 Requesting Physician: Dulce Cifuentes MD Primary Care Provider: Savanna Guajardo MD Consult Narrative Reason for consult: low back, bilateral lower ext pain Narrative: 84yof who presents for assessment. notes progressively worsening low back, bilateral hip pain, leg pain. imaging reviewed, significant for moderate to severe canal stenosis at l2-l5. has had a number of interventional modalities in the past, with varying levels of benefit. recently evaluated by two different spine surgeons, plans to follow up with one to discuss surgical options. uses tramadol prn, though seems to get more benefit from aleve. continues in PT, has tried chiropractor, accupuncture. cc:: CC: Dulce Cifuentes MD Review of Systems ROS Status of ROS 10 or more systems reviewed and unremarkable except as noted in history and below PFSH PFSH Medical History Osteoarthritis ?M19.90 - Unspecified osteoarthritis, unspecified site (ICD-10) Hearing deficit ?H91.90 - Unspecified hearing loss, unspecified ear (ICD-10) Surgical History History of bunionectomy of left great toe ?Z98.890 - Other specified postprocedural states (ICD-10) History of stapedectomy ?Z90.09 - Acquired absence of other part of head and neck (ICD-10) History of cervical discectomy ?Z98.890 - Other specified postprocedural states (ICD-10) History of hysterectomy ?Z90.710 - Acquired absence of both cervix and uterus (ICD-10) Meds Home Medications and Allergies Home Medications ?Medication ?Instructions ?Recorded ?Confirmed ?Type calcium 500 mg-vitamin D3 100 1 tab PO DAILY 11/06/22 03/30/24 History unit-vitamin K 40 mcg chewable tablet diclofenac sodium 50 mg 50 mg PO BID 11/06/22 03/30/24 History tablet,delayed release glucosamine-chondroitin 250 mg-200 2 tab PO DAILY 11/06/22 03/30/24 History mg tablet (Osteo Bi-Flex) lactobacillus combo no.13 1 1 cap PO DAILY 11/06/22 03/30/24 History billion cell capsule,delayed release (Probiotic Pearls Complete) magnesium 200 mg tablet 400 mg PO DAILY 11/06/22 03/30/24 History meclizine 25 mg chewable tablet 25 mg PO DAILY 11/06/22 03/30/24 History (Antivert) multivitamin (Daily Multi-Vitamin 1 tab PO DAILY 11/06/22 03/30/24 History tablet) omega 8-zhl-sum-fish oil 1,200 mg 1 cap PO DAILY 11/06/22 03/30/24 History (144 mg-216 mg) capsule (Fish Oil) prasterone (DHEA) 50 mg capsule 50 mg PO DAILY 11/06/22 03/30/24 History (DHEA) vitamin B complex (B 1 tab PO DAILY 11/06/22 03/30/24 History Complex-Vitamin B12 tablet) atenolol 50 mg tablet 50 mg PO DAILY 09/09/23 03/30/24 History ondansetron 4 mg disintegrating 4 mg PO Q8H PRN nausea and 09/09/23 03/30/24 Rx tablet vomiting 4 days #12 tabs tramadol 50 mg tablet 50 mg PO BID PRN pain #60 tabs 12/03/23 03/30/24 Rx diclofenac sodium 50 mg 50 mg PO BID #60 tabs 03/16/24 03/30/24 Rx tablet,delayed release tramadol 50 mg tablet 50 mg PO BID PRN pain #60 tabs 03/16/24 03/30/24 Rx hydrocodone 5 mg-acetaminophen 325 1 tab PO DAILY PRN pain #7 tabs 04/07/24 Rx mg tablet tramadol 50 mg tablet 50 mg PO BID PRN pain #60 tabs 07/22/24 Rx Allergies Allergy/AdvReac Type Severity Reaction Status Date / Time No Known Drug Allergies Allergy Verified 03/30/24 09:38 Exam Narrative Exam Narrative: Psych-alert and oriented x 3. Attentive and appropriate, constitutionally normal, displays normal mood and affect per situation.? There are no obvious deficits in memory, reasoning, or intellect.? Skin-no obvious rashes, bruising, erythema noted to the patient's area of pain. Extremities- extremities are warm with minimal edema and palpable pulses. Lumbar-no significant tenderness to palpation noted in the lumbar spine and paraspinal musculature.? Pain is elicited with extension, and lateral rotation of the lumbar spine. Range of motion is slightly diminished with these motions due to pain. Coordination remains intact.? Gait remains non-antalgic. Assessment and Plan Assessment and Plan (1) Lumbar stenosis with neurogenic claudication: Plan 84yof who presents for assessment. failed conservative measures, as noted. imaging reviewed, as noted. reviewed interventional modality history, has had epidurals, rfas. at this point, recommended that she follow up with surgeon to discuss whether surgical options may exist. she expressed understanding. also provided her with scs info, discussed that if she were not to proceed with surgery, she may be a candidate for scs trial. medications reviewed, no changes. follow up after surgical eval.
== END 2024-11-01 12:28 | disposition home or self-care (01) ==
LOC: PM 12:28
PROVIDERS: PCP Family Medicine; Visit Provider Anesthesiology
DX: M48.062 Spinal stenosis, lumbar region with neurogenic claudication (principal)
CPT/HCPCS: G0463

== ENCOUNTER 2024-11-26 07:58 | Outpatient (OUT) | payer MEDICARE, SELFPAY ==
--- OUTSIDE RECORDS SUMMARY | 2024-11-26 08:02 | XMS_ITS | Patient Health Record ---
Author Organization [facility] Address [address] [place] [address] Care Team Providers Care [employer] Analyst Name Role Phone Savanna Guajardo M.D. Primary Care Provider Unavail able [facility] Unavailable [phone] Mark Lemus Unavailable [phone] Allergies No Known Allergies Reason For Referral Reason APPROVED............ .............NOT SCHEDULED.............................AETNA MCR CT myelogram lumbar spine at [facility]) Diagnosis 1 Lumbar pain (M54.50) Diagnosis 2 Degenerative scolios is (M41.50) Referral Organization [facility] Referring Provider First Name Jae Referring Provider Last Name [facility] Referring Provider Speciality Orthopedic Surgery Referred Organization [facility] SCHEDULING Referred Address [address] [place] [address], Procedure 1 CT lumbar spine; W/ contrast material (78718) General Notes Baylee Aponte 10/10 11:00:03 AM >, Lori Kumari 10/22/2024 11:04:40 AM > WAITING ON TODAY'S OFFICE NOTEQuoc Kayla 10/26/2024 09:33:55 AM > AUTHORIZATION # [id number] APPROVED AND VALID 10/26/24-04/24/25 PER BONNY. SCANNED INTO CHART AND FAXED TO FACILITY., Baylee Aponte 10/26/2024 01:57:35 PM > faxed to nasim vasquez- [phone] Referral Priority Routine Medications Medication SIG (Take, Route, Fr equency, Duration) Notes Start Date End Date Status diclofenac Active atenolol 50 mg 1 tab(s) Activ e traMADol 50 mg 1 tab(s) Activ e Social History Tobacco Use: Social History Observation Description Date Details (start date - stop date) Never Smoker NA - NA AUDIT-C (Standard) Question Answer Notes Did you have a drink containing alcohol in the p ast year? No Points 0 Interpretation Negative Tobacco Control (Standard) Question Answer Notes Tobacco use: Nonsmoker Problems Problem Type SNOMED Code ICD Code Onset Dates Problem Status W/U Status Risk Notes Problem [id number] Degenerative scoliosis (M41.50) Active confirmed Vital Signs Height 5'5 in 10/22/2024 Weight 125 lbs 10/22/2024 BMI 20.8 10/22/2024 Encounters Encounter Location Date Provider Diagnosis [facility] [address] [id number] 10/22/2024 Mark Diglio Lumbar pain M54.50 ; Degenerative scoliosis M41.50 and Other intervertebral disc degeneration, 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 Low back pain 2. Lumbar degenerative scoliosis 3. L2-S1 degenerative disc disease 4. 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 Low back pain 2. Lumbar degenerative scoliosis 3. L2-S1 degenerative disc disease 4. 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 Low back pain 2. Lumbar degenerative scoliosis 3. L2-S1 degenerative disc disease 4. 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 Sheth. At this time, we would like to get a MRI of the lumbar spine but patient reports not being able to have a MRI due to an implant. We will set her up with a CT myelogram of the lumbar spine. She has failed conservative treatment with medication management, physical therapy and injections. We will see her back after the testing is completed to discuss possible surgical options. The patient is very much in agreement with the treatment and/or diagnostic plan set forth and all questions were answered to the patient's satisfaction. Thanks once again. If we can be of further service to your patients with disorders of the spine, cervical, thoracic, or lumbar, please do not hesitate to contact Dr. Sheth. Best regards, 1. Low back pain 2. Lumbar degenerative scoliosis 3. L2-S1 degenerative disc disease 4. 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
--- OUTSIDE RECORDS SUMMARY | 2024-11-26 08:03 | XMS_ITS | CCD ---
Author Organization [facility] Care Team Providers Care Home Care Physical Therapist Name Role Phone GISELA, DR SAVANNA Willis [...] Unavailable GISELA, DR SAVANNA Willis Attending Unavailable COLVILLE, DR MINE Barriga Consulting Unavailable GISELA, DR SAVANNA Willis Admitting Unavailable GISELA, DR SAVANNA Willis Consulting Unavailable [...] Willis Consulting Unavailable GISELA, DR SAVANNA Willis Attending Unavailable HIGGINS, DR SAVANNA Willis Admitting Unavailable ROSITA ., DR VALENTINA Rothman Admitting Unavailable BECKER [...] Higgins Unavailable SAVANNA HIGGINS Primary Care Physician REBECA HOYT Attending Unavailable Valeriy Higgins MD Primary Care Provider Community, Outreach Admitting Unavailable Community, Outreach Attending Unavailable Savanna Higgins Primary Care Unavailable Roman ORTEGA Attending Unavailable Vane SALGUERO, Dulce Cooper Attending Unavailable Vane SALGUERO, Dulce Cooper Attending Unavailable Medications Current Medications Medication Drug Class(es) Dates Sig (Normalized) Sig (Original) atenolol 50 mg oral tablet (20 sources) beta-Adrenergic Tera Start: 03-30-2024 End: 08-18-2024 take 1 tablet by mouth once daily Atenolol 50 mg tablet Active 0 .ROUTE .COMPLEX 90 August 18, 2024 8:43am TAKE 1 TABLET BY MOUTH EVERY DAY FOR 90 DAYS Start: 09-28-2022 End: 03-30-2024 take 1 tablet by mouth once daily Atenolol 50 mg tablet Discontinued 50 MG PO Daily September 29, 2023 12:00am March 30, 2024 5:39pm baclofen 10 mg oral tablet (2 sources) gamma-Aminobutyric Acid-ergic Agonist Start: 12-06-2022 take 0.25 tablet by mouth in the morning, then take 0.25 tablet by mouth in the evening, then take 0.5-1 tablets by mouth at bedtime baclofen (Lioresal) 10 MG tablet TAKE 1/4 TABLET BY MOUTH IN THE MORNING, 1/4 TABLET IN THE EVENING, AND 1/2 - 1 TABLET AT BEDTIME 12/06/2022 Active Caltrate (1 source) Start: 09-17-2023 take 1 mg by mouth once daily Caltrate mg, Oral, Daily, Refills(s) 0 Start Date: 09/17/23 Status: Ordered Caltrate 600 with D (2 sources) Start: 02-19-2010 Caltrate 600 with D 1 tab(s), Oral, Daily, Refill(s) 0, Prophylaxis Start Date: 02/19/10 Status: Ordered Osteo Bi-Flex (2 sources) Start: 09-17-2023 Osteo Bi-Flex Refill(s) 0 Start Date: 09/17/23 Status: Ordered diclofenac sodium 50 mg delayed release oral tablet (20 sources) Nonsteroidal Anti-inflammatory Drug Start: 04-05-2024 take 1 tablet by mouth twice daily Diclofenac Sodium 50 mg tablet,delayed release (DR/EC) Active 50 MG PO Twice daily April 05, 2024 1:00am Start: 10-02-2023 End: 10-02-2023 take 1 tablet by mouth twice daily as needed for pain Diclofenac Potassium 25 mg tablet Discontinued 25 MG PO Twice daily as needed for pain October 02, 2023 11:30am October 02, 2023 4:24pm Start: 09-29-2023 End: 10-02-2023 take 1 tablet by mouth four times daily as needed Diclofenac Potassium 25 mg tablet Discontinued 25 MG PO Four times daily as needed September 29, 2023 12:00am October 02, 2023 [...] take 1 tablet by mouth once daily [place]-3 Fish Oil 1 tab, Oral, Daily, Refill(s) [...] 6 hours prn for 30 days Active Misc Medication (1 source) Start: 02-28-2014 take 1 tablet by mouth once daily Misc Medication one tab, Oral, Daily Start Date: 02/28/14 Status: Ordered Multiple Vitamins oral capsule (2 sources) Start: 02-19-2010 take 1 capsule by mouth once daily Multiple Vitamins oral capsule 1 cap(s), Oral, Daily, Refill(s) 0, Prophylaxis Start Date: 02/19/10 Status: Ordered Multivitamin preparation (7 sources) Multivitamin Active predniSONE [...] 30 cap(s), Refills(s) 0, Pharmacy: [facility]/pharmacy #[id number], 56.1, kg, 09/17/23 8:03:00 EDT, Weight Dosing Start Date: 09/17/23 Stop Date: 10/17/23 Status: Ordered tiZANidine 4 mg oral tablet (16 sources) Central alpha-2 Adrenergic Agonist Start: 05-03-2024 take 1 tablet by mouth once daily at bedtime as needed Tizanidine 4 mg tablet Active 4 MG PO Daily at bedtime as needed for muscle spasticity May 03, 2024 5:19pm Start: 04-05-2024 End: 04-21-2024 take 1 tablet by mouth once daily at bedtime as needed Tizanidine 4 mg tablet Discontinued 4 MG PO Daily at bedtime as needed for muscle spasticity April 05, 2024 1:00am April 21, 2024 9:26am Start: 09-30-2023 End: 04-05-2024 take 1 tablet by mouth every eight hours as needed Tizanidine 2 mg tablet Discontinued 2 MG PO Every 8 hours as needed for muscle spasticity September 30, 2023 12:00am April 05, 2024 11:23am traMADol hydrochloride 50 mg oral tablet (7 sources) Opioid Agonist take 1 tablet by mouth twice daily as needed traMADol (Ultram) 50 MG tablet Take 50 mg by mouth 2 (two) times a day as needed. Active traMADol HCl Act marysol ZOLMitriptan 5 mg oral tablet (2 sources) Serotonin-1b and Serotonin-1d Receptor Agonist Start: 02-19-2010 take 1 tablet by mouth once as needed for headache Zomig 5 mg oral tablet = 1 tab(s), Oral, Once, PRN for migraine headache, # 10 tab(s), Refills(s) 0 Start Date: 02/19/10 Status: Ordered Completed/Discontinued Medications Medication Drug Class(es) Dates Sig (Normalized) Sig (Original) meloxicam 7.5 mg oral tablet (14 sources) Nonsteroidal Anti-inflammatory Drug Start: 4 End: 4 take 1 tablet by mouth once daily Meloxicam 7.5 mg tablet Discontinued 7.5 MG PO Daily November 18, 2023 11:23am April 05, 2024 11:24am methylPREDNISolone 4 mg oral tablet (8 sources) Corticosteroid Start: 4 End: 4 take 1 tablet by mouth once Methylprednisolone (Medrol (Herb)) 4 mg tablets,dose pack Discontinued 0 PO per package directions September 30, 2023 12:00am April 05, 2024 11:23am PO PER PKG DIR for 6 days 24 hr metoprolol succinate 25 mg extended release oral capsule (15 sources) beta-Adrenergic Tera Start: 4 End: 4 take 1 capsule by mouth once daily Metoprolol Succinate 25 mg capsule,sprinkle,ER 24hr Discontinued 25 MG PO Daily September 29, 2023 12:00am September 30, 2023 2:41pm Metoprolol Succi olena 25 MG 1 tablet once a day Active mupirocin 0.02 mg/mg topical ointment (7 sources) RNA Synthetase Inhibitor Antibacterial Start: 11-18-2023 End: 04-05-2024 Mupirocin 2 % ointment Discontinued 1 APPLIC TOPICAL Twice daily November 18, 2023 12:00am April 05, 2024 11:43am triamcinolone acetonide 40 mg/ml injectable suspension (10 sources) Corticosteroid Start: 09-25-2022 Kenalog-40 Jan, 60 mg Problems Active Problems Problem Classification Problem Date Documented Date Episodic/Chronic Calculus of urinary tract (16 sources) Ureteric stone; Translations: [Calculus of ureter] Onset: 09-17-2023 Episodic Cataract (3 sources) Cataract; 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 Conditions associated with dizziness or [...] Onset: 10-02-2022 Episodic Open wounds of extremities (7 sources) Laceration of left lower leg; Translations: [...] conditions (not mental disorders or infectious disease) (14 sources) Encounter for screening mammogram for malignant neoplasm of breast; Translations: [Patient encounter status] Onset: 11-07-2021 Episodic Other skin disorders (5 sources) Actinic keratosis; Translations: [Actinic keratosis] Episodic Other upper respiratory disease (13 sources) Seasonal allergic rhinitis; Translations: [Other seasonal allergic rhinitis] Onset: 09-10-2017 12-09-2023 Chronic Other upper respiratory disease (5 sources) Allergic rhinitis; Translations: [Allergic rhinitis, unspecified] Chronic Other upper respiratory disease (4 sources) Other seasonal allergic rhinitis; Translations: [Allergic rhinitis, cause unspecified] Chronic Skin and subcutaneous tissue infections (9 sources) Cellulitis of right lower limb; Translations: [Cellulitis of right lower limb] Onset: 12-31-2021 Episodic Spondylosis; intervertebral disc disorders; other back problems (5 sources) Spondylosis without myelopathy or radiculopathy, cervical region; Translations: [SPONDYLS W/O MYELO-/RADICULOP CERV] Onset: 09-09-2022 Chronic Spondylosis; intervertebral disc disorders; other back problems (20 sources) Cervicalgia; Translations: [Lumbago] Onset: 09-05-2022 Episodic [...] NEC UNS SITE] Onset: 01-28-2022 Episodic Other eye disorders (1 source) Dry eyes; 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] 01-05-2024 Episodic Other non-traumatic joint disorders (5 sources) Shoulder joint pain; Translations: [Pain in right shoulder] Onset: 03-12-2016 Episodic Residual codes; unclassified (1 source) Family history of malignant neoplasm of ovary; Translations: [FAM HX MALIGNANT NEOPLASM OVARY] Onset: 11-09-2021 Episodic Results Test Name Value Interpretation Reference Range Facility Basophils Auto (Bld) [#/Vol] on 09-09-2023 Basophils (Bld) [#/Vol] 0.0 10 3/uL 0.0-0.1 [facility] Basophils/100 WBC Auto (Bld) on 09-09-2023 Basophils/100 WBC (Bld) 0.4 % 0.2-2.0 [facility] Casts typing in urine sedime nt by light microscopyon 09-09-2023 Casts LM Nom (Urine sed) NONE SEEN #/LPF NONE SEEN [facility] Eosinophils/100 WBC Auto (Bl d)on 09-09-2023 Eosinophils/100 WBC (Bld) 1.1 % 0.9-7.0 [facility] Erythrocyte distribution wid th Auto (RBC) [Ratio]on 09-09-2023 Erythrocyte distribution width (RBC) [Ratio] 13.0 % 11.0-15.0 [facility] Estimated glomerular filtrat ion rate (GFR) non- Americanon 09-09-2023 GFR/1.73 sq M.predicted among non-blacks MDRD (S/P/Bld) [Vol rate/Area] 52 mL/min/{1.73_m2} Low >=60 [facility] Globulin Calc (S) [Mass/Vol] on 09-09-2023 Globulin (S) [Mass/Vol] 3.5 g/dL [facility] Hematocrit Auto (Bld) [Volum e fraction]on 09-09-2023 Hematocrit (Bld) [Volume fraction] 39.0 % 36.0-48.0 [facility] Hemoglobin [Mass/volume] in Bloodon 09-09-2023 Hemoglobin (Bld) [Mass/Vol] 12.6 g/dL 12.0-16.0 [facility] Laboratory - Chemistry and C hemistry - challengeon 09-09-2023 Albumin [Mass/Vol] 3.6 g/dL 3.4-5.0 [facility] ALP [Catalytic activity/Vol] 74 U/L 46-116 [facility] ALT [Catalytic activity/Vol] 30 U/L 14-59 [facility] AST [Catalytic activity/Vol] 24 U/L 15-37 [facility] Bilirubin [Mass/Vol] 0.5 mg/dL 0.2-1.0 [place] Calcium [Mass/Vol] 9.8 mg/dL 8.5-10.1 [facility] Chloride [Moles/Vol] 102 mmol/L 98-107 [place] CO2 [Moles/Vol] 31.2 mmol/L 21.0-32.0 [facility] Creatinine [Mass/Vol] 1.01 mg/dL 0.55-1.[address] [facility] GFR/1.73 sq M.predicted MDRD (S/P/Bld) [Vol rate/Area] mL/min/{1.73_m2} >=60 [facility] Glucose [Mass/Vol] 100 mg/dL 74-106 [facility] Lipase [Catalytic activity/Vol] 25.0 U/L 16.0-77.0 [facility] Potassium [Moles/Vol] 3.9 mmol/L 3.5-5.[address] [facility] Protein [Mass/Vol] 7.1 g/dL 6.4-8.2 [facility] Sodium [Moles/Vol] 140 mmol/L 136-145 [facility] Urea nitrogen [Mass/Vol] 22.0 mg/dL High 7.0-18.0 [facility] Urea nitrogen/Creatinine [Mass ratio] 21.8 mg/mg [facility] Bilirubin Ql (U) Negative NEGATIVE [facility] Glucose (U) [Mass/Vol] Negative NEGATIVE [facility] Ketones Ql (U) Negative NEGATIVE [facility] pH (U) 6.0 [pH] 5.0-9.0 [facility] Specific gravity (U) [Rel density] 1.020 1.005-1.025 [facility] Urobilinogen Qn (U) 0.2 {Sosa'U}/dL 0.2-1.0 [facility] Laboratory - Hematology and Cell countson 09-09-2023 Immature granulocytes/100 WBC (Bld) 0.3 % 0.0-0.5 [facility] Laboratory - Specimen inform ationon 09-09-2023 Appearance (U) CLEAR CLEAR [facility] Color (U) DK. YELLOW YELLOW [facility] Laboratory - Urinalysison Amorphous sediment LM Ql (Urine sed) RARE [facility] Leukocyte esterase Test strip Ql (U) TRACE Abnormal NEGATIVE [facility] Nitrite Ql (U) Negative NEGATIVE [facility] Protein Ql (U) Negative NEG/TRACE [facility] Leukocytes [#/volume] correc bill for nucleated erythrocytes in Blood by Automated counon 09-09-2023 WBC corrected for nucl RBC Auto (Bld) [#/Vol] 10.7 10 3/uL 4.0-11.0 [facility] Lymphocytes Auto (Bld) [#/Vo l]on 09-09-2023 Lymphocytes (Bld) [#/Vol] 1.5 10 3/uL 1.2-3.8 [facility] Lymphocytes/100 WBC Auto (Bl d)on 09-09-2023 Lymphocytes/100 WBC (Bld) 13.7 % Low 20.5-60.0 [facility] MCH Auto (RBC) [Entitic mass ]on 09-09-2023 MCH (RBC) [Entitic mass] 31.2 pg 26.7-34.0 [facility] MCHC Auto (RBC) [Mass/Vol]on 09-09-2023 MCHC (RBC) [Mass/Vol] 32.3 g/dL 29.9-35.[address] [facility] MCV Auto (RBC) [Entitic vol] on 09-09-2023 MCV (RBC) [Entitic vol] 96.5 fL 81.0-99.0 [facility] Monocytes Auto (Bld) [#/Vol] on 09-09-2023 Monocytes (Bld) [#/Vol] 1.0 10 3/uL High 0.3-0.8 [facility] Monocytes/100 WBC Auto (Bld) on 09-09-2023 Monocytes/100 WBC (Bld) 9.5 % 1.7-12.0 [facility] Mucus LM Ql (Urine sed)on Mucus Ql (Urine sed) NONE SEEN NONE SEEN [place] Neutrophils Auto (Bld) [#/Vo l]on 09-09-2023 Neutrophils (Bld) [#/Vol] 8.0 10 3/uL High 1.4-6.5 [facility] Neutrophils/100 WBC Auto (Bl d)on 09-09-2023 Neutrophils/100 WBC (Bld) 75.0 % 43.0-75.0 [facility] No Panel Informationon 09-08 Eosinophils # (Auto) 0.1 10 3/uL 0.0-0.[address] [facility] Immature Granulocyte # (Auto) 0.03 10 3/uL 0.00-0.03 [facility] Urine Bacteria NONE SEEN #/HPF NONE SEEN [facility] Urine Culture Reflexed NO [facility] Urine Microscopic Review YES [facility] Urine Occult Blood LARGE Abnormal NEGATIVE [facility] Urine Other Crystals Seen #/HPF Abnormal None Seen [place] Urine RBC 10-20 #/HPF Abnormal 0-2 [facility] Urine Squamous Epithelial Cells NONE SEEN #/LPF NONE/RARE [facility] Urine Uric Acid Crystals FEW [facility] Urine WBC 2-5 #/HPF Abnormal NONE SEEN [facility] Platelet mean volume Auto (B ld) [Entitic vol]on 09-09-2023 Platelet mean volume (Bld) [Entitic vol] 9.5 fL 9.5-13.5 [facility] Platelets Auto (Bld) [#/Vol] on 09-09-2023 Platelets (Bld) [#/Vol] 240 10 3/uL 150-450 [facility] RBC Auto (Bld) [#/Vol]on RBC (Bld) [#/Vol] 4.04 10 6/uL Low 4.20-5.40 [facility] Serum or plasma albumin/glob ulin mass ratioon 09-09-2023 Albumin/Globulin [Mass ratio] 1.0 {ratio} [facility] Serum or plasma anion gap de terminationon 09-09-2023 Anion gap [Moles/Vol] 10.7 mmol/L [facility] XR RIBS LT PA Stephen [...] by: PB GENAO Date: 2022-10-02 11:51 Normal [facility] XR CSPINE 2_3 VIEWSon 2022 XR [...] ISAEL GRIFFIN Date: 2022-09-05 15:58 Normal [facility] CBC AUTO DIFFon 12-31-2021 BASO # 0.0 103/ul Normal 0.0-0.1 [facility] Comment on above: Performed By: #### C BC #### [facility] [address] [address] [address] Radha Land Basophils/100 WBC (Bld) 0.2 % Normal 0.2-2.0 [facility] Comment on above: Performed By: #### C BC #### [facility] [address] [address] [address] Radha Land EO # 0.2 103/ul Normal 0.0-0.7 [facility] Comment on above: Performed By: #### C BC #### [facility] [address] [place] [address] Dr. Radha Land Eosinophils/100 WBC (Bld) 1.7 % Normal 0.9-7.0 [facility] Comment on above: Performed By: #### C BC #### [facility] [address] [place] [address] Dr. Radha Land Erythrocyte distribution width (RBC) [Ratio] 13.4 % Normal 11.0-15.0 [facility] Comment on above: Performed By: #### C BC #### [facility] [address] [place] [address] Dr. Radha Land Hematocrit (Bld) [Volume fraction] 40.9 % Normal 36.0-48.0 [facility] Comment on above: Performed By: #### C BC #### [facility] [address] [place] [address] Dr. Radha Land Hemoglobin (Bld) [Mass/Vol] 13.1 g/dL Normal 12.0-16.0 [facility] Comment on above: Performed By: #### C BC #### [facility] [address] [place] [address] Dr. Radha Land IG # 0.05 10e3/ul Critically high 0.00-0.03 [facility] Comment on above: Performed By: #### C BC #### [facility] [address] [place] [address] Dr. Radha Land IG % 0.4 % Normal 0.0-0.5 [facility] Comment on above: Performed By: #### C BC #### [facility] [address] [place] [address] Dr. Radha Land LYMPH # 1.4 103/ul Normal 1.2-3.8 [facility] Comment on above: Performed By: #### C BC #### [facility] [address] [place] [address] Dr. Radha Land Lymphocytes/100 WBC (Bld) 10.8 % Critically low 20.5-60.0 [facility] Comment on above: Performed By: #### C BC #### [facility] [address] [place] [address] Dr. Radha Land MANUAL DIFF REQ NO Normal [facility] Comment on above: Performed By: #### C BC #### [facility] [address] [place] [address] Dr. Radha Land MCH (RBC) [Entitic mass] 31.5 pg Normal 26.7-34.0 [facility] Comment on above: Performed By: #### C BC #### [facility] [address] [place] [address] Dr. Radha Land MCHC (RBC) [Mass/Vol] 32.0 g/dL Normal 29.9-35.2 [facility] Comment on above: Performed By: #### C BC #### [facility] [address] [place] [address] Dr. Radha Land MCV (RBC) [Entitic vol] 98.3 fL Normal 81.0-99.0 [facility] Comment on above: Performed By: #### C BC #### [facility] [address] [place] [address] Dr. Radha Land MONO # 1.3 103/ul Critically high 0.3-0.8 [facility] Comment on above: Performed By: #### C BC #### [facility] [address] [place] [address] Dr. Radha Land Monocytes/100 WBC (Bld) 9.7 % Normal 1.7-12.0 [facility] Comment on above: Performed By: #### C BC #### [facility] [address] [place] [address] Dr. Radha Land NEUT # 10.2 103/ul Critically high 1.4-6.5 [facility] Comment on above: Performed By: #### C BC #### [facility] [address] [place] [address] Dr. Radha Land Neutrophils/100 WBC (Bld) 77.2 % Critically high 43.0-75.0 [facility] Comment on above: Performed By: #### C BC #### [facility] [address] [address] [address] Radha Land Platelet mean volume (Bld) [Entitic vol] 9.7 fL Normal 9.5-13.5 [facility] Comment on above: Performed By: #### C BC #### [facility] [address] [address] [address] Radha Land PLT 235 103/ul Normal 150-450 [facility] Comment on above: Performed By: #### C BC #### [facility] [address] [address] [address] Radha Land RBC 4.16 106/ul Critically low 4.20-5.40 [facility] Comment on above: Performed By: #### C BC #### [facility] [address] [address] [address] Radha Land WBC 13.2 103/ul Critically high 4.0-11.0 [facility] Comment on above: Performed By: #### C BC #### [facility] [address] [address] [address] Radha Land [facility] SED [facility]ATE 35 mm/hr Critically high <=30 [facility] Comment on above: Performed By: #### S EDR #### [facility] [address] [address] [address] Radha Land CBC AUTO DIFFon 11-07-2021 BASO # 0.0 103/ul Normal 0.0-0.1 [facility] Comment on above: Performed By: #### C BC ####[facility] [address] [address]Dr. Radha Land Basophils/100 WBC (Bld) 0.3 % Normal 0.2-2.0 [facility] Comment on above: Performed By: #### C BC ####[facility] [address] [address]Dr. Radha Land EO # 0.2 103/ul Normal 0.0-0.7 [facility] Comment on above: Performed By: #### C BC ####[facility] [address] [address]Dr. Radha Land Eosinophils/100 WBC (Bld) 3.3 % Normal 0.9-7.0 [facility] Comment on above: Performed By: #### C BC ####[facility] [address] [place], [place] [address]Dr. Radha Land Erythrocyte distribution width (RBC) [Ratio] 13.2 % Normal 11.0-15.0 [facility] Comment on above: Performed By: #### C BC ####[facility] [address] [place], [place] [address]Dr. Radha Land Hematocrit (Bld) [Volume fraction] 41.9 % Normal 36.0-48.0 [facility] Comment on above: Performed By: #### C BC ####[facility] [address] [place], [place] [address]Dr. Radha Land Hemoglobin (Bld) [Mass/Vol] 13.4 g/dL Normal 12.0-16.0 [facility] Comment on above: Performed By: #### C BC ####[facility] [address] [place], [place] [address]Dr. Radha Land IG # 0.01 10e3/ul Normal 0.00-0.03 [facility] Comment on above: Performed By: #### C BC ####[facility] [address] [place], [place] [address]Dr. Radha Land IG % 0.2 % Normal 0.0-0.5 [facility] Comment on above: Performed By: #### C BC ####[facility] [address] [place], [place] [address]Dr. Radha Land LYMPH # 1.6 103/ul Normal 1.2-3.8 [facility] Comment on above: Performed By: #### C BC ####[facility] [address] [place], [place] [address]Dr. Radha Emery Lymphocytes/100 WBC (Bld) 27.5 % Normal 20.5-60.0 [facility] Comment on above: Performed By: #### C BC ####[facility] [address] [address]Dr. Radha Land MANUAL DIFF REQ NO Normal [facility] Comment on above: Performed By: #### C BC ####[facility] [address] [id number][address] Radha Land MCH (RBC) [Entitic mass] 31.2 pg Normal 26.7-34.0 [facility] Comment on above: Performed By: #### C BC ####[facility] [address] [address]Dr. Radha Land MCHC (RBC) [Mass/Vol] 32.0 g/dL Normal 29.9-35.2 [facility] Comment on above: Performed By: #### C BC ####[facility] [address] [place], [place] [address]Dr. Radha Land MCV (RBC) [Entitic vol] 97.7 fL Normal 81.0-99.0 [facility] Comment on above: Performed By: #### C BC ####[facility] [address] [place], [place] [address]Dr. Radha Land MONO # 0.7 103/ul Normal 0.3-0.8 [facility] Comment on above: Performed By: #### C BC ####[facility] [address] [place], [place] [address]DrHernandez Land Monocytes/100 WBC (Bld) 12.4 % Critically high 1.7-12.0 [facility] Comment on above: Performed By: #### C BC ####[facility] [address] [place], [place] [address]DrHernandez Land NEUT # 3.2 103/ul Normal 1.4-6.5 [facility] Comment on above: Performed By: #### C BC ####[facility] [address] [place], [place] [address]DrHernandez Land Neutrophils/100 WBC (Bld) 56.3 % Normal 43.0-75.0 [facility] Comment on above: Performed By: #### C BC ####[facility] [address] [id number][address] Radha Land Platelet mean volume (Bld) [Entitic vol] 9.4 fL Critically low 9.5-13.5 [facility] Comment on above: Performed By: #### C BC ####[facility] [facility] [id number] [id number]. Radha Land PLT 226 103/ul Normal 150-450 [facility] Comment on above: Performed By: #### C BC ####[facility] [id number] [id number]. Radha Land RBC 4.29 106/ul Normal 4.20-5.40 [facility] Comment on above: Performed By: #### C BC ####[facility] [id number] [address]Dr. Radha Land WBC 5.7 103/ul Normal 4.0-11.0 [facility] Comment on above: Performed By: #### C BC ####[facility] [id number] [id number]. Radha Land LIPID PROFILEon 11-07-2021 CHOL-HDL RATIO NORM SEE BELOW Normal [facility] Comment on above: Result Comment: 3.3 - 4.4 LOW RISK 4.4 - 7.1 AVERAGE RISK 7.1 - 11.0 MODERATE RISK >11.0 HIGH RISK Performed By: #### L IPID, CMP #### [facility] [address] [address] [address] Radha Land Cholesterol [Mass/Vol] 257 mg/dL Critically high <=200 [facility] Comment on above: Performed By: #### L IPID, CMP #### [facility] [address] [address] [address] Radha Land Cholesterol in HDL [Mass/Vol] 76 mg/dL Critically high 40-60 [facility] Comment on above: Performed By: #### L IPID, CMP #### [facility] [address] [address] [address] Radha Land Cholesterol in LDL [Mass/Vol] 163.8 mg/dL Normal [facility] Comment on above: Performed By: #### L IPID, CMP #### [facility] [address] [place] [address] Dr. Radha Land Cholesterol.total/Cho lesterol in HDL [Mass ratio] 3.4 {ratio} Normal [facility] Comment on above: Performed By: #### L IPID, CMP #### [facility] [address] [place] [address] Dr. Radha Land HDL NORMAL > or = 60 mg/dl - LOW CARDIOVASCULAR RISK <40 mg/dl - HIGH CARDIOVASCULAR RISK Normal [facility] Comment on above: Performed By: #### L IPID, CMP #### [facility] [address] [place] [address] Dr. Radha Land LDL CALC NORMAL SEE BELOW Normal [facility] Comment on above: Result Comment: <100 mg/dl OPTIMAL 100 - 129 mg/dl NEAR OR ABOVE OPTIMAL 130 - 159 mg/dl BORDERLINE HIGH 160 - 189 mg/dl HIGH >190 mg/dl VERY HIGH Performed By: #### L IPID, CMP #### [facility] [address] [place] [address] Dr. Radha Land Triglyceride [Mass/Vol] 86 mg/dL Normal <=150 [facility] Comment on above: Performed By: #### L IPID, CMP #### [facility] [address] [place] [address] Dr. Radha Land VLDL CALC 17.2 mg/dL Normal [facility] Comment on above: Performed By: #### L IPID, CMP #### [facility] [address] [address] [address] Radha Land MG MAMM SCREEN 3D GIANCARLO CADon 11-07-2021 MG MAMM SCREEN 3D GIANCARLO CAD Patient: EDUARDO LEA Exam Date: 11/07/2021 : 1940 Gender:F Ordering : DR SAVANNA HIGGINS M.D. Admission #: [id number] Family : Order #: [id number] CLICK HERE TO VIEW EXAM RADIOLOGY REPORT [...] ovarian cancer at age 47. LOCATION: [facility] BREAST COMPOSITION: Extremely dense, which lowers [...] Arriaga MD on 11/07/2021 at 11:21 Normal [facility] PROF 14(COMP METB)on 022 Albumin [Mass/Vol] 3.6 g/dL Normal 3.4-5.0 [facility] Comment on above: Performed By: #### L IPID, CMP #### [facility] [address] [place] [address] Dr. Radha Land Albumin/Globulin [Mass ratio] 0.9 {ratio} Normal [facility] Comment on above: Performed By: #### L IPID, CMP #### [facility] [address] [place] [address] Dr. Radha Land ALP [Catalytic activity/Vol] 79 U/L Normal 46-116 [facility] Comment on above: Performed By: #### L IPID, CMP #### [facility] [address] [place] [address] Dr. Radha Land ALT [Catalytic activity/Vol] 32 U/L Normal 14-59 [facility] Comment on above: Performed By: #### L IPID, CMP #### [facility] [address] [place] [address] Dr. Radha Land Anion gap [Moles/Vol] 6.1 mmol/L Normal [facility] Comment on above: Performed By: #### L IPID, CMP #### [facility] [address] [address] [address] Radha Land AST [Catalytic activity/Vol] 28 U/L Normal 15-37 [facility] Comment on above: Performed By: #### L IPID, CMP #### [facility] [address] [place] [address] Dr. Radha Land Bilirubin [Mass/Vol] 0.6 mg/dL Normal 0.2-1.0 [facility] Comment on above: Performed By: #### L IPID, CMP #### [facility] [address] [place] [address] Dr. Radha Land Calcium [Mass/Vol] 9.1 mg/dL Normal 8.5-10.1 [facility] Comment on above: Performed By: #### L IPID, CMP #### [facility] [address] [place] [address] Dr. Radha Land Chloride [Moles/Vol] 104 mmol/L Normal 98-107 [facility] Comment on above: Performed By: #### L IPID, CMP #### [facility] [address] [place] [address] Dr. Radha Land CO2 [Moles/Vol] 31.0 mmol/L Normal 21.0-32.0 [facility] Comment on above: Performed By: #### L IPID, CMP #### [facility] [address] [place] [address] Dr. Radha Land Creatinine [Mass/Vol] 0.86 mg/dL Normal 0.55-1.02 [facility] Comment on above: Performed By: #### L IPID, CMP #### [facility] [address] [place] [address] Dr. Radha Land EGFR-AF [place]LANDER >60 Normal >=60 [facility] Comment on above: Performed By: #### L IPID, CMP #### [facility] [address] [address] [address] Radha Land EGFR-NON AF [place] >60 Normal >=60 [facility] Comment on above: Performed By: #### L IPID, CMP #### [facility] [address] [address] [address] Radha Land Globulin (S) [Mass/Vol] 4.1 g/dL Normal [facility] Comment on above: Performed By: #### L IPID, CMP #### [facility] [address] [address] [address] Radha Land Glucose [Mass/Vol] 89 mg/dL Normal 74-106 [facility] Comment on above: Performed By: #### L IPID, CMP #### [facility] [address] [place] [address] Dr. Radha Land Potassium [Moles/Vol] 4.1 mmol/L Normal 3.5-5.1 [facility] Comment on above: Performed By: #### L IPID, CMP #### [facility] [address] [place] [address] Dr. Radha Land Protein [Mass/Vol] 7.7 g/dL Normal 6.4-8.2 [facility] Comment on above: Performed By: #### L IPID, CMP #### [facility] [address] [place] [address] Dr. Radha Land Sodium [Moles/Vol] 137 mmol/L Normal 136-145 [facility] Comment on above: Performed By: #### L IPID, CMP #### [facility] [address] [place] [address] Dr. Radha Land Urea nitrogen [Mass/Vol] 12.0 mg/dL Normal 7.0-18.0 [facility] Comment on above: Performed By: #### L IPID, CMP #### [facility] [address] [place] [address] Dr. Radha Land Urea nitrogen/Creatinine [Mass ratio] 14.0 mg/mg Normal [facility] Comment on above: Performed By: #### L IPID, CMP #### [facility] [address] [address] [address] Radha Land Vital Signs Date Time Vital Sign Value Performing Clinician Facility 10-14-2024 09:57-0400 Body height 165.1 cm [facility] 10-14-2024 09:57-0400 Body mass index (BMI) [Ratio] 20.3 kg/m2 [facility] 10-14-2024 09:57-0400 Body weight 55.56 kg [facility] 10-14-2024 09:57-0400 Diastolic blood pressure 81 mm[Hg] [facility] 10-14-2024 09:57-0400 Heart rate 84 /min [facility] 10-14-2024 09:57-0400 Systolic blood pressure 160 mm[Hg] [facility] 09-15-2024 08:18-0400 Body weight 55.1 kg [facility] 09-15-2024 08:18-0400 Diastolic blood pressure 71 mm[Hg] [facility] 09-15-2024 08:18-0400 Systolic blood pressure 109 mm[Hg] [facility] 11-18-2023 10:53-0400 Body height 165.1 cm [facility] 11-18-2023 10:53-0400 Body mass index (BMI) [Ratio] 20.5 kg/m2 [facility] 11-18-2023 10:53-0400 Body weight 55.79 kg [facility] 11-18-2023 10:53-0400 Diastolic blood pressure 55 mm[Hg] [facility] 11-18-2023 10:53-0400 Heart rate 65 /min [facility] 11-18-2023 10:53-0400 Systolic blood pressure 132 mm[Hg] [facility] 11-06-2023 11:11-0400 Body height 165.1 cm [facility] 11-06-2023 11:11-0400 Body mass index (BMI) [Ratio] 20.2 kg/m2 [facility] 11-06-2023 11:11-0400 Body weight 55.33 kg [facility] 11-06-2023 11:11-0400 Diastolic blood pressure 67 mm[Hg] [facility] 11-06-2023 11:11-0400 Heart rate 61 /min [facility] 11-06-2023 11:11-0400 Systolic blood pressure 124 mm[Hg] [facility] 10-13-2023 12:31-0400 Blood Pressure Location Roman ORTEGA [facility] 10-13-2023 12:31-0400 Diastolic blood pressure 78 mm[Hg] Roman ORTEGA [facility] 10-13-2023 12:31-0400 Heart rate 80 /min Roman ORTEGA [facility] 10-13-2023 12:31-0400 Respiratory rate 16 /min Roman ORTEGA [facility] 10-13-2023 12:31-0400 Systolic blood pressure 134 mm[Hg] Roman ORTEGA [facility] 09-30-2023 14:31-0400 Body height 165.1 cm [facility] 09-30-2023 14:31-0400 Body mass index (BMI) [Ratio] 20.5 kg/m2 [facility] 09-30-2023 14:31-0400 Body weight 55.79 kg [facility] 09-30-2023 14:31-0400 Diastolic blood pressure 62 mm[Hg] [facility] 09-30-2023 14:31-0400 Heart rate 64 /min [facility] 09-30-2023 14:31-0400 Systolic blood pressure 104 mm[Hg] [facility] 09-17-2023 08:00-0400 Blood Pressure Location Roman ORTEGA [facility] 09-17-2023 08:00-0400 Diastolic blood pressure 80 mm[Hg] Roman ORTEGA [facility] 09-17-2023 08:00-0400 Heart rate 64 /min Roman ORTEGA [facility] 09-17-2023 08:00-0400 Systolic blood pressure 132 mm[Hg] Roman ORTEGA [facility] 01-10-2023 09:45-0400 Body height 165.1 cm Savanna Higgins Other [facility] Other 01-10-2023 09:45-0400 Body mass index (BMI) [Ratio] 20.87 kg/m2 Savanna Higgins Other [facility] Other 01-10-2023 09:45-0400 Body weight 56.88 kg Savanna Higgins Other [facility] Other 01-10-2023 09:45-0400 Diastolic blood pressure 78 mm[Hg] Savanna Higgins Other [facility] Other 01-10-2023 09:45-0400 Systolic blood pressure 142 mm[Hg] Savanna Higgins Other [facility] Other 10-28-2022 08:30-0400 Body height 165.1 cm Savanna Higgins Other [facility] Other 10-28-2022 08:30-0400 Body mass index (BMI) [Ratio] 20.47 kg/m2 Savanna Higgins Other [facility] Other 10-28-2022 08:30-0400 Body weight 55.79 kg Savanna Higgins Other [facility] [employer] Other 10-28-2022 08:30-0400 Diastolic blood pressure 47 mm[Hg] Savanna Higgins Other [facility] Other 10-28-2022 08:30-0400 Systolic blood pressure 124 mm[Hg] Savanna Higgins Other [employer] [facility] Other Encounters Encounter Date Encounter Type Care Provider Facility Start: 11-29-2024 ambulatory Roman Mota ty:[facility] Start: 11-01-2024 End: 11-01-2024 ambulatory Dulce Cifuentes MD Facility:[facility] Start: 10-14-2024 End: 10-14-2024 ambulatory [facility] Work Phone: Start: 10-14-2024 End: 10-14-2024 Patient encounter procedure [facility]ician [facility] Work Phone: Start: 09-15-2024 End: 09-15-2024 ambulatory [facility] Work Phone: Start: 09-15-2024 End: 09-15-2024 Patient encounter procedure [facility] Physician [facility] Work Phone: Start: 08-18-2024 End: 08-18-2024 [facility] Work Phone: Start: 08-18-2024 End: 08-18-2024 Patient encounter procedure [facility] Work Phone: Start: 03-16-2024 End: 03-16-2024 ambulatory [facility] Work Phone: Start: 03-16-2024 End: 03-16-2024 Patient encounter procedure [facility]ician [facility] Work Phone: Start: 02-02-2024 End: 02-02-2024 ambulatory Dulce Cifuentes MD Facility:[facility] Start: 01-05-2024 End: [facility] Start: 01-05-2024 End: 01-05-2024 Bamboo cathie Hoyt MD Work Phone: [facility] Start: 01-05-2024 End: 01-05-2024 ambulatory REBECA HOYT Not Available Start: 12-09-2023 End: 12-09-2023 ambulatory [facility] Work Phone: Start: 12-09-2023 End: 12-09-2023 Patient encounter procedure [facility] Work Phone: Start: 11-18-2023 End: 11-18-2023 ambulatory [facility] Work Phone: Start: 11-18-2023 End: 11-18-2023 Patient encounter procedure [facility] Work Phone: Start: 11-10-2023 Patient encounter procedure [facility] Start: 11-06-2023 End: 11-06-2023 Patient encounter procedure [facility] Work Phone: Start: 10-13-2023 End: 10-13-2023 Patient encounter procedure Roman ORTEGA [facility] Start: 09-30-2023 End: 09-30-2023 ambulatory [facility] Work Phone: Start: 09-30-2023 End: 09-30-2023 Patient encounter procedure [facility] Work Phone: Start: 09-17-2023 End: 09-17-2023 Patient encounter procedure Roman ORTEGA [facility] Start: 09-09-2023 Non-patient / Non-visit [facility] Work Phone: Start: 08-26-2023 End: 08-26-2023 ambulatory [facility] Work Phone: Start: 08-26-2023 End: 08-26-2023 Patient encounter procedure [facility] Work Phone: Start: 03-28-2023 End: 03-28-2023 ambulatory Savanna Gisela Other [employer] [facility] Other Start: 03-28-2023 Telephone encounter Savanna Higgins [facility] Start: 01-31-2023 End: 01-31-2023 ambulatory Savanna Gisela Other [employer] [facility] Other Start: 01-31-2023 Nursing evaluation o f patient and report Savanna Higgins [facility] Start: 01-14-2023 End: 01-14-2023 ambulatory Savanna Higgins Other [employer] [facility] Other Start: 01-14-2023 Telephone encounter Savanna Higgins [facility] Start: 01-10-2023 End: 01-10-2023 ambulatory Savanna Higgins Other [employer] [facility] Other Start: 01-10-2023 Office outpatient visit 15 minutes Savanna Higgins [facility] Start: 10-28-2022 End: 10-28-2022 ambulatory Savanna Higgins Other [employer] [facility] Other Start: 10-28-2022 Patient encounter procedure Savanna Higgins [facility] Start: 10-24-2022 End: 10-24-2022 ambulatory Savanna Higgins Other [employer] [facility] Other Start: 10-24-2022 Telephone encounter Savanna Higgins [facility] Start: 10-08-2022 End: 10-08-2022 ambulatory NARENDRANATH LAKSHMIPATHY . Facility: Start: 10-02-2022 End: 10-03-[address] SAVANNA [...] 12-31-2021 Adult health examination Savanna Higgins Other [employer] Other Start: 12-31-2021 End: 01-01-[address] SAVANNA HIGGINS Facility:[facility] Start: 12-25-2021 End: 12-26-[address] VALENTINA BECKER . Facility:[facility] Start: 12-19-2021 End: 12-20-[address] VALENTINA BECKER . Facility:[facility] Start: 11-07-2021 End: 11-08-[address] SAVANNA HIGGINS Facility:[facility] Start: 03-01-2017 End: 03-01-2017 ambulatory [facility] Facility:[facility] Procedures Date Procedure Procedure Detail Performing Clinician Start: 01-05-2024 End: 01-05-2024 Oph medical xm&eval comprhnsv estab pt 1/> Dry eyes Rebeca Hoyt MD Work Phone: Comment on above: Dry eyes (Primary Dx ); PCO (posterior capsular opacification), bilateral Start: 02-28-2014 right cataract extra ction with intraocular lens implantation Roman ORTEGA Cataract extraction and insertion of intraocular lens Roman ORTEGA Comment on above: left eye cervical herniated d isc removed Roman ORTEGA Excision of bunion Roman SEVILLA Comment on above: bilateralwillard Hysterectomy and giancarlo ateral salpingo-oophorectomy sample (specimen) Roman ORTEGA Screening for malign ant neoplasm of breast Savanna Higgins Other stapidectomy 3 Roman Rothman Comment on above: right ear Plan of Treatment Date Care Activity Detail Author Start: 10-14-2024 Patient referral [facility] Work Phone: Start: 09-15-2024 Patient referral [facility] Work Phone: Start: 01-11-2024 Influenza vaccination Influenza Vacc ine (#1) [facility] Start: 01-05-2024 End: 01-05-2024 Patient encounter procedure 01/05/2024 2:00 PM EDT Office Visit [facility] [address] [place] [address] Rebeca Hoty MD [address] [place] [address] Arrived [facility] Comment on above: Arrived Start: 03-10-2019 Pneumococcal Vaccine : 65+ Years (2 of 2 - PPSV23 or PCV20) Pneumococcal Vaccine: 65+ Years (2 of 2 - PPSV23 or PCV20) [facility] Diagnostic radiograp hy of abdomen [facility] MG Breast - bilatera l Screening [facility] Patient Education Low back pain in adults [facility] Work Phone: Patient referral [facility] Work Phone: [facility] Immunizations Immunization Date Immunization Notes Care Provider Fa cility 03-16-2024 influenza, high dose seasonal, preservative-free [facility] 02-14-2023 influenza virus vaccine, unspecified formulation Roman ORTEGA [facility] 03-12-2022 SARS-CoV-2 (COVID-19 ) [id number] Roman ORTEGA [facility] Comment on above: Result Comment: 2023: [id number] 02-28-2022 influenza virus vaccine, split virus (incl. purified surface antigen) Savanna Higgins Other [employer] [facility] Other 02-28-2022 influenza virus vaccine, unspecified formulation [facility] 11-09-2021 SARS-CoV-2 (COVID-19 ) mRNA-1273 vaccine Roman ORTEGA [facility] Comment on above: Result Comment: 2023: [id number] 03-08-2021 SARS-CoV-2 (COVID-19 ) mRNA-1273 vaccine Roman ORTEGA [facility] 02-27-2021 influenza virus vaccine, split virus (incl. purified surface antigen) Savanna Higgins Other [employer] [facility] Other 02-27-2021 influenza virus vaccine, unspecified formulation [facility] 06-29-2020 SARS-CoV-2 (COVID-19 ) mRNA-1273 vaccine Roman ORTEGA [facility] 06-01-2020 SARS-CoV-2 (COVID-19 ) mRNA-1273 vaccine Roman ORTEGA [facility] 03-14-2020 zoster vaccine recombinant Roman ORTEGA [facility] 02-16-2020 influenza virus vaccine, split virus (incl. purified surface antigen) Savanna Higgins Other [employer] [facility] Other 02-16-2020 influenza virus vaccine, unspecified formulation [facility] 10-25-2019 pneumococcal polysaccharide vaccine, 23 valent Savanna Higgins Other [facility] 01-25-2019 influenza virus vaccine, unspecified formulation Roman ORTEGA [facility] 03-10-2018 pneumococcal conjuga te vaccine, 13 valent Savanna Higgins Other [facility] 02-14-2018 influenza virus vaccine, unspecified formulation Roman ORTEGA [facility] 01-08-2017 influenza virus vaccine, split virus (incl. purified surface antigen) Savanna Higgins Other [employer] [facility] Other 01-08-2017 influenza virus vaccine, unspecified formulation [facility] 02-06-2016 influenza virus vaccine, split virus (incl. purified surface antigen) Savanna Higgins Other [employer] Other 02-06-2016 influenza virus vaccine, unspecified formulation [facility] 03-24-2015 influenza virus vaccine, split virus (incl. purified surface antigen) Savanna Higgins Other [employer] [facility] Other 03-24-2015 influenza virus vaccine, unspecified formulation [facility] 02-26-2013 tetanus and diphther ia toxoids, adsorbed, preservative free, for adult use (5 Lf of tetanus toxoid and 2 Lf of diphtheria toxoid) Savanna Higgins Other [facility] Payers Date Payer Category Payer Private Health Insurance 2022 Medicare [id number] 2017 Self-pay 1960 Medicare [id number] 1940 Unknown [id number] 1940 Unknown [id number] [id number]3 1940 Unknown [id number] 2.16.840.1.797044.3.579.2.593 1940 Unknown [id number] 2.16.840.1.176595.3.579.2.593 1940 Unknown [id number] 2.16.840.1.106331.3.579.2.593 1940 Unknown [id number] 2.16.840.1.599939.3.579.2.593 1940 Unknown [id number] 2.16.840.1.265625.3.579.2.593 1940 Unknown [id number] 2.16.840.1.457666.3.579.2.593 1940 Unknown [id number] 2..840.1.869353.3.579.2.593 1940 Unknown [id number] 2.16.840.1.778614.3.579.2.593 1940 Unknown [id number] 2.16.840.1.551673.3.579.2.593 1940 Unknown [id number] 2.16.840.1.167075.3.579.2.593 1940 Unknown [id number] 2.16.840.1.264620.3.579.2.1259 1940 Unknown [id number] 2.16.840.1.613330.3.579.2.727 1940 Unknown [id number] 2.16.840.1.644504.3.579.2.196 1940 Unknown [id number] 2.16.840.1.000963.3.579.2.196 Private Health Insurance [id number] [id number] Private Health Insurance [employer] [facility] [id number] Unknown [id number] [id number] Social History Date Type Detail Facility Unknown if ever smoked [employer] [facility] Other Sex Assigned At [facility] Start: 1940 Sex Assigned At Female F [facility] Start: 12-25-2022 End: 09-17-2023 Tobacco smoking status Never smoked tobacco (finding) [facility] Tobacco smoking status Never [facility] Start: 1940 Sex assigned at Not on file N [facility] if ever smoked [facility] [facility] Work Phone: Start: 08-18-2024 End: 10-14-2024 Sex Female (finding) [facility] Functional Status Date Assessment Result Facility 10-13-2023 Functional Status N/A [facility] 09-17-2023 Functional Status N/A [facility] Clinical Notes 12-19-2021 to 08-18-2024 Note Date & Type Note Facility 08-18-2024 Evaluation note Diagnosis Onset Date Resolution Seasonal allergic rhinitis acute August 18, 2024 11:44am [facility] Work Phone: 1(267) 141-916004-09-2025 Evaluation note* Diagnosis Onset Date Resolution Status Admit Date Seasonal allergic rhinitis acute August 18, 2024 11:44am Lumbar back pain acute September 15, 2024 8:13am Lumbar back pain acute October 9:56am [facility] Work Phone: 1(739) 575-468408-26-2024 History of Present illness Narrative* Rebeca Hoyt MD - 01/05/2024 2:00 PM EDT Assessment/Plan Dry Eyes OU -- Environmental changes to minimize dryness and exposure and the use of artificial tears were recommended. [id number] [facility] Discharge instructions Patient Education 10/13/2023 13:39:08 Kidney Stones, Eayo-lz-Gtpi Kidney Stones Kidney stones are rock-like masses [...] Follow these instructions at home: Medicines Take xzny-gzw-atpdlaw and prescription medicines only as told by [...] provider. Document Revised: 12/31/2021 Document Reviewed: 12/31/2021 [employer] Patient Education 2022 [employer] Follow Up Care 09/17/2023 08:40:02 With:SHANNON SALGUERO, Roman Mitchell, URL Address: [facility] [address], [place] [address]- [phone] When: Unknown [facility] 05-08-2024 Hospital Discharge instructions Patient Education 09/17/2023 08:38:12 Kidney Stones Kidney Stones Kidney stones are solid, rock-like deposits that form inside of the kidneys. The kidneys are a pairof organs that make urine. A kidney stone [...] the ribs (flank pain). Pain usually spreads (radiates)to the groin. Needing to urinate often or [...] Follow these instructions at home: Medicines Take knvd-pxg-yadmvix and prescription medicines only as told by [...] provider. Document Revised: 08/07/2022 Document Reviewed: 08/07/2022 [employer] Patient Education 2022 [employer] Follow Up Care 09/11/2023 08:49:49 With:SHANNON SALGUERORoman, URL Address: [facility] [address] [place] [address]- When: Unknown [facility] 09-22-2023 Evaluation note* Encounter Date Diagnosis Assessment Notes Treatment Notes Treatment Clinical Notes Jan, Seasonal allergic rhinitis, unspecified trigger (ICD-10 - J30.2) [facility] Other 09-01-2023 Evaluation note* Encounter Date Diagnosis Assessment Notes Treatment Notes Treatment Clinical Notes Jan, Piriformis syndrome of left side (ICD-10 - G57.02) Unable to add more tramadol - likely has pain clinic w [place] [facility]. PT order printed. Add steroids. Also gave copies of home exercises. [facility] [employer] [employer] [facility] Other 06-19-2023 Evaluation note* Encounter Date [...] - order handwritten and given to pt [employer] [facility] Other 04-27-2023 NoteCONSULTATION CONSULTATION DATE: 09/05/2022 [...] our patients to inform us about any lhxj-hau-qxuneeo medications or herbal remedies/nutritional supplements/alternative remedies. 2. [...] treatment options with their primary care provider.[id number] Note CONSULTATION PROCEDURE DATE: 12/25/2021 PREOPERATIVE DIAGNOSIS: [...] procedurally range of motion exercises are performed.[facility] 12-19-2021 NoteCONSULTATION CONSULTATION DATE: 12/19/2021 This [...] where she was seen by the physician anatomic pathology assistant in the office and received left [...] plan of care, to be contacted LARISA.[facility] note Future Appointments Appointment Date:10/13/2023 12:15:00 PM Scheduled Provider:Roman ORTEGA MD Location:[facility] Appointment Type:URO Office Visit [facility] Evaluation noteNo InformationNort Doostang Other Evaluation noteNo assessment information available [facility] Work Phone: Evaluation note* Diagnosis Onset Date Resolution Status Right lumbar pain acute [facility] Work Phone: Evalusissi note* Diagnosis Onset Date Resolution Status Right lumbar pain acute Medicare annual wellness visit, subsequent acute Nephrolithiasis acute Screening mammogram for breast cancer acute [facility] Work Phone: Evaluation note* Diagnosis Onset Date Resolution Status Right lumbar pain acute Medicare annual wellness visit, subsequent acute Nephrolithiasis acute Screening mammogram for breast cancer acute Laceration of left lower leg without complication acute Lumbar back pain acute [facility] Work Phone: Evaluation note* Diagnosis Dry eyes- Primary 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), bilateral Unspecified after-cataract documented in this encounter [facility] - Reported* Type Description Date Medical History migraine headache Medical History dizziness Medical History tremors Surgical History hysterectomy Surgical History bunionectomy Surgical History stapedectomy Hospitalization History see above [employer] Other Hospital course Narrative No data available for this section [facility] Hospital Discharge instructionsAmbulatory Orders* Referral to PT / OT / Speech (PT/OT/SP) Location: None Selected [facility] Work Phone: Hospital Discharge instructionsAmbulatory Orders* Referral to Orthopedic Surgery Location: None Selected [facility] Work Phone: Progress note No data available for this section [facility] Summary Purpose Family History No Family History [...] Lumbar back pain Chief Complaint flu shot Chief Complaint Admit Date Allergy Shot August 18, 2024 11:4 4am Chief Complaint Admit Date Allergy Shot August 18, 2024 11:4 4am fu after PT-doing pt in [place] September 15, 2024 8:13am Reason for Visit Admit Date Seasonal allergic rhinitis August 18 11:44am Chief Complaint Admit Date Allergy Shot August 18, 2024 11:4 4am fu after [place] in [place] September 15, 2024 8:13am back pain October 14, 2024 9:56a m Reason for Visit Admit Date Seasonal allergic rhinitis August 18 11:44am Lumbar back pain September 15, 2024 8:13am Lumbar back pain October 14, 2024 9:56a m Additional Source Comments INFORMATION SOURCE (unrecogn ized section and content) DATE CREATED AUTHOR 10/18/2022 [facility] DATE CREATED AUTHOR AUTHOR'S ORGANIZ ATION 01/06/2024 [facility] EPIC DATE CREATED AUTHOR AUTHOR'S ORGANIZ ATION 09/19/2024 [facility] DATE CREATED AUTHOR AUTHOR'S ORGANIZ ATION 10/15/2024 [facility] DATE CREATED AUTHOR AUTHOR'S ORGANIZ ATION 11/09/2024 [facility] REASON FOR VISIT (unrecogniz ed section and content) Reason Comments Eye Exam [facility] Eye Care Teams (unrecognized sec tion and content) [...] Savanna Higgins MD Primary Care Provider Active Start: March 16, 2024 End: March 16, 2024 Mike Alfonso DO Attending Provider Active Sta rt: March 16, 2024 End: March 16, 2024 Home Care Physical Therapist Relationship Specialty Start Date End Date Valeriy Higgins MD [address] [place] [address] [phone] PCP - General 12/25/22 Home Care Physical Therapist Relationship Specialty Start Date End Date Valeriy Higgins MD [address] [phone] PCP - General 12/25/22 Team Status: Inactive Member Role Status Dates Savanna Higgins MD Primary Care Provide r, Attending Provider Active Start: August 18, 2024 End: August 18, 2024 Team Status: Inactive Member Role Status Dates Savanna Higgisn MD Primary Care Provider Active Start: September 15, 2024 End: September 15, 2024 Gerardo Vanegas DO Attending Provider Active S tart: September 15, 2024 End: September 15, 2024 Team Status: Inactive Member Role Status Dates Savanna Higgins MD Primary Care Provide r, Attending Provider Active Start: October 14, 2024 End: October 14, 2024 Goals (unrecognized section and content) Goals [...] BE BASED ON THE PRIMARY CLINICAL RECORDS. [facility]. provides no warranty or guarantee of the accuracy or completeness of information in this document.
--- NOTE | 2024-11-26 08:07 | XR_ITS ---
The [address] [address] Patient Name: EDUARDO LEA MRN: [id number] date: 1940 Sex: F Assigned Patient Location: LAB Current Patient Location: LAB Accession/Order Number: [id number] Exam Date: 11/26/2024 08:51 Report Date: 11/26/2024 08:54 At the request of: STAN ORTEGA MD Procedure: XR abdomen 1V SINGLE VIEW ABDOMEN COMPARISON: 11/06/2023 CLINICAL DATA: Follow-up kidney stones Supine views of the abdomen and pelvis were obtained. There is small and large bowel air. There is a small amount of colonic stool. No soft tissue masses are noted. The left kidney is obscured however no obvious renal stones are identified. There is an irregular stone or adjacent stones at the midpole of the right kidney measuring 8 mm in total. No suspect ureteral calculi are identified. There is levoscoliotic curvature and degenerative changes at the spine. XR/XR abdomen 1V IMPRESSION: RIGHT NEPHROLITHIASIS. Impression dictated by: Risa Mcdermott M.D. 11/26/2024 8:54 AM Dictation Location: [place] [address] Electronically authenticated by: [id number] Y Date: 11/26/2024 08:54
== END 2024-11-26 07:59 | disposition home or self-care (01) ==
LOC: LAB 08:00
PROVIDERS: PCP Family Medicine; Visit Provider Urology
DX: N20.0 Calculus of kidney (principal)
CPT/HCPCS: 74018

== ENCOUNTER 2024-12-24 09:32 | Outpatient (OUT) | payer MEDICARE, SELFPAY ==
--- OUTSIDE RECORDS SUMMARY | 2024-12-17 05:10 | XMS_ITS ---
Author Organization [facility] Address [address] [place] [address] Care Team Providers Care Pharmaceutical Salesperson Name Role Phone Savanna Guajardo M.D. Primary Care Provider Unavail able Kandi Alanizjonathan Unavailable [phone] REASON FOR VISIT lumbar CT myelogram review Medications Medication SIG (Take, Route, Fr equency, Duration) Notes Start Date End Date Status traMADol 50 mg 1 tab(s) Activ e atenolol 50 mg 1 tab(s) Activ e diclofenac Active Social History Tobacco Use: Social History Observation Description Date Details (start date - stop date) Never Smoker NA - NA AUDIT-C (Standard) Question Answer Notes Did you have a drink containing alcohol in the p ast year? No Points 0 Interpretation Negative Tobacco Control (Standard) Question Answer Notes Tobacco use: Nonsmoker Section Notes: - Physical Activity: Patient is active and participates in bus trips - Functional Status: Reports difficulty getting out of bed some days, can only stand for 5-10 minutes at times - Hobbies/Interests: Enjoys bus trips Problems Problem Type SNOMED Code ICD Code Onset Dates Problem Status W/U Status Risk Notes Problem 24156333 Lumbar stenosis with neurogenic claudication (M48.062) Active confirmed Problem 704087150 Scoliosis of lumbar spine, unspecified scoliosis type (M41.9) Active confirmed Procedures Procedure Date Ordered Date Performed Result Body Sit e EKG 12/17/2024 N/A Encounters Encounter Location Date Provider Diagnosis [facility] [address] [place] [address] 12/17/2024 [facility] Lumbar stenosis with neurogenic claudication M48.062 and Scoliosis of lumbar spine, unspecified scoliosis type M41.9 Assessments Encounter Date Diagnosis (ICD Code) Assessment Notes Treatment Notes Treatment Clinical Notes Section Notes 12/17/2024 Lumbar stenosis with neurogenic claudication (ICD-10 - M48.062) Salvador Ocasio presents with back and hip pain that started 6 months ago, with degenerative scoliosis and severe spinal pressure causing significant functional limitations. 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 The condition is causing significant back and hip pain, with symptoms progressing over the past 6 months. Conservative treatments including physical therapy and injections have been ineffective. The patient reports severe functional limitations, including difficulty getting out of bed and standing for extended periods. The degenerative changes have resulted in curvature of the spine, vertebral misalignment, and impingement on spinal nerves. Arthritis and bone spurs are contributing to the patient's discomfort. Given the failure of conservative management and the impact on quality of life, surgical intervention is being considered. 12/17/2024 Scoliosis of lumbar spine, unspecified scoliosis type (ICD-10 - M41.9) Salvador Ocasio presents with back and hip pain that started 6 months ago, with degenerative scoliosis and severe spinal pressure causing significant functional limitations. 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 The condition is causing significant back and hip pain, with symptoms progressing over the past 6 months. Conservative treatments including physical therapy and injections have been ineffective. The patient reports severe functional limitations, including difficulty getting out of bed and standing for extended periods. The degenerative changes have resulted in curvature of the spine, vertebral misalignment, and impingement on spinal nerves. Arthritis and bone spurs are contributing to the patient's discomfort. Given the failure of conservative management and the impact on quality of life, surgical intervention is being considered. 12/17/2024 Other Plan - Recommend surgical intervention: L2 to S1 spinal fusion to correct curvature and stabilize spine. - Order Dexa scan to assess bone quality - Arrange for medical clearance prior to surgery - Obtain informed consent, discussing risks (potential for blood loss, extended recovery time for some patients), benefits (improved mobility, pain relief), and alternatives (continued conservative management with limited efficacy) - Consider scheduling surgery at [facility] based on availability - Provide patient education on post-operative care and recovery expectations - Arrange for post-operative follow-up in 3-4 weeks to evaluate recovery progress Salvador Eduardo presents with back and hip pain that started 6 months ago, with degenerative scoliosis and severe spinal pressure causing significant functional limitations. 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 The condition is causing significant back and hip pain, with symptoms progressing over the past 6 months. Conservative treatments including physical therapy and injections have been ineffective. The patient reports severe functional limitations, including difficulty getting out of bed and standing for extended periods. The degenerative changes have resulted in curvature of the spine, vertebral misalignment, and impingement on spinal nerves. Arthritis and bone spurs are contributing to the patient's discomfort. Given the failure of conservative management and the impact on quality of life, surgical intervention is being considered. Plan Of Treatment Treatment Notes Assessment Notes Other Plan - Recommend surgical intervention: L2 to S1 spinal fusion to correct curvature and stabilize spine. - Order Dexa scan to assess bone quality - Arrange for medical clearance prior to surgery - Obtain informed consent, discussing risks (potential for blood loss, extended recovery time for some patients), benefits (improved mobility, pain relief), and alternatives (continued conservative management with limited efficacy) - Consider scheduling surgery at [facility] based on availability - Provide patient education on post-operative care and recovery expectations - Arrange for post-operative follow-up in 3-4 weeks to evaluate recovery progress Pending Test Test Name Order Date Chest 2 views - [id number] 12/17/2024 CBC 12/17/2024 PT/PTT 12/17/2024 BMP 12/17/2024 MRSA (Bilateral Nares) PCR 12/17/2024 EKG 12/17/2024 Next Appt Details Follow Up: schedule surgery, Reason: Provider Name:Jae Doran Brian , 12/31/2024 09:50:00 AM, [address] [place], [phone], Provider Name:Jae Dooley [facility], 01/04/2025 12:30:00 PM, [address] [facility], [place], [place], [phone], Provider Name:[facility], 02/17/2025 10:10:00 AM, [address] [facility], [place], [phone], Progress Notes * EDUARDO LEA LDOB: (84 yo F)Acc No.[id number]:12/17/2024 Patient: EDUARDO GORMAN Provider: Lobito Sheth MD, PhD :1940 A ge:84 Y S ex:Female Date:12/17/2024 Address:[address] [place] [address], [id number] Pcp:Savanna Guajardo M.D. Subjective: * Chief Complaints: * [address] myelogram review. * HPI: G eneral Info per Patient Report: Patient consented to the use of [employer] to record and transcribe notes during this visit. History of Present Illness Salvador Ocasio presents with back and hip pain that started approximately 6 months ago. The patient reports that their hips began to jut out at the onset of symptoms. The pain is primarily localized in the back and hip area, with less pain in the legs. The condition has progressed to the point where there are days when the patient cannot get out of bed, and they often stand for 5-10 minutes just trying to get up. The patient has attempted conservative treatments, including physical therapy and injections, but reports these interventions were ineffective in managing their symptoms. The pain and mobility issues have significantly impacted the patient's quality of life and daily functioning. Despite these challenges, the patient describes themselves as active and mentions participating in bus trips. The severity of the condition is evident in the patient's description of their struggles with basic mobility. The pain and difficulty moving appear to be chronic and progressive over the past 6 months. The patient expresses a desire to maintain their active lifestyle, indicating that the current symptoms are interfering with their usual activities. * ROS: G eneral:Positive for fatigue. Musculoskeletal:Positive for back pain, hip pain, and difficulty standing. * Medical History: K idney stones, - Degenerative scoliosis, - Spinal arthritis with bone spurs. * Social History: E xercise regularly D o you exercise? Y es, H ow many times per week? 3 times, H ow long do you exercise? 3 0 min. D o you live W ith whom do you live? s pouse only. W orking status W hat is your working status R etired. M arital status M arital Status M arried. A ALLY-C (Standard) D id you have a drink containing alcohol in the past year? N o, P oints 0 , I nterpretation N egative. T obacco Control (Standard) T obacco use: N onsmoker. - Physical Activity: Patient is active and participates in bus trips - Functional Status: Reports difficulty getting out of bed some days, can only stand for 5-10 minutes at times - Hobbies/Interests: Enjoys bus trips. * Medications: T aking traMADol 50 mg tablet 1 tab(s) , Taking diclofenac , Taking atenolol 50 mg tablet 1 tab(s) Objective: * Vitals: * Examination: G eneral examination: General O riented t imes t hree. S ensation?intact- m otor s trength/. I maging: - CT myelogram:Degenerative scoliosis, age-related changes of the spine, curvature, impingement on nerves, L2-S1 severe stenosis, L3-5 spondylolisthesis. Assessment: * Assessment: 1. L umbar stenosis with neurogenic claudication - M48.062 (Primary) 2 . S coliosis of lumbar spine, unspecified scoliosis type - M41.9 Salvador Monteirored presents with b ack and hip pain that started 6 months ago, with degenerative scoliosis and severe spinal pressure causing significant functional limitations. 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 The condition is causing significant back and hip pain, with symptoms progressing over the past 6 months. Conservative treatments including physical therapy and injections have been ineffective. The patient reports severe functional limitations, including difficulty getting out of bed and standing for extended periods. The degenerative changes have resulted in curvature of the spine, vertebral misalignment, and impingement on spinal nerves. Arthritis and bone spurs are contributing to the patient's discomfort. Given the failure of conservative management and the impact on quality of life, surgical intervention is being considered. Plan: * Treatment: 2. O thers Notes: Plan - Recommend surgical intervention: L2 to S1 spinal fusion to correct curvature and stabilize spine. - Order Dexa scan to assess bone quality - Arrange for medical clearance prior to surgery - Obtain informed consent, discussing risks (potential for blood loss, extended recovery time for some patients), benefits (improved mobility, pain relief), and alternatives (continued conservative management with limited efficacy) - Consider scheduling surgery at [facility] based on availability - Provide patient education on post-operative care and recovery expectations - Arrange for post-operative follow-up in 3-4 weeks to evaluate recovery progress * Procedure Codes: 7 1046 X-RAY EXAM CHEST 2 VIEWS * Follow Up: [facility] Forms: * Images: * Electronic signature of Andrew Alaniz MD, PHD on 12/24/2024 at 09:34 AM EDT Sign off status: Pending * Provider: Lobito Sheth MD, PhD Date: 0 12/17/2024 Generated for Liberty tang/Juan/Josselyn on: 0 12/24/2024 09:34 AM EDT History and Physical Notes * HPI (History of Present Illness) Category Sub-Category Detail Notes Category Not es General Info per Patient Report Patient consented to the use of [employer] to record and transcribe notes during this visit. History of Present Illness Salvador Eduardo presents with back and hip pain that started approximately 6 months ago. The patient reports that their hips began to jut out at the onset of symptoms. The pain is primarily localized in the back and hip area, with less pain in the legs. The condition has progressed to the point where there are days when the patient cannot get out of bed, and they often stand for 5-10 minutes just trying to get up. The patient has attempted conservative treatments, including physical therapy and injections, but reports these interventions were ineffective in managing their symptoms. The pain and mobility issues have significantly impacted the patient's quality of life and daily functioning. Despite these challenges, the patient describes themselves as active and mentions participating in bus trips. The severity of the condition is evident in the patient's description of their struggles with basic mobility. The pain and difficulty moving appear to be chronic and progressive over the past 6 months. The patient expresses a desire to maintain their active lifestyle, indicating that the current symptoms are interfering with their usual activities. Examination Category Sub-Category Detail Notes Category Not es General examination General Oriented salomon es three. Sensation intact- 5/5 motor strength/ Imaging: - CT myelogram:Degenerat marysol scoliosis, age-related changes of the spine, curvature, impingement on nerves, L2-S1 severe stenosis, L3-5 spondylolisthesis.
--- OUTSIDE RECORDS SUMMARY | 2024-12-24 09:35 | XMS_ITS | Patient Health Record ---
Author Organization [facility] Address [address] [place] [address] Care Team Providers Care Beef Ribber Name Role Phone Savanna Guajardo M.D. Primary Care Provider Unavail able Jae Alaniz Unavailable [phone] Mark Lemus Unavailable [phone] Allergies No Known Allergies Results Component Value Reference Range Notes Surgery Scheduling (Not yet reviewed by provider) Interpretation: Performing Lab: Notes/Report: Primary Insurance Company: MEDICARE AETNA Surgeon/Assist: ST SCHAFER/PB OR MARK Surgery Location: [facility] Surgery Date & Time: 01/04/25 @ 12:30PM Hosp arrival time day of: 10:30AM Surgery End Time: 3:30PM Procedure: L2-S1 DECOMPRESSION AND FUSION, L5-S1 TLIF Special Equipment: SSEP, CELL SAVER, SD ONE, BHARATH TABLE, SURGALIGN Diagnosis: M48.062 STENOSIS Admission Type: INPATIENT Anesthesia Type/CPNB: GENERAL Post-op Appointment Date: 02/17/25 @ 10:10AM ANDREW Lab Location: [facility] Lab Date/Time: LARISA Wine Bottle Inspector: CASSIDY Sanchez Physician: GISELA Sanchez Appt Date/T @ 2:30PM History & Physical Appointme nt Date/: 12/31/24 @ 9:50AM ANDREW Reason For Referral Reason APPROVED............ .............NOT SCHEDULED.............................AETNA [facility] myelogram lumbar spine at [facility] Diagnosis 1 Lumbar pain (M54.50) Diagnosis 2 Degenerative scolios is (M41.50) Referral Organization [facility] Referring Provider First Name Jae Referring Provider Last Name St Schafer Referring Provider Speciality Orthopedic Surgery Referred Organization [facility] Referred Address [address] [place],[address],[place] Procedure 1 CT lumbar spine; W/ contrast material (14961) General Notes Baylee Aponte 10/10 11:00:03 AM >, Lori Kumari 10/22/2024 11:04:40 AM > WAITING ON TODAY'S OFFICE NOTE, Lori Kumari 10/26/2024 09:33:55 AM > AUTHORIZATION # [id number] APPROVED AND VALID 10/26/24-04/24/25 PER BONNY. SCANNED INTO CHART AND FAXED TO FACILITY., Baylee Aponte 10/26/2024 01:57:35 PM > faxed to [facility]- [phone] Referral Priority Routine Reason PENDING OUTPATIENT...................................01/04/25............................ .......AETNA MCR L2-S1 DECOMPRESSION AND FUSION , L5-S1 TLIF 22100, 09567, 13651 x3, 79662, 06157 x2, 44441, [address]388, [address] Diagnos is 1 Degenerative scoliosis (M41.50) Diagnos is 2 Lumbar stenosis with neurogenic claudica tion (M48.062) Diagnos is 3 Scoliosis of lumbar spine, unspecified s coliosis type (M41.9) Referra l [facility] Referri ng Provide r First Name Jae tang Provide r Last Name St Kim tang Provide r Special ity Orthopedic Surgery Referre d [facility] Ref[facility] d Address [address] [place], [place],[address] 214,[place] Procedu re 1 Arthrodesis, PLIF w/ PSF including karli ectomy and/or discectomy, sufficient to prepare interspace (other than for decompression), single interspace and segment; lumbar (16892) Procedu re 2 GARCIA FACETC/FRMT ARTHRD LUM 1 (08412) Procedu re 3 Arthrodesis single, each addn'l level, p osteriolateral technique (49813) Procedu re 4 Laminectomy, facetectomy and foraminotom y single lumbar (00592) Procedu re 5 Laminectomy, facetectomy and foraminotom y additional vertebral segment (05003) Procedu re 6 Posterior segmental instrumentation, 3 t o 6 segments (82109) Procedu re 7 INSJ BIOMECHANICAL DEVICE (19435) Procedu re 8 Autograft for spine surgery only; local obtained from same incision (25277) General Notes Cassidy Stephens 12/23/2024 01:18:19 PM >, Lori Kumari 12/23/2024 03:09:24 PM > AUTHORIZATION REQUEST SUBMITTED OUTPATIENT VIA [employer]AILITY WITH CLINICALS AND AETNA SPINE FORM, PENDING AUTHORIZATION # [id number]. TURN AROUND TIME IS 14 DAYS. Referra l Priorit y Urgent Medications Medication SIG (Take, Route, Fr equency, [...] Problem Status W/U Status Risk Notes Problem [id number] Scoliosis of lumbar spine, unspecified scoliosis type (M41.9) Active confirmed Problem 53633644 Lumbar stenosis with neurogenic claudication (M48.062) Active confirmed Problem 561750998 Degenerative scoliosis (M41.50) Active confirmed Vital Signs Height 5'5 in 10/22/2024 Weight 125 lbs 10/22/2024 BMI 20.8 10/22/2024 Procedures Procedure Date Ordered Date Performed Result Body Sit e EKG 12/17/2024 N/A Encounters Encounter Location Date Provider Diagnosis [facility] [address] [place] [phone] 12/17/2024 Selvon Corbin Lumbar stenosis with neurogenic claudication M48.062 and Scoliosis of lumbar spine, unspecified scoliosis type M41.9 [facility] [address] [place] [phone] 10/22/2024 Mark Diglio Lumbar pain M54.50 ; [...] disease 4. 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 12/17/2024 Lumbar stenosis with neurogenic claudication (ICD-10 - M48.062) Leonora Ocasio presents with back and hip pain [...] of life, surgical intervention is being considered. 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 Low back pain 2. Lumbar degenerative scoliosis 3. L2-S1 degenerative disc disease 4. 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 10/22/2024 Other Plan established by Dr. Sheth. [...] Treatment Pending Test Test Name Order Date Chest 2 views - 42971 12/17/2024 Lumbar spine, 4v flex ext - 02778 2024 CBC 12/17/2024 PT/PTT 12/17/2024 BMP 12/17/2024 Surgery Scheduling 12/23/2024 MRSA (Bilateral Nares) PCR 12/17/2024 EKG 12/17/2024 CT Myelogram - Lumbar Spine 10/22/2024 Next Appt Details Provider Name:Jae Doran Cl air, 12/31/2024 09:50:00 AM, [address] [place] [address], [phone], Provider Name:Jae Dooley [facility], 01/04/2025 12:30:00 PM, [address] [place], [place], [phone], Provider Name:Jae Doran Cl air, 02/17/2025 10:10:00 AM, [address] [place] [address], [phone], Insurance Providers Payer Name Payer Address Payer Phone Subscriber Number Group Number Insured Name Patient Relationship to Insured Coverage Start Date Coverage End Date Medicare A[employer] [address] [place] [address] [id number] EDUARDO LEA Self - patient is the insured 5 Medical (General) History Medical History History ICD Code Kidney stones - Degenerative scoliosis - Spinal arthritis with bone spurs Surgical History Surgery Date(Month/Year) Disc removed 08/14/1984 Bunionectomy 09/18/1995
--- OUTSIDE RECORDS SUMMARY | 2024-12-24 09:36 | XMS_ITS | CCD ---
Author Organization [facility] Care Team Providers Care Graduate Teacher Education Name Role Phone GISELA, DR SAVANNA Willis [...] Unavailable HIGGINS, DR SAVANNA Willis Attending Unavailable HAZEL, DR MINE Barriga Consulting Unavailable GISELA, DR SAVANNA Willis Admitting Unavailable HIGGINS, DR SAVANNA Willis Consulting Unavailable HIGGINS, DR SAVANNA Willis Attending Unavailable HIGGINS, DR SAVANNA Willis Admitting Unavailable BIRGIT, DR PB Mitchell Consulting Unavailable HIGGINS, DR SAVANNA Willis Primary Care Unavailable GISELA, DR SAVANNA Willis Consulting Unavailable HIGGINS, DR SAVANNA Willis Primary Care Unavailable LAKSHMIPATHY [...] Unavailable LAKSHMIPATHY ., NARENDRANATH Attending Jessy vailable LAKLALAMIERICY ., NARENDRANATH Admitting Jessy vailable LAKSHMIPATHY ., NARENDRANATH Consulting Jessy vailable Savanna Higgins Unavailable SAVANNA HIGGINS Primary Care Physician REBECA HOYT Attending Unavailable Valeriy Higgins MD Primary Care Provider [phone] Community, Outreach Admitting Unavailable Community, Outreach Attending Unavailable Savanna Higgins Primary Care Unavailable Vane SALGUERO, Dulce Cooper Attending Unavailable Vane SALGUERO, Dulce Cooper Attending Unavailable Roman ORTEGA Attending Unavailable Roman ORTEGA Attending Unavailable POONAM ADAIR Referring Unavailable POONAM ADAIR Admitting Unavailable POONAM ADAIR Attending Unavailable Medications Current Medications Medication Drug [...] take 1 tablet by mouth once daily atenolol 50 mg Tab 5 0 mg = 1 tab(s), Oral, Daily Start Date: 09/17/23 Status: Ordered Repeat number: 1 baclofen 10 mg oral tablet (2 sources) [...] 09/17/23 Status: Ordered Caltrate 600 with D (3 sources) Start: 02-19-2010 Caltrate 600 with D 1 tab(s), Oral, Daily, Refill(s) 0, Prophylaxis Start Date: 02/19/10 Status: Ordered Repeat number: 1 Start: 02-19-2010 Caltrate 600 w ith D 1 tab(s), Oral, Daily, Refill(s) 0, Prophylaxis Start Date: 02/19/10 Status: Ordered Osteo Bi-Flex (3 sources) Start: 09-17-2023 Osteo Bi-Flex Refill(s) 0 Start Date: 09/17/23 Status: Ordered Repeat number: 1 Start: 09-17-2023 Osteo Bi-Flex Refill(s) 0 Start [...] Four times a day Active Fish Oils (3 sources) Start: 02-19-2010 take 1 tablet by christian once daily [place]-3 Fish Oil 1 tab, Oral, Daily, Refill(s) 0, Prophylaxis Start Date: 02/19/10 Status: Ordered Repeat number: 1 Start: 02-19-2010 take 1 tablet by christian once daily [place]-3 Fish Oil 1 tab, Oral, Daily, Refill(s) 0, Prophylaxis Start Date: 02/19/10 Status: Ordered meclizine hydrochloride 25 m g oral tablet (9 sources) Antiemetic Start: 09-17-2023 meclizine 25 m g Tab 25 mg = 1 tab(s), Oral Start Date: 09/17/23 Status: Ordered take 1 tablet by christian every six hours as needed Meclizine HCl 25 MG 1 tablet orally ever y 6 hours prn for 30 days Active Misc Medication (1 source) Start: 02-28-2014 take 1 tablet by mouth once daily Misc Medication one tab, Oral, Daily Start Date: 02/28/14 Status: Ordered Multiple Vitamins oral capsule (3 sources) Start: 02-19-2010 take 1 capsule by mouth once daily Multiple Vitamins oral capsule 1 cap(s), Oral, Daily, Refill(s) 0, Prophylaxis Start Date: 02/19/10 Status: Ordered Repeat number: 1 Start: 02-19-2010 take 1 capsule by mo [facility] once daily Multiple Vitamins oral capsule 1 cap(s), Oral, Daily, Refill(s) 0, Prophylaxis Start Date: 02/19/10 Status: Ordered Multivitamin preparation (7 sources) Multivitamin Act marysol naproxen sodium 220 mg oral tablet (1 source) Nonsteroidal Anti-inflammatory Drug Start: 11-24-19 take 220 mg by mouth every twelve hours Aleve 220 mg, Oral, q12hr, Refills(s) 0 Start Date: 11/23/24 Status: Ordered Repeat number: 1 predniSONE 20 mg oral tablet (5 sources) Start: 01-11-20 23 take 2 tablets by mouth every twenty-four hours predniSONE 20 MG 2 tablets Orally Once a day for 5 days Jan, Active tamsulosin hydrochloride 0.4 mg oral capsule (2 sources) alpha-Adrenergic Tera Start: 09-17-19 End: 10-17-19 24 take 1 capsule by mouth once daily Flomax 0.4 mg Cap 0.4 mg = 1 cap(s), Oral, Daily, Stop taking if experiencing dizziness or lightheadedness., X 30 day(s), # 30 cap(s), Refills(s) 0, Pharmacy: [facility]/pharmacy #[id number], 56.1, kg, 09/17/23 8:03:00 EDT, Weight Dosing Start Date: 09/17/23 Stop Date: 10/17/23 Status: Ordered tiZANidine 4 mg oral tablet (16 sources) Central alpha-2 Adrenergic Agonist Start: 05-03-20 take 1 tablet by mouth once daily [...] Act marysol ZOLMitriptan 5 mg oral tablet (3 sources) Serotonin-1b and Serotonin-1d Receptor Agonist Start: 02-19-2010 take 1 tablet by mouth once as needed for headache Zomig 5 mg oral tablet = 1 tab(s), Oral, Once, PRN for migraine headache, # 10 tab(s), Refills(s) 0 Start Date: 02/19/10 Status: Ordered Quantity: 10.0 Unit: tab(s) Repeat number: 1 Completed/Discontinued Medications Medication Drug Class(es) Dates Sig (Normalized) Sig (Original) meloxicam 7.5 mg oral tablet (14 sources) Nonsteroidal Anti-inflammatory Drug Start: End: 4 take 1 tablet by mouth [...] oral capsule (15 sources) beta-Adrenergic Tera Start: End: 4 take 1 capsule by mouth [...] Documented Date Episodic/Chronic Calculus of urinary tract (19 sources) Ureteric stone; Translations: [Calculus of ureter] Onset: 09-17-2023 Episodic Cataract (4 sources) Cataract; 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 Conditions associated with dizziness or vertigo (3 sources) Meniere's disease 02-28-2014 Chronic Disorders of lipid metabolism (13 sources) Pure hypercholesterolemia; Translations: [Pure hypercholesterolemia, unspecified] Onset: 09-16-2013 02-28-2014 Chronic Essential hypertension (8 sources) Essential (primary) hypertension; Translations: [Essential hypertension] Onset: 11-09-2021 Chronic Headache; including migraine (3 sources) Migraine 02-28-2014 Chronic Immunizations and screening [...] Cervicalgia; Translations: [Lumbago] Onset: 09-05-2022 Episodic Unclassified (3 sources) tremors 1 02-28-2014 Comment on above: [...] Test Name Value Interpretation Reference Range Facility CT Spine Lumbar w/ Contrasto n 11-23-2024 CT Spine Lumbar w/ Contrast Exam Date/Time: 11/23/2024 10:14 EDT Reason for Exam: M54.50 M41.50 M51.362 Report IMPRESSION: Transitional lumbosacral anatomy as discussed. Degenerative changes lumbar spine as discussed. HISTORY: Back pain. TECHNIQUE: Routine CT myelogram of the lumbar spine with intrathecal contrast, without intravenous contrast. Sagittal and coronal reconstructions. All CT scans at this facility use dose modulation, iterative reconstruction, and/or weight based dosing when appropriate to reduce radiation dose to as low as reasonably achievable. Unless otherwise stated, incidental findings identified in this report do not require routine follow-up imaging. COMPARISON: CT 12/02/2023. RESULT: Counting reference: Lumbosacral junction. For the purposes of this report, there is transitional lumbosacral anatomy with tiny rib on the right at T12, 4 lumbar type vertebral bodies followed by transitional vertebral body which will be considered sacralized L5 for the purposes of this report. Alignment: Moderate levoscoliosis. Grade 1 anterolisthesis of L3 on L4 measuring around 6 mm. Bone marrow /fracture: No evidence for recent fracture. No destructive osseous lesions. Underlying decreased bone mineral density. Severe disc height loss at L1-L2 and L4-L5 with vacuum disc phenomenon. Paraspinal soft tissues: Cholelithiasis. Calcifications of the aorta, with tortuosity, without aneurysm. Small fat-containing periumbilical hernia. Sacrum and iliac wings: Degenerative changes SI joints. Lower thoracic spine: No significant canal or foraminal narrowing. T12-L1: Disc bulge. No significant canal or foraminal narrowing. L1-L2: Severe disc height loss. Disc bulge. Facet degenerative changes. Moderate to severe right foraminal narrowing, mild to moderate left foraminal narrowing, without significant canal narrowing. L2-L3: Disc bulge. Endplate osteophytes. Facet degenerative changes. Moderate right and mild to moderate left foraminal narrowing with mild canal narrowing. Report L3-L4: Anterolisthesis with disc uncovering. Disc bulge. Facet degenerative changes. Moderate canal narrowing, moderate to severe bilateral foraminal narrowing. L4-L5: Broad-based disc bulge. Endplate osteophytes. Facet degenerative changes. Moderate to severe bilateral foraminal narrowing with mild canal narrowing. L5-S1: Facet degenerative changes without significant canal or foraminal narrowing. Ordering Provider: POONAM ADAIR FINAL REPORT Dictated: 11/23/2024 2:21 pm Shay Schulte MD. Signed (Electronic Signature): 11/23/2024 2:21 pm Signed by: Shay Schulte MD Transcribed by: DIOGO Technologist: ASHUTOSH Yao [facility] XR Myelography Lumbosacralon 11-23-2024 XR Myelography Lumbosacral Exam Date/Time: 11/23/2024 10:07 EDT Reason for Exam: M54.50 M41.50 M51.362 Report IMPRESSION: Technically successful myelogram\X09\ PROCEDURE: XR Myelography Lumbosacral HISTORY: Back pain. Consent: The risks, benefits, treatment options, potential complications, equipment, and personnel to be involved were discussed (including the risks of radiation exposure, contrast and anesthesia administration) with the patient. All questions were answered and consent was obtained. The patient indicated willingness to proceed. General: The lower back was sterile prepped and draped. Time Out: A time out was performed immediately prior to procedure start with the team correctly identifying the name, medical record number, procedure, anatomy (including marking of site), patient position, procedure consent form, relevant diagnostic and radiology test results, safety precautions, and procedure-specific equipment needs. Anesthesia Type: administration of local anesthesia. Local Anesthesia: 1% Lidocaine TECHNIQUE/RESULT: Access Site: 22 gauge spinal needle from a right paramedian approach at the L2-L3 level. Counting reference: Lumbosacral junction. For the purposes of this report, L4-5 is considered the level of the iliac crest. Procedure Details: Using sterile procedure, local anesthesia was introduced to the skin and subcutaneous tissues as outlined above. Diagnostic Myelo Details: Under fluoroscopic guidance, the needle was carefully advanced into the lumbar subarachnoid space resulting in free flow of CSF. 10 ml of Isovue-300 Intrathecal contrast was administered. CSF Color: Clear Diagnostic Myelogram Results: Myelogram Type: Lumbar Primary Site Results: Free flow of contrast away from the needle. Secondary Site Results: Not Applicable. Estimated Blood Loss: 0 mls Type of Removed Specimens: None Number of Specimens: None Report Fluoroscopic Radiation Summary: Air Kerma (Ka,r): 10.3 mGy Post-Procedure: \X09\Conclusion: The patient was transferred to the Radiology Recovery Room in stable condition and observed for approximately 3 to 4 hours. Immediate Complications: None Tech Comments: Ka,r in mGy = 10.30 DAP = 233.14 Ordering Provider: POONAM ADAIR FINAL REPORT Dictated: 11/23/2024 11:44 am Shay Schulte MD Signed (Electronic Signature): 11/23/2024 11:44 am Signed by: Shay Schulte MD Transcribed by: DIOGO Technologist: GENO Yao [facility] Basophils Auto (Bld) [#/Vol] on 09-09-2023 Basophils (Bld) [#/Vol] 0.0 10 3/uL 0.0-0.1 [facility] Basophils/100 WBC Auto (Bld) on 09-09-2023 Basophils/100 WBC (Bld) 0.4 % 0.2-2.0 [facility] Casts typing in urine sedime nt by light microscopyon 09-09-2023 Casts LM Nom (Urine sed) NONE SEEN #/LPF NONE SEEN [facility] Eosinophils/100 WBC Auto (Bl d)on 09-09-2023 Eosinophils/100 WBC (Bld) 1.1 % 0.9-7.0 [facility] Erythrocyte distribution wid th Auto (RBC) [Ratio]on 09-09-2023 Erythrocyte distribution width (RBC) [Ratio] 13.0 % 11.0-15.0 [facility] Estimated glomerular filtrat ion rate (GFR) non- Americanon 09-09-2023 GFR/1.73 sq M.predicted among non-blacks MDRD (S/P/Bld) [Vol rate/Area] 52 mL/min/{1.73_m2} Low >=60 [facility] Globulin Calc (S) [Mass/Vol] on 09-09-2023 Globulin (S) [Mass/Vol] 3.5 g/dL [facility] Hematocrit Auto (Bld) [Volum e fraction]on 09-09-2023 Hematocrit (Bld) [Volume fraction] 39.0 % 36.0-48.0 [facility] Hemoglobin [Mass/volume] in Bloodon 09-09-2023 Hemoglobin (Bld) [Mass/Vol] 12.6 g/dL 12.0-16.0 [facility] Laboratory - Chemistry and C hemistry - challengeon 09-09-2023 Albumin [Mass/Vol] 3.6 g/dL 3.4-5.0 [facility] ALP [Catalytic activity/Vol] 74 U/L 46-116 [facility] ALT [Catalytic activity/Vol] 30 U/L 14-59 [facility] AST [Catalytic activity/Vol] 24 U/L 15-37 [facility] Bilirubin [Mass/Vol] 0.5 mg/dL 0.2-1.0 [facility] Calcium [Mass/Vol] 9.8 mg/dL 8.5-10.1 [facility] Chloride [Moles/Vol] 102 mmol/L 98-107 [facility] CO2 [Moles/Vol] 31.2 mmol/L 21.0-32.0 [facility] Creatinine [Mass/Vol] 1.01 mg/dL 0.55-1.02 [facility] GFR/1.73 sq M.predicted MDRD (S/P/Bld) [Vol rate/Area] mL/min/{1.73_m2} >=60 [facility] Glucose [Mass/Vol] 100 mg/dL 74-106 [facility] Lipase [Catalytic activity/Vol] 25.0 U/L 16.0-77.0 [facility] Potassium [Moles/Vol] 3.9 mmol/L 3.5-5.1 [facility] Protein [Mass/Vol] 7.1 g/dL 6.4-8.2 [facility] Sodium [Moles/Vol] 140 mmol/L 136-145 [facility] Urea nitrogen [Mass/Vol] 22.0 mg/dL High 7.0-18.0 [facility] Urea nitrogen/Creatinine [Mass ratio] 21.8 mg/mg [facility] Bilirubin Ql (U) Negative NEGATIVE [facility] Glucose (U) [Mass/Vol] Negative NEGATIVE [facility] Ketones Ql (U) Negative NEGATIVE [facility] pH (U) 6.0 [pH] 5.0-9.0 [facility] Specific gravity (U) [Rel density] 1.020 1.005-1.025 [facility] Urobilinogen Qn (U) 0.2 {Sosa'U}/dL 0.2-1.0 [facility] Laboratory - Hematology and Cell countson 09-09-2023 Immature granulocytes/100 WBC (Bld) 0.3 % 0.0-0.5 [facility] Laboratory - Specimen inform ationon 09-09-2023 Appearance (U) CLEAR CLEAR [facility] Color (U) DK. YELLOW YELLOW [facility] Laboratory - Urinalysison Amorphous sediment LM Ql (Urine sed) RARE [facility] Leukocyte esterase Test strip Ql (U) TRACE Abnormal NEGATIVE [facility] Nitrite Ql (U) Negative NEGATIVE [facility] Protein Ql (U) Negative NEG/TRACE [facility] Leukocytes [#/volume] correc bill for nucleated erythrocytes in Blood by Automated counon 09-09-2023 WBC corrected for nucl RBC Auto (Bld) [#/Vol] 10.7 10 3/uL 4.0-11.0 [facility] Lymphocytes Auto (Bld) [#/Vo l]on 09-09-2023 Lymphocytes (Bld) [#/Vol] 1.5 10 3/uL 1.2-3.8 [facility] Lymphocytes/100 WBC Auto (Bl d)on 09-09-2023 Lymphocytes/100 WBC (Bld) 13.7 % Low 20.5-60.0 [facility] MCH Auto (RBC) [Entitic mass ]on 09-09-2023 MCH (RBC) [Entitic mass] 31.2 pg 26.7-34.0 [facility] MCHC Auto (RBC) [Mass/Vol]on 09-09-2023 MCHC (RBC) [Mass/Vol] 32.3 g/dL 29.9-35.2 [facility] MCV Auto (RBC) [Entitic vol] on 09-09-2023 MCV (RBC) [Entitic vol] 96.5 fL 81.0-99.0 [facility] Monocytes Auto (Bld) [#/Vol] on 09-09-2023 Monocytes (Bld) [#/Vol] 1.0 10 3/uL High 0.3-0.8 [facility] Monocytes/100 WBC Auto (Bld) on 09-09-2023 Monocytes/100 WBC (Bld) 9.5 % 1.7-12.0 [facility] Mucus LM Ql (Urine sed)on Mucus Ql (Urine sed) NONE SEEN NONE SEEN [facility] Neutrophils Auto (Bld) [#/Vo l]on 09-09-2023 Neutrophils (Bld) [#/Vol] 8.0 10 3/uL High 1.4-6.5 [facility] Neutrophils/100 WBC Auto (Bl d)on 09-09-2023 Neutrophils/100 WBC (Bld) 75.0 % 43.0-75.0 [facility] No Panel Informationon 09-08 Eosinophils # (Auto) 0.1 10 3/uL 0.0-0.7 Fir [facility] Immature Granulocyte # (Auto) 0.03 10 3/uL 0.00-0.03 [facility] Urine Bacteria NONE SEEN #/HPF NONE SEEN [facility] Urine Culture Reflexed NO [facility] Urine Microscopic Review YES [facility] Urine Occult Blood LARGE Abnormal NEGATIVE [facility] Urine Other Crystals Seen #/HPF Abnormal None Seen [facility] Urine RBC 10-20 #/HPF Abnormal 0-2 [facility] Urine Squamous Epithelial Cells NONE SEEN #/LPF NONE/RARE [facility] Urine Uric Acid Crystals FEW [facility] Urine WBC 2-5 #/HPF Abnormal NONE SEEN [facility] Platelet mean volume Auto (B ld) [Entitic vol]on 09-09-2023 Platelet mean volume (Bld) [Entitic vol] 9.5 fL 9.5-13.5 [facility] Platelets Auto (Bld) [#/Vol] on 09-09-2023 Platelets (Bld) [#/Vol] 240 10 3/uL 150-450 [facility] RBC Auto (Bld) [#/Vol]on RBC (Bld) [#/Vol] 4.04 10 6/uL Low 4.20-5.40 [facility] Serum or plasma albumin/glob ulin mass ratioon 09-09-2023 Albumin/Globulin [Mass ratio] 1.0 {ratio} [facility] Serum or plasma anion gap de terminationon 09-09-2023 Anion gap [Moles/Vol] 10.7 mmol/L [facility] XR RIBS LT PA [...] PB GENAO Date: 2022-10-02 11:51 Normal [facility] XR CSPINE 2_3 VIEWSon 2022 XR CSPINE [...] ISAEL GRIFFIN Date: 2022-09-05 15:58 Normal [facility] CBC AUTO DIFFon 12-31-2021 BASO # 0.0 103/ul Normal 0.0-0.1 [facility] Comment on above: Performed By: #### C BC #### [facility] [address] [place] [address] Dr. Radha Land Basophils/100 WBC (Bld) 0.2 % Normal 0.2-2.0 [facility] Comment on above: Performed By: #### C BC #### [facility] [address] [address] [address] Radha Land EO # 0.2 103/ul Normal 0.0-0.7 [facility] Comment on above: Performed By: #### C BC #### [facility] [address] [address] [address] Radha Land Eosinophils/100 WBC (Bld) 1.7 % Normal 0.9-7.0 [facility] Comment on above: Performed By: #### C BC #### [facility] [address] [place] [place] [address] Dr. Radha Land Erythrocyte distribution width (RBC) [Ratio] 13.4 % Normal 11.0-15.0 [facility] Comment on above: Performed By: #### C BC #### [facility] [address] [place] [place] [address] Dr. Radha Land Hematocrit (Bld) [Volume fraction] 40.9 % Normal 36.0-48.0 [facility] Comment on above: Performed By: #### C BC #### [facility] [address] [place] [place] [address] Dr. Radha Land Hemoglobin (Bld) [Mass/Vol] 13.1 g/dL Normal 12.0-16.0 [facility] Comment on above: Performed By: #### C BC #### [facility] [address] [place] [place] [address] Dr. Radha Land IG # 0.05 10e3/ul Critically high 0.00-0.03 [facility] Comment on above: Performed By: #### C BC #### [facility] [address] [place] [place] [address] Dr. Radha Land IG % 0.4 % Normal 0.0-0.5 [facility] Comment on above: Performed By: #### C BC #### [facility] [address] [place] [address] Dr. Radha Land LYMPH # 1.4 103/ul Normal 1.2-3.8 [facility] Comment on above: Performed By: #### C BC #### [facility] [address] [place] [address] Dr. Radha Land Lymphocytes/100 WBC (Bld) 10.8 % Critically low 20.5-60.0 [facility] Comment on above: Performed By: #### C BC #### [facility] [address] [place] [address] Dr. Radha Land MANUAL DIFF REQ NO Normal [facility] Comment on above: Performed By: #### C BC #### [facility] [address] [address] [address] Radha Land MCH (RBC) [Entitic mass] 31.5 pg Normal 26.7-34.0 [facility] Comment on above: Performed By: #### C BC #### [facility] [address] [address] [address] Radha Land MCHC (RBC) [Mass/Vol] 32.0 g/dL Normal 29.9-35.2 [facility] Comment on above: Performed By: #### C BC #### [facility] [address] [address] [address] Radha Land MCV (RBC) [Entitic vol] 98.3 fL Normal 81.0-99.0 [facility] Comment on above: Performed By: #### C BC #### [facility] [address] [place] [address] Dr. Radha Land MONO # 1.3 103/ul Critically high 0.3-0.8 [facility] Comment on above: Performed By: #### C BC #### [facility] [address] [place] [address] Dr. Radha Land Monocytes/100 WBC (Bld) 9.7 % Normal 1.7-12.0 [facility] Comment on above: Performed By: #### C BC #### [facility] [address] [address] [address] Radha Land NEUT # 10.2 103/ul Critically high 1.4-6.5 [facility] Comment on above: Performed By: #### C BC #### [facility] [address] [address] [address] Radha Land Neutrophils/100 WBC (Bld) 77.2 % Critically high 43.0-75.0 [facility] Comment on above: Performed By: #### C BC #### [facility] [address] [place] [address] Dr. Radha Land Platelet mean volume (Bld) [Entitic vol] 9.7 fL Normal 9.5-13.5 [facility] Comment on above: Performed By: #### C BC #### [facility] [address] [address] [address] Radha Land PLT 235 103/ul Normal 150-450 [facility] Comment on above: Performed By: #### C BC #### [facility] [address] [address] [address] Radha Land RBC 4.16 106/ul Critically low 4.20-5.40 [facility] Comment on above: Performed By: #### C BC #### [facility] [address] [address] [address] Radha Land WBC 13.2 103/ul Critically high 4.0-11.0 [facility] Comment on above: Performed By: #### C BC #### [facility] [address] [place] [address] Dr. Radha Land SED RATE WESTERGRENon 2021 SED RATE 35 mm/hr Critically high <=30 [facility] Comment on above: Performed By: #### S EDR #### [facility] [address] [place] [address] Dr. Radha Land CBC AUTO DIFFon 11-07-2021 BASO # 0.0 103/ul Normal 0.0-0.1 [facility] Comment on above: Performed By: #### C BC ####[facility] [id number] [address] Basophils/100 WBC (Bld) 0.3 % Normal 0.2-2.0 [facility] Comment on above: Performed By: #### C BC ####[facility] [id number] [place] [address]Dr. Radha Land EO # 0.2 103/ul Normal 0.0-0.7 [facility] Comment on above: Performed By: #### C BC ####[facility] [id number] [place] [address]DrHernandez Land Eosinophils/100 WBC (Bld) 3.3 % Normal 0.9-7.0 [facility] Comment on above: Performed By: #### C BC ####[facility] [id number] [place] [address]Dr. Radha Land Erythrocyte distribution width (RBC) [Ratio] 13.2 % Normal 11.0-15.0 [facility] Comment on above: Performed By: #### C BC ####[facility] [address]jrnvmf[address] [place] [address]Dr. Radha Land Hematocrit (Bld) [Volume fraction] 41.9 % Normal 36.0-48.0 [facility] Comment on above: Performed By: #### C BC ####[facility] [id number] [place], [place] [address]Dr. Radha Land Hemoglobin (Bld) [Mass/Vol] 13.4 g/dL Normal 12.0-16.0 [facility] Comment on above: Performed By: #### C BC ####[facility] U[address] [place], [place] [address]Dr. Radha Land IG # 0.01 10e3/ul Normal 0.00-0.03 [facility] Comment on above: Performed By: #### C BC ####[facility] [id number] [place], [place] [address]Dr. Radha Land IG % 0.2 % Normal 0.0-0.5 [facility] Comment on above: Performed By: #### C BC ####[facility] H[address] [place], [place] [address]Dr. Radha Land LYMPH # 1.6 103/ul Normal 1.2-3.8 [facility] Comment on above: Performed By: #### C BC ####[facility] Eneqoskovp[address] [place], [place] [address]Dr. Radha Land Lymphocytes/100 WBC (Bld) 27.5 % Normal 20.5-60.0 [facility] Comment on above: Performed By: #### C BC ####[facility] Caknrbmrry[address] [place], [place] [address]Dr. Radha Land MANUAL DIFF REQ NO Normal [facility] Comment on above: Performed By: #### C BC ####[facility] [address]ks[address] [place] [id number]. Radha Land MCH (RBC) [Entitic mass] 31.2 pg Normal 26.7-34.0 [facility] Comment on above: Performed By: #### C BC ####[facility] Rionfaqffv[address] [place] [address]Dr. Radha Land MCHC (RBC) [Mass/Vol] 32.0 g/dL Normal 29.9-35.2 [facility] Comment on above: Performed By: #### C BC ####[facility] Svtzgfnunk[address] [place] [address]Dr. Radha Emery MCV (RBC) [Entitic vol] 97.7 fL Normal 81.0-99.0 [facility] Comment on above: Performed By: #### C BC ####[facility] Y[address]ix[address] [place], [place] [address]Dr. Radha Emery MONO # 0.7 103/ul Normal 0.3-0.8 [facility] Comment on above: Performed By: #### C BC ####[facility] [id number] [place], [place] [address]Dr. Radha Emery Monocytes/100 WBC (Bld) 12.4 % Critically high 1.7-12.0 [facility] Comment on above: Performed By: #### C BC ####[facility] Y[address]wr[address] [place], [place] [address]Dr. Radha Emery NEUT # 3.2 103/ul Normal 1.4-6.5 [facility] Comment on above: Performed By: #### C BC ####[facility] [address] [place], [place] [address]DrHernandez Jacquelyncharlotte Land Neutrophils/100 WBC (Bld) 56.3 % Normal 43.0-75.0 [facility] Comment on above: Performed By: #### C BC ####[facility] H[address] [place], [place] [address]DrHernandez Jacquelyncharlotte Land Platelet mean volume (Bld) [Entitic vol] 9.4 fL Critically low 9.5-13.5 [facility] Comment on above: Performed By: #### C BC ####[facility] Ns[address]razsbm4[address] [place], [place] [address]Yg. Radha Land PLT 226 103/ul Normal 150-450 [facility] Comment on above: Performed By: #### C BC ####[facility] Zjbvvistsl3593 [place], [place] [address]Gp. Jacquelyncharlotte Land RBC 4.29 106/ul Normal 4.20-5.40 [facility] Comment on above: Performed By: #### C BC ####[facility] Fmcmhbogla87[address] [place], [place] [address]Ao. Radha Emery WBC 5.7 103/ul Normal 4.0-11.0 [facility] Comment on above: Performed By: #### C BC ####[facility] [address] [place], [place] [address]IzHernandez Land LIPID PROFILEon 11-07-2021 CHOL-HDL RATIO NORM SEE BELOW Normal [facility] Comment on above: Result Comment: 3.3 - 4.4 LOW RISK 4.4 - 7.1 AVERAGE RISK 7.1 - 11.0 MODERATE RISK >11.0 HIGH RISK Performed By: #### L IPID, CMP #### [facility] Laboratory [address] [place] [address] [address] Radha Land Cholesterol [Mass/Vol] 257 mg/dL Critically high <=200 [facility] Comment on above: Performed By: #### L IPID, CMP #### [facility] Laboratory [address] [place] [address] [address] Radha Land Cholesterol in HDL [Mass/Vol] 76 mg/dL Critically high 40-60 [facility] Comment on above: Performed By: #### L IPID, CMP #### [facility] Laboratory [address] [address] [address] Radha Land Cholesterol in LDL [Mass/Vol] 163.8 mg/dL Normal [facility] Comment on above: Performed By: #### L IPID, CMP #### [facility] Laboratory [address] [place] [address] [address] Radha Land Cholesterol.total/Cho lesterol in HDL [Mass ratio] 3.4 {ratio} Normal [facility] Comment on above: Performed By: #### L IPID, CMP #### [facility] Laboratory [address] [place] [address] [address] Radha Land HDL NORMAL > or = 60 mg/dl - LOW CARDIOVASCULAR RISK <40 mg/dl - HIGH CARDIOVASCULAR RISK Normal [facility] Comment on above: Performed By: #### L IPID, CMP #### [facility] Laboratory [address] [place] [address] [address] Radha Land LDL CALC NORMAL SEE BELOW Normal [facility] Comment on above: Result Comment: <100 mg/dl OPTIMAL 100 - 129 mg/dl NEAR OR ABOVE OPTIMAL 130 - 159 mg/dl BORDERLINE HIGH 160 - 189 mg/dl HIGH >190 mg/dl VERY HIGH Performed By: #### L IPID, CMP #### [facility] [address] [address] [address] Radha Land Triglyceride [Mass/Vol] 86 mg/dL Normal <=150 [facility] Comment on above: Performed By: #### L IPID, CMP #### [facility] [address] [address] [address] Radha Land VLDL CALC 17.2 mg/dL Normal [facility] Comment on above: Performed By: #### L IPID, CMP #### [facility] [address] [address] [address] Radha Land MG MAMM SCREEN 3D GIANCARLO CADon 11-07-2021 MG MAMM SCREEN 3D GIANCARLO CAD Patient: EDUARDO LEA Exam Date: 11/07/2021 : 1940 Gender:F Ordering : DR SAVANNA HIGGINS M.D. Admission #: [id number] Family : Order #: [id number] CLICK HERE TO VIEW EXAM RADIOLOGY REPORT [...] ovarian cancer at age 47. LOCATION: [facility] BREAST COMPOSITION: Extremely dense, which lowers the [...] MD on 11/07/2021 at 11:21 Normal [facility] PROF 14(COMP METB)on 022 Albumin [Mass/Vol] 3.6 g/dL Normal 3.4-5.0 [facility] Comment on above: Performed By: #### L IPID, CMP #### [facility] Laboratory [address] [place] [address] Dr. Radha Land Albumin/Globulin [Mass ratio] 0.9 {ratio} Normal [facility] Comment on above: Performed By: #### L IPID, CMP #### [facility] [address] [place] [address] Dr. Radha Land ALP [Catalytic activity/Vol] 79 U/L Normal 46-116 [facility] Comment on above: Performed By: #### L IPID, CMP #### [facility] [address] [place] [place] [address] Dr. Radha Land ALT [Catalytic activity/Vol] 32 U/L Normal 14-59 [facility] Comment on above: Performed By: #### L IPID, CMP #### [facility] [address] [place] [address] Dr. Radha Land Anion gap [Moles/Vol] 6.1 mmol/L Normal [facility] Comment on above: Performed By: #### L IPID, CMP #### [facility] [address] [place] [address] Dr. Radha Land AST [Catalytic activity/Vol] 28 U/L Normal 15-37 [facility] Comment on above: Performed By: #### L IPID, CMP #### [facility] [address] [place] [address] Dr. Radha Land Bilirubin [Mass/Vol] 0.6 mg/dL Normal 0.2-1.0 [facility] Comment on above: Performed By: #### L IPID, CMP #### [facility] [address] [place] [address] Dr. Radha Land Calcium [Mass/Vol] 9.1 mg/dL Normal 8.5-10.1 [facility] Comment on above: Performed By: #### L IPID, CMP #### [facility] [address] [place] [address] Dr. Radha Land Chloride [Moles/Vol] 104 mmol/L Normal 98-107 [facility] Comment on above: Performed By: #### L IPID, CMP #### [facility] Laboratory [address] [place] [address] Dr. Radha Land CO2 [Moles/Vol] 31.0 mmol/L Normal 21.0-32.0 [facility] Comment on above: Performed By: #### L IPID, CMP #### [facility] [address] [place] [address] Dr. Radha Land Creatinine [Mass/Vol] 0.86 mg/dL Normal 0.55-1.02 [facility] Comment on above: Performed By: #### L IPID, CMP #### [facility] Laboratory [address] [place] [address] Dr. Radha Land EGFR-AF ENGLISH >60 Normal >=60 [facility] Comment on above: Performed By: #### L IPID, CMP #### [facility] [address] [place] [place] [address] Dr. Radha Land EGFR-NON AF ENGLISH >60 Normal >=60 [facility] Comment on above: Performed By: #### L IPID, CMP #### [facility] [address] [place] [address] Dr. Radha Land Globulin (S) [Mass/Vol] 4.1 g/dL Normal [facility] Comment on above: Performed By: #### L IPID, CMP #### [facility] [address] [place] [address] Dr. Radha Land Glucose [Mass/Vol] 89 mg/dL Normal 74-106 [facility] Comment on above: Performed By: #### L IPID, CMP #### [facility] [address] [place] [address] Dr. Radha Land Potassium [Moles/Vol] 4.1 mmol/L Normal 3.5-5.1 [facility] Comment on above: Performed By: #### L IPID, CMP #### [facility] [address] [place] [address] Dr. Radha Land Protein [Mass/Vol] 7.7 g/dL Normal 6.4-8.2 [facility] Comment on above: Performed By: #### L IPID, CMP #### [facility] [address] [place] [address] Dr. Radha Land Sodium [Moles/Vol] 137 mmol/L Normal 136-145 [facility] Comment on above: Performed By: #### L IPID, CMP #### [facility] [address] [place] [address] Dr. Radha Land Urea nitrogen [Mass/Vol] 12.0 mg/dL Normal 7.0-18.0 [facility] Comment on above: Performed By: #### L IPID, CMP #### [facility] [address] [place] [address] Dr. Radha Land Urea nitrogen/Creatinine [Mass ratio] 14.0 mg/mg Normal [facility] Comment on above: Performed By: #### L IPID, CMP #### [facility] [address] [place] [address] Dr. Radha Land Vital Signs Date Time Vital Sign Value Performing Clinician Facility 10-14-2024 09:57-0400 Body height 165.1 cm [facility] 10-14-2024 09:57-0400 Body mass index (BMI) [Ratio] 20.3 kg/m2 [facility] 10-14-2024 09:57-0400 Body weight 55.56 kg [facility] 10-14-2024 09:57-0400 Diastolic blood pressure 81 mm[Hg] [facility] 10-14-2024 09:57-0400 Heart rate 84 /min [facility] 10-14-2024 09:57-0400 Systolic blood pressure 160 mm[Hg] [facility] 09-15-2024 08:18-0400 Body weight 55.1 kg [facility] 09-15-2024 08:18-0400 Diastolic blood pressure 71 mm[Hg] [facility] 09-15-2024 08:18-0400 Systolic blood pressure 109 mm[Hg] [facility] 11-18-2023 10:53-0400 Body height 165.1 cm [facility] 11-18-2023 10:53-0400 Body mass index (BMI) [Ratio] 20.5 kg/m2 [facility] 11-18-2023 10:53-0400 Body weight 55.79 kg [facility] 11-18-2023 10:53-0400 Diastolic blood pressure 55 mm[Hg] [facility] 11-18-2023 10:53-0400 Heart rate 65 /min [facility] 11-18-2023 10:53-0400 Systolic blood pressure 132 mm[Hg] [facility] 11-06-2023 11:11-0400 Body height 165.1 cm [facility] 11-06-2023 11:11-0400 Body mass index (BMI) [Ratio] 20.2 kg/m2 [facility] 11-06-2023 11:11-0400 Body weight 55.33 kg [facility] 11-06-2023 11:11-0400 Diastolic blood pressure 67 mm[Hg] [facility] 11-06-2023 11:11-0400 Heart rate 61 /min [facility] 11-06-2023 11:11-0400 Systolic blood pressure 124 mm[Hg] [facility] 10-13-2023 12:31-0400 Blood Pressure Location Romanarminda ORTEGA [facility] 10-13-2023 12:31-0400 Diastolic blood pressure 78 mm[Hg] Roman ORTEGA [facility] 10-13-2023 12:31-0400 Heart rate 80 /min Roman ORTEGA [facility] 10-13-2023 12:31-0400 Respiratory rate 16 /min Roman ORTEGA [facility] 10-13-2023 12:31-0400 Systolic blood pressure 134 mm[Hg] Roman ORTEGA [facility] 09-30-2023 14:31-0400 Body height 165.1 cm [facility] 09-30-2023 14:31-0400 Body mass index (BMI) [Ratio] 20.5 kg/m2 [facility] 09-30-2023 14:31-0400 Body weight 55.79 kg [facility] 09-30-2023 14:31-0400 Diastolic blood pressure 62 mm[Hg] [facility] 09-30-2023 14:31-0400 Heart rate 64 /min [facility] 09-30-2023 14:31-0400 Systolic blood pressure 104 mm[Hg] [facility] 09-17-2023 08:00-0400 Blood Pressure Location Romanarminda ORTEGA [facility] 09-17-2023 08:00-0400 Diastolic blood pressure 80 mm[Hg] Roman ORTEGA [facility] 09-17-2023 08:00-0400 Heart rate 64 /min Roman ORTEGA [facility] 09-17-2023 08:00-0400 Systolic blood pressure 132 mm[Hg] Roman ORTEGA [facility] 01-10-2023 09:45-0400 Body height 165.1 cm Savanna Higgins Other [facility] Other 01-10-2023 09:45-0400 Body mass index (BMI) [Ratio] 20.87 kg/m2 Savanna Higgins Other [facility] Other 01-10-2023 09:45-0400 Body weight 56.88 kg Savanna Higgins Other [facility] Other 01-10-2023 09:45-0400 Diastolic blood pressure 78 mm[Hg] Savanna Higgins Other [facility] Other 01-10-2023 09:45-0400 Systolic blood pressure 142 mm[Hg] Savanna Higgins Other [facility] Other 10-28-2022 08:30-0400 Body height 165.1 cm Savanna Higgins Other [facility] Other 10-28-2022 08:30-0400 Body mass index (BMI) [Ratio] 20.47 kg/m2 Savanna Higgins Other [facility] Other 10-28-2022 08:30-0400 Body weight 55.79 kg Savanna Higgins Other [facility] Other 10-28-2022 08:30-0400 Diastolic blood pressure 47 mm[Hg] Savanna Higgins Other [facility] Other 10-28-2022 08:30-0400 Systolic blood pressure 124 mm[Hg] Savanna Higgins Other [facility] MD.Voice Other Encounters Encounter Date Encounter Type Care Provider Facility Start: 01-28-2025 ambulatory Roman R SHANNON Hearni ty:[facility] Start: 11-29-2024 End: 11-29-2024 ambulatory Romanarminda ORTEGA Facility:[facility] Start: 11-29-2024 End: 11-29-2024 Patient encounter procedure Roman ORTEGA [facility] Start: 11-23-2024 End: 11-23-2024 ambulatory POONAM ADAIR Facility:[facility] Start: 11-01-2024 End: 11-01-2024 ambulatory Dulce Cifuentes MD Facility:[facility] Start: 10-14-2024 End: 10-14-2024 ambulatory [facility] Work Phone: Start: 10-14-2024 End: 10-14-2024 Patient encounter procedure [facility] Work Phone: Start: 09-15-2024 End: 09-15-2024 ambulatory [facility] Work Phone: Start: 09-15-2024 End: 09-15-2024 Patient encounter procedure [facility] Work Phone: Start: 08-18-2024 End: 08-18-2024 ambulatory [facility] Work Phone: Start: 08-18-2024 End: 08-18-2024 Patient encounter procedure [facility] Work Phone: Start: 03-16-2024 End: 03-16-2024 ambulatory [facility] Work Phone: Start: 03-16-2024 End: 03-16-2024 Patient encounter procedure [facility] Work Phone: Start: 02-02-2024 End: 02-02-2024 ambulatory Dulce Cifuentes MD Facility:[facility] Start: 01-05-2024 End: 01-05-2024 Bamyaritza Hoyt MD Work Phone: [facility] Start: 01-05-2024 End: 01-05-2024 Boogie Hoyt MD Work Phone: [facility] Start: 01-05-2024 End: 01-05-2024 ambulatory REBECA HOYT Not Available Start: 12-09-2023 End: 12-09-2023 ambulatory [facility] Work Phone: Start: 12-09-2023 End: 12-09-2023 Patient encounter procedure [facility] Work Phone: Start: 11-18-2023 End: 11-18-2023 ambulatory [facility] Work Phone: Start: 11-18-2023 End: 11-18-2023 Patient encounter procedure [facility] Work Phone: Start: 11-10-2023 Patient encounter procedure [facility] Start: 11-06-2023 End: 11-06-2023 Patient encounter procedure [facility] Work Phone: Start: 10-13-2023 End: 10-13-2023 Patient encounter procedure Roman ORTEGA [facility] Start: 09-30-2023 End: 09-30-2023 ambulatory [facility] Work Phone: Start: 09-30-2023 End: 09-30-2023 [facility] Start: 09-17-2023 End: 09-17-2023 Patient encounter procedure Roman ORTEGA [facility] Start: 09-09-2023 Non-patient / Non-visit [facility] Work Phone: Start: 08-26-2023 End: 08-26-2023 ambulatory [facility] Work Phone: Start: 08-26-2023 End: 08-26-2023 Patient encounter procedure [facility] Work Phone: Start: 03-28-2023 End: 03-28-2023 ambulatory Savanna Higgins Other [facility] Other Start: 03-28-2023 Telephone encounter Savanna Gisela [facility] Start: 01-31-2023 End: 01-31-2023 ambulatory Savanna Higgins Other [facility] Other Start: 01-31-2023 Nursing evaluation o f patient and report Savanna Gisela [facility] Start: 01-14-2023 End: 01-14-2023 ambulatory Savanna Higgins Other [facility] Other Start: 01-14-2023 Telephone encounter Savanna Gisela [facility] Start: 01-10-2023 End: 01-10-2023 ambulatory Savanna Higgins Other [facility] Other Start: 01-10-2023 Office outpatient visit 15 minutes Savanna Gisela [facility] Start: 10-28-2022 End: 10-28-2022 ambulatory Savanna Higgins Other [facility] Other Start: 10-28-2022 Patient encounter procedure Savanna Higgins [facility] Start: 10-24-2022 End: 10-24-2022 ambulatory Savanna Higgins Other [facility] Other Start: 10-24-2022 Telephone encounter Savanna Higgins [facility] Start: 10-08-2022 End: 10-08-2022 ambulatory AJ [...] 12-31-2021 Adult health examination Savanna Higgins Other [facility] Other Start: 12-31-2021 End: 01-01-[address] SAVANNA HIGGINS Facility:[facility] Start: 12-25-2021 End: 12-26-[address] VALENTINA BECKER . Facility:[facility] Start: 12-19-2021 End: 12-20-[address] VALENTINA BECKER . Facility:[facility] Start: 11-07-2021 End: 11-08-[address] SAVANNA HIGGINS Facility:[facility] Start: 03-01-2017 End: 03-01-2017 ambulatory [facility] Facility:[facility] Procedures Date Procedure Procedure Detail Performing Clinician Start: 11-23-2024 Myelogram Roman PONCE Start: 01-05-2024 End: 01-05-2024 [facility] medical xm&eval [...] Activity Detail Author Start: 10-14-2024 Patient referral [facility] Work Phone: Start: 09-15-2024 Patient referral [facility] Work Phone: Start: 01-11-2024 Influenza vaccination Influenza Vacc ine (#1) [facility] Start: 01-05-2024 End: 01-05-2024 Patient encounter procedure 01/05/2024 2:00 PM EDT Office Visit [facility] [address] [place] [address] Rebeca Hoyt MD [address] [place] [address] Arrived [facility] Comment on above: Arrived Start: 03-10-2019 Pneumococcal Vaccine : 65+ Years (2 of 2 - PPSV23 or PCV20) Pneumococcal Vaccine: 65+ Years (2 of 2 - PPSV23 or PCV20) [facility] Diagnostic radiograp hy of abdomen [facility] MG Breast - bilatera l Screening [facility] Patient Education Low back pain in adults [facility] Work Phone: Patient referral [facility] Work Phone: [facility] Immunizations Immunization Date Immunization Notes Care Provider Fa cility 03-16-2024 influenza, high dose seasonal, preservative-free [facility] 02-14-2023 influenza virus vaccine, unspecified formulation Roman ORTEGA [facility] 03-12-2022 SARS-CoV-2 (COVID-19 ) [id number] Roman ORTEGA [facility] Comment on above: Result Comment: 2023: [id number] 02-28-2022 influenza virus vaccine, split virus (incl. purified surface antigen) Savanna Higgins Other [facility] Other 02-28-2022 influenza virus vaccine, unspecified formulation [facility] 11-09-2021 SARS-CoV-2 (COVID-19 ) [id number] vaccine Roman ORTEGA [facility] Comment on above: Result Comment: 2023: [id number] 03-08-2021 SARS-CoV-2 (COVID-19 ) mRNA-1273 vaccine Roman ORTEGA [facility] 02-27-2021 influenza virus vaccine, split virus (incl. purified surface antigen) Savanna Higgins Other [facility] Other 02-27-2021 influenza virus vaccine, unspecified formulation [facility] 06-29-2020 SARS-CoV-2 (COVID-19 ) mRNA-1273 vaccine Roman ORTEGA [facility] 06-01-2020 SARS-CoV-2 (COVID-19 ) mRNA-1273 vaccine Roman ORTEGA [facility] 03-14-2020 zoster vaccine recombinant Roman ORTEGA [facility] 02-16-2020 influenza virus vaccine, split virus (incl. purified surface antigen) Savanna Higgins Other [facility] MD.Voice Other 02-16-2020 influenza virus vaccine, unspecified formulation [facility] 10-25-2019 pneumococcal polysaccharide vaccine, 23 valent Savanna Higgins Other [facility] 01-25-2019 influenza virus vaccine, unspecified formulation Roman ORTEGA [facility] 03-10-2018 pneumococcal conjuga te vaccine, 13 valent Savanna Higgins Other [facility] 02-14-2018 influenza virus vaccine, unspecified formulation Roman ORTEGA [facility] 01-08-2017 influenza virus vaccine, split virus (incl. purified surface antigen) Savanna Higgins Other [facility] Other 01-08-2017 influenza virus vaccine, unspecified formulation [facility] 02-06-2016 influenza virus vaccine, split virus (incl. purified surface antigen) Savanna Higgins Other [facility] Other 02-06-2016 influenza virus vaccine, unspecified formulation [facility] 03-24-2015 influenza virus vaccine, split virus (incl. purified surface antigen) Savanna Higgins Other [facility] MD[facility]Voice Other 03-24-2015 influenza virus vaccine, unspecified formulation [facility] 02-26-2013 tetanus and diphther ia toxoids, adsorbed, preservative free, for adult use (5 Lf of tetanus toxoid and 2 Lf of diphtheria toxoid) Savanna Higgins Other [facility] Payers Date Payer Category Payer Private Health Insurance [id number] 2024 Private Health Insurance 2022 Medicare [id number] 2017 Self-pay 1959 Medicare [id number] 1940 Unknown [id number] 2.16.84 0.1.896238.3.579.2.593 1940 Unknown [id number] 2.16.84 0.1.933661.3.579.2.593 1940 Unknown [id number] 2.16.84 0.1.024488.3.579.2.593 1940 Unknown [id number] 2.16.84 0.1.642270.3.579.2.593 1940 Unknown [id number] 2.16.84 0.1.296748.3.579.2.593 1939 Unknown [id number] 2.16.84 0.1.507701.3.579.2.593 1939 Unknown [id number] 2.16.84 0.1.954770.3.579.2.593 1939 Unknown [id number] 2.16.84 0.1.035656.3.579.2.593 1939 Unknown [id number] 2.16.84 0.1.966648.3.579.2.593 1939 Unknown [id number] 2.16.84 0.1.064089.3.579.2.593 1939 Unknown [id number] 2.16.84 0.1.564465.3.579.2.593 1939 Unknown [id number] 2.16.84 0.1.040615.3.579.2.593 1939 Unknown [id number] 2.16.84 0.1.436660.3.579.2.1259 1939 Unknown [id number] 2.16. 840.1.259401.3.579.2.196 1939 Unknown [id number] 2.16. 840.1.555088.3.579.2.196 1940 Unknown [id number] 2.16.8 40.1.120254.3.579.2.727 1940 Unknown [id number] 2.16.8 40.1.504804.3.579.2.727 1940 Unknown [id number] 2.16.8 40.1.380849.3.579.2.727 Private Health Insurance [id number] 2.16.840.1.101440.19 Unknown [id number] 2.16.8 40.1.112032.3.579.2.531 Social History Date Type Detail Facility Unknown if ever smoked [facility] Other Sex Assigned At [facility] Start: 1940 Sex Assigned At Female F [facility] Start: 09-17-2023 End: 10-13-2023 Tobacco smoking status Never smoked tobacco (finding) [facility] Tobacco smoking status Never [facility] Start: 1940 Sex assigned at Not [facility] file [facility] Tobacco smoking stat [facility] Unknown if ever smoked [facility] Work Phone: Start: 12-21-2009 End: 08-18-2024 Sex Female (finding) [facility] Sexual Orientation [facility] Functional Status Date Assessment Result Facility 10-13-2023 Functional Status N/A [facility] 09-17-2023 Functional Status N/A [facility] Clinical Notes 12-19-2021 to 08-18-2024 Note Date & Type Note Facility 08-18-2024 Evaluation note Diagnosis Onset Date Resolution Seasonal allergic rhinitis acute August 18, 2024 11:44am [facility] Work Phone: 1(277) 280-745704-09-2025 Evaluation note* Diagnosis Onset Date Resolution Status Admit Date Seasonal allergic rhinitis acute August 18, 2024 11:44am Lumbar back pain acute September 15, 2024 8:13am Lumbar back pain acute October 9:56am [facility] Work Phone: 1(470) 322-841408-26-2024 History of Present illness Narrative* Rebeca Hoyt MD - 01/05/2024 2:00 PM EDT Assessment/Plan Dry Eyes OU -- Environmental changes to minimize dryness and exposure and the use of artificial tears were recommended. documented [id number] Hospital Discharge instructions Patient Education 10/13/2023 13:39:08 Kidney Stones, Nsjx-yb-Wxvb Kidney Stones Kidney stones are rock-like masses [...] Follow these instructions at home: Medicines Take vada-wfz-fonkmjp and prescription medicines only as told by [...] provider. Document Revised: 12/31/2021 Document Reviewed: 12/31/2021 [employer] [facility] [place] Patient Education 2022 [employer]. Follow Up Care 09/17/2023 08:40:02 With:SHANNON SALGUERO, Roman Mitchell, URL Address: [facility] [address], [place] [address]- [phone] When: Unknown [facility] 05-08-2024 Hospital Discharge instructions Patient Education [...] Follow these instructions at home: Medicines Take pswm-qvw-nlodrqq and prescription medicines only as told by [...] provider. Document Revised: 08/07/2022 Document Reviewed: 08/07/2022 [facility] [facility] [place] Patient Education 2022 [employer]. Follow Up Care 09/11/2023 08:49:49 With:SHANNON SALGUERO, Roman Mitchell, URL Address: [facility] [address], [place] [address]- When: Unknown [facility] [place] 09-22-2023 Evaluation note* Encounter Date Diagnosis Assessment Notes Treatment Notes Treatment Clinical Notes Jan, Seasonal allergic rhinitis, unspecified trigger (ICD-10 - J30.2) [facility] Other 09-01-2023 Evaluation note* Encounter Date Diagnosis Assessment Notes Treatment Notes Treatment Clinical Notes Jan, Piriformis syndrome of left side (ICD-10 - G57.02) Unable to add more tramadol - likely has pain clinic w [facility]. PT order printed. Add steroids. Also gave copies of home exercises. [facility] Other 06-19-2023 Evaluation note* Encounter Date Diagnosis [...] labs. - order handwritten and given to [facility] Other 04-27-2023 NoteCONSULTATION CONSULTATION DATE: 09/05/2022 TO: [...] our patients to inform us about any tagr-ryb-gkfmzoe medications or herbal remedies/nutritional supplements/alternative remedies. 2. [...] treatment options with their primary care provider.[id number] Note CONSULTATION PROCEDURE DATE: 12/25/2021 PREOPERATIVE DIAGNOSIS: [...] procedurally range of motion exercises are performed.[facility] 12-19-2021 NoteCONSULTATION CONSULTATION DATE: 12/19/2021 This is [...] where she was seen by the physician surgery assistant in the office and received left [...] plan of care, to be contacted [facility] Future Appointments Appointment Date:10/13/2023 12:15:00 PM Scheduled Provider:Roman ORTEGA MD Location:[facility] Appointment Type:URO Office Visit [facility] [place] Evaluation + Plan note Future Appointments Appointment Date:01/28/2025 10:15:00 AM Scheduled Provider:Roman ORTEGA MD Location:[facility] Appointment Type:URO Office Visit [facility] evaluation noteNo InformationNort Delight Other Evaluation noteNo assessment information available [facility] Work Phone: Evaluation note* Diagnosis Onset Date Resolution Status Right lumbar pain acute [facility] Work Phone: Evaluation note* Diagnosis Onset Date Resolution Status Right lumbar pain acute Medicare annual wellness visit, subsequent acute Nephrolithiasis acute Screening mammogram for breast cancer acute [facility] Work Phone: Evaluation note* Diagnosis Onset Date Resolution Status Right lumbar pain acute Medicare annual wellness visit, subsequent acute Nephrolithiasis acute Screening mammogram for breast cancer acute Laceration of left lower leg without complication acute Lumbar back pain acute [facility] Work Phone: Evaluation note* Diagnosis Dry eyes- Primary 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), bilateral Unspecified after-cataract documented [facility] - Reported* Type Description Date Medical History migraine headache Medical History dizziness Medical History tremors Surgical History hysterectomy Surgical History bunionectomy Surgical History stapedectomy Hospitalization History see above [facility] Other Hospital course Narrative No data available for this section [facility] Hospital Discharge instructionsAmbulatory Orders* Referral to PT / OT / Speech (PT/OT/SP) Location: None Selected [facility] Work Phone: Hospital Discharge instructionsAmbulatory Orders* Referral to Orthopedic Surgery Location: None Selected [facility] Work Phone: Hospital Discharge instructions No data available for this section [facility] [place] progress note No data available for this section [facility] Summary Purpose Family History No Family History [...] 11:4 4am fu after PT-doing pt in [place] September 15, 2024 8:13am Reason for Visit Admit Date Seasonal allergic rhinitis August 18 11:44am Chief Complaint Admit Date Allergy Shot August 18, 2024 11:4 4am fu after [place]doing pt in [place] September 15, 2024 8:13am back pain October 14, 2024 9:56a m Reason for Visit Admit Date Seasonal allergic rhinitis August 18 11:44am Lumbar back pain September 15, 2024 8:13am Lumbar back pain October 14, 2024 9:56a m Additional Source Comments INFORMATION SOURCE (unrecogn ized section and content) DATE CREATED AUTHOR 10/18/2022 [facility] DATE CREATED AUTHOR AUTHOR'S ORGANIZ ATION 01/06/2024 [facility] EPIC DATE CREATED AUTHOR AUTHOR'S ORGANIZ ATION 09/19/2024 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 Education Relationship Specialty Start Date End Date Valeriy Higgins MD [address] [phone] PCP - General 12/25/22 Team Status: Inactive Member Role Status Henrietta Higgins MD Primary Care Provide r, Attending Provider Active Start: August 18, 2024 End: August 18, 2024 Team Status: Inactive Member Role Status Henrietta Higgins MD Primary Care Provider Active Start: September 15, 2024 End: September 15, 2024 Gerardo Vanegas DO Attending Provider Active S tart: September 15, 2024 End: September 15, 2024 Team Status: Inactive Member Role Status Henrietta [...] BE BASED ON THE PRIMARY CLINICAL RECORDS. [employer] [facility]. provides no warranty or guarantee of the accuracy or completeness of information in this document.
--- NOTE | 2024-12-24 09:45 | ECG_ITS ---
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 Measurements Intervals [place] Rate: 55 P: 66 WI: 126 QRS: -57 QRSD: 99 T: 40 QT: 427 QTc: 410 Interpretive Statements SINUS BRADYCARDIA POSSIBLE LEFT ATRIAL ENLARGEMENT [-0.1mV P WAVE IN V1/V2] INCOMPLETE RIGHT BUNDLE BRANCH BLOCK [90+ ms QRS DURATION, TERMINAL R IN V1/V2, 40+ ms S IN I/aVL/V4/V5/V6] LEFT ANTERIOR FASCICULAR BLOCK [QRS AXIS <= -45, QR IN I, RS IN II] SEPTAL MYOCARDIAL INFARCTION [40+ ms Q WAVE IN V1/V2], OF INDETERMINATE AGE Abnormal ECG Compared to ECG 04/02/2017 08:51:54 Incomplete right bundle-branch block now present Left anterior fascicular block now present Myocardial infarct finding now present Electronically Signed On 12-24-2024 20:50:31 EDT by ADITI VALLADARES M.D.
== END 2024-12-24 09:33 | disposition home or self-care (01) ==
LOC: CARD 09:33
PROVIDERS: PCP Family Medicine; Visit Provider Orthopaedic Surgery Orthopaedic Surgery of the Spine
DX: M48.062 Spinal stenosis, lumbar region with neurogenic claudication (principal)
CPT/HCPCS: 93005

== ENCOUNTER 2024-12-28 07:23 | Outpatient (OUT) | payer MEDICARE, SELFPAY ==
--- OUTSIDE RECORDS SUMMARY | 2024-12-17 05:10 | XMS_ITS ---
Author Organization [facility] Address [address] [place] [address] Care Team Providers Care Food Production Associate Name Role Phone Savanna Guajardo M.D. Primary Care Provider Unavail able Kandi Alanizjonathan Unavailable [phone] REASON FOR VISIT lumbar CT myelogram review [...] Problem Status W/U Status Risk Notes Problem 64041195 Lumbar stenosis with neurogenic claudication (M48.062) Active confirmed Problem 368841704 Scoliosis of lumbar spine, unspecified scoliosis type (M41.9) Active confirmed Procedures Procedure Date Ordered Date Performed Result Body Sit e EKG 12/17/2024 N/A Encounters Encounter Location Date Provider Diagnosis [facility] [address] [place] [address] 12/17/2024 Sel[facility] Lumbar stenosis with neurogenic claudication M48.062 and [...] limited efficacy) - Consider scheduling surgery at [facility] based on availability - Provide patient [...] limited efficacy) - Consider scheduling surgery at [facility] based on availability - Provide patient education on post-operative care and recovery expectations - Arrange for post-operative follow-up in 3-4 weeks to evaluate recovery progress Pending Test Test Name Order Date Chest 2 views - 38988 12/17/2024 CBC 12/17/2024 PT/PTT 12/17/2024 BMP 12/17/2024 MRSA (Bilateral Nares) PCR 12/17/2024 EKG 12/17/2024 Next Appt Details Follow Up: schedule surgery, Reason: Provider Name:Jae Doran Brian , 12/31/2024 09:50:00 AM, [address] [place], [address], Provider Name:Jae Dooley [facility], 01/04/2025 12:30:00 PM, [address] [facility], [place], [place], [id number], Provider Name:[facility], 02/17/2025 10:10:00 AM, [address] [facility], [place], [address], Progress Notes * EDUARDO LEA LDOB: (84 yo F)Acc No.[id number]:12/17/2024 Patient: EDUARDO GORMAN Provider: Lobito Sheth MD, PhD :1940 A ge:84 Y S ex:Female Date:12/17/2024 Address:[address] [place] [address], [facility] Pcp:Savanna Guajardo M.D. Subjective: * Chief Complaints: [...] limited efficacy) - Consider scheduling surgery at [place] or [facility] based on availability - Provide patient education on post-operative care and recovery expectations - Arrange for post-operative follow-up in 3-4 weeks to evaluate recovery progress * Procedure Codes: 7 1046 X-RAY EXAM CHEST 2 VIEWS * Follow Up: lobito [facility] surgery Forms: * Images: * Electronic signature of Andrew Alaniz MD, PHD on 12/28/2024 at 07:28 AM EDT Sign off status: Pending * Provider: Lobito Sheth MD, PhD Date: 0 12/17/2024 Generated for Liberty tang/Juan/Josselyn on: 0 12/28/2024 07:28 AM EDT History and Physical Notes * [...]
--- OUTSIDE RECORDS SUMMARY | 2024-12-28 07:29 | XMS_ITS | CCD ---
Author Organization [facility] Care Team Providers Care Food Safety Coordinator Name Role Phone GISELA, DR SAVANNA Willis [...] Unavailable GISELA, DR SAVANNA Willis Attending Unavailable REESE, DR MINE Barriga Consult[employer] Unavailable GISELA, DR [...] Higgins Unavailable SAVANNA HIGGINS Primary Care Physician [phone] REBECA HOYT Attending Unavailable Valeriy Higgins MD Primary Care Provider Community, Outreach Admitting Unavailable Community, Outreach Attending Unavailable Savanna Higgins Primary Care Unavailable Roman ORTEGA Attending Unavailable Roman ORTEGA Attending Unavailable POONAM ADAIR Referring Unavailable POONAM ADAIR Admitting Unavailable POONAM ADAIR Attending Unavailable St Kim SALGUERO, Jae Dooley Attending Unavailverena Cifuentes MD, Dulce Cooper Attending Unavailable Vane SALGUERO, Dulce [...] Start: 02-19-2010 take 1 tablet by christian th once daily [place]-3 Fish Oil 1 tab, Oral, Daily, Refill(s) 0, Prophylaxis Start Date: 02/19/10 Status: Ordered Repeat number: 1 Start: 02-19-2010 take 1 tablet by christian th once daily [place]-3 Fish Oil 1 tab, Oral, Daily, Refill(s) [...] Start: 02-19-2010 take 1 capsule by mo [facility] once daily Multiple Vitamins oral capsule 1 cap(s), Oral, Daily, Refill(s) 0, Prophylaxis Start Date: 02/19/10 Status: Ordered Multivitamin preparation (7 sources) Multivitamin Act marysol naproxen sodium 220 mg oral tablet (1 source) Nonsteroidal Anti-inflammatory Drug Start: 11-24-19 25 take 220 mg by mouth every twelve [...] sources) alpha-Adrenergic Tera Start: 09-17-19 End: 10-17-19 take 1 capsule by mouth once daily Flomax 0.4 mg Cap 0.4 mg = 1 cap(s), Oral, Daily, Stop taking if experiencing dizziness or lightheadedness., X 30 day(s), # 30 cap(s), Refills(s) 0, Pharmacy: [facility]/pharmacy #[id number], 56.1, kg, 09/17/23 8:03:00 [...] mg oral tablet (8 sources) Corticosteroid Start: End: 4 take 1 tablet by mouth once Methylprednisolone (Medrol (Herb)) 4 mg tablets,dose pack Discontinued 0 PO per package directions September 30, 2023 12:00am April 05, 2024 11:23am PO PER PKG DIR for 6 days 24 hr metoprolol succinate 25 mg extended release oral capsule (15 sources) beta-Adrenergic Tear Start: End: 4 take 1 capsule by [...] REPORT Dictated: 11/23/2024 2:21 pm Shay Schulte MD Signed (Electronic Signature): 11/23/2024 2:21 pm Signed by: Shay Schulte MD Transcribed by: DIOGO Technologist: ASHUTOSH Yao [facility] XR Myelography Lumbosacralon 11-23-2024 XR Myelography [...] Shay Schulte MD Transcribed by: DIOGO Technologist: DPR Normal [facility] Basophils Auto (Bld) [#/Vol] on 09-09-2023 Basophils (Bld) [#/Vol] 0.0 10 3/uL 0.0-0.1 [facility] [place] [facility] Basophils/100 WBC Auto (Bld) on 09-09-2023 Basophils/100 WBC (Bld) 0.4 % 0.2-2.0 [facility] Casts typing in urine sedime nt by light microscopyon 09-09-2023 Casts LM Nom (Urine sed) NONE SEEN #/LPF NONE SEEN [facility] Eosinophils/100 WBC Auto (Bl d)on 09-09-2023 Eosinophils/100 WBC (Bld) 1.1 % 0.9-7.0 [facility] Erythrocyte distribution wid th Auto (RBC) [Ratio]on 09-09-2023 Erythrocyte distribution width (RBC) [Ratio] 13.0 % 11.0-15.0 [facility] Estimated glomerular filtrat ion rate (GFR) non- Americanon 09-09-2023 GFR/1.73 sq M.predicted among non-blacks MDRD (S/P/Bld) [Vol rate/Area] 52 mL/min/{1.73_m2} Low >=60 [facility] Globulin Calc (S) [Mass/Vol] on 09-09-2023 Globulin (S) [Mass/Vol] 3.5 g/dL [facility] Hematocrit Auto (Bld) [Volum e fraction]on 09-09-2023 Hematocrit (Bld) [Volume fraction] 39.0 % 36.0-48.0 [facility] Hemoglobin [Mass/volume] in Bloodon 09-09-2023 Hemoglobin (Bld) [Mass/Vol] 12.6 g/dL 12.0-16.0 [facility] Laboratory - Chemistry and C hemistry - challengeon 09-09-2023 Albumin [Mass/Vol] 3.6 g/dL 3.4-5.0 [facility] ALP [Catalytic activity/Vol] 74 U/L 46-116 [facility] ALT [Catalytic activity/Vol] 30 U/L 14-59 [facility] AST [Catalytic activity/Vol] 24 U/L 15-37 [facility] Bilirubin [Mass/Vol] 0.5 mg/dL 0.2-1.0 [facility] Calcium [Mass/Vol] 9.8 mg/dL 8.5-10.1 [facility] Chloride [Moles/Vol] 102 mmol/L 98-107 [facility] CO2 [Moles/Vol] 31.2 mmol/L 21.0-32.0 [facility] Creatinine [Mass/Vol] 1.01 mg/dL 0.55-1.02 [facility] GFR/1.73 sq M.predicted MDRD (S/P/Bld) [Vol rate/Area] mL/min/{1.73_m2} >=60 [facility] [place] [facility] Glucose [Mass/Vol] 100 mg/dL 74-106 [facility] Lipase [Catalytic activity/Vol] 25.0 U/L 16.0-77.0 [facility] [place] [facility] Potassium [Moles/Vol] 3.9 mmol/L 3.5-5.1 [facility] Protein [Mass/Vol] 7.1 g/dL 6.4-8.2 [facility] Sodium [Moles/Vol] 140 mmol/L 136-145 [facility] Urea nitrogen [Mass/Vol] 22.0 mg/dL High 7.0-18.0 [facility] Urea nitrogen/Creatinine [Mass ratio] 21.8 mg/mg [facility] Bilirubin Ql (U) Negative NEGATIVE [facility] Glucose (U) [Mass/Vol] Negative NEGATIVE [facility] Ketones Ql (U) Negative NEGATIVE [facility] pH (U) 6.0 [pH] 5.0-9.0 [facility] Specific gravity (U) [Rel density] 1.020 1.005-1.025 [facility] Urobilinogen Qn (U) 0.2 {Sosa'U}/dL 0.2-1.0 [facility] Laboratory - Hematology and Cell countson 09-09-2023 Immature granulocytes/100 WBC (Bld) 0.3 % 0.0-0.5 [facility] Laboratory - Specimen inform ationon 09-09-2023 Appearance (U) CLEAR CLEAR [facility] Color (U) DK. YELLOW YELLOW [facility] Laboratory - Urinalysison Amorphous sediment LM Ql (Urine sed) RARE [facility] Leukocyte esterase Test strip Ql (U) TRACE Abnormal NEGATIVE [facility] Nitrite Ql (U) Negative NEGATIVE [facility] Protein Ql (U) Negative NEG/TRACE [facility] Leukocytes [#/volume] correc bill for nucleated erythrocytes in Blood by Automated counon 09-09-2023 WBC corrected for nucl RBC Auto (Bld) [#/Vol] 10.7 10 3/uL 4.0-11.0 [facility] Lymphocytes Auto (Bld) [#/Vo l]on 09-09-2023 Lymphocytes (Bld) [#/Vol] 1.5 10 3/uL 1.2-3.8 [facility] Lymphocytes/100 WBC Auto (Bl d)on 09-09-2023 Lymphocytes/100 WBC (Bld) 13.7 % Low 20.5-60.0 [facility] MCH Auto (RBC) [Entitic mass ]on 09-09-2023 MCH (RBC) [Entitic mass] 31.2 pg 26.7-34.0 [facility] MCHC Auto (RBC) [Mass/Vol]on 09-09-2023 MCHC (RBC) [Mass/Vol] 32.3 g/dL 29.9-35.2 [facility] MCV Auto (RBC) [Entitic vol] on 09-09-2023 MCV (RBC) [Entitic vol] 96.5 fL 81.0-99.0 [facility] Monocytes Auto (Bld) [#/Vol] on 09-09-2023 Monocytes (Bld) [#/Vol] 1.0 10 3/uL High 0.3-0.8 [facility] Monocytes/100 WBC Auto (Bld) on 09-09-2023 Monocytes/100 WBC (Bld) 9.5 % 1.7-12.0 [facility] Mucus LM Ql (Urine sed)on Mucus Ql (Urine sed) NONE SEEN NONE SEEN [facility] Neutrophils Auto (Bld) [#/Vo l]on 09-09-2023 Neutrophils (Bld) [#/Vol] 8.0 10 3/uL High 1.4-6.5 [facility] Neutrophils/100 WBC Auto (Bl d)on 09-09-2023 Neutrophils/100 WBC (Bld) 75.0 % 43.0-75.0 [facility] No Panel Informationon 09-08 Eosinophils # (Auto) 0.1 10 3/uL 0.0-0.7 [facility] Immature Granulocyte # (Auto) 0.03 10 3/uL 0.00-0.03 [facility] Urine Bacteria NONE SEEN #/HPF NONE SEEN [facility] Urine Culture Reflexed NO [facility] Urine Microscopic Review YES [facility] Urine Occult Blood LARGE Abnormal NEGATIVE [facility] Urine Other Crystals Seen #/HPF Abnormal None Seen [facility] Urine RBC 10-20 #/HPF Abnormal 0-2 [facility] Urine Squamous Epithelial Cells NONE SEEN #/LPF NONE/RARE [facility] Urine Uric Acid Crystals FEW [facility] Urine WBC 2-5 #/HPF Abnormal NONE SEEN [facility] Platelet mean volume Auto (B ld) [Entitic vol]on 09-09-2023 Platelet mean volume (Bld) [Entitic vol] 9.5 fL 9.5-13.5 [facility] Platelets Auto (Bld) [#/Vol] on 09-09-2023 Platelets (Bld) [#/Vol] 240 10 3/uL 150-450 [facility] RBC Auto (Bld) [#/Vol]on RBC (Bld) [#/Vol] 4.04 10 6/uL Low 4.20-5.[address] [facility] Serum or plasma albumin/glob ulin mass ratioon 09-09-2023 Albumin/Globulin [Mass ratio] 1.0 {ratio} [facility] Serum or plasma anion gap de terminationon 09-09-2023 Anion gap [Moles/Vol] 10.7 mmol/L [facility] XR RIBS [...] Date: 2022-10-02 11:51 Normal [facility] XR CSPINE 2_3 VIEWSon 2022 XR CSPINE [...] Date: 2022-09-05 15:58 Normal [facility] CBC AUTO DIFFon 12-31-2021 BASO # 0.0 103/ul Normal 0.0-0.1 [facility] Comment on above: Performed By: #### C BC #### [facility] [address] [address] [address] Radha Land Basophils/100 WBC (Bld) 0.2 % Normal 0.2-2.0 [facility] Comment on above: Performed By: #### C BC #### [facility] [address] [address] [address] Radha Land EO # 0.2 103/ul Normal 0.0-0.7 [facility] Comment on above: Performed By: #### C BC #### [facility] [address] [address] [address] Radha Land Eosinophils/100 WBC (Bld) 1.7 % Normal 0.9-7.0 [facility] Comment on above: Performed By: #### C BC #### [facility] [address] [place] [address] Dr. Radha Land Erythrocyte distribution width (RBC) [Ratio] 13.4 % Normal 11.0-15.0 [facility] Comment on above: Performed By: #### C BC #### [facility] [address] [place] [address] Dr. Radha Land Hematocrit (Bld) [Volume fraction] 40.9 % Normal 36.0-48.0 [facility] Comment on above: Performed By: #### C BC #### [facility] [address] [place] [address] Dr. Radha Land Hemoglobin (Bld) [Mass/Vol] 13.1 g/dL Normal 12.0-16.0 [facility] Comment on above: Performed By: #### C BC #### [facility] [address] [place] [address] Dr. Radha Land IG # 0.05 10e3/ul Critically high 0.00-0.03 [facility] Comment on above: Performed By: #### C BC #### [facility] [address] [place] [address] Dr. Radha Land IG % 0.4 % Normal 0.0-0.5 [facility] Comment on above: Performed By: #### C BC #### [facility] [address] [place] [address] Dr. Radha Land LYMPH # 1.4 103/ul Normal 1.2-3.8 [facility] Comment on above: Performed By: #### C BC #### [facility] [address] [place] [address] Dr. Radha Land Lymphocytes/100 WBC (Bld) 10.8 % Critically low 20.5-60.0 [facility] Comment on above: Performed By: #### C BC #### [facility] [address] [place] [address] Dr. Radha Land MANUAL DIFF REQ NO Normal [facility] Comment on above: Performed By: #### C BC #### [facility] [address] [place] [address] Dr. Radha Land MCH (RBC) [Entitic mass] 31.5 pg Normal 26.7-34.0 [facility] Comment on above: Performed By: #### C BC #### [facility] [address] [place] [address] Dr. Radha Land MCHC (RBC) [Mass/Vol] 32.0 g/dL Normal 29.9-35.2 [facility] Comment on above: Performed By: #### C BC #### [facility] [address] [place] [address] Dr. Radha Land MCV (RBC) [Entitic vol] 98.3 fL Normal 81.0-99.0 [facility] Comment on above: Performed By: #### C BC #### [facility] [address] [place] [address] Dr. Radha Land MONO # 1.3 103/ul Critically high 0.3-0.8 [facility] Comment on above: Performed By: #### C BC #### [facility] [address] [place] [address] Dr. Radha Land Monocytes/100 WBC (Bld) 9.7 % Normal 1.7-12.0 [facility] Comment on above: Performed By: #### C BC #### [facility] [address] [place] [address] Dr. Radha Land NEUT # 10.2 103/ul Critically high 1.4-6.[address] [facility] Comment on above: Performed By: #### C BC #### [facility] [address] [place] [address] Dr. Radha Land Neutrophils/100 WBC (Bld) 77.2 % Critically high 43.0-75.0 [facility] Comment on above: Performed By: #### C BC #### [facility] [address] [place] [address] Dr. Radha Land Platelet mean volume (Bld) [Entitic vol] 9.7 fL Normal 9.5-13.5 [facility] Comment on above: Performed By: #### C BC #### [facility] [address] [address] [address] Radha Land PLT 235 103/ul Normal 150-450 [facility] Comment on above: Performed By: #### C BC #### [facility] [address] [place] [address] Dr. Radha Land RBC 4.16 106/ul Critically low 4.20-5.40 [facility] Comment on above: Performed By: #### C BC #### [facility] [address] [place] [address] Dr. Radha Land WBC 13.2 103/ul Critically high 4.0-11.[address] [facility] Comment on above: Performed By: #### C BC #### [facility] [address] [place] [address] Dr. Radha Land SED RATE WESTERGRENon 2021 SED RATE 35 mm/hr Critically high <=30 [facility] Comment on above: Performed By: #### S EDR #### [facility] [address] [place] [address] Dr. Radha Land CBC AUTO DIFFon 11-07-2021 BASO # 0.0 103/ul Normal 0.0-0.1 [facility] Comment on above: Performed By: #### C BC ####[facility] [address] [place], [place] [address]Dr. Radha Land Basophils/100 WBC (Bld) 0.3 % Normal 0.2-2.0 [facility] Comment on above: Performed By: #### C BC ####[facility] [address] [place], [place] [address]Dr. Radha Land EO # 0.2 103/ul Normal 0.0-0.7 [facility] Comment on above: Performed By: #### C BC ####[facility] [address] [place], [place] [address]Dr. Radha Land Eosinophils/100 WBC (Bld) 3.3 % Normal 0.9-7.0 [facility] Comment on above: Performed By: #### C BC ####[facility] [address] [address]Dr. Radha Land Erythrocyte distribution width (RBC) [Ratio] 13.2 % Normal 11.0-15.0 [facility] Comment on above: Performed By: #### C BC ####[facility] [address] [place], [place] [address]Dr. Radha Land Hematocrit (Bld) [Volume fraction] 41.9 % Normal 36.0-48.0 [facility] Comment on above: Performed By: #### C BC ####[facility] [address] [place], [place] [address]Dr. Radha Land Hemoglobin (Bld) [Mass/Vol] 13.4 g/dL Normal 12.0-16.0 [facility] Comment on above: Performed By: #### C BC ####[facility] [address] [place], [place] [address]Dr. Radha Land IG # 0.01 10e3/ul Normal 0.00-0.03 [facility] Comment on above: Performed By: #### C BC ####[facility] [address] [place], [place] [address]Dr. Radha Land IG % 0.2 % Normal 0.0-0.5 [facility] Comment on above: Performed By: #### C BC ####[facility] [address] [place], [place] [address]Dr. Radha Land LYMPH # 1.6 103/ul Normal 1.2-3.8 [facility] Comment on above: Performed By: #### C BC ####[facility] [address] [place], [place] [address]Dr. Radha Land Lymphocytes/100 WBC (Bld) 27.5 % Normal 20.5-60.0 [facility] Comment on above: Performed By: #### C BC ####[facility] [address] [place] [address]. Radha Emery MANUAL DIFF REQ NO Normal [facility] Comment on above: Performed By: #### C BC ####[facility] [address] [address]Dr. Radha Land MCH (RBC) [Entitic mass] 31.2 pg Normal 26.7-34.0 [facility] Comment on above: Performed By: #### C BC ####[facility] [address] [place], [place] [address]Dr. Radha Emery MCHC (RBC) [Mass/Vol] 32.0 g/dL Normal 29.9-35.2 [facility] Comment on above: Performed By: #### C BC ####[facility] [address] [place], [place] [address]Dr. Radha Emery MCV (RBC) [Entitic vol] 97.7 fL Normal 81.0-99.0 [facility] Comment on above: Performed By: #### C BC ####[facility] [address] [place], [place] [address]Dr. Radha Emery MONO # 0.7 103/ul Normal 0.3-0.8 [facility] Comment on above: Performed By: #### C BC ####[facility] [address] [place], [place] [address]Dr. Jacquelyncharlotte Land Monocytes/100 WBC (Bld) 12.4 % Critically high 1.7-12.0 [facility] Comment on above: Performed By: #### C BC ####[facility] [address] [place], [place] [address]DrHernandez Land NEUT # 3.2 103/ul Normal 1.4-6.5 [facility] Comment on above: Performed By: #### C BC ####[facility] [address] [place], [place] [address]DrHernandez Land Neutrophils/100 WBC (Bld) 56.3 % Normal 43.0-75.0 [facility] Comment on above: Performed By: #### C BC ####[facility] [address] [place], [place] [address]DrHernandez Radha Land Platelet mean volume (Bld) [Entitic vol] 9.4 fL Critically low 9.5-13.5 [facility] Comment on above: Performed By: #### C BC ####[facility] [address] [place], [place] [address]Ss. Radha Land PLT 226 103/ul Normal 150-450 [facility] Comment on above: Performed By: #### C BC ####[facility] [address] [address]Dr. Radha Land RBC 4.29 106/ul Normal 4.20-5.40 [facility] Comment on above: Performed By: #### C BC ####[facility] [address] [address]Dr[address] Radha Land WBC 5.7 103/ul Normal 4.0-11.0 [facility] Comment on above: Performed By: #### C BC ####[facility] [address] [id number][address] Radha Land LIPID PROFILEon 11-07-2021 CHOL-HDL RATIO NORM SEE BELOW Normal [facility] Comment on above: Result Comment: 3.3 - 4.4 LOW RISK 4.4 - 7.1 AVERAGE RISK 7.1 - 11.0 MODERATE RISK >11.0 HIGH RISK Performed By: #### L IPID, CMP #### [facility] [address] [address] [address] Radha Land Cholesterol [Mass/Vol] 257 mg/dL Critically high <=200 [facility] Comment on above: Performed By: #### L IPID, CMP #### [facility] [address] [address] [address] Radha Land Cholesterol in HDL [Mass/Vol] 76 mg/dL Critically high 40-60 [facility] Comment on above: Performed By: #### L IPID, CMP #### [facility] [address] [address] [address] Radha Land Cholesterol in LDL [Mass/Vol] 163.8 mg/dL Normal [facility] Comment on above: Performed By: #### L IPID, CMP #### [facility] [address] [address] [address] Radha Land Cholesterol.total/Cho lesterol in HDL [Mass ratio] 3.4 {ratio} Normal [facility] Comment on above: Performed By: #### L IPID, CMP #### [facility] [address] [address] [address] Radha Land HDL NORMAL > or = 60 mg/dl - LOW CARDIOVASCULAR RISK <40 mg/dl - HIGH CARDIOVASCULAR RISK Normal [facility] Comment on above: Performed By: #### L IPID, CMP #### [facility] [address] [address] [address] Radha Land LDL CALC NORMAL SEE BELOW Normal [facility] Comment on above: Result Comment: <100 mg/dl OPTIMAL 100 - 129 mg/dl NEAR OR ABOVE OPTIMAL 130 - 159 mg/dl BORDERLINE HIGH 160 - 189 mg/dl HIGH >190 mg/dl VERY HIGH Performed By: #### L IPID, CMP #### [facility] [address] [address] [address] Radha Land Triglyceride [Mass/Vol] 86 mg/dL Normal <=150 [facility] Comment on above: Performed By: #### L IPID, CMP #### [facility] [address] [address] [address] Radha Land VLDL CALC 17.2 mg/dL Normal [facility] Comment on above: Performed By: #### L IPID, CMP #### [facility] [address] [address] [address] Radha Land MG MAMM SCREEN 3D GIANCARLO CADon 11-07-2021 MG MAMM SCREEN 3D GIANCARLO CAD Patient: EDUARDO LEA Exam Date: 11/07/2021 : 1940 Gender:F Ordering : DR SAVANNA HIGGINS M.D. Admission #: [id number] Family : Order #: [id number] CLICK HERE TO VIEW EXAM RADIOLOGY REPORT [...] at age 47. LOCATION: [facility] BREAST COMPOSITION: Extremely dense, which lowers the [...] MD on 11/07/2021 at 11:21 Normal [facility] PROF 14(COMP METB)on 022 Albumin [Mass/Vol] 3.6 g/dL Normal 3.4-5.0 [facility] Comment on above: Performed By: #### L IPID, CMP #### [facility] [address] [place] [address] Dr. Radha Land Albumin/Globulin [Mass ratio] 0.9 {ratio} Normal [facility] Comment on above: Performed By: #### L IPID, CMP #### [facility] [address] [place] [address] Dr. Radha Land ALP [Catalytic activity/Vol] 79 U/L Normal 46-116 [facility] Comment on above: Performed By: #### L IPID, CMP #### [facility] [address] [place] [address] Dr. Radha Land ALT [Catalytic activity/Vol] 32 U/L Normal 14-59 [facility] Comment on above: Performed By: #### L IPID, CMP #### [facility] [address] [place] [address] Dr. Radha Land Anion gap [Moles/Vol] 6.1 mmol/L Normal [facility] Comment on above: Performed By: #### L IPID, CMP #### [facility] [address] [address] [address] Radha Land AST [Catalytic activity/Vol] 28 U/L Normal 15-37 [facility] Comment on above: Performed By: #### L IPID, CMP #### [facility] [address] [address] [address] Radha Land Bilirubin [Mass/Vol] 0.6 mg/dL Normal 0.2-1.0 [facility] Comment on above: Performed By: #### L IPID, CMP #### [facility] [address] [address] [address] Radha Land Calcium [Mass/Vol] 9.1 mg/dL Normal 8.5-10.1 [facility] Comment on above: Performed By: #### L IPID, CMP #### [facility] [address] [place] [address] Dr. Radha Land Chloride [Moles/Vol] 104 mmol/L Normal 98-107 [facility] Comment on above: Performed By: #### L IPID, CMP #### [facility] [address] [place] [address] Dr. Radha Land CO2 [Moles/Vol] 31.0 mmol/L Normal 21.0-32.0 [facility] Comment on above: Performed By: #### L IPID, CMP #### [facility] [address] [place] [address] Dr. Radha Land Creatinine [Mass/Vol] 0.86 mg/dL Normal 0.55-1.02 [facility] Comment on above: Performed By: #### L IPID, CMP #### [facility] [address] [place] [address] Dr. Radha Land EGFR-AF CAMEROONIAN >60 Normal >=[address] [facility] Comment on above: Performed By: #### L IPID, CMP #### [facility] [address] [place] [address] Dr. Radha Land EGFR-NON AF CAMEROONIAN >60 Normal >=60 [facility] Comment on above: Performed By: #### L IPID, CMP #### [facility] [address] [address] [address] Radha Land Globulin (S) [Mass/Vol] 4.1 g/dL Normal [facility] Comment on above: Performed By: #### L IPID, CMP #### [facility] [address] [address] [address] Radha Land Glucose [Mass/Vol] 89 mg/dL Normal 74-106 [facility] Comment on above: Performed By: #### L IPID, CMP #### [facility] [address] [address] [address] Radha Land Potassium [Moles/Vol] 4.1 mmol/L Normal 3.5-5.1 [facility] Comment on above: Performed By: #### L IPID, CMP #### [facility] [address] [place] [address] Dr. Radha Land Protein [Mass/Vol] 7.7 g/dL Normal 6.4-8.2 [facility] Comment on above: Performed By: #### L IPID, CMP #### [facility] [address] [place] [address] Dr. Radha Land Sodium [Moles/Vol] 137 mmol/L Normal 136-145 [facility] Comment on above: Performed By: #### L IPID, CMP #### [facility] [address] [place] [address] Dr. Radha Land Urea nitrogen [Mass/Vol] 12.0 mg/dL Normal 7.0-18.0 [facility] Comment on above: Performed By: #### L IPID, CMP #### [facility] [address] [place] [address] Dr. Radha Land Urea nitrogen/Creatinine [Mass ratio] 14.0 mg/mg Normal [facility] Comment on above: Performed By: #### L IPID, CMP #### [facility] [address] [place] [address] Dr. Radha Land Vital Signs Date Time Vital Sign Value Performing Clinician Facility 10-14-2024 09:57-0400 Body height 165.1 cm [facility] 10-14-2024 09:57-0400 Body mass index (BMI) [Ratio] 20.3 kg/m2 [facility] 10-14-2024 09:57-0400 Body weight 55.56 kg [facility] 10-14-2024 09:57-0400 Diastolic blood pressure 81 mm[Hg] [facility] 10-14-2024 09:57-0400 Heart rate 84 /min [facility] 10-14-2024 09:57-0400 Systolic blood pressure 160 mm[Hg] [facility] 09-15-2024 08:18-0400 Body weight 55.1 kg [facility] 09-15-2024 08:18-0400 Diastolic blood pressure 71 mm[Hg] [facility] 09-15-2024 08:18-0400 Systolic blood pressure 109 mm[Hg] [facility] 11-18-2023 10:53-0400 Body height 165.1 cm [facility] 11-18-2023 10:53-0400 Body mass index (BMI) [Ratio] 20.5 kg/m2 [facility] 11-18-2023 10:53-0400 Body weight 55.79 kg [facility] 11-18-2023 10:53-0400 Diastolic blood pressure 55 mm[Hg] [facility] 11-18-2023 10:53-0400 Heart rate 65 /min [facility] 11-18-2023 10:53-0400 Systolic blood pressure 132 mm[Hg] [facility] 11-06-2023 11:11-0400 Body height 165.1 cm [facility] 11-06-2023 11:11-0400 Body mass index (BMI) [Ratio] 20.2 kg/m2 [facility] 11-06-2023 11:11-0400 Body weight 55.33 kg [facility] 11-06-2023 11:11-0400 Diastolic blood pressure 67 mm[Hg] [facility] 11-06-2023 11:11-0400 Heart rate 61 /min [facility] 11-06-2023 11:11-0400 Systolic blood pressure 124 mm[Hg] [facility] 10-13-2023 12:31-0400 Blood Pressure Location Roman ORTEGA [facility] 10-13-2023 12:31-0400 Diastolic blood pressure 78 mm[Hg] Roman ORTEGA [facility] 10-13-2023 12:31-0400 Heart rate 80 /min Romanarminda ORTEGA [facility] 10-13-2023 12:31-0400 Respiratory rate 16 /min Roman ORTEGA [facility] 10-13-2023 12:31-0400 Systolic blood pressure 134 mm[Hg] Romna ORTEGA [facility] 09-30-2023 14:31-0400 Body height 165.1 cm [facility] 09-30-2023 14:31-0400 Body mass index (BMI) [Ratio] 20.5 kg/m2 [facility] 09-30-2023 14:31-0400 Body weight 55.79 kg [facility] 09-30-2023 14:31-0400 Diastolic blood pressure 62 mm[Hg] [facility] 09-30-2023 14:31-0400 Heart rate 64 /min [facility] 09-30-2023 14:31-0400 Systolic blood pressure 104 mm[Hg] [facility] 09-17-2023 08:00-0400 Blood Pressure Location Roman ORTEGA [facility] 09-17-2023 08:00-0400 Diastolic blood pressure 80 mm[Hg] Roman ORTEGA [facility] 09-17-2023 08:00-0400 Heart rate 64 /min Roman ORTEGA [facility] 09-17-2023 08:00-0400 Systolic blood pressure 132 mm[Hg] Roman ORTEGA [facility] 01-10-2023 09:45-0400 Body height 165.1 cm Savanna Higgins Other [facility] [employer] Other 01-10-2023 09:45-0400 Body mass index (BMI) [Ratio] 20.87 kg/m2 Savanna Higgins Other [employer] Other 01-10-2023 09:45-0400 Body weight 56.88 kg Savanna Higgins Other [employer] Other 01-10-2023 09:45-0400 Diastolic blood pressure 78 mm[Hg] Savanna Higgins Other [employer] Other 01-10-2023 09:45-0400 Systolic blood pressure 142 mm[Hg] Savanna Higgins Other [employer] Other 10-28-2022 08:30-0400 Body height 165.1 cm Savanna Higgins Other [employer] Other 10-28-2022 08:30-0400 Body mass index (BMI) [Ratio] 20.47 kg/m2 Savanna Higgins Other [employer] Other 10-28-2022 08:30-0400 Body weight 55.79 kg Savanna Higgins Other [employer] Other 10-28-2022 08:30-0400 Diastolic blood pressure 47 mm[Hg] Savanna Higgins Other [employer] Other 10-28-2022 08:30-0400 Systolic blood pressure 124 mm[Hg] Savanna Gisela Other [employer] Other Encounters Encounter Date Encounter Type Care Provider Facility Start: 01-28-2025 ambulatory Roman ORTEGA Facili ty:[facility] Start: 01-04-2025 ambulatory Jae Alaniz MD Fa cility:[facility] Start: 11-29-2024 End: 11-29-2024 ambulatory Roman Stephen SHANNON Facility:[facility] Start: 11-29-2024 End: 11-29-2024 Patient encounter procedure Roman ORTEGA [facility] Start: 11-23-2024 End: 11-23-2024 ambulatory POONAM ADAIR Facility:[facility] Start: 11-01-2024 End: 11-01-2024 ambulatory Dulce Cifuentes MD Facility:[facility] Start: 10-14-2024 End: 10-14-2024 ambulatory [facility] Work Phone: Start: 10-14-2024 End: 10-14-2024 Patient encounter procedure [facility] Work Phone: Start: 09-15-2024 End: 09-15-2024 ambulatory [facility] Work Phone: Start: 09-15-2024 End: 09-15-2024 Patient encounter procedure [facility] Work Phone: Start: 08-18-2024 End: 08-18-2024 ambulatory [facility] Work Phone: Start: 08-18-2024 End: 08-18-2024 Patient encounter procedure [facility] Work Phone: Start: 03-16-2024 End: 03-16-2024 ambulatory [facility] Work Phone: Start: 03-16-2024 End: 03-16-2024 Patient encounter procedure [facility] Work Phone: Start: 02-02-2024 End: 02-02-2024 ambulatory Dulce Cifuentes MD Facility:[facility] Start: 01-05-2024 End: 01-05-2024 Bamboo flowsheet Rebeca Hoyt MD Work Phone: [facility] Start: 01-05-2024 End: 01-05-2024 Bamboo flowsheet Rebeca Hoyt MD Work Phone: [facility] Start: 01-05-2024 End: 01-05-2024 ambulatory REBECA HOYT Not Available Start: 12-09-2023 End: 12-09-2023 ambulatory [facility] Work Phone: Start: 12-09-2023 End: 12-09-2023 Patient encounter procedure [facility] Work Phone: Start: 11-18-2023 End: 11-18-2023 ambulatory [facility] Work Phone: Start: 11-18-2023 End: 11-18-2023 Patient encounter procedure [facility] Work Phone: Start: 11-10-2023 Patient encounter procedure [facility] Start: 11-06-2023 End: 11-06-2023 Patient encounter procedure [facility] Work Phone: Start: 10-13-2023 End: 10-13-2023 Patient encounter procedure Roman ORTEGA [facility] Start: 09-30-2023 End: 09-30-2023 ambulatory [facility] Work Phone: Start: 09-30-2023 End: 09-30-2023 Patient encounter procedure [facility] Work Phone: Start: 09-17-2023 End: 09-17-2023 Patient encounter procedure Roman Mitchell ORTEGA [facility] Start: 09-09-2023 Non-patient / Non-visit [facility] [employer] Work Phone: Start: 08-26-2023 End: 08-26-2023 ambulatory [facility] Work Phone: Start: 08-26-2023 End: 08-26-2023 Patient encounter procedure [facility] Work Phone: Start: 03-28-2023 End: 03-28-2023 ambulatory Savanna Higgins Other [employer] Other Start: 03-28-2023 Telephone encounter Savanna Gisela [facility] Start: 01-31-2023 End: 01-31-2023 ambulatory Savanna Higgins Other [employer] Other Start: 01-31-2023 Nursing evaluation o f patient and report Savanna Gisela [facility] Start: 01-14-2023 End: 01-14-2023 ambulatory Savanna Higgins Other [employer] Other Start: 01-14-2023 Telephone encounter Savanna Gisela [facility] Start: 01-10-2023 End: 01-10-2023 ambulatory Savanna Higgins Other [employer] Other Start: 01-10-2023 Office outpatient visit 15 minutes Savanna Gisela [facility] Start: 10-28-2022 End: 10-28-2022 ambulatory Savanna Higgins Other [employer] Other Start: 10-28-2022 Patient encounter procedure Savanna Higgins [facility] Start: 10-24-2022 End: 10-24-2022 ambulatory Savanna Higgins Other [employer] Other Start: 10-24-2022 Telephone encounter Savanna Gisela [facility] Start: 10-08-2022 End: 10-08-2022 ambulatory AJ [...] 12-31-2021 Adult health examination Savanna Higgins Other [employer] Other Start: 12-31-2021 End: 01-01-[address] SAVANNA HIGGINS Facility:[facility] Start: 12-25-2021 End: 12-26-[address] VALENTINA BECKER . Facility:[facility] Start: 12-19-2021 End: 12-20-[address] VALENTINA BECKER . Facility:[facility] Start: 11-07-2021 End: 11-08-[address] SAVANNA HIGGINS Facility:[facility] Start: 03-01-2017 End: 03-01-2017 ambulatory [facility] Facility:[facility] Procedures Date Procedure Procedure Detail Performing Clinician Start: 11-23-2024 Myelogram Roman PONCE Start: 01-05-2024 End: 01-05-2024 Ophth medical xm&eval comprhnsv estab pt 1/> Dry eyes Rebeca Hoyt MD Work Phone: Comment on above: Dry eyes (Primary Dx ); PCO (posterior capsular opacification), bilateral Start: 02-28-2014 right cataract extra ction with intraocular lens implantation Roman ORTEGA Cataract extraction and insertion of intraocular lens Roman ORTEGA Comment on above: left eye cervical herniated d isc removed Roman ORTEGA Excision of bunion Roman Milan ОЛЕГNELIA Comment on above: bilateralwillard Hysterectomy and giancarlo ateral salpingo-oophorectomy sample (specimen) Roman ORTEGA Screening for malign ant neoplasm of breast Savanna Gisela Other stapidectomy 3 Roman Rothman Comment on above: right ear Plan of Treatment Date Care Activity Detail Author Start: 10-14-2024 Patient referral [facility] Work Phone: Start: 09-15-2024 Patient referral [facility] Work Phone: Start: 01-11-2024 Influenza vaccination Influenza Vacc ine (#1) [facility] Start: 01-05-2024 End: 01-05-2024 Patient encounter procedure 01/05/2024 2:00 PM EDT Office Visit [facility] [address] [place] [address] Rebeca Hoyt MD [address] [place] [address] Arrived [facility] Comment on above: Arrived Start: 03-10-2019 Pneumococcal Vaccine : 65+ Years (2 of 2 - PPSV23 or PCV20) Pneumococcal Vaccine: 65+ Years (2 of 2 - PPSV23 or PCV20) [facility] Diagnostic radiograp hy of abdomen [facility] MG Breast - bilatera l Screening [facility] Patient Education Low back pain in adults [facility] Work Phone: Patient referral [facility] Work Phone: [facility] Immunizations Immunization Date Immunization Notes Care Provider Melchor dawkins 03-16-2024 influenza, high dose seasonal, preservative-free [facility] 02-14-2023 influenza virus vaccine, unspecified formulation Roman ORTEGA [facility] 03-12-2022 SARS-CoV-2 (COVID-19 ) [id number] Roman ORTEGA [facility] Comment on above: Result Comment: 2023: [id number] 02-28-2022 influenza virus vaccine, split virus (incl. purified surface antigen) Savanna Higgins Other [employer] Other 02-28-2022 influenza virus vaccine, unspecified formulation [facility] 11-09-2021 SARS-CoV-2 (COVID-19 ) mRNA-1273 vaccine Roman ORTEGA [facility] Comment on above: Result Comment: 2023: [id number] 03-08-2021 SARS-CoV-2 (COVID-19 ) mRNA-1273 vaccine Roman ORTEGA [facility] 02-27-2021 influenza virus vaccine, split virus (incl. purified surface antigen) Savanna Higgins Other [employer] Other 02-27-2021 influenza virus vaccine, unspecified formulation [facility] 06-29-2020 SARS-CoV-2 (COVID-19 ) mRNA-1273 vaccine Roman ORTEGA [facility] 06-01-2020 SARS-CoV-2 (COVID-19 ) mRNA-1273 vaccine Roman ORTEGA [facility] 03-14-2020 zoster vaccine recombinant Roman ORTEGA [facility] 02-16-2020 influenza virus vaccine, split virus (incl. purified surface antigen) Savanna Higgins Other [employer] [facility] [employer] Other 02-16-2020 influenza virus vaccine, unspecified formulation [facility] 10-25-2019 pneumococcal polysaccharide vaccine, 23 valent Savanna Higgins Other [facility] 01-25-2019 influenza virus vaccine, unspecified formulation Roman ORTEGA [facility] 03-10-2018 pneumococcal conjuga te vaccine, 13 valent Savanna Higgins Other [facility] 02-14-2018 influenza virus vaccine, unspecified formulation Roman ORTEGA [facility] 01-08-2017 influenza virus vaccine, split virus (incl. purified surface antigen) Savanna Higgins Other [employer] Other 01-08-2017 influenza virus vaccine, unspecified formulation [facility] 02-06-2016 influenza virus vaccine, split virus (incl. purified surface antigen) Savanna Higgins Other [employer] [facility] [employer] Other 02-06-2016 influenza virus vaccine, unspecified formulation [facility] 03-24-2015 influenza virus vaccine, split virus (incl. purified surface antigen) Savanna Higgins Other [employer] Other 03-24-2015 influenza virus vaccine, unspecified formulation [facility] 02-26-2013 tetanus and diphther ia toxoids, adsorbed, preservative free, for adult use (5 Lf of tetanus toxoid and 2 Lf of diphtheria toxoid) Savanna Higgins Other [facility] Payers Date Payer Category Payer Private Health Insurance [id number] 2024 Private Health Insurance 2022 Medicare [id number] 2017 Self-pay 1960 Medicare [id number] 1940 Unknown [id number] 2.16.84 0.1.262066.3.579.2.593 1939 Unknown [id number] 2.16.84 0.1.318887.3.579.2.593 1939 Unknown [id number] 2.16.84 0.1.846893.3.579.2.593 1939 Unknown [id number] 2.16.84 0.1.125743.3.579.2.593 1939 Unknown [id number] 2.16.84 0.1.444752.3.579.2.593 1939 Unknown [id number] 2.16.84 0.1.478390.3.579.2.593 1939 Unknown [id number] 2.16.84 0.1.141802.3.579.2.593 1939 Unknown [id number] 2.16.84 0.1.235953.3.579.2.593 1939 Unknown [id number] 2.16.84 0.1.386156.3.579.2.593 1939 Unknown [id number] 2.16.84 0.1.815591.3.579.2.593 1939 Unknown [id number] 2.16.84 0.1.138725.3.579.2.593 1939 Unknown [id number] 2.16.84 0.1.600439.3.579.2.593 1939 Unknown [id number] 2.16.84 0.1.673058.3.579.2.1259 1939 Unknown [id number] 2.16.8 40.1.117772.3.579.2.727 1939 Unknown [id number] 2.16.8 40.1.559071.3.579.2.727 1939 Unknown [id number] 2.16.8 40.1.714905.3.579.2.727 1939 Unknown [id number] 2.16. 840.1.107089.3.579.2.196 1939 Unknown [id number] 2.16. 840.1.604049.3.579.2.196 1939 Unknown [id number] 2.16. 840.1.730621.3.579.2.196 Private Health Insurance [id number] [id number] Unknown [id number] 2.16.8 40.1.191480.3.579.2.531 Social History Date Type Detail Facility Unknown if ever smoked [employer] Other Sex Assigned At [facility] Start: 1940 Sex Assigned At Female F [facility] Start: 09-17-2023 End: 10-13-2023 Tobacco smoking status Never smoked tobacco (finding) [facility] Tobacco smoking status Never [facility] Start: 1940 Sex assigned at Not on file N [facility] Tobacco smoking stat RUSTIS Unknown if ever smoked [facility] Work Phone: Start: 12-21-2009 End: 08-18-2024 Sex Female (finding) [facility] Sexual Orientation [facility] Functional Status Date Assessment Result Facility 10-13-2023 Functional Status N/A [facility] 09-17-2023 Functional Status N/A [facility] Clinical Notes 12-19-2021 to 08-18-2024 Note Date & Type Note Facility 08-18-2024 Evaluation note Diagnosis Onset Date Resolution Seasonal allergic rhinitis acute August 18, 2024 11:44am [facility] Work Phone: 1(699) 648-452204-09-2025 Evaluation note* Diagnosis Onset Date Resolution Status Admit Date Seasonal allergic rhinitis acute August 18, 2024 11:44am Lumbar back pain acute September 15, 2024 8:13am Lumbar back pain acute October 9:56am [facility] Work Phone: 1(418) 327-598208-26-2024 History of Present illness Narrative* Rebeca Hoyt MD - 01/05/2024 2:00 PM EDT Assessment/Plan Dry Eyes OU -- Environmental changes to minimize dryness and exposure and the use of artificial tears were recommended. [id number] Hospital Discharge instructions Patient Education 10/13/2023 13:39:08 Kidney Stones, Aiar-sg-Paby Kidney Stones Kidney stones are rock-like masses [...] Follow these instructions at home: Medicines Take wldr-rou-nsnuyft and prescription medicines only as told by [...] provider. Document Revised: 12/31/2021 Document Reviewed: 12/31/2021 MD [employer] Patient Education 2022 [email or web address]. Follow Up Care 09/17/2023 08:40:02 With:SHANNON SALGUERO, Roman Mitchell, URL Address: [facility] [address] [place] [address] [phone] When: Unknown [facility] Hospital Discharge instructions Patient Education 09/17/2023 [...] Follow these instructions at home: Medicines Take kjrb-kbo-qmpuucf and prescription medicines only as told by [...] provider. Document Revised: 08/07/2022 Document Reviewed: 08/07/2022 MD [employer] Patient Education 2022 [email or web address]. Follow Up Care 09/11/2023 08:49:49 With:SHANNON SALGUERO, Roman Mitchell, URL Address: [facility] [address] [place] [address]- When: Unknown [facility] 09-22-2023 Evaluation note* Encounter Date Diagnosis Assessment Notes Treatment Notes Treatment Clinical Notes Jan, Seasonal allergic rhinitis, unspecified trigger (ICD-10 - J30.2) [employer] Other 09-01-2023 Evaluation note* Encounter Date Diagnosis Assessment Notes Treatment Notes Treatment Clinical Notes Jan, Piriformis syndrome of left side (ICD-10 - G57.02) Unable to add more tramadol - likely has pain clinic w [facility]. PT order printed. Add steroids. Also gave copies of home exercises. [employer] Other 06-19-2023 Evaluation note* Encounter Date Diagnosis [...] - order handwritten and given to pt [employer] Other 04-27-2023 NoteCONSULTATION CONSULTATION DATE: 09/05/2022 TO: [...] our patients to inform us about any hhxx-uyu-fuebjmo medications or herbal remedies/nutritional supplements/alternative remedies. 2. [...] with their primary care provider.[id number] Note CONSULTATION PROCEDURE DATE: 12/25/2021 PREOPERATIVE DIAGNOSIS: [...] of motion exercises are performed.[facility] 12-19-2021 NoteCONSULTATION CONSULTATION DATE: 12/19/2021 This is [...] where she was seen by the physician wellness assistant in the office and received left [...] the plan of care, to be contacted [facility] Future Appointments Appointment Date:10/13/2023 12:15:00 PM Scheduled Provider:Roman ORTEGA MD Location:[facility] Appointment Type:URO Office Visit [facility] Evaluation + Plan note Future Appointments Appointment Date:01/28/2025 10:15:00 AM Scheduled Provider:Roman ORTEGA MD Location:[facility] Appointment Type:URO Office Visit [facility] evaluation noteNo InformationNortEncompass Health [employer] Other Evaluation noteNo assessment information available [facility] Work Phone: Evaluation note* Diagnosis Onset Date Resolution Status Right lumbar pain acute [facility] Work Phone: Evaluation note* Diagnosis Onset Date Resolution Status Right lumbar pain acute Medicare annual wellness visit, subsequent acute Nephrolithiasis acute Screening mammogram for breast cancer acute [facility] Work Phone: Evaluation note* Diagnosis Onset Date Resolution Status Right lumbar pain acute Medicare annual wellness visit, subsequent acute Nephrolithiasis acute Screening mammogram for breast cancer acute Laceration of left lower leg without complication acute Lumbar back pain acute [facility] Work Phone: Evaluation note* Diagnosis Dry eyes- Primary 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), bilateral Unspecified after-cataract documented [facility] - Reported* Type Description Date Medical History migraine headache Medical History dizziness Medical History tremors Surgical History hysterectomy Surgical History bunionectomy Surgical History stapedectomy Hospitalization History see above [facility] [place] [facility] Other Hospital course Narrative No data available for this section [facility] Hospital Discharge instructionsAmbulatory Orders* Referral to PT / OT / Speech (PT/OT/SP) Location: None Selected [facility] Work Phone: Hospital Discharge instructionsAmbulatory Orders* Referral to Orthopedic Surgery Location: None Selected [facility] Work Phone: Hospital Discharge instructions No data available for this section [facility] progress note No data available for this section [facility] Summary Purpose Family History No Family [...] 11:4 4am fu [place] September 15, 2024 8:13am Reason for Visit Admit Date Seasonal allergic rhinitis August 18 11:44am Chief Complaint Admit Date Allergy Shot August 18, 2024 11:4 4am fu [place] September 15, 2024 8:13am back pain October 14, 2024 9:56a m Reason for Visit Admit Date Seasonal allergic rhinitis August 18 11:44am Lumbar back pain September 15, 2024 8:13am Lumbar back pain October 14, 2024 9:56a m Additional Source Comments INFORMATION SOURCE (unrecogn ized section and content) DATE CREATED AUTHOR 10/18/2022 [facility] DATE CREATED AUTHOR AUTHOR'S ORGANIZ ATION 01/06/2024 [facility] EPIC DATE CREATED AUTHOR AUTHOR'S ORGANIZ ATION 09/19/2024 [facility] DATE CREATED AUTHOR AUTHOR'S ORGANIZ ATION 12/01/2024 [facility] DATE CREATED AUTHOR AUTHOR'S ORGANIZ ATION 12/25/[address] [facility] REASON FOR VISIT (unrecogniz ed section [...] March 16, 2024 End: March 16, 2024 Food Safety Coordinator Relationship Specialty Start Date End Date Valeriy Higgins MD [address] [place] [phone] PCP - General 12/25/22 Food Safety Coordinator Relationship Specialty Start Date End Date Valeriy Higgins MD [address] [place] [phone] PCP - General 12/25/22 Team Status: Inactive [...] ON THE PRIMARY CLINICAL RECORDS. [facility] [employer] [facility]. provides no warranty or guarantee of the accuracy or completeness of information in this document.
--- OUTSIDE RECORDS SUMMARY | 2024-12-28 07:29 | XMS_ITS | Patient Health Record ---
Author Organization [facility] Address [address] [place] [address] Care Team Providers Care Administrative Dietitian Name Role Phone Savanna Guajardo M.D. Primary Care Provider Unavail able Jae Alaniz Unavailable [phone] Mark Lemus Unavailable [phone] Allergies No Known Allergies Results Component Value Reference Range Notes Surgery Scheduling (Not yet reviewed by provider) Interpretation: Performing Lab: Notes/Report: Primary Insurance Company: MEDICARE [employer]ET[employer] Surgeon/Assist: ST SCHAFER/PB OR MARK Surgery Location: [facility] Surgery Date & Time: 01/04/25 @ 12:30PM Hosp arrival time day of: 10:30AM Surgery End Time: 3:30PM Procedure: L2-S1 DECOMPRESSION AND FUSION, L5-S1 TLIF Special Equipment: SSEP, CELL SAVER, IN ONE, BHARATH TABLE, SURGALIGN Diagnosis: M48.062 STENOSIS Admission Type: INPATIENT Anesthesia Type/CPNB: GENERAL Post-op Appointment Date: 02/17/25 @ 10:10AM ANDREW Lab Location: [facility] Lab Date/Time: LARISA Top Lift Scourer: CASSIDY Sanchez Physician: GISELA Sanchez Appt Date/T @ 2:30PM History & Physical Appointme nt Date/: 12/31/24 @ 9:50AM ANDREW Reason For Referral Reason APPROVED............ .............NOT SCHEDULED.............................AETNA [facility] myelogram lumbar spine at [facility] Diagnosis 1 Lumbar pain (M54.50) Diagnosis 2 Degenerative scolios is (M41.50) Referral Organization [facility] Referring Provider First Name Jae Referring Provider Last Name St Schafer Referring Provider Speciality Orthopedic Surgery Referred Organization [facility] Referred Address [address] [place],[address],[place] Procedure 1 CT lumbar spine; W/ contrast material (76252) General Notes Baylee Aponte 10/10 11:00:03 AM >, Lori Kumari 10/22/2024 11:04:40 AM > WAITING ON TODAY'S OFFICE NOTE, Lori Kumari 10/26/2024 09:33:55 AM > AUTHORIZATION # [id number] APPROVED AND VALID 10/26/24-04/24/25 PER BONNY. SCANNED INTO CHART AND FAXED TO FACILITY., Baylee Aponte 10/26/2024 01:57:35 PM > faxed to [facility]- [phone] Referral Priority Routine Reason PENDING OUTPATIENT...................................01/04/25............................ .......AETNA MCR L2-S1 DECOMPRESSION AND FUSION , L5-S1 TLIF 52638, 84379, 20534 x3, 30140, 12272 x2, 05587, 70465, 58848 Diagnos is 1 Degenerative scoliosis (M41.50) Diagnos is 2 Lumbar stenosis with neurogenic claudica tion (M48.062) Diagnos is 3 Scoliosis of lumbar spine, unspecified s coliosis type (M41.9) Referra l [facility] Referri ng Provide r First Name Jae tang Provide r Last Name St Kim tang Provide r Special ity Orthopedic Surgery Referre d [facility] Referre d Address [address] [place], [place],[address] 214,[place] Procedu re 1 Arthrodesis, PLIF w/ PSF including karli ectomy and/or discectomy, sufficient to prepare interspace (other than for decompression), single interspace and segment; lumbar (98179) Procedu re 2 GARCIA FACETC/FRMT ARTHRD LUM 1 (99198) Procedu re 3 Arthrodesis single, each addn'l level, p osteriolateral technique (51643) Procedu re 4 Laminectomy, facetectomy and foraminotom y single lumbar (54903) Procedu re 5 Laminectomy, facetectomy and foraminotom y additional vertebral segment (19312) Procedu re 6 Posterior segmental instrumentation, 3 t o 6 segments (19132) Procedu re 7 INSJ BIOMECHANICAL DEVICE (97804) Procedu re 8 Autograft for spine surgery only; local obtained from same incision (99330) General Notes Cassidy Stephens 12/23/2024 01:18:19 PM >, Lori Kumari 12/23/2024 03:09:24 PM > AUTHORIZATION REQUEST SUBMITTED OUTPATIENT VIA AVAILITY WITH CLINICALS AND AETNA SPINE FORM, PENDING AUTHORIZATION # [id number]. TURN AROUND TIME IS 14 DAYS. Referra [...] Problem Status W/U Status Risk Notes Problem 341572435 Scoliosis of lumbar spine, unspecified scoliosis type (M41.9) Active confirmed Problem 15897236 Lumbar stenosis with neurogenic claudication (M48.062) Active confirmed Problem 606985781 Degenerative scoliosis (M41.50) Active confirmed Vital Signs Height 5'5 in 10/22/2024 Weight 125 lbs 10/22/2024 BMI 20.8 10/22/2024 Procedures Procedure Date Ordered Date Performed Result Body Sit e EKG 12/17/2024 N/A Encounters Encounter Location Date Provider Diagnosis [facility] [address] [place] [phone] 12/17/2024 Selvon Corbin Lumbar stenosis with neurogenic claudication M48.062 and Scoliosis of lumbar spine, unspecified scoliosis type M41.9 [facility] [address] [place] [phone] 10/22/2024 Mark Diglio Lumbar pain M54.50 ; [...] limited efficacy) - Consider scheduling surgery at [facility] or [facility] based on availability - Provide patient education [...] Name Order Date Chest 2 views - 81646 12/17/2024 Lumbar spine, 4v flex ext - 38354 2024 CBC 12/17/2024 PT/PTT 12/17/2024 BMP 12/17/2024 Surgery Scheduling 12/23/2024 MRSA (Bilateral Nares) PCR 12/17/2024 EKG 12/17/2024 CT Myelogram - Lumbar Spine 10/22/2024 Next Appt Details Provider Name:Jae Doran Cl air, 12/31/2024 09:50:00 AM, [address] [place] [address], [phone], Provider Name:Jae Dooley St Cl air, 01/04/2025 12:30:00 PM, [address] [place], [place], [phone], Provider Name:Jae Doran Cl air, 02/17/2025 10:10:00 AM, [address] [place] [address], [phone], Insurance Providers Payer Name Payer Address Payer Phone Subscriber Number Group Number Insured Name Patient Relationship to Insured Coverage Start Date Coverage End Date Medicare [employer] [address] [place] [address] [id number] EDUARDO LEA Self - patient is the insured 5 Medical (General) History Medical History History ICD Code Kidney stones - Degenerative scoliosis - Spinal arthritis with bone spurs Surgical History Surgery Date(Month/Year) Bunionectomy 09/18/1995 Disc removed 08/14/1984
--- NOTE | 2024-12-28 07:55 | XR_ITS ---
The [address] [address] Patient Name: EDUARDO LEA MRN: [id number] date: 1940 Sex: F Assigned Patient Location: LAB Current Patient Location: LAB Accession/Order Number: [id number] Exam Date: 12/28/2024 11:26 Report Date: 12/28/2024 11:27 At the request of: NATASHA MORROW MD Procedure: XR chest 2V PA AND LATERAL CHEST: CLINICAL HISTORY: Pre Operative Evaluation COMPARISON: None FINDINGS: Mildly enlarged cardiomediastinal silhouette. Lungs are clear. No effusion or pneumothorax. XR/XR chest 2V IMPRESSION: NO ACUTE CARDIOPULMONARY ABNORMALITY. Impression dictated by: Frank Ervin M.D. 12/28/2024 11:27 AM Dictation Location: [place] [address] Electronically authenticated by: [id number] Y Date: 12/28/2024 11:27
[2024-12-28 08:15] LABS: Hematocrit 40.2 % (36.0-48.0); Hemoglobin 13.1 g/dL (12.0-16.0); Immature Granulocytes Abs Auto 0.01 10^3/uL (0.00-0.03); Immature Granulocytes Pct Auto 0.2 % (0.0-0.5); Lymphocytes Absolute Auto 1.3 10^3/uL (1.2-3.8); Mean Corpuscular HGB Conc 32.6 g/dL (29.9-35.2); Mean Corpuscular Hemoglobin 31.6 pg (26.7-34.0); Mean Corpuscular Volume 97.1 fL (81.0-99.0); Platelet Count 212 10^3/uL (150-450); Red Blood Count 4.14 10^6/uL (4.20-5.40); White Blood Count 4.7 10^3/uL (4.0-11.0)
[2024-12-28 08:26] LABS: INR 1.02; Partial Thromboplastin Time 26.7 sec (22.3-36.2); Prothrombin Time 10.8 sec (9.0-11.6)
[2024-12-28 08:52] LABS: Anion Gap 10.9; Blood Urea Nitrogen 13.0 mg/dL (7.0-18.0); Calcium 9.2 mg/dL (8.5-10.1); Carbon Dioxide 30.9 mmol/L (21.0-32.0); Chloride 104 mmol/L (98-107); Estimated GFR (African America >60 (>=60 mL/min/1.73m^2); Estimated GFR (Non-African Ame >60 (>=60 mL/min/1.73m^2); Glucose 91 mg/dL (74-106); Potassium 3.8 mmol/L (3.5-5.1); Sodium 142 mmol/L (136-145)
== END 2024-12-28 07:24 | disposition home or self-care (01) ==
PROVIDERS: PCP Family Medicine; Visit Provider Orthopaedic Surgery Orthopaedic Surgery of the Spine
DX: Z01.810 Encounter for preprocedural cardiovascular examination (principal); M48.062 Spinal stenosis, lumbar region with neurogenic claudication
CPT/HCPCS: 36415; 71046; 80048; 85025; 85610; 85730; 87081

== ENCOUNTER 2025-01-03 06:47 | Outpatient (OUT) | payer MEDICARE, SELFPAY ==
--- OUTSIDE RECORDS SUMMARY | 2025-01-03 06:50 | XMS_ITS | CCD ---
Author Organization [facility] Care Team Providers Care Top Knitter Name Role Phone GISELA, DR SAVANNA Willis [...] Unavailable GISELA, DR SAVANNA Willis Attending Unavailable [place], DR MINE [employer] Unavailable GISELA, DR [...] DR VALENTINA Rothman Attending Unavailable GISELA, DR ASVANNA Willis Primary Care Unavailable ROSITA ., DR [...] ORTEGA Attending Unavailable Roman ORTEGA Attending Unavailable MANA POONAM Referring Unavailable DIGRHYS POONAM Admitting Unavailable MANA POONAM Attending Unavailable Savanna Higgins MD Primary Care Provider Savanna Higgins MD Attending Provider Jae Fuentes MD Attending Provider [phone] Savanna Higgins MD [facility] Care Unava ilable Jae Alaniz MD Attending Unavailverena Cifuentes MD, Dulce Cooper Attending Unavailable Vane SALGUERO, Dulce Cooper Attending Unavailable Jae Alaniz MD Attending UnavailSavanna Dempsey MD [facility] Unava ilable Allergies Allergy Classification Reported Allergen(s) Allergy Type Date of Onset Reaction(s) Facility (1 source) No Known Medication Allergies; Translations: [No Known Medication Allergies] Propensity to adverse reactions to drug (disorder) [facility] Repository Medications Current Medications Medication Drug Class(es) Dates Sig (Normalized) Sig (Original) atenolol 50 mg oral tablet (20 sources) beta-Adrenergic Tera Start: 03-30-2024 End: 08-18-2024 take 1 tablet by mouth once daily Atenolol 50 mg tablet Active 0 .ROUTE .COMPLEX 90 August 18, 2024 8:43am TAKE 1 TABLET BY MOUTH EVERY DAY FOR 90 DAYS Complies with drug therapy Start: 09-28-2022 End: 03-30-2024 take 1 tablet [...] Start Date: 09/17/23 Status: Ordered Fish Oils (3 sources) Start: 02-19-2010 take 1 tablet by christian th once daily [place]-3 Fish Oil 1 tab, Oral, Daily, Refill(s) 0, Prophylaxis Start Date: 02/19/10 Status: Ordered Repeat number: 1 Start: 02-19-2010 take 1 tablet by christian th once daily [place]-3 Fish Oil 1 tab, Oral, Daily, Refill(s) [...] Start: 02-19-2010 take 1 capsule by mo [facility] once daily Multiple Vitamins oral capsule 1 [...] mg oral tablet (5 sources) Start: 01-11-20 take 2 tablets by mouth every twenty-four [...] Date: 09/17/23 Stop Date: 10/17/23 Status: Ordered traMADol hydrochloride 50 mg oral tablet (7 [...] Class(es) Dates Sig (Normalized) Sig (Original) diclofenac sodium 50 mg delayed release oral tablet (20 sources) Nonsteroidal Anti-inflammatory Drug Start: 04-05-2024 End: 12-28-2024 take 1 tablet by mouth twice daily Diclofenac Sodium 50 mg tablet,delayed release (DR/EC) Discontinued 50 MG PO Twice daily April 05, 2024 1:00am December 28, 2024 2:41pm Start: 10-02-2023 End: 10-02-2023 take 1 tablet [...] needed Orally Four times a day Active meloxicam 7.5 mg oral tablet (16 sources) Nonsteroidal Anti-inflammatory Drug Start: 10-02-2023 End: 11-25-2024 take 1 tablet by mouth once daily Meloxicam 7.5 mg tablet Discontinued 7.5 MG PO Daily November 18, 2023 11:23am April 05, 2024 11:24am methylPREDNISolone 4 mg oral tablet (10 sources) Corticosteroid Start: 10-14-2024 End: 12-28-2024 Methylprednisolone 4 mg tablets,dose pack Discontinued 0 PO per package directions October 14, 2024 12:00am December 28, 2024 2:41pm PO PER PKG DIR for 6 days Start: 09-30-2023 End: 04-05-2024 take 1 tablet by mouth once Methylprednisolone (Medrol (Herb)) 4 mg tablets,dose pack Discontinued 0 PO per package directions September 30, 2023 12:00am April 05, 2024 11:23am PO PER PKG DIR for 6 days 24 hr metoprolol succinate 25 mg extended release oral capsule (16 sources) beta-Adrenergic Tera Start: 09-29-2023 End: 09-30-2023 take 1 capsule by mouth once daily Metoprolol Succinate 25 mg capsule,archie,ER 24hr Discontinued 25 MG PO Daily September 29, 2023 12:00am September 30, 2023 2:41pm Metoprolol Succi olena 25 MG 1 tablet once a day Active mupirocin 0.02 mg/mg topical ointment (8 sources) RNA Synthetase Inhibitor Antibacterial Start: 11-18-2023 End: 04-05-2024 Mupirocin 2 % ointment Discontinued 1 APPLIC TOPICAL Twice daily November 18, 2023 12:00am April 05, 2024 11:43am tiZANidine 4 mg oral tablet (19 sources) Central alpha-2 Adrenergic Agonist Start: 05-03-2024 End: 12-28-2024 take 1 tablet by mouth once daily at bedtime as needed Tizanidine 4 mg tablet Discontinued 4 MG PO Daily at bedtime as needed for muscle spasticity May 03, 2024 5:19pm December 28, 2024 2:41pm Start: 04-05-2024 End: 04-21-2024 take 1 tablet [...] 30, 2023 12:00am April 05, 2024 11:23am triamcinolone acetonide 40 mg/ml injectable suspension (10 sources) Corticosteroid Start: 09-25-2022 Kenalog-40 Jan, 60 mg Problems Active Problems Problem Classification Problem Date Documented Date Episodic/Chronic Calculus of urinary tract (20 sources) Ureteric stone; Translations: [Calculus of ureter] [...] Onset: 10-02-2022 Episodic Open wounds of extremities (8 sources) Laceration of left lower leg; Translations: [Laceration without foreign body, left lower leg, initial encounter] 12-03-2023 Episodic Open wounds of extremities (2 sources) Tear of skin; Translations: [Laceration without foreign body, right lower leg, initial encounter] 10-14-2024 Episodic Osteoarthritis (1 source) Primary osteoarthritis, left [...] conditions (not mental disorders or infectious disease) (17 sources) Encounter for screening mammogram for malignant neoplasm of breast; Translations: [Patient encounter status] Onset: 11-07-2021 Episodic Other skin disorders (5 sources) Actinic keratosis; Translations: [Actinic keratosis] Episodic Other upper respiratory disease (14 sources) Seasonal allergic rhinitis; Translations: [Other seasonal [...] Test Name Value Interpretation Reference Range Facility Activated partial thrombopla stin time (aPTT) in platelet poor plasma by coagulation aOrdered By: Jae Alvarez on 12-28-2024 aPTT Coag (PPP) [Time] 26.7 s 22.3-36.2 [facility] Basophils Auto (Bld) [#/Vol] Ordered By: Jae Alvarez on 12-28-2024 Basophils (Bld) [#/Vol] 0.0 10 3/uL 0.0-0.1 [facility] Basophils/100 WBC Auto (Bld) Ordered By: Jae Alvarez on 12-28-2024 Basophils/100 WBC (Bld) 0.4 % 0.2-2.0 [facility] Eosinophils/100 WBC Auto (Bl d)Ordered By: Jae Alvarez on 12-28-2024 Eosinophils/100 WBC (Bld) 3.0 % 0.9-7.0 [facility] Erythrocyte distribution wid th Auto (RBC) [Ratio]Ordered By: Jae Alvarez on 12-28-2024 Erythrocyte distribution width (RBC) [Ratio] 12.4 % 11.0-15.0 [facility] Glomerular filtration rate ( GFR) estimation in non- AmericanOrdered By: Jae Alvarez on 12-28-2024 GFR/1.73 sq M.predicted among non-blacks MDRD (S/P/Bld) [Vol rate/Area] mL/min/{1.73_m2} >=60 mL/min/1.73m 2 [facility] Hematocrit Auto (Bld) [Volum e fraction]Ordered By: Jae Alvarez on 12-28-2024 Hematocrit (Bld) [Volume fraction] 40.2 % 36.0-48.0 [facility] Hemoglobin [Mass/volume] in BloodOrdered By: Jae Alvarez on 12-28-2024 Hemoglobin (Bld) [Mass/Vol] 13.1 g/dL 12.0-16.0 [facility] INR in Platelet poor plasma by Coagulation assayOrdered By: Jae Alvarez on 12-28-2024 INR Coag (PPP) [Relative time] 1.02 {INR} [facility] Comment on above: DESIRED INR:2.0-3.0 CONDITIONS NOT LISTED BELOW2.5-3.5 FOR PROSTHETIC HEART VALVE REPLACEMENT2.5-3.5 RECURRENT THROMBOSIS Laboratory - Chemistry and C hemistry - challengeOrdered By: Jae Alvarez on 12-28-2024 Calcium [Mass/Vol] 9.2 mg/dL 8.5-10.1 [facility] Chloride [Moles/Vol] 104 mmol/L 98-107 [facility] CO2 [Moles/Vol] 30.9 mmol/L 21.0-32.0 [facility] Creatinine [Mass/Vol] 0.87 mg/dL 0.55-1.02 [facility] GFR/1.73 sq M.predicted MDRD (S/P/Bld) [Vol rate/Area] mL/min/{1.73_m2} >=60 mL/min/1.73m 2 [facility] Glucose [Mass/Vol] 91 mg/dL 74-106 [facility] Potassium [Moles/Vol] 3.8 mmol/L 3.5-5.1 [facility] Sodium [Moles/Vol] 142 mmol/L 136-145 [facility] Urea nitrogen [Mass/Vol] 13.0 mg/dL 7.0-18.0 [facility] Urea nitrogen/Creatinine [Mass ratio] 14.9 mg/mg [facility] Laboratory - Hematology and Cell countsOrdered By: Jae Alvarez on 12-28-2024 Immature granulocytes/100 WBC (Bld) 0.2 % 0.0-0.5 [facility] Leukocytes [#/volume] correc bill for nucleated erythrocytes in Blood by Automated counOrdered By: Selvon Kim on 12-28-2024 WBC corrected for nucl RBC Auto (Bld) [#/Vol] 4.7 10 3/uL 4.0-11.0 [facility] Lymphocytes Auto (Bld) [#/Vo l]Ordered By: Selvon Kim on 12-28-2024 Lymphocytes (Bld) [#/Vol] 1.3 10 3/uL 1.2-3.8 [facility] Lymphocytes/100 WBC Auto (Bl d)Ordered By: Selvon Kim on 12-28-2024 Lymphocytes/100 WBC (Bld) 27.4 % 20.5-60.0 [facility] MCH Auto (RBC) [Entitic mass ]Ordered By: Selvon Kim on 12-28-2024 MCH (RBC) [Entitic mass] 31.6 pg 26.7-34.0 [facility] MCHC Auto (RBC) [Mass/Vol]Or dered By: Selvon Kim on 12-28-2024 MCHC (RBC) [Mass/Vol] 32.6 g/dL 29.9-35.2 [facility] MCV Auto (RBC) [Entitic vol] Ordered By: Selvon Kim on 12-28-2024 MCV (RBC) [Entitic vol] 97.1 fL 81.0-99.0 [facility] Monocytes Auto (Bld) [#/Vol] Ordered By: Selvon Kim on 12-28-2024 Monocytes (Bld) [#/Vol] 0.6 10 3/uL 0.3-0.8 [facility] Monocytes/100 WBC Auto (Bld) Ordered By: Selvon Kim on 12-28-2024 Monocytes/100 WBC (Bld) 13.4 % High 1.7-12.0 [facility] Neutrophils Auto (Bld) [#/Vo l]Ordered By: Selvon Kim on 12-28-2024 Neutrophils (Bld) [#/Vol] 2.6 10 3/uL 1.4-6.5 [facility] Neutrophils/100 WBC Auto (Bl d)Ordered By: Jae Alvarez on 12-28-2024 Neutrophils/100 WBC (Bld) 55.6 % 43.0-75.0 [facility] No Panel InformationOrdered By: Jae Alvarez on 12-28-2024 Eosinophils # (Auto) 0.1 10 3/uL 0.0-0.7 [facility] Immature Granulocyte # (Auto) 0.01 10 3/uL 0.00-0.03 [facility] Platelet mean volume Auto (B ld) [Entitic vol]Ordered By: Jae Alvarez on 12-28-2024 Platelet mean volume (Bld) [Entitic vol] 10.1 fL 9.5-13.5 [facility] Platelets Auto (Bld) [#/Vol] Ordered By: Jae Alvarez on 12-28-2024 Platelets (Bld) [#/Vol] 212 10 3/uL 150-450 [facility] Prothrombin time (PT)Ordered By: Jae Alvarez on 12-28-2024 PT Coag (PPP) [Time] 10.8 s 9.0-11.6 [facility] RBC Auto (Bld) [#/Vol]Ordere d By: Jae Alvarez on 12-28-2024 RBC (Bld) [#/Vol] 4.14 10 6/uL Low 4.20-5.40 [facility] Serum or plasma anion gap de terminationOrdered By: Jae Alvarez on 12-28-2024 Anion gap [Moles/Vol] 10.9 mmol/L [facility] CT Spine Lumbar w/ Contrasto n 11-23-2024 [...] MD Transcribed by: DIOGO Technologist: ASHUTOSH Yao [facility] XR Myelography Lumbosacralon 11-23-2024 XR Myelography Lumbosacral [...] Schulte MD Transcribed by: DIOGO Technologist: GENO Normal [facility] Basophils Auto (Bld) [#/Vol] on 09-09-2023 Basophils (Bld) [#/Vol] 0.0 10 3/uL 0.0-0.1 [facility] Basophils/100 WBC Auto (Bld) on 09-09-2023 Basophils/100 WBC (Bld) 0.4 % 0.2-2.0 [facility] Casts typing in urine sedime nt by light microscopyon 09-09-2023 Casts LM Nom (Urine sed) NONE SEEN #/LPF NONE S EEN [facility] Eosinophils/100 WBC Auto (Bl d)on 09-09-2023 Eosinophils/100 WBC (Bld) 1.1 % 0.9-7.0 [facility] Erythrocyte distribution wid th Auto (RBC) [Ratio]on 09-09-2023 Erythrocyte distribution width (RBC) [Ratio] 13.0 % 11.0-15.0 [facility] Estimated glomerular filtrat ion rate (GFR) non- Americanon 09-09-2023 GFR/1.73 sq M.predicted among non-blacks MDRD (S/P/Bld) [Vol rate/Area] 52 mL/min/{1.73_m2} Low >=60 [facility] Globulin Calc (S) [Mass/Vol] on 09-09-2023 Globulin (S) [Mass/Vol] 3.5 g/dL [facility] Hematocrit Auto (Bld) [Volum e fraction]on 09-09-2023 Hematocrit (Bld) [Volume fraction] 39.0 % 36.0-48.0 [facility] Hemoglobin [Mass/volume] in Bloodon 09-09-2023 Hemoglobin (Bld) [Mass/Vol] 12.6 g/dL 12.0-16.0 [facility] Laboratory - Chemistry and C hemistry - challengeon 09-09-2023 Albumin [Mass/Vol] 3.6 g/dL 3.4-5.0 [facility] ALP [Catalytic activity/Vol] 74 U/L 46-116 [facility] ALT [Catalytic activity/Vol] 30 U/L 14-59 [facility] AST [Catalytic activity/Vol] 24 U/L 15-37 [facility] Bilirubin [Mass/Vol] 0.5 mg/dL 0.2-1.0 [facility] Calcium [Mass/Vol] 9.8 mg/dL 8.5-10.1 [facility] Chloride [Moles/Vol] 102 mmol/L 98-107 [facility] CO2 [Moles/Vol] 31.2 mmol/L 21.0-32.0 [facility] Creatinine [Mass/Vol] 1.01 mg/dL 0.55-1.02 [facility] GFR/1.73 sq M.predicted MDRD (S/P/Bld) [Vol rate/Area] mL/min/{1.73_m2} >=60 [facility] Glucose [Mass/Vol] 100 mg/dL 74-106 [facility] Lipase [Catalytic activity/Vol] 25.0 U/L 16.0-77.0 [facility] Potassium [Moles/Vol] 3.9 mmol/L 3.5-5.1 [facility] Protein [Mass/Vol] 7.1 g/dL 6.4-8.2 [facility] Sodium [Moles/Vol] 140 mmol/L 136-145 [facility] Urea nitrogen [Mass/Vol] 22.0 mg/dL High 7.0-18.0 [facility] Urea nitrogen/Creatinine [Mass ratio] 21.8 mg/mg [facility] Bilirubin Ql (U) Negative NEGATIVE [facility] Glucose (U) [Mass/Vol] Negative NEGATIVE [facility] Ketones Ql (U) Negative NEGATIVE [facility] pH (U) 6.0 [pH] 5.0-9.0 [facility] Specific gravity (U) [Rel density] 1.020 1.005-1.025 [facility] Urobilinogen Qn (U) 0.2 {Sosa'U}/dL 0.2-1.0 [facility] Laboratory - Hematology and Cell countson 09-09-2023 Immature granulocytes/100 WBC (Bld) 0.3 % 0.0-0.5 [facility] Laboratory - Specimen inform ationon 09-09-2023 Appearance (U) CLEAR CLEAR [facility] Color (U) DK. YELLOW YELLOW [facility] Laboratory - Urinalysison Amorphous sediment LM Ql (Urine sed) RARE [facility] Leukocyte esterase Test strip Ql (U) TRACE Abnormal NEGATIVE [facility] Nitrite Ql (U) Negative NEGATIVE [facility] Protein Ql (U) Negative NEG/TRACE [facility] Leukocytes [#/volume] correc bill for nucleated erythrocytes in Blood by Automated counon 09-09-2023 WBC corrected for nucl RBC Auto (Bld) [#/Vol] 10.7 10 3/uL 4.0-11.0 [facility] Lymphocytes Auto (Bld) [#/Vo l]on 09-09-2023 Lymphocytes (Bld) [#/Vol] 1.5 10 3/uL 1.2-3.8 [facility] Lymphocytes/100 WBC Auto (Bl d)on 09-09-2023 Lymphocytes/100 WBC (Bld) 13.7 % Low 20.5-60.0 [facility] MCH Auto (RBC) [Entitic mass ]on 09-09-2023 MCH (RBC) [Entitic mass] 31.2 pg 26.7-34.0 [facility] MCHC Auto (RBC) [Mass/Vol]on 09-09-2023 MCHC (RBC) [Mass/Vol] 32.3 g/dL 29.9-35.2 [facility] MCV Auto (RBC) [Entitic vol] on 09-09-2023 MCV (RBC) [Entitic vol] 96.5 fL 81.0-99.0 [facility] Monocytes Auto (Bld) [#/Vol] on 09-09-2023 Monocytes (Bld) [#/Vol] 1.0 10 3/uL High 0.3-0.8 [facility] Monocytes/100 WBC Auto (Bld) on 09-09-2023 Monocytes/100 WBC (Bld) 9.5 % 1.7-12.0 [facility] Mucus LM Ql (Urine sed)on Mucus Ql (Urine sed) NONE SEEN NONE SEEN [facility] Neutrophils Auto (Bld) [#/Vo l]on 09-09-2023 Neutrophils (Bld) [#/Vol] 8.0 10 3/uL High 1.4-6.5 [facility] Neutrophils/100 WBC Auto (Bl d)on 09-09-2023 Neutrophils/100 WBC (Bld) 75.0 % 43.0-75.0 [facility] No Panel Informationon 09-08 Eosinophils # (Auto) 0.1 10 3/uL 0.0-0.7 [facility] Immature Granulocyte # (Auto) 0.03 10 3/uL 0.00-0.03 [facility] Urine Bacteria NONE SEEN #/HPF NONE SEEN [facility] Urine Culture [facility] Microscopic Review YES [facility] Urine Occult Blood LARGE Abnormal NEGATIVE [facility] Urine Other Crystals Seen #/HPF Abnormal None Seen [facility] Urine RBC 10-20 #/HPF Abnormal 0-2 [facility] Urine Squamous Epithelial Cells NONE SEEN #/LPF NONE/RARE [facility] Urine Uric Acid Crystals FEW [facility] Urine WBC 2-5 #/HPF Abnormal NONE SEEN [facility] Platelet mean volume Auto (B ld) [Entitic vol]on 09-09-2023 Platelet mean volume (Bld) [Entitic vol] 9.5 fL 9.5-13.5 [facility] Platelets Auto (Bld) [#/Vol] on 09-09-2023 Platelets (Bld) [#/Vol] 240 10 3/uL 150-450 [facility] RBC Auto (Bld) [#/Vol]on RBC (Bld) [#/Vol] 4.04 10 6/uL Low 4.20-5.40 [facility] Serum or plasma albumin/glob ulin mass ratioon 09-09-2023 Albumin/Globulin [Mass ratio] 1.0 {ratio} [facility] Serum or plasma anion gap de terminationon 09-09-2023 Anion gap [Moles/Vol] 10.7 mmol/L [facility] XR RIBS LT PA Stephen 3 [...] by: PB GENAO Date: 2022-10-02 11:51 [facility] XR CSPINE 2_3 VIEWSon 2022 [...] by: ISAEL GRIFFIN Date: 2022-09-05 15:58 Normal [facility] CBC AUTO DIFFon 12-31-2021 BASO # 0.0 103/ul Normal 0.0-0.1 [facility] Comment on above: Performed By: #### C BC #### [facility] [address] [address] [address] Radha Land Basophils/100 WBC (Bld) 0.2 % Normal 0.2-2.0 [facility] Comment on above: Performed By: #### C BC #### [facility] [address] [address] [address] Radha Land EO # 0.2 103/ul Normal 0.0-0.7 [facility] Comment on above: Performed By: #### C BC #### [facility] [address] [place] [address] Dr. Radha Land Eosinophils/100 WBC (Bld) 1.7 % Normal 0.9-7.0 [facility] Comment on above: Performed By: #### C BC #### [facility] [address] [place] [address] Dr. Radha Land Erythrocyte distribution width (RBC) [Ratio] 13.4 % Normal 11.0-15.0 [facility] Comment on above: Performed By: #### C BC #### [facility] [address] [place] [address] Dr. Radha Land Hematocrit (Bld) [Volume fraction] 40.9 % Normal 36.0-48.0 [facility] Comment on above: Performed By: #### C BC #### [facility] [address] [place] [address] Dr. Radha Land Hemoglobin (Bld) [Mass/Vol] 13.1 g/dL Normal 12.0-16.0 [facility] Comment on above: Performed By: #### C BC #### [facility] [address] [place] [address] Dr. Radha Land IG # 0.05 10e3/ul Critically high 0.00-0.03 [facility] Comment on above: Performed By: #### C BC #### [facility] [address] [place] [address] Dr. Radha Land IG % 0.4 % Normal 0.0-0.5 [facility] Comment on above: Performed By: #### C BC #### [facility] [address] [place] [address] Dr. Radha Land LYMPH # 1.4 103/ul Normal 1.2-3.8 [facility] Comment on above: Performed By: #### C BC #### [facility] [address] [place] [address] Dr. Radha Land Lymphocytes/100 WBC (Bld) 10.8 % Critically low 20.5-60.0 [facility] Comment on above: Performed By: #### C BC #### [facility] [address] [place] [address] Dr. Radha Land MANUAL DIFF REQ NO Normal [place] Comment on above: Performed By: #### C BC #### [facility] [address] [place] [address] Dr. Radha Land MCH (RBC) [Entitic mass] 31.5 pg Normal 26.7-34.0 [facility] Comment on above: Performed By: #### C BC #### [facility] [address] [place] [address] Dr. Radha Land MCHC (RBC) [Mass/Vol] 32.0 g/dL Normal 29.9-35.2 [facility] Comment on above: Performed By: #### C BC #### [facility] [address] [place] [address] Dr. Radha Land MCV (RBC) [Entitic vol] 98.3 fL Normal 81.0-99.0 [facility] Comment on above: Performed By: #### C BC #### [facility] [address] [place] [address] Dr. Radha Land MONO # 1.3 103/ul Critically high 0.3-0.8 [place] Comment on above: Performed By: #### C BC #### [facility] [address] [place] [address] Dr. Radha Land Monocytes/100 WBC (Bld) 9.7 % Normal 1.7-12.0 [facility] Comment on above: Performed By: #### C BC #### [facility] [address] [place] [address] Dr. Radha Land NEUT # 10.2 103/ul Critically high 1.4-6.[address] [facility] Comment on above: Performed By: #### C BC #### [facility] [address] [place] [address] Dr. Radha Land Neutrophils/100 WBC (Bld) 77.2 % Critically high 43.0-75.0 [facility] Comment on above: Performed By: #### C BC #### [facility] [address] [address] [address] Radha Land Platelet mean volume (Bld) [Entitic vol] 9.7 fL Normal 9.5-13.5 [facility] Comment on above: Performed By: #### C BC #### [facility] [address] [address] [address] Radha Land PLT 235 103/ul Normal 150-450 [facility] Comment on above: Performed By: #### C BC #### [facility] [address] [address] [address] Radha Land RBC 4.16 106/ul Critically low 4.20-5.40 [place] Comment on above: Performed By: #### C BC #### [facility] [address] [address] [address] Radha Land WBC 13.2 103/ul Critically high 4.0-11.[address] [facility] Comment on above: Performed By: #### C BC #### [facility] [address] [place] [address] Dr. Radha Land SED RATE WESTERGRENon 2021 SED RATE 35 mm/hr Critically high <=30 [place] Comment on above: Performed By: #### S EDR #### [facility] [address] [place] [address] Dr. Radha Land CBC AUTO DIFFon 11-07-2021 BASO # 0.0 103/ul Normal 0.0-0.1 [facility] Comment on above: Performed By: #### C BC ####[facility] [address] [address]Dr. Radha Land Basophils/100 WBC (Bld) 0.3 % Normal 0.2-2.0 [facility] Comment on above: Performed By: #### C BC ####[facility] [address] [address]Dr. Radha Land EO # 0.2 103/ul Normal 0.0-0.7 [facility] Comment on above: Performed By: #### C BC ####[facility] [address] [id number][address] Radha Land Eosinophils/100 WBC (Bld) 3.3 % Normal 0.9-7.[address] [facility] Comment on above: Performed By: #### C BC ####[facility] [address] [address]Dr. Radha Land Erythrocyte distribution width (RBC) [Ratio] 13.2 % Normal 11.0-15.[address] [facility] Comment on above: Performed By: #### C BC ####[facility] [address] [place], [place] [address]Dr. Radha Land Hematocrit (Bld) [Volume fraction] 41.9 % Normal 36.0-48.[address] [facility] Comment on above: Performed By: #### C BC ####[facility] [address] [place], [place] [address]Dr. Radha Land Hemoglobin (Bld) [Mass/Vol] 13.4 g/dL Normal 12.0-16.[address] [facility] Comment on above: Performed By: #### C BC ####[facility] [address] [place], [place] [address]Dr. Radha Land IG # 0.01 10e3/ul Normal 0.00-0.[address] [facility] Comment on above: Performed By: #### C BC ####[facility] [address] [place], [place] [address]Dr. Radha Land IG % 0.2 % Normal 0.0-0.[address] [facility] Comment on above: Performed By: #### C BC ####[facility] [address] [place], [place] [address]Dr. Radha Land LYMPH # 1.6 103/ul Normal 1.2-3.[address] [facility] Comment on above: Performed By: #### C BC ####[facility] [address] [place] [id number]. Radha Land Lymphocytes/100 WBC (Bld) 27.5 % Normal 20.5-60.[address] [facility] Comment on above: Performed By: #### C BC ####[facility] [address] [place] [id number]. Radha Land MANUAL DIFF REQ NO Normal [place] Comment on above: Performed By: #### C BC ####[facility] [address] [place] [id number]. Radha Land MCH (RBC) [Entitic mass] 31.2 pg Normal 26.7-34.0 [facility] Comment on above: Performed By: #### C BC ####[facility] [address] [place] [address]Dr. Radha Land MCHC (RBC) [Mass/Vol] 32.0 g/dL Normal 29.9-35.2 [facility] Comment on above: Performed By: #### C BC ####[facility] [address] [place], [place] [address]Dr. Jacquelyncharlotte Land MCV (RBC) [Entitic vol] 97.7 fL Normal 81.0-99.0 [facility] Comment on above: Performed By: #### C BC ####[facility] [address] [place], [place] [address]Dr. Radha Emery MONO # 0.7 103/ul Normal 0.3-0.8 [facility] Comment on above: Performed By: #### C BC ####[facility] [address] [place] [address]Dr. Jacquelyncharlotte Land Monocytes/100 WBC (Bld) 12.4 % Critically high 1.7-12. 0 [facility] Comment on above: Performed By: #### C BC ####[facility] [address] [place] [address]Dr. Radha Land NEUT # 3.2 103/ul Normal 1.4-6.5 [facility] Comment on above: Performed By: #### C BC ####[facility] [address] [place], [place] [id number]. Radha Land Neutrophils/100 WBC (Bld) 56.3 % Normal 43.0-75.0 [facility] Comment on above: Performed By: #### C BC ####[facility] [address] [place], [place] [address]Wz. Radha Land Platelet mean volume (Bld) [Entitic vol] 9.4 fL Critically low 9.5-13.5 [facility] Comment on above: Performed By: #### C BC ####[facility] [address] [place], [place] [address]Yo. Radha Land PLT 226 103/ul Normal 150-[address] [facility] Comment on above: Performed By: #### C BC ####[facility] [address] [place], [place] [address]Iq. Radha Land RBC 4.29 106/ul Normal 4.20-5.40 [facility] Comment on above: Performed By: #### C BC ####[facility] [address] [place] [id number]. Radha Land WBC 5.7 103/ul Normal 4.0-11.0 [facility] Comment on above: Performed By: #### C BC ####[facility] [address] [place] [id number]. Radha Land LIPID PROFILEon 11-07-2021 CHOL-HDL RATIO NORM SEE BELOW Normal [facility] Comment on above: Result Comment: 3.3 - 4.4 LOW RISK 4.4 - 7.1 AVERAGE RISK 7.1 - 11.0 MODERATE RISK >11.0 HIGH RISK Performed By: #### L IPID, CMP #### [facility] [address] [place] [address] Dr. Radha Land Cholesterol [Mass/Vol] 257 mg/dL Critically high <=[address] [facility] Comment on above: Performed By: #### L IPID, CMP #### [facility] [address] [address] [address] Radha Land Cholesterol in HDL [Mass/Vol] 76 mg/dL Critically high 40-60 [facility] Comment on above: Performed By: #### L IPID, CMP #### [facility] [address] [address] [address] Radha Land Cholesterol in LDL [Mass/Vol] 163.8 mg/dL Normal [facility] Comment on above: Performed By: #### L IPID, CMP #### [facility] [address] [address] [address] Radha Land Cholesterol.total/Choles terol in HDL [Mass ratio] 3.4 {ratio} Normal [facility] Comment on above: Performed By: #### L IPID, CMP #### [facility] [address] [address] [address] Radha Land HDL NORMAL > or = 60 mg/dl - LOW CARDIOVASCULAR RISK <40 mg/dl - HIGH CARDIOVASCULAR RISK Normal [facility] Comment on above: Performed By: #### L IPID, CMP #### [facility] [address] [address] [address] Radha Land LDL CALC NORMAL SEE BELOW Normal [place] Comment on above: Result Comment: <100 mg/dl OPTIMAL 100 - 129 mg/dl NEAR OR ABOVE OPTIMAL 130 - 159 mg/dl BORDERLINE HIGH 160 - 189 mg/dl HIGH >190 mg/dl VERY HIGH Performed By: #### L IPID, CMP #### [facility] [address] [address] [address] Radha Land Triglyceride [Mass/Vol] 86 mg/dL Normal <=150 [facility] Comment on above: Performed By: #### L IPID, CMP #### [facility] [address] [address] [address] Radha Land VLDL CALC 17.2 mg/dL Normal [facility] Comment on above: Performed By: #### L IPID, CMP #### [facility] [address] [address] [address] Radha Land MG MAMM SCREEN 3D GIANCARLO CADon 11-07-2021 MG MAMM SCREEN 3D GIANCARLO CAD Patient: EDUARDO LEA Exam Date: 11/07/2021 : 1940 Gender:F Ordering : DR SAVANNA HIGGINS M.D. Admission #: [id number] Family : Order #: [id number] CLICK HERE TO VIEW EXAM RADIOLOGY REPORT [...] cancer at age 47. LOCATION: [facility] BREAST COMPOSITION: Extremely dense, which lowers [...] Arriaga MD on 11/07/2021 at 11:21 Normal [facility] PROF 14(COMP METB)on 022 Albumin [Mass/Vol] 3.6 g/dL Normal 3.4-5.0 [facility] Comment on above: Performed By: #### L IPID, CMP #### [facility] [address] [place] [address] Dr. Radha Land Albumin/Globulin [Mass ratio] 0.9 {ratio} Normal [facility] Comment on above: Performed By: #### L IPID, CMP #### [facility] [address] [place] [address] Dr. Radha Land ALP [Catalytic activity/Vol] 79 U/L Normal 46-116 [facility] Comment on above: Performed By: #### L IPID, CMP #### [facility] [address] [place] [address] Dr. Radha Land ALT [Catalytic activity/Vol] 32 U/L Normal 14-59 [facility] Comment on above: Performed By: #### L IPID, CMP #### [facility] [address] [place] [address] Dr. Radha Land Anion gap [Moles/Vol] 6.1 mmol/L Normal [facility] Comment on above: Performed By: #### L IPID, CMP #### [facility] [address] [place] [address] Dr. Radha Land AST [Catalytic activity/Vol] 28 U/L Normal 15-37 [facility] Comment on above: Performed By: #### L IPID, CMP #### [facility] [address] [place] [address] Dr. Radha Land Bilirubin [Mass/Vol] 0.6 mg/dL Normal 0.2-1.0 [facility] Comment on above: Performed By: #### L IPID, CMP #### [facility] [address] [place] [address] Dr. Radha Land Calcium [Mass/Vol] 9.1 mg/dL Normal 8.5-10.1 [facility] Comment on above: Performed By: #### L IPID, CMP #### [facility] [address] [place] [address] Dr. Radha Land Chloride [Moles/Vol] 104 mmol/L Normal 98-107 [facility] Comment on above: Performed By: #### L IPID, CMP #### [facility] [address] [place] [address] Dr. Radha Land CO2 [Moles/Vol] 31.0 mmol/L Normal 21.0-32.[address] [facility] Comment on above: Performed By: #### L IPID, CMP #### [facility] [address] [place] [address] Dr. Radha Land Creatinine [Mass/Vol] 0.86 mg/dL Normal 0.55-1.02 [facility] Comment on above: Performed By: #### L IPID, CMP #### [facility] [address] [place] [address] Dr. Radha Land EGFR-AF SALVADOREAN >60 Normal >=60 [facility] Comment on above: Performed By: #### L IPID, CMP #### [facility] [address] [place] [address] Dr. Radha Land EGFR-NON AF SALVADOREAN >60 Normal >=60 [facility] Comment on above: Performed By: #### L IPID, CMP #### [facility] [address] [place] [address] Dr. Radha Land Globulin (S) [Mass/Vol] 4.1 g/dL Normal [facility] Comment on above: Performed By: #### L IPID, CMP #### [facility] [address] [place] [address] Dr. Radha Land Glucose [Mass/Vol] 89 mg/dL Normal 74-106 [facility] Comment on above: Performed By: #### L IPID, CMP #### [facility] [address] [place] [address] Dr. Radha Land Potassium [Moles/Vol] 4.1 mmol/L Normal 3.5-5.1 [facility] Comment on above: Performed By: #### L IPID, CMP #### [facility] [address] [place] [address] Dr. Radha Land Protein [Mass/Vol] 7.7 g/dL Normal 6.4-8.2 [facility] Comment on above: Performed By: #### L IPID, CMP #### [facility] [address] [place] [address] Dr. Radha Land Sodium [Moles/Vol] 137 mmol/L Normal 136-145 [facility] Comment on above: Performed By: #### L IPID, CMP #### [facility] [address] [place] [address] Dr. Radha Land Urea nitrogen [Mass/Vol] 12.0 mg/dL Normal 7.0-18.0 [facility] Comment on above: Performed By: #### L IPID, CMP #### [facility] [address] [place] [address] Dr. Radha Land Urea nitrogen/Creatinine [Mass ratio] 14.0 mg/mg Normal [facility] Comment on above: Performed By: #### L IPID, CMP #### [facility] [address] [place] [address] Dr. Radha Land Vital Signs Date Time Vital Sign Value Performing Clinician Facility 12-28-2024 14:24-0400 Body height 165.1 cm Savanna Higgins MD Work Phone: [facility] 12-28-2024 14:24-0400 Body mass index (BMI) [Ratio] 20.5 kg/m2 Savanna Higgins MD Work Phone: [facility] 12-28-2024 14:24-0400 Body weight 55.79 kg Savanna Higgins MD Work Phone: [facility] 12-28-2024 14:24-0400 Diastolic blood pressure 73 mm[Hg] Savanna Higgins MD Work Phone: [facility] 12-28-2024 14:24-0400 Heart rate 57 /min Savanna Higgins MD Work Phone: [facility] 12-28-2024 14:24-0400 Systolic blood pressure 133 mm[Hg] Savanna Higgins MD Work Phone: [facility] 10-14-2024 09:57-0400 Body height 165.1 cm [facility] 10-14-2024 09:57-0400 Body mass index (BMI) [Ratio] 20.3 kg/m2 [facility] 10-14-2024 09:57-0400 Body weight 55.56 kg [facility] 10-14-2024 09:57-0400 Diastolic blood pressure 81 mm[Hg] [facility] 10-14-2024 09:57-0400 Heart rate 84 /min [facility] 10-14-2024 09:57-0400 Systolic blood pressure 160 mm[Hg] [facility] 09-15-2024 08:18-0400 Body weight 55.1 kg [facility] 09-15-2024 08:18-0400 Diastolic blood pressure 71 mm[Hg] [facility] 09-15-2024 08:18-0400 Systolic blood pressure 109 mm[Hg] [facility] 11-18-2023 10:53-0400 Body height 165.1 cm [facility] 11-18-2023 10:53-0400 Body mass index (BMI) [Ratio] 20.5 kg/m2 [facility] 11-18-2023 10:53-0400 Body weight 55.79 kg [facility] 11-18-2023 10:53-0400 Diastolic blood pressure 55 mm[Hg] [facility] 11-18-2023 10:53-0400 Heart rate 65 /min [facility] 11-18-2023 10:53-0400 Systolic blood pressure 132 mm[Hg] [facility] 11-06-2023 11:11-0400 Body height 165.1 cm [facility] 11-06-2023 11:11-0400 Body mass index (BMI) [Ratio] 20.2 kg/m2 [facility] 11-06-2023 11:11-0400 Body weight 55.33 kg [facility] 11-06-2023 11:11-0400 Diastolic blood pressure 67 mm[Hg] [facility] 11-06-2023 11:11-0400 Heart rate 61 /min [facility] 11-06-2023 11:11-0400 Systolic blood pressure 124 mm[Hg] [facility] 10-13-2023 12:31-0400 Blood Pressure Location Roman ORTEGA [facility] 10-13-2023 12:31-0400 Diastolic blood pressure 78 mm[Hg] Roman ORTEGA [facility] 10-13-2023 12:31-0400 Heart rate 80 /min Roman ORTEGA [facility] 10-13-2023 12:31-0400 Respiratory rate 16 /min Roman ORTEGA [facility] 10-13-2023 12:31-0400 Systolic blood pressure 134 mm[Hg] Roman ORTEGA [facility] 09-30-2023 14:31-0400 Body height 165.1 cm [facility] 09-30-2023 14:31-0400 Body mass index (BMI) [Ratio] 20.5 kg/m2 [facility] 09-30-2023 14:31-0400 Body weight 55.79 kg [facility] 09-30-2023 14:31-0400 Diastolic blood pressure 62 mm[Hg] [facility] 09-30-2023 14:31-0400 Heart rate 64 /min [facility] 09-30-2023 14:31-0400 Systolic blood pressure 104 mm[Hg] [facility] 09-17-2023 08:00-0400 Blood Pressure Location Roman ORTEGA [facility] 09-17-2023 08:00-0400 Diastolic blood pressure 80 mm[Hg] Roman ORTEGA [facility] 09-17-2023 08:00-0400 Heart rate 64 /min Roman ORTEGA [facility] 09-17-2023 08:00-0400 Systolic blood pressure 132 mm[Hg] Roman ORTEGA [facility] 01-10-2023 09:45-0400 Body height 165.1 cm Savanna Higgins Other [employer] Other 01-10-2023 09:45-0400 Body mass index (BMI) [Ratio] 20.87 kg/m2 Savanna Higgins Other [employer] Other 01-10-2023 09:45-0400 Body weight 56.88 kg Savanna Higgins Other [employer] Other 01-10-2023 09:45-0400 Diastolic blood pressure 78 mm[Hg] Savanna Higgins Other [employer] Other 01-10-2023 09:45-0400 Systolic blood pressure 142 mm[Hg] Savanna Higgins Other [employer] Other 10-28-2022 08:30-0400 Body height 165.1 cm Savanna Higgins Other [employer] Other 10-28-2022 08:30-0400 Body mass index (BMI) [Ratio] 20.47 kg/m2 Savanna Higgins Other [employer] Other 10-28-2022 08:30-0400 Body weight 55.79 kg Savanna Higgins Other [employer] Other 10-28-2022 08:30-0400 Diastolic blood pressure 47 mm[Hg] Savanna Higgins Other [employer] Other 10-28-2022 08:30-0400 Systolic blood pressure 124 mm[Hg] Savanna Higgins Other [employer] Other Encounters Encounter Date Encounter Type Care Provider Facility Start: 01-28-2025 ambulatory Roman Mota ty:[facility] Start: 12-30-2024 End: 12-30-2024 ambulatory Jae Alaniz MD Facility:[facility] Start: 12-28-2024 End: 12-28-2024 ambulatory Savanna Higgins MD Work Phone: [facility] Work Phone: Start: 12-28-2024 End: 12-28-2024 Patient encounter procedure Savanna Higgins MD -[facility] Work Phone: Start: 12-28-2024 Non-patient / Non-visit Jae Alaniz MD -[facility] [employer] Work Phone: Start: 11-29-2024 End: 11-29-2024 ambulatory Roman ORTEGA Facility:[facility] Start: 11-29-2024 End: 11-29-2024 Patient encounter procedure Roman R SHANNON [facility] Start: 11-23-2024 End: 11-23-2024 ambulatory POONAM DIGLIO Facility:[facility] Start: 11-01-2024 End: 11-01-2024 ambulatory Dulce Cifuentes MD Facility:[facility] Start: 10-14-2024 End: 10-14-2024 ambulatory [facility] Work Phone: Start: 10-14-2024 End: 10-14-2024 Patient encounter procedure [facility] Work Phone: Start: 09-15-2024 End: 09-15-2024 ambulatory [facility] Work Phone: Start: 09-15-2024 End: 09-15-2024 Patient encounter procedure [facility] Work Phone: Start: 08-18-2024 End: 08-18-2024 ambulatory [facility] Work Phone: Start: 08-18-2024 End: 08-18-2024 Patient encounter procedure [facility] Work Phone: Start: 03-16-2024 End: 03-16-2024 ambulatory [facility] Work Phone: Start: 03-16-2024 End: 03-16-2024 Patient encounter procedure [facility] Work Phone: Start: 02-02-2024 End: 02-02-2024 ambulatory Dulce Cifuentes MD Facility:[facility] Start: 01-05-2024 End: 01-05-2024 Bamboo flowsgayle Hoyt MD Work Phone: [facility] Start: 01-05-2024 End: 01-05-2024 Bamboo flowsgayle Hoyt MD Work Phone: [facility] Start: 01-05-2024 End: 01-05-2024 ambulatory REBECA HOYT Not Available Start: 12-09-2023 End: 12-09-2023 ambulatory [facility] Work Phone: Start: 12-09-2023 End: 12-09-2023 Patient encounter procedure [facility] Work Phone: Start: 11-18-2023 End: 11-18-2023 ambulatory [facility] Work Phone: Start: 11-18-2023 End: 11-18-2023 Patient encounter procedure [facility] Work Phone: Start: 11-10-2023 Patient encounter procedure [facility] Start: 11-06-2023 End: 11-06-2023 Patient encounter procedure [facility] Work Phone: Start: 10-13-2023 End: 10-13-2023 Patient encounter procedure Roman ORTEGA [facility] Start: 09-30-2023 End: 09-30-2023 ambulatory [facility] Work Phone: Start: 09-30-2023 End: 09-30-2023 Patient encounter procedure [facility] Work Phone: Start: 09-17-2023 End: 09-17-2023 Patient encounter procedure Roman ORTEGA [facility] Start: 09-09-2023 Non-patient / Non-visit [facility] [employer] Work Phone: Start: 08-26-2023 End: 08-26-2023 ambulatory [facility] Work Phone: Start: 08-26-2023 End: 08-26-2023 Patient encounter procedure [facility] Work Phone: Start: 03-28-2023 End: 03-28-2023 ambulatory Savanna Gisela Other [employer] Other Start: 03-28-2023 Telephone encounter Savanna Higgins [facility] Start: 01-31-2023 End: 01-31-2023 ambulatory Savanna Gisela Other [employer] Other Start: 01-31-2023 Nursing evaluation o f patient and report Savanna Higgins [facility] Start: 01-14-2023 End: 01-14-2023 ambulatory Savanna Higgins Other [employer] Other Start: 01-14-2023 Telephone encounter Savanna Higgins [facility] Start: 01-10-2023 End: 01-10-2023 ambulatory Savanna Higgins Other [employer] Other Start: 01-10-2023 Office outpatient visit 15 minutes Savanna Higgins [facility] Start: 10-28-2022 End: 10-28-2022 ambulatory Savanna Higgins Other [employer] Other Start: 10-28-2022 Patient encounter procedure Savanna Higgins [facility] Start: 10-24-2022 End: 10-24-2022 ambulatory Savanna Higgins Other [employer] Other Start: 10-24-2022 Telephone encounter Savanna Higgins [facility] Start: 10-08-2022 End: 10-08-2022 ambulatory NARENDRANATH [...] 12-31-2021 Adult health examination Savanna Higgins Other [place] [employer] Other Start: 12-31-2021 End: 01-01-[address] SAVANNA HIGGINS Facility:[facility] Start: 12-25-2021 End: 12-26-[address] VALENTINA BECKER . Facility:[facility] Start: 12-19-2021 End: 12-20-[address] VALENTINA BECKER . Facility:[facility] Start: 11-07-2021 End: 11-08-[address] SAVANNA HIGGINS Facility:[facility] Start: 03-01-2017 End: 03-01-2017 ambulatory [facility] Facility:[facility] Procedures Date Procedure Procedure Detail Performing Clinician [...] Treatment Date Care Activity Detail Author Start: 01-04-2025 ambulatory Ambulatory Facility:[facility] Start: 10-14-2024 Patient referral [facility] Work Phone: Start: 09-15-2024 Patient referral [facility] Work Phone: Start: 01-11-2024 Influenza vaccination Influenza Vacc ine (#1) [facility] Start: 01-05-2024 End: 01-05-2024 Patient encounter procedure 01/05/2024 2:00 PM EDT Office Visit [facility] [address] [place] [address] Rebeca Hoyt MD [address] [place] [address] Arrived [facility] Comment on above: Arrived Start: 03-10-2019 Pneumococcal Vaccine : 65+ Years (2 of 2 - PPSV23 or PCV20) Pneumococcal Vaccine: 65+ Years (2 of 2 - PPSV23 or PCV20) [facility] Diagnostic radiograp hy of abdomen [facility] MG Breast - bilatera l Screening [facility] Patient Education Low back pain in adults [facility] Work Phone: Patient referral [facility] Work Phone: [facility] [employer] [facility] Immunizations Immunization Date Immunization Notes Care Provider Fa cility 03-16-2024 influenza, high dose seasonal, preservative-free [facility] 02-14-2023 influenza virus vaccine, unspecified formulation Romanarminda ORTEGA [facility] 03-12-2022 SARS-CoV-2 (COVID-19 ) [id number] Romanarminda ORTEGA [facility] Comment on above: Result Comment: 2023: [id number] 02-28-2022 influenza virus vaccine, split virus (incl. purified surface antigen) Savanna Higgins Other [employer] Other 02-28-2022 influenza virus vaccine, unspecified formulation [facility] 11-09-2021 SARS-CoV-2 (COVID-19 ) mRNA-1273 vaccine Roman ORTEGA [facility] Comment on above: Result Comment: 2023: [id number] 03-08-2021 SARS-CoV-2 (COVID-19 ) mRNA-1273 vaccine Roman SHANNON [facility] 02-27-2021 influenza virus vaccine, split virus (incl. purified surface antigen) Savanna Higgins Other [employer] Other 02-27-2021 influenza virus vaccine, unspecified formulation [facility] 06-29-2020 SARS-CoV-2 (COVID-19 ) mRNA-1273 vaccine Roman SHANNON [facility] 06-01-2020 SARS-CoV-2 (COVID-19 ) mRNA-1273 vaccine Roman ORTEGA [facility] 03-14-2020 zoster vaccine recombinant Roman ORTEGA [facility] 02-16-2020 influenza virus vaccine, split virus (incl. purified surface antigen) Savanna Higgins Other [employer] [facility] [email or web address] Other 02-16-2020 influenza virus vaccine, unspecified formulation [facility] 10-25-2019 pneumococcal polysaccharide vaccine, 23 valent Savanna Higgins Other [facility] 01-25-2019 influenza virus vaccine, unspecified formulation Roman ORTEGA [facility] 03-10-2018 pneumococcal conjuga te vaccine, 13 valent Savanna Higgins Other [facility] 02-14-2018 influenza virus vaccine, unspecified formulation Roman ORTEGA [facility] 01-08-2017 influenza virus vaccine, split virus (incl. purified surface antigen) Savanna Higgins Other [employer] [facility] [email or web address] Other 01-08-2017 influenza virus vaccine, unspecified formulation [facility] 02-06-2016 influenza virus vaccine, split virus (incl. purified surface antigen) Savanna Higgins Other [employer] [facility] [email or web address] Other 02-06-2016 influenza virus vaccine, unspecified formulation [facility] 03-24-2015 influenza virus vaccine, split virus (incl. purified surface antigen) Savanna Higgins Other [employer] [facility] [email or web address] Other 03-24-2015 influenza virus vaccine, unspecified formulation [facility] 02-26-2013 tetanus and diphther ia toxoids, adsorbed, preservative free, for adult use (5 Lf of tetanus toxoid and 2 Lf of diphtheria toxoid) Savanna Higgins Other [facility] Payers Date Payer Category Payer Private Health Insurance [facility] [id number] 2024 Private Health Insurance 2022 Medicare [id number] 2017 Self-pay 1960 Medicare [id number] 1940 Unknown [id number] 2.16.84 [id number] 1940 Unknown [id number] 2.16.84 [id number] 1940 Unknown [id number] 2.16.84 [id number] 1940 Unknown [id number] 2.16.84 [id number] 1940 Unknown [id number] 2.16.84 [id number] 1940 Unknown [id number] 2.16.84 [id number] 1940 Unknown [id number] 2.16.84 [id number] 1940 Unknown [id number] 2.16.84 [id number] 1940 Unknown [id number] 2.16.84 [id number] 1940 Unknown [id number] 2.16.84 [id number] 1940 Unknown [id number] 2.16.84 0.1.463732.3.579.2.593 1940 Unknown [id number] 2.16.84 0.1.837906.3.579.2.593 1940 Unknown [id number] 2.16.84 0.1.999552.3.579.2.1259 1940 Unknown [id number] 2.16.8 40.1.057201.3.579.2.727 1940 Unknown [id number] 2.16.8 40.1.971514.3.579.2.727 1940 Unknown [id number] 2.16.8 40.1.335299.3.579.2.727 1940 Unknown [id number] 2.16. 840.1.553290.3.579.2.196 1940 Unknown [id number] 2.16. 840.1.182081.3.579.2.196 1940 Unknown [id number] 2.16. 840.1.254354.3.579.2.196 1940 Unknown [id number] 2.16. 840.1.485702.3.579.2.196 Private Health Insurance [id number] 2.16.840.1.192392.19 Unknown [id number] .16.8 40.1.852120.3.579.2.531 Social History Date Type Detail Facility Unknown if ever smoked [employer] Other Sex Assigned At [facility] Start: 1940 Sex Assigned At Female F [facility] Start: 09-17-2023 End: 10-13-2023 Tobacco smoking status Never smoked tobacco (finding) [facility] Tobacco smoking status Never [facility] Start: 1940 Sex assigned at Not on file N [facility] Tobacco smoking stat [facility] Unknown if ever smoked [facility] Work Phone: Start: 12-21-2009 End: 08-18-2024 Sex Female (finding) [facility] Sexual Orientation [facility] Functional Status Date Assessment Result Facility 10-13-2023 Functional Status N/A [facility] 09-17-2023 Functional Status N/A [facility] [place] Clinical Notes 12-19-2021 to 10-14-2024 Note Date & Type Note Facility 10-14-2024 Evaluation note Diagnosis Onset Date Resolution Lumbar back pain acute October 9:56am Skin tear of right lower leg without complication acute October 14, 2024 9 :56am Abnormal finding on EKG acute A ugust 2024 2:17pm [facility] Work Phone: 1(905) 642-809304-09-2025 Evaluation note* Diagnosis Onset Date Resolution Status Admit Date Seasonal allergic rhinitis acute August 18, 2024 11:44am [facility] Work Phone: 1(918) 847-591604-09-2025 Evaluation note* Diagnosis Onset Date Resolution Status Admit Date Seasonal allergic rhinitis acute August 18, 2024 11:44am Lumbar back pain acute September 15, 2024 8:13am Lumbar back pain acute October 9:56am [facility] Work Phone: 1([phone]) 631-780108-26-2024 History of Present illness Narrative* Rebeca Hoyt MD - 01/05/2024 2:00 PM EDT Assessment/Plan Dry Eyes OU -- Environmental changes to minimize dryness and exposure and the use of artificial tears were recommended. [id number] Hospital Discharge instructions Patient Education 10/13/2023 13:39:08 Kidney Stones, Dpxq-jb-Ioul Kidney Stones Kidney stones are rock-like masses [...] Follow these instructions at home: Medicines Take sksq-qap-nveshiv and prescription medicines only as told by [...] provider. Document Revised: 12/31/2021 Document Reviewed: 12/31/2021 [employer] Patient Education 2022 [employer]. Follow Up Care 09/17/2023 08:40:02 With:SHANNON SALGUERO, Roman Mitchell, URL Address: [facility] [address] , [place] [phone] When: Unknown [facility] 05-08-2024 Hospital Discharge instructions Patient Education [...] Follow these instructions at home: Medicines Take syvd-qqm-jindlfw and prescription medicines only as told by [...] provider. Document Revised: 08/07/2022 Document Reviewed: 08/07/2022 [employer] Patient Education 2022 [employer]. Follow Up Care 09/11/2023 08:49:49 With:SHANNON SALGUERO, Roman Mitchell, JJ Address: [facility] [address], [place] [address]- When: Unknown [facility] 09-22-2023 Evaluation note* Encounter Date Diagnosis Assessment Notes Treatment Notes Treatment Clinical Notes Jan, Seasonal allergic rhinitis, unspecified trigger (ICD-10 - J30.2) [employer] Other 09-01-2023 Evaluation note* Encounter Date Diagnosis Assessment Notes Treatment Notes Treatment Clinical Notes Jan, Piriformis syndrome of left side (ICD-10 - G57.02) Unable to add more tramadol - likely has pain clinic [facility]. PT order printed. Add steroids. Also gave copies of home exercises. [employer] Other 06-19-2023 Evaluation note* Encounter Date Diagnosis [...] - order handwritten and given to pt [employer] [facility] 04-27-2023 NoteCONSULTATION CONSULTATION DATE: 09/05/2022 TO: [...] our patients to inform us about any jnih-eqi-xazynwl medications or herbal remedies/nutritional supplements/alternative remedies. 2. [...] options with their primary care provider.[id number] Note CONSULTATION PROCEDURE DATE: 12/25/2021 PREOPERATIVE DIAGNOSIS: [...] range of motion exercises are performed.[facility] 12-19-2021 NoteCONSULTATION CONSULTATION DATE: 12/19/2021 This [...] she was seen by the physician physician office assistant in the office and received left [...] the plan of care, [facility] Future Appointments Appointment Date:10/13/2023 12:15:00 PM Scheduled Provider:Roman ORTEGA MD Location:[facility] Appointment Type:URO Office Visit [facility] [place] Evaluation + Plan note Future Appointments Appointment Date:01/28/2025 10:15:00 AM Scheduled Provider:Roman ORTEGA MD Location:[facility] Appointment Type:URO Office Visit [facility] evaluation noteNo InformationNortCommunity Health Systems [email or web address] Other Evaluation noteNo assessment information available [facility] Work Phone: Evaluation note* Diagnosis Onset Date Resolution Status Right lumbar pain acute [facility] Work Phone: Evaluation note* Diagnosis Onset Date Resolution Status Right lumbar pain acute Medicare annual wellness visit, subsequent acute Nephrolithiasis acute Screening mammogram for breast cancer acute [facility] Work Phone: Evaluation note* Diagnosis Onset Date Resolution Status Right lumbar pain acute Medicare annual wellness visit, subsequent acute Nephrolithiasis acute Screening mammogram for breast cancer acute Laceration of left lower leg without complication acute Lumbar back pain acute [facility] Work Phone: Evaluation note* Diagnosis Dry eyes- Primary 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), bilateral Unspecified after-cataract documented in this encounter [facility] - Reported* Type Description Date Medical History migraine headache Medical History dizziness Medical History tremors Surgical History hysterectomy Surgical History bunionectomy Surgical History stapedectomy Hospitalization History see above [facility] [email or web address] Other Hospital course Narrative No data available for this section [facility] Hospital Discharge instructionsAmbulatory Orders* Referral to PT / OT / Speech (PT/OT/SP) Location: None Selected [facility] Work Phone: Hospital Discharge instructionsAmbulatory Orders* Referral to Orthopedic Surgery Location: None Selected [facility] Work Phone: Hospital Discharge instructions No data available for this section [facility] progress note No data available for this section [facility] Reason for referral (narrative)No reason for referral information availableGlenbeigh Hospital Work Phone: Summary Purpose Family History No Family History [...] 11:4 4am fu after PT-doing pt in [place] September 15, 2024 8:13am Reason for Visit Admit Date Seasonal allergic rhinitis August 18 11:44am Chief Complaint Admit Date Allergy Shot August 18, 2024 11:4 4am fu after PT-doing pt in [place] September 15, 2024 8:13am back pain October 14, 2024 9:56a m Reason for Visit Admit Date Seasonal allergic rhinitis August 18 11:44am Lumbar back pain September 15, 2024 8:13am Lumbar back pain October 14, 2024 9:56a m Chief Complaint Admit Date back pain October 14, 2024 9:56a m Surgical Clearance (Dr. Lozano) December 28, 2024 2:17pm Reason for Visit Admit Date Lumbar back pain October 14, 2024 9:56a m Skin tear of right lower leg without com plication October 14, 2024 9:56am Abnormal finding on EKG December 28 2:17pm Additional Source Comments INFORMATION SOURCE (unrecogn ized section and content) DATE CREATED AUTHOR 10/18/2022 [facility] DATE CREATED AUTHOR AUTHOR'S ORGANIZ ATION 01/06/2024 [facility] EPIC DATE CREATED AUTHOR AUTHOR'S ORGANIZ ATION 09/19/[address] [facility] DATE CREATED AUTHOR AUTHOR'S ORGANIZ ATION 12/01/2024 [facility] DATE CREATED AUTHOR AUTHOR'S ORGANIZ ATION 01/01/2025 [facility] REASON FOR VISIT (unrecogniz ed section and [...] March 16, 2024 End: March 16, 2024 Top Knitter Relationship Specialty Start Date End Date Valeriy Higgins MD [address] [place] [phone] PCP - General 12/25/22 Top Knitter Relationship Specialty Start Date End Date Vlaeriy Higgins MD [address] [address] [place] [phone] PCP - General 12/25/22 Team Status: Inactive [...] October 14, 2024 End: October 14, 2024 Team Status: Inactive Member Role Status Dates Savanna Higgins MD Primary Care Provider Active Start: October 14, 2024 End: October 14, 2024 Savanna Higgins MD Attending Provider Active St art: October 14, 2024 End: October 14, 2024 Team Status: Active Member Role Status Dates Savanna Higgins MD Primary Care Provider Active Start: December 28, 2024 Jae Fuentes MD Attending Provider Active Start: December 28, 2024 Team Status: Inactive Member Role Status Dates Savanna Higgins MD Primary Care Provider Active Start: December 28, 2024 End: December 28, 2024 Savanna Higgins MD Attending Provider Active St art: December 28, 2024 End: December 28, 2024 Goals (unrecognized section and content) Goals [...] BE BASED ON THE PRIMARY CLINICAL RECORDS. [facility]. provides no warranty or guarantee of the accuracy or completeness of information in this document.
--- NOTE | 2025-01-03 07:00 | CA_ITS ---
Patient Name: EDUARDO LEA MR#: [id number] : 1940 Exam Date: 01/03/2025 Ordering Doctor: DR RUBA HIGGINS M.D. ECHOCARDIOGRAM REPORT PROCEDURE: CA ECHO DOPPLER COMPLETE INDICATIONS: Abnormal ECG COMPARISON: None. DESCRIPTION: COMPLETE ECHOCARDIOGRAM Real-time transthoracic echocardiography with 2D, M-mode, spectral and color flow Doppler performed. QUALITY: Technical quality was good. LEFT VENTRICLE: Normal chamber size. Normal left ventricular wall thickness. LV EF: Global left ventricular systolic function is normal; visually estimated ejection fraction is 55%. No significant wall motion abnormalities. DIASTOLIC: Grade II diastolic dysfunction. ATRIAL SEPTUM: Visually appears intact. LEFT ATRIUM: Mild dilatation. RIGHT ATRIUM: Severe dilatation. RIGHT VENTRICLE: Mild dilatation. Normal right ventricular systolic function. TRICUSPID VALVE: Normal mobility and thickness. No stenosis with moderate regurgitation. Doppler studies reveal moderately (45-60) elevated right sided pressures. RVSP 53 mmHg MITRAL VALVE: Normal mobility and thickness. No evidence of mitral valve stenosis. There is no mitral annular calcification. Mild to moderate mitral regurgitation. AORTIC VALVE: Normal trileaflet appearance. No visible sclerosis. Normal leaflet mobility. No evidence of aortic valve stenosis. Mild to moderate aortic regurgitation. AORTIC ROOT: Normal diameter and appearance. Ascending aorta is normal in size. PULMONIC VALVE: Normal thickness and mobility. No stenosis. Trivial regurgitation. PERICARDIUM: No evidence of pericardial effusion. IVC: IVC is normal in size, does not collapse. CONCLUSION: 1. Global left ventricular systolic function is normal; visually estimated ejection fraction is 55% 2. The right ventricle appears enlarged with normal systolic function 3. Biatrial dilatation 4. Grade 2 diastolic dysfunction 5. Moderate tricuspid regurgitation 6. Moderately elevated right ventricular systolic pressure; RVSP 53 mmHg 7. Mild to moderate mitral regurgitation 8. Mild to moderate aortic valve regurgitation Adult Echocardiography Procedure Report Left Ventricle LVEDD (3.7 - 5.6 cm): 4.30 cm LVESD (2.2 - 4.0 cm): 3.60 cm LVIVS thickness (0.6 - 1.2 cm): 1.08 cm LVPW thickness (0.5 - 1.0 cm): 1.02 cm e': 0.06 m/s E - e': 10.44 LVOT Max Gradient: 1.96 mm[Hg] LVOT Area (cm2): 0.70 m/s Peak Velocity (LVOT): 0.70 m/s Mean Velocity (LVOT): 0.41 m/s LVOT Diameter 2.63 cm Left Ventricular Ejection Fraction: 68.88 % Left Atrium LA Volume Index (2D A2C): 38.33 ml/m2 Left Atrium Systolic Dimension: 4.52 cm Mitral Valve MV E to A Ratio: 1.14 Mitral Valve A-Wave Peak Velocity: 0.56 m/s Mitral Valve E-Wave Peak Velocity: 0.64 m/s Right Ventricle Aorta AO Root Diam: 3.10 cm Ascending Ao Diam: 3.23 cm Aortic Valve AoV Area (Peak Meng): 3.58 cm2, 3.58 cm2 AoV Area (VTI): 3.58 cm2, 3.58 cm2 Peak Velocity(Antegrade Flow): 1.06 m/s Peak Gradient(Antegrade Flow): 4.50 mm[Hg] Mean Velocity(Antegrade Flow): 0.68 m/s Mean Gradient(Antegrade Flow): 2.17 mm[Hg] Velocity Time Integral: 24.39 cm Tricuspid Valve Peak Velocity (Regurgitant Flow): 3.02 m/s, 3.34 m/s, 3.03 m/s Pulmonic Valve Peak Gradient: 1.63 mm[Hg], 1.86 mm[Hg] Right Atrium Right Atrium Systolic Pressure: 88.06 ml, 88.06 ml Dictated by: Nataliya Roper M.D. on 01/03/2025 at 11:43 Approved by: Nataliya Roper M.D. on 01/03/2025 at 11:52
--- NOTE | 2025-01-03 07:05 | NM_ITS ---
Patient Name: EDUARDO LEA MR#: [id number] : 1940 Exam Date: 01/03/2025 Ordering Doctor: DR RUBA HIGGINS M.D. RADIOLOGY REPORT PROCEDURE: NM ANGELA PERF SPECT REST STR COMPARISON: None. INDICATIONS: ABNORMAL ELECTROCARDIOGRAM, PREPROCEDURE CARDIOVASCULAR EXAM TECHNIQUE: Exam Description: Stress/Rest one day protocol gated SPECT Rest Imagin.2 mCi Tc-99m Cardiolite IV on 01/03/2025 Stress Imaging 30.5 mCi Tc-99m Cardiolite IV on 01/03/2025 Exercise Protocol: 0.4 mg Lexiscan given IV Heart Rate (bpm): Rest: 53 Max: 92 PMHR: 68 Blood Pressure: Rest: 145/68 Max: 156/77 Symptoms: Rest and peak stress ECG findings were pending, and the exercise portion of the study was pending per attending physician [facility]. For more details, please see separate cardiac stress test report. FINDINGS: QUALITY OF STUDY: Good PERFUSION DEFECT: LOCATION: N/A SIZE: N/A SEVERITY: N/A TYPE: N/A WALL MOTION: Normal wall motion LV SIZE: 65 mL. TID / TCD: 0.9 LVEF: Calculated EF 71%. SUMMARY: Myocardial perfusion imaging study CONCLUSION: 1. Myocardial perfusion is normal 2. Global left ventricular systolic function is hyperdynamic; ejection fraction is 71% 3. No significant transient ischemic dilation Dictated by: Nataliya Roper M.D. on 01/03/2025 at 12:04 Approved by: Nataliya Roper M.D. on 01/03/2025 at 12:06
--- NOTE | 2025-01-03 08:46 | PC.NURSE ---
Nursing Note Cardiac Stress Test Reviewed: Medication, allergies and patient history reviewed. Stress Test: [x ] Patient tolerated stress test well. [ ] Patient unable to tolerate walking on treadmill. Switched to Lexiscan stress test. [x ] No chest pain noted per patient [ ] Chest pain that resolved prior to leaving stress lab. [x ] No dyspnea noted. [ ] Dyspnea that resolved prior to leaving stress lab. [ x] Patient left stress lab asymptomatic and hemodynamically stable. [ ] Patient taken to the Emergency Room due to non-resolving symptoms following stress test. [ ] Patient achieved target heart rate. [ ] Patient unable to achieve target heart rate. [ ] Aminophylline administered as reversal agent to Lexiscan (Regadenoson). [ ] Nitro administered. Nursing Comments:Pt had Lexiscan test done. No CP and no SOB. Only had some general heaviness after Tracy that resolved within 5 minutes. Pt ambulated to cafeteria for breakfast prior to second set of images.
[2025-01-03] MEDS: REGADENOSON 0.4 MG/5 ML SYRINGE IV (09:31)
--- NOTE | 2025-01-03 10:43 | PM.STRESS ---
Stress Test Stress Test Allergies Allergy/AdvReac Type Severity Reaction Status Date / Time No Known Drug Allergies Allergy Verified 03/30/24 09:38 Requesting physician: Savanna Guajardo Procedure: Lexiscan pharmacological stress test General Information: Reason for Stress Test: [Pre-operative evaluation, abnormal ECG] Cardiac History and Risk Factors: [] Resting 12 - Lead Electrocardiogram: Normal sinus rhythm Possible left atrial enlargement Left axis deviation Septal infarct age indeterminate Abnormal ECG Stress Test: Protocol: [Lexiscan stress test] Exercise Capacity: [N/A] Blood Pressure Response: [N/A] Rhythm: [Sinus] ST - Response: [No ST T wave changes] Patient Response: [No chest pain] Interpretation: 1. No ischemic ST T wave changes on Lexiscan stress test 2. Nuclear images are to be read, interpreted and reported seperately
== END 2025-01-03 06:48 | disposition home or self-care (01) ==
LOC: CARD 06:48
PROVIDERS: PCP Family Medicine; Visit Provider Family Medicine
DX: R94.31 Abnormal electrocardiogram [ECG] [EKG] (principal)
CPT/HCPCS: 78452; 93017; 93306; A9500; J2785

== ENCOUNTER 2025-02-03 09:06 | Outpatient (OUT) | payer MEDICARE, SELFPAY ==
--- OUTSIDE RECORDS SUMMARY | 2025-02-03 09:08 | XMS_ITS | Patient Health Record ---
Author Organization [facility] Address [address] [place] [address] Care Team Providers Care Tar Leveler Name Role Phone Savanna Guajardo M.D. Primary Care Provider Unavail able Jae Alaniz Unavailable [phone] [employer] mahajan Unavailable [phone] Allergies No Known Allergies Results Component Value Reference Range Notes Lactic Acid, Random Reviewed date:01/05/2025 01:26:10 PM Interpretation: Performing Lab: Notes/Report: [address] [address] Lactic Acid Lvl 1.9 0.5-2.0 mmol/L POC Glucose Random Reviewed date:01/05/2025 01:26:10 PM Interpretation: Performing Lab: Notes/Report: [address] [address] POC Gluc Random 120 70-99 mg/dL Hgb Reviewed date:01/05/2025 01:26:15 PM Interpretation: Performing Lab: Notes/Report: [address] [address] Hgb 9.7 12.0-16.0 g/dL Hct 28.6 36.0-46.0 % Hep Func Panel Reviewed date:01/05/2025 01:26:10 PM Interpretation: Performing Lab: Notes/Report: [address] [address] Bili Total 0.9 0.3-1.0 mg/dL Bili Direct 0.10 0.03-0.18 mg/dL Bili Indirect 0.8 0.0-1.0 mg/dL Alk Phos 60 34-104 IU/L AST 30 13-39 IU/L ALT 15 7-52 IU/L Total Protein 5.5 6.0-8.3 g/dL Albumin Lvl 3.6 3.7-5.3 g/dL XR OR Spine Lumbar Crossfire Reviewed date:01/05/2025 01:26:10 PM Interpretation: Performing Lab: Notes/Report: Patient Name: Eduardo Lea This report was not created by a radiologist, physician, or advanced practice provider. ABSC Auto Reviewed date:01/05/2025 01:26:10 PM Interpretation: Performing Lab: Notes/Report: [facility] (UNKNOWN) [address] [place] [address] ABSC Auto Antibody Screen: Negative ABSC ABO/Rh Reviewed date:01/05/2025 01:26:10 PM Interpretation: Performing Lab: Notes/Report: [facility] (UNKNOWN) [address] [place] [address] ABO/Rh ABO/Rh: A POS Surgery Scheduling (Not yet reviewed by provider) Interpretation: Performing Lab: Notes/Report: Primary Insurance Company: MEDICARE AETNA Surgeon/Assist: ST SCHAFER/PB OR MARK Surgery Location: [facility] Surgery Date & Time: 01/04/25 @ 12:30PM Hosp arrival time day of: 10:30AM Surgery End Time: 3:30PM Procedure: L2-S1 DECOMPRESSION AND FUSION, L5-S1 TLIF Special Equipment: SSEP, CELL SAVER, PRONE, BHARATH TABLE, SURGALIGN Diagnosis: M48.062 STENOSIS Admission Type: OUTPATIENT Anesthesia Type/CPNB: GENERAL Post-op Appointment Date: 02/17/25 @ 10:10AM ANDREW Lab Location: Lab Date/Time: [facility] Secretary: CASSIDY Sanchez Physician: GISELA Sanchez Appt Date/T @ 2:30PM History & Physical Appointment Date/: 12/31/24 @ 9:50AM CHOWCHILLA CBC w/ Diff Reviewed date:01/05/2025 09:17:13 AM Interpretation: Performing Lab: Notes/Report: [facility] [address] [place] [address] WBC 8.7 4.5-11.0 x10*3/mcL RBC 3.05 3.80-5.20 x10*6/mcL Hgb 9.9 12.0-16.0 g/dL Hct 29.0 36.0-46.0 % MCV 95.0 80.0-100.0 fL MCH 32.3 27.0-35.0 pg MCHC 34.0 31.0-37.0 % Platelet 149 150-450 x10*3/mcL RDW 13.1 11.6-14.8 % Mean Platelet Volume 8.3 6.7-10.6 fL Diff Auto Reviewed date:01/05/2025 09:17:13 AM Interpretation: Performing Lab: Notes/Report: [address] [address] Neutro Auto 78.9 47.2-70.8 % Lymph Auto 10.6 27.2-40.8 % [place] Auto 10.2 3.7-11.9 % Eos Auto 0.1 0.0-5.4 % Basophil Auto 0.2 0.0-1.5 % Neutro Absolute 6.9 1.8-7.7 x10*3/mcL Lymph Absolute 0.9 1.0-4.8 x10*3/mcL [place] Absolute 0.9 0.1-1.1 x10*3/mcL Eos Absolute 0.0 0.0-0.4 x10*3/mcL Baso Absolute 0.0 0.0-0.2 x10*3/mcL Magnesium Reviewed date:01/05/2025 01:26:10 PM Interpretation: Performing Lab: Notes/Report: [address] [address] Magnesium Lvl 1.8 1.7-2.4 mg/dL Hemoglobin Reviewed date:01/05/2025 01:26:10 PM Interpretation: Performing Lab: Notes/Report: [address] [address] Hgb 8.9 12.0-16.0 g/dL HSTI Random Reviewed date:01/05/2025 01:26:10 PM Interpretation: Performing Lab: Notes/Report: [address] [address] hs Troponin I 504 0-15 ng/L Critical Result Notification Result called to and read back by: Tyron Wise RN 6NU Called date and time: 01/05/2025 05:10:49 EDT (First, Last, Title, Location) Basic Metabolic Profile Reviewed date:01/05/2025 09:17:13 AM Interpretation: Performing Lab: Notes/Report: [address] [address] Sodium Lvl 135 136-145 mmol/L Potassium Lvl 4.5 3.4-4.8 mmol/L Chloride 103 98-107 mmol/L CO2 24 21-31 mmol/L Anion Gap 8 4-12 mmol/L Glucose Lvl 146 70-99 mg/dL BUN 16 7-25 mg/dL Creatinine Lvl 0.94 0.60-1.20 mg/dL BUN Crea Ratio 17.0 15.0-25.0 ratio Calcium Lvl 7.9 8.6-10.3 mg/dL .eGFR Reviewed date:01/05/2025 09:17:13 AM Interpretation: Performing Lab: Notes/Report: Order added by Discern rule [address] [address] Estimated GFR 59 >=60 mL/min/1.73m? ? = -0.241 (females) or -0.302 (males) eGFR (estimated glomerular filtration rate) = mL/min/1.73 m2 eGFR = 142 X min(SCr/?, 1)? X max(SCr /?, 1)-1.200 X 0.9938Age X 1.012 [if female] Stage 1 Normal to mild loss of kidney function ? 90 Stage 5 Kidney failure < 15 max = indicates the maximum of SCr/? or 1 ? = 0.7 (females) or 0.9 (males) Stage 3a Mild to moderate loss of kidney function 45 - 59 GFR calculated using the CKD-Epi Creatinine Equation (2020): Stage 4 Severe loss of kidney function 15 - 29 Abbreviations/Units: Stages of Chronic Kidney Disease GFR Age = years SCr (standardized serum creatinine) = mg/dL Stage 3b Moderate to severe loss of kidney function 30 - 45 Stage 2 Mild loss of kidney function 60 - 89 min = indicates the minimum of SCr/? or 1 [facility] have implemented the eGFR calculation approach that does not have a coefficient for race and that conforms to the NKF-ASN Task Force Recommendations. HSTI Random Reviewed date:01/05/2025 01:26:15 PM Interpretation: Performing Lab: Notes/Report: [facility] [address] [place] [address] hs Troponin I 561 0-15 ng/L Result called to and read back by: Doretha Arana OVEN LABORER Critical Result Notification (First, Last, Title, Location) Called date and time: 01/05/2025 06:45:33 EDT C Bld Reviewed date:01/20/2025 11:15:22 AM Interpretation: Performing Lab: Notes/Report: [facility] (DEFAULT) [address] [place] [address] [address] Note [facility] Patient Name: Eduardo Lea : 1940 C Bld WAS ABLE TO OBTAIN 1 SET OF B/C 01/05/2025 04:34:28 EDT D.R ORGANISM ORGANISM ID: 1 Final Gram Stain Streptococcus salivarius isolated in 1 of 2 blood culture bottles drawn. (Aerobic bottle) -- SUSCEPTIBILITY - ANTIBIOTIC INTERPRETATION CURT STATUS Gram Positive Cocci seen on gram stain. Strsal C Bld See Below For Report ORGANISM ORGANISM ID: 1 Final Gram Stain Streptococcus salivarius isolated in 1 of 2 blood culture bottles drawn. (Aerobic bottle) -- SUSCEPTIBILITY - ANTIBIOTIC INTERPRETATION CURT STATUS Gram Positive Cocci seen on gram stain. Strsal C Bld . ORGANISM ORGANISM ID: 1 Final Gram Stain Streptococcus salivarius isolated in 1 of 2 blood culture bottles drawn. (Aerobic bottle) -- SUSCEPTIBILITY - ANTIBIOTIC INTERPRETATION CURT STATUS Gram Positive Cocci seen on gram stain. Strsal C Bld Verigine nucleic aci d test negative for the following organisms DNA: Staphlococcus species, Staph. aureus, Staph. epidermidis, Staph. lugdenensis, Streptococcus species, Strep. pneumoniae, Strep. pyogenes, Strep. agalactiae, Strep. anginosis group, Enterococcus faecalis, Enterococcus faecium, and Listeria species. Conventional identification and susceptibility to follow. ORGANISM ORGANISM ID: 1 Final Gram Stain Streptococcus salivarius isolated in 1 of 2 blood culture bottles drawn. (Aerobic bottle) -- SUSCEPTIBILITY - ANTIBIOTIC INTERPRETATION CURT STATUS Gram Positive Cocci seen on gram stain. Strsal C Bld . ORGANISM ORGANISM ID: 1 Final Gram Stain Streptococcus salivarius isolated in 1 of 2 blood culture bottles drawn. (Aerobic bottle) -- SUSCEPTIBILITY - ANTIBIOTIC INTERPRETATION CURT STATUS Gram Positive Cocci seen on gram stain. Strsal C Bld The Verigene Gram Positive Blood Culture Nucleic Acid Test detects the presence of DNA from S.aureus, S.epidermidis, S.lugdenensis, Coagulase Negative Staph species, E.faecalis, E.faecium, S.agalactiae, S.pyogenes, S.anginosis group, S.pneumoniae, Streptococcus species, and Listeria directly. from blood culture specimesn. The test also detects the presence of several antimicrobial resistance markers: mecA for S.aureus and S.epidermidis as well as Boubacar and vanB for E.faecalis and E.faecium. ORGANISM ORGANISM ID: 1 Final Gram Stain Streptococcus salivarius isolated in 1 of 2 blood culture bottles drawn. (Aerobic bottle) -- SUSCEPTIBILITY - ANTIBIOTIC INTERPRETATION CURT STATUS Gram Positive Cocci seen on gram stain. Strsal C Bld . ORGANISM ORGANISM ID: 1 Final Gram Stain Streptococcus salivarius isolated in 1 of 2 blood culture bottles drawn. (Aerobic bottle) -- SUSCEPTIBILITY - ANTIBIOTIC INTERPRETATION CURT STATUS Gram Positive Cocci seen on gram stain. Strsal C Bld The presence of nucl eic acids in clinical specimens does not exclude the possibility of multiple organisms causing an infection. Negative results do not rule out the possibility of infection with other organisms. The detection of nucleic acids encoding genes for antibiotic resistance does not always correspond to phenotypic antibiotic resistance. Some bacterial species may carry additional antibiotic resistance not tested for by this assay. Results of nucleic acid testing are preliminary and will be verified by culture and sensitivity tests. ORGANISM ORGANISM ID: 1 Final Gram Stain Streptococcus salivarius isolated in 1 of 2 blood culture bottles drawn. (Aerobic bottle) -- SUSCEPTIBILITY - ANTIBIOTIC INTERPRETATION CURT STATUS Gram Positive Cocci seen on gram stain. Strsal C Bld See Below For Report ORGANISM ORGANISM ID: 1 Final Gram Stain Streptococcus salivarius isolated in 1 of 2 blood culture bottles drawn. (Aerobic bottle) -- SUSCEPTIBILITY - ANTIBIOTIC INTERPRETATION CURT STATUS Gram Positive Cocci seen on gram stain. Strsal C Bld See Below For Report ORGANISM ORGANISM ID: 1 Final Gram Stain Streptococcus salivarius isolated in 1 of 2 blood culture bottles drawn. (Aerobic bottle) -- SUSCEPTIBILITY - ANTIBIOTIC INTERPRETATION CURT STATUS Gram Positive Cocci seen on gram stain. Strsal C Bld Time to Initial Positive = 20 hours 38 minutes ORGANISM ORGANISM ID: 1 Final Gram Stain Streptococcus salivarius isolated in 1 of 2 blood culture bottles drawn. (Aerobic bottle) -- SUSCEPTIBILITY - ANTIBIOTIC INTERPRETATION CURT STATUS Gram Positive Cocci seen on gram stain. Strsal C Bld . ORGANISM ORGANISM ID: 1 Final Gram Stain Streptococcus salivarius isolated in 1 of 2 blood culture bottles drawn. (Aerobic bottle) -- SUSCEPTIBILITY - ANTIBIOTIC INTERPRETATION CURT STATUS Gram Positive Cocci seen on gram stain. Strsal C Bld Test: positive blood culture ORGANISM ORGANISM ID: 1 Final Gram Stain Streptococcus salivarius isolated in 1 of 2 blood culture bottles drawn. (Aerobic bottle) -- SUSCEPTIBILITY - ANTIBIOTIC INTERPRETATION CURT STATUS Gram Positive Cocci seen on gram stain. Strsal C Bld Test Completion: 01/06/2025 01:43:12 ORGANISM ORGANISM ID: 1 Final Gram Stain Streptococcus salivarius isolated in 1 of 2 blood culture bottles drawn. (Aerobic bottle) -- SUSCEPTIBILITY - ANTIBIOTIC INTERPRETATION CURT STATUS Gram Positive Cocci seen on gram stain. Strsal C Bld Results called to Candida Levine RN at [facility] by AD on 01/06/2025 01:45:34 ORGANISM ORGANISM ID: 1 Final Gram Stain Streptococcus salivarius isolated in 1 of 2 blood culture bottles drawn. (Aerobic bottle) -- SUSCEPTIBILITY - ANTIBIOTIC INTERPRETATION CURT STATUS Gram Positive Cocci seen on gram stain. Strsal C Bld Critical results, patient name and location verbally confirmed and acceptable? yes ORGANISM ORGANISM ID: 1 Final Gram Stain Streptococcus salivarius isolated in 1 of 2 blood culture bottles drawn. (Aerobic bottle) -- SUSCEPTIBILITY - ANTIBIOTIC INTERPRETATION CURT STATUS Gram Positive Cocci seen on gram stain. Strsal C Bld See Below For Report ORGANISM ORGANISM ID: 1 Final Gram Stain Streptococcus salivarius isolated in 1 of 2 blood culture bottles drawn. (Aerobic bottle) -- SUSCEPTIBILITY - ANTIBIOTIC INTERPRETATION CURT STATUS Gram Positive Cocci seen on gram stain. Strsal C Bld POS Streptococcus salivarius ORGANISM ORGANISM ID: 1 Final Gram Stain Streptococcus salivarius isolated in 1 of 2 blood culture bottles drawn. (Aerobic bottle) -- SUSCEPTIBILITY - ANTIBIOTIC INTERPRETATION CURT STATUS Gram Positive Cocci seen on gram stain. Strsal C Bld Ampicillin I 4 V ORGANISM ORGANISM ID: 1 Final Gram Stain Streptococcus salivarius isolated in 1 of 2 blood culture bottles drawn. (Aerobic bottle) -- SUSCEPTIBILITY - ANTIBIOTIC INTERPRETATION CURT STATUS Gram Positive Cocci seen on gram stain. Strsal C Bld Penicillin I 1 V ORGANISM ORGANISM ID: 1 Final Gram Stain Streptococcus salivarius isolated in 1 of 2 blood culture bottles drawn. (Aerobic bottle) -- SUSCEPTIBILITY - ANTIBIOTIC INTERPRETATION CURT STATUS Gram Positive Cocci seen on gram stain. Strsal C Bld Cefotaxime S <=0.12 V ORGANISM ORGANISM ID: 1 Final Gram Stain Streptococcus salivarius isolated in 1 of 2 blood culture bottles drawn. (Aerobic bottle) -- SUSCEPTIBILITY - ANTIBIOTIC INTERPRETATION CURT STATUS Gram Positive Cocci seen on gram stain. Strsal C Bld Ceftriaxone S 0.25 V ORGANISM ORGANISM ID: 1 Final Gram Stain Streptococcus salivarius isolated in 1 of 2 blood culture bottles drawn. (Aerobic bottle) -- SUSCEPTIBILITY - ANTIBIOTIC INTERPRETATION CURT STATUS Gram Positive Cocci seen on gram stain. Strsal C Bld Erythromycin R >=8 V ORGANISM ORGANISM ID: 1 Final Gram Stain Streptococcus salivarius isolated in 1 of 2 blood culture bottles drawn. (Aerobic bottle) -- SUSCEPTIBILITY - ANTIBIOTIC INTERPRETATION CURT STATUS Gram Positive Cocci seen on gram stain. Strsal C Bld Linezolid S <=2 V ORGANISM ORGANISM ID: 1 Final Gram Stain Streptococcus salivarius isolated in 1 of 2 blood culture bottles drawn. (Aerobic bottle) -- SUSCEPTIBILITY - ANTIBIOTIC INTERPRETATION CURT STATUS Gram Positive Cocci seen on gram stain. Strsal C Bld Vancomycin S 1 V ORGANISM ORGANISM ID: 1 Final Gram Stain Streptococcus salivarius isolated in 1 of 2 blood culture bottles drawn. (Aerobic bottle) -- SUSCEPTIBILITY - ANTIBIOTIC INTERPRETATION CURT STATUS Gram Positive Cocci seen on gram stain. Strsal Diff Auto Reviewed date:01/06/2025 10:56:01 AM Interpretation: Performing Lab: Notes/Report: [facility] [address] [place] [address] Neutro Auto 71.3 47.2-70.8 % Lymph Auto 14.5 27.2-40.8 % [place] Auto 13.4 3.7-11.9 % Eos Auto 0.6 0.0-5.4 % Basophil Auto 0.2 0.0-1.5 % Neutro Absolute 5.9 1.8-7.7 x10*3/mcL Lymph Absolute 1.2 1.0-4.8 x10*3/mcL [place] Absolute 1.1 0.1-1.1 x10*3/mcL Eos Absolute 0.1 0.0-0.4 x10*3/mcL Baso Absolute 0.0 0.0-0.2 x10*3/mcL C Bld Reviewed date:01/20/2025 11:15:22 AM Interpretation: Performing Lab: Notes/Report: [address] [address] Note [facility] Patient Name: Eduardo Lea : 1940 C Bld See Below For Report No growth at 5 days. Final Basic Metabolic Profile Reviewed date:01/06/2025 10:56:01 AM Interpretation: Performing Lab: Notes/Report: [place] [id number] Sodium Lvl 139 136-145 mmol/L Potassium Lvl 3.8 3.4-4.8 mmol/L Chloride 106 98-107 mmol/L CO2 27 21-31 mmol/L Anion Gap 6 4-12 mmol/L Glucose Lvl 96 70-99 mg/dL BUN 10 7-25 mg/dL Creatinine Lvl 0.68 0.60-1.20 mg/dL BUN Crea Ratio 14.7 15.0-25.0 ratio Calcium Lvl 7.8 8.6-10.3 mg/dL Diff Auto Reviewed date:01/07/2025 08:46:00 AM Interpretation: Performing Lab: Notes/Report: [address] [address] Neutro Auto 67.5 47.2-70.8 % Lymph Auto 15.3 27.2-40.8 % [place] Auto 14.9 3.7-11.9 % Eos Auto 1.9 0.0-5.4 % Basophil Auto 0.4 0.0-1.5 % Neutro Absolute 4.7 1.8-7.7 x10*3/mcL Lymph Absolute 1.1 1.0-4.8 x10*3/mcL [place] Absolute 1.0 0.1-1.1 x10*3/mcL Eos Absolute 0.1 0.0-0.4 x10*3/mcL Baso Absolute 0.0 0.0-0.2 x10*3/mcL .eGFR Reviewed date:01/06/2025 10:56:01 AM Interpretation: Performing Lab: Notes/Report: [address] [address] Estimated GFR >60 >=60 mL/min/1.73m? Stage 5 Kidney failure < 15 Stage 4 Severe loss of kidney function 15 - 29 GFR calculated using the CKD-Epi Creatinine Equation (2020): SCr (standardized serum creatinine) = mg/dL Stage 3b Moderate to severe loss of kidney function 30 - 45 eGFR (estimated glomerular filtration rate) = mL/min/1.73 m2 Stage 3a Mild to moderate loss of kidney function 45 - 59 Stage 2 Mild loss of kidney function 60 - 89 min = indicates the minimum of SCr/? or 1 [facility] have implemented the eGFR calculation approach that does not have a coefficient for race and that conforms to the NKF-ASN Task Force Recommendations. Stage 1 Normal to mild loss of kidney function ? 90 Age = years eGFR = 142 X min(SCr/?, 1)? X max(SCr /?, 1)-1.200 X 0.9938Age X 1.012 [if female] ? = -0.241 (females) or -0.302 (males) ? = 0.7 (females) or 0.9 (males) Abbreviations/Units: max = indicates the maximum of SCr/? or 1 Stages of Chronic Kidney Disease GFR CBC w/ Diff Reviewed date:01/06/2025 10:56:01 AM Interpretation: Performing Lab: Notes/Report: [address] [address] WBC 8.3 4.5-11.0 x10*3/mcL RBC 2.60 3.80-5.20 x10*6/mcL Hgb 8.3 12.0-16.0 g/dL Hct 24.9 36.0-46.0 % MCV 95.8 80.0-100.0 fL MCH 31.9 27.0-35.0 pg MCHC 33.3 31.0-37.0 % Platelet 94 150-450 x10*3/mcL RDW 13.0 11.6-14.8 % Mean Platelet Volume 8.6 6.7-10.6 fL .eGFR Reviewed date:01/07/2025 08:46:00 AM Interpretation: Performing Lab: Notes/Report: [address] [address] Estimated GFR >60 >=60 mL/min/1.73m? eGFR (estimated glomerular filtration rate) = mL/min/1.73 m2 ? = -0.241 (females) or -0.302 (males) Stage 5 Kidney failure < 15 Stage 1 Normal to mild loss of kidney function ? 90 max = indicates the maximum of SCr/? or 1 GFR calculated using the CKD-Epi Creatinine Equation (2020): [facility] have implemented the eGFR calculation approach that does not have a coefficient for race and that conforms to the NKF-ASN Task Force Recommendations. ? = 0.7 (females) or 0.9 (males) Stage 3a Mild to moderate loss of kidney function 45 - 59 Stages of Chronic Kidney Disease GFR Stage 4 Severe loss of kidney function 15 - 29 Abbreviations/Units: Stage 2 Mild loss of kidney function 60 - 89 min = indicates the minimum of SCr/? or 1 SCr (standardized serum creatinine) = mg/dL Stage 3b Moderate to severe loss of kidney function 30 - 45 Age = years eGFR = 142 X min(SCr/?, 1)? X max(SCr /?, 1)-1.200 X 0.9938Age X 1.012 [if female] CBC w/ Diff Reviewed date:01/07/2025 08:46:00 AM Interpretation: Performing Lab: Notes/Report: [address] [address] WBC 7.0 4.5-11.0 x10*3/mcL RBC 2.42 3.80-5.20 x10*6/mcL Hgb 7.8 12.0-16.0 g/dL Hct 22.6 36.0-46.0 % MCV 93.4 80.0-100.0 fL MCH 32.2 27.0-35.0 pg MCHC 34.5 31.0-37.0 % Platelet 144 150-450 x10*3/mcL RDW 13.0 11.6-14.8 % Mean Platelet Volume 8.1 6.7-10.6 fL Basic Metabolic Profile Reviewed date:01/07/2025 08:46:00 AM Interpretation: Performing Lab: Notes/Report: [facility] [address] [place] [address] Sodium Lvl 139 136-145 mmol/L Potassium Lvl 3.7 3.4-4.8 mmol/L Chloride 105 98-107 mmol/L CO2 30 21-31 mmol/L Anion Gap 4 4-12 mmol/L Glucose Lvl 95 70-99 mg/dL BUN 6 7-25 mg/dL Creatinine Lvl 0.65 0.60-1.20 mg/dL BUN Crea Ratio 9.2 15.0-25.0 ratio Calcium Lvl 8.0 8.6-10.3 mg/dL Reason For Referral Reason APPROVED............ .............NOT SCHEDULED.............................AETNA MCR CT myelogram lumbar spine at [facility]) Diagnosis 1 Lumbar pain (M54.50) Diagnosis 2 Degenerative scolios is (M41.50) Referral Organization [facility] Referring Provider First Name Jae Referring Provider Last Name [facility] Schafer Referring Provider Speciality Orthopedic Surgery Referred Organization [facility] Referred Address [address] [place] [address], Procedure 1 CT lumbar spine; W/ contrast material (569[address]) General Notes Baylee Aponte 10/10 11:00:03 AM >, Lori Kumari 10/22/2024 11:04:40 AM > WAITING ON TODAY'S OFFICE NOTEQuoc Kayla 10/26/2024 09:33:55 AM > AUTHORIZATION # [id number] APPROVED AND VALID 10/26/24-04/24/25 PER BONNY. SCANNED INTO CHART AND FAXED TO FACILITY.Fadi Sara 10/26/2024 01:57:35 PM > faxed to [facility]- [phone] Referral Priority Routine Reason APPROVED OUTPATIENT...................................01/04/25............................ .......AET[employer] MCR L2-S1 DECOMPRESSION AND FUSION , L5-S1 TLIF 85327, [address], [address]127 x3, 53016, 77186 x2, 36142, [address], [address] Diagnos is 1 Degenerative scoliosis (M41.50) Diagnos is 2 Lumbar stenosis with neurogenic claudica tion (M48.062) Diagnos is 3 Scoliosis of lumbar spine, unspecified s coliosis type (M41.9) Referra l [facility] Referri ng Provide r First Name Jae Referri ng Provide r Last Name [facility] Schafer Referri clyde Provide r Special ity Orthopedic Surgery Referre d [facility] Referre d Address [address] [place] [id number] [facility], Procedu re 1 Arthrodesis, PLIF w/ PSF including karli ectomy and/or discectomy, sufficient to prepare interspace (other than for decompression), single interspace and segment; lumbar () Procedu re 2 GARCIA FACETC/FRMT ARTHRD LUM 1 (67843) Procedu re 3 Arthrodesis single, each addn'l level, p osteriolateral technique (25835) Procedu re 4 Laminectomy, facetectomy and foraminotom y single lumbar (65632) Procedu re 5 Laminectomy, facetectomy and foraminotom y additional vertebral segment (63484) Procedu re 6 Posterior segmental instrumentation, 3 t o 6 segments (79305) Procedu re 7 INSJ BIOMECHANICAL DEVICE (29847) Procedu re 8 Autograft for spine surgery only; local obtained from same incision () General Notes Cassidy Stephens 12/23/2024 01:18:19 PM >, Lori Kumari 12/23/2024 03:09:24 PM > AUTHORIZATION REQUEST SUBMITTED OUTPATIENT VIA [facility] WITH CLINICALS AND AETNA SPINE FORM, PENDING AUTHORIZATION # [id number]. TURN AROUND TIME IS 14 DAYS., Lori Kumari 12/29/2024 10:54:53 AM > PENDING PER [facility]., Lori Kumari 12/31/2024 09:14:43 AM > AUTHORIZATION # [id number] APPROVED OUTPATIENT AND VALID 12/30/24-07/02/25 PER [facility]. SCANNED INTO CHART. PLEASE CHANGE TO OUTPATIENT AND SEND BACK., Cassidy Stephens 12/31/2024 12:14:44 PM >CHANGED TO OUTPATIENT, Lori Kumari 12/31/2024 12:22:06 PM > THANK YOU, FAXED TO [facility]. Referra l Priorit y Urgent Medications Medication SIG (Take, Route, Fr equency, Duration) Notes Start Date End Date Status atenolol 50 mg 1 tab(s) Activ e diclofenac Active Flexeril 10 mg 1 tab(s) orally 3 ti mes a day prn muscle spasms 12/31/2024 Active traMADol 50 mg 1 tab(s) Activ e [...] Problem Status W/U Status Risk Notes Problem Acquired spondylolisthesis (401592409) Spondylolisthesis , lumbar region (M43.16) Active confirmed Problem [id number] Scoliosis of lumbar spine, unspecified scoliosis type (M41.9) Active confirmed Problem 65109317 Lumbar stenosis with neurogenic claudication (M48.062) Active confirmed Problem 246038728 Degenerative scoliosis (M41.50) Active confirmed Problem Other intervertebral disc degeneration, 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) Active confirmed Vital Signs Height 5'5 in 10/22/2024 Weight 125 lbs 10/22/2024 BMI 20.8 10/22/2024 Procedures Procedure Date Ordered Date Performed Result Body Sit e EKG 12/17/2024 N/A Encounters Encounter Location Date Provider Diagnosis [facility] [address] [place] [address] 10/22/2024 Mark Diglio Lumbar pain M54.50 ; Degenerative scoliosis M41.50 and Other intervertebral disc degeneration, lumbar region with discogenic back pain and lower extremity pain M51.362 [facility] [address] [place] [id number] 12/17/2024 Selvon Corbin Lumbar stenosis with neurogenic claudication M48.062 and Scoliosis of lumbar spine, unspecified scoliosis type M41.9 [facility] [address] [place] [id number] 12/31/2024 Mark Diglio Degenerative scolios is M41.50 and Lumbar stenosis with neurogenic claudication M48.062 [facility] [address] [place], [place] [id number] 01/04/2025 Selvon Corbin Lumbar stenosis with neurogenic claudication M48.062 ; Other intervertebral disc degeneration, lumbosacral region with discogenic back pain and lower extremity pain M51.372 and Spondylolisthesis, lumbar region M43.16 [facility] [address] [place] [address] 01/31/2025 Selvon Corbin Assessments Encounter Date Diagnosis (ICD Code) Assessment [...] unspecified scoliosis type (ICD-10 - M41.9) Salvador Eduardo presents with back and hip [...] with neurogenic claudication (ICD-10 - M48.062) Salvador Eduardo presents with back and hip [...] of life, surgical intervention is being considered. 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 If we can be of further service to your patients with disorders of the spine, cervical, thoracic, or lumbar, please do not hesitate to contact Dr. Sheth. Best regards, Salvador Ocasio presents with back and hip [...] intervention is being considered. Plan Of Treatment Pending Test Test Name Order Date Chest 2 views - [id number] 12/17/2024 Lumbar spine, 4v flex ext - [id number] 2024 CBC 12/17/2024 PT/PTT 12/17/2024 BMP 12/17/2024 Surgery Scheduling 12/23/2024 DME - Lumbar Support, Surgical OTS 12/31 MRSA (Bilateral Nares) PCR 12/17/2024 EKG 12/17/2024 CT Myelogram - Lumbar Spine 10/22/2024 Next Appt Details Provider Name:Kandijonathan Soumya air, 02/17/2025 10:10:00 AM, [address] [place] [address], [id number], Insurance Providers Payer Name Payer Address Payer Phone Subscriber Number Group Number Insured Name Patient Relationship to Insured Coverage Start Date Coverage End Date Medicare [employer] [address] [place] [phone] [id number] EDUARDO LEA Self - patient is the insured Medical (General) History Medical History History ICD Code Kidney stones - Degenerative scoliosis - Spinal arthritis with bone spurs Surgical History Surgery Date(Month/Year) L2-S1 laminectomy, PSF 01/04/2025 Bunionectomy 09/18/1995 Disc removed 08/14/1984
--- NOTE | 2025-02-03 09:10 | US_ITS ---
The [address] [address] Patient Name: EDUARDO LEA MRN: [id number] date: 1940 Sex: F Assigned Patient Location: [place] Current Patient Location: US Accession/Order Number: [id number] Exam Date: 02/03/2025 09:15 Report Date: 02/03/2025 10:11 At the request of: STAN ORTEGA MD Procedure: US renal BI BILATERAL RENAL AND BLADDER ULTRASOUND CLINICAL HISTORY: Kidney Stones COMPARISON: None FINDINGS: Estimation of renal size is approximately 8.6 cm on the right and 10.4 cm on the left. No contour deforming mass or hydronephrosis. Likely bilateral nephrolithiasis. Largest stone measuring 4 mm within each kidney. 2.1 cm cyst left kidney. The urinary bladder is partially distended with a volume of 493 ml. No shadowing stone or focal lesion. US/US renal BI IMPRESSION: BILATERAL NEPHROLITHIASIS WITHOUT HYDRONEPHROSIS TO SUGGEST OBSTRUCTION. Impression dictated by: Kvng Tidwell Jr., D.O. 02/03/2025 10:11 AM Dictation Location: [place] [address] Electronically authenticated by: [id number] Y Date: 02/03/2025 10:11
--- OUTSIDE RECORDS SUMMARY | 2025-02-03 09:11 | XMS_ITS | CCD ---
Author Organization [facility] Care Team Providers Care Planning Management It Specialist Name Role Phone GISELA, DR RUBA Willis Primary Care Unavailable ROSITA ., DR VALENTINA Rothman Attending Unavailable BECKER ., DR VALENTINA Rothman Admitting Unavailable HIGGINS, DR RUBA Willis Primary Care Unavailable BECKER ., DR VALENTINA Rothman Attending Unavailable BECKER ., DR VALENTINA Rothman Admitting Unavailable HIGGINS, DR RUBA Willis Primary Care Unavailable BECKER ., DR VALENTINA Rothman Attending Unavailable BECKER ., DR VALENTINA Rothman Admitting Unavailable BECKER ., DR VALENTINA Rothman Admitting Unavailable BECKER ., DR VALENTINA Rothman Attending Unavailable HIGGINS, DR RUAB Willis Consulting Unavailable HIGGINS, DR RUBA Willis Primary Care Unavailable BECKER ., DR VALENTINA Rothman Consulting Unavailable LAKSHMIPATHY ., NARPAULINA Admitting Jessy vailable LAKSHMIPATHY ., NARJOSHUAATH Consulting Jessy vailable LAKSHMIPATHY ., AJ Attending Jessy vailable HIGGINS, DR RUBA Willis Primary Care Unavailable HIGGINS, DR RUBA Willis Primary Care Unavailable HIGGINS, DR RUBA Willis Attending Unavailable [place], DR MINE Barriga Consulting Unavailable GISELA, DR URBA Willis Admitting Unavailable HIGGINS, DR RUBA Willis Consulting Unavailable HIGGINS, DR RUBA Willis Attending Unavailable HIGGINS, DR RUBA Willis Admitting Unavailable BIRGIT, DR PB Mitchell Consulting Unavailable HIGGINS, DR RUBA Willis Primary Care Unavailable GISELA, DR RUBA Willis Consulting Unavailable HIGGINS, DR RUBA Willis Primary Care Unavailable LAKSHMIPATHY ., AJ Attending Jessy vailable LAKSHMIPATHY ., NARENDRANATH Admitting Jessy vailable LAKSHMIPATHY ., NARENDLOWELLATH Consulting Jessy vailable ISAEL GRIFFIN Consulting Unavailable GISELA, DR RUBA Willis Primary Care Unavailable HIGGINS, DR RUBA Willis Consulting Unavailable HIGGINS, DR RUBA Willis Attending Unavailable HIGGINS, DR RUBA Willis Admitting Unavailable BECKER ., DR VALENTINA Rothman Admitting Unavailable BECKER ., DR VALENTINA Rothman Consulting Unavailable BECKER ., DR VALENTINA Rothman Attending Unavailable GISELA, DR RUBA Willis Primary Care Unavailable ROSITA ., DR VALENTINA Rothman Admitting Unavailable BECKER ., DR VALENTINA Rothman Attending Unavailable GISELA, DR RUBA Willis Primary Care Unavailable GISELA, DR RUBA Willis Consulting Unavailable VALERA ., JOLYNN Consulting Unavailable GISELA, DR RUBA Willis Primary Care Unavailable LAKSHMIPATHY ., NARENDRANATH Attending Jessy vailable LAKLALAMIPATHY ., NARENDRANATH Admitting Jessy vailable LAKSHMIPATHY ., NARENDRANATH Consulting Jessy vailable Ruba Higgins Unavailable RUBA HIGGINS Primary Care Physician MAURA HOYT Attending Unavailable Valeriy Higgins MD Primary Care Provider [phone] Community, Outreach Admitting Unavailable Community, Outreach Attending Unavailable Ruba Higgins Primary Care Unavailable Ruba Higgins MD Primary Care Provider Ruba Higgins MD Attending Provider Jae Feuntes MD Attending Provider Roman GUAN Attending Unavailable MARK LEMUS Admitting Unavailable DIGRHYS, MARK Attending Unavailable DIGRHYS, MARK Referring Unavailable Roman GUAN Admitting Unavailable Roman GUAN Attending Unavailable Roman GUAN Attending Unavailable Gisela SALGUERO, Ruba Stiles Primary Care Unava owen Ziegler MD, Suleiman Guzman Attending Unavaila Sarah Pichardo MD Consulting [employer] Mary Admitting Unavailable [employer] mahajan Consulting Unavailable Kim WELDING MACHINE OPERATOR [employer], Katty Mott Consulting Unavailable Jae Alaniz MD Attending UnavailRuba Dempsey MD [facility] Care Jessyva owen Cifuentes MD, Dulce Cooper Attending Unavailable Allergies Allergy Classification Reported Allergen(s) Allergy Type Date of Onset Reaction(s) Facility (1 source) No Known Medication Allergies; Translations: [No Known Medication Allergies] Propensity to adverse reactions to drug (disorder) [facility] Repository Medications Current Medications Medication Drug Class(es) [...] 09/17/23 Status: Ordered Caltrate 600 with D (4 sources) Start: 02-19-2010 Caltrate 600 with D 1 tab(s), Oral, Daily, Refill(s) 0, Prophylaxis Start Date: 02/19/10 Status: Ordered Repeat number: 1 Start: 02-19-2010 Caltrate 600 w ith D 1 tab(s), Oral, Daily, Refill(s) 0, Prophylaxis Start Date: 02/19/10 Status: Ordered Osteo Bi-Flex (4 sources) Start: 09-17-2023 Osteo Bi-Flex Refill(s) 0 Start Date: 09/17/23 Status: Ordered Repeat number: 1 Start: 09-17-2023 Osteo Bi-Flex Refill(s) 0 Start Date: 09/17/23 Status: Ordered Fish Oils (4 sources) Start: 02-19-2010 take 1 tablet by christian th once daily [place]-3 Fish Oil 1 tab, Oral, Daily, Refill(s) 0, Prophylaxis Start Date: 02/19/10 Status: Ordered Repeat number: 1 Start: 02-19-2010 take 1 tablet by christian once daily [place]-3 Fish Oil 1 tab, Oral, Daily, Refill(s) [...] 02/28/14 Status: Ordered Multiple Vitamins oral capsule (4 sources) Start: 02-19-2010 take 1 capsule by mouth once daily Multiple Vitamins oral capsule 1 cap(s), Oral, Daily, Refill(s) 0, Prophylaxis Start Date: 02/19/10 Status: Ordered Repeat number: 1 Start: 02-19-2010 take 1 capsule by mo [facility] once daily Multiple Vitamins oral capsule 1 cap(s), Oral, Daily, Refill(s) 0, Prophylaxis Start Date: 02/19/10 Status: Ordered Multivitamin preparation (7 sources) Multivitamin Act marysol naproxen sodium 220 mg oral tablet (2 sources) Nonsteroidal Anti-inflammatory Drug Start: 11-24-19 25 take [...] capsule (2 sources) alpha-Adrenergic Tera Start: 09-17-19 24 End: 10-17-19 24 take 1 capsule by mouth once daily Flomax 0.4 mg Cap 0.4 mg = 1 cap(s), Oral, Daily, Stop taking if experiencing dizziness or lightheadedness., X 30 day(s), # 30 cap(s), Refills(s) 0, Pharmacy: [facility]/pharmacy #[id number], 56.1, kg, 09/17/23 8:03:00 [...] Act marysol ZOLMitriptan 5 mg oral tablet (4 sources) Serotonin-1b and Serotonin-1d Receptor Agonist Start: [...] sources) Nonsteroidal Anti-inflammatory Drug Start: 10-02-2023 End: 04-05-2024 take 1 tablet by mouth once daily [...] [Calculus of ureter] Onset: 09-17-2023 Episodic Cataract (5 sources) Cataract; 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 Conditions associated with dizziness or vertigo (4 sources) Meniere's disease 02-28-2014 Chronic Disorders of lipid metabolism (14 sources) Pure hypercholesterolemia; Translations: [Pure hypercholesterolemia, unspecified] Onset: 09-16-2013 02-28-2014 Chronic Essential hypertension (8 sources) Essential (primary) hypertension; Translations: [Essential hypertension] Onset: 11-09-2021 Chronic Headache; including migraine (4 sources) Migraine 02-28-2014 Chronic Immunizations and screening [...] Cervicalgia; Translations: [Lumbago] Onset: 09-05-2022 Episodic Unclassified (4 sources) tremors 1 02-28-2014 Comment on above: [...] Test Name Value Interpretation Reference Range Facility Ambulatory Visit Summaryon 0 01-28-2025 Ambulatory Visit Summary Ambulatory Visi t Summary NINFA LEA :1940 Visit Date:01/28/2025 Ambulatory Visit Instructions Your Diagnosis Kidney stones Ureteral stone Tests Performed US Renal -- Results Pending -- Please visit your patient portal for your results or contact your primary care physician. Your Care Team Attending Physician - SHANNON SALGUERO, Roman Mitchell Primary Care Physician - RUBA HIGGINS MD This Is Your Medications List Contact prescribing physician if questions or concerns calcium-vitamin D (Caltrate 600 with D) chondroitin-glucosam ine (Osteo Bi-Flex) multivitamin (Multiple Vitamins oral capsule) naproxen (Aleve) omega-3 polyunsaturated fatty acids ([place]-3 Fish Oil) zolmitriptan (Zomig 5 mg oral tablet) Procedures Performed Myelogram (11/23/2024), right cataract extraction with intraocular lens implantation (02/28/2014), Bunionectomy, Cataract extraction and insertion of intraocular lens, cervical herniated disc removed, Hysterectomy and bilateral salpingo-oophorectom y sample, stapidectomy. Discharge Vitals Temperature (Tympanic) 36.5 ???C Heart Rate (Peripheral) 86 Respiratory Rate 16 Blood Pressure 120/68 Height 165 cm Height 65 in Weight 54.6 kg Weight 120.372 lb BMI 20.06 What to do next You Need to Schedule the Following Appointments Follow Up with SHANNON SALGUERO, JJ Rucker When: Where: [facility] [place] [id number]- Medications What How Much When Instructions Unchanged calcium-vitamin D (Caltrate 600 with D) 1 Tablets By Mouth Every day Contact prescribing physician if questions or concerns Unchanged chondroitin-glucosam ine (Osteo Bi-Flex) Contact prescribing physician if questions or concerns Unchanged multivitamin (Multiple Vitamins oral capsule) 1 Capsules By Mouth Every day Contact prescribing physician if questions or concerns Unchanged naproxen (Aleve) 220 Milligram By Mouth Every 12 hours Contact prescribing physician if questions or concerns Unchanged omega-3 polyunsaturated fatty acids ([place]-3 Fish Oil) 1 tab By Mouth Every [...] ureteral stone Meniere disease migraine headache tremors Ureteral stone Patient Survey You may receive a survey via text or e-mail asking about your office visit. Please share your experience with us by completing your survey. We appreciate your feedback and thank you for choosing us for your care. Education Materials Dietary Guidelines to Help Prevent Kidney Stones Kidney stones are deposits of minerals and salts that form inside your kidneys. Your risk of developing kidney stones may be greater depending on your diet, your lifestyle, the medicines you take, and whether you have certain medical conditions. Most people can lower their risks of developing kidney stones by following these dietary guidelines. Your dietitian may give you more specific instructions depending on your overall health and the type of kidney stones you tend to develop. What are tips for following this plan? Reading food labels ??? Choose foods with no salt added or low-salt labels. Limit your salt (sodium) intake to less than 1,500 mg a day. ??? Choose foods with calcium for each meal and snack. Try to eat about 300 mg of calcium at each meal. Foods that contain 200???500 mg of calcium a serving include: ? 8 oz (237 mL) of milk, calcium-fortifiednon -dairy milk, and calcium-fortifiedfru it juice. Calcium-fortified means that calcium has been added to these drinks. ? 8 oz (237 mL) of kefir, yogurt, and soy yogurt. ? 4 oz (114 g) of tofu. ? 1 oz (28 g) of cheese. ? 1 cup (150 g) of dried figs. ? 1 cup (91 g) of cooked broccoli. ? One 3 oz (85 g) can of sardines or mackerel. Most people need 1,000???1,500 mg of calcium a day. Talk to your dietitian about how much calcium is recommended for you. Shopping ??? Buy plenty of fresh fruits and vegetables. Most people do not need to avoid fruits and vegetables, even if these foods contain nutrients that may contribute to kidney stones. ??? When shopping for convenience foods, choose: ? Whole pieces of fruit. ? Pre-made salads with dressing on the side. ? Low-fat fruit and yogurt smoothies. ??? Avoid buying frozen meals or prepared deli foods. These can be high in sodium. ??? Look for foods with live cultures, such as yogurt and kefir. ??? Choose high-fiber grains, such as whole-wheat breads, oat bran, and wheat cereals. Cooking ??? Do not add salt to food when cooking. Place a (more content not included)... Normal [facility] Ambulatory Visit Summary Ambulatory Visi t Summary NINFA LEA :1940 Visit Date:01/28/2025 Ambulatory Visit Instructions Your Diagnosis Kidney stones Ureteral stone Tests Performed US Renal -- Results Pending -- Please visit your patient portal for your results or contact your primary care physician. Your Care Team Attending Physician - SHANNON SALGUERO, Roman Mitchell Primary Care Physician - RUBA HIGGINS MD This Is Your Medications List Contact prescribing physician if questions or concerns calcium-vitamin D (Caltrate 600 with D) chondroitin-glucosam ine (Osteo Bi-Flex) multivitamin (Multiple Vitamins oral capsule) naproxen (Aleve) omega-3 polyunsaturated fatty acids ([place]-3 Fish Oil) zolmitriptan (Zomig 5 mg oral tablet) Procedures Performed Myelogram (11/23/2024), right cataract extraction with intraocular lens implantation (02/28/2014), Bunionectomy, Cataract extraction and insertion of intraocular lens, cervical herniated disc removed, Hysterectomy and bilateral salpingo-oophorectom y sample, stapidectomy. Discharge Vitals Temperature (Tympanic) 36.5 ???C Heart Rate (Peripheral) 86 Respiratory Rate 16 Blood Pressure 120/68 Height 165 cm Height 65 in Weight 54.6 kg Weight 120.372 lb BMI 20.06 What to do next You Need to Schedule the Following Appointments Follow Up with SHANNON SALGUERO, JJ Rucker When: Where: [address] [place] [address]- Medications What How Much When Instructions Unchanged calcium-vitamin D (Caltrate 600 with D) 1 Tablets By Mouth Every day Contact prescribing physician if questions or concerns Unchanged chondroitin-glucosam ine (Osteo Bi-Flex) Contact prescribing physician if questions or concerns Unchanged multivitamin (Multiple Vitamins oral capsule) 1 Capsules By Mouth Every day Contact prescribing physician if questions or concerns Unchanged naproxen (Aleve) 220 Milligram By Mouth Every 12 hours Contact prescribing physician if questions or concerns Unchanged omega-3 polyunsaturated fatty acids ([place]-3 Fish Oil) 1 tab By Mouth Every [...] ureteral stone Meniere disease migraine headache tremors Ureteral stone Patient Survey You may receive a survey via text or e-mail asking about your office visit. Please share your experience with us by completing your survey. We appreciate your feedback and thank you for choosing us for your care. Education Materials Dietary Guidelines to Help Prevent Kidney Stones Kidney stones are deposits of minerals and salts that form inside your kidneys. Your risk of developing kidney stones may be greater depending on your diet, your lifestyle, the medicines you take, and whether you have certain medical conditions. Most people can lower their risks of developing kidney stones by following these dietary guidelines. Your dietitian may give you more specific instructions depending on your overall health and the type of kidney stones you tend to develop. What are tips for following this plan? Reading food labels ??? Choose foods with no salt added or low-salt labels. Limit your salt (sodium) intake to less than 1,500 mg a day. ??? Choose foods with calcium for each meal and snack. Try to eat about 300 mg of calcium at each meal. Foods that contain 200???500 mg of calcium a serving include: ? 8 oz (237 mL) of milk, calcium-fortifiednon -dairy milk, and calcium-fortifiedfru it juice. Calcium-fortified means that calcium has been added to these drinks. ? 8 oz (237 mL) of kefir, yogurt, and soy yogurt. ? 4 oz (114 g) of tofu. ? 1 oz (28 g) of cheese. ? 1 cup (150 g) of dried figs. ? 1 cup (91 g) of cooked broccoli. ? One 3 oz (85 g) can of sardines or mackerel. Most people need 1,000???1,500 mg of calcium a day. Talk to your dietitian about how much calcium is recommended for you. Shopping ??? Buy plenty of fresh fruits and vegetables. Most people do not need to avoid fruits and vegetables, even if these foods contain nutrients that may contribute to kidney stones. ??? When shopping for convenience foods, choose: ? Whole pieces of fruit. ? Pre-made salads with dressing on the side. ? Low-fat fruit and yogurt smoothies. ??? Avoid buying frozen meals or prepared deli foods. These can be high in sodium. ??? Look for foods with live cultures, such as yogurt and kefir. ??? Choose high-fiber grains, such as whole-wheat breads, oat bran, and wheat cereals. Cooking ??? Do not add salt to food when cooking. Place a (more content not included)... Normal [facility] Urology Office/Clinic Noteon 01-28-2025 Urology Office/Clinic Note Urology Office/Clinic Note Chief Complaint 1 yr w/ KUB HPI Staff Pt is a 84 year old female here for 1 year follow up with KUB done on 11/26/24 Dx: left ureteral stone Flomax 0.4mg qd pt did bring stone with her, she states she has had it almost 1 yr Pt. denies having incontinence Pt. denies having pain with urination Pt. denies having gross hematuria Pt. denies having abd pain Pt. denies having flank pain BBSQ - 9 History of Present Illness Tests reviewed: reviewed UA and KUB. I have reviewed the previous health record information and history for this patient from Dr. Guan I have reviewed and verified the staff [...] See HPI. Physical Exam Vitals & Measurements T: 36.5 ???C(Tympanic) HR: 86(Peripheral) RR: 16 BP: 120/68 HT: 65 in HT: 165 cm WT: 120.372 lb WT: 54.6 kg BMI: 20.06 General Appearance: alert , no acute distress, well nourished, well developed female. Assessment/Plan Pt accompanied by . Reports recent back surgery. BBSQ 9 1. Kidney stones (N20.0: Calculus of kidney) Previously had a stone that she was unable to pass, required surgery 2 years ago in [place], [place]. Was told at this time that she had a puncture in her kidney that would heal. CT AP wo con 09/09/23 - 4 [...] joint is unchanged and favors a phlebolith. CT AP wo con 10/14/23 (due to pain) [facility] - no stones noted. KUB 11/06/23 [facility] - stable R nephrolithiasis. KUB 11/26/24 [facility] - irregular stone or adjacent stones at the midpole of the R kidney measuring 8 mm in total. UA today negative for blood or infection. Pt feels she drinks a lot of water, pt states she has a large tumbler that she refills 2 or 3 times per day. Goal is 2 L UOP or 90 oz of water per day. Recommend KADEN to better evaluate possible stone due to no stone noted on prior CT last year. Consider surgical mgmt, likely ESWL if stone is confirmed on KADEN. Risks of ESWL discussed. -Schedule KADEN at [facility], pt to be called with results, consider ESWL if stone is present on KADEN -Complete met w/up in the future (will proceed with met w/up if stone is not visible on ultrasound) 2. Ureteral stone (N20.1: Calculus of ureter) CT AP wo con 10/14/23 (due to pain) [facility] - mild left pelviectasis. 0.5 cm L UVJ stone. Pt was able to pass stone, brought with her today. Will send for analysis. -See #1 Follow-up With When Contact Information SHANNON SALGUERO, Roman Mitchell, URL [address] [place] [address]- Additional Instructions: F/up dependent on KADEN findings Patient Education Dietary Guidelines to Help Prevent Kidney Stones I, Yuliana Finnegan, personally scribed for Dr. Guan on 01/28/2025 10:54:07. . Documentation recorded by the scribe, Yuliana Finnegan, accurately reflects the services(s) I performed and decisions made by me. Authenticated by Dr. Guan on 01/28/2025 10:58:57. Problem List/Past Medical History Ongoing History of kidney stones Hypercholesterolemia Kidney stones Left ureteral stone Meniere disease migraine headache tremors Ureteral stone Historical No qualifying data Procedure/Surgical History Myelogram (11/23/2024), right cataract extraction with intraocular lens implantation (02/28/2014), Bunionectomy, Cataract extraction and insertion of intraocular lens, cervical herniated disc removed, Hysterectomy and bilateral salpingo-oophorectom y sample, stapidectomy. Medications Aleve, 220 mg, Oral, q12hr Caltrate 600 with D, 1 tab(s), Oral, Daily Multiple Vitamins oral capsule, 1 cap(s), Oral, Daily [place]-3 Fish Oil, 1 tab, Oral, Daily Osteo Bi-Flex Zomig 5 mg oral tablet, 1 tab(s), Oral, Once, PRN Allergies No Known Allergies Social History Alcohol - Denies Alcohol Use, 02/19/2010 Substance Abuse - Denies Substance Abuse, 02/19/2010 T (more content not included)... Normal [facility] Comment on above: Result Comment: Elec tronically Signed By: Roman GUAN MD\.br\Date and Time Signed: 01/28/25 10:59 EDT\.br\Electronically Co-Signed By: Yuliana Finnegan\.br\Date and Time Co-Signed: 01/28/25 10:54 EDT\.br\Electronically Co-Signed By: Yuliana Finnegan\.br\Date and Time Co-Signed: 01/28/25 10:55 EDT C Kristina 01-10-2025 Wil Vogt ------- Final No growth at 5 days. Normal [facility] Comment on above: Performed By: #### [facility] #### [address] [address] Wil Acevedo 01-09-2025 Wil Vogt WAS ABLE TO OBTAIN 1 SET OF B/C 01/05/2025 04:34:28 EDT D.R ------- Final Streptococcus salivarius isolated in 1 of 2 blood culture bottles drawn. (Aerobic bottle) . Verigine nucleic acid test negative for the following organisms DNA: Staphlococcus species, Staph. aureus, Staph. epidermidis, Staph. lugdenensis, Streptococcus species, Strep. pneumoniae, Strep. pyogenes, Strep. agalactiae, Strep. anginosis group, Enterococcus faecalis, Enterococcus faecium, and Listeria species. Conventional identification and susceptibility to follow. . The Verigene Gram Positive Blood Culture Nucleic [...] Boubacar and vanB for E.faecalis and E.faecium. . The presence of nucleic acids in clinical specimens does not exclude [...] verified by culture and sensitivity tests. ORGANISM Strsal ------- Gram Stain Gram Positive Cocci seen on gram stain. Time to Initial Positive = 20 hours 38 minutes . Test: positive blood culture Test Completion: 01/06/2025 01:43:12 Results called to Candida Levine RN at [facility]U by AD on 01/06/2025 01:45:34 Critical results, patient name and location verbally confirmed and acceptable? yes ----- SUSCEPTIBILITY ---- ORGANISM ID: 1 ANTIBIOTIC INTERPRETATION CURT STATUS POS Streptococcus salivarius Ampicillin I 4 V Penicillin I 1 V Cefotaxime S <=0.12 V Ceftriaxone S 0.25 V Erythromycin R >=8 V Linezolid S <=2 V Vancomycin S 1 V Normal [facility] Comment on above: Performed By: #### B [facility] #### [facility] (DEFAULT) [address] [place] [address] [facility] [address] [place] [address] .eGFRon 01-07-2025 GFR/1.73 sq M.predicted MDRD (S/P/Bld) [Vol rate/Area] mL/min/{1.73_m2} Normal >=60 [facility] Comment on above: Result Comment: [facility] have implemented the eGFR calculation approach that does not have a coefficient for race and that conforms to the NKF-ASN Task Force Recommendations. Stages of Chronic Kidney Disease GFR Stage 1 Normal to mild loss of kidney function ? 90 Stage 2 Mild loss of kidney function 60 - 89 Stage 3a Mild to moderate loss of kidney function 45 - 59 Stage 3b Moderate to severe loss of kidney function 30 - 45 Stage 4 Severe loss of kidney function 15 - 29 Stage 5 Kidney failure < 15 GFR calculated using the CKD-Epi Creatinine Equation (2020): eGFR = 142 X min(SCr/?, 1)? X max(SCr /?, 1)-1.200 X 0.9938Age X 1.012 [if female] Abbreviations/Units: eGFR (estimated glomerular filtration rate) = mL/min/1.73 m2 SCr (standardized serum creatinine) = mg/dL ? = 0.7 (females) or 0.9 (males) ? = -0.241 (females) or -0.302 (males) min = indicates the minimum of SCr/? or 1 max = indicates the maximum of SCr/? or 1 Age = years Performed By: #### B [facility] #### [facility] (DEFAULT) [address] [place] [address] [facility] [address] [place] [address] Basic Metabolic Profileon Anion gap [Moles/Vol] 4 mmol/L Normal 4-12 [facility] Comment on above: Performed By: #### C [id number] ####[address] [address] BUN Crea Ratio 9.2 ratio Low 15.0-25.0 [facility] Comment on above: Performed By: #### C [id number] ####[address] [address] Calcium [Mass/Vol] 8.0 mg/dL Low 8.6-10.3 [facility] Comment on above: Performed By: #### C [id number] ####[address] [address] Chloride [Moles/Vol] 105 mmol/L Normal 98-107 [facility] Comment on above: Performed By: #### C [id number] ####[address] [address] CO2 [Moles/Vol] 30 mmol/L Normal 21-31 [facility] Comment on above: Performed By: #### C [id number] ####[address] [address] Creatinine [Mass/Vol] 0.65 mg/dL Normal 0.60-1.20 [facility] Comment on above: Performed By: #### C [id number] ####[address] [address] Glucose [Mass/Vol] 95 mg/dL Normal 70-99 [facility] [facility] Comment on above: Performed By: #### C [id number] ####[address] [address] Potassium [Moles/Vol] 3.7 mmol/L Normal 3.4-4.8 [facility] Comment on above: Performed By: #### C [id number] ####[address] [address] Sodium [Moles/Vol] 139 mmol/L Normal 136-145 [facility] Comment on above: Performed By: #### C [id number] ####[facility] [place] [address] Urea nitrogen [Mass/Vol] 6 mg/dL Low 7-25 [facility] Comment on above: Performed By: #### C D:[id number] ####[facility] [place] [address] CBC w/ Diffon 01-07-2025 Erythrocyte distribution width (RBC) [Ratio] 13.0 % Normal 11.6-14.8 [facility] Comment on above: Performed By: #### B LDC #### [facility] (DEFAULT) [address] [place] [address] [facility] [address] [place] [address] Hematocrit (Bld) [Volume fraction] 22.6 % Low 36.0-46.0 [facility] Comment on above: Performed By: #### B LDC #### [facility] (DEFAULT) [address] [place] [address] [facility] [address] [place] [address] Hemoglobin (Bld) [Mass/Vol] 7.8 g/dL Low 12.0-16.0 [facility] Comment on above: Performed By: #### B LDC #### [facility] (DEFAULT) [address] [place] [address] [facility] [address] [place] [address] MCH (RBC) [Entitic mass] 32.2 pg Normal 27.0-35.0 [facility] Comment on above: Performed By: #### B LDC #### [facility] (DEFAULT) [address] [place] [address] [facility] [address] [place] [address] MCHC 34.5 % Normal 31.0-37.0 [facility] Comment on above: Performed By: #### B LDC #### [facility] (DEFAULT) [address] [place] [address] [facility] [address] [place] [address] MCV (RBC) [Entitic vol] 93.4 fL Normal 80.0-100.0 [facility] Comment on above: Performed By: #### B LDC #### [facility] (DEFAULT) [address] [place] [address] [facility] [address] [place] [address] Platelet 144 x10*3/mcL Low 150-450 [facility] Comment on above: Performed By: #### B LDC #### [facility] (DEFAULT) [address] [place] [address] [facility] [address] [place] [address] Platelet mean volume (Bld) [Entitic vol] 8.1 fL Normal 6.7-10.6 [facility] Comment on above: Performed By: #### B LDC #### [facility] (DEFAULT) [address] [place] [address] [facility] [address] [place] [address] RBC 2.42 x10*6/mcL Low 3.80-5.20 [facility] Comment on above: Performed By: #### B LDC #### [facility] (DEFAULT) [address] [place] [address] [facility] [address] [place] [address] WBC 7.0 x10*3/mcL Normal 4.5-11.0 [facility] Comment on above: Performed By: #### B LDC #### [facility] (DEFAULT) [address] [place] [address] [facility] [address] [place] [address] Diff Autoon 01-07-2025 Baso Absolute 0.0 x10*3/mcL Normal 0.0-0.2 [facility] Comment on above: Performed By: #### B LDC #### [facility] (DEFAULT) [address] [place] [address] [facility] [address] [place] [address] Basophils/100 WBC (Bld) 0.4 % Normal 0.0-1.5 B [facility] Comment on above: Performed By: #### B LDC #### [facility] (DEFAULT) [address] [place] [address] [facility] [address] [place] [address] Eos Absolute 0.1 x10*3/mcL Normal 0.0-0.4 [facility] Comment on above: Performed By: #### B LDC #### [facility] (DEFAULT) [address] [place] [address] [facility] [address] [place] [address] Eosinophils/100 WBC (Bld) 1.9 % Normal 0.0-5.4 [facility] Comment on above: Performed By: #### B LDC #### [facility] (DEFAULT) [address] [place] [address] [facility] [address] [place] [address] Lymph Absolute 1.1 x10*3/mcL Normal 1.0-4.8 [facility] Comment on above: Performed By: #### B LDC #### [facility] (DEFAULT) [address] [place] [address] [facility] [address] [place] [address] Lymphocytes/100 WBC (Bld) 15.3 % Low 27.2-40.8 [facility] Comment on above: Performed By: #### B LDC #### [facility] (DEFAULT) [address] [place] [address] [facility] [address] [place] [address] [place] Absolute 1.0 x10*3/mcL Normal 0.1-1.1 [facility] Comment on above: Performed By: #### B LDC #### [facility] (DEFAULT) [address] [place] [address] [facility] [address] [place] [address] Monocytes/100 WBC (Bld) 14.9 % High 3.7-11.9 B [facility] Comment on above: Performed By: #### B LDC #### [facility] (DEFAULT) [address] [place] [address] [facility] [address] [place] [address] Neutro Absolute 4.7 x10*3/mcL Normal 1.8-7.7 [facility] Comment on above: Performed By: #### B LDC #### [facility] (DEFAULT) [address] [place] [address] [facility] [address] [place] [address] Neutro Auto 67.5 % Normal 47.2-70.8 [facility] Comment on above: Performed By: #### B LDC #### [facility] (DEFAULT) [address] [place] [address] [facility] [address] [place] [address] Inpatient Clinical Summaryon 01-07-2025 Inpatient Clinical Summary [address] [address] [phone] [address] [phone] Clinical Summary Person Information Name: Ninfa Lea Age: 84 Years : 1940 Sex: Female PCP: Ruba Higgins MD Marital Status: Phone: PCP: Race: White Ethnicity: Not or Language: Greek Visit Id: Visit Reason: Speciality: Acuity: Enc Type: Observation Med Service: Orthopedics Arrival: 01/04/2025 09:00:39 Discharge: Dispo Type: Address: [address] [place] [phone] Preferred Communication Mode: Verbal Preferred Language: Greek Discharge Diagnosis: Spinal stenosis, lumbar region Discharged To: Home with home health Mode of Discharge Transportation: Private vehicle Home Treatments: Devices/Equipment: Professional Skilled Services: Special Services and Community Resources: Discharge Orders: Follow up with Primary Care Provider (PCP) 01/07/25 14:19:00 EDT, 1 to 2 weeks Snf Facility Certification 01/07/25 14:19:00 EDT, Home Care, I certify home care is anticipated to be LESS than 30 days. Provider to Resume Care: Vini SALGUERO to follow., 01/07/25 14:19:00 EDT, 01/07/25 14:19:00 EDT Tube Feeding and Supplements Home Health Consult and Ambulatory Referrals Home with Home Health 01/06/25 14:10:00 EDT, *Snf - Eval & Treat P: [phone] F: , 01/06/25 14:10:00 EDT Home with Home Health 01/06/25 14:08:00 EDT, *Snf - Eval & Treat P: [phone] F: , 01/06/25 14:08:00 EDT Treatment and Wound Care Compression Drain Care 01/04/25 16:02:00 EDT Indwelling Urinary Catheter Continuation 01/05/25 6:00:00 EDT, Daily, -1 Neurological Checks 01/04/25 16:02:00 EDT, Stop date 01/04/25 16:02:00 EDT, With vital signs Skin Care: Skin Integrity: Localized abnormality Skin Abnormalities: Bruising Lines/Devices/BM Information: Urinary Catheter Type: Indwelling/Continuou s Urinary Catheter Size: 16 Fr Urinary Catheter Activity Date: Discontinued Pre-insertion Indwelling Catheter Education: Ostomy Type: GI Tube Type: GI Tube Size: GI Tube Activity Date: Date of Last Bowel Movement: 01/07/2025 Functional Status: Sensory Deficits: Hearing deficit, left ear, Hearing deficit, right ear, Hearing aids Valuables/Belongings : Hearing aids, Glasses, Electronics, Wallet/Purse/Money History of Falls Within 6 Months: No JH High Fall Risk Interventions: All low and moderate risk fall interventions, Red high fall risk indicated outside patient room, Yellow gown and red nonskid socks, Bed/chair alarm activated, Best/Direct visual access used, Remain with patient during toileting, Patient transported wit... Activities of Daily Living: ADLs: Independent Bathing ADL: Requires assistance (1) Dressing ADL: Requires assistance (1) Personal Care Provided: Assisted with gown, Bed bath, Chux pad changed, Foot care, Linens changed, Diya care Bed Mobility Assistance: Independent Ambulation Assistance: Standby assistance Musculoskeletal Abnormality: Gait: Unable to assess Assistive Devices: Gait belt, Walker Special Orthopedic Devices: Brace Current Level of Assistance for Self Care/Mobility: Cognitive Status: Orientation Assessment: Oriented x 4 Level of Consciousness: Alert Characteristics of Speech: Clear Aspiration Risk: None Affect/Behavior: Appropriate, Calm, Cooperative Smoking Status Never (less than 100 in lifetime) Laboratory or Other Results This Visit (last charted value for your 01/04/2025 visit) Hematology 01/07/2025 4:52 AM WBC: 7.0 x10 RBC: 2.42 x10 Neutro Auto: 67.5 % -- Normal range between ( 47.2 and 70.8 ) Lymph Auto: 15.3 % -- Normal range between ( 27.2 and 40.8 ) [place] Auto: 14.9 % -- Normal range between ( 3.7 and 11.9 ) Eos Auto: 1.9 % -- Normal range between ( 0.0 and 5.4 ) Basophil Auto: 0.4 % -- Normal range between ( 0.0 and 1.5 ) Baso Absolute: 0.0 x10 MCV: 93.4 fL -- Normal range between ( 80.0 and 100.0 ) MCHC: 34.5 % -- Normal range between ( 31.0 and 37.0 ) Lymph Absolute: 1.1 x10 Hct: 22.6 % -- Normal range between ( 36.0 and 46.0 ) [place] Absolute: 1.0 x10 MCH: 32.2 pg -- Normal range between ( 27.0 and 35.0 ) Neutro Absolute: 4.7 x10 Hgb: 7.8 g/dL -- Normal range between ( 12.0 and 16.0 ) Mean Platelet Volume: 8.1 fL -- Normal range between ( 6.7 and 10.6 ) Platelet: 144 x10 Eos Absolute: 0.1 x10 RDW: 13.0 % -- Normal range between ( 11.6 and 14.8 ) Chemistry 01/07/2025 4:52 AM Creatinine Lvl: 0.65 mg/dL -- Normal range between ( 0.60 and 1.20 ) BUN: 6 mg/dL -- Normal range between ( 7 and 25 ) Glucose Lvl: 95 mg/dL -- Normal range between ( 70 and 99 ) Potassium Lvl: 3.7 mmol/L -- Normal range between ( 3.4 and 4.8 ) Sodium Lvl: 139 mmol/L -- Normal range between (more content not included)... Normal [facility] Orthopedic Progress Noteon 0 01-07-2025 Orthopedic Progress Note Subjective POD#3 patient doing well, ambulating with PT. C/o surgical site pain Denies radicular symptoms No BM, passing gas. No issues voiding Denies n/v Hgb 7.8 Objective Vitals & Measurements T: 36.6 ?C (Oral) HR: 71 (Monitored) RR: 14 BP: 116/64 SpO2: 96% HT: 165 cm HT: 170 cm WT: 57 kg BMI: 19.72 BMI: 20.94 Additional Vitals No qualifying data available. Lab Results Microbiology - Current Encounter No qualifying data available. Diagnostic Results Diagnostic Radiology XR OR Spine Lumbar Crossfire 01/04/25 13:55:39 This report was not created by a radiologist, physician, or advanced practice provider. The details of this surgical case can be found within the surgical operative note. The surgical Operative note is located within the patient?s chart. Signed By: Deepika Dodge Physical Exam Alert and oriented x3, cooperative 5/5 motor bilatera LE Dressing - C/D/I Medications Inpatient Colace, 100 mg, Oral, BID cyclobenzaprine, 10 mg, Oral, q8hr, PRN Dulcolax Laxative, 10 mg, Oral, Daily, PRN Dulcolax Laxative, 10 mg= 1 supp, Rectal, Daily, PRN Fleet Enema 7 g-19 g rectal enema, 133 mL, Rectal, Daily, PRN MiraLax, 17 g= 1 EA, Oral, Daily morphine, 2 mg= 1 mL, IV Push, q3hr, PRN NS 1,000 mL, 1000 mL, IV Percocet 5/325 oral tablet, 1 tabs, Oral, q6hr, PRN Zofran, 4 mg= 2 mL, IV Push, q4hr, PRN Assessment/Plan POD#3 s/p L2-S1 decompression and fusion Plan 1. Continue drains 2. Hgb 7.8 this am 3. Activity as tolerated. PT/OT, back brace when ambulating 4. Pain controlled 5. Discharge pending BM, home possibly today HH for drain care Electronically signed by Mark Lemus PA-C 01/07/25 06:10 EDT Normal [facility] .eGFRon 01-06-2025 GFR/1.73 sq M.predicted MDRD (S/P/Bld) [Vol rate/Area] mL/min/{1.73_m2} Normal >=60 [facility] Comment on above: Result Comment: [facility] have implemented the eGFR calculation approach that does not have a coefficient for race and that conforms to the NKF-ASN Task Force Recommendations. Stages of Chronic Kidney Disease GFR Stage 1 Normal to mild loss of kidney function ? 90 Stage 2 Mild loss of kidney function 60 - 89 Stage 3a Mild to moderate loss of kidney function 45 - 59 Stage 3b Moderate to severe loss of kidney function 30 - 45 Stage 4 Severe loss of kidney function 15 - 29 Stage 5 Kidney failure < 15 GFR calculated using the CKD-Epi Creatinine Equation (2020): eGFR = 142 X min(SCr/?, 1)? X max(SCr /?, 1)-1.200 X 0.9938Age X 1.012 [if female] Abbreviations/Units: eGFR (estimated glomerular filtration rate) = mL/min/1.73 m2 SCr (standardized serum creatinine) = mg/dL ? = 0.7 (females) or 0.9 (males) ? = -0.241 (females) or -0.302 (males) min = indicates the minimum of SCr/? or 1 max = indicates the maximum of SCr/? or 1 Age = years Performed By: #### B [facility] #### [facility] (DEFAULT) [address] [place] [address] [facility] [address] [place] [address] Basic Metabolic Profileon Anion gap [Moles/Vol] 6 mmol/L Normal 4-12 [facility] Comment on above: Performed By: #### B LDC #### [facility] (DEFAULT) [address] [place] [address] [facility] [address] [place] [address] BUN Crea Ratio 14.7 ratio Low 15.0-25.0 [facility] Comment on above: Performed By: #### B LDC #### [facility] (DEFAULT) [address] [place] [address] [facility] [address] [place] [address] Calcium [Mass/Vol] 7.8 mg/dL Low 8.6-10.3 [facility] Comment on above: Performed By: #### B LDC #### [facility] (DEFAULT) [address] [place] [address] [facility] [address] [place] [address] Chloride [Moles/Vol] 106 mmol/L Normal 98-107 [facility] Comment on above: Performed By: #### B LDC #### [facility] (DEFAULT) [address] [place] [address] [facility] [address] [place] [address] CO2 [Moles/Vol] 27 mmol/L Normal 21-31 [facility] Comment on above: Performed By: #### B LDC #### [facility] (DEFAULT) [address] [place] [address] [facility] [address] [place] [address] Creatinine [Mass/Vol] 0.68 mg/dL Normal 0.60-1.20 [facility] Comment on above: Performed By: #### B LDC #### [facility] (DEFAULT) [address] [place] [address] [facility] [address] [place] [address] Glucose [Mass/Vol] 96 mg/dL Normal 70-99 [facility] Comment on above: Performed By: #### B LDC #### [facility] (DEFAULT) [address] [place] [address] [facility] [address] [place] [address] Potassium [Moles/Vol] 3.8 mmol/L Normal 3.4-4.8 [facility] Comment on above: Performed By: #### B LDC #### [facility] (DEFAULT) [address] [place] [address] [facility] [address] [place] [address] Sodium [Moles/Vol] 139 mmol/L Normal 136-145 [facility] Comment on above: Performed By: #### B LDC #### [facility] (DEFAULT) [address] [place] [address] [facility] [address] [place] [address] Urea nitrogen [Mass/Vol] 10 mg/dL Normal 7-25 [facility] Comment on above: Performed By: #### B LDC #### [facility] (DEFAULT) [address] [place] [address] [facility] [address] [place] [address] CBC w/ Diffon 01-06-2025 Erythrocyte distribution width (RBC) [Ratio] 13.0 % Normal 11.6-14.8 [facility] Comment on above: Performed By: #### C BC ####[facility] [place] [address] Hematocrit (Bld) [Volume fraction] 24.9 % Low 36.0-46.0 [facility] Comment on above: Performed By: #### C BC ####[facility] [place] [address] Hemoglobin (Bld) [Mass/Vol] 8.3 g/dL Low 12.0-16.0 [facility] Comment on above: Performed By: #### C BC ####[facility] [place] [address] MCH (RBC) [Entitic mass] 31.9 pg Normal 27.0-35.0 [facility] Comment on above: Performed By: #### C BC ####[address] [address] MCHC 33.3 % Normal 31.0-37.0 [facility] Comment on above: Performed By: #### C BC ####[place] [id number] MCV (RBC) [Entitic vol] 95.8 fL Normal 80.0-100.0 [facility] Comment on above: Performed By: #### C BC ####[place] [id number] Platelet 94 x10*3/mcL Low 150-450 [facility] Comment on above: Performed By: #### C BC ####[place] [id number] Platelet mean volume (Bld) [Entitic vol] 8.6 fL Normal 6.7-10.6 [facility] Comment on above: Performed By: #### C BC ####[place] [address] RBC 2.60 x10*6/mcL Low 3.80-5.20 [facility] Comment on above: Performed By: #### C BC ####[place] [id number] WBC 8.3 x10*3/mcL Normal 4.5-11.0 [facility] Comment on above: Performed By: #### C BC ####[place] [id number] Diff Autoon 01-06-2025 Baso Absolute 0.0 x10*3/mcL Normal 0.0-0.2 [facility] Comment on above: Performed By: #### . Automated Diff ####[place] [id number] Basophils/100 WBC (Bld) 0.2 % Normal 0.0-1.5 [facility] Comment on above: Performed By: #### . Automated Diff ####[place] [id number] Eos Absolute 0.1 x10*3/mcL Normal 0.0-0.4 [facility] Comment on above: Performed By: #### . Automated Diff ####[address] [address] Eosinophils/100 WBC (Bld) 0.6 % Normal 0.0-5.4 [facility] Comment on above: Performed By: #### . Automated Diff ####[address] [address] Lymph Absolute 1.2 x10*3/mcL Normal 1.0-4.8 [facility] Comment on above: Performed By: #### . Automated Diff ####[address] [address] Lymphocytes/100 WBC (Bld) 14.5 % Low 27.2-40.8 [facility] Comment on above: Performed By: #### . Automated Diff ####[address] [address] [place] Absolute 1.1 x10*3/mcL Normal 0.1-1.1 [facility] Comment on above: Performed By: #### . Automated Diff ####[address] [address] Monocytes/100 WBC (Bld) 13.4 % High 3.7-11.9 B [facility] Comment on above: Performed By: #### . Automated Diff ####[address] [address] Neutro Absolute 5.9 x10*3/mcL Normal 1.8-7.7 [facility] Comment on above: Performed By: #### . Automated Diff ####[address] [address] Neutro Auto 71.3 % High 47.2-70.8 [facility] Comment on above: Performed By: #### . Automated Diff ####[address] [address] Orthopedic Progress Noteon 0 01-06-2025 Orthopedic Progress Note Subjective POD#2 s/p L2-S1 decompression and fusion. Patient doing well, ambulating in the halls. Denies radicular pain. No BM. Objective Vitals & Measurements T: 36.5 ?C (Oral) HR: 91 (Monitored) RR: 16 BP: 144/66 SpO2: 95% HT: 165 cm HT: 170 cm WT: 57 kg BMI: 19.72 BMI: 20.94 Additional Vitals No qualifying data available. Lab Results Microbiology - Current Encounter No qualifying data available. Diagnostic Results Diagnostic Radiology XR OR Spine Lumbar Crossfire 01/04/25 13:55:39 This report was not created by a radiologist, physician, or advanced practice provider. The details of this surgical case can be found within the surgical operative note. The surgical Operative note is located within the patient?s chart. Signed By: Deepika Dodge Physical Exam Motor 5/5 NVI Drsg C/D/I Medications Inpatient Colace, 100 mg, Oral, BID cyclobenzaprine, 10 mg, Oral, q8hr, PRN Dulcolax Laxative, 10 mg, Oral, Daily, PRN Dulcolax Laxative, 10 mg= 1 supp, Rectal, Daily, PRN Fleet Enema 7 g-19 g rectal enema, 133 mL, Rectal, Daily, PRN MiraLax, 17 g= 1 EA, Oral, Daily morphine, 2 mg= 1 mL, IV Push, q3hr, PRN NS 1,000 mL, 1000 mL, IV Percocet 5/325 oral tablet, 1 tabs, Oral, q6hr, PRN Zofran, 4 mg= 2 mL, IV Push, q4hr, PRN Assessment/Plan POD#2 s/p L2-S1 decompression and fusion Plan 1. Continue drains 2. HGB stable 8.3 3. Activity as tolerated 4. Pain controlled 5. Discharge pending, patient needs BM before discharge. Patient will also need cleared by consulted providers. Electronically signed by Pb Ko PA-C 01/06/25 06:56 EDT [facility] .eGFRon 01-05-2025 Estimated GFR 59 mL/min/1.73m? Low >=60 [facility] Comment on above: Order Comment: Order added by Discern rule Result Comment: [facility] have implemented the eGFR calculation approach that does not have a coefficient for race and that conforms to the NKF-ASN Task Force Recommendations. Stages of Chronic Kidney Disease GFR Stage 1 Normal to mild loss of kidney function ? 90 Stage 2 Mild loss of kidney function 60 - 89 Stage 3a Mild to moderate loss of kidney function 45 - 59 Stage 3b Moderate to severe loss of kidney function 30 - 45 Stage 4 Severe loss of kidney function 15 - 29 Stage 5 Kidney failure < 15 GFR calculated using the CKD-Epi Creatinine Equation (2020): eGFR = 142 X min(SCr/?, 1)? X max(SCr /?, 1)-1.200 X 0.9938Age X 1.012 [if female] Abbreviations/Units: eGFR (estimated glomerular filtration rate) = mL/min/1.73 m2 SCr (standardized serum creatinine) = mg/dL ? = 0.7 (females) or 0.9 (males) ? = -0.241 (females) or -0.302 (males) min = indicates the minimum of SCr/? or 1 max = indicates the maximum of SCr/? or 1 Age = years Performed By: #### E GFR ####[facility] [place] [address] Basic Metabolic Profileon Anion gap [Moles/Vol] 8 mmol/L Normal 4-12 [facility] Comment on above: Performed By: #### B LDC #### [facility] (DEFAULT) [address] [place] [address] [facility] [address] [place] [address] BUN Crea Ratio 17.0 ratio Normal 15.0-25.0 [facility] Comment on above: Performed By: #### B LDC #### [facility] (DEFAULT) [address] [place] [address] [facility] [address] [place] [address] Calcium [Mass/Vol] 7.9 mg/dL Low 8.6-10.3 [facility] Comment on above: Performed By: #### B LDC #### [facility] (DEFAULT) [address] [place] [address] [facility] [address] [place] [address] Chloride [Moles/Vol] 103 mmol/L Normal 98-107 [facility] Comment on above: Performed By: #### B LDC #### [facility] (DEFAULT) [address] [place] [address] [facility] [address] [place] [address] CO2 [Moles/Vol] 24 mmol/L Normal 21-31 [facility] Comment on above: Performed By: #### B LDC #### [facility] (DEFAULT) [address] [place] [address] [facility] [address] [place] [address] Creatinine [Mass/Vol] 0.94 mg/dL Normal 0.60-1.20 [facility] Comment on above: Performed By: #### B LDC #### [facility] (DEFAULT) [address] [place] [address] [facility] [address] [place] [address] Glucose [Mass/Vol] 146 mg/dL High 70-99 [facility] Comment on above: Performed By: #### B LDC #### [facility] (DEFAULT) [address] [place] [address] [facility] [address] [place] [address] Potassium [Moles/Vol] 4.5 mmol/L Normal 3.4-4.8 [facility] Comment on above: Performed By: #### B LDC #### [facility] (DEFAULT) [address] [place] [address] [facility] [address] [place] [address] Sodium [Moles/Vol] 135 mmol/L Low 136-145 [facility] Comment on above: Performed By: #### B LDC #### [facility] (DEFAULT) [address] [place] [address] [facility] [address] [place] [address] Urea nitrogen [Mass/Vol] 16 mg/dL Normal 7-25 [facility] Comment on above: Performed By: #### B LDC #### [facility] (DEFAULT) [address] [place] [address] [facility] [address] [place] [address] CBC w/ Diffon 01-05-2025 Erythrocyte distribution width (RBC) [Ratio] 13.1 % Normal 11.6-14.8 [facility] Comment on above: Performed By: #### B LDC #### [facility] (DEFAULT) [address] [place] [address] [facility] [address] [place] [address] Hematocrit (Bld) [Volume fraction] 29.0 % Low 36.0-46.0 [facility] Comment on above: Performed By: #### B LDC #### [facility] (DEFAULT) [address] [place] [address] [facility] [address] [place] [address] Hemoglobin (Bld) [Mass/Vol] 9.9 g/dL Low 12.0-16.0 [facility] Comment on above: Performed By: #### B LDC #### [facility] (DEFAULT) [address] [place] [address] [facility] [address] [place] [address] MCH (RBC) [Entitic mass] 32.3 pg Normal 27.0-35.0 [facility] Comment on above: Performed By: #### B LDC #### [facility] (DEFAULT) [address] [place] [address] [facility] [address] [place] [address] MCHC 34.0 % Normal 31.0-37.0 [facility] Comment on above: Performed By: #### B LDC #### [facility] (DEFAULT) [address] [place] [address] [facility] [address] [place] [address] MCV (RBC) [Entitic vol] 95.0 fL Normal 80.0-100.0 [facility] Comment on above: Performed By: #### B LDC #### [facility] (DEFAULT) [address] [place] [address] [facility] [address] [place] [address] Platelet 149 x10*3/mcL Low 150-450 [facility] Comment on above: Performed By: #### B LDC #### [facility] (DEFAULT) [address] [place] [address] [facility] [address] [place] [address] Platelet mean volume (Bld) [Entitic vol] 8.3 fL Normal 6.7-10.6 [facility] Comment on above: Performed By: #### B LDC #### [facility] (DEFAULT) [address] [place] [address] [facility] [address] [place] [address] RBC 3.05 x10*6/mcL Low 3.80-5.20 [facility] Comment on above: Performed By: #### B LDC #### [facility] (DEFAULT) [address] [place] [address] [facility] [address] [place] [address] WBC 8.7 x10*3/mcL Normal 4.5-11.0 [facility] Comment on above: Performed By: #### B LDC #### [facility] (DEFAULT) [address] [place] [address] [facility] [address] [place] [address] Consultation Note - Generico n 01-05-2025 Consultation Note - Generic Chief Complaint ADELAIDA FOR: L2-S1 DECOMPRESSION AND FUSION, L5-S1 TLIF Reason for Consultation: Acute hypotension Consulting Provider: Orthopedic surgery Cat Alaniz MD Date of Consult: 01/05/2025 Assessment/Plan Ms. Lea is a 84-year-old female with a PMHx of Diastolic HFpEF (EF 55%), essential tremors, lumbar DDD. Admitted for elective surgery for lumbar degenerative disc disease, lumbar spinal stenosis and spondylolisthesis with neurogenic claudication. S/p L2-S1 bilateral laminectomy, partial medial facetectomies and foraminotomies L2-S1, L2-S1 posterior spinal fusion with instrumentation performed by Dr. Saint Kim SALGUERO on 01/04/2025. Per operative report EBL 800 mL. No operative complications. Patient was noted to be, hypotensive overnight with blood pressure 70s/40s. Hospitalist was consulted for acute hypotension. Acute hypotension, asymptomatic -->Etiology unclear. Possibly multifactorial: narcotics, acute blood loss (significant OR blood loss and drainage from hemovac), volume depletion --> Baseline Hgb 13 (12/27/24) S/p L2-S1 bilateral laminectomy with spinal fusion with instrumentation performed by Dr. Saint Kim SALGUERO on 01/04/2025 (POD #1) Chronic Diastolic HFpEF, compensated Essential tremors History of abnormal EKG Obtain STAT CBC, CMP, and magnesium Evaluate for infection, BCx and lactic acid. Can obtain further infectious w/u incluidng CXR and UA if labs a remarkable or develops fever EKG and troponin Orthopedics covering provider notified, monitor BP response to NS bolus. May require further fluid resuscitation Hold home atenolol De-escalate pain regimen d/t hypotension Closely monitor output from hemovac Transfuse PRBC as indicated Further recs to follow Thank you for this consultation. We will continue to follow paient throughout hospitalization. Please call if any questions or concerns. Code Status: Full Resuscitation History of Present Illness Ms. Lea is a 84-year-old female with a PMHx of Diastolic HFpEF, essential tremors, lumbar DDD. Admitted for elective surgery for lumbar degenerative disc disease, lumbar spinal stenosis and spondylolisthesis with neurogenic claudication. S/p L2-S1 bilateral laminectomy, partial medial facetectomies and foraminotomies L2-S1, L2-S1 posterior spinal fusion with instrumentation performed by Dr. Saint Kim SALGUERO on 01/04/2025. Per operative report EBL 800 mL. No operative complications. Patient was noted to be, hypotensive overnight with blood pressure 70s/40s. Hospitalist was consulted for acute hypotension. Patient examined resting in bed. Recently ambulated to the without difficulty, noted chronic tremors in her upper extremities otherwise endorses no complaints. Denies any fever, chills, SOB, cough, chest pain, heart palpitations, dizziness, syncope. Patient denies any prior postoperative with other surgeries complications including infections, anemia, PE/DVT, or lethal arrhythmias. RN notes approximately 800 mL noted from Hemovac drain since surgery. No other signs of bleeding. Patient receiving 2 tabs of percocet. Current vital signs afebrile, HR 80, BP 74/46 (MAP 55), 95% on room air. BP prior was sustaining SBP 130-150s. Pertinent chart review: --OSH labs 12/25/2024 showed WBC of 4.7, Hgb 13.1, platelet 212, NA 142, K3.8, glucose 91, CR 0.8, calcium 9.2, INR 1.02, PT 10.8 --Lexiscan stress test 01/03/2025 showed myocardial perfusion normal, EF 71%, no significant transient ischemic dilation --Echo 01/03/2025 showed EF 55%, enlarged right ventricle, G2 DD, biatrial dilation, moderate TR, moderate RVSP 53 mmHg, mild to moderate AR and MR --EKG shows sinus bradycardia HR 55, possible left atrial enlargement, incomplete RBBB, LAFB Review of Systems 10 point review of systems reviewed Objective Vitals & Measurements T: 36.6 ?C (Oral) TMIN: 36.3 ?C (Oral) TMAX: 36.9 ?C (Temporal Artery) HR: 80 (Peripheral) RR: 16 BP: 78/ 51 SpO2: 95% HT: 165 cm HT: 170 cm WT: 57 kg (Dosing) WT: 57 kg BMI: 20.94 BMI: 19.72 Physical Exam General: Alert oriented x3, patient appears in no acute cardiorespiratory distress. Elderly, not acutely ill-appearing. Resting in bed comfortably. Eye: normal conjunctiva HENT: Normocephalic, moist oral mucosa, no scleral icterus. Neck: Supple, non-tender, no lymphadenopathy. Lungs: Clear to auscultation, no crepitations or wheeze. Breathing nonlabored. 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 On room air. Heart: S1-S2 is normal. No murmurs rubs or gallops. Abdomen: Soft, non-tender, non-distended, normal bowel sounds, no masses MSK: Midline thoracic and lumbar surgical dressing CDI, bilateral Hemovacs intact with mild sanguinous drainage Extremities: No cyanosis clubbing or edema Skin: no open sores or wounds Neurologic: Awake, alert, and oriented X3, patient does not have any focal deficits. Moving lower extremities equally. No nystagmus. Speech clear. Answers questions appropriately. Follow commands. Psyc (more content not included)... Normal [facility] Diff Autoon 01-05-2025 Baso Absolute 0.0 x10*3/mcL Normal 0.0-0.2 [facility] Comment on above: Performed By: #### B LDC #### [address] [address] Basophils/100 WBC (Bld) 0.2 % Normal 0.0-1.5 [facility] Comment on above: Performed By: #### B LDC #### [address] [address] Eos Absolute 0.0 x10*3/mcL Normal 0.0-0.4 [facility] Comment on above: Performed By: #### B LDC #### [address] [address] Eosinophils/100 WBC (Bld) 0.1 % Normal 0.0-5.4 [facility] Comment on above: Performed By: #### B LDC #### [address] [address] Lymph Absolute 0.9 x10*3/mcL Low 1.0-4.8 [facility] Comment on above: Performed By: #### B LDC #### [address] [address] Lymphocytes/100 WBC (Bld) 10.6 % Low 27.2-40.8 [facility] Comment on above: Performed By: #### B LDC #### [address] [address] [place] Absolute 0.9 x10*3/mcL Normal 0.1-1.1 [facility] Comment on above: Performed By: #### B LDC #### [address] [address] Monocytes/100 WBC (Bld) 10.2 % Normal 3.7-11.9 [facility] Comment on above: Performed By: #### B LDC #### [address] [address] Neutro Absolute 6.9 x10*3/mcL Normal 1.8-7.7 [facility] Comment on above: Performed By: #### B LDC #### [address] [address] Neutro Auto 78.9 % High 47.2-70.8 [facility] Comment on above: Performed By: #### B LDC #### [address] [address] HSTI Randomon 01-05-2025 hs Troponin I 561 ng/L Critically abnormal 0-15 [facility] Comment on above: Result Comment: Crit ical Result Notification Called date and time: 01/05/2025 06:45:33 EDT Result called to and read back by: Doretha Arana SPECIALIST ICU (First, Last, Title, Location) Performed By: #### C D:[id number] ####[address] [address] hs Troponin I 504 ng/L Critically abnormal 0-15 [facility] Comment on above: Result Comment: Crit ical Result Notification Called date and time: 01/05/2025 05:10:49 EDT Result called to and read back by: Tyron Wise RN 6NU (First, Last, Title, Location) Performed By: #### B LDC #### [facility] (DEFAULT) [address] [place] [address] [address] Hemoglobinon 01-05-2025 Hemoglobin (Bld) [Mass/Vol] 8.9 g/dL Low 12.0-16.0 [facility] Comment on above: Performed By: #### B LDC #### [facility] [address] [place] [address] Hep Func Panelon 01-05-2025 Albumin [Mass/Vol] 3.6 g/dL Low 3.7-5.3 [facility] Comment on above: Performed By: #### B LDC #### [facility] (DEFAULT) [address] [place] [address] [facility] [address] [place] [address] Alk Phos 60 IU/L Normal 34-104 [facility] Comment on above: Performed By: #### B LDC #### [facility] (DEFAULT) [address] [place] [address] [facility] [address] [place] [address] ALT [Catalytic activity/Vol] 15 U/L Normal 7-52 [facility] Comment on above: Performed By: #### B LDC #### [facility] (DEFAULT) [address] [place] [address] [facility] [address] [place] [address] AST [Catalytic activity/Vol] 30 U/L Normal 13-39 [facility] Comment on above: Performed By: #### B LDC #### [facility] (DEFAULT) [address] [place] [address] [facility] [address] [place] [address] Bili Direct 0.10 mg/dL Normal 0.03-0.18 [facility] Comment on above: Performed By: #### B LDC #### [facility] (DEFAULT) [address] [place] [address] [facility] [address] [place] [address] Bili Indirect 0.8 mg/dL Normal 0.0-1.0 [facility] Comment on above: Performed By: #### B LDC #### [facility] (DEFAULT) [address] [place] [address] [facility] [address] [place] [address] Bili Total 0.9 mg/dL Normal 0.3-1.0 [facility] Comment on above: Performed By: #### B LDC #### [facility] (DEFAULT) [address] [place] [address] [facility] [address] [place] [address] Protein [Mass/Vol] 5.5 g/dL Low 6.0-8.3 [facility] Comment on above: Performed By: #### B LDC #### [facility] (DEFAULT) [address] [place] [address] [facility] [address] [place] [address] Hgb & Hcton 01-05-2025 Hematocrit (Bld) [Volume fraction] 28.6 % Low 36.0-46.0 [facility] Comment on above: Performed By: #### B LDC #### [facility] (DEFAULT) [address] [place] [address] [facility] [address] [place] [address] Hemoglobin (Bld) [Mass/Vol] 9.7 g/dL Low 12.0-16.0 [facility] Comment on above: Performed By: #### B LDC #### [facility] (DEFAULT) [address] [place] [address] [facility] [address] [place] [address] Lactic Acid, Randomon 2024 Lactic Acid Lvl 1.9 mmol/L Normal 0.5-2.0 [facility] Comment on above: Performed By: #### L A ####[facility] [place] [address] Magnesiumon 01-05-2025 Magnesium [Mass/Vol] 1.8 mg/dL Normal 1.7-2.4 [facility] Comment on above: Performed By: #### M G ####[facility] [place] [address] Orthopedic Progress Noteon 0 01-05-2025 Orthopedic Progress Note Subjective POD#1 s/p L2-S1 decompression and fusion. Patient transferred last night due to hypotension. Hospitalist consulted. HGB 9.9. Patient denies radicular pain. Denies headache. No BM. Objective Vitals & Measurements T: 36.4 ?C (Oral) HR: 63 (Peripheral) RR: 16 BP: 141/60 SpO2: 96% HT: 165 cm HT: 170 cm WT: 57 kg BMI: 19.72 BMI: 20.94 Additional Vitals No qualifying data available. Lab Results Microbiology - Current Encounter No qualifying data available. Physical Exam Motor 5/5 NVI Drsg C/D/I Medications Inpatient ceFAZolin, 1 g= 50 mL, IV Piggyback, q8hr Colace, 100 mg, Oral, BID cyclobenzaprine, 10 mg, Oral, q8hr, PRN Dulcolax Laxative, 10 mg, Oral, Daily, PRN Dulcolax Laxative, 10 mg= 1 supp, Rectal, Daily, PRN Fleet Enema 7 g-19 g rectal enema, 133 mL, Rectal, Daily, PRN MiraLax, 17 g= 1 EA, Oral, Daily morphine, 2 mg= 1 mL, IV Push, q3hr, PRN NS 1,000 mL, 1000 mL, IV Percocet 5/325 oral tablet, 1 tabs, Oral, q6hr, PRN Zofran, 4 mg= 2 mL, IV Push, q4hr, PRN Assessment/Plan POD#1 s/p L2-S1 decompression and fusion Plan 1. Continue drains 2. HGB stable 9.9 3. Activity as tolerated 4. Remove valencia once patient is ambulating 5. Pain controlled 6. Discharge pending Electronically signed by Pb Ko PA-C 01/05/25 06:52 EDT Normal [facility] POC Glucose Randomon 025 Glucose [Mass/Vol] 120 mg/dL High 70-99 [facility] Comment on above: Performed By: #### C D:[id number] ####[facility] [place] [address] XR OR Spine Lumbar Crossfire on 01-05-2025 XR OR Spine Lumbar Crossfire This report was not created by a radiologist, physician, or advanced practice provider. The details of this surgical case can be found within the surgical operative note. The surgical Operative note is located within the patient's chart. Final Signed by: Deepika Dodge Signed (Electronic Signature): 01/05/2025 7:08 am Transcribed DT/TM: 01/05/2025 7:08 (If Report Is Signed, Electronically Signed in Other Vendor System) Normal [facility] ABO/Rhon 01-04-2025 ABO/Rh ABO/Rh: A POS Normal [facility] Comment on above: Performed By: #### A [facility] #### [facility] (UNKNOWN) [address] [place] [address] ABSC Autoon 01-04-2025 ABSC Auto Negative Normal [facility] Comment on above: Performed By: #### B LDC #### [facility] [address] [place] [address] Activated partial thrombopla stin time (aPTT) in platelet poor plasma by coagulation aOrdered By: Jae Alvarez on 12-28-2024 aPTT Coag (PPP) [Time] 26.7 s 22.3-36.2 [facility] Basophils Auto (Bld) [#/Vol] Ordered By: Jae Alvarez on 12-28-2024 Basophils (Bld) [#/Vol] 0.0 10 3/uL 0.0-0.1 [facility] Basophils/100 WBC Auto (Bld) Ordered By: Jae Alvarez on 12-28-2024 Basophils/100 WBC (Bld) 0.4 % 0.2-2.0 [facility] Eosinophils/100 WBC Auto (Bl d)Ordered By: Jae Alvarez on 12-28-2024 Eosinophils/100 WBC (Bld) 3.0 % 0.9-7.0 [facility] Erythrocyte distribution wid th Auto (RBC) [Ratio]Ordered By: Jae Alvarez on 12-28-2024 Erythrocyte distribution width (RBC) [Ratio] 12.4 % 11.0-15.0 [facility] Glomerular filtration rate ( GFR) estimation in non- AmericanOrdered By: Jae Alvarez on 12-28-2024 GFR/1.73 sq M.predicted among non-blacks MDRD (S/P/Bld) [Vol rate/Area] mL/min/{1.73_m2} >=60 mL/min/1.73m 2 [facility] Hematocrit Auto (Bld) [Volum e fraction]Ordered By: Jae Alvarez on 12-28-2024 Hematocrit (Bld) [Volume fraction] 40.2 % 36.0-48.0 [facility] Hemoglobin [Mass/volume] in BloodOrdered By: Jae Alvarez on 12-28-2024 Hemoglobin (Bld) [Mass/Vol] 13.1 g/dL 12.0-16.0 [facility] INR in Platelet poor plasma by Coagulation assayOrdered By: Jae Alvarez on 12-28-2024 INR Coag (PPP) [Relative time] 1.02 {INR} [facility] Comment on above: DESIRED INR:2.0-3.0 CONDITIONS NOT LISTED BELOW2.5-3.5 FOR PROSTHETIC HEART VALVE REPLACEMENT2.5-3.5 RECURRENT THROMBOSIS Laboratory - Chemistry and C hemistry - challengeOrdered By: Jae Alvarez on 12-28-2024 Calcium [Mass/Vol] 9.2 mg/dL 8.5-10.1 [facility] Chloride [Moles/Vol] 104 mmol/L 98-107 [facility] CO2 [Moles/Vol] 30.9 mmol/L 21.0-32.0 [facility] Creatinine [Mass/Vol] 0.87 mg/dL 0.55-1.02 [facility] GFR/1.73 sq M.predicted MDRD (S/P/Bld) [Vol rate/Area] mL/min/{1.73_m2} >=60 mL/min/1.73m 2 [facility] Glucose [Mass/Vol] 91 mg/dL 74-106 [facility] Potassium [Moles/Vol] 3.8 mmol/L 3.5-5.1 [facility] Sodium [Moles/Vol] 142 mmol/L 136-145 [facility] Urea nitrogen [Mass/Vol] 13.0 mg/dL 7.0-18.0 [facility] Urea nitrogen/Creatinine [Mass ratio] 14.9 mg/mg [facility] Laboratory - Hematology and Cell countsOrdered By: Jae Alvarez on 12-28-2024 Immature granulocytes/100 WBC (Bld) 0.2 % 0.0-0.5 [facility] Leukocytes [#/volume] correc bill for nucleated erythrocytes in Blood by Automated counOrdered By: Jae Alvarez on 12-28-2024 WBC corrected for nucl RBC Auto (Bld) [#/Vol] 4.7 10 3/uL 4.0-11.0 [facility] Lymphocytes Auto (Bld) [#/Vo l]Ordered By: Jae Alvarez on 12-28-2024 Lymphocytes (Bld) [#/Vol] 1.3 10 3/uL 1.2-3.8 [facility] Lymphocytes/100 WBC Auto (Bl d)Ordered By: Jae Alvarez on 12-28-2024 Lymphocytes/100 WBC (Bld) 27.4 % 20.5-60.0 [facility] MCH Auto (RBC) [Entitic mass ]Ordered By: Jae Alvarez on 12-28-2024 MCH (RBC) [Entitic mass] 31.6 pg 26.7-34.0 [facility] MCHC Auto (RBC) [Mass/Vol]Or dered By: Jae Alvarez on 12-28-2024 MCHC (RBC) [Mass/Vol] 32.6 g/dL 29.9-35.2 [facility] MCV Auto (RBC) [Entitic vol] Ordered By: Jae Alvarez on 12-28-2024 MCV (RBC) [Entitic vol] 97.1 fL 81.0-99.0 [facility] Monocytes Auto (Bld) [#/Vol] Ordered By: Selmicheln Kim on 12-28-2024 Monocytes (Bld) [#/Vol] 0.6 10 3/uL 0.3-0.8 [facility] Monocytes/100 WBC Auto (Bld) Ordered By: Selvon Kim on 12-28-2024 Monocytes/100 WBC (Bld) 13.4 % High 1.7-12.0 [facility] Neutrophils Auto (Bld) [#/Vo l]Ordered By: Selvon Kim on 12-28-2024 Neutrophils (Bld) [#/Vol] 2.6 10 3/uL 1.4-6.5 [facility] Neutrophils/100 WBC Auto (Bl d)Ordered By: Selvon Kim on 12-28-2024 Neutrophils/100 WBC (Bld) 55.6 % 43.0-75.0 [facility] No Panel InformationOrdered By: Jae Alvarez on 12-28-2024 Eosinophils # (Auto) 0.1 10 3/uL 0.0-0.7 [facility] Immature Granulocyte # (Auto) 0.01 10 3/uL 0.00-0.03 [facility] Platelet mean volume Auto (B ld) [Entitic vol]Ordered By: Selmicheln Kim on 12-28-2024 Platelet mean volume (Bld) [Entitic vol] 10.1 fL 9.5-13.5 [facility] Platelets Auto (Bld) [#/Vol] Ordered By: Selmatthew Dossir on 12-28-2024 Platelets (Bld) [#/Vol] 212 10 3/uL 150-450 [facility] Prothrombin time (PT)Ordered By: Selmatthew Dossir on 12-28-2024 PT Coag (PPP) [Time] 10.8 s 9.0-11.6 [facility] RBC Auto (Bld) [#/Vol]Ordere d By: Selvon Kim on 12-28-2024 RBC (Bld) [#/Vol] 4.14 10 6/uL Low 4.20-5.40 [facility] Serum or plasma anion gap de terminationOrdered By: Selvon Kim on 12-28-2024 Anion gap [Moles/Vol] 10.9 mmol/L [facility] CT Spine Lumbar w/ Contrasto n [...] significant canal or foraminal narrowing. Ordering Provider: MARK LEMUS FINAL REPORT Dictated: 11/23/2024 2:21 pm Shay Schulte MD Signed (Electronic Signature): 11/23/2024 2:21 pm Signed by: hSay Schulte MD Transcribed by: DIOGO Technologist: ASHUTOSH Keenan [facility] XR Myelography Lumbosacralon 11-23-2024 XR [...] = 10.30 DAP = 233.14 Ordering Provider: MARK LEMUS FINAL REPORT Dictated: 11/23/2024 11:44 am Shay Schulte MD Signed (Electronic Signature): 11/23/2024 11:44 am Signed by: Shay Schulte MD Transcribed by: DIOGO Technologist: GENO [facility] Basophils Auto (Bld) [#/Vol] on 09-09-2023 Basophils (Bld) [#/Vol] 0.0 10 3/uL 0.0-0.1 [facility] Basophils/100 WBC Auto (Bld) on 09-09-2023 Basophils/100 WBC (Bld) 0.4 % 0.2-2.0 [facility] Casts typing in urine sedime nt by light microscopyon 09-09-2023 Casts LM Nom (Urine sed) NONE SEEN #/LPF NONE S EEN [facility] Eosinophils/100 WBC Auto (Bl d)on 09-09-2023 Eosinophils/100 WBC (Bld) 1.1 % 0.9-7.0 [facility] Erythrocyte distribution wid th Auto (RBC) [Ratio]on 09-09-2023 Erythrocyte distribution width (RBC) [Ratio] 13.0 % 11.0-15.0 [facility] Estimated glomerular filtrat ion rate (GFR) non- Americanon 09-09-2023 GFR/1.73 sq M.predicted among non-blacks MDRD (S/P/Bld) [Vol rate/Area] 52 mL/min/{1.73_m2} Low >=60 [facility] Globulin Calc (S) [Mass/Vol] on 09-09-2023 Globulin (S) [Mass/Vol] 3.5 g/dL [facility] Hematocrit Auto (Bld) [Volum e fraction]on 09-09-2023 Hematocrit (Bld) [Volume fraction] 39.0 % 36.0-48.0 [facility] Hemoglobin [Mass/volume] in Bloodon 09-09-2023 Hemoglobin (Bld) [Mass/Vol] 12.6 g/dL 12.0-16.0 [facility] - Chemistry and C hemistry - challengeon 09-09-2023 Albumin [Mass/Vol] 3.6 g/dL 3.4-5.0 [facility] ALP [Catalytic activity/Vol] 74 U/L 46-116 [facility] ALT [Catalytic activity/Vol] 30 U/L 14-59 [facility] AST [Catalytic activity/Vol] 24 U/L 15-37 [facility] Bilirubin [Mass/Vol] 0.5 mg/dL 0.2-1.0 [facility] Calcium [Mass/Vol] 9.8 mg/dL 8.5-10.1 [facility] Chloride [Moles/Vol] 102 mmol/L 98-107 [facility] CO2 [Moles/Vol] 31.2 mmol/L 21.0-32.0 [facility] Creatinine [Mass/Vol] 1.01 mg/dL 0.55-1.02 [facility] GFR/1.73 sq M.predicted MDRD (S/P/Bld) [Vol rate/Area] mL/min/{1.73_m2} >=60 [facility] Glucose [Mass/Vol] 100 mg/dL 74-106 [facility] Lipase [Catalytic activity/Vol] 25.0 U/L 16.0-77.0 [facility] Potassium [Moles/Vol] 3.9 mmol/L 3.5-5.1 [facility] Protein [Mass/Vol] 7.1 g/dL 6.4-8.2 [facility] Sodium [Moles/Vol] 140 mmol/L 136-145 [facility] Urea nitrogen [Mass/Vol] 22.0 mg/dL High 7.0-18.0 [facility] Urea nitrogen/Creatinine [Mass ratio] 21.8 mg/mg [facility] Bilirubin Ql (U) Negative NEGATIVE [facility] s Glucose (U) [Mass/Vol] Negative NEGATIVE [facility] Ketones Ql (U) Negative NEGATIVE [facility] pH (U) 6.0 [pH] 5.0-9.0 [facility] Specific gravity (U) [Rel density] 1.020 1.005-1.025 [facility] Urobilinogen Qn (U) 0.2 {Sosa'U}/dL 0.2-1.0 [facility] - Hematology and Cell countson 09-09-2023 Immature granulocytes/100 WBC (Bld) 0.3 % 0.0-0.5 [facility] - Specimen inform ationon 09-09-2023 Appearance (U) CLEAR CLEAR [facility] Color (U) DK. YELLOW YELLOW [facility] - Urinalysison Amorphous sediment LM Ql (Urine sed) RARE [facility] Leukocyte esterase Test strip Ql (U) TRACE Abnormal NEGATIVE [facility] Nitrite Ql (U) Negative NEGATIVE [facility] Protein Ql (U) Negative NEG/TRACE [facility] Leukocytes [#/volume] correc bill for nucleated erythrocytes in Blood by Automated counon 09-09-2023 WBC corrected for nucl RBC Auto (Bld) [#/Vol] 10.7 10 3/uL 4.0-11.0 [facility] Lymphocytes Auto (Bld) [#/Vo l]on 09-09-2023 Lymphocytes (Bld) [#/Vol] 1.5 10 3/uL 1.2-3.8 [facility] Lymphocytes/100 WBC Auto (Bl d)on 09-09-2023 Lymphocytes/100 WBC (Bld) 13.7 % Low 20.5-60.0 [facility] MCH Auto (RBC) [Entitic mass ]on 09-09-2023 MCH (RBC) [Entitic mass] 31.2 pg 26.7-34.0 [facility] MCHC Auto (RBC) [Mass/Vol]on 09-09-2023 MCHC (RBC) [Mass/Vol] 32.3 g/dL 29.9-35.2 [facility] MCV Auto (RBC) [Entitic vol] on 09-09-2023 MCV (RBC) [Entitic vol] 96.5 fL 81.0-99.0 [facility] Monocytes Auto (Bld) [#/Vol] on 09-09-2023 Monocytes (Bld) [#/Vol] 1.0 10 3/uL High 0.3-0.8 [facility] Monocytes/100 WBC Auto (Bld) on 09-09-2023 Monocytes/100 WBC (Bld) 9.5 % 1.7-12.0 [facility] Mucus LM Ql (Urine sed)on Mucus Ql (Urine sed) NONE SEEN NONE SEEN [facility] Neutrophils Auto (Bld) [#/Vo l]on 09-09-2023 Neutrophils (Bld) [#/Vol] 8.0 10 3/uL High 1.4-6.5 [facility] Neutrophils/100 WBC Auto (Bl d)on 09-09-2023 Neutrophils/100 WBC (Bld) 75.0 % 43.0-75.0 [facility] No Panel Informationon 09-08 Eosinophils # (Auto) 0.1 10 3/uL 0.0-0.7 [facility] Immature Granulocyte # (Auto) 0.03 10 3/uL 0.00-0.03 [facility] Urine Bacteria NONE SEEN #/HPF NONE SEEN [facility] Urine Culture Reflexed NO [facility] Urine Microscopic Review YES [facility] Urine Occult Blood LARGE Abnormal NEGATIVE [facility] Urine Other Crystals Seen #/HPF Abnormal None Seen [facility] Urine RBC 10-20 #/HPF Abnormal 0-2 [facility] Urine Squamous Epithelial Cells NONE SEEN #/LPF NONE/RARE [facility] Urine Uric Acid Crystals FEW [facility] Urine WBC 2-5 #/HPF Abnormal NONE SEEN [facility] Platelet mean volume Auto (B ld) [Entitic vol]on 09-09-2023 Platelet mean volume (Bld) [Entitic vol] 9.5 fL 9.5-13.5 [facility] Platelets Auto (Bld) [#/Vol] on 09-09-2023 Platelets (Bld) [#/Vol] 240 10 3/uL 150-450 [facility] RBC Auto (Bld) [#/Vol]on RBC (Bld) [#/Vol] 4.04 10 6/uL Low 4.20-5.40 [facility] Serum or plasma albumin/glob ulin mass ratioon 09-09-2023 Albumin/Globulin [Mass ratio] 1.0 {ratio} [facility] Serum or plasma anion gap de terminationon 09-09-2023 Anion gap [Moles/Vol] 10.7 mmol/L [facility] XR RIBS LT PA Stephen 3 [...] PB GENAO Date: 2022-10-02 11:51 Normal [facility] XR CSPINE 2_3 VIEWSon 2022 [...] by: ISAEL GRIFFIN Date: 2022-09-05 15:58 Normal [facility] CBC AUTO DIFFon 12-31-2021 BASO # 0.0 103/ul Normal 0.0-0.1 [facility] Comment on above: Performed By: #### C BC #### [facility] [address] [address] [address] Radha Land Basophils/100 WBC (Bld) 0.2 % Normal 0.2-2.0 [facility] Comment on above: Performed By: #### C BC #### [facility] [address] [address] [address] Radha Land EO # 0.2 103/ul Normal 0.0-0.7 [facility] Comment on above: Performed By: #### C BC #### [facility] [address] [address] [address] Radha Land Eosinophils/100 WBC (Bld) 1.7 % Normal 0.9-7.0 [facility] Comment on above: Performed By: #### C BC #### [facility] [address] [place] [address] Dr. Radha Land Erythrocyte distribution width (RBC) [Ratio] 13.4 % Normal 11.0-15.0 [facility] Comment on above: Performed By: #### C BC #### [facility] [address] [place] [address] Dr. Radha Land Hematocrit (Bld) [Volume fraction] 40.9 % Normal 36.0-48.0 [facility] Comment on above: Performed By: #### C BC #### [facility] [address] [place] [address] Dr. Radha Land Hemoglobin (Bld) [Mass/Vol] 13.1 g/dL Normal 12.0-16.0 [facility] Comment on above: Performed By: #### C BC #### [facility] [address] [place] [address] Dr. Radha Land IG # 0.05 10e3/ul Critically high 0.00-0.03 [facility] Comment on above: Performed By: #### C BC #### [facility] [address] [place] [address] Dr. Radha Land IG % 0.4 % Normal 0.0-0.5 [facility] Comment on above: Performed By: #### C BC #### [facility] [address] [address] [address] Radha Land LYMPH # 1.4 103/ul Normal 1.2-3.8 [facility] Comment on above: Performed By: #### C BC #### [facility] [address] [address] [address] Radha Land Lymphocytes/100 WBC (Bld) 10.8 % Critically low 20.5-60.0 [facility] Comment on above: Performed By: #### C BC #### [facility] [address] [address] [address] Radha Land MANUAL DIFF REQ NO Normal [facility] Comment on above: Performed By: #### C BC #### [facility] [address] [place] [address] Dr. Radha Land MCH (RBC) [Entitic mass] 31.5 pg Normal 26.7-34.0 [facility] Comment on above: Performed By: #### C BC #### [facility] [address] [place] [address] Dr. Radha Land MCHC (RBC) [Mass/Vol] 32.0 g/dL Normal 29.9-35.2 [facility] Comment on above: Performed By: #### C BC #### [facility] [address] [place] [address] Dr. Radha Land MCV (RBC) [Entitic vol] 98.3 fL Normal 81.0-99.0 [facility] Comment on above: Performed By: #### C BC #### [facility] [address] [address] [address] Radha Land MONO # 1.3 103/ul Critically high 0.3-0.8 [facility] Comment on above: Performed By: #### C BC #### [facility] [address] [place] [address] Dr. Radha Land Monocytes/100 WBC (Bld) 9.7 % Normal 1.7-12.0 [facility] Comment on above: Performed By: #### C BC #### [facility] [address] [address] [address] Radha Land NEUT # 10.2 103/ul Critically high 1.4-6.5 [facility] Comment on above: Performed By: #### C BC #### [facility] [address] [address] [address] Radha Land Neutrophils/100 WBC (Bld) 77.2 % Critically high 43.0-75.0 [facility] Comment on above: Performed By: #### C BC #### [facility] [address] [place] [address] Dr. Radha Land Platelet mean volume (Bld) [Entitic vol] 9.7 fL Normal 9.5-13.5 [facility] Comment on above: Performed By: #### C BC #### [facility] [address] [place] [address] Dr. Radha Land PLT 235 103/ul Normal 150-450 [facility] Comment on above: Performed By: #### C BC #### [facility] [address] [place] [address] Dr. Radha Land RBC 4.16 106/ul Critically low 4.20-5.40 [facility] Comment on above: Performed By: #### C BC #### [facility] [address] [place] [address] Dr. Radha Land WBC 13.2 103/ul Critically high 4.0-11.0 [facility] Comment on above: Performed By: #### C BC #### [facility] [address] [place] [address] Dr. Radha Land SED RATE WESTERGRENon 2021 SED RATE 35 mm/hr Critically high <=30 [facility] Comment on above: Performed By: #### S EDR #### [facility] [address] [place] [address] Dr. Radha Land CBC AUTO DIFFon 11-07-2021 BASO # 0.0 103/ul Normal 0.0-0.1 [facility] Comment on above: Performed By: #### C BC ####[facility] [address] [id number]. Radha Land Basophils/100 WBC (Bld) 0.3 % Normal 0.2-2.0 [facility] Comment on above: Performed By: #### C BC ####[facility] [address] [place], [place] [id number]. Radha Land EO # 0.2 103/ul Normal 0.0-0.7 [facility] Comment on above: Performed By: #### C BC ####[facility] [address] [place], [place] [address]Dr. Radha Land Eosinophils/100 WBC (Bld) 3.3 % Normal 0.9-7.0 [facility] Comment on above: Performed By: #### C BC ####[facility] [address] [place], [place] [address]Dr. Radha Land Erythrocyte distribution width (RBC) [Ratio] 13.2 % Normal 11.0-15.0 [facility] Comment on above: Performed By: #### C BC ####[facility] [address] [place], [place] [address]Dr. Radha Land Hematocrit (Bld) [Volume fraction] 41.9 % Normal 36.0-48.0 [facility] Comment on above: Performed By: #### C BC ####[facility] [address] [place], [place] [address]Dr. Radha Land Hemoglobin (Bld) [Mass/Vol] 13.4 g/dL Normal 12.0-16.0 [facility] Comment on above: Performed By: #### C BC ####[facility] [address] [place], [place] [address]Dr. Radha Land IG # 0.01 10e3/ul Normal 0.00-0.03 [facility] Comment on above: Performed By: #### C BC ####[facility] [address] [place], [place] [address]Dr. Radha Land IG % 0.2 % Normal 0.0-0.5 [facility] Comment on above: Performed By: #### C BC ####[facility] [address] [id number]. Jacquelyncharlotte Emery LYMPH # 1.6 103/ul Normal 1.2-3.8 [facility] Comment on above: Performed By: #### C BC ####[facility] [address] [phone]. Radha Land Lymphocytes/100 WBC (Bld) 27.5 % Normal 20.5-60.0 [facility] Comment on above: Performed By: #### C BC ####[facility] [address] [phone]. Radha Land MANUAL DIFF REQ NO Normal [facility] Comment on above: Performed By: #### C BC ####[facility] [address] [phone]. Radha Land MCH (RBC) [Entitic mass] 31.2 pg Normal 26.7-34.0 [facility] Comment on above: Performed By: #### C BC ####[facility] [address] [phone]. Radha Land MCHC (RBC) [Mass/Vol] 32.0 g/dL Normal 29.9-35.2 [facility] Comment on above: Performed By: #### C BC ####[facility] [address] [phone]. Radha Land MCV (RBC) [Entitic vol] 97.7 fL Normal 81.0-99.0 [facility] Comment on above: Performed By: #### C BC ####[facility] [address] [phone]. Radha Land MONO # 0.7 103/ul Normal 0.3-0.8 [facility] Comment on above: Performed By: #### C BC ####[facility] [address] [phone]. Radha Land Monocytes/100 WBC (Bld) 12.4 % Critically high 1.7-12. 0 [facility] Comment on above: Performed By: #### C BC ####[facility] [address] [phone]. Radha Land NEUT # 3.2 103/ul Normal 1.4-6.5 [facility] Comment on above: Performed By: #### C BC ####[facility] [address], [place] [address]Nj. Radha Land Neutrophils/100 WBC (Bld) 56.3 % Normal 43.0-75.0 [facility] Comment on above: Performed By: #### C BC ####[facility] [address] [phone]. Radha Land Platelet mean volume (Bld) [Entitic vol] 9.4 fL Critically low 9.5-13.5 [facility] Comment on above: Performed By: #### C BC ####[facility] [address] [phone]. Radha Land PLT 226 103/ul Normal 150-450 [facility] Comment on above: Performed By: #### C BC ####[facility] [address] [phone]. Radha Land RBC 4.29 106/ul Normal 4.20-5.40 [facility] Comment on above: Performed By: #### C BC ####[facility] [address] [phone]. Radha Land WBC 5.7 103/ul Normal 4.0-11.0 [facility] Comment on above: Performed By: #### C BC ####[facility] [address] [id number]. Radha Land LIPID PROFILEon 11-07-2021 CHOL-HDL RATIO NORM SEE BELOW Normal [facility] Comment on above: Result Comment: 3.3 - 4.4 LOW RISK 4.4 - 7.1 AVERAGE RISK 7.1 - 11.0 MODERATE RISK >11.0 HIGH RISK Performed By: #### L IPID, CMP #### [facility] [address] [place], [place] [address] Dr. Radha Land Cholesterol [Mass/Vol] 257 mg/dL Critically high <=200 [facility] Comment on above: Performed By: #### L IPID, CMP #### [facility] [address] [address] [address] Radha Land Cholesterol in HDL [Mass/Vol] 76 mg/dL Critically high 40-60 [facility] Comment on above: Performed By: #### L IPID, CMP #### [facility] [address] [address] [address] Radha Land Cholesterol in LDL [Mass/Vol] 163.8 mg/dL Normal [facility] Comment on above: Performed By: #### L IPID, CMP #### [facility] [address] [address] [address] Radha Land Cholesterol.total/Choles terol in HDL [Mass ratio] 3.4 {ratio} Normal [facility] Comment on above: Performed By: #### L IPID, CMP #### [facility] [address] [place] [address] Dr. Radha Land HDL NORMAL > or = 60 mg/dl - LOW CARDIOVASCULAR RISK <40 mg/dl - HIGH CARDIOVASCULAR RISK Normal [facility] Comment on above: Performed By: #### L IPID, CMP #### [facility] [address] [place] [address] Dr. Radha Land LDL CALC NORMAL SEE BELOW Normal [facility] Comment on above: Result Comment: <100 mg/dl OPTIMAL 100 - 129 mg/dl NEAR OR ABOVE OPTIMAL 130 - 159 mg/dl BORDERLINE HIGH 160 - 189 mg/dl HIGH >190 mg/dl VERY HIGH Performed By: #### L IPID, CMP #### [facility] [address] [address] [address] Radha Land Triglyceride [Mass/Vol] 86 mg/dL Normal <=150 T [facility] Comment on above: Performed By: #### L IPID, CMP #### [facility] [address] [address] [address] Radha Land VLDL CALC 17.2 mg/dL Normal [facility] Comment on above: Performed By: #### L IPID, CMP #### [facility] [address] [place], [place] [address] Dr. Radha Land MG MAMM SCREEN 3D ROD CADon 11-07-2021 MG MAMM SCREEN 3D ROD CAD Patient: NINFA LEA Exam Date: 11/07/2021 : 1940 Gender:F Ordering : DR RUBA HIGGINS M.D. Admission #: [id number] Family : Order #: [id number] CLICK HERE TO VIEW EXAM RADIOLOGY REPORT PROCEDURE: MAMMOGRAM SCREENING 3D BILATERAL CAD COMPARISON: MG MAMM SCREEN ROD W CAD, 11/04/2019. MG MAMM SCREEN 3D ROD CAD, 11/06/2020. INDICATIONS: Screening mammography Calculator Name NCI Breast Cancer Risk Assessment Tool 5 Year Breast Cancer Risk 1.20% Lifetime Breast Cancer Risk 1.70% Personal Breast Cancer No Personal Ovarian Cancer No Treatments None Family Cancers Mother with ovarian cancer at age 48. LOCATION: [facility] BREAST COMPOSITION: Extremely dense, which [...] Arriaga MD on 11/07/2021 at 11:21 Normal [facility] PROF 14(COMP METB)on 022 Albumin [Mass/Vol] 3.6 g/dL Normal 3.4-5.0 [facility] Comment on above: Performed By: #### L SRIKANTH, CMP #### [facility] [address] [place], [place] [address] Dr. Radha Land Albumin/Globulin [Mass ratio] 0.9 {ratio} Normal [facility] Comment on above: Performed By: #### L IPID, CMP #### [facility] [address] [place], [place] [address] Dr. Radha Land ALP [Catalytic activity/Vol] 79 U/L Normal 46-116 [facility] Comment on above: Performed By: #### L IPID, CMP #### [facility] [address] [address] [address] Radha Land ALT [Catalytic activity/Vol] 32 U/L Normal 14-59 [facility] Comment on above: Performed By: #### L IPID, CMP #### [facility] [address] [address] [address] Radha Land Anion gap [Moles/Vol] 6.1 mmol/L Normal [facility] Comment on above: Performed By: #### L IPID, CMP #### [facility] [address] [place] [address] Dr. Radha Land AST [Catalytic activity/Vol] 28 U/L Normal 15-37 [facility] Comment on above: Performed By: #### L IPID, CMP #### [facility] [address] [place] [address] Dr. Radha Land Bilirubin [Mass/Vol] 0.6 mg/dL Normal 0.2-1.0 [facility] Comment on above: Performed By: #### L IPID, CMP #### [facility] [address] [place] [address] Dr. Radha Land Calcium [Mass/Vol] 9.1 mg/dL Normal 8.5-10.1 [facility] Comment on above: Performed By: #### L IPID, CMP #### [facility] [address] [place] [address] Dr. Radha Land Chloride [Moles/Vol] 104 mmol/L Normal 98-107 [facility] Comment on above: Performed By: #### L IPID, CMP #### [facility] [address] [place] [address] Dr. Radha Land CO2 [Moles/Vol] 31.0 mmol/L Normal 21.0-32.0 [facility] Comment on above: Performed By: #### L IPID, CMP #### [facility] [address] [place] [address] Dr. Radha Land Creatinine [Mass/Vol] 0.86 mg/dL Normal 0.55-1.02 [facility] Comment on above: Performed By: #### L IPID, CMP #### [facility] [address] [place] [address] Dr. Radha Land EGFR-AF INDONESIAN >60 Normal >=60 [facility] Comment on above: Performed By: #### L IPID, CMP #### [facility] [address] [address] [address] Radha Land EGFR-NON AF INDONESIAN >60 Normal >=60 [facility] Comment on above: Performed By: #### L IPID, CMP #### [facility] [address] [place] [address] Dr. Radha Land Globulin (S) [Mass/Vol] 4.1 g/dL Normal [facility] Comment on above: Performed By: #### L IPID, CMP #### [facility] [address] [place] [address] Dr. Radha Land Glucose [Mass/Vol] 89 mg/dL Normal 74-106 [facility] [place] [facility] Comment on above: Performed By: #### L IPID, CMP #### [facility] [address] [place] [address] Dr. Radha Land Potassium [Moles/Vol] 4.1 mmol/L Normal 3.5-5.1 [facility] Comment on above: Performed By: #### L IPID, CMP #### [facility] [address] [place] [address] Dr. Radha Land Protein [Mass/Vol] 7.7 g/dL Normal 6.4-8.2 [facility] [place] [facility] Comment on above: Performed By: #### L IPID, CMP #### [facility] [address] [place] [address] Dr. Radha Land Sodium [Moles/Vol] 137 mmol/L Normal 136-145 [facility] Comment on above: Performed By: #### L IPID, CMP #### [facility] [address] [place] [address] Dr. Radha Land Urea nitrogen [Mass/Vol] 12.0 mg/dL Normal 7.0-18.0 [facility] Comment on above: Performed By: #### L IPID, CMP #### [facility] [address] [address] [address] Radha Land Urea nitrogen/Creatinine [Mass ratio] 14.0 mg/mg Normal [facility] Comment on above: Performed By: #### L IPID, CMP #### [facility] [address] [address] [address] Radha Land Vital Signs Date Time Vital Sign Value Performing Clinician Facility 12-28-2024 14:24-0400 Body height 165.1 cm Ruba Higgins MD Work Phone: [facility] 12-28-2024 14:24-0400 Body mass index (BMI) [Ratio] 20.5 kg/m2 Ruba Higgins MD Work Phone: [facility] 12-28-2024 14:24-0400 Body weight 55.79 kg Ruba Higgins MD Work Phone: [facility] 12-28-2024 14:24-0400 Diastolic blood pressure 73 mm[Hg] Ruba Higgins MD Work Phone: [facility] 12-28-2024 14:24-0400 Heart rate 57 /min Ruba Higgins MD Work Phone: [facility] 12-28-2024 14:24-0400 Systolic blood pressure 133 mm[Hg] Ruba Higgins MD Work Phone: [facility] 10-14-2024 09:57-0400 Body height 165.1 cm [facility] 10-14-2024 09:57-0400 Body mass index (BMI) [Ratio] 20.3 kg/m2 [facility] 10-14-2024 09:57-0400 Body weight 55.56 kg [facility] 10-14-2024 09:57-0400 Diastolic blood pressure 81 mm[Hg] [facility] 10-14-2024 09:57-0400 Heart rate 84 /min [facility] 10-14-2024 09:57-0400 Systolic blood pressure 160 mm[Hg] [facility] 09-15-2024 08:18-0400 Body weight 55.1 kg [facility] 09-15-2024 08:18-0400 Diastolic blood pressure 71 mm[Hg] [facility] 09-15-2024 08:18-0400 Systolic blood pressure 109 mm[Hg] [facility] 11-18-2023 10:53-0400 Body height 165.1 cm [facility] 11-18-2023 10:53-0400 Body mass index (BMI) [Ratio] 20.5 kg/m2 [facility] 11-18-2023 10:53-0400 Body weight 55.79 kg [facility] 11-18-2023 10:53-0400 Diastolic blood pressure 55 mm[Hg] [facility] 11-18-2023 10:53-0400 Heart rate 65 /min [facility] 11-18-2023 10:53-0400 Systolic blood pressure 132 mm[Hg] [facility] 11-06-2023 11:11-0400 Body height 165.1 cm [facility] 11-06-2023 11:11-0400 Body mass index (BMI) [Ratio] 20.2 kg/m2 [facility] 11-06-2023 11:11-0400 Body weight 55.33 kg [facility] 11-06-2023 11:11-0400 Diastolic blood pressure 67 mm[Hg] [facility] 11-06-2023 11:11-0400 Heart rate 61 /min [facility] 11-06-2023 11:11-0400 Systolic blood pressure 124 mm[Hg] [facility] 10-13-2023 12:31-0400 Blood Pressure Location Roman GUAN [facility] 10-13-2023 12:31-0400 Diastolic blood pressure 78 mm[Hg] Roman GUAN [facility] 10-13-2023 12:31-0400 Heart rate 80 /min Roman GUAN [facility] 10-13-2023 12:31-0400 Respiratory rate 16 /min Roman GUAN [facility] 10-13-2023 12:31-0400 Systolic blood pressure 134 mm[Hg] Roman GUAN [facility] 09-30-2023 14:31-0400 Body height 165.1 cm [facility] 09-30-2023 14:31-0400 Body mass index (BMI) [Ratio] 20.5 kg/m2 [facility] 09-30-2023 14:31-0400 Body weight 55.79 kg [facility] 09-30-2023 14:31-0400 Diastolic blood pressure 62 mm[Hg] [facility] 09-30-2023 14:31-0400 Heart rate 64 /min [facility] 09-30-2023 14:31-0400 Systolic blood pressure 104 mm[Hg] [facility] 09-17-2023 08:00-0400 Blood Pressure Location Roman GUAN [facility] 09-17-2023 08:00-0400 Diastolic blood pressure 80 mm[Hg] Roman GUAN [facility] 09-17-2023 08:00-0400 Heart rate 64 /min Roman GUAN [facility] 09-17-2023 08:00-0400 Systolic blood pressure 132 mm[Hg] Roman GUAN [facility] 01-10-2023 09:45-0400 Body height 165.1 cm Ruba Higgins Other [facility] Other 01-10-2023 09:45-0400 Body mass index (BMI) [Ratio] 20.87 kg/m2 Ruba Higgins Other [facility] Other 01-10-2023 09:45-0400 Body weight 56.88 kg Ruba Higgins Other [facility] Other 01-10-2023 09:45-0400 Diastolic blood pressure 78 mm[Hg] Ruba Higgins Other [facility] Other 01-10-2023 09:45-0400 Systolic blood pressure 142 mm[Hg] Ruba Higgins Other [facility] Other 10-28-2022 08:30-0400 Body height 165.1 cm Ruba Higgins Other [facility] Other 10-28-2022 08:30-0400 Body mass index (BMI) [Ratio] 20.47 kg/m2 Ruba Higgins Other [facility] Other 10-28-2022 08:30-0400 Body weight 55.79 kg Ruba Higgins Other [facility] Other 10-28-2022 08:30-0400 Diastolic blood pressure 47 mm[Hg] Ruba Higgins Other [facility] Other 10-28-2022 08:30-0400 Systolic blood pressure 124 mm[Hg] Ruba Higgins Other [facility] Other Encounters Encounter Date Encounter Type Care Provider Facility Start: 01-28-2025 End: 01-28-2025 ambulatory Roman GUAN [facility] Start: 01-28-2025 End: 01-28-2025 Patient encounter procedure Roman R GUAN [facility] [place] Start: 01-04-2025 End: 01-07-2025 ambulatory Ruba Higgins MD Facility:[facility] Start: 12-30-2024 End: 12-30-2024 ambulatory Jae Alaniz MD Facility:[facility] Start: 12-28-2024 End: 12-28-2024 ambulatory Ruba Higgins MD Work Phone: [facility] Work Phone: Start: 12-28-2024 End: 12-28-2024 Patient encounter procedure Ruba Higgins MD -[facility] Work Phone: Start: 12-28-2024 Non-patient / Non-visit Jae Alaniz MD -[facility] Work Phone: Start: 11-29-2024 End: 11-29-2024 ambulatory Roman GUAN Facility:[facility] Start: 11-29-2024 End: 11-29-2024 Patient encounter procedure Roman GUAN [facility] [place] Start: 11-23-2024 End: 11-23-2024 ambulatory MARK LEMUS [facility] Start: 11-01-2024 End: 11-01-2024 ambulatory Dulce Cifuentes MD Facility:[facility] Start: 10-14-2024 End: 10-14-2024 ambulatory [facility] Work Phone: Start: 10-14-2024 End: 10-14-2024 Patient encounter procedure [facility] Work Phone: Start: 09-15-2024 End: 09-15-2024 ambulatory [facility] Work Phone: Start: 09-15-2024 End: 09-15-2024 Patient encounter procedure [facility] Work Phone: Start: 08-18-2024 End: 08-18-2024 ambulatory [facility] Work Phone: Start: 08-18-2024 End: 08-18-2024 Patient encounter procedure [facility] Work Phone: Start: 03-16-2024 End: 03-16-2024 ambulatory [facility] Work Phone: Start: 03-16-2024 End: 03-16-2024 Patient encounter procedure [facility] Work Phone: Start: 01-05-2024 End: 01-05-2024 Bamboo flowsgayle Hoyt MD Work Phone: [facility] Start: 01-05-2024 End: 01-05-2024 Bamboo cathie Hoyt MD Work Phone: [facility] Start: 01-05-2024 End: 01-05-2024 ambulatory MAURA HOYT Not Available Start: 12-09-2023 End: 12-09-2023 ambulatory [facility] Work Phone: Start: 12-09-2023 End: 12-09-2023 Patient encounter procedure [facility] Work Phone: Start: 11-18-2023 End: 11-18-2023 ambulatory [facility] Work Phone: Start: 11-18-2023 End: 11-18-2023 Patient encounter procedure [facility] Work Phone: Start: 11-10-2023 Patient encounter procedure [facility] Start: 11-06-2023 End: 11-06-2023 Patient encounter procedure [facility] Work Phone: Start: 10-13-2023 End: 10-13-2023 Patient encounter procedure Roman GUAN [facility] Start: 09-30-2023 End: 09-30-2023 ambulatory [facility] Work Phone: Start: 09-30-2023 End: 09-30-2023 Patient encounter procedure [facility] Work Phone: Start: 09-17-2023 End: 09-17-2023 Patient encounter procedure Roman GUAN [facility] Start: 09-09-2023 Non-patient / Non-visit [facility] [employer] Work Phone: Start: 08-26-2023 End: 08-26-2023 ambulatory [facility] Work Phone: Start: 08-26-2023 End: 08-26-2023 Patient encounter procedure [facility] Work Phone: Start: 03-28-2023 End: 03-28-2023 ambulatory Ruba Higgins Other [facility] Other Start: 03-28-2023 Telephone encounter Ruba Higgins [facility] Start: 01-31-2023 End: 01-31-2023 ambulatory Ruba Higgins Other [facility] Other Start: 01-31-2023 Nursing evaluation o f patient and report Ruba Higgins [facility] Start: 01-14-2023 End: 01-14-2023 ambulatory Ruba Higgins Other [facility] Other Start: 01-14-2023 Telephone encounter Ruba Higgins [facility] Start: 01-10-2023 End: 01-10-2023 ambulatory Ruba Higgins Other [facility] Other Start: 01-10-2023 Office outpatient visit 15 minutes Ruba Higgins [facility] Start: 10-28-2022 End: 10-28-2022 ambulatory Ruba Higgins Other [facility] Other Start: 10-28-2022 Patient encounter procedure Ruba Higgins [facility] Start: 10-24-2022 End: 10-24-2022 ambulatory Ruba Higgins Other [facility] Other Start: 10-24-2022 Telephone encounter Ruba Gisela [facility] Start: 10-08-2022 End: 10-08-2022 ambulatory AJ ARCEO . Facility:[facility] Start: 10-02-2022 End: 10-03-[address] RUBA HIGGINS Facility:[facility] Start: 09-05-2022 End: 09-06-[address] RUBA HIGGINS Facility:[facility] Start: 09-05-2022 End: 09-06-[address] RUBA HIGGINS Facility:[facility] Start: 05-03-[address] RUBA HIGGINS Facil ity:[facility] Start: 03-26-[address] RUBA HIGGINS Facil ity:[facility] Start: 01-28-2022 End: 01-29-[address] RUBA HIGGINS Facility:[facility] Start: 01-07-2022 End: 01-08-[address] VALENTINA BECKER . Facility:[facility] Start: 12-31-2021 Adult health examination Ruba Higgins Other [facility] Other Start: 12-31-2021 End: 01-01-[address] RUBA HIGGINS Facility:[facility] Start: 12-25-2021 End: 12-26-[address] VALENTINA BECKER . Facility:[facility] Start: 12-19-2021 End: 12-20-[address] VALENTINA BECKER . Facility:[facility] Start: 11-07-2021 End: 11-08-[address] RUBA HIGGINS Facility:[facility] Start: 03-01-2017 End: 03-01-2017 [facility]ulatory [facility] Facility:[facility] Procedures Date Procedure Procedure Detail Performing Clinician Start: 11-23-2024 Myelogram Romanarminda PONCE Start: 01-05-2024 End: 01-05-2024 Ophth medical xm&eval comprhnsv estab pt 1/> Dry eyes Maura Hoyt MD Work Phone: Comment on above: Dry eyes (Primary Dx ); PCO (posterior capsular opacification), bilateral Start: 02-28-2014 right cataract extra ction with intraocular lens implantation Roman GUAN Cataract extraction and insertion of intraocular lens Roman GUAN Comment on above: left eye cervical herniated d isc removed Roman GUAN Excision of bunion Roman SEVILLA Comment on above: bilateralwillard Hysterectomy and rod ateral salpingo-oophorectomy sample (specimen) Roman GUAN Screening for malign ant neoplasm of breast Ruba Higgins Other stapidectomy 3 Roman JODI Lorna Comment on above: right ear Plan of Treatment Date Care Activity Detail Author Start: 10-14-2024 Patient referral [facility] Work Phone: Start: 09-15-2024 Patient referral [facility] Work Phone: Start: 01-11-2024 Influenza vaccination Influenza Vacc ine (#1) [facility] Start: 01-05-2024 End: 01-05-2024 Patient encounter procedure 01/05/2024 2:00 PM EDT Office Visit [facility] [address] [place] [address] Maura Hoyt MD [address] [place] [address] Arrived [facility] Comment on above: Arrived Start: 03-10-2019 Pneumococcal Vaccine : 65+ Years (2 of 2 - PPSV23 or PCV20) Pneumococcal Vaccine: 65+ Years (2 of 2 - PPSV23 or PCV20) [facility] Diagnostic radiograp hy of abdomen [facility] MG Breast - bilatera l Screening [facility] Patient Education Low back pain in adults [facility] Work Phone: Patient referral [facility] Work Phone: [facility] Immunizations Immunization Date Immunization Notes Care Provider Fa juancho 03-16-2024 influenza, high dose seasonal, preservative-free [facility] 02-14-2023 influenza virus vaccine, unspecified formulation oRman GUAN [facility] 03-12-2022 SARS-CoV-2 (COVID-19 ) [id number] Roman GUAN [facility] Comment on above: Result Comment: 2023: [id number] 02-28-2022 influenza virus vaccine, split virus (incl. purified surface antigen) Ruba Higgins Other [facility] Other 02-28-2022 influenza virus vaccine, unspecified formulation [facility] 11-09-2021 SARS-CoV-2 (COVID-19 ) mRNA-1273 vaccine Roman GUAN [facility] Comment on above: Result Comment: 2023: [id number] 03-08-2021 SARS-CoV-2 (COVID-19 ) mRNA-1273 vaccine Roman GUAN [facility] 02-27-2021 influenza virus vaccine, split virus (incl. purified surface antigen) Ruba Higgins Other [facility] Other 02-27-2021 influenza virus vaccine, unspecified formulation [facility] 06-29-2020 SARS-CoV-2 (COVID-19 ) mRNA-1273 vaccine Roman GUAN [facility] 06-01-2020 SARS-CoV-2 (COVID-19 ) mRNA-1273 vaccine Roman GUAN [facility] 03-14-2020 zoster vaccine recombinant Roman GUAN [facility] 02-16-2020 influenza virus vaccine, split virus (incl. purified surface antigen) Ruba Higgins Other [facility] [employer] Other 02-16-2020 influenza virus vaccine, unspecified formulation [facility] 10-25-2019 pneumococcal polysaccharide vaccine, 23 valent Ruba Higgins Other [facility] 01-25-2019 influenza virus vaccine, unspecified formulation Roman GUAN [facility] 03-10-2018 pneumococcal conjuga te vaccine, 13 valent Ruba Higgins Other [facility] 02-14-2018 influenza virus vaccine, unspecified formulation Roman GUAN [facility] 01-08-2017 influenza virus vaccine, split virus (incl. purified surface antigen) Ruba Higgins Other [facility] [employer] Other 01-08-2017 influenza virus vaccine, unspecified formulation [facility] 02-06-2016 influenza virus vaccine, split virus (incl. purified surface antigen) Ruba Higgins Other [facility] Other 02-06-2016 influenza virus vaccine, unspecified formulation [facility] 03-24-2015 influenza virus vaccine, split virus (incl. purified surface antigen) Ruba Gisela Other [facility] Other 03-24-2015 influenza virus vaccine, unspecified formulation [facility] 02-26-2013 tetanus and diphther ia toxoids, adsorbed, preservative free, for adult use (5 Lf of tetanus toxoid and 2 Lf of diphtheria toxoid) Ruba Higgins Other [facility] Payers Date Payer Category Payer Private Health Insurance [id number] 2024 Private Health Insurance 2022 Medicare [id number] 2017 Self-pay 1960 Medicare [id number] 1940 Unknown [id number] 2.16.84 0.1.887809.3.579.2.593 1940 Unknown [id number] 2.16.84 0.1.228687.3.579.2.593 1939 Unknown [id number] 2.16.84 0.1.081285.3.579.2.593 1939 Unknown [id number] 2.16.84 0.1.595766.3.579.2.593 1939 Unknown [id number] 2.16.84 0.1.831180.3.579.2.593 1939 Unknown [id number] 2.16.84 0.1.443516.3.579.2.593 1939 Unknown [id number] 2.16.84 0.1.969137.3.579.2.593 1939 Unknown [id number] 2.16.84 0.1.080501.3.579.2.593 1939 Unknown [id number] 2.16.84 0.1.704079.3.579.2.593 1939 Unknown [id number] 2.16.84 0.1.057486.3.579.2.593 1939 Unknown [id number] 2.16.84 0.1.508744.3.579.2.593 1939 Unknown [id number] 2.16.84 0.1.819246.3.579.2.593 1939 Unknown [id number] 2.16.84 0.1.127010.3.579.2.1259 1939 Unknown [id number] 2.16.8 40.1.133375.3.579.2.727 1939 Unknown [id number] 2.16.8 40.1.466224.3.579.2.727 1939 Unknown [id number] 2.16.8 40.1.874760.3.579.2.727 1939 Unknown [id number] 2.16.8 40.1.986961.3.579.2.727 1939 Unknown [id number] 2.16. 840.1.492604.3.579.2.196 1939 Unknown [id number] 2.16. 840.1.827040.3.579.2.196 1939 Unknown [id number] 2.16. 840.1.737065.3.579.2.196 Private Health Insurance [id number] [id number] Unknown [id number] 2.16.8 40.1.581251.3.579.2.531 Social History Date Type Detail Facility Unknown if ever smoked [facility] Other Sex Assigned At [facility] Start: 1940 Sex Assigned At Female F [facility] Start: 09-17-2023 End: 01-28-2025 Tobacco smoking status Never smoked tobacco (finding) [facility] Tobacco smoking status Never [facility] Start: 1940 Sex assigned at Not on file [facility] Work Phone: Start: 12-21-2009 End: 08-18-2024 Sex Female (finding) [facility] Sexual Orientation [facility] Functional Status Date Assessment Result Facility 10-13-2023 Functional Status N/A [facility] 09-17-2023 Functional Status N/A [facility] Clinical Notes 12-19-2021 to 01-28-2025 Note Date & Type Note Facility 01-28-2025 Hospital Discharg e instructions Patient Education 01/28/2025 10:41:33 Dietary Guidelines to Help Prevent Kidney Stones Dietary Guidelines to Help Prevent Kidney Stones Kidney stones are deposits of minerals and salts that form inside your kidneys. Your risk of developing kidney stones may be greater depending on your diet, your lifestyle, the medicines you take, and whether you have certain medical conditions. Most people can lower their risks of developing kidney stones by following these dietary guidelines. Your dietitian may give you more specific instructions depending on your overall health and the type of kidney stones you tend to develop. What are tips for following this plan? Reading food labels Choose foods with no salt added or low-salt labels. Limit your salt (sodium) intake to less than 1,500 mg a day. Choose foods with calcium for each meal and snack. Try to eat about 300 mg of calcium at each meal. Foods that contain 200 500 mg of calcium a serving include: ?8 oz (237 mL) of milk, wkzcvdi-rdfpziouzdgh-mwcal milk, and calcium-fortifiedfruit juice. Calcium-fortified means that calcium has been added to these drinks. ?8 oz (237 mL) of kefir, yogurt, and soy yogurt. ?4 oz (114 g) of tofu. ?1 oz (28 g) of cheese. ?1 cup (150 g) of dried figs. ?1 cup (91 g) of cooked broccoli. ?One 3 oz (85 g) can of sardines or mackerel. Most people need 1,000 1,500 mg of calcium a day. Talk to your dietitian about how much calcium is recommended for you. Shopping Buy plenty of fresh fruits and vegetables. Most people do not need to avoid fruits and vegetables, even if these foods contain nutrients that may contribute to kidney stones. When shopping for convenience foods, choose: ?Whole pieces of fruit. ?Pre-made salads with dressing on the side. ?Low-fat fruit and yogurt smoothies. Avoid buying frozen meals or prepared deli foods. These can be high in sodium. Look for foods with live cultures, such as yogurt and kefir. Choose high-fiber grains, such as whole-wheat breads, oat bran, and wheat cereals. Cooking Do not add salt to food when cooking. Place a salt shaker on the table and allow each person to add their own salt to taste. Use vegetable protein, such as beans, textured vegetable protein (TVP), or tofu, instead of meat in pasta, casseroles, and soups. Meal planning Eat less salt, if told by your dietitian. To do this: ?Avoid eating processed or pre-made food. ?Avoid eating fast food. Eat less animal protein, including cheese, meat, poultry, or fish, if told by your dietitian. To do this: ?Limit the number of times you have meat, poultry, fish, or cheese each week. Eat a diet free of meat at least 2 days a week. ?Eat only one serving each day of meat, poultry, fish, or seafood. ?When you prepare animal proteins, cut pieces into small portion sizes. For most meat and fish, one serving is about the size of the palm of your hand. Eat at least five servings of fresh fruits and vegetables each day. To do this: ?Keep fruits and vegetables on hand for snacks. ?Eat one piece of fruit or a handful of berries with breakfast. ?Have a salad and fruit at lunch. ?Have two kinds of vegetables at dinner. You may be told to limit foods that are high in a substance called oxalate. These include: ?Spinach (cooked), rhubarb, beets, sweet potatoes, and [place] chard. ?Peanuts. ?Potato chips, angolan fries, and baked potatoes with skin on. ?Nuts and nut products. ?Chocolate. If you regularly take a diuretic medicine, make sure to eat at least 1 or 2 servings of fruits or vegetables that are high in potassium each day. These include: ?Avocado. ?Banana. ?[place], prune, carrot, or tomato juice. ?Baked potato. ?Cabbage. ?Beans and split peas. Lifestyle Drink enough fluid to keep your urine pale yellow. This is the most important thing you can do. Spread your fluid intake throughout the day. If you drink alcohol: ?Limit how much you have to: ?0 1 drink a day for women who are not . ?0 2 drinks a day for men. ?Know how much alcohol is in your drink. In the [place] one drink equals one 12 oz bottle of beer (355 mL), one 5 oz glass of wine (148 mL), or one 1 oz glass of hard liquor (44 mL). Lose weight if told by your health care provider. Work with your dietitian to find an eating plan and weight loss strategies that work best for you. General information Talk to your health care provider and dietitian about taking daily supplements. Depending on your health and the cause of your kidney stones, you may be told: ?Do not take high-dose supplements of vitamin C (1,000 mg a day or more). ?To take a calcium supplement. ?To take a daily probiotic supplement. ?To take other supplements such as magnesium, fish oil, or vitamin B6. Take qodx-kfd-qzaunca and prescription medicines only as told by your health care provider. These include supplements. What foods should I limit? Limit your intake of the following foods, or eat them as told by your dietitian. Vegetables Spinach. Rhubarb. Beets. Canned vegetables. Pickles. Olives. Baked potatoes with skin. Grains Wheat bran. Baked goods. Salted crackers. Cereals high in sugar. Meats and other proteins Nuts. Nut butters. Large portions of meat, poultry, or fish. Salted, precooked, or cured meats, such as sausages, meat loaves, and hot dogs. Dairy Cheeses. Beverages Regular soft drinks. Regular vegetable juice. Seasonings and condiments Seasoning blends with salt. Salad dressings. Soy sauce. Ketchup. Barbecue sauce. Other foods Canned soups. Canned pasta sauce. Casseroles. Pizza. Lasagna. Frozen meals. Potato chips. Greek fries. The items listed above may not be a complete list of foods and beverages you should limit. Contact a dietitian for more information. What foods should I avoid? Talk to your dietitian about specific foods you should avoid based on the type of kidney stones you have and your overall health. Fruits Grapefruit. The item listed above may not be a complete list of foods and beverages you should avoid. Contact a dietitian for more information. Summary Kidney stones are deposits of minerals and salts that form inside your kidneys. You can lower your risk of kidney stones by making changes to your diet. The most important thing you can do is drink enough fluid. Drink enough fluid to keep your urine pale yellow. Talk to your dietitian about how much calcium you should have each day, and eat less salt and animal protein as told by your dietitian. This information is not intended to replace advice given to you by your health care provider. Make sure you discuss any questions you have with your health care provider. Document Revised: 08/08/2022 Document Reviewed: 08/08/2022 [employer] Patient Education 2023 Tasted Menu. Follow Up Care 11/29/2024 13:19:17 With:SHANNON SALGUERO, Roman Mitchell, URL Address: [address] [place], [place] [id number]- When: Unknown [facility] 01-28-2025 Note Patient Education Nephrology Dietary Guidelines to Help Prevent Kidney Stones Kidney stones are deposits of minerals and salts that form inside your kidneys. Your risk of developing kidney stones may be greater depending on your diet, your lifestyle, the medicines you take, and whether you have certain medical conditions. Most people can lower their risks of developing kidney stones by following these dietary guidelines. Your dietitian may give you more specific instructions depending on your overall health and the type of kidney stones you tend to develop. What are tips for following this plan? Reading food labels ??? Choose foods with no salt added or low-salt labels. Limit your salt (sodium) intake to less than 1,500 mg a day. ??? Choose foods with calcium for each meal and snack. Try to eat about 300 mg of calcium at each meal. Foods that contain 200?500 mg of calcium a serving include: ? 8 oz (237 mL) of milk, ncwgaan-iubllnttsolj-vznci milk, and calcium-fortifiedfruit juice. Calcium-fortified means that calcium has been added to these drinks. ? 8 oz (237 mL) of kefir, yogurt, and soy yogurt. ? 4 oz (114 g) of tofu. ? 1 oz (28 g) of cheese. ? 1 cup (150 g) of dried figs. ? 1 cup (91 g) of cooked broccoli. ? One 3 oz (85 g) can of sardines or mackerel. Most people need 1,000?1,500 mg of calcium a day. Talk to your dietitian about how much calcium is recommended for you. Shopping ??? Buy plenty of fresh fruits and vegetables. Most people do not need to avoid fruits and vegetables, even if these foods contain nutrients that may contribute to kidney stones. ??? When shopping for convenience foods, choose: ? Whole pieces of fruit. ? Pre-made salads with dressing on the side. ? Low-fat fruit and yogurt smoothies. ??? Avoid buying frozen meals or prepared deli foods. These can be high in sodium. ??? Look for foods with live cultures, such as yogurt and kefir. ??? Choose high-fiber grains, such as whole-wheat breads, oat bran, and wheat cereals. Cooking ??? Do not add salt to food when cooking. Place a salt shaker on the table and allow each person to add their own salt to taste. ??? Use vegetable protein, such as beans, textured vegetable protein (TVP), or tofu, instead of meat in pasta, casseroles, and soups. Meal planning ??? Eat less salt, if told by your dietitian. To do this: ? Avoid eating processed or pre-made food. ? Avoid eating fast food. ??? Eat less animal protein, including cheese, meat, poultry, or fish, if told by your dietitian. To do this: ? Limit the number of times you have meat, poultry, fish, or cheese each week. Eat a diet free of meat at least 2 days a week. ? Eat only one serving each day of meat, poultry, fish, or seafood. ? When you prepare animal proteins, cut pieces into small portion sizes. For most meat and fish, one serving is about the size of the palm of your hand. ??? Eat at least five servings of fresh fruits and vegetables each day. To do this: ? Keep fruits and vegetables on hand for snacks. ? Eat one piece of fruit or a handful of berries with breakfast. ? Have a salad and fruit at lunch. ? Have two kinds of vegetables at dinner. ??? You may be told to limit foods that are high in a substance called oxalate. These include: ? Spinach (cooked), rhubarb, beets, sweet potatoes, and [place]agu[place] chard. ? Peanuts. ? Potato chips, angolan fries, and baked potatoes with skin on. ? Nuts and nut products. ? Chocolate. ??? If you regularly take a diuretic medicine, make sure to eat at least 1 or 2 servings of fruits or vegetables that are high in potassium each day. These include: ? Avocado. ? Banana. ? [place], prune, carrot, or tomato juice. ? Baked potato. ? Cabbage. ? Beans and split peas. Lifestyle ??? Drink enough fluid to keep your urine pale yellow. This is the most important thing you can do. Spread your fluid intake throughout the day. ??? If you drink alcohol: ? Limit how much you have to: ? 0?1 drink a day for women who are not . ? 0?2 drinks a day for men. ? Know how much alcohol is in your drink. In the [place] one drink equals one 12 oz bottle of beer (355 mL), one 5 oz glass of wine (148 mL), or one 1? oz glass of hard liquor (44 mL). ??? Lose weight if told by your health care provider. Work with your dietitian to find an eating plan and weight loss strategies that work best for you. General information ??? Talk to your health care provider and dietitian about taking daily supplements. Depending on your health and the cause of your kidney stones, you may be told: ? Do not take high-dose supplements of vitamin C (1,000 mg a day or more). ? To take a calcium supplement. ? To take a daily probiotic supplement. ? To take other supplements such as magnesium, fish oil, or vitamin B6. ??? Take gqyx-evx-udjuljh and prescription medicines only as told by your health (more content not included)... [facility] 01-12-2025 Note Admission Informatio n DATE OF PROCEDURE/ADMISSION: 01/04/2025 PREOPERATIVE DIAGNOSES: 1. L2-S1 degenerative disc disease with discogenic back pain and leg pain 2. L2-S1 lumbar stenosis with neurogenic claudication 3. L4-5 spondylolisthesis, grade 1 4. Lumbar degenerative scoliosis POSTOPERATIVE DIAGNOSES: 1. L2-S1 degenerative disc disease with discogenic back pain and leg pain 2. L2-S1 lumbar stenosis with neurogenic claudication 3. L4-5 spondylolisthesis, grade 1 4. Lumbar degenerative scoliosis OPERATION PERFORMED: 1. L2-S1 bilateral laminectomy, partial medial facetectomies and foraminotomies of L2, L3, L4, L5 and S1 nerve roots 2. L2-S1 posterior spinal fusion. 3. L2-S1 posterior spinal instrumentation, Cortera, Xtant instrumentation 4. Use of local autograft bone and 24cc BioAdapt Bridge SURGEON: Jae Alaniz MD INDICATIONS: This is a 84-year-old female with refractory back and hip pain from lumbar stenosis and degenerative disc disease from L2-S1 along with a lumbar degenerative scoliosis. Patient had failed full conservative therapy including medication management, aquatic and land physical therapy, and multiple injections with pain management. Due to the persistence of symptoms and reduction in the ADLs, patient elected surgical treatment. Patient, therefore, understood indications for the surgery as well as its risks, benefits, and alternatives. These risks include but are not limited to paralysis, infection, hematoma, dural tear, nerve root injury, nonunion, DVT/PE, UT, stroke, etc. All questions were answered. Informed consent was obtained. DATE OF DISCHARGE: 01/07/2025 Hospital Course Patient admitted on the above date and had the above procedure performed. No complications during surgery. Patient then transferred to the PACU and to the ortho/neuro floor for post-op care. Patient hypotensive the evening of surgery. Hospitalist consulted and she was transferred to the ICU. POD#1 patient doing well with improvement of her preoperative pain. She was up and ambulating with therapy. BP improved. POD#2 patient continued to do well. POD#3 patient was ambulating well and ready for discharge. Hgb stable. Patient felt stable for discharge. The patient had a bowel movement prior to discharge. The patient was seen by Physical Therapy and found to be an ideal candidate for discharge to home. Patient was then safely discharged to home on the above date. Medications Home Fish Oil, Oral garlic Magnesium multivitamin Os-Kenan Ultra Osteo Bi-Flex Oyster Kenan 500 mg oral tablet Probiotic Formula oral capsule Vitamin B Complex oral capsule Vitamin D3 Zinc Prescriptions No active Prescriptions Physical Exam Vitals & Measurements T: 36.5 ?C (Oral) HR: 78 (Monitored) RR: 16 BP: 119/69 SpO2: 97% HT: 165 cm HT: 170 cm WT: 57 kg BMI: 19.72 BMI: 20.94 AFebrile and VSS Dressing- C/D/I 5/5 muscle strength bilateral LE Sensory intact to touch LE Additional Vitals No qualifying data available. Discharge Plan Patient to resume a regular diet. Resume home medications except for NSAIDs or blood thinners. Resume asa on POD#2 and all other blood thinners POD#5, unless instructed otherwise. Okay to resume NSAIDs 6 months after surgery. Take previously prescribed narcotic pain medications. Okay to take a shower without submerging the incision. Change dressing daily until incision is clean and dry, then leave open to air. Wear brace at all times when up and ambulating. Limit heavy lifting, bending and twisting until first postoperative visit. Follow up with Dr. Sheth 6 weeks after discharge as previously scheduled. Spinal stenosis, lumbar region Patient Discharge Condition Stable Discharge Disposition home with Electronically signed by Mark Lemus PA-C 01/20/25 10:33 EDT [facility] 01-04-2025 Note Operative Report DATE OF PROCEDURE: 01/04/2025 PREOPERATIVE DIAGNOSES: 1. L2-S1 degenerative disc disease with discogenic back pain and leg pain 2. L2-S1 lumbar stenosis with neurogenic claudication 3. L4-5 spondylolisthesis, grade 1 4. Lumbar degenerative scoliosis POSTOPERATIVE DIAGNOSES: 1. L2-S1 degenerative disc disease with discogenic back pain and leg pain 2. L2-S1 lumbar stenosis with neurogenic claudication 3. L4-5 spondylolisthesis, grade 1 4. Lumbar degenerative scoliosis OPERATION PERFORMED: 1. L2-S1 bilateral laminectomy, partial medial facetectomies and foraminotomies of L2, L3, L4, L5 and S1 nerve roots 2. L2-S1 posterior spinal fusion. 3. L2-S1 posterior spinal instrumentation, Cortera, Xtant instrumentation 4. Use of local autograft bone and 24cc BioAdapt Bridge SURGEON: Jae Alaniz MD JALOUSIE INSTALLER: HARRY Wellington PA-C assisted throughout the procedure with positioning, draping, retraction, wound closure and dressing application. ANESTHESIA: General. INDICATIONS: This is a 84-year-old female with refractory back and hip pain from lumbar stenosis and degenerative disc disease from L2-S1 along with a lumbar degenerative scoliosis. Patient had failed full conservative therapy including medication management, aquatic and land physical therapy, and multiple injections with pain management. Due to the persistence of symptoms and reduction in the ADLs, patient elected surgical treatment. Patient, therefore, understood indications for the surgery as well as its risks, benefits, and alternatives. These risks include but are not limited to paralysis, infection, hematoma, dural tear, nerve root injury, nonunion, DVT/PE, UT, stroke, etc. All questions were answered. Informed consent was obtained. OPERATIVE PROCEDURE: The patient was taken to the operating room by the Anesthesiology Service and had satisfactory general anesthesia. A first-generation cephalosporin was given within 1 hour of surgical incision. 2 gm of cefazolin was given IV. Venous thromboembolic prophylaxis was performed with sequential devices. A valencia was placed using standard sterile technique. The patient was then positioned prone on a standard OSI frame with the abdomen hanging free and all bony prominences well padded. The low back was then prepped and draped in its entirety in the usual sterile fashion. Before incision, a formal time-out was taken per protocol. We next took a midline longitudinal approach and performed subperiosteal dissection out to the tips of the transverse processes of L2, L3, L4, L5 and S1. Intraoperative radiographic localization of level was confirmed. We then began the laminectomy as well as decompression by removal of the spinous process of L2, L3, L4 and L5. We entered the spinal canal, resecting the ligamentum flavum in its entirety over this region. Partial medial facetectomy was then performed with an osteotome to get lateral to the facet overhang, but just medial to the pedicles and nerve roots. Kerrison's were then used to perform foraminotomies of the L2, L3, L4, L5 and S1 nerve roots bilaterally. In this way, we completed decompression at L2-3, L3-4, L4-5 and L2, L3, L5-S1 with foraminotomies of the L2, L3, L4, L5 and S1 nerve roots bilaterally. Satisfied with this, we then turned our attention to perform spinal instrumentation and posterolateral fusion. Using anatomic landmarks and guided by direct visualization of the pedicles from within the canal, pedicle screws were placed bilaterally at L2, L3, L4, L5 and S1. All the screws were completely interosseous as determined by bony palpation except for the tip of the S1 screw which remained bicortical by design. Before the screws were inserted, the transverse processes were decorticated with a high-speed bur at L2, L3, L4, L5 and S1. Local autograft bone was then placed over the decorticated elements bilaterally. 24cc BioAdapt Bridge was placed on top of this for extra bulk. The screws were then inserted which were under tapped by 1 mm. Two rods were placed from L2-S1, set screws engaged and tightened down to their final torque. One Crosslink was used. Everything was tightened down. A very rigid construct was achieved. Final x-ray was taken, demonstrated good position of the spine and all of the implants. Satisfied with this, we then achieved hemostasis. We then copiously irrigated the wound. We then inserted 2 Hemovac drains through a separate stab incision. The wound was then closed in layer with interrupted 1 and 2-0 Vicryl sutures and dusted with 2 g vancomycin powder. A 3-0 Monocryl was used for the skin. The skin edges were sealed with Dermabond. A dry sterile dressing was applied. The patient was then returned to the hospital bed, extubated, and taken to the recovery room in stable condition. Spinal cord monitoring remained stable throughout the operation. COMPLICATIONS: None. SPECIMENS: None. ESTIMATED BLOOD LOSS: 800 mL. POSTOPERATIVE CARE: The patient (more content not included)... [facility] 01-03-2025 Note Chief Complaint Back pain History of Present Illness The patient is a 84-year-old female with complaints of low back pain that radiates into the hips. She denies radicular symptoms or numbness tingling. Symptoms have been present on a chronic basis but really worsening over the last 6-8 months. Current VAS score 5 out of 10. Activities that aggravate the pain include sitting, standing, leaning forward, bending forward, rising from sitting. Activities to help relieve the pain include bending forward and changing positions. Modifying factors include diclofenac, tramadol, aqua and land physical therapy, multiple injections with pain management, acupuncture and massage. No previous lumbar surgeries. She has had a prior neck surgery 1984. Non-smoker. PCP: Ruba Higgins MD Review of Systems Constitutional: No fevers, chills Respiratory: No shortness of breath, cough Cardiovascular: No chest pain, palpitations Gastrointestinal: No nausea, vomiting, incontinence Genitourinary: No dysuria or incontinence Musculoskeletal: (+) back pain, hip pain Neurologic: No numbness/tingling, h/a Psychiatric: No anxiety, depression Physical Exam Vital Signs: Ht: 5'5 , Wt: 125 lbs, BMI: 20.8. General: Alert and oriented, well nourished, no acute distress. Head: Atraumatic, normocephalic Lungs: No respiratory distress. CTA bilaterally, no wheezes Heart: RRR, no murmur Abdomen: Soft, non-tender, non-distended, normal bowel sounds Musculoskeletal: Limited lumbar ROM. TTP lumbar spine. 5/5 muscle strength bilateral lower extremities Skin: well-healed lumbar incision Neurologic: Awake, alert, and oriented X3, sensory intact lower extremities Psychiatric: Cooperative, appropriate mood and affect Additional Vitals No qualifying data available. Assessment/Plan 1. Low back pain 2. Lumbar degenerative scoliosis 3. L2-S1 degenerative disc disease with stenosis and neurogenic claudication 4. L4-5 spondylolisthesis, grade 1. Plan; L2-S1 decompression and fusion with L5-S1 transforaminal lumbar interbody fusion Problem List/Past Medical History Ongoing Abnormal EKG History of kidney stones Low back pain Tremor Historical No qualifying data Procedure/Surgical History Right stapedectomy Ureterorenoscopy with fragmentation and removal of kidney stone Hysterectomy Bunionectomy Medications Inpatient No active inpatient medications Home atenolol 50 mg oral tablet, 50 mg= 1 tabs, Oral, qAM diclofenac, 50 mg, Oral, Daily, PRN Fish Oil, Oral garlic Magnesium multivitamin Os-Kenan Ultra Osteo Bi-Flex Oyster Kenan 500 mg oral tablet Probiotic Formula oral capsule traMADol, Oral, PRN Vitamin B Complex oral capsule Vitamin D3 Zinc Allergies No Known Allergies No Known Medication Allergies Social History Alcohol Current, 1-2 times per year Employment/School Retired Exercise Exercise frequency: 1-2 times/week. Exercise type: Walking, Bicycling, Stepper, Treadmill. Home/Environment Lives with Spouse. Living situation: Residential home. Nutrition/Health Regular Substance Denies All Tobacco Never (less than 100 in lifetime) Use:. Lab Results Microbiology - Current Encounter No qualifying data available. Diagnostic Results CT Myelogram Lumbar Spine CT myelogram:Degenerative scoliosis, age-related changes of the spine, curvature, impingement on nerves, L2-S1 severe stenosis, L3-5 spondylolisthesis. Electronically signed by Mark Lemus PA-C 01/03/25 16:00 EDT Electronically signed by Jae Alaniz MD 01/04/2025 11:13 EDT [facility] 10-14-2024 Evaluation note Diagnosis Onset Date Resolution Lumbar back pain acute October 9:56am Skin tear of right lower leg without complication acute October 14, 2024 9 :56am Abnormal finding on EKG acute A ugust 2024 2:17pm [facility] Work Phone: 1(833) 644-179904-09-2025 Evaluation note* Diagnosis Onset Date Resolution Status Admit Date Seasonal allergic rhinitis acute August 18, 2024 11:44am [facility] Work Phone: 1(120) 630-215804-09-2025 Evaluation note* Diagnosis Onset Date Resolution Status Admit Date Seasonal allergic rhinitis acute August 18, 2024 11:44am Lumbar back pain acute September 15, 2024 8:13am Lumbar back pain acute October 9:56am [facility] Work Phone: 1(572) 829-819808-26-2024 History of Present illness Narrative* Maura Hoyt MD - 01/05/2024 2:00 PM EDT Assessment/Plan Dry Eyes OU -- Environmental changes to minimize dryness and exposure and the use of artificial tears were recommended. documented in this encounterChristian [id number] Hospital Discharge instructions Patient Education 10/13/2023 13:39:08 Kidney Stones, Vlmm-fc-Amvd Kidney Stones Kidney stones are rock-like masses [...] Follow these instructions at home: Medicines Take vqbr-qrm-vipmwxe and prescription medicines only as told by [...] provider. Document Revised: 12/31/2021 Document Reviewed: 12/31/2021 [employer] Patient Education 2022 Tasted Menu. Follow Up Care 09/17/2023 08:40:02 With:SHANNON SALGUERO, Roman Mitchell, URL Address: [facility] [address] [place] [phone] When: Unknown [facility] 05-08-2024 Hospital Discharge instructions Patient Education 09/17/2023 [...] Follow these instructions at home: Medicines Take pyke-dyp-tvtielq and prescription medicines only as told by [...] provider. Document Revised: 08/07/2022 Document Reviewed: 08/07/2022 [employer] Patient Education 2022 Tasted Menu. Follow Up Care 09/11/2023 08:49:49 With:SHANNON SALGUERO, Roman Mitchell, MIRYAML Address: [facility] [address], [place] [phone]- When: Unknown [facility] 09-22-2023 Evaluation note* Encounter Date Diagnosis Assessment Notes Treatment Notes Treatment Clinical Notes Jan, Seasonal allergic rhinitis, unspecified trigger (ICD-10 - J30.2) [facility] Other 09-01-2023 Evaluation note* Encounter Date Diagnosis Assessment Notes Treatment Notes Treatment Clinical Notes Jan, Piriformis syndrome of left side (ICD-10 - G57.02) Unable to add more tramadol - likely has pain clinic w [facility]. PT order printed. Add steroids. Also gave copies of home exercises. [facility] Other 06-19-2023 Evaluation note* Encounter Date Diagnosis [...] - order handwritten and given to pt [facility] 04-27-2023 NoteCONSULTATION CONSULTATION DATE: 09/05/2022 TO: Ruba Higgins M.D. HISTORY: Patient is seen today, [...] our patients to inform us about any rmvm-yvs-zqjouma medications or herbal remedies/nutritional supplements/alternative remedies. 2. [...] treatment options with their primary care provider.[id number] Note CONSULTATION PROCEDURE DATE: 12/25/2021 PREOPERATIVE DIAGNOSIS: [...] procedurally range of motion exercises are performed.[facility] 12-19-2021 NoteCONSULTATION CONSULTATION DATE: 12/19/2021 [...] where she was seen by the physician inside sales assistant in the office and received [...] care, [facility] Future Appointments Appointment Date:10/13/2023 12:15:00 PM Scheduled Provider:Roman GUAN MD Location:[facility] Appointment Type:URO Office Visit [facility] Imani Evaluation + Plan note Future Appointments Appointment Date:01/28/2025 10:15:00 AM Scheduled Provider:Roman GUAN MD Location:[facility] Appointment Type:URO Office Visit [facility] evaluation noteNo InformationNort Sokolin Other Evaluation noteNo assessment information available [facility] Work Phone: Evaluation note* Diagnosis Onset Date Resolution Status Right lumbar pain acute [facility] Work Phone: Evaluation note* Diagnosis Onset Date Resolution Status Right lumbar pain acute Medicare annual wellness visit, subsequent acute Nephrolithiasis acute Screening mammogram for breast cancer acute [facility] Work Phone: Evaluation note* Diagnosis Onset Date Resolution Status Right lumbar pain acute Medicare annual wellness visit, subsequent acute Nephrolithiasis acute Screening mammogram for breast cancer acute Laceration of left lower leg without complication acute Lumbar back pain acute [facility] Work Phone: Evaluation note* Diagnosis Dry eyes- Primary 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), bilateral Unspecified after-cataract documented in this encounter [facility] - Reported* Type Description Date Medical History migraine headache Medical History dizziness Medical History tremors Surgical History hysterectomy Surgical History bunionectomy Surgical History stapedectomy Hospitalization History see above [facility] Other Hospital course Narrative No data available for this section [facility] Hospital Discharge instructionsAmbulatory Orders* Referral to PT / OT / Speech (PT/OT/SP) Location: None [facility] Work Phone: Hospital Discharge instructionsAmbulatory Orders* Referral to Orthopedic Surgery Location: None [facility] Work Phone: Hospital Discharge instructions No data available for this section [facility] progress note No data available for this section [facility] Reason for referral (narrative)No reason for referral information availableC[facility] Work Phone: Summary Purpose Family History No [...] 11:4 4am fu after PT-doing pt in [place] September 15, 2024 8:13am Reason for Visit Admit Date Seasonal allergic rhinitis August 18 11:44am Chief Complaint Admit Date Allergy Shot August 18, 2024 11:4 4am fu after PT-doing pt in [place] September 15, 2024 8:13am back pain October 14, 2024 9:56a m Reason for Visit Admit Date Seasonal allergic rhinitis August 18 11:44am Lumbar back pain September 15, 2024 8:13am Lumbar back pain October 14, 2024 9:56a m Chief Complaint Admit Date back pain October 14, 2024 9:56a m Surgical Clearance (Dr. oLzano) December 28, 2024 2:17pm Reason for Visit Admit Date Lumbar back pain October 14, 2024 9:56a m Skin tear of right lower leg without com plication October 14, 2024 9:56am Abnormal finding on EKG December 28 2:17pm Additional Source Comments INFORMATION SOURCE (unrecogn ized section and content) DATE CREATED AUTHOR 10/18/2022 [facility] DATE CREATED AUTHOR AUTHOR'S ORGANIZ ATION 01/06/2024 [facility] EPIC DATE CREATED AUTHOR AUTHOR'S ORGANIZ ATION 09/19/2024 [facility] DATE CREATED AUTHOR AUTHOR'S ORGANIZ ATION 01/31/2025 [facility] DATE CREATED AUTHOR AUTHOR'S ORGANIZ ATION 02/02/2025 [facility] REASON FOR VISIT (unrecogniz ed section and content) Reason Comments [facility] Teams (unrecognized sec tion and content) Team Status: Active Member Role Status Henrietta Higgins MD Primary Care Provider Active Team Status: Inactive Member Role Status Henrietta [...] March 16, 2024 End: March 16, 2024 Planning Management It Specialist Relationship Specialty Start Date End Date Valeriy Higgins MD [address] [place] [phone] PCP - General 12/25/22 Planning Management It Specialist Relationship Specialty Start Date End Date Valeriy Higgins MD [address] [place] [phone] PCP - General 12/25/22 Team Status: Inactive Member Role Status Henrietta Higgins MD Primary Care Provide r, Attending Provider Active Start: August 18, 2024 End: August 18, 2024 Team Status: Inactive Member Role Status Henrietta Higgins , MD Primary Care Provider Active Start: September 15, 2024 End: September 15, 2024 Gerardo Vanegas DO Attending Provider Active S tart: September 15, 2024 End: September 15, 2024 Team Status: Inactive Member Role Status Dates Ruba Higgins MD Primary Care Provide r, Attending Provider Active Start: October 14, 2024 End: October 14, 2024 Team Status: Inactive Member Role Status Dates Ruba Higgins MD Primary Care Provider Active Start: October 14, 2024 End: October 14, 2024 Ruba Higgins MD Attending Provider Active St art: October 14, 2024 End: October 14, 2024 Team Status: Active Member Role Status Dates Ruba Higgins MD Primary Care Provider Active Start: December 28, 2024 Jae Fuentes MD Attending Provider Active Start: December 28, 2024 Team Status: Inactive Member Role Status Dates Ruba Higgins MD Primary Care Provider Active Start: December 28, 2024 End: December 28, 2024 Ruba Higgins MD Attending Provider Active St art: [...] BE BASED ON THE PRIMARY CLINICAL RECORDS. [facility]. provides no warranty or guarantee of the accuracy or completeness of information in this document.
== END 2025-02-03 09:07 | disposition home or self-care (01) ==
LOC: US 09:06
PROVIDERS: PCP Family Medicine; Visit Provider Urology
DX: N20.0 Calculus of kidney (principal)
CPT/HCPCS: 76775

== ENCOUNTER 2025-02-15 09:12 | Outpatient (OUT) | payer MEDICARE, SELFPAY ==
--- OUTSIDE RECORDS SUMMARY | 2025-02-10 13:30 | XMS_ITS | Encounter Summary ---
Author Organization [facility] Address [address] [place] [address] Care Team Providers Care Senior Research Project Manager Name Role Phone Valeriy Guajardo MD Primary Care Provider [phone] Reason for Visit * Reason Comments Eye Exam Dry Eye Encounter Details Date Type Department Care Team (Late st Contact Info) Description 02/10/2025 1:30 PM EDT Office Visit [facility] [address] [place] [phone] Maura Hoyt MD [address] [place] [address] Dry eyes (Primary Dx); PCO (posterior capsular opacification), bilateral Social History Tobacco Use Types Packs/Day Years Used Date Smoking Tobacco: Never Comments Unknown Sex and Gender Information Value Date Recorded Sex Assigned at Not on file Legal Sex Female 8:32 PM EDT Gender Identity Not on file Sexual Orientation Not on file documented as of this encounter Progress Notes * Maura Hoyt MD - 02/10/2025 1:30 PM EDT No Known Allergies Past Medical History: Diagnosis Date Cataract Dry eyes Assessment/Plan PCO OU: (Posterior Capsule Opacification) Can be observed without intervention if PCO is not visually significant. Nd:YAG laser capsulotomy may be considered if impairment of vision rises to a level that dose not meet the patient's functional needs or interferes with activities of daily living. Risks, benefits and alternatives to the procedure will be reviewed. If the patient has undergone Nd:YAG laser capsulotomy, they are to notify their harvest contractor promptly if they have asignificant change in symptoms, such as flashes of light (photopsia), an increase in floaters, lossof visual field or decrease in visual acuity. Dry Eyes OU -- Environmental changes to minimize dryness and exposure and the use of artificial tears were recommended. 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
--- NOTE | 2025-02-15 09:14 | CT_ITS ---
The [address] [address] Patient Name: EDUARDO LEA MRN: [id number] date: 1940 Sex: F Assigned Patient Location: CT Current Patient Location: CT Accession/Order Number: [id number] Exam Date: 02/15/2025 09:15 Report Date: 02/15/2025 10:18 At the request of: STAN ORTEGA MD Procedure: CT abdomen pelvis wo con CT ABDOMEN AND PELVIS WITHOUT CONTRAST COMPARISON: 10/15/2023 CLINICAL DATA: Left flank and low back pain for the past couple months. History of kidney stones. Spiral axial unenhanced images were obtained through the abdomen and pelvis. This CT exam was performed using one or more following dose reduction techniques: Automated exposure control, adjustment of the mA and/or kV according to patient size, or use of iterative reconstruction technique. Limited cuts through the lung bases show minimal linear scarring or atelectasis. A tiny subpleural nodular densities in seen at the right posterior costophrenic angle. Evaluation of the intra-abdominal organs is slightly limited by the absence of contrast. There are calcified stones at the gallbladder neck. Calcifications are again visualized within the right hepatic lobe. The spleen, pancreas and glands show no acute findings. There are left renal hypodensity which may be cysts. There are also a couple subtle tiny nodular cortical hyperdensity is that might be hemorrhagic cysts. No renal stones or hydronephrosis are identified. There is no ureteral dilatation or calculi. There is mild atherosclerotic plaque at the aorta and iliac arteries. No enlarged lymph nodes or ascites are noted. There is a tiny umbilical hernia containing fat. The small bowel loops are normal caliber. There is fluid within the stomach. There is stool along the colon which has intermixed hyperdense foci. There is thoracolumbar levoscoliotic curvature as well as new multilevel laminectomy and fusion. There is streak artifact from the hardware. Images through the pelvis show normal caliber small bowel loops. The appendix is not obvious. There is stool at the cecum. There is a small amount of stool at the distal colon. There are some descending and sigmoid diverticula. No active inflammation is seen. The uterus appears to be surgically absent. The urinary bladder is not well-distended however no obvious CT abnormalities are noted. There is no ascites. CT/CT abdomen pelvis wo con IMPRESSION: CHOLELITHIASIS. NO OBSTRUCTIVE UROPATHY OR STONE DISEASE. POSSIBLE SIMPLE AND HEMORRHAGIC LEFT RENAL CYSTS. MINOR DIVERTICULOSIS. SCOLIOSIS AND POSTOPERATIVE CHANGES AT THE SPINE. Impression dictated by: Risa Mcdermott M.D. 02/15/2025 10:18 AM Dictation Location: [place] [address] Electronically authenticated by: [id number] Date: 02/15/2025 10:18
--- OUTSIDE RECORDS SUMMARY | 2025-02-15 09:14 | XMS_ITS | Encounter Summary ---
Author Organization [facility] Address [address] [place] [address] Care Team Providers Care Legal Executive Assistant Name Role Phone Valeriy Guajardo MD Primary Care Provider [phone] Encounter Details Date Type Department Care Team (Late st Contact Info) Description 02/10/2025 Bamboo flowsheet [facility] [address] [place] [phone] Maura Hoyt MD [address] [place] [address] Social History Tobacco Use Types Packs/Day Years Used Date Smoking Tobacco: Never Comments Unknown Sex and Gender Information Value Date Recorded Sex Assigned at Not on file Legal Sex Female 8:32 PM EDT Gender Identity Not on file Sexual Orientation Not on file documented as of this encounter Plan of Treatment Not on file documented as of this encounter Visit Diagnoses Not on filedocumented in this encounter Care Teams Legal Executive Assistant Relationship Specialty Start Date End Date Valeriy Guajarod MD [address] [place] [address] [address] [place] [address] PCP - General 12/25/22 documented as of this encounter
--- OUTSIDE RECORDS SUMMARY | 2025-02-15 09:14 | XMS_ITS | Encounter Summary ---
Author Organization [facility] Address [address] [place] [address] Care Team Providers Care Laser Engraver Name Role Phone Valeriy Guajardo MD Primary Care Provider [phone] Encounter Details Date Type Department Care Team (Latest Contact Info) Description 02/10/2025 Travel Social History Tobacco Use Types Packs/Day Years [...] on filedocumented in this encounter Care Teams Laser Engraver Relationship Specialty Start Date End Date Valeriy Guajardo MD [address] [place] [address], [address] [place] [address] PCP - General 12/25/22 documented as of this encounter
--- OUTSIDE RECORDS SUMMARY | 2025-02-15 09:14 | XMS_ITS | Clinical Summary ---
Author Organization [facility] Address [address] [place] [address] Care Team Providers Care Cheesemaker Name Role Phone Valeriy Guajardo MD Primary Care Provider [phone] Allergies No known active allergies Medications traMADol (Ultram) 50 MG tablet Take 50 mg by mouth 2 (two) times a day as needed. Active baclofen (Lioresal) 10 MG tablet TAKE 1/4 TABLET BY MOUTH IN THE MORNING, 1/4 TABLET IN THE EVENING, AND 1/2 - 1 TABLET AT BEDTIME 12/06/2022 Active diclofenac (Voltaren) 50 MG EC tablet Take 50 mg by mouth in the morning and 50 mg before bedtime. Active atenolol (Tenormin) 50 MG tablet Take 50 mg by mouth in the morning. 09/28/2022 Active Encounters Date Type Department Care Team Description 02/10/2025 1:30 PM EDT Office Visit [facility] [address] [place] [phone] Maura Hoyt MD Dry eyes (Primary Dx); PCO (posterior capsular opacification), bilateral 02/10/2025 Bamboo flowsheet [facility] [address] [place] [phone] Maura Hoyt MD 02/10/2025 Travel from Last 3 Months Social History Tobacco Use Types Packs/Day Years Used Date Smoking Tobacco: Never Tobacco Cessation:Counseling Given: Not Answered Comments Unknown Sex and Gender Information Value Date Recorded Sex Assigned at Not on file Legal Sex Female 8:32 PM EDT Gender Identity Not on file Sexual Orientation Not on file Last Filed Vital Signs Vital Sign Reading Time Taken Comments Blood Pressure - - Pulse - - Temperature - - Respiratory Rate - - Oxygen Saturation - - Inhaled Oxygen Concentration - - Weight 63.5 kg (140 lb) 03/22/2022 12:00 PM EST Height 165.1 cm (5' 5 ) 03/22/2022 12:00 PM EST Body Mass Index 23.3 03/22/2022 12:00 PM EST Plan of Treatment Health Maintenance Due Date Last Done Comments Pneumococcal Vaccine: 65+ Ye ars (2 of 2 - PPSV23) 03/10/2019 03/10/2018 Influenza Vaccine (#1) 2025 4, 02/14/2023, 02/28/2022, Additional history exists Insurance [employer] Care Teams Cheesemaker Relationship Specialty Start Date End Date Valeriy Guajardo MD [address] [place] [address], [address] [place] [address] PCP - General 12/25/22
--- OUTSIDE RECORDS SUMMARY | 2025-02-15 09:15 | XMS_ITS | Patient Health Record ---
Author Organization [facility] Address [address] [place] [address] Care Team Providers Care Area Coordinator Name Role Phone Savanna Guajardo M.D. Primary Care Provider Unavail able Jae Alaniz Unavailable [phone] [employer] mahajan Unavailable [phone] Allergies No Known Allergies Results Component Value Reference Range Notes Lactic Acid, Random Reviewed date:01/05/2025 01:26:10 PM Interpretation: Performing Lab: Notes/Report: [address] [address] Lactic Acid Lvl 1.9 0.5-2.0 mmol/L POC Glucose Random Reviewed date:01/05/2025 01:26:10 PM Interpretation: Performing Lab: Notes/Report: [address] [address] POC Gluc Random 120 70-99 mg/dL Hgb Reviewed date:01/05/2025 01:26:15 PM Interpretation: Performing Lab: Notes/Report: [address] [address] Hgb 9.7 12.0-16.0 g/dL Hct 28.6 36.0-46.0 % Hep Func Panel Reviewed date:01/05/2025 01:26:10 PM Interpretation: Performing Lab: Notes/Report: [address] [address] Bili Total 0.9 0.3-1.0 mg/dL Bili Direct [...] date:01/05/2025 01:26:10 PM Interpretation: Performing Lab: Notes/Report: [facility] (UNKNOWN) [address] [place] [address] ABSC Auto Antibody Screen: Negative ABSC ABO/Rh Reviewed date:01/05/2025 01:26:10 PM Interpretation: Performing Lab: Notes/Report: [facility] ([facility]) [address] [place] [address] ABO/Rh ABO/Rh: A POS Surgery Scheduling (Not yet reviewed by provider) Interpretation: Performing Lab: Notes/Report: Primary Insurance Company: MEDICARE AETNA Surgeon/Assist: ST SCHAFER/PB OR MARK Surgery Location: [facility] Surgery Date & Time: 01/04/25 @ 12:30PM Hosp arrival time day of: 10:30AM Surgery End Time: 3:30PM Procedure: L2-S1 DECOMPRESSION AND FUSION, L5-S1 TLIF Special Equipment: SSEP, CELL SAVER, PRONE, BHARATH TABLE, SURGALIGN Diagnosis: M48.062 STENOSIS Admission Type: OUTPATIENT Anesthesia Type/CPNB: GENERAL Post-op Appointment Date: 02/17/25 @ 10:10AM ANDREW Lab Location: Lab Date/Time: LARISA Education Professional: CASSIDY Sanchez Physician: GISELA Sanchez Appt Date/T @ 2:30PM History & Physical Appointment Date/: 12/31/24 @ 9:50AM [facility] CBC w/ Diff Reviewed date:01/05/2025 09:17:13 AM Interpretation: Performing Lab: Notes/Report: [facility] [address] [place] [address] WBC 8.7 4.5-11.0 x10*3/mcL RBC 3.05 3.80-5.20 x10*6/mcL Hgb 9.9 12.0-16.0 g/dL Hct 29.0 36.0-46.0 % MCV 95.0 80.0-100.0 fL MCH 32.3 27.0-35.0 pg MCHC 34.0 31.0-37.0 % Platelet 149 150-450 x10*3/mcL RDW 13.1 11.6-14.8 % Mean Platelet Volume 8.3 6.7-10.6 fL Diff Auto Reviewed date:01/05/2025 09:17:13 AM Interpretation: Performing Lab: Notes/Report: [address] [address] Neutro Auto 78.9 47.2-70.8 % Lymph Auto 10.6 27.2-40.8 % Latimer Auto 10.2 3.7-11.9 % Eos Auto 0.1 0.0-5.4 % Basophil Auto 0.2 0.0-1.5 % Neutro Absolute 6.9 1.8-7.7 x10*3/mcL Lymph Absolute 0.9 1.0-4.8 x10*3/mcL Latimer Absolute 0.9 0.1-1.1 x10*3/mcL Eos Absolute 0.0 0.0-0.4 x10*3/mcL Baso Absolute 0.0 0.0-0.2 x10*3/mcL Magnesium Reviewed date:01/05/2025 01:26:10 PM Interpretation: Performing Lab: Notes/Report: [address] [address] Magnesium Lvl 1.8 1.7-2.4 mg/dL Hemoglobin Reviewed date:01/05/2025 01:26:10 PM Interpretation: Performing Lab: Notes/Report: [address] [address] Hgb 8.9 12.0-16.0 g/dL HSTI Random Reviewed date:01/05/2025 01:26:10 PM Interpretation: Performing Lab: Notes/Report: [address] [address] hs Troponin I 504 0-15 ng/L Critical Result Notification Result called to and read back by: Tyron Wise RN 6NU Called date and time: 01/05/2025 05:10:49 EDT (First, Last, Title, Location) Basic Metabolic Profile Reviewed date:01/05/2025 09:17:13 AM Interpretation: Performing Lab: Notes/Report: [address] [address] Sodium Lvl 135 136-145 mmol/L Potassium Lvl 4.5 3.4-4.8 mmol/L Chloride 103 98-107 mmol/L CO2 24 21-31 mmol/L Anion Gap 8 4-12 mmol/L Glucose Lvl 146 70-99 mg/dL BUN 16 7-25 mg/dL Creatinine Lvl 0.94 0.60-1.20 mg/dL BUN Crea Ratio 17.0 15.0-25.0 ratio Calcium Lvl 7.9 8.6-10.3 mg/dL .eGFR Reviewed date:01/05/2025 09:17:13 AM Interpretation: Performing Lab: Notes/Report: Order added by Discern rule [address] [address] Estimated GFR 59 >=60 mL/min/1.73m? ? = [...] indicates the minimum of SCr/? or 1 [facility] Laboratories have implemented the eGFR calculation approach that does not have a coefficient for race and that conforms to the NKF-ASN Task Force Recommendations. HSTI Random Reviewed date:01/05/2025 01:26:15 PM Interpretation: Performing Lab: Notes/Report: [place] [id number] hs Troponin I 561 0-15 ng/L Result called to and read back by: Doretha Arana [employer] Critical Result Notification (First, Last, Title, Location) Called date and time: 01/05/2025 06:45:33 EDT C Bld Reviewed date:01/20/2025 11:15:22 AM Interpretation: Performing Lab: Notes/Report: [place] [id number] Note [facility] Patient Name: Eduardo Lea : 1940 [address] See Below For Report No growth at 5 days. Final Basic Metabolic Profile Reviewed date:01/06/2025 10:56:01 AM Interpretation: Performing Lab: Notes/Report: [place] [id number] Sodium Lvl 139 136-145 mmol/L Potassium Lvl 3.8 3.4-4.8 mmol/L Chloride 106 98-107 mmol/L CO2 27 21-31 mmol/L Anion Gap 6 4-12 mmol/L Glucose Lvl 96 70-99 mg/dL BUN 10 7-25 mg/dL Creatinine Lvl 0.68 0.60-1.20 mg/dL BUN Crea Ratio 14.7 15.0-25.0 ratio Calcium Lvl 7.8 8.6-10.3 mg/dL .eGFR Reviewed date:01/06/2025 10:56:01 AM Interpretation: Performing Lab: Notes/Report: [place] [id number] Estimated GFR >60 >=60 mL/min/1.73m? Stage 5 [...] indicates the minimum of SCr/? or 1 [facility] Laboratories have implemented the eGFR calculation approach [...] 1 Stages of Chronic Kidney Disease GFR C Bld Reviewed date:01/20/2025 11:15:22 AM Interpretation: Performing Lab: Notes/Report: [facility] (DEFAULT) [address] [place] [address] Note [facility] Patient Name: Eduardo Lea : 1940 C [facility] WAS ABLE TO OBTAIN 1 SET OF B/C 01/05/2025 04:34:28 EDT Domo ORGANISM ORGANISM ID: 1 Final Gram Stain [...] Cocci seen on gram stain. Strsal C Torie . ORGANISM ORGANISM ID: 1 Final Gram [...] Results called to Candida Levine RN at [facility] by EDEN on 01/06/2025 01:45:34 ORGANISM ORGANISM ID: 1 [...] on gram stain. Strsal Diff Auto Reviewed date:01/07/2025 08:46:00 AM Interpretation: Performing Lab: Notes/Report: [facility] [address] [place] [address] Neutro Auto 67.5 47.2-70.8 % Lymph Auto 15.3 27.2-40.8 % Latimer Auto 14.9 3.7-11.9 % Eos Auto 1.9 0.0-5.4 % Basophil Auto 0.4 0.0-1.5 % Neutro Absolute 4.7 1.8-7.7 x10*3/mcL Lymph Absolute 1.1 1.0-4.8 x10*3/mcL Latimer Absolute 1.0 0.1-1.1 x10*3/mcL Eos Absolute 0.1 0.0-0.4 x10*3/mcL Baso Absolute 0.0 0.0-0.2 x10*3/mcL Diff Auto Reviewed date:01/06/2025 10:56:01 AM Interpretation: Performing Lab: Notes/Report: [address] [address] Neutro Auto 71.3 47.2-70.8 % Lymph Auto 14.5 27.2-40.8 % Latimer Auto 13.4 3.7-11.9 % Eos Auto 0.6 0.0-5.4 % Basophil Auto 0.2 0.0-1.5 % Neutro Absolute 5.9 1.8-7.7 x10*3/mcL Lymph Absolute 1.2 1.0-4.8 x10*3/mcL Latimer Absolute 1.1 0.1-1.1 x10*3/mcL Eos Absolute 0.1 0.0-0.4 x10*3/mcL Baso Absolute 0.0 0.0-0.2 x10*3/mcL Basic Metabolic Profile Reviewed date:01/07/2025 08:46:00 AM Interpretation: Performing Lab: Notes/Report: [address] [address] Sodium Lvl 139 136-145 mmol/L Potassium Lvl 3.7 3.4-4.8 mmol/L Chloride 105 98-107 mmol/L CO2 30 21-31 mmol/L Anion Gap 4 4-12 mmol/L Glucose Lvl 95 70-99 mg/dL BUN 6 7-25 mg/dL Creatinine Lvl 0.65 0.60-1.20 mg/dL BUN Crea Ratio 9.2 15.0-25.0 ratio Calcium Lvl 8.0 8.6-10.3 mg/dL .eGFR Reviewed date:01/07/2025 08:46:00 AM Interpretation: Performing Lab: Notes/Report: [address] [address] Estimated GFR >60 >=60 mL/min/1.73m? eGFR (estimated glomerular filtration rate) = mL/min/1.73 m2 ? = -0.241 (females) or -0.302 (males) Stage 5 Kidney failure < 15 Stage 1 Normal to mild loss of kidney function ? 90 max = indicates the maximum of SCr/? or 1 GFR calculated using the CKD-Epi Creatinine Equation (2020): [facility] Laboratories have implemented the eGFR calculation approach [...] date:01/07/2025 08:46:00 AM Interpretation: Performing Lab: Notes/Report: [address] [address] WBC 7.0 4.5-11.0 x10*3/mcL RBC 2.42 3.80-5.20 x10*6/mcL Hgb 7.8 12.0-16.0 g/dL Hct 22.6 36.0-46.0 % MCV 93.4 80.0-100.0 fL MCH 32.2 27.0-35.0 pg MCHC 34.5 31.0-37.0 % Platelet 144 150-450 x10*3/mcL RDW 13.0 11.6-14.8 % Mean Platelet Volume 8.1 6.7-10.6 fL CBC w/ Diff Reviewed date:01/06/2025 10:56:01 AM Interpretation: Performing Lab: Notes/Report: [facility] [address] [place] [address] WBC 8.3 4.5-11.0 x10*3/mcL RBC 2.60 3.80-5.20 x10*6/mcL Hgb 8.3 12.0-16.0 g/dL Hct 24.9 36.0-46.0 % MCV 95.8 80.0-100.0 fL MCH 31.9 27.0-35.0 pg MCHC 33.3 31.0-37.0 % Platelet 94 150-450 x10*3/mcL RDW 13.0 11.6-14.8 % Mean Platelet Volume 8.6 6.7-10.6 fL Reason For Referral Reason APPROVED............ .............NOT SCHEDULED.............................AETNA MCR CT myelogram lumbar spine at [facility] Diagnosis 1 Lumbar pain (M54.50) Diagnosis 2 Degenerative scolios is (M41.50) Referral Organization [facility] Referring Provider First Name Jae Referring Provider Last Name St Schafer Referring Provider Speciality Orthopedic Surgery Referred Organization [facility] SCHEDULING Referred Address [address] [place] [address], Procedure 1 CT lumbar spine; W/ contrast material (51098) General Notes Baylee Aponte 10/10 11:00:03 AM >, Lori Kumari 10/22/2024 11:04:40 AM > WAITING ON TODAY'S OFFICE NOTE, Lori Kumari 10/26/2024 09:33:55 AM > AUTHORIZATION # [id number] APPROVED AND VALID 10/26/24-04/24/25 PER BONNY. SCANNED INTO CHART AND FAXED TO FACILITY.Fadi Sara 10/26/2024 01:57:35 PM > faxed to [facility]- [phone] Referral Priority Routine Reason APPROVED OUTPATIENT...................................01/04/25............................ .......AETNA MCR L2-S1 DECOMPRESSION AND FUSION , L5-S1 TLIF [address], [address], [address] x3, 32894, 11267 x2, 41027, [address], [address] Diagnos is 1 Degenerative scoliosis (M41.50) Diagnos is 2 Lumbar stenosis with neurogenic claudica tion (M48.062) Diagnos is 3 Scoliosis of lumbar spine, unspecified s coliosis type (M41.9) Referra l [facility] Referri ng Provide r First Name Jae Referri ng Provide r Last Name [facility] Schafer Referri clyde Provide r Special ity Orthopedic Surgery Referre d [facility] Referre d Address [address] [place] [address] [facility], Procedu re 1 Arthrodesis, PLIF w/ PSF including karli ectomy and/or discectomy, sufficient to prepare interspace (other than for decompression), single interspace and segment; lumbar () Procedu re 2 GARCIA FACETC/FRMT ARTHRD LUM 1 (99915) Procedu re 3 Arthrodesis single, each addn'l level, p osteriolateral technique (29211) Procedu re 4 Laminectomy, facetectomy and foraminotom y single lumbar (08680) Procedu re 5 Laminectomy, facetectomy and foraminotom y additional vertebral segment (06365) Procedu re 6 Posterior segmental instrumentation, 3 t o 6 segments (23318) Procedu re 7 INSJ BIOMECHANICAL DEVICE (00372) Procedu re 8 Autograft for spine surgery only; local obtained from same incision () General Notes Cassidy Stpehens 12/23/2024 01:18:19 PM >, Lori Kumari 12/23/2024 03:09:24 PM > AUTHORIZATION REQUEST SUBMITTED OUTPATIENT VIA [employer] WITH CLINICALS AND AETNA SPINE FORM, PENDING AUTHORIZATION # [id number]. TURN AROUND TIME IS 14 DAYS., Lori Kumari 12/29/2024 10:54:53 AM > PENDING PER [employer]., Lori Kumari 12/31/2024 09:14:43 AM > AUTHORIZATION # [id number] APPROVED OUTPATIENT AND VALID 12/30/24-07/02/25 PER [employer]. SCANNED INTO CHART. PLEASE CHANGE TO OUTPATIENT AND SEND BACK., Cassidy Stephens 12/31/2024 12:14:44 PM >CHANGED TO OUTPATIENT, Lori Kumari 12/31/2024 12:22:06 PM > THANK YOU, FAXED TO [facility]. 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) Active confirmed Vital Signs Height 5'5 in 10/22/2024 Weight 125 lbs 10/22/2024 BMI 20.8 10/22/2024 Procedures Procedure Date Ordered Date Performed Result Body Sit e EKG 12/17/2024 N/A Encounters Encounter Location Date Provider Diagnosis [facility] [address] [place] [address] 10/22/2024 Mark Diglio Lumbar pain M54.50 ; Degenerative scoliosis M41.50 and Other intervertebral disc degeneration, lumbar region with discogenic back pain and lower extremity pain M51.362 [facility] [address] [place] [phone] 12/17/2024 Selvon Corbin Lumbar stenosis with neurogenic claudication M48.062 and Scoliosis of lumbar spine, unspecified scoliosis type M41.9 [facility] [address] [place] [address] 12/31/2024 Mark Diglio Degenerative scolios is M41.50 and Lumbar stenosis with neurogenic claudication M48.062 [facility] [address] [place], [place] [id number] 01/04/2025 Selvon Corbin Lumbar stenosis with neurogenic claudication M48.062 ; Other intervertebral disc degeneration, lumbosacral region with discogenic back pain and lower extremity pain M51.372 and Spondylolisthesis, lumbar region M43.16 [facility] [address] [place] [address] 01/31/2025 Selmatthew Alaniz [facility] [address] [place] [address] 02/05/2025 Selvon Corbin Assessments Encounter Date Diagnosis (ICD [...] limited efficacy) - Consider scheduling surgery at [facility] or [facility] based on availability - Provide patient [...] Name Order Date Chest 2 views - 05604 12/17/2024 Lumbar spine, 4v flex ext - 21416 2024 CBC 12/17/2024 PT/PTT 12/17/2024 BMP 12/17/2024 Surgery Scheduling 12/23/2024 DME - Lumbar Support, Surgical OTS 12/31 MRSA (Bilateral Nares) PCR 12/17/2024 EKG 12/17/2024 CT Myelogram - Lumbar Spine 10/22/2024 Next Appt Details Provider Name:Jae Doran air, 02/17/2025 10:10:00 AM, [address] [place] [address], [phone], Insurance Providers Payer Name Payer Address Payer Phone Subscriber Number Group Number Insured Name Patient Relationship to Insured Coverage Start Date Coverage End Date Medicare A[employer] [address] [place] [address] [id number] EDUARDO LEA Self - patient is the insured Medical (General) History Medical History History ICD Code Kidney stones - Degenerative scoliosis - Spinal arthritis with bone spurs Surgical History Surgery Date(Month/Year) Disc removed 08/14/1984 Bunionectomy 09/18/1995 L2-S1 laminectomy, PSF 01/04/2025
--- OUTSIDE RECORDS SUMMARY | 2025-02-15 09:19 | XMS_ITS | CCD ---
Author Organization [facility] Care Team Providers Care Churn Drill Operator Name Role Phone GISELA, DR RUBA Willis Primary Care Unavailable BECKER [...] DR VALENTINA Rothman Attending Unavailable HIGGINS, DR RUBA Willis Consulting Unavailable HIGGINS, DR RUBA Willis Primary Care Unavailable BECKER ., DR VALENTINA Rothman Consulting Unavailable LAKSHMIPATHY ., NARPAULINA Admitting Jessy vailable LAKSHMIPATHY ., NARENDLOWELLATH Consulting Jessy vailable LAKSHMIPATHY ., AJ Attending Jessy vailable HIGGINS, DR RUBA Willis Primary Care Unavailable HIGGINS, DR RUBA Willis Primary Care Unavailable HIGGINS, DR RUBA Willis Attending Unavailable SEDLEY, DR MINE Barriga Consulting Unavailable GISELA, DR RUBA Willis Admitting Unavailable HIGGINS, DR RUBA Willis Consulting Unavailable HIGGINS, DR RUBA Willis Attending Unavailable HIGGINS, DR RUBA Willis Admitting Unavailable ZINADER, DR PB Mitchell Consulting Unavailable HIGGINS, DR RUBA Willis Primary Care Unavailable HIGGINS, DR RUBA Willis Consulting Unavailable GISELA, DR RUBA Willis Primary [...] Higgins Unavailable RUBA HIGGINS Primary Care Physician [phone] Valeriy Higgins MD Primary Care Provider [phone] Community, Outreach Admitting Unavailable Community, Outreach Attending Unavailable Ruba Higgins Primary Care Unavailable Ruba Higgins MD Primary Care Provider Ruba Higgins MD Attending Provider Jae Fuentes MD Attending Provider Ruba Higgins MD Primary Care Unava ilable Toney SALGUERO, Suleiman Guzman Attending Unavaila leslie Wiggins MD, Sarah Mitchell Consulting UnavaMark Carbajal Admitting Unavailable Diglio, Mark Alicia Consulting Unavailable Kim READING COACH-WELDER PLASMA ARC, Katty Mott Consulting Unavailable Jae Alaniz MD Attending UnavailRuba Dempsey MD Primary Care Unava ilable Vane SALGUERO, Dulce Cooper Attending Unavailable Roman GUAN Attending Unavailable DIGLIO, MARK Attending Unavailable DIGLIO, MARK Admitting Unavailable DIGLIO, MARK Referring Unavailable Roman GUAN Attending Unavailable Roman GUAN Admitting Unavailable Roman GUAN Attending Unavailable Valeriy Higgins MD Primary Care Provider [phone] MAURA HOYT Attending Unavailable Allergies Allergy Classification Reported Allergen(s) Allergy Type Date of Onset Reaction(s) Facility (1 source) No Known Medication Allergies; Translations: [No Known Medication Allergies] Propensity to adverse reactions to drug (disorder) [facility] Repository Medications Current Medications Medication Drug Class(es) [...] End: 03-30-2024 take 1 tablet by mouth in the morning atenolol (Tenormin) 50 MG tablet Take 50 mg by mouth in the morning. 09/28/2022 Active baclofen 10 mg oral tablet (4 sources) gamma-Aminobutyric Acid-ergic Agonist Start: 12-06-2022 take [...] take 1 tablet by christian once daily Sultana-3 Fish Oil 1 tab, Oral, Daily, Refill(s) 0, Prophylaxis Start Date: 02/19/10 Status: Ordered Repeat number: 1 Start: 02-19-2010 take 1 tablet by christian th once daily Sultana-3 Fish Oil 1 tab, Oral, Daily, Refill(s) [...] Start: 02-19-2010 take 1 capsule by mo [facility] once daily Multiple Vitamins oral capsule 1 cap(s), Oral, Daily, Refill(s) 0, Prophylaxis Start Date: 02/19/10 Status: Ordered Multivitamin preparation (7 sources) Multivitamin Act marysol naproxen sodium 220 mg oral tablet (2 sources) Nonsteroidal Anti-inflammatory Drug Start: 11-24-19 take 220 [...] day(s), # 30 cap(s), Refills(s) 0, Pharmacy: [facility]/pharmacy #[id number], 56.1, kg, 09/17/23 8:03:00 EDT, Weight Dosing Start Date: 09/17/23 Stop Date: 10/17/23 Status: Ordered traMADol hydrochloride 50 mg oral tablet (9 sources) Opioid Agonist take 1 tablet by [...] tablet (20 sources) Nonsteroidal Anti-inflammatory Drug Start: 10-02-2023 End: 10-02-2023 take 1 tablet [...] 12:00am October 02, 2023 11:31am Start: 09-17-2023 End: 12-28-2024 take 1 tablet by mouth twice daily Diclofenac Sodium 50 mg tablet,delayed release (DR/EC) Discontinued 50 MG PO Twice daily April 05, 2024 1:00am December 28, 2024 2:41pm take 1 tablet by christian th four [...] [Calculus of ureter] Onset: 09-17-2023 Episodic Cataract (6 sources) Cataract; 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] [...] [OTHER MUSCLE SPASM] Onset: 09-09-2022 Episodic Other eye disorders (2 sources) Dry eyes; 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] 08-26-2024 Episodic Other hereditary and degenerative nervous system [...] Test Name Value Interpretation Reference Range Facility Calculus Analysison 02-08-20 25 CA Oxalate, Dihydrate 90 % Invalid Interpretation Code [facility] Comment on above: Performed By: #### 1 [id number] #### [facility] [address] [place] [address] CA Oxalate, Monohydr 5 % Invalid Interpretation Code [facility] Comment on above: Performed By: #### 1 [id number] #### [facility] [address] [place] [address] Color (U) Brown Invalid Interpretation Code [facility] Comment on above: Performed By: #### 1 [id number] #### [facility] [address] [place] [address] Hydroxyapatite: 5 % Invalid Interpretation Code [facility] Comment on above: Result Comment: Perf ormed at: [facility] [place] [id number] PhD Gamaliel Barriga Performed By: #### 1 [id number] #### [facility] [address] [place] [address] Size: 6x4 Invalid Interpretation Code [facility] Comment on above: Result Comment: Sing le piece received. Performed By: #### 1 [id number] #### [facility] [address] [place] [address] Stone Source Comment Invalid Interpretation Code [facility] Comment on above: Result Comment: Not provided Performed By: #### 1 [id number] #### [facility] [address] [place] [address] Weight Calculus Analysis 65 mg Invalid Interpretation Code [facility] Comment on above: Performed By: #### 1 [id number] #### [facility] [address] [place] [address] Ambulatory Visit Summaryon 0 01-28-2025 Ambulatory Visit [...] capsule) naproxen (Aleve) omega-3 polyunsaturated fatty acids (Sultana-3 Fish Oil) zolmitriptan (Zomig 5 mg oral [...] SHANNON SALGUERO, Roman Mitchell, JJ When: Where: [address] [place] [phone]- Medications What How Much When Instructions Unchanged [...] or concerns Unchanged omega-3 polyunsaturated fatty acids (Sultana-3 Fish Oil) 1 tab By Mouth Every [...] Place a (more content not included)... Normal [facility] Ambulatory Visit Summary Ambulatory Visi t Summary [...] capsule) naproxen (Aleve) omega-3 polyunsaturated fatty acids (Sultana-3 Fish Oil) zolmitriptan (Zomig 5 mg oral [...] with SHANNON SALGUERO, JJ Rucker When: Where: [address] [place], [place] [id number]- Medications What How Much When Instructions Unchanged [...] or concerns Unchanged omega-3 polyunsaturated fatty acids (Sultana-3 Fish Oil) 1 tab By Mouth Every [...] Place a (more content not included)... Normal [facility] Urology Office/Clinic Noteon 01-28-2025 Urology Office/Clinic Note [...] pass, required surgery 2 years ago in [place], [place]. Was told at this time that [...] Risks of ESWL discussed. -Schedule KADEN at [facility], pt to be called with results, consider ESWL if stone is present on KADEN -Complete met w/up in the future (will proceed with met w/up if stone is not visible on ultrasound) 2. Ureteral stone (N20.1: Calculus of ureter) CT AP wo con 10/14/23 (due to pain) [facility] - mild left pelviectasis. 0.5 cm L UVJ stone. Pt was able to pass stone, brought with her today. Will send for analysis. -See #1 Follow-up With When Contact Information SHANNON SALGUERO, Roman Mitchell, URL [address] [id number]- Additional Instructions: F/up dependent on KADEN findings [...] Vitamins oral capsule, 1 cap(s), Oral, Daily Sultana-3 Fish Oil, 1 tab, Oral, Daily Osteo Bi-Flex Zomig 5 mg oral tablet, 1 tab(s), Oral, Once, PRN Allergies No Known Allergies Social History Alcohol - Denies Alcohol Use, 02/19/2010 Substance Abuse - Denies Substance Abuse, 02/19/2010 T (more content not included)... Normal [facility] Comment on above: Result Comment: Elec tronically Signed By: Roman GUAN MD\.br\Date and Time Signed: 01/28/25 10:59 EDT\.br\Electronically Co-Signed By: Yuliana Finnegan\.br\Date and Time Co-Signed: 01/28/25 10:54 EDT\.br\Electronically Co-Signed By: Yuliana Finnegan\.br\Date and Time Co-Signed: 01/28/25 10:55 EDT C Bldon 01-10-2025 C Bld ------- Final No growth at [address] [facility] Comment on above: Performed By: #### B FORMERLY NAMED [facility] #### [place] [address] C Terrydon 01-09-2025 C Terryd WAS ABLE TO OBTAIN 1 SET OF [...] <=2 V Vancomycin S [address] [facility] Comment on above: Performed By: #### B FORMERLY NAMED [facility] #### [facility] (DEFAULT) [address] [place] [address] [facility] [address] [place] [address] .eGFRon 01-07-2025 GFR/1.73 sq M.predicted MDRD (S/P/Bld) [Vol rate/Area] mL/min/{1.73_m2} Normal >=60 [facility] Comment on above: Result Comment: [facility] have implemented the eGFR calculation [...] Age = years Performed By: #### B FORMERLY NAMED [facility] #### [facility] (DEFAULT) [address] [place] [address] [facility] [address] [place] [address] Basic Metabolic Profileon Anion gap [Moles/Vol] 4 mmol/L Normal 4-12 [facility] Comment on above: Performed By: #### C [id number] ####[facility] [place] [address] BUN Crea Ratio 9.2 ratio Low 15.0-25.0 [facility] Comment on above: Performed By: #### C [id number] ####[facility] [place] [address] Calcium [Mass/Vol] 8.0 mg/dL Low 8.6-10.3 [facility] Comment on above: Performed By: #### C [id number] ####[address] [address] Chloride [Moles/Vol] 105 mmol/L Normal 98-107 [facility] Comment on above: Performed By: #### C [id number] ####[address] [address] CO2 [Moles/Vol] 30 mmol/L Normal 21-31 [facility] Comment on above: Performed By: #### C [id number] ####[address] [address] Creatinine [Mass/Vol] 0.65 mg/dL Normal 0.60-1.20 [facility] Comment on above: Performed By: #### C [id number] ####[address] [address] Glucose [Mass/Vol] 95 mg/dL Normal 70-99 [facility] Comment on above: Performed By: #### C [id number] ####[address] [address] Potassium [Moles/Vol] 3.7 mmol/L Normal 3.4-4.8 [facility] Comment on above: Performed By: #### C [id number] ####[address] [address] Sodium [Moles/Vol] 139 mmol/L Normal 136-145 [facility] Comment on above: Performed By: #### C [id number] ####[address] [address] Urea nitrogen [Mass/Vol] 6 mg/dL Low 7-25 [facility] Comment on above: Performed By: #### C [id number] ####[address] [address] CBC w/ Diffon 08-29-2025 Erythrocyte distribution width (RBC) [Ratio] 13.0 % Normal 11.6-14.8 [facility] Comment on above: Performed By: #### B LDC #### [facility] (DEFAULT) [address] [facility] [address] [facility] [address] [place] [address] Hematocrit (Bld) [Volume fraction] 22.6 % Low 36.0-46.0 [facility] Comment on above: Performed By: #### B LDC #### [facility] (DEFAULT) [address] [place] [address] [facility] [address] [place] [address] Hemoglobin (Bld) [Mass/Vol] 7.8 g/dL Low 12.0-16.0 [facility] Comment on above: Performed By: #### B LDC #### [facility] (DEFAULT) [address] [place] [address] [facility] [address] [place] [address] MCH (RBC) [Entitic mass] 32.2 pg Normal 27.0-35.0 [facility] Comment on above: Performed By: #### B LDC #### [facility] (DEFAULT) [address] [place] [address] [facility] [address] [place] [address] MCHC 34.5 % Normal 31.0-37.0 [facility] Comment on above: Performed By: #### B LDC #### [facility] (DEFAULT) [address] [place] [address] [facility] [address] [place] [address] MCV (RBC) [Entitic vol] 93.4 fL Normal 80.0-100.0 [facility] Comment on above: Performed By: #### B LDC #### [facility] (DEFAULT) [address] [place] [address] [facility] [address] [place] [address] Platelet 144 x10*3/mcL Low 150-450 [facility] Comment on above: Performed By: #### B LDC #### [facility] (DEFAULT) [address] [place] [address] [facility] [address] [place] [address] Platelet mean volume (Bld) [Entitic vol] 8.1 fL Normal 6.7-10.6 [facility] Comment on above: Performed By: #### B LDC #### [facility] (DEFAULT) [address] [place] [address] [facility] [address] [place] [address] RBC 2.42 x10*6/mcL Low 3.80-5.20 [facility] Comment on above: Performed By: #### B LDC #### [facility] (DEFAULT) [address] [place] [address] [facility] [address] [place] [address] WBC 7.0 x10*3/mcL Normal 4.5-11.0 [facility] Comment on above: Performed By: #### B LDC #### [facility] (DEFAULT) [address] [place] [address] [facility] [address] [place] [address] Diff Autoon 01-07-2025 Baso Absolute 0.0 x10*3/mcL Normal 0.0-0.2 [facility] Comment on above: Performed By: #### B LDC #### [facility] (DEFAULT) [address] [place] [address] [facility] [address] [place] [address] Basophils/100 WBC (Bld) 0.4 % Normal 0.0-1.5 [facility] Comment on above: Performed By: #### B LDC #### [facility] (DEFAULT) [address] [place] [address] [facility] [address] [place] [address] Eos Absolute 0.1 x10*3/mcL Normal 0.0-0.4 [facility] Comment on above: Performed By: #### B LDC #### [facility] (DEFAULT) [address] [place] [address] [facility] [address] [place] [address] Eosinophils/100 WBC (Bld) 1.9 % Normal 0.0-5.4 [facility] Comment on above: Performed By: #### B LDC #### [facility] (DEFAULT) [address] [place] [address] [facility] [address] [place] [address] Lymph Absolute 1.1 x10*3/mcL Normal 1.0-4.8 [facility] Comment on above: Performed By: #### B LDC #### [facility] (DEFAULT) [address] [place] [address] [facility] [address] [place] [address] Lymphocytes/100 WBC (Bld) 15.3 % Low 27.2-40.8 [facility] Comment on above: Performed By: #### B LDC #### [facility] (DEFAULT) [address] [place] [address] [facility] [address] [place] [address] [place] Absolute 1.0 x10*3/mcL Normal 0.1-1.1 [facility] Comment on above: Performed By: #### B LDC #### [facility] (DEFAULT) [address] [place] [address] [facility] [address] [place] [address] Monocytes/100 WBC (Bld) 14.9 % High 3.7-11.9 [facility] Comment on above: Performed By: #### B LDC #### [facility] (DEFAULT) [address] [place] [address] [facility] [address] [place] [address] Neutro Absolute 4.7 x10*3/mcL Normal 1.8-7.7 [facility] Comment on above: Performed By: #### B LDC #### [facility] (DEFAULT) [address] [place] [address] [facility] [address] [place] [address] Neutro Auto 67.5 % Normal 47.2-70.8 [facility] Comment on above: Performed By: #### B LDC #### [facility] (DEFAULT) [address] [place] [address] [facility] [address] [place] [address] Inpatient Clinical Summaryon 01-07-2025 Inpatient Clinical Summary [facility] [address] [place] [phone] [address] [phone] Clinical Summary Person Information Name: Ninfa Lea Age: 84 Years : 1940 Sex: Female PCP: Gisela SALGUERO, Ruba Stiles Marital Status: Phone: PCP: Race: White Ethnicity: Not or Language: Persian Visit Id: Visit Reason: Speciality: Acuity: Enc Type: Observation Med Service: Orthopedics Arrival: 01/04/2025 09:00:39 Discharge: Dispo Type: Address: [address] [place] [id number] Preferred Communication Mode: Verbal Preferred Language: Persian Discharge Diagnosis: Spinal stenosis, lumbar region Discharged To: Home with home health Mode of Discharge Transportation: Private vehicle Home Treatments: Devices/Equipment: Professional Skilled Services: Special Services and Community Resources: Discharge Orders: Follow up with Primary Care Provider (PCP) 01/07/25 14:19:00 EDT, 1 to 2 weeks [facility] Facility Certification 01/07/25 14:19:00 EDT, Home Care, I certify home care is anticipated to be LESS than 30 days. Provider to Resume Care: Vini SALGUERO to follow., 01/07/25 14:19:00 EDT, 01/07/25 14:19:00 EDT Tube Feeding and Supplements Home Health Consult and Ambulatory Referrals Home with Home Health 01/06/25 14:10:00 EDT, *[facility] - Eval & Treat P: [phone] F: , 01/06/25 14:10:00 EDT Home with Home Health 01/06/25 14:08:00 EDT, *[facility] - Eval & Treat P: [phone] F: , 01/06/25 14:08:00 EDT Treatment and [...] Valuables/Belongings : Hearing aids, Glasses, Electronics, Wallet/Purse/Money JH History of Falls Within 6 Months: No [...] range between ( 27.2 and 40.8 ) [place] Auto: 14.9 % -- Normal range between [...] range between ( 36.0 and 46.0 ) [place] Absolute: 1.0 x10 MCH: 32.2 pg -- [...] range between (more content not included)... Normal [facility] Orthopedic Progress Noteon 0 01-07-2025 Orthopedic Progress [...] Mark Lemus PA-C 01/07/25 06:[address] [facility] .eGFRon 01-06-2025 GFR/1.73 sq M.predicted MDRD (S/P/Bld) [Vol rate/Area] mL/min/{1.73_m2} Normal >=60 [facility] Comment on above: Result Comment: [facility] have implemented the eGFR calculation [...] years Performed By: #### B LDC #### [facility] (DEFAULT) [address] [place] [address] [facility] [address] [place] [address] Basic Metabolic Profileon Anion gap [Moles/Vol] 6 mmol/L Normal 4-12 [facility] Comment on above: Performed By: #### B LDC #### [facility] (DEFAULT) [address] [place] [address] [facility] [address] [place] [address] BUN Crea Ratio 14.7 ratio Low 15.0-25.0 [facility] Comment on above: Performed By: #### B LDC #### [facility] (DEFAULT) [address] [place] [address] [facility] [address] [place] [address] Calcium [Mass/Vol] 7.8 mg/dL Low 8.6-10.3 [facility] Comment on above: Performed By: #### B LDC #### [facility] (DEFAULT) [address] [place] [address] [facility] [address] [place] [address] Chloride [Moles/Vol] 106 mmol/L Normal 98-107 [facility] Comment on above: Performed By: #### B LDC #### [facility] (DEFAULT) [address] [place] [address] [facility] [address] [place] [address] CO2 [Moles/Vol] 27 mmol/L Normal 21-31 [facility] Comment on above: Performed By: #### B LDC #### [facility] (DEFAULT) [address] [place] [address] [facility] [address] [place] [address] Creatinine [Mass/Vol] 0.68 mg/dL Normal 0.60-1.20 [facility] Comment on above: Performed By: #### B LDC #### [facility] (DEFAULT) [address] [place] [address] [facility] [address] [place] [address] Glucose [Mass/Vol] 96 mg/dL Normal 70-99 [facility] Comment on above: Performed By: #### B LDC #### [facility] (DEFAULT) [address] [place] [address] [facility] [address] [place] [address] Potassium [Moles/Vol] 3.8 mmol/L Normal 3.4-4.8 [facility] Comment on above: Performed By: #### B LDC #### [facility] (DEFAULT) [address] [place] [address] [facility] [address] [place] [address] Sodium [Moles/Vol] 139 mmol/L Normal 136-145 [facility] Comment on above: Performed By: #### B LDC #### [facility] (DEFAULT) [address] [place] [address] [facility] [address] [place] [address] Urea nitrogen [Mass/Vol] 10 mg/dL Normal 7-25 [facility] Comment on above: Performed By: #### B LDC #### [facility] (DEFAULT) [address] [place] [address] [facility] [address] [place] [address] CBC w/ Diffon 01-06-2025 Erythrocyte distribution width (RBC) [Ratio] 13.0 % Normal 11.6-14.8 [facility] Comment on above: Performed By: #### C BC ####[facility] [place] [address] Hematocrit (Bld) [Volume fraction] 24.9 % Low 36.0-46.0 [facility] Comment on above: Performed By: #### C BC ####[address] [address] Hemoglobin (Bld) [Mass/Vol] 8.3 g/dL Low 12.0-16.0 [facility] Comment on above: Performed By: #### C BC ####[address] [address] MCH (RBC) [Entitic mass] 31.9 pg Normal 27.0-35.0 [facility] Comment on above: Performed By: #### C BC ####[address] [address] MCHC 33.3 % Normal 31.0-37.0 [facility] Comment on above: Performed By: #### C BC ####[address] [address] MCV (RBC) [Entitic vol] 95.8 fL Normal 80.0-100.0 [facility] Comment on above: Performed By: #### C BC ####[address] [address] Platelet 94 x10*3/mcL Low 150-450 [facility] Comment on above: Performed By: #### C BC ####[address] [address] Platelet mean volume (Bld) [Entitic vol] 8.6 fL Normal 6.7-10.6 [facility] Comment on above: Performed By: #### C BC ####[address] [address] RBC 2.60 x10*6/mcL Low 3.80-5.20 [facility] Comment on above: Performed By: #### C BC ####[address] [address] WBC 8.3 x10*3/mcL Normal 4.5-11.0 [facility] [facility] Comment on above: Performed By: #### C BC ####[address] [address] Diff Autoon 01-06-2025 Baso Absolute 0.0 x10*3/mcL Normal 0.0-0.2 [facility] Comment on above: Performed By: #### . Automated Diff ####[address] [address] Basophils/100 WBC (Bld) 0.2 % Normal 0.0-1.5 [facility] Comment on above: Performed By: #### . Automated Diff ####[address] [address] Eos Absolute 0.1 x10*3/mcL Normal 0.0-0.4 [facility] Comment on above: Performed By: #### . Automated Diff ####[address] [address] Eosinophils/100 WBC (Bld) 0.6 % Normal 0.0-5.4 [facility] Comment on above: Performed By: #### . Automated Diff ####[address] [address] Lymph Absolute 1.2 x10*3/mcL Normal 1.0-4.8 [facility] Comment on above: Performed By: #### . Automated Diff ####[address] [address] Lymphocytes/100 WBC (Bld) 14.5 % Low 27.2-40.8 [facility] Comment on above: Performed By: #### . Automated Diff ####[address] [address] [place] Absolute 1.1 x10*3/mcL Normal 0.1-1.1 [facility] Comment on above: Performed By: #### . Automated Diff ####[address] [address] Monocytes/100 WBC (Bld) 13.4 % High 3.7-11.9 [facility] Comment on above: Performed By: #### . Automated Diff ####[address] [address] Neutro Absolute 5.9 x10*3/mcL Normal 1.8-7.7 [facility] Comment on above: Performed By: #### . Automated Diff ####[address] [address] Neutro Auto 71.3 % High 47.2-70.8 [facility] Comment on above: Performed By: #### . Automated Diff ####[address] [address] Orthopedic Progress Noteon 0 01-06-2025 Orthopedic Progress [...] by Pb Ko PA-C 01/06/25 06:[address] [facility] .eGFRon 01-05-2025 Estimated GFR 59 mL/min/1.73m? Low >=60 [facility] Comment on above: Order Comment: Order added by Discern rule Result Comment: [facility] have implemented the eGFR calculation [...] = years Performed By: #### E GFR ####[facility] [place] [address] Basic Metabolic Profileon Anion gap [Moles/Vol] 8 mmol/L Normal 4-12 [facility] Comment on above: Performed By: #### B LDC #### [facility] (DEFAULT) [address] [place] [address] [facility] [address] [place] [address] BUN Crea Ratio 17.0 ratio Normal 15.0-25.0 [facility] Comment on above: Performed By: #### B LDC #### [facility] (DEFAULT) [address] [place] [address] [facility] [address] [place] [address] Calcium [Mass/Vol] 7.9 mg/dL Low 8.6-10.3 [facility] Comment on above: Performed By: #### B LDC #### [facility] (DEFAULT) [address] [place] [address] [facility] [address] [place] [address] Chloride [Moles/Vol] 103 mmol/L Normal 98-107 [facility] Comment on above: Performed By: #### B LDC #### [facility] (DEFAULT) [address] [facility] [address] [facility] [address] [place] [address] CO2 [Moles/Vol] 24 mmol/L Normal 21-31 [facility] Comment on above: Performed By: #### B LDC #### [facility] (DEFAULT) [address] [place] [address] [facility] [address] [place] [address] Creatinine [Mass/Vol] 0.94 mg/dL Normal 0.60-1.20 [facility] Comment on above: Performed By: #### B LDC #### [facility] (DEFAULT) [address] [place] [address] [facility] [address] [place] [address] Glucose [Mass/Vol] 146 mg/dL High 70-99 [facility] Comment on above: Performed By: #### B LDC #### [facility] (DEFAULT) [address] [facility] [address] [facility] [address] [place] [address] Potassium [Moles/Vol] 4.5 mmol/L Normal 3.4-4.8 [facility] Comment on above: Performed By: #### B LDC #### [facility] (DEFAULT) [address] [facility] [address] [facility] [address] [place] [address] Sodium [Moles/Vol] 135 mmol/L Low 136-145 [facility] Comment on above: Performed By: #### B LDC #### [facility] (DEFAULT) [address] [place] [address] [facility] [address] [place] [address] Urea nitrogen [Mass/Vol] 16 mg/dL Normal 7-25 [facility] Comment on above: Performed By: #### B LDC #### [facility] (DEFAULT) [address] [place] [address] [facility] [address] [place] [address] CBC w/ Diffon 01-05-2025 Erythrocyte distribution width (RBC) [Ratio] 13.1 % Normal 11.6-14.8 [facility] Comment on above: Performed By: #### B LDC #### [facility] (DEFAULT) [address] [place] [address] [facility] [address] [place] [address] Hematocrit (Bld) [Volume fraction] 29.0 % Low 36.0-46.0 [facility] Comment on above: Performed By: #### B LDC #### [facility] (DEFAULT) [address] [place] [address] [facility] [address] [place] [address] Hemoglobin (Bld) [Mass/Vol] 9.9 g/dL Low 12.0-16.0 [facility] Comment on above: Performed By: #### B LDC #### [facility] (DEFAULT) [address] [place] [address] [facility] [address] [place] [address] MCH (RBC) [Entitic mass] 32.3 pg Normal 27.0-35.0 [facility] Comment on above: Performed By: #### B LDC #### [facility] (DEFAULT) [address] [place] [address] [facility] [address] [place] [address] MCHC 34.0 % Normal 31.0-37.0 [facility] Comment on above: Performed By: #### B LDC #### [facility] (DEFAULT) [address] [place] [address] [facility] [address] [place] [address] MCV (RBC) [Entitic vol] 95.0 fL Normal 80.0-100.0 [facility] Comment on above: Performed By: #### B LDC #### [facility] (DEFAULT) [address] [place] [address] [facility] [address] [place] [address] Platelet 149 x10*3/mcL Low 150-450 [facility] Comment on above: Performed By: #### B LDC #### [facility] (DEFAULT) [address] [place] [address] [facility] [address] [place] [address] Platelet mean volume (Bld) [Entitic vol] 8.3 fL Normal 6.7-10.6 [facility] Comment on above: Performed By: #### B LDC #### [facility] (DEFAULT) [address] [place] [address] [facility] [address] [place] [address] RBC 3.05 x10*6/mcL Low 3.80-5.20 [facility] Comment on above: Performed By: #### B LDC #### [facility] (DEFAULT) [address] [place] [address] [facility] [address] [place] [address] WBC 8.7 x10*3/mcL Normal 4.5-11.0 [facility] Comment on above: Performed By: #### B LDC #### [facility] (DEFAULT) [address] [place] [address] [facility] [address] [place] [address] Consultation Note - Generico n 01-05-2025 Consultation [...] resting in bed. Recently ambulated to the BR without difficulty, noted chronic tremors in her [...] no crepitations or wheeze. Breathing nonlabored. 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 On room air. [...] commands. Psyc (more content not included)... Normal [facility] Diff Autoon 01-05-2025 Baso Absolute 0.0 x10*3/mcL Normal 0.0-0.2 [facility] Comment on above: Performed By: #### B LDC #### [address] [address] Basophils/100 WBC (Bld) 0.2 % Normal 0.0-1.5 [facility] Comment on above: Performed By: #### B LDC #### [address] [address] Eos Absolute 0.0 x10*3/mcL Normal 0.0-0.4 [facility] Comment on above: Performed By: #### B LDC #### [address] [address] Eosinophils/100 WBC (Bld) 0.1 % Normal 0.0-5.4 [facility] Comment on above: Performed By: #### B LDC #### [address] [address] Lymph Absolute 0.9 x10*3/mcL Low 1.0-4.8 [facility] Comment on above: Performed By: #### B LDC #### [address] [address] Lymphocytes/100 WBC (Bld) 10.6 % Low 27.2-40.8 [facility] Comment on above: Performed By: #### B LDC #### [address] [address] [place] Absolute 0.9 x10*3/mcL Normal 0.1-1.1 [facility] Comment on above: Performed By: #### B LDC #### [address] [address] Monocytes/100 WBC (Bld) 10.2 % Normal 3.7-11.9 [facility] Comment on above: Performed By: #### B LDC #### [address] [address] Neutro Absolute 6.9 x10*3/mcL Normal 1.8-7.7 [facility] Comment on above: Performed By: #### B LDC #### [address] [address] Neutro Auto 78.9 % High 47.2-70.8 [facility] Comment on above: Performed By: #### B LDC #### [address] [address] HSTI Randomon 01-05-2025 hs Troponin I 561 ng/L Critically abnormal 0-15 [facility] Comment on above: Result Comment: Crit ical Result Notification Called date and time: 01/05/2025 06:45:33 EDT Result called to and read back by: Doretha Arana FARM DEMONSTRATOR (First, Last, Title, Location) Performed By: #### C D:[id number] ####[address] [address] hs Troponin I 504 ng/L Critically abnormal 0-15 [facility] Comment on above: Result Comment: Crit ical Result Notification Called date and time: 01/05/2025 05:10:49 EDT Result called to and read back by: Tyron Wise RN 6NU (First, Last, Title, Location) Performed By: #### B LDC #### [facility] (DEFAULT) [address] [place] [id number] [address] Hemoglobinon 01-05-2025 Hemoglobin (Bld) [Mass/Vol] 8.9 g/dL Low 12.0-16.0 [facility] Comment on above: Performed By: #### B LDC #### [address] [address] Hep Func Panelon 01-05-2025 Albumin [Mass/Vol] 3.6 g/dL Low 3.7-5.3 [facility] Comment on above: Performed By: #### B LDC #### [facility] (DEFAULT) [address] [place] [address] [facility] [address] [place] [address] Alk Phos 60 IU/L Normal 34-104 [facility] Comment on above: Performed By: #### B LDC #### [facility] (DEFAULT) [address] [place] [address] [facility] [address] [place] [address] ALT [Catalytic activity/Vol] 15 U/L Normal 7-52 [facility] Comment on above: Performed By: #### B LDC #### [facility] (DEFAULT) [address] [place] [address] [facility] [address] [place] [address] AST [Catalytic activity/Vol] 30 U/L Normal 13-39 [facility] Comment on above: Performed By: #### B LDC #### [facility] (DEFAULT) [address] [place] [address] [facility] [address] [place] [address] Bili Direct 0.10 mg/dL Normal 0.03-0.18 [facility] Comment on above: Performed By: #### B LDC #### [facility] (DEFAULT) [address] [place] [address] [facility] [address] [place] [address] Bili Indirect 0.8 mg/dL Normal 0.0-1.0 [facility] Comment on above: Performed By: #### B LDC #### [facility] (DEFAULT) [address] [place] [address] [facility] [address] [place] [address] Bili Total 0.9 mg/dL Normal 0.3-1.0 [facility] Comment on above: Performed By: #### B LDC #### [facility] (DEFAULT) [address] [place] [address] [facility] [address] [place] [address] Protein [Mass/Vol] 5.5 g/dL Low 6.0-8.3 [facility] Comment on above: Performed By: #### B LDC #### [facility] (DEFAULT) [address] [place] [address] [facility] [address] [place] [address] Hgb & Hcton 01-05-2025 Hematocrit (Bld) [Volume fraction] 28.6 % Low 36.0-46.0 [facility] Comment on above: Performed By: #### B LDC #### [facility] (DEFAULT) [address] [place] [address] [facility] [address] [place] [address] Hemoglobin (Bld) [Mass/Vol] 9.7 g/dL Low 12.0-16.0 [facility] Comment on above: Performed By: #### B LDC #### [facility] (DEFAULT) [address] [place] [address] [facility] [address] [place] [address] Lactic Acid, Randomon 2024 Lactic Acid Lvl 1.9 mmol/L Normal 0.5-2.0 [facility] Comment on above: Performed By: #### L A ####[facility] [place] [address] Magnesiumon 01-05-2025 Magnesium [Mass/Vol] 1.8 mg/dL Normal 1.7-2.4 [facility] Comment on above: Performed By: #### M G ####[facility] [place] [address] Orthopedic Progress Noteon 0 01-05-2025 Orthopedic Progress [...] Pb Ko PA-C 01/05/25 06:[address] [facility] POC Glucose Randomon 025 Glucose [Mass/Vol] 120 mg/dL High 70-99 [facility] Comment on above: Performed By: #### C D:[id number] ####[address] [place] [address] XR OR Spine Lumbar Crossfire on 01-05-2025 [...] Electronically Signed in Other Vendor System) Normal [facility] ABO/Rhon 01-04-2025 ABO/Rh ABO/Rh: A POS Normal [facility] Comment on above: Performed By: #### A BORH #### [facility] (UNKNOWN) [address] [place] [address] ABSC Autoon 01-04-2025 ABSC Auto Negative Normal [facility] Comment on above: Performed By: #### B LDC #### [facility] [address] [place] [address] Activated partial thrombopla stin time (aPTT) in platelet poor plasma by coagulation aOrdered By: Jae Alvarez on 12-28-2024 aPTT Coag (PPP) [Time] 26.7 s 22.3-36.2 [facility] Basophils Auto (Bld) [#/Vol] Ordered By: Jae Alvarez on 12-28-2024 Basophils (Bld) [#/Vol] 0.0 10 3/uL 0.0-0.1 [facility] Basophils/100 WBC Auto (Bld) Ordered By: Jae Alvarez on 12-28-2024 Basophils/100 WBC (Bld) 0.4 % 0.2-2.0 [facility] Eosinophils/100 WBC Auto (Bl d)Ordered By: Jae Alvarez on 12-28-2024 Eosinophils/100 WBC (Bld) 3.0 % 0.9-7.0 [facility] Erythrocyte distribution wid th Auto (RBC) [Ratio]Ordered By: Jae Alvarez on 12-28-2024 Erythrocyte distribution width (RBC) [Ratio] 12.4 % 11.0-15.0 [facility] Glomerular filtration rate ( GFR) estimation in non- AmericanOrdered By: Jae Alvarez on 12-28-2024 GFR/1.73 sq M.predicted among non-blacks MDRD (S/P/Bld) [Vol rate/Area] mL/min/{1.73_m2} >=60 mL/min/1.73m 2 [facility] Hematocrit Auto (Bld) [Volum e fraction]Ordered By: Jae Alvarez on 12-28-2024 Hematocrit (Bld) [Volume fraction] 40.2 % 36.0-48.0 [facility] Hemoglobin [Mass/volume] in BloodOrdered By: Jae Alvarez on 12-28-2024 Hemoglobin (Bld) [Mass/Vol] 13.1 g/dL 12.0-16.0 [facility] INR in Platelet poor plasma by Coagulation assayOrdered By: Jae Alvarez on 12-28-2024 INR Coag (PPP) [Relative time] 1.02 {INR} [facility] Comment on above: DESIRED INR:2.0-3.0 CONDITIONS NOT LISTED BELOW2.5-3.5 FOR PROSTHETIC HEART VALVE REPLACEMENT2.5-3.5 RECURRENT THROMBOSIS Laboratory - Chemistry and C hemistry - challengeOrdered By: Jae Alvarez on 12-28-2024 Calcium [Mass/Vol] 9.2 mg/dL 8.5-10.1 [facility] Chloride [Moles/Vol] 104 mmol/L 98-107 [facility] CO2 [Moles/Vol] 30.9 mmol/L 21.0-32.0 [facility] Creatinine [Mass/Vol] 0.87 mg/dL 0.55-1.02 [facility] GFR/1.73 sq M.predicted MDRD (S/P/Bld) [Vol rate/Area] mL/min/{1.73_m2} >=60 mL/min/1.73m 2 [facility] Glucose [Mass/Vol] 91 mg/dL 74-106 [facility] Potassium [Moles/Vol] 3.8 mmol/L 3.5-5.1 [facility] Sodium [Moles/Vol] 142 mmol/L 136-145 [facility] Urea nitrogen [Mass/Vol] 13.0 mg/dL 7.0-18.0 [facility] Urea nitrogen/Creatinine [Mass ratio] 14.9 mg/mg [facility] Laboratory - Hematology and Cell countsOrdered By: Jae Alvarez on 12-28-2024 Immature granulocytes/100 WBC (Bld) 0.2 % 0.0-0.5 [facility] Leukocytes [#/volume] correc bill for nucleated erythrocytes in Blood by Automated counOrdered By: Selmatthew Dossir on 12-28-2024 WBC corrected for nucl RBC Auto (Bld) [#/Vol] 4.7 10 3/uL 4.0-11.0 [facility] Lymphocytes Auto (Bld) [#/Vo l]Ordered By: Selmatthew Dossir on 12-28-2024 Lymphocytes (Bld) [#/Vol] 1.3 10 3/uL 1.2-3.8 [facility] Lymphocytes/100 WBC Auto (Bl d)Ordered By: Jae Dossir on 12-28-2024 Lymphocytes/100 WBC (Bld) 27.4 % 20.5-60.0 [facility] MCH Auto (RBC) [Entitic mass ]Ordered By: Selmicheln Kim on 12-28-2024 MCH (RBC) [Entitic mass] 31.6 pg 26.7-34.0 [facility] MCHC Auto (RBC) [Mass/Vol]Or dered By: Selvon Kim on 12-28-2024 MCHC (RBC) [Mass/Vol] 32.6 g/dL 29.9-35.2 [facility] MCV Auto (RBC) [Entitic vol] Ordered By: Selvon Kim on 12-28-2024 MCV (RBC) [Entitic vol] 97.1 fL 81.0-99.0 [facility] Monocytes Auto (Bld) [#/Vol] Ordered By: Selvon Kim on 12-28-2024 Monocytes (Bld) [#/Vol] 0.6 10 3/uL 0.3-0.8 [facility] Monocytes/100 WBC Auto (Bld) Ordered By: Selvon Kim on 12-28-2024 Monocytes/100 WBC (Bld) 13.4 % High 1.7-12.0 [facility] Neutrophils Auto (Bld) [#/Vo l]Ordered By: Jae Alvarez on 12-28-2024 Neutrophils (Bld) [#/Vol] 2.6 10 3/uL 1.4-6.5 [facility] Neutrophils/100 WBC Auto (Bl d)Ordered By: Jae Alvarez on 12-28-2024 Neutrophils/100 WBC (Bld) 55.6 % 43.0-75.0 [facility] No Panel InformationOrdered By: Jae Alvarez on 12-28-2024 Eosinophils # (Auto) 0.1 10 3/uL 0.0-0.7 [facility] Immature Granulocyte # (Auto) 0.01 10 3/uL 0.00-0.03 [facility] Platelet mean volume Auto (B ld) [Entitic vol]Ordered By: Jae Alvarez on 12-28-2024 Platelet mean volume (Bld) [Entitic vol] 10.1 fL 9.5-13.5 [facility] Platelets Auto (Bld) [#/Vol] Ordered By: Jae Alvarez on 12-28-2024 Platelets (Bld) [#/Vol] 212 10 3/uL 150-450 [facility] Prothrombin time (PT)Ordered By: Jae Alvarez on 12-28-2024 PT Coag (PPP) [Time] 10.8 s 9.0-11.6 [facility] RBC Auto (Bld) [#/Vol]Ordere d By: Jae Alvarez on 12-28-2024 RBC (Bld) [#/Vol] 4.14 10 6/uL Low 4.20-5.40 [facility] Serum or plasma anion gap de terminationOrdered By: Jae Alvarez on 12-28-2024 Anion gap [Moles/Vol] 10.9 mmol/L [facility] CT Spine Lumbar w/ Contrasto n [...] Schulte MD Transcribed by: DIOGO Technologist: ASHUTOSH Najma Keenan [facility] XR Myelography Lumbosacralon 11-23-2024 XR Myelography [...] MD Transcribed by: DIOGO Technologist: GENO Yao [facility] Basophils Auto (Bld) [#/Vol] on 09-09-2023 Basophils (Bld) [#/Vol] 0.0 10 3/uL 0.0-0.1 [facility] Basophils/100 WBC Auto (Bld) on 09-09-2023 Basophils/100 WBC (Bld) 0.4 % 0.2-2.0 [facility] Casts typing in urine sedime nt by light microscopyon 09-09-2023 Casts LM Nom (Urine sed) NONE SEEN #/LPF NONE S EEN [facility] Eosinophils/100 WBC Auto (Bl d)on 09-09-2023 Eosinophils/100 WBC (Bld) 1.1 % 0.9-7.0 [facility] Erythrocyte distribution wid th Auto (RBC) [Ratio]on 09-09-2023 Erythrocyte distribution width (RBC) [Ratio] 13.0 % 11.0-15.0 [facility] Estimated glomerular filtrat ion rate (GFR) non- Americanon 09-09-2023 GFR/1.73 sq M.predicted among non-blacks MDRD (S/P/Bld) [Vol rate/Area] 52 mL/min/{1.73_m2} Low >=60 [facility] Globulin Calc (S) [Mass/Vol] on 09-09-2023 Globulin (S) [Mass/Vol] 3.5 g/dL [facility] Hematocrit Auto (Bld) [Volum e fraction]on 09-09-2023 Hematocrit (Bld) [Volume fraction] 39.0 % 36.0-48.0 [facility] Hemoglobin [Mass/volume] in Bloodon 09-09-2023 Hemoglobin (Bld) [Mass/Vol] 12.6 g/dL 12.0-16.0 [facility] Laboratory - Chemistry and C hemistry - challengeon 09-09-2023 Albumin [Mass/Vol] 3.6 g/dL 3.4-5.0 [facility] ALP [Catalytic activity/Vol] 74 U/L 46-116 [facility] ALT [Catalytic activity/Vol] 30 U/L 14-59 [facility] AST [Catalytic activity/Vol] 24 U/L 15-37 [facility] Bilirubin [Mass/Vol] 0.5 mg/dL 0.2-1.0 [facility] Calcium [Mass/Vol] 9.8 mg/dL 8.5-10.1 [facility] Chloride [Moles/Vol] 102 mmol/L 98-107 [facility] CO2 [Moles/Vol] 31.2 mmol/L 21.0-32.0 [facility] Creatinine [Mass/Vol] 1.01 mg/dL 0.55-1.02 [facility] GFR/1.73 sq M.predicted MDRD (S/P/Bld) [Vol rate/Area] mL/min/{1.73_m2} >=60 [facility] Glucose [Mass/Vol] 100 mg/dL 74-106 [facility] Lipase [Catalytic activity/Vol] 25.0 U/L 16.0-77.0 [facility] Potassium [Moles/Vol] 3.9 mmol/L 3.5-5.1 [facility] Protein [Mass/Vol] 7.1 g/dL 6.4-8.2 [facility] Sodium [Moles/Vol] 140 mmol/L 136-145 [facility] Urea nitrogen [Mass/Vol] 22.0 mg/dL High 7.0-18.0 [facility] Urea nitrogen/Creatinine [Mass ratio] 21.8 mg/mg [facility] Bilirubin Ql (U) Negative NEGATIVE [facility] Glucose (U) [Mass/Vol] Negative NE[facility]IVE [facility] Ketones Ql (U) Negative NEGATIVE [facility] pH (U) 6.0 [pH] 5.0-9.0 [facility] Specific gravity (U) [Rel density] 1.020 1.005-1.025 [facility] Urobilinogen Qn (U) 0.2 {Sosa'U}/dL 0.2-1.0 [facility] Laboratory - Hematology and Cell countson 09-09-2023 Immature granulocytes/100 WBC (Bld) 0.3 % 0.0-0.5 [facility] Laboratory - Specimen inform ationon 09-09-2023 Appearance (U) CLEAR CLEAR [facility] Color (U) DK. YELLOW YELLOW [facility] Laboratory - Urinalysison Amorphous sediment LM Ql (Urine sed) RARE [facility] Leukocyte esterase Test strip Ql (U) TRACE Abnormal NEGATIVE [facility] Nitrite Ql (U) Negative NEGATIVE [facility] Protein Ql (U) Negative NEG/TRACE [facility] [facility] [#/volume] correc bill for nucleated erythrocytes in Blood by Automated counon 09-09-2023 WBC corrected for nucl RBC Auto (Bld) [#/Vol] 10.7 10 3/uL 4.0-11.0 [facility] Lymphocytes Auto (Bld) [#/Vo l]on 09-09-2023 Lymphocytes (Bld) [#/Vol] 1.5 10 3/uL 1.2-3.8 [facility] Lymphocytes/100 WBC Auto (Bl d)on 09-09-2023 Lymphocytes/100 WBC (Bld) 13.7 % Low 20.5-60.0 [facility] MCH Auto (RBC) [Entitic mass ]on 09-09-2023 MCH (RBC) [Entitic mass] 31.2 pg 26.7-34.0 [facility] MCHC Auto (RBC) [Mass/Vol]on 09-09-2023 MCHC (RBC) [Mass/Vol] 32.3 g/dL 29.9-35.2 [facility] MCV Auto (RBC) [Entitic vol] on 09-09-2023 MCV (RBC) [Entitic vol] 96.5 fL 81.0-99.0 [facility] Monocytes Auto (Bld) [#/Vol] on 09-09-2023 Monocytes (Bld) [#/Vol] 1.0 10 3/uL High 0.3-0.8 [facility] Monocytes/100 WBC Auto (Bld) on 09-09-2023 Monocytes/100 WBC (Bld) 9.5 % 1.7-12.0 [facility] Mucus LM Ql (Urine sed)on Mucus Ql (Urine sed) NONE SEEN NONE SEEN [facility] Neutrophils Auto (Bld) [#/Vo l]on 09-09-2023 Neutrophils (Bld) [#/Vol] 8.0 10 3/uL High 1.4-6.5 [facility] Neutrophils/100 WBC Auto (Bl d)on 09-09-2023 Neutrophils/100 WBC (Bld) 75.0 % 43.0-75.0 [facility] No Panel Informationon 09-08 Eosinophils # (Auto) 0.1 10 3/uL 0.0-0.7 [facility] Immature Granulocyte # (Auto) 0.03 10 3/uL 0.00-0.03 [facility] Urine Bacteria NONE SEEN #/HPF NONE SEEN [facility] Microscopic Review YES [facility] Urine Occult Blood LARGE Abnormal NEGATIVE [facility] Urine Other Crystals Seen #/HPF Abnormal None Seen [facility] Urine RBC 10-20 #/HPF Abnormal 0-2 [facility] Urine Squamous Epithelial Cells NONE SEEN #/LPF NONE/RARE [facility] Urine Uric Acid Crystals FEW [facility] Urine WBC 2-5 #/HPF Abnormal NONE SEEN [facility] Platelet mean volume Auto (B ld) [Entitic vol]on 09-09-2023 Platelet mean volume (Bld) [Entitic vol] 9.5 fL 9.5-13.5 [facility] Platelets Auto (Bld) [#/Vol] on 09-09-2023 Platelets (Bld) [#/Vol] 240 10 3/uL 150-450 [facility] RBC Auto (Bld) [#/Vol]on RBC (Bld) [#/Vol] 4.04 10 6/uL Low 4.20-5.40 [facility] Serum or plasma albumin/glob ulin mass ratioon 09-09-2023 Albumin/Globulin [Mass ratio] 1.0 {ratio} [facility] Serum or plasma anion gap de terminationon 09-09-2023 Anion gap [Moles/Vol] 10.7 mmol/L [facility] XR RIBS LT PA Stephen 3 [...] by: PB GENAO Date: 2022-10-02 11:51 Normal [facility] XR CSPINE 2_3 VIEWSon 2022 [...] by: ISAEL GRIFFIN Date: 2022-09-05 15:58 Normal [facility] CBC AUTO DIFFon 12-31-2021 BASO # 0.0 103/ul Normal 0.0-0.1 [facility] Comment on above: Performed By: #### C BC #### [facility] [address] [address] [address] Radha Land Basophils/100 WBC (Bld) 0.2 % Normal 0.2-2.0 [facility] Comment on above: Performed By: #### C BC #### [facility] [address] [address] [address] Radha Land EO # 0.2 103/ul Normal 0.0-0.7 [facility] Comment on above: Performed By: #### C BC #### [facility] [address] [place] [address] Dr. Radha Land Eosinophils/100 WBC (Bld) 1.7 % Normal 0.9-7.0 [facility] Comment on above: Performed By: #### C BC #### [facility] [address] [place] [address] Dr. Radha Land Erythrocyte distribution width (RBC) [Ratio] 13.4 % Normal 11.0-15.0 [facility] Comment on above: Performed By: #### C BC #### [facility] [address] [place] [address] Dr. Radha Land Hematocrit (Bld) [Volume fraction] 40.9 % Normal 36.0-48.0 [facility] Comment on above: Performed By: #### C BC #### [facility] [address] [place] [address] Dr. Radha Land Hemoglobin (Bld) [Mass/Vol] 13.1 g/dL Normal 12.0-16.0 [facility] Comment on above: Performed By: #### C BC #### [facility] [address] [place] [address] Dr. Radha Land IG # 0.05 10e3/ul Critically high 0.00-0.03 [facility] Comment on above: Performed By: #### C BC #### [facility] [address] [place] [address] Dr. Radha Land IG % 0.4 % Normal 0.0-0.5 [facility] Comment on above: Performed By: #### C BC #### [facility] [address] [place] [address] Dr. Radha Land LYMPH # 1.4 103/ul Normal 1.2-3.8 [facility] Comment on above: Performed By: #### C BC #### [facility] [address] [place] [address] Dr. Radha Land Lymphocytes/100 WBC (Bld) 10.8 % Critically low 20.5-60.0 [facility] Comment on above: Performed By: #### C BC #### [facility] [address] [place] [address] Dr. Radha Land MANUAL DIFF REQ NO Normal [facility] Comment on above: Performed By: #### C BC #### [facility] [address] [place] [address] Dr. Radha Land MCH (RBC) [Entitic mass] 31.5 pg Normal 26.7-34.0 [facility] Comment on above: Performed By: #### C BC #### [facility] [address] [place] [address] Dr. Radha Land MCHC (RBC) [Mass/Vol] 32.0 g/dL Normal 29.9-35.2 [facility] Comment on above: Performed By: #### C BC #### [facility] [address] [place] [address] Dr. Radha Land MCV (RBC) [Entitic vol] 98.3 fL Normal 81.0-99.0 [facility] Comment on above: Performed By: #### C BC #### [facility] [address] [place] [address] Dr. Radha Land MONO # 1.3 103/ul Critically high 0.3-0.8 [facility] Comment on above: Performed By: #### C BC #### [facility] [address] [place] [address] Dr. Radha Land Monocytes/100 WBC (Bld) 9.7 % Normal 1.7-12.0 [facility] Comment on above: Performed By: #### C BC #### [facility] [address] [place] [address] Dr. Radha Land NEUT # 10.2 103/ul Critically high 1.4-6.5 [facility] Comment on above: Performed By: #### C BC #### [facility] [address] [place] [address] Dr. Radha Land Neutrophils/100 WBC (Bld) 77.2 % Critically high 43.0-75.0 [facility] Comment on above: Performed By: #### C BC #### [facility] [address] [place] [address] Dr. Radha Land Platelet mean volume (Bld) [Entitic vol] 9.7 fL Normal 9.5-13.5 [facility] Comment on above: Performed By: #### C BC #### [facility] [address] [address] [address] Radha Land PLT 235 103/ul Normal 150-450 [facility] Comment on above: Performed By: #### C BC #### [facility] [address] [place] [address] Dr. Radha Land RBC 4.16 106/ul Critically low 4.20-5.40 [facility] Comment on above: Performed By: #### C BC #### [facility] [address] [place] [address] Dr. Radha Land WBC 13.2 103/ul Critically high 4.0-11.0 [facility] Comment on above: Performed By: #### C BC #### [facility] [address] [place] [address] Dr. Radha Land SED RATE SEDLEYERGREN 2021 SED RATE 35 mm/hr Critically high <=30 [facility] Comment on above: Performed By: #### S EDR #### [facility] [address] [place] [address] Dr. Radha Land CBC AUTO DIFFon 11-07-2021 BASO # 0.0 103/ul Normal 0.0-0.1 [facility] Comment on above: Performed By: #### C BC ####[facility] [address] [address]Dr. Radha Land Basophils/100 WBC (Bld) 0.3 % Normal 0.2-2.0 [facility] Comment on above: Performed By: #### C BC ####[facility] [address] [address]Dr. Radha Land EO # 0.2 103/ul Normal 0.0-0.7 [facility] Comment on above: Performed By: #### C BC ####[facility] [address] [place], [place] [address]Dr. Radha Land Eosinophils/100 WBC (Bld) 3.3 % Normal 0.9-7.0 [facility] Comment on above: Performed By: #### C BC ####[facility] [address] [place], [place] [address]Dr. Radha Land Erythrocyte distribution width (RBC) [Ratio] 13.2 % Normal 11.0-15.0 [facility] Comment on above: Performed By: #### C BC ####[facility] [address] [place], [place] [address]Dr. Radha Land Hematocrit (Bld) [Volume fraction] 41.9 % Normal 36.0-48.0 [facility] Comment on above: Performed By: #### C BC ####[facility] [address] [place], [place] [address]Dr. Radha Land Hemoglobin (Bld) [Mass/Vol] 13.4 g/dL Normal 12.0-16.0 [facility] Comment on above: Performed By: #### C BC ####[facility] [address] [place], [place] [address]Dr. Radha Emery IG # 0.01 10e3/ul Normal 0.00-0.03 [facility] Comment on above: Performed By: #### C BC ####[facility] [address] [place], [place] [address]Dr. Radha Emery IG % 0.2 % Normal 0.0-0.5 [facility] Comment on above: Performed By: #### C BC ####[facility] [address] [place], [place] [address]Dr. Radha Land LYMPH # 1.6 103/ul Normal 1.2-3.8 [facility] Comment on above: Performed By: #### C BC ####[facility] [address] [place], [place] [address]DrHernandez Land Lymphocytes/100 WBC (Bld) 27.5 % Normal 20.5-60.0 [facility] Comment on above: Performed By: #### C BC ####[facility] [address] [address]DrHernandez Land MANUAL DIFF REQ NO Normal [facility] Comment on above: Performed By: #### C BC ####[facility] [address] [address]DrHernandez Land MCH (RBC) [Entitic mass] 31.2 pg Normal 26.7-34.0 [facility] Comment on above: Performed By: #### C BC ####[facility] [address] [address]DrHernandez Land MCHC (RBC) [Mass/Vol] 32.0 g/dL Normal 29.9-35.2 [facility] Comment on above: Performed By: #### C BC ####[facility] [address] [place], [place] [address]DrHernandez Land MCV (RBC) [Entitic vol] 97.7 fL Normal 81.0-99.0 [facility] Comment on above: Performed By: #### C BC ####[facility] [address] [place], [place] [address]DrHernandez Land MONO # 0.7 103/ul Normal 0.3-0.8 [facility] Comment on above: Performed By: #### C BC ####[facility] [address] [place], [place] [address]DrHernandez Land Monocytes/100 WBC (Bld) 12.4 % Critically high 1.7-12. 0 [facility] Comment on above: Performed By: #### C BC ####[facility] [address] [place], [place] [address]DrHernandez Land NEUT # 3.2 103/ul Normal 1.4-6.5 [facility] Comment on above: Performed By: #### C BC ####[facility] [address] [place], [place] [address]DrHernandez Land Neutrophils/100 WBC (Bld) 56.3 % Normal 43.0-75.0 [facility] Comment on above: Performed By: #### C BC ####[facility] [address] [id number][address] Radha Land Platelet mean volume (Bld) [Entitic vol] 9.4 fL Critically low 9.5-13.5 [facility] Comment on above: Performed By: #### C BC ####[facility] [address] [id number]. Radha Emery PLT 226 103/ul Normal 150-450 [facility] Comment on above: Performed By: #### C BC ####[facility] [address] [address]Dr. Radha Land RBC 4.29 106/ul Normal 4.20-5.40 [facility] Comment on above: Performed By: #### C BC ####[facility] [address] [address]Dr. Radha Emery WBC 5.7 103/ul Normal 4.0-11.0 [facility] Comment on above: Performed By: #### C BC ####[facility] [address] [id number] Valladarescharlotte Emery LIPID PROFILEon 11-07-2021 CHOL-HDL RATIO NORM SEE BELOW Normal [facility] Comment on above: Result Comment: 3.3 - 4.4 LOW RISK 4.4 - 7.1 AVERAGE RISK 7.1 - 11.0 MODERATE RISK >11.0 HIGH RISK Performed By: #### L IPID, CMP #### [facility] [address] [address] [address] Radha Land Cholesterol [Mass/Vol] 257 mg/dL Critically high <=200 [facility] Comment on above: Performed By: #### L IPID, CMP #### [facility] [id number] [address] Radha Land Cholesterol in HDL [Mass/Vol] 76 mg/dL Critically high 40-60 [facility] Comment on above: Performed By: #### L IPID, CMP #### [facility] [address] [address] [address] Radha Land Cholesterol in LDL [Mass/Vol] 163.8 mg/dL Normal [facility] Comment on above: Performed By: #### L IPID, CMP #### [facility] [address] [address] [address] Radha Land Cholesterol.total/Choles terol in HDL [Mass ratio] 3.4 {ratio} Normal [facility] Comment on above: Performed By: #### L IPID, CMP #### [facility] [address] [address] [address] Radha Land HDL NORMAL > or = 60 mg/dl - LOW CARDIOVASCULAR RISK <40 mg/dl - HIGH CARDIOVASCULAR RISK Normal [facility] Comment on above: Performed By: #### L IPID, CMP #### [facility] [address] [place] [address] Dr. Radha Land LDL CALC NORMAL SEE BELOW Normal [facility] Comment on above: Result Comment: <100 mg/dl OPTIMAL 100 - 129 mg/dl NEAR OR ABOVE OPTIMAL 130 - 159 mg/dl BORDERLINE HIGH 160 - 189 mg/dl HIGH >190 mg/dl VERY HIGH Performed By: #### L IPID, CMP #### [facility] [address] [place] [address] Dr. Radha Land Triglyceride [Mass/Vol] 86 mg/dL Normal <=150 T [facility] Comment on above: Performed By: #### L IPID, CMP #### [facility] [address] [place] [address] Dr. Radha Land VLDL CALC 17.2 mg/dL Normal [facility] Comment on above: Performed By: #### L IPID, CMP #### [facility] [address] [place] [address] Dr. Radha Land MG MAMM SCREEN 3D ROD CADon 11-07-2021 MG MAMM SCREEN 3D ROD CAD Patient: NINFA LEA Exam Date: 11/07/2021 : 1940 Gender:F Ordering : DR RUBA HIGGINS M.D. Admission #: [id number] Family : Order #: [id number] CLICK HERE TO VIEW EXAM RADIOLOGY REPORT [...] ovarian cancer at age 47. LOCATION: [facility] BREAST COMPOSITION: Extremely dense, which [...] Arriaga MD on 11/07/2021 at 11:21 Normal [facility] PROF 14(COMP METB)on 022 Albumin [Mass/Vol] 3.6 g/dL Normal 3.4-5.0 [facility] Comment on above: Performed By: #### L IPID, CMP #### [facility] [address] [place] [address] Dr. Radha Land Albumin/Globulin [Mass ratio] 0.9 {ratio} Normal [facility] Comment on above: Performed By: #### L IPID, CMP #### [facility] [address] [address] [address] Radha Land ALP [Catalytic activity/Vol] 79 U/L Normal 46-116 [facility] Comment on above: Performed By: #### L IPID, CMP #### [facility] [address] [place] [address] Dr. Radha Land ALT [Catalytic activity/Vol] 32 U/L Normal 14-59 [facility] Comment on above: Performed By: #### L IPID, CMP #### [facility] [address] [address] [address] Radha Land Anion gap [Moles/Vol] 6.1 mmol/L Normal [facility] Comment on above: Performed By: #### L IPID, CMP #### [facility] [address] [address] [address] Radha Land AST [Catalytic activity/Vol] 28 U/L Normal 15-37 [facility] Comment on above: Performed By: #### L IPID, CMP #### [facility] [address] [place] [address] Dr. Radha Land Bilirubin [Mass/Vol] 0.6 mg/dL Normal 0.2-1.0 [facility] Comment on above: Performed By: #### L IPID, CMP #### [facility] [address] [place] [address] Dr. Radha Land Calcium [Mass/Vol] 9.1 mg/dL Normal 8.5-10.1 [facility] Comment on above: Performed By: #### L IPID, CMP #### [facility] [address] [place] [address] Dr. Radha Land Chloride [Moles/Vol] 104 mmol/L Normal 98-107 [facility] Comment on above: Performed By: #### L IPID, CMP #### [facility] [address] [place] [address] Dr. Radha Land CO2 [Moles/Vol] 31.0 mmol/L Normal 21.0-32.0 [facility] Comment on above: Performed By: #### L IPID, CMP #### [facility] [address] [place] [address] Dr. Radha Land Creatinine [Mass/Vol] 0.86 mg/dL Normal 0.55-1.02 [facility] Comment on above: Performed By: #### L IPID, CMP #### [facility] [address] [place] [address] Dr. Radha Land EGFR-AF ALBANIAN >60 Normal >=60 [facility] Comment on above: Performed By: #### L IPID, CMP #### [facility] [address] [address] [address] Radha Land EGFR-NON AF ALBANIAN >60 Normal >=60 [facility] Comment on above: Performed By: #### L IPID, CMP #### [facility] [address] [address] [address] Radha Land Globulin (S) [Mass/Vol] 4.1 g/dL Normal T [facility] Comment on above: Performed By: #### L IPID, CMP #### [facility] [address] [address] [address] Radha Land Glucose [Mass/Vol] 89 mg/dL Normal 74-106 [facility] Comment on above: Performed By: #### L IPID, CMP #### [facility] [address] [place] [address] Dr. Radha Land Potassium [Moles/Vol] 4.1 mmol/L Normal 3.5-5.1 [facility] Comment on above: Performed By: #### L IPID, CMP #### [facility] [address] [place] [address] Dr. Radha Land Protein [Mass/Vol] 7.7 g/dL Normal 6.4-8.2 [facility] Comment on above: Performed By: #### L IPID, CMP #### [facility] [address] [place] [address] Dr. Radha Land Sodium [Moles/Vol] 137 mmol/L Normal 136-145 [facility] Comment on above: Performed By: #### L IPID, CMP #### [facility] [address] [place] [address] Dr. Radha Land Urea nitrogen [Mass/Vol] 12.0 mg/dL Normal 7.0-18.0 [facility] Comment on above: Performed By: #### L IPID, CMP #### [facility] [address] [place] [address] Dr. Radha Land Urea nitrogen/Creatinine [Mass ratio] 14.0 mg/mg Normal [facility] Comment on above: Performed By: #### L IPID, CMP #### [facility] [address] [place] [address] Dr. Radha Land Vital Signs Date Time Vital Sign Value Performing Clinician Facility 12-28-2024 14:24-0400 Body height 165.1 cm Ruba Higgins MD Work Phone: [facility] 12-28-2024 14:24-0400 Body mass index (BMI) [Ratio] 20.5 kg/m2 Ruba Higgins MD Work Phone: [facility] 12-28-2024 14:24-0400 Body weight 55.79 kg Ruba Higgins MD Work Phone: [facility] 12-28-2024 14:24-0400 Diastolic blood pressure 73 mm[Hg] Ruba Higgins MD Work Phone: [facility] 12-28-2024 14:24-0400 Heart rate 57 /min Ruba Higgins MD Work Phone: [facility] 12-28-2024 14:24-0400 Systolic blood pressure 133 mm[Hg] Ruba Higgins MD Work Phone: [facility] 10-14-2024 09:57-0400 Body height 165.1 cm [facility] 10-14-2024 09:57-0400 Body mass index (BMI) [Ratio] 20.3 kg/m2 [facility] 10-14-2024 09:57-0400 Body weight 55.56 kg [facility] 10-14-2024 09:57-0400 Diastolic blood pressure 81 mm[Hg] [facility] 10-14-2024 09:57-0400 Heart rate 84 /min [facility] 10-14-2024 09:57-0400 Systolic blood pressure 160 mm[Hg] [facility] 09-15-2024 08:18-0400 Body weight 55.1 kg [facility] 09-15-2024 08:18-0400 Diastolic blood pressure 71 mm[Hg] [facility] 09-15-2024 08:18-0400 Systolic blood pressure 109 mm[Hg] [facility] [facility] 11-18-2023 10:53-0400 Body height 165.1 cm [facility] 11-18-2023 10:53-0400 Body mass index (BMI) [Ratio] 20.5 kg/m2 [facility] 11-18-2023 10:53-0400 Body weight 55.79 kg [facility] 11-18-2023 10:53-0400 Diastolic blood pressure 55 mm[Hg] [facility] 11-18-2023 10:53-0400 Heart rate 65 /min [facility] 11-18-2023 10:53-0400 Systolic blood pressure 132 mm[Hg] [facility] 11-06-2023 11:11-0400 Body height 165.1 cm [facility] 11-06-2023 11:11-0400 Body mass index (BMI) [Ratio] 20.2 kg/m2 [facility] 11-06-2023 11:11-0400 Body weight 55.33 kg [facility] 11-06-2023 11:11-0400 Diastolic blood pressure 67 mm[Hg] [facility] 11-06-2023 11:11-0400 Heart rate 61 /min [facility] 11-06-2023 11:11-0400 Systolic blood pressure 124 mm[Hg] [facility] 10-13-2023 12:31-0400 Blood Pressure Location Roman GUAN [facility] 10-13-2023 12:31-0400 Diastolic blood pressure 78 mm[Hg] Roman GUAN [facility] 10-13-2023 12:31-0400 Heart rate 80 /min Roman GUAN [facility] 10-13-2023 12:31-0400 Respiratory rate 16 /min Roman GUAN [facility] 10-13-2023 12:31-0400 Systolic blood pressure 134 mm[Hg] Roman GUAN [facility] 09-30-2023 14:31-0400 Body height 165.1 cm [facility] 09-30-2023 14:31-0400 Body mass index (BMI) [Ratio] 20.5 kg/m2 [facility] 09-30-2023 14:31-0400 Body weight 55.79 kg [facility] 09-30-2023 14:31-0400 Diastolic blood pressure 62 mm[Hg] [facility] 09-30-2023 14:31-0400 Heart rate 64 /min [facility] 09-30-2023 14:31-0400 Systolic blood pressure 104 mm[Hg] [facility] 09-17-2023 08:00-0400 Blood Pressure Location Roman GUAN [facility] 09-17-2023 08:00-0400 Diastolic blood pressure 80 mm[Hg] Roman GUAN [facility] 09-17-2023 08:00-0400 Heart rate 64 /min Romanarminda GUAN [facility] 09-17-2023 08:00-0400 Systolic blood pressure 132 mm[Hg] Roman GUAN [facility] 01-10-2023 09:45-0400 Body height 165.1 cm Ruba Higgins Other [facility] Other 01-10-2023 09:45-0400 Body mass index (BMI) [Ratio] 20.87 kg/m2 Ruba Higgins Other [facility] Other 01-10-2023 09:45-0400 Body weight 56.88 kg Ruba Higgins Other [facility] Other 01-10-2023 09:45-0400 Diastolic blood pressure 78 mm[Hg] Ruba Higgins Other [facility] Other 01-10-2023 09:45-0400 Systolic blood pressure 142 mm[Hg] Ruba Higgins Other [facility] Other 10-28-2022 08:30-0400 Body height 165.1 cm Ruba Higgins Other [facility] Other 10-28-2022 08:30-0400 Body mass index (BMI) [Ratio] 20.47 kg/m2 Ruba Higgins Other [facility] Other 10-28-2022 08:30-0400 Body weight 55.79 kg Ruba Higgins Other [facility] Other 10-28-2022 08:30-0400 Diastolic blood pressure 47 mm[Hg] Ruba Higgins Other [facility] Other 10-28-2022 08:30-0400 Systolic blood pressure 124 mm[Hg] Ruba Higgins Other [facility] Other Encounters Encounter Date Encounter Type Care Provider Facility Start: 02-10-2025 End: 02-10-2025 Boogie Hoyt MD Work Phone: [facility] Start: 02-10-2025 End: 02-10-2025 Boogie Hoyt MD Work Phone: [facility] Start: 02-10-2025 End: 02-10-2025 ambulatory MAURA HOYT Not Available Start: 01-28-2025 End: 01-28-2025 ambulatory Roman GUAN [facility] Start: 01-28-2025 End: 01-28-2025 Patient encounter procedure Roman GUAN [facility] Start: 01-04-2025 End: 01-07-2025 ambulatory Ruba Higgins MD Facility:[facility] Start: 12-30-2024 End: 12-30-2024 ambulatory Jae Alaniz MD Facility:[facility] Start: 12-28-2024 End: 12-28-2024 ambulatory Ruba Higgins MD Work Phone: [facility] Work Phone: Start: 12-28-2024 End: 12-28-2024 Patient encounter procedure Ruba Higgins MD -[facility] Work Phone: Start: 12-28-2024 Non-patient / Non-visit Jae Alaniz MD -[facility] Work Phone: Start: 11-29-2024 End: 11-29-2024 ambulatory Roman GUAN Facility:[facility] Start: 11-29-2024 End: 11-29-2024 Patient encounter procedure Roman GUAN [facility] Start: 11-23-2024 End: 11-23-2024 ambulatory MARK LEMUS Facility[facility] Start: 11-01-2024 End: 11-01-2024 ambulatory Dulce Cifuentes MD Facility:[facility] Start: 10-14-2024 End: 10-14-[address] [facility] Work Phone: Start: 10-14-2024 End: 10-14-2024 Patient encounter procedure [facility] Work Phone: Start: 09-15-2024 End: 09-15-[address] [facility] Work Phone: Start: 09-15-2024 End: 09-15-2024 Patient encounter procedure [facility]ician [facility] Work Phone: Start: 08-18-2024 End: 08-18-[address] [facility] Work Phone: Start: 08-18-2024 End: 08-18-2024 Patient encounter procedure [facility] Work Phone: Start: 03-16-2024 End: 03-16-[address] [facility] Work Phone: Start: 03-16-2024 End: 03-16-2024 Patient encounter procedure [facility] Work Phone: Start: 01-05-2024 End: 01-05-2024 Bamboo flowsheet Maura Hoyt MD Work Phone: [facility] Start: 01-05-2024 End: 01-05-2024 Bamboo flowsheet Maura Hoyt MD Work Phone: [facility] Start: 12-09-2023 End: 12-09-[address] [facility] Work Phone: Start: 12-09-2023 End: 12-09-2023 Patient encounter procedure [facility] Work Phone: Start: 11-18-2023 End: 11-18-[address] [facility] Work Phone: Start: 11-18-2023 End: 11-18-2023 Patient encounter procedure [facility] Work Phone: Start: 11-10-2023 Patient encounter procedure [facility] Start: 11-06-2023 End: 11-06-2023 Patient encounter procedure [facility] Work Phone: Start: 10-13-2023 End: 10-13-2023 Patient encounter procedure Roman GUAN [facility] Start: 09-30-2023 End: 09-30-[address] [facility] Work Phone: Start: 09-30-2023 End: 09-30-2023 Patient encounter procedure [facility] Work Phone: Start: 09-17-2023 End: 09-17-2023 Patient encounter procedure Roman Stephen GUAN [facility] Start: 09-09-2023 Non-patient / Non-visit [facility] Physician [facility] Work Phone: Start: 08-26-2023 End: 08-26-[address] [facility] Work Phone: Start: 08-26-2023 End: 08-26-2023 Patient encounter procedure [facility] Work Phone: Start: 03-28-2023 End: 03-28-2023 ambulatory Ruba Higgins Other [facility] Other Start: 03-28-2023 Telephone encounter Ruba Higgins [facility] Start: 01-31-2023 End: 01-31-2023 ambulatory Ruba Higgins Other [facility] Other Start: 01-31-2023 Nursing evaluation o f patient and report Ruba Higgins [facility] Start: 01-14-2023 End: 01-14-2023 ambulatory Ruba Higgins Other [facility] Other Start: 01-14-2023 Telephone encounter Ruba Higgins [facility] Start: 01-10-2023 End: 01-10-2023 ambulatory Ruba Higgins Other [facility] Other Start: 01-10-2023 Office outpatient visit 15 minutes Ruba Higgins [facility] Start: 10-28-2022 End: 10-28-2022 ambulatory Ruba Higgins Other [facility] Other Start: 10-28-2022 Patient encounter procedure Ruba Higgins [facility] Start: 10-24-2022 End: 10-24-2022 ambulatory Ruba Higgins Other [facility] Other Start: 10-24-2022 Telephone encounter Ruba Higgins [facility] Start: 10-08-2022 End: 10-08-2022 ambulatory AJ LEMIPATHY . Facility:[facility] Start: 10-02-2022 End: 10-03-2022 ambulatory [...] 12-31-2021 Adult health examination Ruba Higgins Other [facility] Other Start: 12-31-2021 End: 01-01-[address] RUBA HIGGINS Facility:[facility] Start: 12-25-2021 End: 12-26-[address] VALENTINA BECKER . Facility:[facility] Start: 12-19-2021 End: 12-20-[address] VALENTINA BECKER . Facility:[facility] Start: 11-07-2021 End: 11-08-[address] RUBA HIGGINS Facility:[facility] Start: 03-01-2017 End: 03-01-2017 ambulatory [facility] Facility:[facility] Procedures Date Procedure Procedure Detail Performing Clinician Start: 02-10-2025 End: 02-10-2025 [facility] medical xm&eval comprhnsv estab pt 1/> Dry eyes Maura Hoyt MD Work Phone: Comment on above: Dry eyes (Primary Dx ); PCO (posterior capsular opacification), bilateral Start: 11-23-2024 Myelogram Roman PONCE Start: 01-05-2024 End: 01-05-2024 [facility] xm&eval comprhnsv estab pt 1/> Dry eyes Maura Hoyt MD Work Phone: Comment on above: Dry eyes (Primary Dx ); PCO (posterior capsular opacification), bilateral Start: 02-28-2014 right cataract extra ction with intraocular lens implantation Roman GUAN Cataract extraction and insertion of intraocular lens Roman GUAN Comment on above: left eye cervical herniated d isc removed Roman GUAN Excision of bunion Roman Bjorn SEVILLA Comment on above: bilateralwillard Hysterectomy and rod ateral salpingo-oophorectomy sample (specimen) Roman GUAN Screening for malign ant neoplasm of breast Ruba iHggins Other stapidectomy 3 Roman ZAPATA Lorna Comment on above: right ear Plan of Treatment Date Care Activity Detail Author Start: 02-10-2025 End: 02-10-2025 Patient encounter procedure 02/10/2025 1:30 PM EDT Office Visit [facility] [address] [place] [address] Maura Hoyt MD [address] [place] [address] [facility] Comment on above: Arrived Start: 01-10-2025 Influenza vaccination Influenza Vacc ine (#1) [facility] Start: 10-14-[address] [facility] Work Phone: Start: 09-15-[address] [facility] Work Phone: Start: 01-11-2024 Influenza vaccination Influenza Vacc ine (#1) [facility] Start: 01-05-2024 End: 01-05-2024 Patient encounter procedure 01/05/2024 2:00 PM EDT Office Visit [facility] [address] [place] [address] Maura Hoyt MD [address] [place] [address] Arrived [facility] Comment on above: Arrived Start: 03-10-2019 Pneumococcal Vaccine : 65+ Years (2 of 2 - PPSV23 or PCV20) Pneumococcal Vaccine: 65+ Years (2 of 2 - PPSV23 or PCV20) [facility] Start: 03-10-2019 Pneumococcal Vaccine : 65+ Years (2 of 2 - PPSV23) Pneumococcal Vaccine: 65+ Years (2 of 2 - PPSV23) [facility] Diagnostic radiograp hy of abdomen [facility] MG Breast - bilatera l Screening [facility] Patient Education Low back pain in adults [facility] Work Phone: Patient referral [facility] Work Phone: [facility] Immunizations Immunization Date Immunization Notes Care Provider Fa cility 03-16-2024 influenza, high dose seasonal, preservative-free [facility] 03-16-2024 influenza virus vaccine, unspecified formulation Maura Hoyt MD Work Phone: [facility] 02-14-2023 influenza virus vaccine, unspecified formulation Roman GUAN [facility] 03-12-2022 SARS-CoV-2 (COVID-19 ) [id number] Roman GUAN [facility] Comment on above: Result Comment: 2023: [id number] 02-28-2022 influenza virus vaccine, split virus (incl. purified surface antigen) Ruba Higgins Other [facility] Other 02-28-2022 influenza virus vaccine, unspecified formulation [facility] 11-09-2021 SARS-CoV-2 (COVID-19 ) mRNA-1273 vaccine Roman GUAN [facility] Comment on above: Result Comment: 2023: [id number] 03-08-2021 SARS-CoV-2 (COVID-19 ) mRNA-1273 vaccine Roman GUAN [facility] 02-27-2021 influenza virus vaccine, split virus (incl. purified surface antigen) Ruba Higgins Other [facility] Other 02-27-2021 influenza virus vaccine, unspecified formulation [facility] 06-29-2020 SARS-CoV-2 (COVID-19 ) mRNA-1273 vaccine Roman GUAN [facility] 06-01-2020 SARS-CoV-2 (COVID-19 ) mRNA-1273 vaccine Roman GUAN [facility] 03-14-2020 zoster vaccine recombinant Roman GUAN [facility] 02-16-2020 influenza virus vaccine, split virus (incl. purified surface antigen) Ruba Higigns Other [facility] Other 02-16-2020 influenza virus vaccine, unspecified formulation [facility] 10-25-2019 pneumococcal polysaccharide vaccine, 23 valent Ruba Higgins Other [facility] 01-25-2019 influenza virus vaccine, unspecified formulation Roman GUAN [facility] 03-10-2018 pneumococcal conjuga te vaccine, 13 valent Ruba Higgins Other [facility] 02-14-2018 influenza virus vaccine, unspecified formulation Roman GUAN [facility] 01-08-2017 influenza virus vaccine, split virus (incl. purified surface antigen) Ruba Higgins Other [facility] Other 01-08-2017 influenza virus vaccine, unspecified formulation [facility] 02-06-2016 influenza virus vaccine, split virus (incl. purified surface antigen) Ruba Higgins Other [facility] Other 02-06-2016 influenza virus vaccine, unspecified formulation [facility] 03-24-2015 influenza virus vaccine, split virus (incl. purified surface antigen) Ruba Higgins Other [facility] Other 03-24-2015 influenza virus vaccine, unspecified formulation [facility] 02-26-2013 tetanus and diphther ia toxoids, adsorbed, preservative free, for adult use (5 Lf of tetanus toxoid and 2 Lf of diphtheria toxoid) Ruba Higgins Other [facility] Payers Date Payer Category Payer Medicaid [employer] MEDICARE A DVANTAGE [id number] 2024 Private Health Insurance [facility] [id number] 2024 Private Health Insurance 2022 Medicare [id number] 2017 Self-pay 1959 Medicare [id number] 1939 Unknown [id number] 2.16.840.1.243896.3.579.2. 593 1939 Unknown [id number] 2.16.840.1.461219.3.579.2. 593 1939 Unknown [id number] 2.16.840.1.252647.3.579.2. 593 1939 Unknown [id number] 2.16.840.1.595806.3.579.2. 593 1939 Unknown [id number] 2.16.840.1.911596.3.579.2. 593 1939 Unknown [id number] 2.16.840.1.621271.3.579.2. 593 1939 Unknown [id number] 2.16.840.1.199126.3.579.2. 593 1939 Unknown [id number] 2.16.840.1.420951.3.579.2. 593 1939 Unknown [id number] 2.16.840.1.424888.3.579.2. 593 1939 Unknown [id number] 2.16.840.1.003346.3.579.2. 593 1939 Unknown [id number] 2.16.840.1.078371.3.579.2. 593 1939 Unknown [id number] 2.16.840.1.738014.3.579.2. 593 1939 Unknown [id number] 2.16.840.1.626222.3.579.2. 196 1939 Unknown [id number] 2.16.840.1.595231.3.579.2. 196 1939 Unknown [id number] 2.16.840.1.061117.3.579.2. 196 1939 Unknown [id number] 2.16.840.1.480412.3.579.2. 727 1939 Unknown [id number] 2.16.840.1.725752.3.579.2. 727 1939 Unknown [id number] 2.16.840.1.807699.3.579.2. 727 1939 Unknown [id number] 2.16.840.1.803066.3.579.2. 727 1939 Unknown [id number] 2.16.840.1.881660.3.579.2. 1259 Private Health Insurance [id number] 2.16.840.1.163020.19 Unknown [id number] 2.16.840.1.119340.3.579.2. 531 Social History Date Type Detail Facility Unknown if ever smoked [facility] Other Start: 01-05-2024 Sex Assigned At F [facility] Start: 1940 Sex Assigned At Female F [facility] Start: 12-25-2022 End: 09-17-2023 Tobacco smoking status Never smoked tobacco (finding) [facility] Tobacco smoking status Never [facility] Start: 1940 Sex assigned at Not on file [facility] Work Phone: Start: 12-21-2009 End: 08-18-2024 Sex Female (finding) [facility] Sexual Orientation [facility] Start: 01-05-2024 History of Social function [facility] Functional Status Date Assessment Result Facility 10-13-2023 Functional Status N/A [facility] 09-17-2023 Functional Status N/A [facility] Clinical Notes 12-19-2021 to 02-10-2025 Maura Hoyt MD - 02/10/2025 1:30 PM EDT Note Date & Type Note Facility 02-10-2025 History of Present illness Narrative No Known Allergies Past Medical History: Diagnosis [...] laser capsulotomy, they are to notify their signal fitter promptly if they have a significant change in symptoms, such as flashes of light (photopsia), an increase in floaters, loss of visual field or decrease in visual acuity. Dry Eyes OU -- Environmental changes to minimize dryness and exposure and the use of artificial tears were recommended. documented in this encounter [facility] 01-28-2025 Hospital Discharge instructions Patient Education 01/28/2025 10:41:33 Dietary Guidelines [...] include: ?8 oz (237 mL) of milk, vwuxoon-mymexqjseudq-rctvv milk, and calcium-fortifiedfruit juice. Calcium-fortified means that [...] ?Spinach (cooked), rhubarb, beets, sweet potatoes, and Solomon Islander chard. ?Peanuts. ?Potato chips, yakut fries, and baked potatoes with skin on. ?Nuts and nut products. ?Chocolate. If you regularly take a diuretic medicine, make sure to eat at least 1 or 2 servings of fruits or vegetables that are high in potassium each day. These include: ?Avocado. ?Banana. ?[place], prune, carrot, or tomato juice. ?Baked potato. [...] magnesium, fish oil, or vitamin B6. Take munp-zup-ytlcbev and prescription medicines only as told by [...] Casseroles. Pizza. Lasagna. Frozen meals. Potato chips. Macedonian fries. The items listed above may not [...] provider. Document Revised: 08/08/2022 Document Reviewed: 08/08/2022 [employer] Patient Education 2023 [employer]. Follow Up Care 11/29/2024 13:19:17 With:SHANNON SALGUERORoman, URL Address: [address] [place] [address]- When: Unknown [facility] 01-28-2025 Note Patient Education Nephrology Dietary Guidelines [...] ? 8 oz (237 mL) of milk, hxlbpjt-edqdhufqtzhc-amhzs milk, and calcium-fortifiedfruit juice. Calcium-fortified means that [...] Spinach (cooked), rhubarb, beets, sweet potatoes, and [place] Islander chard. ? Peanuts. ? Potato chips, yakut fries, and baked potatoes with skin on. ? Nuts and nut products. ? Chocolate. ??? If you regularly take a diuretic medicine, make sure to eat at least 1 or 2 servings of fruits or vegetables that are high in potassium each day. These include: ? Avocado. ? Banana. ? [place], prune, carrot, or tomato juice. ? Baked [...] fish oil, or vitamin B6. ??? Take boyx-qut-fibkvcn and prescription medicines only as told by your health (more content not included)... [facility] 01-12-2025 Note Admission Informatio n DATE OF [...] dural tear, nerve root injury, nonunion, DVT/PE, ND, stroke, etc. All questions were answered. Informed [...] Discharge Condition Stable Discharge Disposition home with HH Electronically signed by Allan MCDONALD, Mark Vargas 01/20/25 10:[address] [facility] 01-04-2025 Note Operative Report DATE OF PROCEDURE: [...] 24cc [employer] SURGEON: Jae Alaniz MD SENIOR ADMINISTRATIVE ASSOCIATE: HARRY Wellington PA-C assisted throughout the procedure [...] dural tear, nerve root injury, nonunion, DVT/PE, ND, stroke, etc. All questions were answered. Informed [...] CARE: The patient (more content not included)... [facility] 01-03-2025 Note Chief Complaint Back pain History [...] PA-C 01/03/25 16:[address] Kim SALGUERO Kandijonathan Dooley 01/04/2025 11:[address] [facility] 10-14-2024 Evaluation note Diagnosis Onset Date Resolution Lumbar back pain acute October 9:56am Skin tear of right lower leg without complication acute October 14, 2024 9 :56am Abnormal finding on EKG acute A ugust 2024 2:17pm [facility] Work Phone: 1(492) 358-480104-09-2025 Evaluation note* Diagnosis Onset Date Resolution Status Admit Date Seasonal allergic rhinitis acute August 18, 2024 11:44am [facility] Work Phone: 1(330) 925-605604-09-2025 Evaluation note* Diagnosis Onset Date Resolution Status Admit Date Seasonal allergic rhinitis acute August 18, 2024 11:44am Lumbar back pain acute September 15, 2024 8:13am Lumbar back pain acute October 9:56am [facility] Work Phone: 1(476) 597-611608-26-2024 History of Present illness Narrative* Maura Hoyt MD - 01/05/2024 2:00 PM EDT Assessment/Plan Dry Eyes OU -- Environmental changes to minimize dryness and exposure and the use of artificial tears were recommended. [id number] Hospital Discharge instructions Patient Education 10/13/2023 13:39:08 Kidney Stones, Xdtz-so-Gdyl Kidney Stones Kidney stones are rock-like masses [...] Follow these instructions at home: Medicines Take lkkq-lkq-hgjysfj and prescription medicines only as told by [...] provider. Document Revised: 12/31/2021 Document Reviewed: 12/31/2021 [employer] Patient Education 2022 [employer]. Follow Up Care 09/17/2023 08:40:02 With:SHANNON SALGUERO, Roman Mitchell, URL Address: [facility] [address] , [place] [address] [phone] When: Unknown [facility] 05-08-2024 Hospital Discharge instructions Patient Education 09/17/2023 [...] Follow these instructions at home: Medicines Take kxwa-zbh-plplfti and prescription medicines only as told by [...] provider. Document Revised: 08/07/2022 Document Reviewed: 08/07/2022 [employer] Patient Education 2022 [employer]. Follow Up Care 09/11/2023 08:49:49 With:SHANNON SALGUERO, Roman Mitchell, URL Address: [facility] [address] , [place] [address]- When: Unknown [facility] 09-22-2023 Evaluation note* Encounter Date Diagnosis Assessment Notes Treatment Notes Treatment Clinical Notes Jan, Seasonal allergic rhinitis, unspecified trigger (ICD-10 - J30.2) [facility] Other 09-01-2023 Evaluation note* Encounter Date Diagnosis Assessment Notes Treatment Notes Treatment Clinical Notes Jan, Piriformis syndrome of left side (ICD-10 - G57.02) Unable to add more tramadol - likely has pain clinic w [place] [facility]. PT order printed. Add steroids. Also gave copies of home exercises. [facility] Other 06-19-2023 Evaluation note* Encounter Date Diagnosis [...] - order handwritten and given to pt [employer] Other 04-27-2023 NoteCONSULTATION CONSULTATION DATE: 09/05/2022 TO: [...] our patients to inform us about any [id number] medications or herbal remedies/nutritional supplements/alternative remedies. 2. [...] treatment options with their primary care provider.[facility] [id number] Note CONSULTATION PROCEDURE DATE: 12/25/2021 PREOPERATIVE DIAGNOSIS: [...] procedurally range of motion exercises are performed.[facility] 12-19-2021 NoteCONSULTATION CONSULTATION DATE: 12/19/2021 [...] where she was seen by the physician junior sales assistant in the office and received [...] plan of care, to be contacted LARISA.[facility] Future Appointments Appointment Date:10/13/2023 12:15:00 PM Scheduled Provider:Roman GUAN MD Location:[facility] Appointment Type:URO Office Visit [facility] [place] Evaluation + Plan note Future Appointments Appointment Date:01/28/2025 10:15:00 AM Scheduled Provider:Roman GUAN MD Location:[facility] Appointment Type:URO Office Visit [facility] evaluation noteNo [facility] Other Evaluation noteNo assessment information available [facility] Work Phone: evaluation note* Diagnosis Onset Date Resolution Status Right lumbar pain acute [facility] Work Phone: evaluation note* Diagnosis Onset Date Resolution Status Right lumbar pain acute Medicare annual wellness visit, subsequent acute Nephrolithiasis acute Screening mammogram for breast cancer acute [facility] Work Phone: Evaluation note* Diagnosis Onset Date Resolution Status Right lumbar pain acute Medicare annual wellness visit, subsequent acute Nephrolithiasis acute Screening mammogram for breast cancer acute Laceration of left lower leg without complication acute Lumbar back pain acute [facility] Work Phone: Evaluation note* Diagnosis Dry eyes- Primary 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), bilateral Unspecified after-cataract [facility] Dry eyes- Primary 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), bilateral Unspecified after-cataract [facility] N[facility]ative - Reported* Type Description Date Medical History migraine headache Medical History dizziness Medical History tremors Surgical History hysterectomy Surgical History bunionectomy Surgical History stapedectomy Hospitalization History see above [facility] Other Hospital course Narrative No data available for this section [facility] [place] Hospital Discharge instructionsAmbulatory Orders* Referral to PT / OT / Speech (PT/OT/SP) Location: None Selected [facility] Work Phone: Hospital Discharge instructionsAmbulatory Orders* Referral to Orthopedic Surgery Location: None Selected [facility] Work Phone: Hospital Discharge instructions No data available for this section [facility] [place] progress note No data available for this section [facility] [place] Reason for referral (narrative)No reason for referral information available[facility]: Summary Purpose Family History No [...] 11:4 4am fu after PT-doing pt in [place] September 15, 2024 8:13am Reason for Visit Admit Date Seasonal allergic rhinitis August 18 11:44am Chief Complaint Admit Date Allergy Shot August 18, 2024 11:4 4am fu after PT-doing pt in [place] September 15, 2024 8:13am back pain October [...] and content) DATE CREATED AUTHOR 10/18/2022 [facility] DATE CREATED AUTHOR AUTHOR'S ORGANIZ ATION 09/19/2024 [facility] DATE CREATED AUTHOR AUTHOR'S ORGANIZ ATION 02/02/2025 [facility] DATE CREATED AUTHOR AUTHOR'S ORGANIZ ATION 02/04/2025 [facility] DATE CREATED AUTHOR AUTHOR'S ORGANIZ ATION 02/13/2025 [facility] DATE CREATED AUTHOR AUTHOR'S ORGANIZ ATION 02/15/2025 [facility] EPIC REASON FOR VISIT (unrecogniz ed section and content) Reason Comments Eye Exam [facility] Teams (unrecognized sec tion and content) Team Status: Active Member Role Status Dates Ruba Higgins MD Primary Care Provider Active Team [...] March 16, 2024 End: March 16, 2024 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 [address] [place] [address] PCP - General 12/25/22 Goals (unrecognized section and content) Goals may [...] BE BASED ON THE PRIMARY CLINICAL RECORDS. [facility]. provides no warranty or guarantee of the accuracy or completeness of information in this document.
== END 2025-02-15 09:13 | disposition home or self-care (01) ==
LOC: CT 09:12
PROVIDERS: PCP Family Medicine; Visit Provider Urology
DX: N20.0 Calculus of kidney (principal); N28.1 Cyst of kidney, acquired; K57.90 Diverticulosis of intestine, part unspecified, without perforation or abscess without bleeding; M41.85 Other forms of scoliosis, thoracolumbar region
CPT/HCPCS: 74176

== ENCOUNTER 2025-02-25 10:22 | Outpatient (OUT) | payer MEDICARE, SELFPAY ==
--- OUTSIDE RECORDS SUMMARY | 2025-02-25 10:24 | XMS_ITS | Clinical Summary ---
Author Organization [facility] Healthcare Address [address] [place] [address] Care Team Providers Care Manager Package Name Role Phone Valeriy Guajardo MD Primary Care Provider [phone] Allergies No known active allergies Medications traMADol [...] Description 02/10/2025 1:30 PM EDT Office Visit [facility] [address] [place] [phone] Maura Hoyt MD Dry eyes (Primary Dx); PCO (posterior capsular opacification), bilateral 02/10/2025 Bamboo flowsheet [facility] [address] [place] [phone] Maura Hoyt MD 02/10/2025 Travel from Last [...] 65+ Ye ars (2 of 2 - PCV20 or PCV21) 03/10/2019 03/10/2018 Influenza Vaccine (#1) 2025 4, 02/14/2023, 02/28/2022, Additional history exists Insurance [employer] Care Teams Manager Package Relationship Specialty Start Date End Date Valeriy Guajardo MD [address] [place] [address], [address] [place] [address] PCP - General 12/25/22
--- OUTSIDE RECORDS SUMMARY | 2025-02-25 10:26 | XMS_ITS | CCD ---
Author Organization [facility] Care Team Providers [facility] Name Role Phone GISELA, DR RUBA Willis Primary Care Unavailable BECKER ., DR VALENTINA Rothman Attending Unavailable BECKER ., DR VALENTINA Rothman Admitting Unavailable HIGGINS, DR RUBA Willis Primary Care Unavailable BECKER ., DR VALENTINA Rothmna Attending Unavailable BECKER ., DR VALENTINA Rothman Admitting Unavailable HIGGINS, DR RUBA Willis Primary Care Unavailable BECKER ., DR VALENTINA Rothman Attending Unavailable BECKER ., DR VALENTINA Rothman Admitting Unavailable BECKER ., DR VALENTINA Rothman Admitting Unavailable BECKER ., DR VALENTINA Rothman Attending Unavailable HIGGINS, DR RUBA Willis Consulting Unavailable HIGGINS, DR URBA Willis Primary Care Unavailable BECKER ., DR VALENTINA Rothman Consulting Unavailable LAKSHMIPATHY ., NARPAULINA Admitting Jessy vailable LAKSHMIPATHY ., NARENDPATEL Consulting Jessy vailable LAKSHMIPATHY ., AJ Attending Jessy vailable HIGGINS, DR RUBA Willis Primary Care Unavailable HIGGINS, DR RUBA Willis Primary Care Unavailable HIGGINS, DR RUBA Willis Attending Unavailable SCANDIA, DR MINE Barriga Consulting Unavailable HIGGINS, DR RUBA Willis Admitting Unavailable HIGGINS, DR RUBA Willis Consulting Unavailable HIGGINS, DR RUBA Willis Attending Unavailable HIGGINS, DR RUBA Willis Admitting Unavailable BIRGIT, DR PB Mitchell Consulting Unavailable HIGGINS, DR RUBA Willis Primary Care Unavailable HIGGINS, DR RUBA Willis Consulting Unavailable GISELA, DR RUBA Willis Primary Care Unavailable LAKSHMIPATHY ., NARENDPATEL Attending Jessy vailable LAKSHMIPATHY ., NARENDLOWELLATH Admitting Jessy vailable LAKSHMIPATHY ., NARENDLOWELLATH Consulting Jessy vailable RASTEGAR, ISAEL Consulting Unavailable GISELA, DR RUBA Willis Primary [...] Higgins Unavailable RUBA HIGGINS Primary Care Physician [phone] Valeriy Higgins MD Primary Care Provider [phone] Community, Outreach Admitting Unavailable Community, Outreach Attending Unavailable Ruba Higgins Primary Care Unavailable Ruba Higgins MD Primary Care Provider Ruba Higgins MD Attending Provider Jae Fuentes MD Attending Provider Gisela SALGUERO, Ruba Stiles Primary Care Unava ilable Toney SALGUERO, Suleiman uGzman Attending Unavaila Sarah Pichardo MD Consulting Unavaamarjit hu Digzaina, Mark Vargas Admitting Unavailable Diglio, Mark Alicia Consulting Unavailable Kim SENIOR CONTROLLER-OPTICAL INSTRUMENT REPAIRER, Katty Tiera Consulting Unavailable Jae Alaniz MD Attending UnavailRuba Dempsey MD Primary Care Unava ilable Vane SALGUERO, Dulce Cooper Attending Unavailable Roman GUAN Attending Unavailable DIGLIO, MARK Attending Unavailable DIGLIO, MARK Admitting Unavailable DIGLIO, MARK Referring Unavailable Roman GUAN R Attending Unavailable Roman GUAN R Admitting Unavailable Roman GUAN Attending Unavailable Valeriy Higgins MD Primary Care Provider [phone] MAURA HOYT Attending Unavailable Roman GUAN Attending Unavailable Ruba Higgins MD Primary Care Provider [phone] Ruba Higgins MD Attending Provider Allergies Allergy Classification Reported Allergen(s) Allergy Type Date of Onset Reaction(s) Facility (1 source) No Known Medication Allergies; Translations: [No Known Medication Allergies] Propensity to adverse reactions to drug (disorder) [facility] Repository Medications Current Medications Medication Drug Class(es) Dates Sig (Normalized) Sig (Original) atenolol 50 mg oral tablet (20 sources) beta-Adrenergic Tera Start: 03-30-2024 End: 02-22-2025 take 1 tablet by mouth once daily Atenolol 50 mg tablet Active 0 .ROUTE .COMPLEX 90 February 22, 2025 9:02am TAKE 1 TABLET BY MOUTH EVERY DAY FOR 90 DAYS Complies with drug therapy Start: 09-28-2022 End: 03-30-2024 take 1 tablet by mouth once daily Atenolol 50 mg tablet Discontinued 50 MG PO Daily September 29, 2023 12:00am March 30, 2024 5:39pm baclofen 10 mg oral tablet (4 sources) [...] take 1 tablet by christian once daily [place]-3 Fish Oil 1 tab, Oral, Daily, Refill(s) 0, Prophylaxis Start Date: 02/19/10 Status: Ordered Repeat number: 1 Start: 02-19-2010 take 1 tablet by christian th once daily [place]-3 Fish Oil 1 tab, Oral, Daily, Refill(s) [...] Start: 02-19-2010 take 1 capsule by mo [facility] once daily Multiple Vitamins oral capsule [...] 2024 2:41pm take 1 tablet by christian four times daily at mealtime as needed Diclofenac Potassium 25 MG 1 tablet with food or milk as needed Orally Four times a day Active meloxicam 7.5 mg oral tablet (18 sources) Nonsteroidal Anti-inflammatory Drug Start: 10-02-2023 End: 04-05-2024 take 1 tablet by mouth once daily Meloxicam 7.5 mg tablet Discontinued 7.5 MG PO Daily November 18, 2023 11:23am April 05, 2024 11:24am methylPREDNISolone 4 mg oral tablet (12 sources) Corticosteroid Start: 10-14-2024 End: 12-28-2024 Methylprednisolone [...] succinate 25 mg extended release oral capsule (17 sources) beta-Adrenergic Tera Start: 09-29-2023 End: 09-30-2023 take 1 capsule by mouth once daily Metoprolol Succinate 25 mg capsule,sprinkle,ER 24hr Discontinued 25 MG PO Daily September 29, 2023 12:00am September 30, 2023 2:41pm Metoprolol Succi olena 25 MG 1 tablet once a day Active mupirocin 0.02 mg/mg topical ointment (9 sources) RNA Synthetase Inhibitor Antibacterial Start: 11-18-2023 End: 04-05-2024 Mupirocin 2 % ointment Discontinued 1 APPLIC TOPICAL Twice daily November 18, 2023 12:00am April 05, 2024 11:43am tiZANidine 4 mg oral tablet (20 sources) Central alpha-2 Adrenergic Agonist Start: 05-03-2024 [...] Onset: 10-02-2022 Episodic Open wounds of extremities (9 sources) Laceration of left lower leg; Translations: [Laceration without foreign body, left lower leg, initial encounter] 12-03-2023 Episodic Open wounds of extremities (3 sources) Tear of skin; Translations: [Laceration without [...] of bilateral lacrimal glands] 01-05-2024 Episodic Other hereditary and degenerative nervous system [...] conditions (not mental disorders or infectious disease) (20 sources) Encounter for screening mammogram for malignant neoplasm of breast; Translations: [Patient encounter status] Onset: 11-07-2021 Episodic Other skin disorders (5 sources) Actinic keratosis; Translations: [Actinic keratosis] Episodic Other upper respiratory disease (15 sources) Seasonal allergic rhinitis; Translations: [Other seasonal [...] Oxalate, Dihydrate 90 % Invalid Interpretation Code [facility] Comment on above: Performed By: #### 1 [id number] #### [facility] [address] [place] [address] CA Oxalate, Monohydr 5 % Invalid Interpretation Code [facility] Comment on above: Performed By: #### 1 [id number] #### [facility] [address] [place] [address] Color (U) Brown Invalid Interpretation Code [facility] Comment on above: Performed By: #### 1 [id number] #### [facility] [address] [place] [address] Hydroxyapatite: 5 % Invalid Interpretation Code [facility] Comment on above: Result Comment: [facility] [address] [id number] PhD Gamaliel Barriga Performed By: #### 1 [id number] #### [facility] [address] [place] [address] Size: 6x4 Invalid Interpretation Code [facility] Comment on above: Result Comment: Sing le piece received. Performed By: #### 1 [id number] #### [facility] [address] [place] [address] Stone Source Comment Invalid Interpretation Code [facility] Comment on above: Result Comment: Not provided Performed By: #### 1 [id number] #### [facility] [address] [place] [address] Weight Calculus Analysis 65 mg Invalid Interpretation Code [facility] Comment on above: Performed By: #### 1 [id number] #### [facility] [address] [place] [address] Ambulatory Visit Summaryon 0 01-28-2025 Ambulatory Visit [...] capsule) naproxen (Aleve) omega-3 polyunsaturated fatty acids ([place]-3 Fish Oil) zolmitriptan (Zomig 5 mg oral [...] with SHANNON SALGUERO, JJ Rucker When: Where: [address] [place] [phone]- Medications What How Much When Instructions Unchanged [...] or concerns Unchanged omega-3 polyunsaturated fatty acids ([place]-3 Fish Oil) 1 tab By Mouth Every [...] Place a (more content not included)... Normal [facility] Ambulatory Visit Summary Ambulatory Visi t [...] capsule) naproxen (Aleve) omega-3 polyunsaturated fatty acids ([place]-3 Fish Oil) zolmitriptan (Zomig 5 mg oral [...] with SHANNON SALGUERO, JJ Rucker When: Where: [address] [place], [place] [id number]- Medications What How Much When Instructions Unchanged [...] or concerns Unchanged omega-3 polyunsaturated fatty acids ([place]-3 Fish Oil) 1 tab By Mouth Every [...] Place a (more content not included)... Normal [facility] Urology Office/Clinic Noteon 01-28-2025 Urology Office/Clinic Note [...] pass, required surgery 2 years ago in [place], [place]. Was told at this time that [...] Risks of ESWL discussed. -Schedule KADEN at [facility], pt to be called with results, consider ESWL if stone is present on KADEN -Complete met w/up in the future (will proceed with met w/up if stone is not visible on ultrasound) 2. Ureteral stone (N20.1: Calculus of ureter) CT AP wo con 10/14/23 (due to pain) [facility] - mild left pelviectasis. 0.5 cm L UVJ stone. Pt was able to pass stone, brought with her today. Will send for analysis. -See #1 Follow-up With When Contact Information SHANNON SALGUERO, Roman Mitchell, URL [address] [place], [place] [id number]- Additional Instructions: F/up dependent on KADEN findings [...] Vitamins oral capsule, 1 cap(s), Oral, Daily [place]-3 Fish Oil, 1 tab, Oral, Daily Osteo Bi-Flex Zomig 5 mg oral tablet, 1 tab(s), Oral, Once, PRN Allergies No Known Allergies Social History Alcohol - Denies Alcohol Use, 02/19/2010 Substance Abuse - Denies Substance Abuse, 02/19/2010 T (more content not included)... Normal [facility] Comment on above: Result Comment: Elec tronically Signed By: Roman GUAN MD\.br\Date and Time Signed: 01/28/25 10:59 EDT\.br\Electronically Co-Signed By: Yuliana Finnegan\.br\Date and Time Co-Signed: 01/28/25 10:54 EDT\.br\Electronically Co-Signed By: Yuliana Finnegan\.br\Date and Time Co-Signed: 01/28/25 10:55 EDT Wil Acevedo 01-10-2025 Wil Vogt ------- Final No growth at 5 days. [facility] Comment on above: Performed By: #### B [facility] #### [address] [address] Wil Acevedo 01-09-2025 Wil Vogt WAS ABLE [...] <=2 V Vancomycin S 1 V Normal [facility] Comment on above: Performed By: #### B [facility] #### [facility] (DEFAULT) [address] [place] [address] [facility] [address] [place] [address] .eGFRon 01-07-2025 GFR/1.73 sq M.predicted MDRD (S/P/Bld) [Vol rate/Area] mL/min/{1.73_m2} Normal >=60 [facility] Comment on above: Result Comment: [facility] have implemented the eGFR calculation approach [...] Age = years Performed By: #### B [facility] #### [facility] ([facility]) [address] [place] [address] [facility] [address] [place] [address] Basic Metabolic Profileon Anion gap [Moles/Vol] 4 mmol/L Normal 4-12 [facility] Comment on above: Performed By: #### C [id number] ####[facility] [place] [address] BUN Crea Ratio 9.2 ratio Low 15.0-25.0 [facility] Comment on above: Performed By: #### C [id number] ####[address] [address] Calcium [Mass/Vol] 8.0 mg/dL Low 8.6-10.3 [facility] Comment on above: Performed By: #### C [id number] ####[address] [address] Chloride [Moles/Vol] 105 mmol/L Normal 98-107 [facility] Comment on above: Performed By: #### C [id number] ####[address] [address] CO2 [Moles/Vol] 30 mmol/L Normal 21-31 [facility] Comment on above: Performed By: #### C [id number] ####[address] [address] Creatinine [Mass/Vol] 0.65 mg/dL Normal 0.60-1.20 [facility] Comment on above: Performed By: #### C [id number] ####[address] [address] Glucose [Mass/Vol] 95 mg/dL Normal 70-99 [facility] Comment on above: Performed By: #### C [id number] ####[address] [address] Potassium [Moles/Vol] 3.7 mmol/L Normal 3.4-4.8 [facility] Comment on above: Performed By: #### C [id number] ####[address] [address] Sodium [Moles/Vol] 139 mmol/L Normal 136-145 [facility] Comment on above: Performed By: #### C [id number] ####[address] [address] Urea nitrogen [Mass/Vol] 6 mg/dL Low 7-25 [facility] Comment on above: Performed By: #### C [id number] ####[facility] [place] [address] CBC w/ Diffon 01-07-2025 Erythrocyte distribution width (RBC) [Ratio] 13.0 % Normal 11.6-14.8 [facility] Comment on above: Performed By: #### B [facility] #### [facility] ([facility]) [address] [facility] [address] [facility] [address] [facility] [address] Hematocrit (Bld) [Volume fraction] 22.6 % Low 36.0-46.0 [facility] Comment on above: Performed By: #### B LDC #### [facility] ([facility]) [address] [facility] [address] [facility] [address] [place] [address] Hemoglobin (Bld) [Mass/Vol] 7.8 g/dL Low 12.0-16.0 [facility] Comment on above: Performed By: #### B LDC #### [facility] ([facility]) [address] [facility] [address] [facility] [address] [facility] [address] MCH (RBC) [Entitic mass] 32.2 pg Normal 27.0-35.0 [facility] Comment on above: Performed By: #### B LDC #### [facility] ([facility]) [address] [facility] [address] [facility] [address] [facility] [address] MCHC 34.5 % Normal 31.0-37.0 [facility] Comment on above: Performed By: #### B LDC #### [facility] ([facility]) [address] [facility] [address] [facility] [address] [facility] [address] MCV (RBC) [Entitic vol] 93.4 fL Normal 80.0-100.0 [facility] Comment on above: Performed By: #### B LDC #### [facility] ([facility]) [address] [facility] [address] [facility] [address] [facility] [address] Platelet 144 x10*3/mcL Low 150-450 [facility] Comment on above: Performed By: #### B LDC #### [facility] ([facility]) [address] [facility] [address] [facility] [address] [facility] [address] Platelet mean volume (Bld) [Entitic vol] 8.1 fL Normal 6.7-10.6 [facility] Comment on above: Performed By: #### B LDC #### [facility] ([facility]) [address] [facility] [address] [facility] [address] [facility] [address] RBC 2.42 x10*6/mcL Low 3.80-5.20 [facility] Comment on above: Performed By: #### B LDC #### [facility] ([facility]) [address] [facility] [address] [facility] [address] [facility] [address] WBC 7.0 x10*3/mcL Normal 4.5-11.0 [facility] Comment on above: Performed By: #### B LDC #### [facility] ([facility]) [address] [facility] [address] [facility] [address] [facility] [address] Diff Autoon 01-07-2025 Baso Absolute 0.0 x10*3/mcL Normal 0.0-0.2 [facility] Comment on above: Performed By: #### B LDC #### [facility] ([facility]) [address] [facility] [address] [facility] [address] [facility] [address] Basophils/100 WBC (Bld) 0.4 % Normal 0.0-1.5 [facility] Comment on above: Performed By: #### B LDC #### [facility] ([facility]) [address] [facility] [address] [facility] [address] [facility] [address] Eos Absolute 0.1 x10*3/mcL Normal 0.0-0.4 [facility] Comment on above: Performed By: #### B LDC #### [facility] ([facility]) [address] [facility] [address] [facility] [address] [facility] [address] Eosinophils/100 WBC (Bld) 1.9 % Normal 0.0-5.4 [facility] Comment on above: Performed By: #### B LDC #### [facility] ([facility]) [address] [facility] [address] [facility] [address] [facility] [address] Lymph Absolute 1.1 x10*3/mcL Normal 1.0-4.8 [facility] Comment on above: Performed By: #### B LDC #### [facility] ([facility]) [address] [facility] [address] [facility] [address] [facility] [address] Lymphocytes/100 WBC (Bld) 15.3 % Low 27.2-40.8 [facility] Comment on above: Performed By: #### B LDC #### [facility] ([facility]) [address] [facility] [address] [facility] [address] [facility] [address] [place] Absolute 1.0 x10*3/mcL Normal 0.1-1.1 [facility] Comment on above: Performed By: #### B LDC #### [facility] ([facility]) [address] [facility] [address] [facility] [address] [facility] [address] Monocytes/100 WBC (Bld) 14.9 % High 3.7-11.9 [facility] Comment on above: Performed By: #### B LDC #### [facility] ([facility]) [address] [facility] [address] [facility] [address] [facility] [address] Neutro Absolute 4.7 x10*3/mcL Normal 1.8-7.7 [facility] Comment on above: Performed By: #### B LDC #### [facility] (DEFAULT) [address] [place] [address] [facility] [address] [place] [address] Neutro Auto 67.5 % Normal 47.2-70.8 [facility] Comment on above: Performed By: #### B LDC #### [facility] ([facility]) [address] [place] [address] [facility] [address] [place] [address] Inpatient Clinical Summaryon 01-07-2025 Inpatient Clinical Summary [address] [address] [phone] [address] [phone] Clinical Summary Person Information Name: Ninfa Lea Age: 84 Years : 1940 Sex: Female PCP: Ruba Higgins MD Marital Status: Phone: PCP: Race: White Ethnicity: Not or Language: Pashto Visit Id: Visit Reason: Speciality: Acuity: Enc Type: Observation Med Service: Orthopedics Arrival: 01/04/2025 09:00:39 Discharge: Dispo Type: Address: [address] [place] [id number] Preferred Communication Mode: Verbal Preferred Language: Pashto Discharge Diagnosis: Spinal stenosis, lumbar region Discharged [...] EDT, *Snf - Eval & Treat P: [phone] F: , 01/06/25 14:10:00 EDT Home with Home Health 01/06/25 14:08:00 EDT, *Snf - Eval & Treat P: [phone] F: , 01/06/25 14:08:00 EDT Treatment and [...] range between ( 27.2 and 40.8 ) [place] Auto: 14.9 % -- Normal range between [...] range between ( 36.0 and 46.0 ) [place] Absolute: 1.0 x10 MCH: 32.2 pg -- [...] range between (more content not included)... Normal [facility] Orthopedic Progress Noteon 0 01-07-2025 [...] HH for drain care Electronically signed by Allan MCDONALD Mark Dune 01/07/25 06:10 EDT Normal [facility] .eGFRon 01-06-2025 GFR/1.73 sq M.predicted MDRD (S/P/Bld) [Vol rate/Area] mL/min/{1.73_m2} Normal >=60 [facility] Comment on above: Result Comment: [facility] have implemented the eGFR calculation approach [...] years Performed By: #### B LDC #### [facility] (DEFAULT) [address] [place] [address] [facility] [address] [place] [address] Basic Metabolic Profileon Anion gap [Moles/Vol] 6 mmol/L Normal 4-12 [facility] Comment on above: Performed By: #### B LDC #### [facility] ([facility]) [address] [place] [address] [facility] [address] [place] [address] BUN Crea Ratio 14.7 ratio Low 15.0-25.0 [facility] Comment on above: Performed By: #### B LDC #### [facility] ([facility]) [address] [facility] [address] [facility] [address] [facility] [address] Calcium [Mass/Vol] 7.8 mg/dL Low 8.6-10.3 [facility] Comment on above: Performed By: #### B LDC #### [facility] ([facility]) [address] [facility] [address] [facility] [address] [facility] [address] Chloride [Moles/Vol] 106 mmol/L Normal 98-107 [facility] Comment on above: Performed By: #### B LDC #### [facility] ([facility]) [address] [facility] [address] [facility] [address] [facility] [address] CO2 [Moles/Vol] 27 mmol/L Normal 21-31 [facility] Comment on above: Performed By: #### B LDC #### [facility] ([facility]) [address] [facility] [address] [facility] [address] [facility] [address] Creatinine [Mass/Vol] 0.68 mg/dL Normal 0.60-1.20 [facility] Comment on above: Performed By: #### B LDC #### [facility] ([facility]) [address] [facility] [address] [facility] [address] [facility] [address] Glucose [Mass/Vol] 96 mg/dL Normal 70-99 [facility] Comment on above: Performed By: #### B LDC #### [facility] ([facility]) [address] [facility] [address] [facility] [address] [facility] [address] Potassium [Moles/Vol] 3.8 mmol/L Normal 3.4-4.8 [facility] Comment on above: Performed By: #### B LDC #### [facility]) [address] [facility] [address] [facility] [address] [facility] [address] Sodium [Moles/Vol] 139 mmol/L Normal 136-145 [facility] Comment on above: Performed By: #### B LDC #### [facility] ([facility]) [address] [facility] [address] [facility] [address] [facility] [address] Urea nitrogen [Mass/Vol] 10 mg/dL Normal 7-25 [facility] Comment on above: Performed By: #### B LDC #### [facility] ([facility]) [address] [facility] [address] [facility] [address] [place] [address] CBC w/ Diffon 01-06-2025 Erythrocyte distribution width (RBC) [Ratio] 13.0 % Normal 11.6-14.8 [facility] Comment on above: Performed By: #### C BC ####[address] [address] Hematocrit (Bld) [Volume fraction] 24.9 % Low 36.0-46.0 [facility] Comment on above: Performed By: #### C BC ####[address] [address] Hemoglobin (Bld) [Mass/Vol] 8.3 g/dL Low 12.0-16.0 [facility] Comment on above: Performed By: #### C BC ####[address] [address] MCH (RBC) [Entitic mass] 31.9 pg Normal 27.0-35.0 [facility] Comment on above: Performed By: #### C BC ####[address] [address] MCHC 33.3 % Normal 31.0-37.0 [facility] Comment on above: Performed By: #### C BC ####[address] [address] MCV (RBC) [Entitic vol] 95.8 fL Normal 80.0-100.[address] [facility] Comment on above: Performed By: #### C BC ####[address] [address] Platelet 94 x10*3/mcL Low 150-450 [facility] Comment on above: Performed By: #### C BC ####[place] [id number] Platelet mean volume (Bld) [Entitic vol] 8.6 fL Normal 6.7-10.6 [facility] Comment on above: Performed By: #### C BC ####[place] [id number] RBC 2.60 x10*6/mcL Low 3.80-5.20 [facility] Comment on above: Performed By: #### C BC ####[place] [id number] WBC 8.3 x10*3/mcL Normal 4.5-11.0 [facility] Comment on above: Performed By: #### C BC ####[place] [id number] Diff Autoon 01-06-2025 Baso Absolute 0.0 x10*3/mcL Normal 0.0-0.2 [facility] Comment on above: Performed By: #### . Automated Diff ####[address] [address] Basophils/100 WBC (Bld) 0.2 % Normal 0.0-1.[address] [facility] Comment on above: Performed By: #### . Automated Diff ####[place] [id number] Eos Absolute 0.1 x10*3/mcL Normal 0.0-0.4 [facility] Comment on above: Performed By: #### . Automated Diff ####[place] [id number] Eosinophils/100 WBC (Bld) 0.6 % Normal 0.0-5.4 [facility] Comment on above: Performed By: #### . Automated Diff ####[address] [address] Lymph Absolute 1.2 x10*3/mcL Normal 1.0-4.8 [facility] Comment on above: Performed By: #### . Automated Diff ####[address] [address] Lymphocytes/100 WBC (Bld) 14.5 % Low 27.2-40.8 [facility] Comment on above: Performed By: #### . Automated Diff ####[address] [address] [place] Absolute 1.1 x10*3/mcL Normal 0.1-1.1 [facility] Comment on above: Performed By: #### . Automated Diff ####[address] [address] Monocytes/100 WBC (Bld) 13.4 % High 3.7-11.9 [facility] Comment on above: Performed By: #### . Automated Diff ####[address] [address] Neutro Absolute 5.9 x10*3/mcL Normal 1.8-7.7 [facility] Comment on above: Performed By: #### . Automated Diff ####[address] [address] Neutro Auto 71.3 % High 47.2-70.8 [facility] Comment on above: Performed By: #### . Automated Diff ####[address] [address] Orthopedic Progress Noteon 0 01-06-2025 Orthopedic Progress [...] Pb Ko PA-C 01/06/25 06:56 EDT Normal [facility] .eGFRon 01-05-2025 Estimated GFR 59 mL/min/1.73m? Low >=60 [facility] Comment on above: Order Comment: Order added by Discern rule Result Comment: [facility] have implemented the eGFR calculation approach [...] = years Performed By: #### E GFR ####[facility] [place] [address] Basic Metabolic Profileon Anion gap [Moles/Vol] 8 mmol/L Normal 4-12 [facility] Comment on above: Performed By: #### B LDC #### [facility] (DEFAULT) [address] [place] [address] [facility] [address] [place] [address] BUN Crea Ratio 17.0 ratio Normal 15.0-25.0 [facility] Comment on above: Performed By: #### B LDC #### [facility] (DEFAULT) [address] [place] [address] [facility] [address] [place] [address] Calcium [Mass/Vol] 7.9 mg/dL Low 8.6-10.3 [facility] Comment on above: Performed By: #### B LDC #### [facility] (DEFAULT) [address] [place] [address] [facility] [address] [place] [address] Chloride [Moles/Vol] 103 mmol/L Normal 98-107 [facility] Comment on above: Performed By: #### B LDC #### [facility] (DEFAULT) [address] [facility] [address] [facility] [address] [facility] [address] CO2 [Moles/Vol] 24 mmol/L Normal 21-31 [facility] Comment on above: Performed By: #### B LDC #### [facility] (DEFAULT) [address] [facility] [address] [facility] [address] [facility] [address] Creatinine [Mass/Vol] 0.94 mg/dL Normal 0.60-1.20 [facility] Comment on above: Performed By: #### B LDC #### [facility] (DEFAULT) [address] [facility] [address] [facility] [address] [facility] [address] Glucose [Mass/Vol] 146 mg/dL High 70-99 [facility] Comment on above: Performed By: #### B LDC #### [facility] (DEFAULT) [address] [facility] [address] [facility] [address] [facility] [address] Potassium [Moles/Vol] 4.5 mmol/L Normal 3.4-4.8 [facility] Comment on above: Performed By: #### B LDC #### [facility] (DEFAULT) [address] [facility] [address] [facility] [address] [facility] [address] Sodium [Moles/Vol] 135 mmol/L Low 136-145 [facility] Comment on above: Performed By: #### B LDC #### [facility] (DEFAULT) [address] [facility] [address] [facility] [address] [facility] [address] Urea nitrogen [Mass/Vol] 16 mg/dL Normal 7-25 [facility] Comment on above: Performed By: #### B LDC #### [facility] (DEFAULT) [address] [facility] [address] [facility] [address] [facility] [address] CBC w/ Diffon 01-05-2025 Erythrocyte distribution width (RBC) [Ratio] 13.1 % Normal 11.6-14.8 [facility] Comment on above: Performed By: #### B LDC #### [facility] (DEFAULT) [address] [facility] [address] [facility] [address] [facility] [address] Hematocrit (Bld) [Volume fraction] 29.0 % Low 36.0-46.0 [facility] Comment on above: Performed By: #### B LDC #### [facility] (DEFAULT) [address] [facility] [address] [facility] [address] [facility] [address] Hemoglobin (Bld) [Mass/Vol] 9.9 g/dL Low 12.0-16.0 [facility] Comment on above: Performed By: #### B LDC #### [facility] (DEFAULT) [address] [facility] [address] [facility] [address] [facility] [address] MCH (RBC) [Entitic mass] 32.3 pg Normal 27.0-35.0 [facility] Comment on above: Performed By: #### B LDC #### [facility] (DEFAULT) [address] [facility] [address] [facility] [address] [facility] [address] MCHC 34.0 % Normal 31.0-37.0 [facility] Comment on above: Performed By: #### B LDC #### [facility] (DEFAULT) [address] [facility] [address] [facility] [address] [facility] [address] MCV (RBC) [Entitic vol] 95.0 fL Normal 80.0-100.0 [facility] Comment on above: Performed By: #### B LDC #### [facility] (DEFAULT) [address] [facility] [address] [facility] [address] [facility] [address] Platelet 149 x10*3/mcL Low 150-450 [facility] Comment on above: Performed By: #### B LDC #### [facility] (DEFAULT) [address] [facility] [address] [facility] [address] [facility] [address] Platelet mean volume (Bld) [Entitic vol] 8.3 fL Normal 6.7-10.6 [facility] Comment on above: Performed By: #### B LDC #### [facility] (DEFAULT) [address] [facility] [address] [facility] [address] [facility] [address] RBC 3.05 x10*6/mcL Low 3.80-5.20 [facility] Comment on above: Performed By: #### B LDC #### [facility] (DEFAULT) [address] [facility] [address] [facility] [address] [facility] [address] WBC 8.7 x10*3/mcL Normal 4.5-11.0 [facility] Comment on above: Performed By: #### B LDC #### [facility] (DEFAULT) [address] [facility] [address] [facility] [address] [place] [address] Consultation Note - Generico n 01-05-2025 Consultation [...] no crepitations or wheeze. Breathing nonlabored. No undraped artist model muscle use or retractions. On room air. [...] commands. Psyc (more content not included)... Normal [facility] Diff Autoon 01-05-2025 Baso Absolute 0.0 x10*3/mcL Normal 0.0-0.2 [facility] Comment on above: Performed By: #### B LDC #### [address] [address] Basophils/100 WBC (Bld) 0.2 % Normal 0.0-1.5 [facility] Comment on above: Performed By: #### B LDC #### [address] [address] Eos Absolute 0.0 x10*3/mcL Normal 0.0-0.4 [facility] Comment on above: Performed By: #### B LDC #### [address] [address] Eosinophils/100 WBC (Bld) 0.1 % Normal 0.0-5.4 [facility] Comment on above: Performed By: #### B LDC #### [address] [address] Lymph Absolute 0.9 x10*3/mcL Low 1.0-4.8 [facility] Comment on above: Performed By: #### B LDC #### [address] [address] Lymphocytes/100 WBC (Bld) 10.6 % Low 27.2-40.8 [facility] Comment on above: Performed By: #### B LDC #### [address] [address] [place] Absolute 0.9 x10*3/mcL Normal 0.1-1.1 [facility] Comment on above: Performed By: #### B LDC #### [address] [address] Monocytes/100 WBC (Bld) 10.2 % Normal 3.7-11.[address] [facility] Comment on above: Performed By: #### B LDC #### [facility] [address] [place] [address] Neutro Absolute 6.9 x10*3/mcL Normal 1.8-7.7 [facility] Comment on above: Performed By: #### B LDC #### [facility] [address] [place] [address] Neutro Auto 78.9 % High 47.2-70.8 [facility] Comment on above: Performed By: #### B LDC #### [address] [address] HSTI Randomon 01-05-2025 hs Troponin I 561 ng/L Critically abnormal 0-15 [facility] Comment on above: Result Comment: Crit ical Result Notification Called date and time: 01/05/2025 06:45:33 EDT Result called to and read back by: Doretha Arana ROLE PLAYER (First, Last, Title, Location) Performed By: #### C D:[id number] ####[address] [address] hs Troponin I 504 ng/L Critically abnormal 0-15 [facility] Comment on above: Result Comment: Crit ical Result Notification Called date and time: 01/05/2025 05:10:49 EDT Result called to and read back by: Tyron Wise RN 6NU (First, Last, Title, Location) Performed By: #### B LDC #### [facility] (DEFAULT) [address] [place] [address] [address] [address] [address] Hemoglobinon 01-05-2025 Hemoglobin (Bld) [Mass/Vol] 8.9 g/dL Low 12.0-16.0 [facility] Comment on above: Performed By: #### B LDC #### [address] [address] Hep Func Panelon 01-05-2025 Albumin [Mass/Vol] 3.6 g/dL Low 3.7-5.3 [facility] Comment on above: Performed By: #### B LDC #### [facility] (DEFAULT) [address] [facility] [address] [facility] [address] [facility] [address] Alk Phos 60 IU/L Normal 34-104 [facility] Comment on above: Performed By: #### B LDC #### [facility] (DEFAULT) [address] [facility] [address] [facility] [address] [facility] [address] ALT [Catalytic activity/Vol] 15 U/L Normal 7-52 [facility] Comment on above: Performed By: #### B LDC #### [facility] (DEFAULT) [address] [facility] [address] [facility] [address] [facility] [address] AST [Catalytic activity/Vol] 30 U/L Normal 13-39 [facility] Comment on above: Performed By: #### B LDC #### [facility] (DEFAULT) [address] [facility] [address] [facility] [address] [facility] [address] Bili Direct 0.10 mg/dL Normal 0.03-0.18 [facility] Comment on above: Performed By: #### B LDC #### [facility] (DEFAULT) [address] [facility] [address] [facility] [address] [facility] [address] Bili Indirect 0.8 mg/dL Normal 0.0-1.0 [facility] Comment on above: Performed By: #### B LDC #### [facility] (DEFAULT) [address] [facility] [address] [facility] [address] [facility] [address] Bili Total 0.9 mg/dL Normal 0.3-1.0 [facility] Comment on above: Performed By: #### B LDC #### [facility] (DEFAULT) [address] [facility] [address] [facility] [address] [facility] [address] Protein [Mass/Vol] 5.5 g/dL Low 6.0-8.3 [facility] Comment on above: Performed By: #### B LDC #### [facility] (DEFAULT) [address] [facility] [address] [facility] [address] [facility] [address] Hgb & Hcton 01-05-2025 Hematocrit (Bld) [Volume fraction] 28.6 % Low 36.0-46.0 [facility] Comment on above: Performed By: #### B LD #### [facility] (DEFAULT) [address] [facility] [address] [facility] [address] [facility] [address] Hemoglobin (Bld) [Mass/Vol] 9.7 g/dL Low 12.0-16.0 [facility] Comment on above: Performed By: #### B LD #### [facility] (DEFAULT) [address] [facility] [address] [facility] [address] [place] [address] Lactic Acid, Randomon 2024 Lactic Acid Lvl 1.9 mmol/L Normal 0.5-2.0 [facility] Comment on above: Performed By: #### L A ####[address] [address] Magnesiumon 01-05-2025 Magnesium [Mass/Vol] 1.8 mg/dL Normal 1.7-2.4 [facility] Comment on above: Performed By: #### M G ####[address] [address] Orthopedic Progress Noteon 0 01-05-2025 Orthopedic Progress [...] Pb Ko PA-C 01/05/25 06:52 EDT Normal [facility] POC Glucose Randomon 025 Glucose [Mass/Vol] 120 mg/dL High 70-99 [facility] Comment on above: Performed By: #### C D:[id number] ####[address] [address] XR OR Spine Lumbar Crossfire on 01-05-2025 [...] Electronically Signed in Other Vendor System) Normal [facility] ABO/Rhon 01-04-2025 ABO/Rh ABO/Rh: A POS Normal [facility] Comment on above: Performed By: #### A BORH #### [facility] (UNKNOWN) [address] [place] [address] ABSC Autoon 01-04-2025 ABSC Auto Negative [facility] Comment on above: Performed By: #### B LDC #### [facility] [address] [place] [address] Activated partial thrombopla stin time (aPTT) in platelet poor plasma by coagulation aOrdered By: Jae Alvarez on 12-28-2024 aPTT Coag (PPP) [Time] 26.7 s 22.3-36.2 [facility] Basophils Auto (Bld) [#/Vol] Ordered By: Jae Alvarez on 12-28-2024 Basophils (Bld) [#/Vol] 0.0 10 3/uL 0.0-0.1 [facility] Basophils/100 WBC Auto (Bld) Ordered By: Jae Alvarez on 12-28-2024 Basophils/100 WBC (Bld) 0.4 % 0.2-2.0 [facility] Eosinophils/100 WBC Auto (Bl d)Ordered By: Jae Alvarez on 12-28-2024 Eosinophils/100 WBC (Bld) 3.0 % 0.9-7.0 [facility] Erythrocyte distribution wid th Auto (RBC) [Ratio]Ordered By: Jae Alvarez on 12-28-2024 Erythrocyte distribution width (RBC) [Ratio] 12.4 % 11.0-15.0 [facility] Glomerular filtration rate ( GFR) estimation in non- AmericanOrdered By: Jae Alvarez on 12-28-2024 GFR/1.73 sq M.predicted among non-blacks MDRD (S/P/Bld) [Vol rate/Area] mL/min/{1.73_m2} >=60 mL/min/1.73m 2 [facility] Hematocrit Auto (Bld) [Volum e fraction]Ordered By: Jae Alvarez on 12-28-2024 Hematocrit (Bld) [Volume fraction] 40.2 % 36.0-48.0 [facility] Hemoglobin [Mass/volume] in BloodOrdered By: Jae Alvarez on 12-28-2024 Hemoglobin (Bld) [Mass/Vol] 13.1 g/dL 12.0-16.0 [facility] INR in Platelet poor plasma by Coagulation assayOrdered By: Jae Alvarez on 12-28-2024 INR Coag (PPP) [Relative time] 1.02 {INR} [facility] Comment on above: DESIRED INR:2.0-3.0 CONDITIONS NOT LISTED BELOW2.5-3.5 FOR PROSTHETIC HEART VALVE REPLACEMENT2.5-3.5 RECURRENT THROMBOSIS Laboratory - Chemistry and C hemistry - challengeOrdered By: Jae Alvarez on 12-28-2024 Calcium [Mass/Vol] 9.2 mg/dL 8.5-10.1 [facility] Chloride [Moles/Vol] 104 mmol/L 98-[address] [facility] CO2 [Moles/Vol] 30.9 mmol/L 21.0-32.0 [facility] Creatinine [Mass/Vol] 0.87 mg/dL 0.55-1.02 [facility] GFR/1.73 sq M.predicted MDRD (S/P/Bld) [Vol rate/Area] mL/min/{1.73_m2} >=60 mL/min/1.73m 2 [facility] Glucose [Mass/Vol] 91 mg/dL 74-106 [facility] Potassium [Moles/Vol] 3.8 mmol/L 3.5-5.1 [facility] Sodium [Moles/Vol] 142 mmol/L 136-145 [facility] Urea nitrogen [Mass/Vol] 13.0 mg/dL 7.0-18.0 [facility] Urea nitrogen/Creatinine [Mass ratio] 14.9 mg/mg [facility] Laboratory - Hematology and Cell countsOrdered By: Jae Alvarez on 12-28-2024 Immature granulocytes/100 WBC (Bld) 0.2 % 0.0-0.5 [facility] Leukocytes [#/volume] correc bill for nucleated erythrocytes in Blood by Automated counOrdered By: Jae Alvarez on 12-28-2024 WBC corrected for nucl RBC Auto (Bld) [#/Vol] 4.7 10 3/uL 4.0-11.0 [facility] Lymphocytes Auto (Bld) [#/Vo l]Ordered By: Jae Alvarez on 12-28-2024 Lymphocytes (Bld) [#/Vol] 1.3 10 3/uL 1.2-3.8 [facility] Lymphocytes/100 WBC Auto (Bl d)Ordered By: Jae Alvarez on 12-28-2024 Lymphocytes/100 WBC (Bld) 27.4 % 20.5-60.0 [facility] MCH Auto (RBC) [Entitic mass ]Ordered By: Jae Alvarez on 12-28-2024 MCH (RBC) [Entitic mass] 31.6 pg 26.7-34.0 [facility] MCHC Auto (RBC) [Mass/Vol]Or dered By: Jae Alvarez on 12-28-2024 MCHC (RBC) [Mass/Vol] 32.6 g/dL 29.9-35.2 [facility] MCV Auto (RBC) [Entitic vol] Ordered By: Jae Alvarez on 12-28-2024 MCV (RBC) [Entitic vol] 97.1 fL 81.0-99.0 [facility] Monocytes Auto (Bld) [#/Vol] Ordered By: Jae Alvarez on 12-28-2024 Monocytes (Bld) [#/Vol] 0.6 10 3/uL 0.3-0.8 [facility] Monocytes/100 WBC Auto (Bld) Ordered By: Jae Alvarez on 12-28-2024 Monocytes/100 WBC (Bld) 13.4 % High 1.7-12.0 [facility] Neutrophils Auto (Bld) [#/Vo l]Ordered By: Selmicheln Kim on 12-28-2024 Neutrophils (Bld) [#/Vol] 2.6 10 3/uL 1.4-6.5 [facility] Neutrophils/100 WBC Auto (Bl d)Ordered By: Selmicheln Kim on 12-28-2024 Neutrophils/100 WBC (Bld) 55.6 % 43.0-75.0 [facility] No Panel InformationOrdered By: Jae Alvarez on 12-28-2024 Eosinophils # (Auto) 0.1 10 3/uL 0.0-0.7 [facility] Immature Granulocyte # (Auto) 0.01 10 3/uL 0.00-0.03 [facility] Platelet mean volume Auto (B ld) [Entitic vol]Ordered By: Jae Alvarez on 12-28-2024 Platelet mean volume (Bld) [Entitic vol] 10.1 fL 9.5-13.5 [facility] Platelets Auto (Bld) [#/Vol] Ordered By: Selmatthew Dossir on 12-28-2024 Platelets (Bld) [#/Vol] 212 10 3/uL 150-450 [facility] Prothrombin time (PT)Ordered By: Jae Alvarez on 12-28-2024 PT Coag (PPP) [Time] 10.8 s 9.0-11.[address] [facility] RBC Auto (Bld) [#/Vol]Ordere d By: Jae Alvarez on 12-28-2024 RBC (Bld) [#/Vol] 4.14 10 6/uL Low 4.20-5.40 [facility] Serum or plasma anion gap de terminationOrdered By: Jae Alvarez on 12-28-2024 Anion gap [Moles/Vol] 10.9 mmol/L Fi [facility] CT Spine Lumbar w/ Contrasto n [...] Transcribed by: DIOGO Technologist: ASHUTOSH Najma Keenan [facility] XR Myelography Lumbosacralon 11-23-2024 XR Myelography [...] MD Transcribed by: DIOGO Technologist: DPR Normal [facility] Basophils Auto (Bld) [#/Vol] on 09-09-2023 Basophils (Bld) [#/Vol] 0.0 10 3/uL 0.0-0.1 [facility] Basophils/100 WBC Auto (Bld) on 09-09-2023 Basophils/100 WBC (Bld) 0.4 % 0.2-2.0 [facility] Casts typing in urine sedime nt by light microscopyon 09-09-2023 Casts LM Nom (Urine sed) NONE SEEN #/LPF NONE S EEN [facility] Eosinophils/100 WBC Auto (Bl d)on 09-09-2023 Eosinophils/100 WBC (Bld) 1.1 % 0.9-7.0 [facility] Erythrocyte distribution wid th Auto (RBC) [Ratio]on 09-09-2023 Erythrocyte distribution width (RBC) [Ratio] 13.0 % 11.0-15.0 [facility] Estimated glomerular filtrat ion rate (GFR) non- Americanon 09-09-2023 GFR/1.73 sq M.predicted among non-blacks MDRD (S/P/Bld) [Vol rate/Area] 52 mL/min/{1.73_m2} Low >=60 [facility] Globulin Calc (S) [Mass/Vol] on 09-09-2023 Globulin (S) [Mass/Vol] 3.5 g/dL [facility] Hematocrit Auto (Bld) [Volum e fraction]on 09-09-2023 Hematocrit (Bld) [Volume fraction] 39.0 % 36.0-48.0 [facility] Hemoglobin [Mass/volume] in Bloodon 09-09-2023 Hemoglobin (Bld) [Mass/Vol] 12.6 g/dL 12.0-16.0 [facility] Laboratory - Chemistry and C hemistry - challengeon 09-09-2023 Albumin [Mass/Vol] 3.6 g/dL 3.4-5.0 [facility] ALP [Catalytic activity/Vol] 74 U/L 46-116 [facility] ALT [Catalytic activity/Vol] 30 U/L 14-59 [facility] AST [Catalytic activity/Vol] 24 U/L 15-37 [facility] Bilirubin [Mass/Vol] 0.5 mg/dL 0.2-1.[address] [facility] Calcium [Mass/Vol] 9.8 mg/dL 8.5-10.1 [facility] Chloride [Moles/Vol] 102 mmol/L 98-[address] [facility] CO2 [Moles/Vol] 31.2 mmol/L 21.0-32.0 [facility] Creatinine [Mass/Vol] 1.01 mg/dL 0.55-1.02 [facility] GFR/1.73 sq M.predicted MDRD (S/P/Bld) [Vol rate/Area] mL/min/{1.73_m2} >=60 [facility] Glucose [Mass/Vol] 100 mg/dL 74-106 [facility] Lipase [Catalytic activity/Vol] 25.0 U/L 16.0-77.0 [facility] Potassium [Moles/Vol] 3.9 mmol/L 3.5-5.1 [facility] Protein [Mass/Vol] 7.1 g/dL 6.4-8.2 [facility] Sodium [Moles/Vol] 140 mmol/L 136-145 [facility] Urea nitrogen [Mass/Vol] 22.0 mg/dL High 7.0-18.0 [facility] Urea nitrogen/Creatinine [Mass ratio] 21.8 mg/mg [facility] Bilirubin Ql (U) Negative NEGATIVE [facility] Glucose (U) [Mass/Vol] Negative NEGATIVE [facility] Ketones Ql (U) Negative NEGATIVE [facility] pH (U) 6.0 [pH] 5.0-9.0 [facility] Specific gravity (U) [Rel density] 1.020 1.005-1.025 [facility] Urobilinogen Qn (U) 0.2 {Sosa'U}/dL 0.2-1.0 [facility] Laboratory - Hematology and Cell countson 09-09-2023 Immature granulocytes/100 WBC (Bld) 0.3 % 0.0-0.5 [facility] Laboratory - Specimen inform ationon 09-09-2023 Appearance (U) CLEAR CLEAR [facility] Color (U) DK. YELLOW YELLOW [facility] Laboratory - Urinalysison Amorphous sediment LM Ql (Urine sed) RARE [facility] Leukocyte esterase Test strip Ql (U) TRACE Abnormal NEGATIVE [facility] Nitrite Ql (U) Negative NEGATIVE [facility] Protein Ql (U) Negative NEG/TRACE [facility] Leukocytes [#/volume] correc bill for nucleated erythrocytes in Blood by Automated counon 09-09-2023 WBC corrected for nucl RBC Auto (Bld) [#/Vol] 10.7 10 3/uL 4.0-11.0 [facility] Lymphocytes Auto (Bld) [#/Vo l]on 09-09-2023 Lymphocytes (Bld) [#/Vol] 1.5 10 3/uL 1.2-3.8 [facility] Lymphocytes/100 WBC Auto (Bl d)on 09-09-2023 Lymphocytes/100 WBC (Bld) 13.7 % Low 20.5-60.0 [facility] MCH Auto (RBC) [Entitic mass ]on 09-09-2023 MCH (RBC) [Entitic mass] 31.2 pg 26.7-34.0 [facility] MCHC Auto (RBC) [Mass/Vol]on 09-09-2023 MCHC (RBC) [Mass/Vol] 32.3 g/dL 29.9-35.2 [facility] MCV Auto (RBC) [Entitic vol] on 09-09-2023 MCV (RBC) [Entitic vol] 96.5 fL 81.0-99.0 [facility] Monocytes Auto (Bld) [#/Vol] on 09-09-2023 Monocytes (Bld) [#/Vol] 1.0 10 3/uL High 0.3-0.8 [facility] Monocytes/100 WBC Auto (Bld) on 09-09-2023 Monocytes/100 WBC (Bld) 9.5 % 1.7-12.0 [facility] Mucus LM Ql (Urine sed)on Mucus Ql (Urine sed) NONE SEEN NONE SEEN [facility] Neutrophils Auto (Bld) [#/Vo l]on 09-09-2023 Neutrophils (Bld) [#/Vol] 8.0 10 3/uL High 1.4-6.5 [facility] Neutrophils/100 WBC Auto (Bl d)on 09-09-2023 Neutrophils/100 WBC (Bld) 75.0 % 43.0-75.0 [facility] No Panel Informationon 09-08 Eosinophils # (Auto) 0.1 10 3/uL 0.0-0.7 Fir [facility] Immature Granulocyte # (Auto) 0.03 10 3/uL 0.00-0.03 [facility] Urine Bacteria NONE SEEN #/HPF NONE SEEN [facility] Urine Culture [facility]ed [facility] Micro[facility]opic Review YES [facility] Urine Occult Blood LARGE Abnormal NEGATIVE [facility] Urine Other Crystals Seen #/HPF Abnormal None Seen [facility] Urine RBC 10-20 #/HPF Abnormal 0-2 [facility] Urine Squamous Epithelial Cells NONE SEEN #/LPF NONE/RARE [facility] Urine Uric Acid Crystals FEW [facility] Urine WBC 2-5 #/HPF Abnormal NONE SEEN [facility] Platelet mean volume Auto (B ld) [Entitic vol]on 09-09-2023 Platelet mean volume (Bld) [Entitic vol] 9.5 fL 9.5-13.5 [facility] Platelets Auto (Bld) [#/Vol] on 09-09-2023 Platelets (Bld) [#/Vol] 240 10 3/uL 150-450 [facility] RBC Auto (Bld) [#/Vol]on RBC (Bld) [#/Vol] 4.04 10 6/uL Low 4.20-5.40 [facility] Serum or plasma albumin/glob ulin mass ratioon 09-09-2023 Albumin/Globulin [Mass ratio] 1.0 {ratio} [facility] Serum or plasma anion gap de terminationon 09-09-2023 Anion gap [Moles/Vol] 10.7 mmol/L [facility] XR RIBS LT PA Stephen [...] by: PB GENAO Date: 2022-10-02 11:51 Normal [facility] XR CSPINE 2_3 VIEWSon 2022 XR [...] by: ISAEL GRIFFIN Date: 2022-09-05 15:58 Normal [facility] CBC AUTO DIFFon 12-31-2021 BASO # 0.0 103/ul Normal 0.0-0.1 [facility] Comment on above: Performed By: #### C BC #### [facility] [address] [address] [address] Radha Land Basophils/100 WBC (Bld) 0.2 % Normal 0.2-2.0 T [facility] Comment on above: Performed By: #### C BC #### [facility] [address] [address] [address] Radha Land EO # 0.2 103/ul Normal 0.0-0.7 [facility] Comment on above: Performed By: #### C BC #### [facility] [address] [address] [address] Radha Land Eosinophils/100 WBC (Bld) 1.7 % Normal 0.9-7.0 [facility] Comment on above: Performed By: #### C BC #### [facility] [address] [place] [address] Dr. Radha Land Erythrocyte distribution width (RBC) [Ratio] 13.4 % Normal 11.0-15.0 [facility] Comment on above: Performed By: #### C BC #### [facility] [address] [place] [address] Dr. Radha Land Hematocrit (Bld) [Volume fraction] 40.9 % Normal 36.0-48.0 [facility] Comment on above: Performed By: #### C BC #### [facility] [address] [place] [address] Dr. Radha Land Hemoglobin (Bld) [Mass/Vol] 13.1 g/dL Normal 12.0-16.0 [facility] Comment on above: Performed By: #### C BC #### [facility] [address] [place] [address] Dr. Radha Land IG # 0.05 10e3/ul Critically high 0.00-0.03 [facility] Comment on above: Performed By: #### C BC #### [facility] [address] [place] [address] Dr. Radha Land IG % 0.4 % Normal 0.0-0.5 [facility] Comment on above: Performed By: #### C BC #### [facility] [address] [place] [address] Dr. Radha Land LYMPH # 1.4 103/ul Normal 1.2-3.8 [facility] Comment on above: Performed By: #### C BC #### [facility] [address] [address] [address] Radha Land Lymphocytes/100 WBC (Bld) 10.8 % Critically low 20.5-60.0 [facility] Comment on above: Performed By: #### C BC #### [facility] [address] [place] [address] Dr. Radha Land MANUAL DIFF REQ NO Normal [facility] Comment on above: Performed By: #### C BC #### [facility] [address] [place] [address] Dr. Radha Land MCH (RBC) [Entitic mass] 31.5 pg Normal 26.7-34.0 [facility] Comment on above: Performed By: #### C BC #### [facility] [address] [place] [address] Dr. Radha Land MCHC (RBC) [Mass/Vol] 32.0 g/dL Normal 29.9-35.2 [facility] Comment on above: Performed By: #### C BC #### [facility] [address] [place] [address] Dr. Radha Land MCV (RBC) [Entitic vol] 98.3 fL Normal 81.0-99.0 [facility] Comment on above: Performed By: #### C BC #### [facility] [address] [place] [address] Dr. Radha Land MONO # 1.3 103/ul Critically high 0.3-0.8 [facility] Comment on above: Performed By: #### C BC #### [facility] [address] [place] [address] Dr. Radha Land Monocytes/100 WBC (Bld) 9.7 % Normal 1.7-12.0 [facility] Comment on above: Performed By: #### C BC #### [facility] [address] [place] [address] Dr. Radha Land NEUT # 10.2 103/ul Critically high 1.4-6.5 [facility] Comment on above: Performed By: #### C BC #### [facility] [address] [address] [address] Radha Land Neutrophils/100 WBC (Bld) 77.2 % Critically high 43.0-75.0 [facility] Comment on above: Performed By: #### C BC #### [facility] [address] [address] [address] Radha Land Platelet mean volume (Bld) [Entitic vol] 9.7 fL Normal 9.5-13.5 [facility] Comment on above: Performed By: #### C BC #### [facility] [address] [address] [address] Radha Land PLT 235 103/ul Normal 150-450 [facility] Comment on above: Performed By: #### C BC #### [facility] [address] [address] [address] Radha Land RBC 4.16 106/ul Critically low 4.20-5.40 [facility] Comment on above: Performed By: #### C BC #### [facility] [address] [address] [address] Radha Land WBC 13.2 103/ul Critically high 4.0-11.0 [facility] Comment on above: Performed By: #### C BC #### [facility] [address] [address] [address] Radha Land SED RATE WESTERGRENon 2021 SED RATE 35 mm/hr Critically high <=30 [facility] Comment on above: Performed By: #### S EDR #### [facility] [address] [address] [address] Radha Land CBC AUTO DIFFon 11-07-2021 BASO # 0.0 103/ul Normal 0.0-0.1 [facility] Comment on above: Performed By: #### C BC ####[facility] [address] [place], [place] [address]DpDr. Radha Land Basophils/100 WBC (Bld) 0.3 % Normal 0.2-2.0 [facility] Comment on above: Performed By: #### C BC ####[facility] [address] [address]Dr. Radha Land EO # 0.2 103/ul Normal 0.0-0.7 [facility] Comment on above: Performed By: #### C BC ####[facility] [address] [address]Dr. Radha Land Eosinophils/100 WBC (Bld) 3.3 % Normal 0.9-7.0 [facility] Comment on above: Performed By: #### C BC ####[facility] [address] [place], [place] [address]Dr. Radha Land Erythrocyte distribution width (RBC) [Ratio] 13.2 % Normal 11.0-15.0 [facility] Comment on above: Performed By: #### C BC ####[facility] [address] [place], [place] [address]Dr. Radha Land Hematocrit (Bld) [Volume fraction] 41.9 % Normal 36.0-48.0 [facility] Comment on above: Performed By: #### C BC ####[facility] [address] [place], [place] [address]Dr. Radha Land Hemoglobin (Bld) [Mass/Vol] 13.4 g/dL Normal 12.0-16.0 [facility] Comment on above: Performed By: #### C BC ####[facility] [address] [place], [place] [address]Dr. Radha Land IG # 0.01 10e3/ul Normal 0.00-0.03 [facility] Comment on above: Performed By: #### C BC ####[facility] [address] [place], [place] [address]Dr. Radha Land IG % 0.2 % Normal 0.0-0.5 [facility] Comment on above: Performed By: #### C BC ####[facility] [address] [place], [place] [address]Dr. Jacquelyncharlotte Land LYMPH # 1.6 103/ul Normal 1.2-3.8 [facility] Comment on above: Performed By: #### C BC ####[facility] [address] [id number]. Radha Emery Lymphocytes/100 WBC (Bld) 27.5 % Normal 20.5-60.0 [facility] Comment on above: Performed By: #### C BC ####[facility] [address] [phone][address] Radha Land MANUAL DIFF REQ NO Normal [facility] Comment on above: Performed By: #### C BC ####[facility] [address] [phone]. Jacquelyncharlotte Land MCH (RBC) [Entitic mass] 31.2 pg Normal 26.7-34.0 [facility] Comment on above: Performed By: #### C BC ####[facility] [address] [address]Dr. Radha Land MCHC (RBC) [Mass/Vol] 32.0 g/dL Normal 29.9-35.2 [facility] Comment on above: Performed By: #### C BC ####[facility] [address] [id number]. Radha Land MCV (RBC) [Entitic vol] 97.7 fL Normal 81.0-99.0 [facility] Comment on above: Performed By: #### C BC ####[facility] [address] [place], [place] [id number]. Radha Land MONO # 0.7 103/ul Normal 0.3-0.8 [facility] Comment on above: Performed By: #### C BC ####[facility] [address] [place], [place] [id number]. Radha Land Monocytes/100 WBC (Bld) 12.4 % Critically high 1.7-12. 0 [facility] Comment on above: Performed By: #### C BC ####[facility] [address] [place], [place] [id number]. Radha Land NEUT # 3.2 103/ul Normal 1.4-6.5 [facility] Comment on above: Performed By: #### C BC ####[facility] [address] [place], [place] [address]Wg. Radha Land Neutrophils/100 WBC (Bld) 56.3 % Normal 43.0-75.0 [facility] Comment on above: Performed By: #### C BC ####[facility] [address] [place], [place] [address]Fm. Radha Land Platelet mean volume (Bld) [Entitic vol] 9.4 fL Critically low 9.5-13.5 [facility] Comment on above: Performed By: #### C BC ####[facility] [address] [phone]. Radha Land PLT 226 103/ul Normal 150-450 [facility] Comment on above: Performed By: #### C BC ####[facility] [address] [phone]. Radha Land RBC 4.29 106/ul Normal 4.20-5.40 [facility] Comment on above: Performed By: #### C BC ####[facility] [address] [phone]. Radha Land WBC 5.7 103/ul Normal 4.0-11.0 [facility] Comment on above: Performed By: #### C BC ####[facility] [address] [phone] Land LIPID PROFILEon 11-07-2021 CHOL-HDL RATIO NORM SEE BELOW Normal [facility] Comment on above: Result Comment: 3.3 - 4.4 LOW RISK 4.4 - 7.1 AVERAGE RISK 7.1 - 11.0 MODERATE RISK >11.0 HIGH RISK Performed By: #### L IPID, CMP #### [facility] [id number] Radha Land Cholesterol [Mass/Vol] 257 mg/dL Critically high <=200 [facility] Comment on above: Performed By: #### L IPID, CMP #### [facility] [id number] Radha Land Cholesterol in HDL [Mass/Vol] 76 mg/dL Critically high 40-60 [facility] Comment on above: Performed By: #### L IPID, CMP #### [facility] [address] [address] [address] Radha Land Cholesterol in LDL [Mass/Vol] 163.8 mg/dL Normal [facility] Comment on above: Performed By: #### L IPID, CMP #### [facility] [address] [address] [address] Radha Land Cholesterol.total/Choles terol in HDL [Mass ratio] 3.4 {ratio} Normal [facility] Comment on above: Performed By: #### L IPID, CMP #### [facility] [address] [place] [address] Dr. Radha Land HDL NORMAL > or = 60 mg/dl - LOW CARDIOVASCULAR RISK <40 mg/dl - HIGH CARDIOVASCULAR RISK Normal [facility] Comment on above: Performed By: #### L IPID, CMP #### [facility] [address] [place] [address] Dr. Radha Land LDL CALC NORMAL SEE BELOW Normal [facility] Comment on above: Result Comment: <100 mg/dl OPTIMAL 100 - 129 mg/dl NEAR OR ABOVE OPTIMAL 130 - 159 mg/dl BORDERLINE HIGH 160 - 189 mg/dl HIGH >190 mg/dl VERY HIGH Performed By: #### L IPID, CMP #### [facility] [address] [place] [address] Dr. Radha Land Triglyceride [Mass/Vol] 86 mg/dL Normal <=150 T [facility] Comment on above: Performed By: #### L IPID, CMP #### [facility] [address] [place] [address] Dr. Radha Land VLDL CALC 17.2 mg/dL Normal [facility] Comment on above: Performed By: #### L IPID, CMP #### [facility] [address] [place] [address] Dr. Radha Land MG MAMM SCREEN 3D ROD CADon 11-07-2021 MG MAMM SCREEN 3D ROD CAD Patient: NINFA LEA. Exam Date: 11/07/2021 : 1940 Gender:F Ordering : DR RUBA HIGGINS M.D. Admission #: [id number] Family : Order #: [id number] CLICK HERE TO VIEW EXAM RADIOLOGY REPORT [...] at age 47. LOCATION: [facility] BREAST COMPOSITION: Extremely dense, which lowers [...] Arriaga MD on 11/07/2021 at 11:21 Normal [facility] PROF 14(COMP METB)on 022 Albumin [Mass/Vol] 3.6 g/dL Normal 3.4-5.0 [facility] Comment on above: Performed By: #### L IPID, CMP #### [facility] [address] [place] [address] Dr. Radha Land Albumin/Globulin [Mass ratio] 0.9 {ratio} Normal [facility] Comment on above: Performed By: #### L SRIKANTH, CMP #### [facility] [address] [place] [address] Dr. Radha Land ALP [Catalytic activity/Vol] 79 U/L Normal 46-116 [facility] Comment on above: Performed By: #### L IPID, CMP #### [facility] [address] [place] [address] Dr. Radha Land ALT [Catalytic activity/Vol] 32 U/L Normal 14-59 [facility] Comment on above: Performed By: #### L IPID, CMP #### [facility] [address] [place] [address] Dr. Radha Land Anion gap [Moles/Vol] 6.1 mmol/L Normal [facility] Comment on above: Performed By: #### L IPID, CMP #### [facility] [address] [place] [address] Dr. Radha Land AST [Catalytic activity/Vol] 28 U/L Normal 15-37 [facility] Comment on above: Performed By: #### L IPID, CMP #### [facility] [address] [place] [address] Dr. Radha Land Bilirubin [Mass/Vol] 0.6 mg/dL Normal 0.2-1.0 [facility] Comment on above: Performed By: #### L IPID, CMP #### [facility] [address] [place] [address] Dr. Radha Land Calcium [Mass/Vol] 9.1 mg/dL Normal 8.5-10.1 [facility] Comment on above: Performed By: #### L IPID, CMP #### [facility] [address] [place] [address] Dr. Radha Land Chloride [Moles/Vol] 104 mmol/L Normal 98-107 [facility] Comment on above: Performed By: #### L IPID, CMP #### [facility] [address] [place] [address] Dr. Radha Land CO2 [Moles/Vol] 31.0 mmol/L Normal 21.0-32.0 [facility] Comment on above: Performed By: #### L IPID, CMP #### [facility] [address] [place] [address] Dr. Radha Land Creatinine [Mass/Vol] 0.86 mg/dL Normal 0.55-1.02 [facility] Comment on above: Performed By: #### L IPID, CMP #### [facility] [address] [place] [address] Dr. Radha Land EGFR-AF KENYAN >60 Normal >=60 [facility] Comment on above: Performed By: #### L IPID, CMP #### [facility] [address] [address] [address] Radha Land EGFR-NON AF KENYAN >60 Normal >=60 [facility] Comment on above: Performed By: #### L IPID, CMP #### [facility] [address] [address] [address] Radha Land Globulin (S) [Mass/Vol] 4.1 g/dL Normal T [facility] Comment on above: Performed By: #### L IPID, CMP #### [facility] [address] [place] [address] Dr. Radha Land Glucose [Mass/Vol] 89 mg/dL Normal 74-106 [facility] Comment on above: Performed By: #### L IPID, CMP #### [facility] [address] [place] [address] Dr. Radha Land Potassium [Moles/Vol] 4.1 mmol/L Normal 3.5-5.1 [facility] Comment on above: Performed By: #### L IPID, CMP #### [facility] [address] [place] [address] Dr. Radha Land Protein [Mass/Vol] 7.7 g/dL Normal 6.4-8.2 [facility] Comment on above: Performed By: #### L IPID, CMP #### [facility] [address] [place] [address] Dr. Radha Land Sodium [Moles/Vol] 137 mmol/L Normal 136-145 [facility] Comment on above: Performed By: #### L IPID, CMP #### [facility] [address] [place] [address] Dr. Radha Land Urea nitrogen [Mass/Vol] 12.0 mg/dL Normal 7.0-18.0 [facility] Comment on above: Performed By: #### L IPID, CMP #### [facility] [address] [place] [address] Dr. Radha Land Urea nitrogen/Creatinine [Mass ratio] 14.0 mg/mg Normal [facility] Comment on above: Performed By: #### L IPID, CMP #### [facility] [address] [address] [address] Radha Land Vital Signs Date Time Vital Sign Value Performing Clinician Facility 02-22-2025 08:29-0400 Body height 165.1 cm Ruba Higgins MD Work Phone: [phone] [place] [address] 02-22-2025 08:29-0400 Body mass index (BMI) [Ratio] 20.2 kg/m2 Ruba Higgins MD Work Phone: [phone] [place] [address] 02-22-2025 08:29-0400 Body weight 55.33 kg Ruba Higgins MD Work Phone: [facility] 02-22-2025 08:29-0400 Diastolic blood pressure 69 mm[Hg] Ruba Higgins MD Work Phone: [facility] 02-22-2025 08:29-0400 Heart rate 69 /min Ruba Higgins MD Work Phone: [facility] 02-22-2025 08:29-0400 Systolic blood pressure 123 mm[Hg] Ruba Higgins MD Work Phone: [facility] 12-28-2024 14:24-0400 Body height 165.1 cm Ruba Higgins MD Work Phone: [facility] 12-28-2024 14:24-0400 Body mass index (BMI) [Ratio] 20.5 kg/m2 Ruba Higgins MD Work Phone: [facility] 12-28-2024 14:24-0400 Body weight 55.79 kg Ruba Higgins MD Work Phone: [facility] 12-28-2024 14:24-0400 Diastolic blood pressure 73 mm[Hg] Ruba Higgins MD Work Phone: [facility] 12-28-2024 14:24-0400 Heart rate 57 /min Ruba Higgins MD Work Phone: [facility] 12-28-2024 14:24-0400 Systolic blood pressure 133 mm[Hg] Ruba Higgins MD Work Phone: [facility] 10-14-2024 09:57-0400 Body height 165.1 cm [facility] 10-14-2024 09:57-0400 Body mass index (BMI) [Ratio] 20.3 kg/m2 [facility] 10-14-2024 09:57-0400 Body weight 55.56 kg [facility] 10-14-2024 09:57-0400 Diastolic blood pressure 81 mm[Hg] [facility] 10-14-2024 09:57-0400 Heart rate 84 /min [facility] 10-14-2024 09:57-0400 Systolic blood pressure 160 mm[Hg] [facility] 09-15-2024 08:18-0400 Body weight 55.1 kg [facility] 09-15-2024 08:18-0400 Diastolic blood pressure 71 mm[Hg] [facility] 09-15-2024 08:18-0400 Systolic blood pressure 109 mm[Hg] [facility] 11-18-2023 10:53-0400 Body height 165.1 cm [facility] 11-18-2023 10:53-0400 Body mass index (BMI) [Ratio] 20.5 kg/m2 [facility] 11-18-2023 10:53-0400 Body weight 55.79 kg [facility] 11-18-2023 10:53-0400 Diastolic blood pressure 55 mm[Hg] [facility] 11-18-2023 10:53-0400 Heart rate 65 /min [facility] 11-18-2023 10:53-0400 Systolic blood pressure 132 mm[Hg] [facility] 11-06-2023 11:11-0400 Body height 165.1 cm [facility] 11-06-2023 11:11-0400 Body mass index (BMI) [Ratio] 20.2 kg/m2 [facility] 11-06-2023 11:11-0400 Body weight 55.33 kg [facility] 11-06-2023 11:11-0400 Diastolic blood pressure 67 mm[Hg] [facility] 11-06-2023 11:11-0400 Heart rate 61 /min [facility] 11-06-2023 11:11-0400 Systolic blood pressure 124 mm[Hg] [facility] 10-13-2023 12:31-0400 Blood Pressure Location Roman GUAN [...] Hospital 09-30-2023 14:31-0400 Body height 165.1 cm [facility] 09-30-2023 14:31-0400 Body mass index (BMI) [Ratio] 20.5 kg/m2 [facility] 09-30-2023 14:31-0400 Body weight 55.79 kg [facility] 09-30-2023 14:31-0400 Diastolic blood pressure 62 mm[Hg] [facility] 09-30-2023 14:31-0400 Heart rate 64 /min [facility] 09-30-2023 14:31-0400 Systolic blood pressure 104 mm[Hg] [facility] 09-17-2023 08:00-0400 Blood Pressure Location Roman GUAN [facility] 09-17-2023 08:00-0400 Diastolic blood pressure 80 mm[Hg] Roman GUAN [facility] 09-17-2023 08:00-0400 Heart rate 64 /min Roman GUAN [facility] 09-17-2023 08:00-0400 Systolic blood pressure 132 mm[Hg] Roman GUAN [facility] 01-10-2023 09:45-0400 Body height 165.1 cm Ruba Higgins Other [employer] [facility] [employer] Other 01-10-2023 09:45-0400 Body mass index (BMI) [Ratio] 20.87 kg/m2 Ruba Higgins Other [employer] Other 01-10-2023 09:45-0400 Body weight 56.88 kg Ruba Higgins Other [facility] Other 01-10-2023 09:45-0400 Diastolic blood pressure 78 mm[Hg] Ruba Higgins Other [facility] Other 01-10-2023 09:45-0400 Systolic blood pressure 142 mm[Hg] Ruba Higgins Other [facility] Other 10-28-2022 08:30-0400 Body height 165.1 cm Ruba Higgins Other [employer] Other 10-28-2022 08:30-0400 Body mass index (BMI) [Ratio] 20.47 kg/m2 Ruba Higgins Other [employer] Other 10-28-2022 08:30-0400 Body weight 55.79 kg Ruba Higgins Other [employer] Other 10-28-2022 08:30-0400 Diastolic blood pressure 47 mm[Hg] Ruba Higgins Other [employer] Other 10-28-2022 08:30-0400 Systolic blood pressure 124 mm[Hg] Ruba Higgins Other [employer] Other Encounters Encounter Date Encounter Type Care Provider Facility Start: 01-30-2026 ambulatory Roman Hearn ty: [place] Start: 02-22-2025 End: 02-22-2025 ambulatory Ruba Higgins MD Work Phone: [facility] Work Phone: Start: 02-22-2025 End: 02-22-2025 Patient encounter procedure Ruba Higgins MD [facility] Work Phone: Start: 02-10-2025 End: 02-10-2025 Bamboo flowsheet Maura Hoyt MD Work Phone: [facility] Start: 02-10-2025 End: 02-10-2025 Bamboo flowsheet Maura Hoyt MD Work Phone: [facility] Start: 02-10-2025 End: 02-10-2025 ambulatory MAURA HOYT Not Available Start: 01-28-2025 End: 01-28-2025 ambulatory Roman GUAN Facility:[facility] Start: 01-28-2025 End: 01-28-2025 Patient encounter procedure Roman GUAN [facility] Start: 01-04-2025 End: 01-07-2025 ambulatory Ruba Higgins MD Facility:[facility] Start: 12-30-2024 End: 12-30-2024 ambulatory Jae Alaniz MD Facility:[facility] Start: 12-28-2024 Preprocedural examination done Ruba Higgins MD Work Phone: [facility] Start: 12-28-2024 End: 12-28-2024 ambulatory Ruba Higgins MD Work Phone: [facility] Work Phone: Start: 12-28-2024 End: 12-28-2024 Patient encounter procedure Ruba Higgins MD -[facility] Work Phone: Start: 12-28-2024 End: 12-28-2024 Preprocedural examination done Ruba Higgins MD [facility] Start: 12-28-2024 Non-patient / Non-visit Jae Alaniz MD -[facility] [employer] Work Phone: Start: 11-29-2024 End: 11-29-2024 ambulatory Roman GUAN Facility:[facility] Start: 11-29-2024 End: 11-29-2024 Patient encounter procedure Roman GUAN [facility] Start: 11-23-2024 End: 11-23-2024 ambulatory MARK LEMUS Facility:[facility] Start: 11-01-2024 End: 11-01-2024 ambulatory Dulce Cifuentes MD Facility:[facility] Start: 10-14-2024 End: 10-14-2024 ambulatory [facility] Work Phone: Start: 10-14-2024 End: 10-14-2024 Patient encounter procedure [facility] Phys[facility] Work Phone: Start: 09-15-2024 End: 09-15-2024 ambulatory [facility] Work Phone: Start: 09-15-2024 End: 09-15-2024 Patient encounter procedure [facility] Physician [facility] Work Phone: Start: 08-18-2024 End: 08-18-2024 ambulatory [facility] Work Phone: Start: 08-18-2024 End: 08-18-2024 Patient encounter procedure [facility] Physician [facility] Work Phone: Start: 03-16-2024 End: 03-16-2024 ambulatory [facility] Work Phone: Start: 03-16-2024 End: 03-16-2024 Patient encounter procedure [facility] Physician [facility] Work Phone: Start: 01-05-2024 End: 01-05-2024 Bamboo flowsheet Maura Hoyt MD Work Phone: [facility] Start: 01-05-2024 End: 01-05-2024 Estebanboo flowsgayle Hoyt MD Work Phone: [facility] Start: 12-09-2023 End: 12-09-2023 ambulatory [facility] Work Phone: Start: 12-09-2023 End: 12-09-2023 Patient encounter procedure [facility] Physician [facility] Work Phone: Start: 11-18-2023 End: 11-18-2023 ambulatory [facility] Work Phone: Start: 11-18-2023 End: 11-18-2023 Patient encounter procedure [facility] Physician [facility] Work Phone: Start: 11-10-2023 Patient encounter procedure [facility] Start: 11-06-2023 End: 11-06-2023 Patient encounter procedure [facility] Physician [facility] Work Phone: Start: 10-13-2023 End: 10-13-2023 Patient encounter procedure Roman GUAN [facility] Start: 09-30-2023 End: 09-30-2023 ambulatory [facility] Work Phone: Start: 09-30-2023 End: 09-30-2023 Patient encounter procedure [facility] Physician [facility] Work Phone: Start: 09-17-2023 End: 09-17-2023 Patient encounter procedure Roman GUAN [facility] Start: 09-09-2023 Non-patient / Non-visit [facility] Physician [facility] [employer] Work Phone: Start: 08-26-2023 End: 08-26-2023 ambulatory [facility] Work Phone: Start: 08-26-2023 End: 08-26-2023 Patient encounter procedure [facility] Physician [facility] Work Phone: Start: 03-28-2023 End: 03-28-2023 ambulatory Ruba Higgins Other [employer] Other Start: 03-28-2023 Telephone encounter Ruba Higgins [facility] Start: 01-31-2023 End: 01-31-2023 ambulatory Ruba Higgins Other [employer] Other Start: 01-31-2023 Nursing evaluation o f patient and report Ruba Higgins [facility] Start: 01-14-2023 End: 01-14-2023 ambulatory Ruba Higgins Other [employer] Other Start: 01-14-2023 Telephone encounter Ruba Higgins [facility] Start: 01-10-2023 End: 01-10-2023 ambulatory Ruba Higgins Other [employer] Other Start: 01-10-2023 Office outpatient vi sit 15 minutes Ruba Higgins [facility] Start: 10-28-2022 End: 10-28-2022 ambulatory Ruba Higgins Other [employer] Other Start: 10-28-2022 Patient encounter procedure Ruba Gisela [facility] Start: 10-24-2022 End: 10-24-2022 ambulatory Ruba Higgins Other [employer] Other Start: 10-24-2022 Telephone encounter Ruba Gisela [facility] Start: 10-08-2022 End: 10-08-2022 ambulatory AJ LAKLALAMIPATHY . Facility:[facility] Start: 10-02-2022 End: 10-03-2022 ambulatory [...] 12-31-2021 Adult health examination Ruba Higgins Other [employer] Other Start: 12-31-2021 End: 01-01-[address] RUBA HIGGINS Facility:[facility] Start: 12-25-2021 End: 12-26-[address] VALENTINA BECKER . Facility:[facility] Start: 12-19-2021 End: 12-20-[address] VALENTINA BECKER . Facility:[facility] Start: 11-07-2021 End: 11-08-[address] RUBA HIGGINS Facility:[facility] Start: 03-01-2017 End: 03-01-2017 ambulatory [facility] Facility:[facility] Procedures Date Procedure Procedure Detail Performing Clinician Start: 02-10-2025 End: 02-10-2025 Oph medical xm&eval comprhnsv estab pt 1/> Dry eyes Maura M Lai MD Work Phone: Comment on above: Dry [...] breast Ruba Higgins Other stapidectomy 3 Roman Rothman Comment on above: right ear Plan of Treatment Date Care Activity Detail Author Start: 02-10-2025 End: 02-10-2025 Patient encounter procedure 02/10/2025 1:30 PM EDT Office Visit [facility] [address] [place] [address] Maura Hoyt MD [address] [place] [address] Arrived [facility] Comment on above: Arrived Start: 01-10-2025 Influenza vaccination Influenza Vacc ine (#1) [facility] Start: 10-14-2024 Patient referral [facility] Work Phone: Start: 09-15-2024 Patient referral [facility] Work Phone: Start: 01-11-2024 Influenza vaccination Influenza Vacc ine (#1) [facility] Start: 01-05-2024 End: 01-05-2024 Patient encounter procedure 01/05/2024 2:00 PM EDT [facility] [address] [place] [address] Maura Hoyt MD [address] [place] [address] Arrived [facility] Comment on above: Arrived Start: 03-10-2019 Pneumococcal Vaccine : 65+ Years (2 of 2 - PPSV23 or PCV20) Pneumococcal Vaccine: 65+ Years (2 of 2 - PPSV23 or PCV20) [facility] Start: 03-10-2019 Pneumococcal Vaccine : 65+ Years (2 of 2 - PPSV23) Pneumococcal Vaccine: 65+ Years (2 of 2 - PPSV23) [facility] Diagnostic radiograp hy of abdomen [facility] MG Breast - bilatera l Screening [facility] MG Breast - bilatera l Screening [facility] Patient Education Low back pain in adults [facility] Work Phone: Patient referral [facility] Work Phone: US [facility] [employer] [facility] Immunizations Immunization Date Immunization Notes Care Provider Fa cility 03-16-2024 influenza, high dose seasonal, preservative-free [facility] 03-16-2024 influenza virus vaccine, unspecified formulation Maura Hoyt MD Work Phone: [facility] 02-14-2023 influenza virus vaccine, unspecified formulation Roman GUAN [facility] 03-12-2022 SARS-CoV-2 (COVID-19 ) [id number] Roman GUAN [facility] Comment on above: Result Comment: 2023: [id number] 02-28-2022 influenza virus vaccine, split virus (incl. purified surface antigen) Ruba Higgins Other [employer] Other 02-28-2022 influenza virus vaccine, unspecified formulation [facility] 11-09-2021 SARS-CoV-2 (COVID-19 ) mRNA-1273 vaccine Roman GUAN [facility] Comment on above: Result Comment: 2023: [id number] 03-08-2021 SARS-CoV-2 (COVID-19 ) mRNA-1273 vaccine Roman GUAN [facility] 02-27-2021 influenza virus vaccine, split virus (incl. purified surface antigen) Ruba Higgins Other [employer] Other 02-27-2021 influenza virus vaccine, unspecified formulation [facility] 06-29-2020 SARS-CoV-2 (COVID-19 ) mRNA-1273 vaccine Roman GUAN [facility] 06-01-2020 SARS-CoV-2 (COVID-19 ) mRNA-1273 vaccine Romanarminda GUAN [facility] 03-14-2020 zoster vaccine recombinant Roman GUAN [facility] 02-16-2020 influenza virus vaccine, split virus (incl. purified surface antigen) Ruba Higgins Other [employer] Other 02-16-2020 influenza virus vaccine, unspecified formulation [facility] 10-25-2019 pneumococcal polysaccharide vaccine, 23 valent Ruba Higgins Other [facility] 01-25-2019 influenza virus vaccine, unspecified formulation Roman GUAN [facility] 03-10-2018 pneumococcal conjuga te vaccine, 13 valent Ruba Higgins Other [facility] 02-14-2018 influenza virus vaccine, unspecified formulation Roman GUAN [facility] 01-08-2017 influenza virus vaccine, split virus (incl. purified surface antigen) Ruba Higgins Other [facility] Other 01-08-2017 influenza virus vaccine, unspecified formulation [facility] 02-06-2016 influenza virus vaccine, split virus (incl. purified surface antigen) Ruba Higgins Other [employer] Other 02-06-2016 influenza virus vaccine, unspecified formulation [facility] 03-24-2015 influenza virus vaccine, split virus (incl. purified surface antigen) Ruba Higgins Other [employer] [facility] [employer] Other 03-24-2015 influenza virus vaccine, unspecified formulation [facility] 02-26-2013 tetanus and diphther ia toxoids, adsorbed, preservative free, for adult use (5 Lf of tetanus toxoid and 2 Lf of diphtheria toxoid) Ruba Higgins Other [facility] Payers Date Payer Category Payer Medicaid [employer] MEDICARE A DVANTAGE [id number] 2024 Private Health Insurance [facility] [id number] 2024 Private Health Insurance 2022 Medicare [id number] 2017 Self-pay 1960 Medicare [id number] 1939 Unknown [id number] 2.16.840.1.090334.3.579.2. 593 1939 Unknown [id number] 2.16.840.1.360717.3.579.2. 593 1939 Unknown [id number] 2.16.840.1.558080.3.579.2. 593 1939 Unknown [id number] 2.16.840.1.199278.3.579.2. 593 1939 Unknown [id number] 2.16.840.1.418889.3.579.2. 593 1939 Unknown [id number] 2.16.840.1.540421.3.579.2. 593 1939 Unknown [id number] 2.16.840.1.254568.3.579.2. 593 1939 Unknown [id number] 2.16.840.1.174213.3.579.2. 593 1939 Unknown [id number] 2.16.840.1.863912.3.579.2. 593 1939 Unknown [id number] 2.16.840.1.166581.3.579.2. 593 1939 Unknown [id number] 2.16.840.1.554483.3.579.2. 593 1939 Unknown [id number] 2.16.840.1.011688.3.579.2. 593 1939 Unknown [id number] 2.16.840.1.497424.3.579.2. 196 1939 Unknown [id number] 2.16.840.1.239795.3.579.2. 196 1939 Unknown [id number] 2.16.840.1.903699.3.579.2. 196 1939 Unknown [id number] 2.16.840.1.854615.3.579.2. 727 1939 Unknown [id number] 2.16.840.1.657576.3.579.2. 727 1939 Unknown [id number] 2.16.840.1.658462.3.579.2. 727 1939 Unknown [id number] 2.16.840.1.637158.3.579.2. 727 1939 Unknown [id number] 2.16.840.1.842729.3.579.2. 1259 1939 Unknown [id number] 2.16.840.1.408760.3.579.2. 727 Private Health Insurance [id number] 2.16.840.1.583180.19 Unknown [id number] 2.16.840.1.715705.3.579.2. 531 Social History Date Type Detail Facility Unknown if ever smoked [employer] Other Start: 01-05-2024 Sex Assigned At F [facility] Start: 1940 Sex Assigned At Female F [facility] Start: 09-17-2023 End: 02-22-2025 Tobacco smoking status Never smoked tobacco (finding) [facility] Tobacco smoking status Never [facility] Start: 1940 Sex assigned at Not on file [facility] Work Phone: Start: 12-21-2009 End: 08-18-2024 Sex Female (finding) [facility] Sexual Orientation [facility] Start: 01-05-2024 History of Social function [facility] Functional Status Date Assessment Result Facility 10-13-2023 Functional Status N/A [facility] 09-17-2023 Functional Status N/A [facility] Clinical Notes 12-19-2021 to 02-10-2025 Maura [...] laser capsulotomy, they are to notify their meter setter promptly if they have a significant change in symptoms, such as flashes of light (photopsia), an increase in floaters, loss of visual field or decrease in visual acuity. Dry Eyes OU -- Environmental changes to minimize dryness and exposure and the use of artificial tears were recommended. documented in this encounter [facility] 01-28-2025 Hospital Discharge instructions Patient Education [...] include: ?8 oz (237 mL) of milk, nnanepb-hrqyiqkyxuhi-rpuon milk, and calcium-fortifiedfruit juice. Calcium-fortified means that [...] ?Spinach (cooked), rhubarb, beets, sweet potatoes, and Slovenian chard. ?Peanuts. ?Potato chips, st lucian fries, and baked potatoes with skin on. ?Nuts and nut products. ?Chocolate. If you regularly take a diuretic medicine, make sure to eat at least 1 or 2 servings of fruits or vegetables that are high in potassium each day. These include: ?Avocado. ?Banana. ?[place], prune, carrot, or tomato juice. ?Baked potato. [...] magnesium, fish oil, or vitamin B6. Take xhix-ptv-rrpgjpv and prescription medicines only as told by [...] Casseroles. Pizza. Lasagna. Frozen meals. Potato chips. [place] Islander fries. The items listed above may not [...] provider. Document Revised: 08/08/2022 Document Reviewed: 08/08/2022 [employer] Patient Education 2023 [employer]. Follow Up Care 11/29/2024 13:19:17 With:SHANNON SALGUERO, Roman Mitchell, URL Address: [address] [place] [address]- When: Unknown [facility] [...] ? 8 oz (237 mL) of milk, tbxxexm-owtwszpthxkb-gijue milk, and calcium-fortifiedfruit juice. Calcium-fortified means that [...] Spinach (cooked), rhubarb, beets, sweet potatoes, and Slovenian chard. ? Peanuts. ? Potato chips, st lucian fries, and baked potatoes with skin on. ? Nuts and nut products. ? Chocolate. ??? If you regularly take a diuretic medicine, make sure to eat at least 1 or 2 servings of fruits or vegetables that are high in potassium each day. These include: ? Avocado. ? Banana. ? [place], prune, carrot, or tomato juice. ? Baked [...] fish oil, or vitamin B6. ??? Take sbpv-rhs-qjeiglv and prescription medicines only as told by your health (more content not included)... [facility] 01-12-2025 Note Admission Informatio n DATE [...] dural tear, nerve root injury, nonunion, DVT/PE, LA, stroke, etc. All questions were answered. Informed [...] by Allan MCDONALD, Mark Vargas 01/20/25 10:33 [facility] 01-04-2025 Note Operative Report DATE OF PROCEDURE: [...] 24cc [employer] SURGEON: Jae Alaniz MD TARIFF INSPECTOR: HARRY Wellington PA-C assisted throughout the procedure [...] dural tear, nerve root injury, nonunion, DVT/PE, LA, stroke, etc. All questions were answered. Informed [...] CARE: The patient (more content not included)... [facility] 01-03-2025 Note Chief Complaint Back [...] Kim SALGUERO Kandijonathan Dooley 01/04/2025 11:13 EDT [facility] 12-28-2024 Evaluation note Diagnosis Onset Date Resolution Abnormal finding on EKG acute A ugust 2024 2:17pm Lumbar back pain acute December 102024 2:17pm Preoperative examination acute December 28 2:17pm Screening mammogram for breast cancer acute February 22 8:25am [facility] Work Phone: 1(356) 392-325506-05-2025 Evaluation note* Diagnosis Onset Date Resolution Status Admit Date Lumbar back pain acute October 9:56am Skin tear of right lower leg without complication acute October 14, 9:56am Abnormal finding on EKG acute A ust 2024 2:17pm [facility] Work Phone: 1(778) 361-260404-09-2025 Evaluation note* Diagnosis Onset Date Resolution Status Admit Date Seasonal allergic rhinitis acute August 18, 2024 11:44am [facility] Work Phone: 1(475) 348-959104-09-2025 Evaluation note* Diagnosis Onset Date Resolution Status Admit Date Seasonal allergic rhinitis acute August 18, 2024 11:44am Lumbar back pain acute September 15, 2024 8:13am Lumbar back pain acute October 9:56am [facility] Work Phone: 1(560) 184-643508-26-2024 History of Present illness Narrative* Maura Hoyt MD - 01/05/2024 2:00 PM EDT Assessment/Plan Dry Eyes OU -- Environmental changes to minimize dryness and exposure and the use of artificial tears were recommended. documented in this [facility]06-03-2024 Hospital Discharge instructions Patient Education 10/13/2023 13:39:08 Kidney Stones, Ppkr-dr-Yrko Kidney Stones Kidney stones are rock-like masses [...] Follow these instructions at home: Medicines Take sjxj-ivq-mwkeulv and prescription medicines only as told by [...] provider. Document Revised: 12/31/2021 Document Reviewed: 12/31/2021 [employer] Patient Education 2022 [employer]. Follow Up Care 09/17/2023 08:40:02 With:SHANNON SALGUERO, Roman Mitchell, JJ Address: [facility] [address] [place] [address]- [phone] When: Unknown [facility] Hospital Discharge instructions Patient Education [...] Follow these instructions at home: Medicines Take jghr-cxa-qscetke and prescription medicines only as told by [...] provider. Document Revised: 08/07/2022 Document Reviewed: 08/07/2022 [employer] Patient Education 2022 [employer]. Follow Up Care 09/11/2023 08:49:49 With:SHANNON SALGUERO, Roman Mitchell, URL Address: [facility] [address] [place] [address]- When: Unknown [facility] 09-22-2023 Evaluation note* Encounter Date Diagnosis Assessment Notes Treatment Notes Treatment Clinical Notes Jan, Seasonal allergic rhinitis, unspecified trigger (ICD-10 - J30.2) [facility] Other 09-01-2023 Evaluation note* Encounter Date Diagnosis Assessment Notes Treatment Notes Treatment Clinical Notes Jan, Piriformis syndrome of left side (ICD-10 - G57.02) Unable to add more tramadol - likely has pain clinic w [facility]. PT order printed. Add steroids. Also gave copies of home exercises. [facility] Other 06-19-2023 Evaluation note* Encounter Date Diagnosis [...] - order handwritten and given to pt [facility] Other 04-27-2023 NoteCONSULTATION CONSULTATION DATE: 09/05/2022 TO: [...] our patients to inform us about any roxp-fvj-ksxljqy medications or herbal remedies/nutritional supplements/alternative remedies. 2. [...] with their primary care provider.[id number] Note CONSULTATION PROCEDURE DATE: 12/25/2021 PREOPERATIVE DIAGNOSIS: [...] of motion exercises are performed.[facility] 12-19-2021 NoteCONSULTATION CONSULTATION DATE: 12/19/2021 This [...] where she was seen by the physician animal care assistant in the office and received left [...] the plan of care, to be contacted [facility] note Future Appointments Appointment Date:10/13/2023 12:15:00 PM Scheduled Provider:Roman GUAN MD Location:[facility] Appointment Type:URO Office Visit [facility] Evaluation + Plan note Future Appointments Appointment Date:01/28/2025 10:15:00 AM Scheduled Provider:Roman GUAN MD Location:[facility] Appointment Type:URO Office Visit [facility] evalkcyagl noteNo InformationNort MyoKardia Other evaluation noteNo assessment information available [facility] Work Phone: evalubsmsr note* Diagnosis Onset Date Resolution Status Right lumbar pain acute [facility] Work Phone: evaluation note* Diagnosis Onset Date Resolution Status Right lumbar pain acute Medicare annual wellness visit, subsequent acute Nephrolithiasis acute Screening mammogram for breast cancer acute [facility] Work Phone: evaluation note* Diagnosis Onset Date Resolution Status Right lumbar pain acute Medicare annual wellness visit, subsequent acute Nephrolithiasis acute Screening mammogram for breast cancer acute Laceration of left lower leg without complication acute Lumbar back pain acute [facility] Work Phone: Evaluation note* Diagnosis Dry [...] Surgical History stapedectomy Hospitalization History see above [facility] Other Hospital course Narrative No data available for this section [facility] Discharge instructionsAmbulatory Orders* Referral to PT / OT / Speech (PT/OT/SP) Location: None [facility] Work Phone: Hospital Discharge instructionsAmbulatory Orders* Referral to Orthopedic Surgery Location: None [facility] Work Phone: Hospital Discharge instructions No data available for this section [facility] progress note No data available for this section [facility] Reason for referral (narrative)No reason for referral [facility] Work [facility]: Summary Purpose Family History Relationship Condition Age [...] 11:4 4am fu after PT-doing pt in [place] September 15, 2024 8:13am Reason for Visit Admit Date Seasonal allergic rhinitis August 18 11:44am Chief Complaint Admit Date Allergy Shot August 18, 2024 11:4 4am fu after PT-doing pt in [place] September 15, 2024 8:13am back pain October [...] Abnormal finding on EKG December 28 2:17pm Chief Complaint Admit Date Surgical Clearance (Dr. Lozano) December 28, 2024 2:17pm Left Side Pain February 22, 2025 8 :25am Reason for Visit Admit Date Abnormal finding on EKG December 28 2:17pm Lumbar back pain December 28, 2024 2: 17pm Preoperative examination December 28 2:17pm Screening mammogram for breast cancer O[place] tober 2024 8:25am Additional Source Comments INFORMATION SOURCE (unrecogn ized section and content) DATE CREATED AUTHOR 10/18/2022 [facility] DATE CREATED AUTHOR AUTHOR'S ORGANIZ ATION 09/19/2024 [facility] DATE CREATED AUTHOR AUTHOR'S ORGANIZ ATION 02/02/2025 [facility] DATE CREATED AUTHOR AUTHOR'S ORGANIZ ATION 02/04/2025 [facility] DATE CREATED AUTHOR AUTHOR'S ORGANIZ ATION 02/15/2025 [facility] DATE CREATED AUTHOR AUTHOR'S ORGANIZ ATION 02/19/2025 [facility] REASON FOR VISIT (unrecogniz ed section and content) Reason Comments Eye Exam [facility] Teams (unrecognized sec tion and content) Team Status: Active Member Role Status Dates Ruba Higgins MD Primary Care Provider Active Team Status: Active Member Role Status Dates [...] December 28, 2024 End: December 28, 2024 Team Status: Inactive Member Role Status Dates Ruba Higgins MD Primary Care Provider Active Start: February 22, 2025 End: February 22, 2025 Ruba Higgins MD Attending Provider Active St art: February 22, 2025 End: February 22, 2025 Team Status: Active Member Role Status Dates [...] March 16, 2024 End: March 16, 2024 [facility] Relationship Specialty Start Date End Date Valeriy Higgins MD [address] [place] [address] [phone] PCP - General 12/25/22 [facility] Relationship Specialty Start Date End Date Valeriy Higgins MD [address] [place] [phone] PCP - General 12/25/22 Team Status: Inactive [...] December 28, 2024 End: December 28, 2024 [facility] Relationship Specialty Start Date End Date Valeriy Higgins MD [address] [place] [phone] PCP - General 12/25/22 [facility] Relationship Specialty Start Date End Date Valeriy Higgins MD [address] [place] [id number] PCP - General 12/25/22 Team Status: Inactive Member Role Status Dates Ruba Higgins MD Primary Care Provider Active Start: February 22, 2025 End: February 22, 2025 Ruba Higgins MD Attending Provider Active St art: February 22, 2025 End: February 22, 2025 Goals (unrecognized section and content) Goals may [...] BE BASED ON THE PRIMARY CLINICAL RECORDS. [facility] [employer] provides no warranty or guarantee of the accuracy or completeness of information in this document.
--- NOTE | 2025-02-25 10:49 | MM_ITS ---
Patient Name: EDUARDO LEA MR#: [id number] : 1940 Exam Date: 02/25/2025 Ordering Doctor: DR RUBA HIGGINS M.D. RADIOLOGY REPORT PROCEDURE: MM TOMOSYNTHESIS SCREENING BI COMPARISON: MM TOMOSYNTHESIS SCREENING BI, 11/17/2023. MM TOMOSYNTHESIS SCREENING BI, 11/14/2022. MG MAMM SCREEN 3D [facility] CAD, 11/07/2021. MG MAMM GI[facility] SCRN W CAD DIG, 09/07/2013. INDICATIONS: screening for malignant neoplasm Calculator Name [facility] Breast Cancer Risk Assessment Tool 5 Year Breast Cancer Risk 1.00% Lifetime Breast Cancer Risk 1.00% Personal Breast Cancer No Personal Ovarian Cancer No Treatments None Family Cancers Mother with ovarian cancer at age ~48. LOCATION: [facility] BREAST COMPOSITION: The breasts are extremely dense, which lowers the sensitivity of mammography. FINDINGS: RIGHT BREAST: No significant suspicious finding. Benign-appearing calcifications are present. LEFT BREAST: No significant suspicious finding. Benign-appearing calcifications are present. There is a similar focal asymmetry on the left. DIAGNOSTIC CATEGORY 2--BENIGN FINDING. NO CHANGE FROM COMPARISON. RECOMMENDATIONS: ROUTINE MAMMOGRAM AND CLINICAL EVALUATION IN 12 MONTHS. Dictated by: Rock Bustamante MD on 02/25/2025 at 13:21 Approved by: Rock Bustamante MD on 02/25/2025 at 13:23
== END 2025-02-25 10:23 | disposition home or self-care (01) ==
LOC: MAMMO 10:22
PROVIDERS: PCP Family Medicine; Visit Provider Family Medicine
DX: Z12.31 Encounter for screening mammogram for malignant neoplasm of breast (principal); Z80.41 Family history of malignant neoplasm of ovary
CPT/HCPCS: 77063; 77067

== ENCOUNTER 2025-03-03 07:52 | Outpatient (RCR) | payer MEDICARE, SELFPAY | END 2025-05-04 06:51 | disposition home or self-care (01) | LOC: PT 07:52 | PROVIDERS: PCP Family Medicine | DX: M54.50 Low back pain, unspecified (principal); Z47.89 Encounter for other orthopedic aftercare | CPT/HCPCS: 97035; 97110; 97112; 97161 ==